=== PATIENT | male | born 1985 | race Caucasian/White ===

== ENCOUNTER 2019-08-15 03:39 | Inpatient (IN) | payer BC, SELFPAY ==
[2019-08-15] VITALS (22 sets, daily range): BP systolic 93–151; BP diastolic 36–79; PULSE 75–123; RESP 16–26; TEMP 36.6–37.8; O2SAT 86–100
--- NOTE | ~2019-08-15 | BM_ITS ---
EXAMINATION: CCL bone marrow asp w bx diag DATE: 08/18/2019 11:25 INDICATION: Anemia. TECHNIQUE: A time-out was performed to verify the patient's name, date of , and procedure to b e performed. The procedure including the risks, benefits, and alternatives was discussed with the pat ient. Risks discussed included bleeding and infection. The patient understood the risks and agreed to proceed. The skin overlying the right ilium was prepped and draped in usual sterile fashion. Anest hetic was administered with 1% lidocaine subcutaneously. 100 mcg fentanyl IV was given for pain contr ol. An 11 gauge needle was inserted into the ilium with fluoroscopic guidance. Bone marrow was aspir ated. An 8 gauge needle was then inserted into the ilium with fluoroscopic guidance. A core bone lianna ow biopsy was obtained. There were no immediate complications. Fluoroscopy exposure time was 0.0 quinn ginette. The total number of images was 8. FINDINGS: Real-time fluoroscopy demonstrates a marker overlying the right posterior superior iliac sp ine. IMPRESSION: 1. Fluoro-guided bone marrow aspiration. 2. Fluoro-guided bone marrow core biopsy. Reviewed, dictated and finalized at location A. H MERCERIZING SUPERVISOR
--- NOTE | ~2019-08-15 | XR_ITS ---
XR chest 2V DATE: 08/15/2019 04:32 INDICATION: Productive cough, fever, body aches TECHNIQUE: PA and lateral views COMPARISON: 04/11/2010 two-view chest FINDINGS: Normal heart size. No hilar or mediastinal enlargement. No pulmonary infiltrate or consolid ation, pleural effusion or pulmonary vascular congestion or pneumothorax. IMPRESSION: No active cardiopulmonary disease Reviewed, dictated and finalized at location A. STORE BANKER
--- NOTE | ~2019-08-15 | US_ITS ---
EXAMINATION: US renal BI EXAM DATE: 08/15/2019 11:32 INDICATION: Acute kidney insufficiency. TECHNIQUE: Multiple grayscale and Doppler images of the kidneys were obtained (by a technologist who performed the scan) and subsequently reviewed. There is no prior study for comparison. FINDINGS: There is hepatic steatosis. Right kidney: There is normal contour and echogenicity. It measures 11.9 x 5.1 x 6.5 centimeters. T here are no focal renal lesions identified. There is no hydronephrosis. Left kidney: Poorly visualized. There is normal contour and echogenicity. It measures 11.2 x 6.0 x 6 .5 centimeters. There are no focal renal lesions identified. Probably no hydronephrosis. The bladder is undistended and not visualized. IMPRESSION: 1. Sonographically unremarkable kidneys. 2. Hepatic steatosis. Reviewed, dictated and finalized at location A. SUPERVISOR
--- NOTE | ~2019-08-15 | CT_ITS ---
EXAMINATION: CT abdomen pelvis wo con DATE: 08/15/2019 05:51 INDICATION: Generalized abdominal pain, body aches, nausea TECHNIQUE: Computed tomography (CT) of the abdomen and pelvis was performed without intravenous contr ast. Automated exposure control and iterative reconstruction technique were employed. Exam dose: 164 2.26 mGy-cm total exam DLP. COMPARISON: None. FINDINGS: There are extensive micronodular densities scattered throughout the included lower lung zon es including middle lobe and lingula, both lower lobes. Normal heart size. No pericardial or pleural effusion. There is hepatic steatosis. No hepatic, splenic, pancreatic, adrenal or renal space-occupying mass le yanet is evident on this limited noncontrast examination. Normal caliber of the abdominal aorta. No intraperitoneal or retroperitoneal or pelvic mass lesion or adenopathy or ascites. The urinary bladder and prostate gland are unremarkable. Normal appendix. No bowel obstruction or intraperitoneal free air. There are some fluid levels in the colon which may be due to enteritis. There is a small fat-containing umbilical hernia and a small supraumbilical fat-containing hernia. No significant abnormality of the included skeletal structures IMPRESSION: Extensive micronodular densities in the lower lung zones; clinical correlation and follo w-up imaging is recommended. Hepatic steatosis There are some fluid levels in the colon which may be due to enteritis. Reviewed, dictated and finalized at Location A. Reviewed, dictated and finalized at location A. ATE CLERK IMPRESSION: Extensive micronodular densities in the lower lung zones; clinical correlation and follow-up imaging is recommended. Hepatic steatosis There are some fluid levels in the colon which may be due to enteritis.
--- NOTE | ~2019-08-15 | XR_ITS ---
EXAMINATION: XR chest 2V DATE: 08/21/2019 14:16 INDICATION: Cough. TECHNIQUE: Frontal and lateral views of the chest were obtained. COMPARISON: Chest 2 views 08/15/2019, CT abdomen and pelvis 08/15/2019 FINDINGS: There is a reticulonodular pattern in the mid and lower lung zones. No pleural effusion or pneumothorax. The heart size is normal. There is motion artifact on the lateral view. IMPRESSION: 1. Stable reticulonodular pattern in the mid and lower lung zones, consistent with pneumonia. Reviewed, dictated and finalized at location A. E BALL MIXER IMPRESSION: 1. Stable reticulonodular pattern in the mid and lower lung zones, consistent w ith pneumonia.
--- NOTE | 2019-08-15 04:31 | ED.URI ---
HPI - URI/Sore Throat General Chief Complaint: Upper Respiratory Infection <Jatinder Pedro DO - Last Filed: 08/15/19 06:18> Stated Complaint: COUGH <Jatinder Pedro DO - Last Filed: 08/15/19 06:18> Time Seen by Provider: 08/15/19 04:09 <Jatinder Pedro DO - Last Filed: 08/15/19 06:18> Source: old records reviewed <Jatinder Pedro DO - Last Filed: 08/15/19 06:18> History of Present Illness HPI Narrative: Patient presents emergency department from home for upper respiratory infection. Patient states symptoms been ongoing for the past 2 weeks. She has had a cough is been productive of yellow sputum as well as rhinorrhea sore throat nausea and vomiting and intermittent diarrhea. Patient states he has had intermittent fevers with last fever 3 days ago. He denies any chest pain. Does note some mild upper abdominal pain.. Patient states he saw his PCP last week and was on steroids and antibiotics which she has since finished <Jatinder Pedro DO - Last Filed: 08/15/19 06:18> Related Data Home Medications: Home Medications Medication Instructions Recorded Confirmed albuterol sulfate 1 INHALATION Q4-5H 08/15/19 <Jatinder Pedro DO - Last Filed: 08/15/19 06:18> Allergies/Adverse Reactions: Allergies Allergy/AdvReac Type Severity Reaction Status Date / Time peanut Allergy Unknown Itching Verified 08/15/19 03:46 <DO Angi Alaniz Last Filed: 08/15/19 06:18> Review of Systems Review of Systems: Narrative: Gen.: Reports intermittent fevers ENT: Reports congestion Respiratory: Denies shortness of breath reports cough CV: Denies chest pain or palpitations GI: Reports nausea vomiting Musculoskeletal: Denies back pain or muscle pain Neuro: Denies numbness, tingling, weakness or focal weakness Skin: Denies rash Except as documented, all other systems reviewed and negative <Jatinder Pedro DO - Last Filed: 08/15/19 06:18> [facility] Surgical History Surgical History: Surgical History (Updated 08/15/19 @ 04:33 by Jatinder Pedro DO) H/O vasectomy <Jatinder Pedro DO - Last Filed: 08/15/19 06:18> Social History Social History: Social History (Updated 08/15/19 @ 04:33 by Jatinder Pedro DO) Smoking status: Former smoker Gender identity (if verbalized by the patient): Male <Jatinder Pedro DO - Last Filed: 08/15/19 06:18> Exam Narrative: Exam Narrative: APPEARANCE: No acute distress, nontoxic, resting in bed EYES: EOMI HEENT: Normocephalic, atraumatic, TMs clear bilaterally, bilateral turbinates boggy, mild erythema no exudate posterior pharynx oral mucosa dry RESPIRATORY: No respiratory distress Clear to auscultation bilaterally with no rhonchi wheezing or rales. CARDIOVASCULAR: Regular rate and rhythm without murmurs rubs or gallops. ABDOMINAL: Soft, nondistended, tender palpation epigastric and left upper quadrant, no tenderness right upper quadrant, right lower quadrant left lower quadrant, no rebound or guarding MUSCULOSKELETAl: Moves all extremities. No clubbing, cyanosis or edema. NEURO: Awake and alert. Following commands, speech normal, no focal deficits SKIN:: Warm, dry. No rashes lesions or abrasions PSYCHIATRIC: Normal affect/mood, <Jatinder Pedro DO - Last Filed: 08/15/19 06:18> Course Course Emergency Course: Of note patient initially with symptoms of upper respiratory infection has been having some nausea and vomiting. Toradol was initially given as the patient has no history of renal insufficiency. Creatinine did come back elevated and will hold any further NSAIDs <Jatinder Pedro DO - Last Filed: 08/15/19 06:18> Reevaluation(s) Reevaluation #1: He is in acute respiratory failure with new oxygen requirement. He is in acute renal failure with creatinine of 3.0. CT shows likely viral pneumonia. He also has mild rhabdomyolysis and possible UTI. I will plan to admit for IVF. Despite this likely b
[2019-08-15] MEDS: LACTATED RINGERS 1,000 ML 999 ML IV CONT ×2 (04:51→07:17)
[2019-08-15] MEDS: KETOROLAC 30 MG/ML VIAL (*BKC) IV PUSH (04:51)
[2019-08-15 05:02] LABS: Alanine Aminotransferase 41 U/L (4-50); Albumin Level 3.7 g/dL (3.5-5.1); Alkaline Phosphatase 85 U/L (38-126); Aspartate Amino Transferase 67 U/L (17-59); Bilirubin,Total 4.1 mg/dL (0.2-1.3); Blood Urea Nitrogen 47 mg/dL (9-20); Calcium 8.6 mg/dL (8.4-10.2); Carbon Dioxide 30 mmol/L (22-30); Chloride 91 mmol/L (98-107); Estimated Glomerular Filt Rate 24; Glucose 125 mg/dL (75-110); Potassium 3.4 mmol/L (3.4-5.0); Sodium 133 mmol/L (137-145)
[2019-08-15] MEDS: ALBUTEROL SULFATE NEB 2.5 MG/0.5 ML INH 5 MG INHALATION ×3 (05:11→20:22)
[2019-08-15] MEDS: IPRATROPIUM BR 0.02% INH SOLN 0.5 MG/2.5 ML VIAL INHALATION ×3 (05:11→20:22)
--- NOTE | 2019-08-15 05:39 | PC.NURSE ---
pt to CT via stretcher
[2019-08-15 06:06] LABS: Lactic Acid Reflex 1.1 mmol/L (0.7-2.1); Lipase 51 U/L (23-300)
[2019-08-15 06:10] LABS: INR 1.1; Prothrombin Time 14.2 Seconds (11.1-14.7)
[2019-08-15 06:11] LABS: Partial Thromboplastin Time 34.2 SECONDS (22.3-36.8)
[2019-08-15 06:27] LABS: Add Urine Microscopic? YES; Appearance Urine Cloudy (Clear); Bacteria Urine Trace /hpf; Bilirubin Urine Negative (Negative); Blood Urine 3+ (Negative); Color Urine Amber (Yellow); Glucose Urine UA Negative (Negative); Ketones Urine Negative (Negative); Leukocyte Esterase Ur 1+ LEU/UL (Negative); Mucus Urine Rare /lpf; Nitrate Urine Negative (Negative); Protein Urine 2+ mg/dL (Negative); RBC Urine 51-75 /hpf (0-2); Specific Grav Ur 1.017 (1.001-1.035); Squamous Epithelial Cell Urine Moderate /hpf (Few); Urobilinogen Urine Negative mg/dL (<2.0); WBC Urine 31-50 /hpf
[2019-08-15 06:49] LABS: Basophils Absolute Auto 0.1 K/mm3 (0.0-0.1); Basophils Percent Auto 0.3 % (0.2-1.2); Eosinophils Absolute Auto 0.2 K/mm3 (0-0.3); Eosinophils Percent Auto 0.7 % (0-4.4); Hematocrit 25.5 % (42.0-52.0); Hemoglobin 8.9 g/dL (14.0-18.0); Immature Granulocyte Absolute 0.46 K/mm3 (0.00-0.031); Immature Granulocyte Percent A 1.9 % (0-0.5); Lymphocytes Absolute Auto 1.89 K/mm3 (0.9-3.2); Lymphocytes Percent Auto 7.8 % (18.3-44.2); Mean Corpuscular HGB Conc 34.9 g/dl (32-36); Mean Corpuscular Hemoglobin 31.7 pg (26-34); Mean Corpuscular Volume 90.7 fl (80-100); Mean Platelet Volume 10.4 fl (7.4-10.4); Monocytes Absolute Auto 1.8 K/mm3 (0.1-0.6); Monocytes Percent Auto 7.4 % (2.6-8.5); Neutrophils Absolute Auto 19.9 K/mm3 (1.3-6.7); Neutrophils Percent Auto 81.9 % (45.5-73.1); Platelet Count Result 269 k/mm3 (150-375); Red Blood Count 2.81 M/mm3 (4.6-6.20); Red Cell Distribution Width 19.3 % (11.5-14.5); White Blood Count 24.2 K/mm3 (4.5-10.0)
[2019-08-15 07:21] LABS: Creatine Kinase 1108 U/L (55-170)
--- NOTE | 2019-08-15 08:00 | PC.NURSE ---
PT IV NOTED TO BE INFILTRATED AND PT UPPER AND LOWER ARM IS COOL, SWOLLEN AND TAUGHT. ERP AT BEDSIDE, DOPPLES PULSE WITHOUT DIFFICULTY, EXTREMITY ELEVATED PER HIS INSTRUCTION, NO FURTHER ORDERS AT THIS TIME.
--- NOTE | 2019-08-15 08:18 | PM.IMHP ---
H&P: HPI History of Present Illness Chief complaint: Acute respiratory failure with hypoxia/Pneumonia Narrative: Zheng Carrizales is a 34 year old healthy male here for viral URI symptoms and found to have LEONEL and sepsis. Patient's symptoms began about 2 weeks ago. He has been having nausea and vomiting. He has also been having rhinorrhea and congestion and cough. No otalgia. He did travel to [place] but had symptoms prior to boarding the plane. No other travel. Patient was having fever, chills and night sweats. He saw his primary care doctor on August 05 and was treated with albuterol, Augmentin x 10 days, prednisone x7 days, anti emetic and antitussive medication. Symptoms improved over the next 4-5 days but condition worsened about 5 days ago. He has just finished his antibiotics. He has been having shortness of breath with dyspnea on exertion. He has been having coughing jags that break with vomiting. His cough is mostly dry but does produce yellow-green sputum at times. Did have 1 episode of hemoptysis. His fever has returned to as high as 104. Is complaining of upper abdominal pain and back pain. His oral intake has been poor mostly just clear liquids. Over the past 2 days he has had bilateral lower extremity edema and tingling in his feet. He has chest ?tightness? for the past 2 days and it has been constant associated with the shortness of breath. He is having diarrhea that he describes as liquid stool but having a bowel movement every other day on average. No melena or hematochezia. No hematemesis. His urine is dark but no foam or hematuria. He denies dysuria. Urine output has been poor. His son had cold-like symptoms a month ago but he tolerated them well. Patient has difficulty lying flat in bed because of shortness of breath. He has some mild myalgias. Patient has been sitting on the couch and not very active the past 2 weeks. Because of the persistent symptoms patient presented to the emergency room for evaluation. The emergency room patient fever to 100 0. Pulse was 123 with respiratory rate 26. Blood pressure is 116/62. Patient was seen and examined in the emergency room. White count 29343 the hemoglobin 8.9. BUN 47 creatinine 3. Total bilirubin is 4.1. Total CK is 1100. UA does shows 3+ blood and 51-75 red cells 31-50 white cells . He was started on IV fluids. He was given nebulizer treatment. Rocephin and azithromycin started. Protonix given as well. During my exam in the ER, it was noted that his right arm had become extremely edematous. His IV fluids were stopped. Patient with complain numbness tingling in his fingers. Were unable to palpate a radial pulse to the edema. Informed the ER physician and we were able to Doppler a pulse. Right arm was elevated. This will need close monitoring. Review of Systems Review of Systems: All systems reviewed & are unremarkable except as noted in HPI and below PMFSH Surgical History Surgical History (Updated 08/15/19 @ 08:43 by Cuba Yadav MD) H/O vasectomy Social History Social History (Updated 08/15/19 @ 08:34 by Cuba Yadav MD) Social History: Patient quit smoking about 5 years ago after smoking a pack a day for about 12 years. He denies alcohol or drug use. Lives at home with his 2 sons. He is . Children currently staying with his ex-. Patient is a full code. He nominates his ex- Karla be the individual would make medical decisions for him if he is unable. Smoking packs per day: 1 Smoking cigarettes per day: 20.0 Smoking status: Former smoker Tobacco type: cigarettes Smoking end date: 08/04/14 Alcohol intake: never Substance use: never Gender identity (if verbalized by the patient): Male Spiritual care concerns: No Agree to blood products: No Meds Home Medications and Allergies Home Medications Medication Instructions Recorded Confirmed Type No Home Medications 08/16/19 08/16/19 H
[2019-08-15] MEDS: ONDANSETRON INJ 4 MG/2 ML VIAL IV PUSH (08:32)
[2019-08-15] MEDS: PANTOPRAZOLE SODIUM IV 40 MG VIAL IV PUSH (08:33)
[2019-08-15] MEDS: SODIUM CHLORIDE 0.9% IV 1,000 ML 999 ML IV CONT (08:54)
[2019-08-15 10:11] LABS: Bilirubin Indirect 2.3 mg/dL (0-1.1); Lactate Dehydrogenase 704 U/L (313-618)
[2019-08-15 10:13] LABS: CRP 19.3 mg/dL (<1.0)
[2019-08-15] MEDS: LACTATED RINGERS 1,000 ML 125 ML IV CONT ×2 (10:31→18:54)
--- NOTE | 2019-08-15 10:33 | PCRCNOTE ---
Window of time for administration has passed. See next scheduled administration.
[2019-08-15 11:01] LABS: Folic Acid 7.7 ng/mL (2.76->20)
[2019-08-15 11:37] LABS: Sodium Urine Random < 5 meq/L
[2019-08-15 12:15] LABS: Iron 73 ug/dL (49-181)
[2019-08-15 12:30] LABS: Percent Iron Saturation 41 % (20-50)
--- NOTE | 2019-08-15 15:29 | PC.NURSE ---
Patient arrived on our floor at 0900.
--- NOTE | 2019-08-15 16:04 | PC.NURSE ---
Patient arrived on our floor from ER @0900.
[2019-08-15 18:57] LABS: Albumin Level 2.8 g/dL (3.5-5.1); Blood Urea Nitrogen 55 mg/dL (9-20); Calcium 7.7 mg/dL (8.4-10.2); Carbon Dioxide 26 mmol/L (22-30); Chloride 97 mmol/L (98-107); Estimated Glomerular Filt Rate 27; Glucose 91 mg/dL (75-110); Phosphorus 2.7 mg/dL (2.5-4.5); Potassium 3.5 mmol/L (3.4-5.0); Sodium 132 mmol/L (137-145)
--- NOTE | 2019-08-15 19:42 | PC.NURSE ---
Patient states taking no daily medication outside of the hospital.
[2019-08-16] VITALS (20 sets, daily range): BP systolic 96–123; BP diastolic 47–77; PULSE 88–105; RESP 16–20; TEMP 36.6–37.3; O2SAT 91–100
[2019-08-16] MEDS: ALBUTEROL SULFATE NEB 2.5 MG/0.5 ML INH 5 MG INHALATION ×4 (02:14→20:59)
[2019-08-16] MEDS: IPRATROPIUM BR 0.02% INH SOLN 0.5 MG/2.5 ML VIAL INHALATION ×4 (02:15→20:59)
[2019-08-16] MEDS: LACTATED RINGERS 1,000 ML 125 ML IV CONT ×2 (03:00→17:00)
[2019-08-16 06:47] LABS: Alanine Aminotransferase 35 U/L (4-50); Albumin Level 2.8 g/dL (3.5-5.1); Alkaline Phosphatase 65 U/L (38-126); Aspartate Amino Transferase 54 U/L (17-59); Bilirubin,Total 2.9 mg/dL (0.2-1.3); Blood Urea Nitrogen 46 mg/dL (9-20); Calcium 7.5 mg/dL (8.4-10.2); Carbon Dioxide 28 mmol/L (22-30); Chloride 96 mmol/L (98-107); Creatine Kinase 834 U/L (55-170); Estimated Glomerular Filt Rate 29; Glucose 98 mg/dL (75-110); Phosphorus 3.2 mg/dL (2.5-4.5); Potassium 3.1 mmol/L (3.4-5.0); Sodium 134 mmol/L (137-145)
[2019-08-16 07:11] LABS: Basophils Percent Auto 0.2 % (0.2-1.2); Eosinophils Absolute Auto 0.3 K/mm3 (0-0.3); Eosinophils Percent Auto 1.5 % (0-4.4); Immature Granulocyte Absolute 0.25 K/mm3 (0.00-0.031); Immature Granulocyte Percent A 1.5 % (0-0.5); Lymphocytes Absolute Auto 1.89 K/mm3 (0.9-3.2); Lymphocytes Percent Auto 11.5 % (18.3-44.2); Mean Corpuscular HGB Conc 32.2 g/dl (32-36); Mean Corpuscular Hemoglobin 28.6 pg (26-34); Mean Corpuscular Volume 88.7 fl (80-100); Mean Platelet Volume 10.5 fl (7.4-10.4); Monocytes Absolute Auto 1.2 K/mm3 (0.1-0.6); Monocytes Percent Auto 7.1 % (2.6-8.5); Neutrophils Absolute Auto 12.8 K/mm3 (1.3-6.7); Neutrophils Percent Auto 78.2 % (45.5-73.1); Nucleated Red Blood Cells Perc 0.1 % (0.0-0.2); Platelet Count Result 242 k/mm3 (150-375); Red Blood Count 2.31 M/mm3 (4.6-6.20); Red Cell Distribution Width 16.1 % (11.5-14.5); White Blood Count 16.4 K/mm3 (4.5-10.0)
[2019-08-16 07:13] LABS: Hemoglobin 6.6 g/dL (14.0-18.0)
[2019-08-16 07:14] LABS: Hematocrit 20.5 % (42.0-52.0)
[2019-08-16 07:45] LABS: Complement C3 68 mg/dL (88-165)
--- NOTE | 2019-08-16 07:59 | PM.IMPN ---
Progress Note: A&P Assessment and Plan (1) Sepsis: Qualifiers: Acute renal failure type: with acute tubular necrosis Sepsis acute organ dysfunction status: with acute organ dysfunction Sepsis type: sepsis due to unspecified organism Severe sepsis acute organ dysfunction type: acute renal failure Severe sepsis shock status: without septic shock Qualified Code(s): A41.9 - Sepsis, unspecified organism; R65.20 - Severe sepsis without septic shock; N17.0 - Acute kidney failure with tubular necrosis Code(s): A41.9 - Sepsis, unspecified organism Status: Acute (2) Acute renal failure: Qualifiers: Acute renal failure type: unspecified Qualified Code(s): N17.9 - Acute kidney failure, unspecified Code(s): N17.9 - Acute kidney failure, unspecified Status: Acute (3) Acute respiratory failure with hypoxia: Code(s): J96.01 - Acute respiratory failure with hypoxia Status: Acute (4) Pneumonia: Qualifiers: Laterality: bilateral Lung location: lower lobe of lung Pneumonia type: due to unspecified organism Qualified Code(s): J18.9 - Pneumonia, unspecified organism Code(s): J18.9 - Pneumonia, unspecified organism Status: Acute (5) Anemia: Qualifiers: Anemia type: unspecified type Qualified Code(s): D64.9 - Anemia, unspecified Code(s): D64.9 - Anemia, unspecified Status: Acute (6) Rhabdomyolysis: Qualifiers: Rhabdomyolysis type: non-traumatic Qualified Code(s): M62.82 - Rhabdomyolysis Code(s): M62.82 - Rhabdomyolysis Status: Acute (7) Arm edema: Code(s): R60.0 - Localized edema Status: Acute (8) Hyperbilirubinemia: Code(s): E80.6 - Other disorders of bilirubin metabolism Status: Acute (9) UTI (urinary tract infection): Qualifiers: Hematuria presence: with hematuria Urinary tract infection type: acute cystitis Qualified Code(s): N30.01 - Acute cystitis with hematuria Code(s): N39.0 - Urinary tract infection, site not specified Status: Acute Additional Plan 08/15/2019 -- Patient to be admitted to the medical floor. Continue to have the right arm elevated and will neuro checks every 2 hours. This should resolve with time. Patient appears to have a viral syndrome with viral pneumonia. Will check pertussis and chlamydia. Will continue Rocephin for possible UTI. Continue azithromycin for possible atypical pneumonia. Blood and urine cultures have been collected. Will check iron studies B12 given his anemia. There is concern for possible hemolysis given the elevated total bili. Will check LDH, indirect bili and haptoglobin. Check CRP. Renal failure most likely prerenal from his nausea, vomiting and diarrhea but cannot exclude post infectious etiology. The mild rhabdomyolysis may also be contributing although did not feel this is the primary insult to the kidney. Consider also acute interstital nephritis since recently on Augmentin. Monitor urine output closely. Check urine studies and renal ultrasound. He denies HIV risk factors. Will check a rapid strep screen. Check ASO. Lower extremity edema probably related to renal failure poor urine output. Will monitor the values closely and consider nephrology consult if he does not improve as expected. SCDs for DVT prophylaxis. Further recommendations as course dictates. 08/16/19 -- Urine Na<5 to suggest a prerenal componenet. Cr trending down but without significant change overnight. TCK trending down and is the TBili. WBC better but cough persistent. RSS negative. Cultures pending. Histo, Legionella and other atypical infections being considered. Consider Coccidio but Downs not in that area. Hepatitis panel negative. Hgb dropped to 6.6. Transfusion ordered. Suspect related to IV fluids and not continued loss. Will place on telemetry given his symptoms of palpitations. Replace potassium. Nephrolog
[2019-08-16] MEDS: POTASSIUM CHLORIDE 20 MEQ TABLET 40 MEQ PO (08:07)
[2019-08-16 09:13] LABS: Hepatitis B Surface Antigen Negative (Negative)
[2019-08-16 09:19] LABS: HAV RESULT Negative (Negative); Hepatitis B Core IgM Result Negative (Negative)
[2019-08-16 09:31] LABS: Hepatitis C Virus Antibody Negative (Negative)
[2019-08-16] MEDS: PANTOPRAZOLE SODIUM IV 40 MG VIAL IV PUSH (12:28)
--- NOTE | 2019-08-16 18:10 | PM.CNNEP ---
Assessment and Plan Assessment and plan (1) Acute renal failure: Qualifiers: Acute renal failure type: unspecified Qualified Code(s): N17.9 - Acute kidney failure, unspecified Code(s): N17.9 - Acute kidney failure, unspecified Status: Acute (2) Sepsis: Qualifiers: Acute renal failure type: with acute tubular necrosis Sepsis acute organ dysfunction status: with acute organ dysfunction Sepsis type: sepsis due to unspecified organism Severe sepsis acute organ dysfunction type: acute renal failure Severe sepsis shock status: without septic shock Qualified Code(s): A41.9 - Sepsis, unspecified organism; R65.20 - Severe sepsis without septic shock; N17.0 - Acute kidney failure with tubular necrosis Code(s): A41.9 - Sepsis, unspecified organism Status: Acute (3) UTI (urinary tract infection): Qualifiers: Hematuria presence: with hematuria Urinary tract infection type: acute cystitis Qualified Code(s): N30.01 - Acute cystitis with hematuria Code(s): N39.0 - Urinary tract infection, site not specified Status: Acute (4) Pneumonia: Qualifiers: Laterality: bilateral Lung location: lower lobe of lung Pneumonia type: due to unspecified organism Qualified Code(s): J18.9 - Pneumonia, unspecified organism Code(s): J18.9 - Pneumonia, unspecified organism Status: Acute (5) Anemia: Qualifiers: Anemia type: unspecified type Qualified Code(s): D64.9 - Anemia, unspecified Code(s): D64.9 - Anemia, unspecified Status: Acute (6) Rhabdomyolysis: Qualifiers: Rhabdomyolysis type: non-traumatic Qualified Code(s): M62.82 - Rhabdomyolysis Code(s): M62.82 - Rhabdomyolysis Status: Acute Assessment and Plan: . Additional Plan Zheng has acute renal failure as evidenced by his admission labs. However, despite aggressive supportive therapy, his kidney function has not significantly improved. I suspect his acute renal failure is multifactorial in etiology. He has had numerous insults to his kidneys over the last week if not longer ranging from volume depletion as evidenced by his history of nausea, vomiting, and diarrhea coupled with poor oral intake and high fevers supported by his pre renal urine electrolytes. Other contributing factors to his renal dysfunction include rhabdomyolysis, infection/sepsis (suspected viral pneumonia as well as bacterial urinary tract infection) and anemia. My other concern of course is that perhaps maybe his renal dysfunction is partly related to the presence of an autoimmune disorder or vasculitis. His urinalysis demonstrated blood and protein and he also gave a history of hemoptysis as well. Multiple serological studies have been already ordered (his C3 and C4 are low) which seems appropriate to ensure we are not missing some other etiology to his renal dysfunction. His renal ultrasound does not demonstrate any type anatomical abnormalities and as already mentioned multiple serological studies are pending at this time. He is making urine however, but it appears to be somewhat stagnant but given the history as mentioned above, one cannot deny the possibility that there may be a component of acute tubular necrosis playing a role as well. His anemia is quite severe and could be partly related to his renal dysfunction; PRBC transfusion today would follow the trend of his H/H - his LDH was slightly elevated (but his haptoglobin is pending) -- hemolytic anemia present?? In spite of his anemia, he remains hemodynamicallly stable. I did have a very long and lengthy discussion with the patient and his family at bedside (greater than 20 minutes) regarding his renal dysfunction, the workup and evaluation that has been ordered/pending at this time. I also did bring up the issue/possibility of the need for a renal biopsy for definitive diagnosis if his renal function fails to im
[2019-08-16 22:20] LABS: Hemoglobin 6.6 g/dL (14.0-18.0)
[2019-08-16 22:21] LABS: Hematocrit 15.5 % (42.0-52.0)
[2019-08-17] VITALS (23 sets, daily range): BP systolic 91–130; BP diastolic 42–76; PULSE 80–97; RESP 14–20; TEMP 35.7–37.4; O2SAT 91–98
[2019-08-17] MEDS: LACTATED RINGERS 1,000 ML 125 ML IV CONT ×3 (00:59→23:31)
[2019-08-17] MEDS: ALBUTEROL SULFATE NEB 2.5 MG/0.5 ML INH 5 MG INHALATION ×4 (01:51→19:52)
[2019-08-17] MEDS: IPRATROPIUM BR 0.02% INH SOLN 0.5 MG/2.5 ML VIAL INHALATION ×4 (01:51→19:52)
[2019-08-17 06:17] LABS: Creatine Kinase 352 U/L (55-170)
[2019-08-17 06:31] LABS: Albumin Level 2.7 g/dL (3.5-5.1); Blood Urea Nitrogen 33 mg/dL (9-20); CRP 8.4 mg/dL (<1.0); Calcium 7.6 mg/dL (8.4-10.2); Carbon Dioxide 30 mmol/L (22-30); Chloride 97 mmol/L (98-107); Estimated Glomerular Filt Rate 36; Glucose 110 mg/dL (75-110); Phosphorus 2.2 mg/dL (2.5-4.5); Sodium 135 mmol/L (137-145)
[2019-08-17 06:35] LABS: Basophils Absolute Auto 0.1 K/mm3 (0.0-0.1); Basophils Percent Auto 0.4 % (0.2-1.2); Eosinophils Absolute Auto 0.2 K/mm3 (0-0.3); Eosinophils Percent Auto 1.4 % (0-4.4); Immature Granulocyte Absolute 0.18 K/mm3 (0.00-0.031); Immature Granulocyte Percent A 1.5 % (0-0.5); Lymphocytes Absolute Auto 1.37 K/mm3 (0.9-3.2); Lymphocytes Percent Auto 11.5 % (18.3-44.2); Mean Corpuscular HGB Conc 31.8 g/dl (32-36); Mean Corpuscular Hemoglobin 27.7 pg (26-34); Mean Platelet Volume 10.4 fl (7.4-10.4); Monocytes Absolute Auto 0.9 K/mm3 (0.1-0.6); Monocytes Percent Auto 7.5 % (2.6-8.5); Neutrophils Absolute Auto 9.3 K/mm3 (1.3-6.7); Neutrophils Percent Auto 77.7 % (45.5-73.1); Nucleated Red Blood Cells Perc 0.3 % (0.0-0.2); Platelet Count Result 213 k/mm3 (150-375); Red Blood Count 2.31 M/mm3 (4.6-6.20); Red Cell Distribution Width 16.6 % (11.5-14.5); White Blood Count 11.9 K/mm3 (4.5-10.0)
[2019-08-17 06:36] LABS: Hematocrit 20.1 % (42.0-52.0); Hemoglobin 6.4 g/dL (14.0-18.0)
--- NOTE | 2019-08-17 10:28 | P.PNNP_ITS ---
Progress Note: A&P Assessment and Plan (1) Acute renal failure: Qualifiers: Acute renal failure type: unspecified Qualified Code(s): N17.9 - Acute kidney failure, unspecified Code(s): N17.9 - Acute kidney failure, unspecified Status: Acute Assessment and Plan: * suspect multifactorial etiology: - dehydration/volume depletion (supported by pre-renal urine electrolytes) - infection/sepsis(?) - rhabdomyolysis - anemia - possible autoimmune disorder/vasculitis(?) - blood and protein in urine and history of hemoptysis... * creatinine slowly improving * no critical electrolytes and making urine * follow-up on pending serological testing (2) Sepsis: Qualifiers: Acute renal failure type: with acute tubular necrosis Sepsis acute organ dysfunction status: with acute organ dysfunction Sepsis type: sepsis due to unspecified organism Severe sepsis acute organ dysfunction type: acute renal failure Severe sepsis shock status: without septic shock Qualified Code(s): A41.9 - Sepsis, unspecified organism; R65.20 - Severe sepsis without septic shock; N17.0 - Acute kidney failure with tubular necrosis Code(s): A41.9 - Sepsis, unspecified organism Status: Acute Assessment and Plan: * evidenced by tachycarida, tachypnea, elevated WBC and fever on admission * follow-up on culture data * on antibiotics * follow hemodynamics (3) UTI (urinary tract infection): Qualifiers: Hematuria presence: with hematuria Urinary tract infection type: acute cystitis Qualified Code(s): N30.01 - Acute cystitis with hematuria Code(s): N39.0 - Urinary tract infection, site not specified Status: Acute Assessment and Plan: * UA suggestive of this * however, urine culture negative * on antibiotics (4) Pneumonia: Qualifiers: Laterality: bilateral Lung location: lower lobe of lung Pneumonia type : due to unspecified organism Qualified Code(s): J18.9 - Pneumonia, unspecified organism Code(s): J18.9 - Pneumonia, unspecified organism Status: Acute Assessment and Plan: * suspect viral in etiology * however, cannot discount atypical organisms * on antibiotics * follow-up on pending titers (legionella, chlamydia....etc) (5) Anemia: Qualifiers: Anemia type: unspecified type Qualified Code(s): D64.9 - Anemia, unspecified Code(s): D64.9 - Anemia, unspecified Status: Acute Assessment and Plan: * quite significant * no improvement s/p 2 units of PRBCs yesterday * hemolysis?? -- LDH mildly elevated but haptoglobin pending * Hem/Onc consulted (6) Rhabdomyolysis: Qualifiers: Rhabdomyolysis type: non-traumatic Qualified Code(s): M62.82 - Rhabdomyolysis Code(s): M62.82 - Rhabdomyolysis Status: Acute Assessment and Plan: * CPK is improving * follow trend Will continue to follow. Subjective Date/time seen: 08/17/19 10:28 Tolerated PRBC transfusion yesterday but did not increment appropriately with regard to H/H; Hem/Onc consulted for further assessment; eating some and making urine in the last 24 hours; still has on/off myalgias along with generalized weakness as well as cough and shortness of breath. Exam Narrative: Exam Narrative: General: WD/WN male in NAD Heart: normal S1 and S2; no rub Lungs: decreased at bases with a few crackles noted Abdomen: soft, nontender, nondistended, positive bowel sounds Extremities
--- NOTE | 2019-08-17 10:28 | PM.PNNEP ---
Progress Note: A&P Assessment and Plan (1) Acute renal failure: Qualifiers: Acute renal failure type: unspecified Qualified Code(s): N17.9 - Acute kidney failure, unspecified Code(s): N17.9 - Acute kidney failure, unspecified Status: Acute Assessment and Plan: suspect multifactorial etiology: - dehydration/volume depletion (supported by pre-renal urine electrolytes) - infection/sepsis(?) - rhabdomyolysis - anemia - possible autoimmune disorder/vasculitis(?) - blood and protein in urine and history of hemoptysis... creatinine slowly improving no critical electrolytes and making urine follow-up on pending serological testing (2) Sepsis: Qualifiers: Acute renal failure type: with acute tubular necrosis Sepsis acute organ dysfunction status: with acute organ dysfunction Sepsis type: sepsis due to unspecified organism Severe sepsis acute organ dysfunction type: acute renal failure Severe sepsis shock status: without septic shock Qualified Code(s): A41.9 - Sepsis, unspecified organism; R65.20 - Severe sepsis without septic shock; N17.0 - Acute kidney failure with tubular necrosis Code(s): A41.9 - Sepsis, unspecified organism Status: Acute Assessment and Plan: evidenced by tachycarida, tachypnea, elevated WBC and fever on admission follow-up on culture data on antibiotics follow hemodynamics (3) UTI (urinary tract infection): Qualifiers: Hematuria presence: with hematuria Urinary tract infection type: acute cystitis Qualified Code(s): N30.01 - Acute cystitis with hematuria Code(s): N39.0 - Urinary tract infection, site not specified Status: Acute Assessment and Plan: UA suggestive of this however, urine culture negative on antibiotics (4) Pneumonia: Qualifiers: Laterality: bilateral Lung location: lower lobe of lung Pneumonia type: due to unspecified organism Qualified Code(s): J18.9 - Pneumonia, unspecified organism Code(s): J18.9 - Pneumonia, unspecified organism Status: Acute Assessment and Plan: suspect viral in etiology however, cannot discount atypical organisms on antibiotics follow-up on pending titers (legionella, chlamydia....etc) (5) Anemia: Qualifiers: Anemia type: unspecified type Qualified Code(s): D64.9 - Anemia, unspecified Code(s): D64.9 - Anemia, unspecified Status: Acute Assessment and Plan: quite significant no improvement s/p 2 units of PRBCs yesterday hemolysis?? -- LDH mildly elevated but haptoglobin pending Hem/Onc consulted (6) Rhabdomyolysis: Qualifiers: Rhabdomyolysis type: non-traumatic Qualified Code(s): M62.82 - Rhabdomyolysis Code(s): M62.82 - Rhabdomyolysis Status: Acute Assessment and Plan: CPK is improving follow trend Will continue to follow. Subjective Date/time seen: 08/17/19 10:28 Tolerated PRBC transfusion yesterday but did not increment appropriately with regard to H/H; Hem/Onc consulted for further assessment; eating some and making urine in the last 24 hours; still has on/off myalgias along with generalized weakness as well as cough and shortness of breath. Exam Narrative: Exam Narrative: General: WD/WN male in NAD Heart: normal S1 and S2; no rub Lungs: decreased at bases with a few crackles noted Abdomen: soft, nontender, nondistended, positive bowel sounds Extremities: no cyanosis or clubbing; trace edema Skin: warm and dry Objective Data Vital Signs Vital Signs: Vital Signs Temp Pulse Resp BP Pulse Ox 08/17/19 09:52 35.7 C L 94 18 105/46 L 94 08/17/19 09:40 96 20 08/17/19 09:37 37.4 C 94 18 108/50 L 95 08/17/19 09:28 95 20 92 08/17/19 05:58 36.9 C 96 20 119/65 92 08/17/19 04:00 97 08/17/19 02:04 91 16 08/17/19 01:54 87 16 08/17/19 00:00 86
[2019-08-17 11:42] LABS: B. pertussis Source Swab
[2019-08-17] MEDS: SODIUM CHLORIDE 0.9% IV 250 ML 30 ML IV CONT (12:05)
[2019-08-17] MEDS: PANTOPRAZOLE SODIUM IV 40 MG VIAL IV PUSH (12:46)
--- NOTE | 2019-08-17 13:12 | PM.IMPN ---
Progress Note: A&P Assessment and Plan (1) Sepsis: Qualifiers: Acute renal failure type: with acute tubular necrosis Sepsis acute organ dysfunction status: with acute organ dysfunction Sepsis type: sepsis due to unspecified organism Severe sepsis acute organ dysfunction type: acute renal failure Severe sepsis shock status: without septic shock Qualified Code(s): A41.9 - Sepsis, unspecified organism; R65.20 - Severe sepsis without septic shock; N17.0 - Acute kidney failure with tubular necrosis Code(s): A41.9 - Sepsis, unspecified organism Status: Acute Assessment and Plan: Criteria met on admission. Urine culture is negative. Blood cultures remain negative to date. Group a strep culture negative. Remains on IV ceftriaxone and azithromycin. Will continue to monitor. (2) Acute renal failure: Qualifiers: Acute renal failure type: unspecified Qualified Code(s): N17.9 - Acute kidney failure, unspecified Code(s): N17.9 - Acute kidney failure, unspecified Status: Acute Assessment and Plan: Appreciate help from Nephrology. Suspicion is this is multifactorial. Creatinine only minimally better at 2.10 today. Additional workup in process. Will continue to follow. (3) Anemia: Qualifiers: Anemia type: unspecified type Qualified Code(s): D64.9 - Anemia, unspecified Code(s): D64.9 - Anemia, unspecified Status: Acute Assessment and Plan: Workup in progress. Appreciate help from Hematology. Hemoglobin decreased to 6.4 this morning with 1 unit PRBC transfused with improvement of hemoglobin to 7.6. Plan for bone marrow biopsy at this time. Will continue to monitor H&H. Transfuse as needed. (4) Acute respiratory failure with hypoxia: Code(s): J96.01 - Acute respiratory failure with hypoxia Status: Acute Assessment and Plan: Result of pneumonia and possibly acute renal failure. Remains on 2 L of oxygen. Will continue IV antibiotics as noted. Continue nebulizer treatments. (5) Pneumonia: Qualifiers: Laterality: bilateral Lung location: lower lobe of lung Pneumonia type: due to unspecified organism Qualified Code(s): J18.9 - Pneumonia, unspecified organism Code(s): J18.9 - Pneumonia, unspecified organism Status: Acute Assessment and Plan: Chest x-ray negative but CT abdomen and pelvis with extensive micronodular densities scattered throughout the lower lung zones bilaterally. Remains on IV antibiotics as noted. Continue nebulizer treatments. Still on oxygen as noted above. (6) Rhabdomyolysis: Qualifiers: Rhabdomyolysis type: non-traumatic Qualified Code(s): M62.82 - Rhabdomyolysis Code(s): M62.82 - Rhabdomyolysis Status: Acute Assessment and Plan: Creatine kinase 1108 on admission. Down to 352 today. Will follow along with kidney function. (7) Arm edema: Code(s): R60.0 - Localized edema Status: Acute Assessment and Plan: Elevate. Will follow with treatment of other issues. (8) Hyperbilirubinemia: Code(s): E80.6 - Other disorders of bilirubin metabolism Status: Acute Assessment and Plan: Down to 2.7 on 08/16/2019. Most likely related to anemia issues. Will follow periodically. (9) UTI (urinary tract infection): Qualifiers: Hematuria presence: with hematuria Urinary tract infection type: acute cystitis Qualified Code(s): N30.01 - Acute cystitis with hematuria Code(s): N39.0 - Urinary tract infection, site not specified Status: Acute Assessment and Plan: Ruled out with urine culture negative. (10) DVT prophylaxis: Code(s): Z29.9 - Encounter for prophylactic measures, unspecified Status: Acute Assessment and Plan: SCDs. Time Spent With Patient Time with patient: 15 - 25 minutes Subjective Date/time seen: 08/17/19 13:12 Interval history: Date of Servic
[2019-08-17 14:13] LABS: Lactate Dehydrogenase 675 U/L (313-618)
[2019-08-17 14:28] LABS: Iron 51 ug/dL (49-181)
[2019-08-17 14:30] LABS: Hematocrit 23.1 % (42.0-52.0); Hemoglobin 7.6 g/dL (14.0-18.0)
[2019-08-17 14:37] LABS: Percent Iron Saturation 25 % (20-50)
[2019-08-17 15:20] LABS: Folic Acid 6.4 ng/mL (2.76->20)
[2019-08-18] VITALS (22 sets, daily range): BP systolic 108–131; BP diastolic 56–87; PULSE 80–102; RESP 16–20; TEMP 36.7–37.2; O2SAT 90–99
--- NOTE | 2019-08-18 00:09 | CONS_ITS ---
DATE OF CONSULTATION: 08/17/2019 REASON FOR CONSULTATION: Profound anemia. HISTORY OF PRESENTING ILLNESS: This is a 34-year-old obese male, who has been dealing with upper respiratory infection symptoms for last couple of weeks duration, came into the hospital with worsening of his symptoms including shortness of breath, cough along with intermittent nausea, vomiting, and sinus congestion. He has been having fever, chills, and night sweats. He has lost some weight recently, but not sure how much. He was treated outpatient by his primary care doctor with 10-day course of Augmentin and prednisone with some initial improvement and worsening of the symptoms. He denies any new lumps, bumps, and lymphadenopathy. He denies any bleeding and bruising. REVIEW OF SYSTEMS: Twelve-point review of system was reviewed and as per HPI, otherwise negative. PAST MEDICAL HISTORY: None. PAST SURGICAL HISTORY: Vasectomy. SOCIAL HISTORY: The patient quit smoking 5 years ago. He lives at home with his 2 sons. 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 Denies any alcohol and substance use. HOME MEDICATIONS: Reviewed. ALLERGIES: REVIEWED. FAMILY HISTORY: Noncontributory. PHYSICAL EXAMINATION: GENERAL: This patient is an obese, well-developed, well-nourished, tired looking male, slight respiratory distress with profound cough, alert and oriented. VITAL SIGNS: Per nursing note. HEENT: Normocephalic, atraumatic. Clear oropharynx. LUNGS: Bilateral wheezes and rhonchi. CARDIOVASCULAR: Regular rate and rhythm. No murmurs. ABDOMEN: Soft, nontender, nondistended. Bowel sounds are positive. No hepatosplenomegaly. EXTREMITIES: No edema. NEUROLOGIC: Grossly intact. LABORATORY DATA: Hemoglobin 7.6 and previously was 6.4 prior to the transfusion. WBC 11.9, MCV 87, platelets 213,000, neutrophils 77%, 1.5% immature granulocytes, lymphocytes 11.5%, nucleated RBCs present. Creatinine 2.1, calcium 7.6. Iron 51, iron saturation 25%, ferritin 779. C-reactive protein elevated at 8.4. LDH 675. Vitamin B12 of 590. ASSESSMENT AND PLAN: Normocytic, profound anemia with elevated WBC count and normal platelet count. The patient is a 34-year-old obese male, who came into the hospital with almost 2 to 3 weeks duration of upper respiratory infection with sinus congestion, rhinorrhea, cough, shortness of breath, tiredness, fatigue, malaise, and some weight loss. He denies any new lumps, bumps, and lymphadenopathy. I have reviewed his labs with the patient. Differential diagnosis includes infection and sepsis with myelosuppression with possibility of myeloproliferative disorder with presence of left-shifted bone marrow, nucleated RBC, and profound anemia. Other differential diagnosis includes hemolytic anemia. Hemolytic uremic syndrome is unlikely as platelets are normal and there are no schistocytes present. Thrombotic thrombocytopenic purpura is also unlikely as platelets are normal and no schistocytes. Disseminated intravascular coagulation and sepsis are likely, but PT and PTT are normal. Iron studies and B12 came back normal. I will proceed with bone marrow aspiration biopsy to rule out underlying bone marrow pathology. I will also order haptoglobin and Scott test. Blood cultures are pending. The patient will continue broad-spectrum antibiotic coverage. We will follow along with you. OFELIA MARS M.D. STUNT PERFORMER STUNT PERFORMER D I MT: [facility]
[2019-08-18] MEDS: ALBUTEROL SULFATE NEB 2.5 MG/0.5 ML INH 5 MG INHALATION ×4 (01:54→22:01)
[2019-08-18] MEDS: IPRATROPIUM BR 0.02% INH SOLN 0.5 MG/2.5 ML VIAL INHALATION ×4 (01:54→22:01)
[2019-08-18 03:06] LABS: Haptoglobin 240 mg/dL (43-212)
[2019-08-18 04:07] LABS: Anti Streptolysin O Screen <50 IU/mL (<200)
[2019-08-18 06:42] LABS: Blood Urea Nitrogen 23 mg/dL (9-20); Carbon Dioxide 31 mmol/L (22-30); Chloride 101 mmol/L (98-107); Estimated Glomerular Filt Rate 40; Glucose 92 mg/dL (75-110); Magnesium 1.8 mg/dL (1.6-2.3); Potassium 3.3 mmol/L (3.4-5.0); Sodium 138 mmol/L (137-145)
[2019-08-18 06:45] LABS: Hematocrit 23.5 % (42.0-52.0); Hemoglobin 7.4 g/dL (14.0-18.0); Mean Corpuscular HGB Conc 31.5 g/dl (32-36); Mean Corpuscular Hemoglobin 27.8 pg (26-34); Mean Corpuscular Volume 88.3 fl (80-100); Mean Platelet Volume 10.4 fl (7.4-10.4); Platelet Count Result 228 k/mm3 (150-375); Red Blood Count 2.66 M/mm3 (4.6-6.20); Red Cell Distribution Width 17.2 % (11.5-14.5); White Blood Count 9.4 K/mm3 (4.5-10.0)
[2019-08-18 06:46] LABS: Alanine Aminotransferase 37 U/L (4-50); Albumin Level 2.9 g/dL (3.5-5.1); Alkaline Phosphatase 55 U/L (38-126); Aspartate Amino Transferase 45 U/L (17-59); Bilirubin,Total 1.2 mg/dL (0.2-1.3); Creatine Kinase 285 U/L (55-170)
[2019-08-18] MEDS: LACTATED RINGERS 1,000 ML 125 ML IV CONT (07:45)
[2019-08-18] MEDS: PANTOPRAZOLE SODIUM IV 40 MG VIAL IV PUSH (08:12)
[2019-08-18 08:21] LABS: Basophils Absolute Auto 0.1 K/mm3 (0.0-0.1); Basophils Percent Auto 0.6 % (0.2-1.2); Eosinophils Absolute Auto 0.2 K/mm3 (0-0.3); Eosinophils Percent Auto 1.6 % (0-4.4); Immature Granulocyte Absolute 0.11 K/mm3 (0.00-0.031); Immature Granulocyte Percent A 1.1 % (0-0.5); Lymphocytes Absolute Auto 1.23 K/mm3 (0.9-3.2); Lymphocytes Percent Auto 12.9 % (18.3-44.2); Monocytes Absolute Auto 0.5 K/mm3 (0.1-0.6); Monocytes Percent Auto 5.4 % (2.6-8.5); Neutrophils Absolute Auto 7.5 K/mm3 (1.3-6.7); Neutrophils Percent Auto 78.4 % (45.5-73.1)
[2019-08-18 12:02] LABS: Complement Total CH50 30 U/mL (31-60)
[2019-08-18] MEDS: POTASSIUM CHLORIDE 20 MEQ TABLET 40 MEQ PO (12:32)
--- NOTE | 2019-08-18 14:56 | PM.IMPN ---
Progress Note: A&P Assessment and Plan (1) Sepsis: Qualifiers: Acute renal failure type: with acute tubular necrosis Sepsis acute organ dysfunction status: with acute organ dysfunction Sepsis type: sepsis due to unspecified organism Severe sepsis acute organ dysfunction type: acute renal failure Severe sepsis shock status: without septic shock Qualified Code(s): A41.9 - Sepsis, unspecified organism; R65.20 - Severe sepsis without septic shock; N17.0 - Acute kidney failure with tubular necrosis Code(s): A41.9 - Sepsis, unspecified organism Status: Acute Assessment and Plan: Criteria met on admission. Urine culture is negative. Blood cultures remain negative to date. Group a strep culture negative. WBC is normal. Will continue IV ceftriaxone and azithromycin. Will continue to monitor. Slowly improving. (2) Acute renal failure: Qualifiers: Acute renal failure type: unspecified Qualified Code(s): N17.9 - Acute kidney failure, unspecified Code(s): N17.9 - Acute kidney failure, unspecified Status: Acute Assessment and Plan: Appreciate help from Nephrology. Suspicion is this is multifactorial. Creatinine better today at 1.90. Additional workup in process. Will continue to follow. (3) Anemia: Qualifiers: Anemia type: unspecified type Qualified Code(s): D64.9 - Anemia, unspecified Code(s): D64.9 - Anemia, unspecified Status: Acute Assessment and Plan: Workup in progress. Appreciate help from Hematology. Received transfusion of 1 unit PRBC on 08/16/2019 and 08/17/2019. Hemoglobin better at 7.4 this morning. Bone marrow biopsy completed earlier today with results pending. Will continue to monitor H&H. Transfuse as needed. (4) Hypokalemia: Code(s): E87.6 - Hypokalemia Status: Acute Assessment and Plan: Potassium 3.3 today with oral replacement given today. Will continue to monitor and replace as needed. (5) Acute respiratory failure with hypoxia: Code(s): J96.01 - Acute respiratory failure with hypoxia Status: Acute Assessment and Plan: Result of pneumonia and possibly acute renal failure. Requiring 4 L of oxygen today. Continue respiratory treatments and IV antibiotics as noted below. Decrease IV fluids. (6) Pneumonia: Qualifiers: Laterality: bilateral Lung location: lower lobe of lung Pneumonia type: due to unspecified organism Qualified Code(s): J18.9 - Pneumonia, unspecified organism Code(s): J18.9 - Pneumonia, unspecified organism Status: Acute Assessment and Plan: Chest x-ray negative but CT abdomen and pelvis with extensive micronodular densities scattered throughout the lower lung zones bilaterally. Remains on IV antibiotics as noted. Continue nebulizer treatments. Continue oxygen as needed but will wean as tolerated. (7) Rhabdomyolysis: Qualifiers: Rhabdomyolysis type: non-traumatic Qualified Code(s): M62.82 - Rhabdomyolysis Code(s): M62.82 - Rhabdomyolysis Status: Acute Assessment and Plan: Creatine kinase 1108 on admission. Creatine kinase down to 285 today. Will continue to follow along with kidney function. (8) Arm edema: Code(s): R60.0 - Localized edema Status: Acute Assessment and Plan: Elevate. Will follow with treatment of other issues. (9) Hyperbilirubinemia: Code(s): E80.6 - Other disorders of bilirubin metabolism Status: Acute Assessment and Plan: Now resolved with bilirubin 1.2 today. Related to anemia issues. Will follow periodically. (10) UTI (urinary tract infection): Qualifiers: Hematuria presence: with hematuria Urinary tract infection type: acute cystitis Qualified Code(s): N30.01 - Acute cystitis with hematuria Code(s): N39.0 - Urinary tract infection, site not specified Status: Acute Assessment and [place]
--- NOTE | 2019-08-18 17:43 | P.PNNP_ITS ---
Progress Note: A&P Assessment and Plan (1) Acute renal failure: Qualifiers: Acute renal failure type: unspecified Qualified Code(s): N17.9 - Acute kidney failure, unspecified Code(s): N17.9 - Acute kidney failure, unspecified Status: Acute Assessment and Plan: * suspect multifactorial etiology: - dehydration/volume depletion (supported by pre-renal urine electrolytes) - infection/sepsis(?) - rhabdomyolysis - anemia - possible autoimmune disorder/vasculitis(?) - blood and protein in urine and history of hemoptysis... * creatinine slowly improving * no critical electrolytes and making urine * follow-up on pending serological testing (2) Sepsis: Qualifiers: Acute renal failure type: with acute tubular necrosis Sepsis acute organ dysfunction status: with acute organ dysfunction Sepsis type: sepsis due to unspecified organism Severe sepsis acute organ dysfunction type: acute renal failure Severe sepsis shock status: without septic shock Qualified Code(s): A41.9 - Sepsis, unspecified organism; R65.20 - Severe sepsis without septic shock; N17.0 - Acute kidney failure with tubular necrosis Code(s): A41.9 - Sepsis, unspecified organism Status: Acute Assessment and Plan: * evidenced by tachycarida, tachypnea, elevated WBC and fever on admission * follow-up on culture data -- all negative to date * on antibiotics * follow hemodynamics (3) UTI (urinary tract infection): Qualifiers: Hematuria presence: with hematuria Urinary tract infection type: acute cystitis Qualified Code(s): N30.01 - Acute cystitis with hematuria Code(s): N39.0 - Urinary tract infection, site not specified Status: Acute Assessment and Plan: * UA suggestive of this * however, urine culture negative * on antibiotics (4) Pneumonia: Qualifiers: Laterality: bilateral Lung location: lower lobe of lung Pneumonia type: due to unspecified organism Qualified Code(s): J18.9 - Pneumonia, unspecified organism Code(s): J18.9 - Pneumonia, unspecified organism Status: Acute Assessment and Plan: * suspect viral in etiology * however, cannot discount atypical organisms * on antibiotics * follow-up on pending titers (all negative so far...) (5) Anemia: Qualifiers: Anemia type: unspecified type Qualified Code(s): D64.9 - Anemia, unspecified Code(s): D64.9 - Anemia, unspecified Status: Acute Assessment and Plan: * quite significant * no improvement s/p 2 units of PRBCs day before yesterday * hemolysis?? -- Hem/Onc following * s/p bone marrow biopsy * follow trend of H/H (6) Rhabdomyolysis: Qualifiers: Rhabdomyolysis type: non-traumatic Qualified Code(s): M62.82 - Rhabdomyolysis Code(s): M62.82 - Rhabdomyolysis Status: Acute Assessment and Plan: * CPK is improving * follow trend Will continue to follow. Subjective Date/time seen: 08/18/19 17:43 S/P bone marrow biopsy; sleepy and fatigued at the time of my visit; myalgias seem to be a bit better; appetite and oral intake seems to be improving at this time. Exam Narrative: Exam Narrative: General: WD/WN male in NAD Heart: normal S1 and S2; no rub Lungs: decreased at bases with a few crackles noted Abdomen: soft, nontender, nondistended, positive bowel sounds Extremities: no cyanosis or clubbing; trace edema Skin: warm and intact O
--- NOTE | 2019-08-18 17:43 | PM.PNNEP ---
Progress Note: A&P Assessment and Plan (1) Acute renal failure: Qualifiers: Acute renal failure type: unspecified Qualified Code(s): N17.9 - Acute kidney failure, unspecified Code(s): N17.9 - Acute kidney failure, unspecified Status: Acute Assessment and Plan: suspect multifactorial etiology: - dehydration/volume depletion (supported by pre-renal urine electrolytes) - infection/sepsis(?) - rhabdomyolysis - anemia - possible autoimmune disorder/vasculitis(?) - blood and protein in urine and history of hemoptysis... creatinine slowly improving no critical electrolytes and making urine follow-up on pending serological testing (2) Sepsis: Qualifiers: Acute renal failure type: with acute tubular necrosis Sepsis acute organ dysfunction status: with acute organ dysfunction Sepsis type: sepsis due to unspecified organism Severe sepsis acute organ dysfunction type: acute renal failure Severe sepsis shock status: without septic shock Qualified Code(s): A41.9 - Sepsis, unspecified organism; R65.20 - Severe sepsis without septic shock; N17.0 - Acute kidney failure with tubular necrosis Code(s): A41.9 - Sepsis, unspecified organism Status: Acute Assessment and Plan: evidenced by tachycarida, tachypnea, elevated WBC and fever on admission follow-up on culture data -- all negative to date on antibiotics follow hemodynamics (3) UTI (urinary tract infection): Qualifiers: Hematuria presence: with hematuria Urinary tract infection type: acute cystitis Qualified Code(s): N30.01 - Acute cystitis with hematuria Code(s): N39.0 - Urinary tract infection, site not specified Status: Acute Assessment and Plan: UA suggestive of this however, urine culture negative on antibiotics (4) Pneumonia: Qualifiers: Laterality: bilateral Lung location: lower lobe of lung Pneumonia type: due to unspecified organism Qualified Code(s): J18.9 - Pneumonia, unspecified organism Code(s): J18.9 - Pneumonia, unspecified organism Status: Acute Assessment and Plan: suspect viral in etiology however, cannot discount atypical organisms on antibiotics follow-up on pending titers (all negative so far...) (5) Anemia: Qualifiers: Anemia type: unspecified type Qualified Code(s): D64.9 - Anemia, unspecified Code(s): D64.9 - Anemia, unspecified Status: Acute Assessment and Plan: quite significant no improvement s/p 2 units of PRBCs day before yesterday hemolysis?? -- Hem/Onc following s/p bone marrow biopsy follow trend of H/H (6) Rhabdomyolysis: Qualifiers: Rhabdomyolysis type: non-traumatic Qualified Code(s): M62.82 - Rhabdomyolysis Code(s): M62.82 - Rhabdomyolysis Status: Acute Assessment and Plan: CPK is improving follow trend Will continue to follow. Subjective Date/time seen: 08/18/19 17:43 S/P bone marrow biopsy; sleepy and fatigued at the time of my visit; myalgias seem to be a bit better; appetite and oral intake seems to be improving at this time. Exam Narrative: Exam Narrative: General: WD/WN male in NAD Heart: normal S1 and S2; no rub Lungs: decreased at bases with a few crackles noted Abdomen: soft, nontender, nondistended, positive bowel sounds Extremities: no cyanosis or clubbing; trace edema Skin: warm and intact Objective Data Vital Signs Vital Signs: Vital Signs Temp Pulse Resp BP Pulse Ox 08/18/19 16:00 92 08/18/19 15:36 90 08/18/19 15:29 88 20 08/18/19 12:00 102 H 08/18/19 11:59 88 18 126/81 92 08/18/19 11:45 98 16 126/87 94 08/18/19 11:30 36.8 C 84 16 123/80 94 08/18/19 08:32 86 20 08/18/19 08:26 90 08/18/19 08:25 89 20 08/18/19 08:00 84 08/18/19 06:00 37.2 C 88 18 112/56 L 97 08/18/19 04:00
--- NOTE | 2019-08-18 18:41 | WPDONCPN ---
Progress Note: A/P - Additional Plan Normocytic anemia. Hemoglobin noted. Scott test came back positive. Haptoglobin is elevated. LDH was also elevated. Patient is not status post bone marrow biopsy to rule out underlying myeloproliferative disorder. Pathology is pending. 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 Acute renal insufficiency. Creatinine improved. Bilateral pneumonia. Patient is on antibiotic treatment. - Time Spent With Patient Total time spent is greater than 50% in coordination of care (as documented) at patient's floor/unit and/or counseling patient: 15 - 25 minutes Subjective Interval history: Anemia Renal insufficiency Bilateral pneumonia Rhabdomyolysis Review of Systems - Review of Systems Patient looks comfortable. No bleeding and bruising. No fevers and chills. No other new complaints. - Neurologic Reports weakness, Denies confusion, Denies headache(s) Exam Vital signs: Temp Pulse Resp BP Pulse Ox 36.8 C 92 20 126/81 92 08/18/19 11:30 08/18/19 16:00 08/18/19 15:36 08/18/19 11:59 08/18/19 11:59 Lungs are clear to auscultation bilaterally Cardiovascular regular rate rhythm no murmurs Abdomen soft nontender nondistended Extremities no edema PN: Objective Data - Labs CBC & Chem 7: 08/18/19 05:35 08/18/19 05:35 Labs: Laboratory Results - last 24 hr 08/15/19 08/15/19 08/15/19 09:32 09:32 11:01 WBC RBC Hgb Hct MCV MCH MCHC RDW Plt Count MPV Immature Gran % (Auto) Neut % (Auto) Lymph % (Auto) Wilkin % (Auto) Eos % (Auto) Baso % (Auto) Lymph # (Auto) Wilkin # (Auto) Eos # (Auto) Baso # (Auto) Abs Immat Gran (auto) Absolute Neuts (auto) Absolute Nucleated RBC Nucleated RBC % Haptoglobin 240 H Sodium Potassium Chloride Carbon Dioxide BUN Creatinine Estim Creat Clear Calc Estimated GFR Glucose Calcium Magnesium Total Bilirubin Direct Bilirubin AST ALT Alkaline Phosphatase Total Creatine Kinase Total Protein Albumin Urine Eosinophils see below Tot Complement (CH50) Chlamydia Culture Anti-Streptolysin Scrn <50 08/15/19 08/16/19 08/18/19 13:40 08:23 05:35 WBC 9.4 RBC 2.66 L Hgb 7.4 L Hct 23.5 L MCV 88.3 MCH 27.8 MCHC 31.5 L RDW 17.2 H Plt Count 228 MPV 10.4 Immature Gran % (Auto) 1.1 H Neut % (Auto) 78.4 H Lymph % (Auto) 12.9 L Wilkin % (Auto) 5.4 Eos % (Auto) 1.6 Baso % (Auto) 0.6 Lymph # (Auto) 1.23 Wilkin # (Auto) 0.5 Eos # (Auto) 0.2 Baso # (Auto) 0.1 Abs Immat Gran (auto) 0.11 H Absolute Neuts (auto) 7.5 H Absolute Nucleated RBC 0.0 Nucleated RBC % 0.0 Haptoglobin Sodium Potassium Chloride Carbon Dioxide BUN Creatinine Estim Creat Clear Calc Estimated GFR Glucose Calcium Magnesium Total Bilirubin Direct Bilirubin AST ALT Alkaline Phosphatase Total Creatine Kinase Total Protein Albumin Urine Eosinophils Tot Complement (CH50) 30 L Chlamydia Culture TNP Anti-Streptolysin Scrn 08/18/19 08/18/19 05:35 05:35 WBC RBC Hgb Hct MCV MCH MCHC RDW Plt Count MPV Immature Gran % (Auto) Neut % (Auto) Lymph % (Auto) Wilkin % (Auto) Eos % (Auto) Baso % (Auto) Lymph # (Auto) Wilkin # (Auto) Eos # (Auto) Baso # (Auto) Abs Immat Gran (auto) Absolute Neuts (auto) Absolute Nucleated RBC Nucleated RBC % Haptoglobin Sodium 138 Potassium 3.3 L Chloride 101 Carbon Dioxide 31 H BUN 23 H D Creatinine 1.90 H Estim Creat Clear Calc Not Reportable Estimated GFR 40 L Glucose 92 Calcium 8.0 L Magnesium 1.8 Total Bilirubin 1.2 Direct Bilirubin 0.0 AST 45 ALT 37 Alkaline Phosphatase 55 Total
[2019-08-18] MEDS: LACTATED RINGERS 1,000 ML 75 ML IV CONT (21:55)
[2019-08-18] MEDS: DORNASE ALFA INH SOLN 1 MG/ML 2.5 ML AMP 2.5 MG INHALATION (22:01)
[2019-08-18 22:49] LABS: ANCA Screen Negative (Negative)
[2019-08-19] VITALS (18 sets, daily range): BP systolic 105–141; BP diastolic 41–86; PULSE 72–103; RESP 16–22; TEMP 36.7–37.1; O2SAT 91–100
[2019-08-19 00:35] LABS: Albumin 2.5 g/dL (3.8-4.8); Alpha 1 Globulin 0.5 g/dL (0.2-0.3); Alpha 2 Globulin 0.6 g/dL (0.5-0.9); Beta 1 Globulin 0.3 g/dL (0.4-0.6); Gamma Globulin 1.2 g/dL (0.8-1.7); Protein, Total 5.5 g/dL (6.1-8.1)
[2019-08-19] MEDS: IPRATROPIUM BR 0.02% INH SOLN 0.5 MG/2.5 ML VIAL INHALATION ×4 (02:52→20:31)
[2019-08-19] MEDS: ALBUTEROL SULFATE NEB 2.5 MG/0.5 ML INH 5 MG INHALATION ×4 (02:52→20:30)
[2019-08-19 06:31] LABS: Alanine Aminotransferase 40 U/L (4-50); Albumin Level 2.9 g/dL (3.5-5.1); Alkaline Phosphatase 58 U/L (38-126); Aspartate Amino Transferase 45 U/L (17-59); Blood Urea Nitrogen 18 mg/dL (9-20); Carbon Dioxide 30 mmol/L (22-30); Chloride 100 mmol/L (98-107); Creatine Kinase 322 U/L (55-170); Estimated Glomerular Filt Rate 46; Glucose 92 mg/dL (75-110); Magnesium 1.7 mg/dL (1.6-2.3); Potassium 3.4 mmol/L (3.4-5.0); Sodium 136 mmol/L (137-145)
[2019-08-19 07:27] LABS: Hematocrit 22.6 % (42.0-52.0); Hemoglobin 7.1 g/dL (14.0-18.0); Mean Corpuscular HGB Conc 31.4 g/dl (32-36); Mean Corpuscular Hemoglobin 28.1 pg (26-34); Mean Corpuscular Volume 89.3 fl (80-100); Mean Platelet Volume 10.3 fl (7.4-10.4); Platelet Count Result 221 k/mm3 (150-375); Red Blood Count 2.53 M/mm3 (4.6-6.20); Red Cell Distribution Width 17.3 % (11.5-14.5); White Blood Count 8.1 K/mm3 (4.5-10.0)
[2019-08-19] MEDS: DORNASE ALFA INH SOLN 1 MG/ML 2.5 ML AMP 2.5 MG INHALATION ×2 (07:44→20:31)
[2019-08-19] MEDS: PANTOPRAZOLE SODIUM IV 40 MG VIAL IV PUSH (08:37)
[2019-08-19 09:52] LABS: Anti Glomerular Basement Memb <1.0 AI (<1.0)
--- NOTE | 2019-08-19 11:15 | PM.IMPN ---
Progress Note: A&P Assessment and Plan (1) Sepsis: Qualifiers: Acute renal failure type: with acute tubular necrosis Sepsis acute organ dysfunction status: with acute organ dysfunction Sepsis type: sepsis due to unspecified organism Severe sepsis acute organ dysfunction type: acute renal failure Severe sepsis shock status: without septic shock Qualified Code(s): A41.9 - Sepsis, unspecified organism; R65.20 - Severe sepsis without septic shock; N17.0 - Acute kidney failure with tubular necrosis Code(s): A41.9 - Sepsis, unspecified organism Status: Acute Assessment and Plan: Criteria met on admission. Urine culture is negative. Blood cultures remain negative to date. Group A strep culture negative. WBC remains normal. Will continue IV ceftriaxone and azithromycin. Will continue to monitor. Continues to improve. (2) Acute renal failure: Qualifiers: Acute renal failure type: unspecified Qualified Code(s): N17.9 - Acute kidney failure, unspecified Code(s): N17.9 - Acute kidney failure, unspecified Status: Acute Assessment and Plan: Appreciate help from Nephrology. Suspicion is this is multifactorial. Creatinine continues to improve with level of 1.70 today. Additional workup in process. Remains on IV fluids. Will continue to follow. (3) Anemia: Qualifiers: Anemia type: unspecified type Qualified Code(s): D64.9 - Anemia, unspecified Code(s): D64.9 - Anemia, unspecified Status: Acute Assessment and Plan: Workup in progress. Appreciate help from Hematology. Received transfusion of 1 unit PRBC on 08/16/2019 and 08/17/2019. Bone marrow biopsy done yesterday with results pending. Patient with noted elevated haptoglobin, positive Scott test and elevated LDH. 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 WBC decreased to 7.1 today. Started on IV steroids per hematology. Will continue to monitor H&H. Transfuse as needed. (4) Hypokalemia: Code(s): E87.6 - Hypokalemia Status: Acute Assessment and Plan: Potassium 3.4 today. Will give additional oral replacement today. Will continue to monitor and replace as needed. (5) Acute respiratory failure with hypoxia: Code(s): J96.01 - Acute respiratory failure with hypoxia Status: Acute Assessment and Plan: Result of pneumonia and possibly acute renal failure. Back on 2 L of oxygen today. Will continue respiratory treatments and IV antibiotics as noted above. Continue Pulmozyme and Mucinex. (6) Pneumonia: Qualifiers: Laterality: bilateral Lung location: lower lobe of lung Pneumonia type: due to unspecified organism Qualified Code(s): J18.9 - Pneumonia, unspecified organism Code(s): J18.9 - Pneumonia, unspecified organism Status: Acute Assessment and Plan: Chest x-ray negative but CT abdomen and pelvis with extensive micronodular densities scattered throughout the lower lung zones bilaterally. Remains on IV antibiotics as noted. Bordetella testing negative. Will continue nebulizer treatments, Pulmozyme and Mucinex. Will add Phenergan with codeine to help with cough. Continue oxygen currently at 2 L but will wean as tolerated. Add Flonase and nasal saline for nasal congestion. (7) Rhabdomyolysis: Qualifiers: Rhabdomyolysis type: non-traumatic Qualified Code(s): M62.82 - Rhabdomyolysis Code(s): M62.82 - Rhabdomyolysis Status: Acute Assessment and Plan: Creatine kinase 1108 on admission. Creatine kinase stable at 322 today. Will follow periodically. (8) Arm edema: Code(s): R60.0 - Localized edema Status: Acute Assessment and Plan: Elevate. Will follow with treatment of other issues. (9) Hyperbilirubinemia: Code(s): E80.6 - Other disorders of bilirubin metabolism Status: Acute Assessment and Plan: Resolved with bilirubin 1.0 today. Related to an
[2019-08-19] MEDS: LACTATED RINGERS 1,000 ML 50 ML IV CONT (12:39)
--- NOTE | 2019-08-19 12:58 | WPDONCPN ---
Progress Note: A/P - Additional Plan Normocytic anemia. Scott test came back positive. LDH was also elevated but haptoglobin was elevated as well. Since hemoglobin is declining. I will start him on Solu-Medrol 80 mg q.8 hours for hemolytic anemia. I will start him on folic acid as well. Bone marrow biopsy was done and pathology is pending. Acute renal insufficiency. Creatinine improving. Bilateral pneumonia. Patient is on antibiotics. Denies any fevers and chills. - Time Spent With Patient Total time spent is greater than 50% in coordination of care (as documented) at patient's floor/unit and/or counseling patient: 15 - 25 minutes Subjective Interval history: Anemia Renal insufficiency Bilateral pneumonia Rhabdomyolysis Review of Systems - Review of Systems Patient complain of cough with clear sputum. He remains quite tired and weak. He denies any bleeding and bruising. Denies any fevers and chills. No other new complaints. - Neurologic Reports weakness, Denies confusion, Denies headache(s) Exam Vital signs: Lungs are clear to auscultation bilaterally Cardiovascular regular rate rhythm no murmurs Abdomen soft nontender nondistended Extremities no edema PN: Objective Data - Labs CBC & Chem 7: 08/19/19 05:59 08/19/19 05:59 Labs: Laboratory Results - last 24 hr 08/15/19 08/16/19 08/16/19 11:01 08:23 08:23 WBC RBC Hgb Hct MCV MCH MCHC RDW Plt Count MPV Sodium Potassium Chloride Carbon Dioxide BUN Creatinine Estim Creat Clear Calc Estimated GFR Glucose Calcium Magnesium Total Bilirubin AST ALT Alkaline Phosphatase Total Creatine Kinase Total Protein 5.5 L Albumin 2.5 L Dwgil-8-Xjuzhpiaf 0.5 H Dpkfa-3-Tkestdooa 0.6 Uims-3-Fhfmvtjr 0.3 L Qyrb-9-Qdojqhmq 0.3 Gamma Globulins 1.2 Abnorm Protein Band 1 see below Abnorm Protein Band 3 Not Reportable PEP Interpretation see below A Serum Immunofixation see below ANCA Screen Glomerular Base Memb Ab C. pneumoniae DNA (PCR) see below 08/16/19 08/19/19 08/19/19 08:23 05:59 05:59 WBC 8.1 RBC 2.53 L Hgb 7.1 L Hct 22.6 L MCV 89.3 MCH 28.1 MCHC 31.4 L RDW 17.3 H Plt Count 221 MPV 10.3 Sodium 136 L Potassium 3.4 Chloride 100 Carbon Dioxide 30 BUN 18 Creatinine 1.70 H Estim Creat Clear Calc Not Reportable Estimated GFR 46 L Glucose 92 Calcium 8.0 L Magnesium 1.7 Total Bilirubin 1.0 AST 45 ALT 40 Alkaline Phosphatase 58 Total Creatine Kinase 322 H Total Protein 6.0 L Albumin 2.9 L Bzkbx-9-Xkauyheae Lgjza-8-Mdihpupmc Vwtr-4-Blyvewcg Aaes-4-Ryfhqrmt Gamma Globulins Abnorm Protein Band 1 Abnorm Protein Band 3 PEP Interpretation Serum Immunofixation ANCA Screen Negative Glomerular Base Memb Ab <1.0 C. pneumoniae DNA (PCR)
[2019-08-19 13:04] LABS: Creatinine, Random Urine 87 mg/dL (20-320); Total Protein/Creatinine Ratio 379 mg/g creat (22-128)
[2019-08-19] MEDS: methylPREDNISolone SOD SUCC 125 MG VIAL 80 MG IV PUSH ×2 (13:52→21:40)
[2019-08-19] MEDS: FLUTICASONE PROPIONATE 0.05% NA SPR 16 GM BTL (*BKC) 1 SPRAY NASAL ×2 (13:53→21:40)
--- NOTE | 2019-08-19 15:56 | PM.PNNEP ---
Progress Note: A&P Assessment and Plan (1) Acute renal failure: Qualifiers: Acute renal failure type: unspecified Qualified Code(s): N17.9 - Acute kidney failure, unspecified Code(s): N17.9 - Acute kidney failure, unspecified Status: Acute Assessment and Plan: suspect multifactorial etiology: - dehydration/volume depletion (supported by pre-renal urine electrolytes) - infection/sepsis - rhabdomyolysis - anemia - combination of all of the above leading to ATN - possible autoimmune disorder/vasculitis(?) -- blood and protein in urine and history of hemoptysis -- HOWEVER, evaluation negative to date (low complements and negative ANCA and antiGBM-Ab; OLGA LIDIA pending) creatinine slowly improving no critical electrolytes and making urine (2) Sepsis: Qualifiers: Acute renal failure type: with acute tubular necrosis Sepsis acute organ dysfunction status: with acute organ dysfunction Sepsis type: sepsis due to unspecified organism Severe sepsis acute organ dysfunction type: acute renal failure Severe sepsis shock status: without septic shock Qualified Code(s): A41.9 - Sepsis, unspecified organism; R65.20 - Severe sepsis without septic shock; N17.0 - Acute kidney failure with tubular necrosis Code(s): A41.9 - Sepsis, unspecified organism Status: Acute Assessment and Plan: evidenced by tachycarida, tachypnea, elevated WBC and fever on admission all culture negative to date follow hemodynamics (3) Pneumonia: Qualifiers: Laterality: bilateral Lung location: lower lobe of lung Pneumonia type: due to unspecified organism Qualified Code(s): J18.9 - Pneumonia, unspecified organism Code(s): J18.9 - Pneumonia, unspecified organism Status: Acute Assessment and Plan: suspect viral in etiology however, cannot discount atypical organisms on antibiotics follow-up on pending titers (all negative so far...) (4) Anemia: Qualifiers: Anemia type: unspecified type Qualified Code(s): D64.9 - Anemia, unspecified Code(s): D64.9 - Anemia, unspecified Status: Acute Assessment and Plan: quite significant no improvement s/p 2 units of PRBCs (on 08/17/19) possible hemolysis?? -- Hem/Onc following - Scott test positive - LDH elevated but so was haptoglobin - given declining H/H, started on steroids on lety concern for hemolytic anemia s/p bone marrow biopsy - pathology pending follow trend of H/H (5) Rhabdomyolysis: Qualifiers: Rhabdomyolysis type: non-traumatic Qualified Code(s): M62.82 - Rhabdomyolysis Code(s): M62.82 - Rhabdomyolysis Status: Acute Assessment and Plan: CPK is improving follow trend Will continue to follow. Subjective Date/time seen: 08/19/19 15:56 Chest and abdominal discomfort with coughing but tolerable; still with significant fatigue; H/H still somewhat low; continues to make urine with slow and steady improvement in creatinine. Exam Narrative: Exam Narrative: General: WD/WN male in NAD Heart: normal S1 and S2; no rub Lungs: decreased at bases with a few crackles noted Abdomen: soft, nontender, nondistended, positive bowel sounds Extremities: no cyanosis or clubbing; trace edema Skin: warm and intact Objective Data Vital Signs Vital Signs: Vital Signs Temp Pulse Resp BP Pulse Ox 08/19/19 14:00 90 18 08/19/19 13:48 87 20 08/19/19 12:00 79 08/19/19 08:20 92 08/19/19 08:01 85 20 08/19/19 08:00 81 08/19/19 07:45 82 20 94 08/19/19 06:00 37.1 C 103 H 22 H 141/86 H 100 08/19/19 04:00 88 08/19/19 03:01 93 20 08/19/19 02:52 89 20 08/19/19 00:00 93 08/18/19 22:14 84 20 08/18/19 22:01 87 18 94 08/18/19 22:00 36.9 C 83 20 131/77 99 08/18/19 20:00 88 08/18/19 16:00 92
[2019-08-19] MEDS: POTASSIUM CHLORIDE 20 MEQ TABLET 40 MEQ PO (17:19)
[2019-08-20] VITALS (16 sets, daily range): BP systolic 106–127; BP diastolic 54–69; PULSE 79–103; RESP 16–20; TEMP 36.5–36.7; O2SAT 90–96
[2019-08-20 00:43] LABS: Legionella pneumophila Ag Ur Not Detected (Not Detected)
[2019-08-20] MEDS: IPRATROPIUM BR 0.02% INH SOLN 0.5 MG/2.5 ML VIAL INHALATION ×3 (01:40→20:04)
[2019-08-20] MEDS: ALBUTEROL SULFATE NEB 2.5 MG/0.5 ML INH 5 MG INHALATION ×3 (01:40→20:04)
[2019-08-20] MEDS: methylPREDNISolone SOD SUCC 125 MG VIAL 80 MG IV PUSH ×3 (06:06→22:41)
[2019-08-20 06:30] LABS: Blood Urea Nitrogen 20 mg/dL (9-20); Calcium 7.9 mg/dL (8.4-10.2); Carbon Dioxide 30 mmol/L (22-30); Chloride 101 mmol/L (98-107); Estimated Glomerular Filt Rate 53; Glucose 136 mg/dL (75-110); Magnesium 1.7 mg/dL (1.6-2.3); Potassium 4.3 mmol/L (3.4-5.0); Sodium 136 mmol/L (137-145)
[2019-08-20 06:43] LABS: Hematocrit 22.2 % (42.0-52.0); Mean Corpuscular HGB Conc 31.5 g/dl (32-36); Mean Corpuscular Hemoglobin 27.8 pg (26-34); Mean Corpuscular Volume 88.1 fl (80-100); Mean Platelet Volume 10.5 fl (7.4-10.4); Platelet Count Result 242 k/mm3 (150-375); Red Blood Count 2.52 M/mm3 (4.6-6.20); Red Cell Distribution Width 16.9 % (11.5-14.5); White Blood Count 8.2 K/mm3 (4.5-10.0)
[2019-08-20] MEDS: DORNASE ALFA INH SOLN 1 MG/ML 2.5 ML AMP 2.5 MG INHALATION ×2 (08:17→20:05)
[2019-08-20] MEDS: FLUTICASONE PROPIONATE 0.05% NA SPR 16 GM BTL (*BKC) 1 SPRAY NASAL ×2 (08:49→20:02)
[2019-08-20] MEDS: PANTOPRAZOLE SODIUM IV 40 MG VIAL IV PUSH (08:50)
--- NOTE | 2019-08-20 12:31 | PM.PNNEP ---
Progress Note: A&P Assessment and Plan (1) Acute renal failure: Qualifiers: Acute renal failure type: unspecified Qualified Code(s): N17.9 - Acute kidney failure, unspecified Code(s): N17.9 - Acute kidney failure, unspecified Status: Acute Assessment and Plan: suspect multifactorial etiology: - dehydration/volume depletion (supported by pre-renal urine electrolytes) - infection/sepsis - rhabdomyolysis - anemia - combination of all of the above leading to ATN - possible autoimmune disorder/vasculitis(?) -- blood and protein in urine and history of hemoptysis -- HOWEVER, evaluation negative to date (low complements and negative ANCA and antiGBM-Ab; OLGA LIDIA pending) creatinine slowly improving no critical electrolytes and making urine (2) Sepsis: Qualifiers: Sepsis type: sepsis due to unspecified organism Sepsis acute organ dysfunction status: with acute organ dysfunction Severe sepsis acute organ dysfunction type: acute renal failure Acute renal failure type: with acute tubular necrosis Severe sepsis shock status: without septic shock Qualified Code(s): A41.9 - Sepsis, unspecified organism; R65.20 - Severe sepsis without septic shock; N17.0 - Acute kidney failure with tubular necrosis Code(s): A41.9 - Sepsis, unspecified organism Status: Acute Assessment and Plan: evidenced by tachycarida, tachypnea, elevated WBC and fever on admission all culture negative to date follow hemodynamics (3) Pneumonia: Qualifiers: Laterality: bilateral Lung location: lower lobe of lung Pneumonia type: due to unspecified organism Qualified Code(s): J18.9 - Pneumonia, unspecified organism Code(s): J18.9 - Pneumonia, unspecified organism Status: Acute Assessment and Plan: suspect viral in etiology however, cannot discount atypical organisms on antibiotics follow-up on pending titers (all negative so far...) (4) Anemia: Qualifiers: Anemia type: unspecified type Qualified Code(s): D64.9 - Anemia, unspecified Code(s): D64.9 - Anemia, unspecified Status: Acute Assessment and Plan: quite significant no improvement s/p 2 units of PRBCs (on 08/17/19) possible hemolysis?? -- Hem/Onc following - Scott test positive - LDH elevated but so was haptoglobin - given declining H/H, started on steroids on the concern for hemolytic anemia s/p bone marrow biopsy - pathology pending follow trend of H/H (5) Rhabdomyolysis: Qualifiers: Rhabdomyolysis type: non-traumatic Qualified Code(s): M62.82 - Rhabdomyolysis Code(s): M62.82 - Rhabdomyolysis Status: Acute Assessment and Plan: CPK is improving follow trend Will continue to follow. Subjective Date/time seen: 08/20/19 12:31 Overall, seems to be doing reasonably well; muscle aches/fatigue seem to be stable if not improving; eating/drinking reasonably well; no acute issues or events overnight or this AM. Exam Narrative: Exam Narrative: General: WD/WN male in NAD Heart: normal S1 and S2; no rub Lungs: decreased at bases with a few crackles noted Abdomen: soft, nontender, nondistended, positive bowel sounds Extremities: no cyanosis or clubbing; trace edema Skin: no nodules Objective Data Vital Signs Vital Signs: Vital Signs Temp Pulse Resp BP Pulse Ox 08/20/19 08:33 103 H 20 08/20/19 08:19 88 20 91 08/20/19 08:00 88 08/20/19 06:00 36.6 C 86 20 127/69 90 08/20/19 04:00 79 08/20/19 01:50 86 20 08/20/19 01:40 86 20 08/20/19 00:00 80 08/19/19 22:00 36.7 C 81 20 105/41 L 92 08/19/19 20:41 88 20 08/19/19 20:36 91 08/19/19 20:30 85 20 08/19/19 20:00 72 08/19/19 16:00 87 08/19/19 14:00 36.8 C 86 16 133/76 96 08/19/19 13:48 87 20 Intake/Output I
[2019-08-20] MEDS: LACTATED RINGERS 1,000 ML 30 ML IV CONT (13:49)
--- NOTE | 2019-08-20 16:05 | PM.IMPN ---
Progress Note: A&P Assessment and Plan (1) Sepsis: Qualifiers: Sepsis type: sepsis due to unspecified organism Sepsis acute organ dysfunction status: with acute organ dysfunction Severe sepsis acute organ dysfunction type: acute renal failure Acute renal failure type: with acute tubular necrosis Severe sepsis shock status: without septic shock Qualified Code(s): A41.9 - Sepsis, unspecified organism; R65.20 - Severe sepsis without septic shock; N17.0 - Acute kidney failure with tubular necrosis Code(s): A41.9 - Sepsis, unspecified organism Status: Acute Assessment and Plan: Criteria met on admission. Urine culture is negative. Blood cultures remain negative to date. Group A strep culture negative. WBC remains normal. Will continue IV ceftriaxone and azithromycin. Will continue to monitor. Noticeable improvement today. Hopeful discharge in next few days. (2) Acute renal failure: Qualifiers: Acute renal failure type: unspecified Qualified Code(s): N17.9 - Acute kidney failure, unspecified Code(s): N17.9 - Acute kidney failure, unspecified Status: Acute Assessment and Plan: Appreciate help from Nephrology. Suspicion is this is multifactorial. Noted autoimmune hemolytic anemia. Workup thus far otherwise negative. Creatinine improved to 1.50 today. IV fluids decreased. Will continue to follow. (3) Anemia: Qualifiers: Anemia type: acquired or hereditary hemolytic anemia Hemolytic anemia type: acquired, autoimmune, other Qualified Code(s): D59.1 - Other autoimmune hemolytic anemias Code(s): D64.9 - Anemia, unspecified Status: Acute Assessment and Plan: Appreciate help from Hematology. Received transfusion of 1 unit PRBC on 08/16/2019 and 08/17/2019. Bone marrow biopsy done on 08/18/2029 with pathology showing no malignancy. Patient with noted elevated haptoglobin, positive Scott test and elevated LDH. Discussed with Dr. Chang. 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 WBC with only slight decreased to 7.0 today. Now on IV steroids. Will continue to monitor H&H. Plan for transition to high-dose oral prednisone at discharge with long, slow taper. (4) Acute respiratory failure with hypoxia: Code(s): J96.01 - Acute respiratory failure with hypoxia Status: Acute Assessment and Plan: Result of pneumonia and possibly acute renal failure. Has been unable to wean off oxygen and remains on 2 L. Will continue respiratory treatments and IV antibiotics as noted above. Continue Pulmozyme and Mucinex. (5) Pneumonia: Qualifiers: Laterality: bilateral Lung location: lower lobe of lung Pneumonia type: due to unspecified organism Qualified Code(s): J18.9 - Pneumonia, unspecified organism Code(s): J18.9 - Pneumonia, unspecified organism Status: Acute Assessment and Plan: Chest x-ray negative but CT abdomen and pelvis with extensive micronodular densities scattered throughout the lower lung zones bilaterally. Remains on IV antibiotics as noted. Bordetella testing negative. Will continue nebulizer treatments, Pulmozyme and Mucinex. Continue Phenergan with codeine as it is helping with cough. Continue oxygen currently at 2 L but will wean as tolerated. Possible may need home oxygen evaluation if unable to wean off oxygen prior to discharge. Continue Flonase and nasal saline for nasal congestion. (6) Hypokalemia: Code(s): E87.6 - Hypokalemia Status: Acute Assessment and Plan: Potassium 4.3 today. Will continue to monitor and replace as needed. (7) Rhabdomyolysis: Qualifiers: Rhabdomyolysis type: non-traumatic Qualified Code(s): M62.82 - Rhabdomyolysis Code(s): M62.82 - Rhabdomyolysis Status: Acute Assessment and Plan: Creatine kinase 1108 on admission. Creatine kinase stable at 322 on 08/19/2019. Will follow periodic
--- NOTE | 2019-08-20 17:06 | WPDONCPN ---
Progress Note: A/P - Additional Plan Autoimmune hemolytic anemia. Scott test positive. Patient is on Solu-Medrol 80 mg q.8 hours. He will be discharged home on prednisone 60 mg b.i.d. with taper of 10 mg every 4th day. He will follow with us in the office for CBC check. He will continue folic acid. Bone marrow biopsy showed no evidence of leukemia and lymphoma. I have discussed this with Dr. Morelos. Acute renal insufficiency. Creatinine has been improving. Bilateral pneumonia. Patient is afebrile on antibiotics. He is feeling better with improvement in the cough. N - Time Spent With Patient Total time spent is greater than 50% in coordination of care (as documented) at patient's floor/unit and/or counseling patient: 15 - 25 minutes Subjective Interval history: Anemia Renal insufficiency Bilateral pneumonia Rhabdomyolysis Review of Systems - Review of Systems Patient is feeling better and has minimal cough. Denies any fevers and chills. Denies any bleeding and bruising. No other new complaints. - Neurologic Reports weakness, Denies confusion, Denies headache(s) Exam Vital signs: Lungs are clear to auscultation bilaterally Cardiovascular regular rate rhythm no murmurs Abdomen soft nontender nondistended bowel sounds are positive Extremities no edema PN: Objective Data - Labs CBC & Chem 7: 08/20/19 05:22 08/20/19 05:22 Labs: Laboratory Results - last 24 hr 08/15/19 08/15/19 08/20/19 11:01 21:52 05:22 WBC 8.2 RBC 2.52 L Hgb 7.0 L Hct 22.2 L MCV 88.1 MCH 27.8 MCHC 31.5 L RDW 16.9 H Plt Count 242 MPV 10.5 H Sodium Potassium Chloride Carbon Dioxide BUN Creatinine Estim Creat Clear Calc Estimated GFR Glucose Calcium Magnesium Urine Histoplasma Ag see below Ur L.pneumophila Ag Not detected 08/20/19 05:22 WBC RBC Hgb Hct MCV MCH MCHC RDW Plt Count MPV Sodium 136 L Potassium 4.3 Chloride 101 Carbon Dioxide 30 BUN 20 Creatinine 1.50 H Estim Creat Clear Calc Not Reportable Estimated GFR 53 L Glucose 136 H Calcium 7.9 L Magnesium 1.7 Urine Histoplasma Ag Ur L.pneumophila Ag
[2019-08-21] VITALS (23 sets, daily range): BP systolic 102–132; BP diastolic 50–72; PULSE 76–94; RESP 16–20; TEMP 36.4–36.9; O2SAT 93–100
[2019-08-21] MEDS: ALBUTEROL SULFATE NEB 2.5 MG/0.5 ML INH 5 MG INHALATION ×4 (02:27→20:20)
[2019-08-21] MEDS: IPRATROPIUM BR 0.02% INH SOLN 0.5 MG/2.5 ML VIAL INHALATION ×4 (02:27→20:20)
[2019-08-21 06:43] LABS: Albumin Level 2.8 g/dL (3.5-5.1); Blood Urea Nitrogen 26 mg/dL (9-20); Calcium 7.7 mg/dL (8.4-10.2); Carbon Dioxide 27 mmol/L (22-30); Chloride 104 mmol/L (98-107); Estimated Glomerular Filt Rate 53; Glucose 190 mg/dL (75-110); Phosphorus 3.3 mg/dL (2.5-4.5); Potassium 3.9 mmol/L (3.4-5.0); Sodium 140 mmol/L (137-145)
[2019-08-21] MEDS: methylPREDNISolone SOD SUCC 125 MG VIAL 80 MG IV PUSH ×3 (07:00→21:12)
[2019-08-21 07:48] LABS: Hematocrit 21.3 % (42.0-52.0); Mean Corpuscular Hemoglobin 27.4 pg (26-34); Mean Corpuscular Volume 88.4 fl (80-100); Mean Platelet Volume 10.1 fl (7.4-10.4); Platelet Count Result 257 k/mm3 (150-375); Red Blood Count 2.41 M/mm3 (4.6-6.20); Red Cell Distribution Width 17.8 % (11.5-14.5); White Blood Count 10.6 K/mm3 (4.5-10.0)
[2019-08-21 07:52] LABS: Hemoglobin 6.6 g/dL (14.0-18.0)
[2019-08-21] MEDS: DORNASE ALFA INH SOLN 1 MG/ML 2.5 ML AMP 2.5 MG INHALATION ×2 (07:53→20:20)
[2019-08-21] MEDS: FLUTICASONE PROPIONATE 0.05% NA SPR 16 GM BTL (*BKC) 1 SPRAY NASAL ×2 (09:01→21:12)
[2019-08-21] MEDS: PANTOPRAZOLE SODIUM IV 40 MG VIAL IV PUSH (09:02)
--- NOTE | 2019-08-21 12:20 | PM.PNNEP ---
Progress Note: A&P Assessment and Plan (1) Acute renal failure: Qualifiers: Acute renal failure type: unspecified Qualified Code(s): N17.9 - Acute kidney failure, unspecified Code(s): N17.9 - Acute kidney failure, unspecified Status: Acute Assessment and Plan: suspect multifactorial etiology: - dehydration/volume depletion (supported by pre-renal urine electrolytes). However he does have swelling. He has crackles in the lungs. Will repeat a chest x-ray to see if this could be fluid. If so we could get an echocardiogram. - infection/sepsis. Blood and urine cultures are negative. He is getting antibiotics for pneumonia. - rhabdomyolysis. This is probably not may playing a major role because the level is low. - anemia the patient may have hemolysis. Free serum hemoglobin could cause some kidney damage. Dr. rolanda padilla is on the case - combination of all of the above leading to ATN - possible autoimmune disorder/vasculitis(?) -- blood and protein in urine and history of hemoptysis --hepatitis, and urine immunofixation, Anca are all normal. --his complements are low. OLGA LIDIA is pending. We will see with the show, possibly they will be back over the weekend. Consider renal biopsy if renal function is not back to normal. creatinine slowly improving no critical electrolytes and making urine (2) Sepsis: Qualifiers: Sepsis type: sepsis due to unspecified organism Sepsis acute organ dysfunction status: with acute organ dysfunction Severe sepsis acute organ dysfunction type: acute renal failure Acute renal failure type: with acute tubular necrosis Severe sepsis shock status: without septic shock Qualified Code(s): A41.9 - Sepsis, unspecified organism; R65.20 - Severe sepsis without septic shock; N17.0 - Acute kidney failure with tubular necrosis Code(s): A41.9 - Sepsis, unspecified organism Status: Acute Assessment and Plan: evidenced by tachycarida, tachypnea, elevated WBC and fever on admission all culture negative to date follow hemodynamics (3) Pneumonia: Qualifiers: Laterality: bilateral Lung location: lower lobe of lung Pneumonia type: due to unspecified organism Qualified Code(s): J18.9 - Pneumonia, unspecified organism Code(s): J18.9 - Pneumonia, unspecified organism Status: Acute Assessment and Plan: suspect viral in etiology however, cannot discount atypical organisms on antibiotics follow-up on pending titers (all negative so far...) Repeat a chest x-ray (4) Anemia: Qualifiers: Anemia type: acquired or hereditary hemolytic anemia Hemolytic anemia type: acquired, autoimmune, other Qualified Code(s): D59.1 - Other autoimmune hemolytic anemias Code(s): D64.9 - Anemia, unspecified Status: Acute Assessment and Plan: quite significant no improvement s/p 2 units of PRBCs (on 08/17/19) possible hemolysis?? -- Hem/Onc following - Scott test positive - LDH elevated but so was haptoglobin - given declining H/H, started on steroids on the concern for hemolytic anemia s/p bone marrow biopsy - pathology pending follow trend of H/H Are shot is on the case (5) Rhabdomyolysis: Qualifiers: Rhabdomyolysis type: non-traumatic Qualified Code(s): M62.82 - Rhabdomyolysis Code(s): M62.82 - Rhabdomyolysis Status: Acute Assessment and Plan: CPK is improving follow trend I doubt that this is playing a role now however before he came in it might have been more significant. Will continue to follow. Subjective Date/time seen: 08/21/19 12:20 Interval history: Patient has a cough. It use to be productive but now it is just coarse. No shortness of breath. He still has some swelling. Review of Systems Cardiovascular: Cardiovascular: Reports no additional cardiovascular complaint
--- NOTE | 2019-08-21 14:07 | PM.IMPN ---
Progress Note: A&P Assessment and Plan (1) Sepsis: Qualifiers: Acute renal failure type: with acute tubular necrosis Sepsis acute organ dysfunction status: with acute organ dysfunction Sepsis type: sepsis due to unspecified organism Severe sepsis acute organ dysfunction type: acute renal failure Severe sepsis shock status: without septic shock Qualified Code(s): A41.9 - Sepsis, unspecified organism; R65.20 - Severe sepsis without septic shock; N17.0 - Acute kidney failure with tubular necrosis Code(s): A41.9 - Sepsis, unspecified organism Status: Acute Assessment and Plan: Criteria met on admission. Urine culture is negative. Blood cultures final and negative. Group A strep culture negative. WBC remains normal. Will continue IV ceftriaxone and azithromycin. Continues to improve from respiratory standpoint. Will need for hemoglobin to be stable before discharge. Will monitor. (2) Acute renal failure: Qualifiers: Acute renal failure type: unspecified Qualified Code(s): N17.9 - Acute kidney failure, unspecified Code(s): N17.9 - Acute kidney failure, unspecified Status: Acute Assessment and Plan: Appreciate help from Nephrology. Suspicion is this is multifactorial. Noted autoimmune hemolytic anemia. Workup thus far otherwise negative. Creatinine unchanged today at 1.50. Still on IV fluids. Will continue to follow. (3) Anemia: Qualifiers: Anemia type: acquired or hereditary hemolytic anemia Hemolytic anemia type: acquired, autoimmune, other Qualified Code(s): D59.1 - Other autoimmune hemolytic anemias Code(s): D64.9 - Anemia, unspecified Status: Acute Assessment and Plan: Appreciate help from Hematology. Received transfusion of 1 unit PRBC on 08/16/2019 and 08/17/2019. Bone marrow biopsy done on 08/18/2029 with pathology showing no malignancy. Patient with noted elevated haptoglobin, positive Scott test and elevated LDH. Discussed with Dr. Chang. 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 Hemoglobin decreased to 6.6 today with patient transfused additional 1 unit PRBC. Continue IV steroids. Plan for transition to high-dose oral prednisone at discharge with long, slow taper. Will continue to monitor and transfuse as needed. (4) Acute respiratory failure with hypoxia: Code(s): J96.01 - Acute respiratory failure with hypoxia Status: Acute Assessment and Plan: Result of pneumonia and anemia. Still on oxygen but down to 1 L. Will continue respiratory treatments and IV antibiotics as noted above. Continue Pulmozyme and Mucinex. (5) Pneumonia: Qualifiers: Laterality: bilateral Lung location: lower lobe of lung Pneumonia type: due to unspecified organism Qualified Code(s): J18.9 - Pneumonia, unspecified organism Code(s): J18.9 - Pneumonia, unspecified organism Status: Acute Assessment and Plan: Chest x-ray negative but CT abdomen and pelvis with extensive micronodular densities scattered throughout the lower lung zones bilaterally. Remains on IV antibiotics as noted. Bordetella testing negative. Will continue nebulizer treatments, Pulmozyme and Mucinex. Continue Phenergan with codeine as it is helping with cough. Continue oxygen currently at 1 L but will wean as tolerated. Possible may need home oxygen evaluation if unable to wean off oxygen prior to discharge. Continue Flonase and nasal saline for nasal congestion. (6) Hypokalemia: Code(s): E87.6 - Hypokalemia Status: Acute Assessment and Plan: Potassium 3.9 today. Will continue to monitor and replace as needed. (7) Rhabdomyolysis: Qualifiers: Rhabdomyolysis type: non-traumatic Qualified Code(s): M62.82 - Rhabdomyolysis Code(s): M62.82 - Rhabdomyolysis Status: Acute Assessment and Plan: Creatine kinase 1108 on admission. Creatine kinase stable at 322 o
[2019-08-21] MEDS: SODIUM CHLORIDE 0.9% IV 250 ML 30 ML IV CONT (16:46)
[2019-08-21 20:48] LABS: Hematocrit 23.5 % (42.0-52.0); Hemoglobin 8.2 g/dL (14.0-18.0)
[2019-08-22] VITALS (17 sets, daily range): BP systolic 110–132; BP diastolic 57–68; PULSE 67–109; RESP 16–20; TEMP 36.8–36.9; O2SAT 90–98
[2019-08-22] MEDS: IPRATROPIUM BR 0.02% INH SOLN 0.5 MG/2.5 ML VIAL INHALATION ×4 (01:20→21:44)
[2019-08-22] MEDS: ALBUTEROL SULFATE NEB 2.5 MG/0.5 ML INH 5 MG INHALATION ×4 (01:20→21:44)
[2019-08-22 06:30] LABS: Albumin Level 3.2 g/dL (3.5-5.1); Blood Urea Nitrogen 27 mg/dL (9-20); Calcium 7.7 mg/dL (8.4-10.2); Carbon Dioxide 28 mmol/L (22-30); Chloride 101 mmol/L (98-107); Estimated Glomerular Filt Rate > 60; Glucose 160 mg/dL (75-110); Phosphorus 3.4 mg/dL (2.5-4.5); Potassium 4.3 mmol/L (3.4-5.0); Sodium 138 mmol/L (137-145)
[2019-08-22] MEDS: methylPREDNISolone SOD SUCC 125 MG VIAL 80 MG IV PUSH ×3 (06:59→21:30)
[2019-08-22 07:25] LABS: Basophils Percent Auto 0.1 % (0.2-1.2); Hemoglobin 8.2 g/dL (14.0-18.0); Immature Granulocyte Absolute 0.78 K/mm3 (0.00-0.031); Immature Granulocyte Percent A 7.2 % (0-0.5); Lymphocytes Absolute Auto 0.95 K/mm3 (0.9-3.2); Lymphocytes Percent Auto 8.8 % (18.3-44.2); Mean Corpuscular HGB Conc 30.4 g/dl (32-36); Mean Corpuscular Hemoglobin 27.7 pg (26-34); Mean Corpuscular Volume 91.2 fl (80-100); Monocytes Absolute Auto 0.5 K/mm3 (0.1-0.6); Monocytes Percent Auto 4.9 % (2.6-8.5); Neutrophils Absolute Auto 8.5 K/mm3 (1.3-6.7); Nucleated Red Blood Cells Absolute Auto 0.1 K/mm3 (0.0-0.012); Nucleated Red Blood Cells Perc 0.5 % (0.0-0.2); Platelet Count Result 287 k/mm3 (150-375); Red Blood Count 2.96 M/mm3 (4.6-6.20); Red Cell Distribution Width 18.6 % (11.5-14.5); White Blood Count 10.8 K/mm3 (4.5-10.0)
[2019-08-22] MEDS: DORNASE ALFA INH SOLN 1 MG/ML 2.5 ML AMP 2.5 MG INHALATION ×2 (08:17→21:47)
[2019-08-22] MEDS: FLUTICASONE PROPIONATE 0.05% NA SPR 16 GM BTL (*BKC) 1 SPRAY NASAL ×2 (09:03→21:30)
[2019-08-22] MEDS: PANTOPRAZOLE SODIUM IV 40 MG VIAL IV PUSH (09:04)
--- NOTE | 2019-08-22 12:43 | WPDONCPN ---
Progress Note: A/P - Additional Plan Autoimmune hemolytic anemia. Hemoglobin is up after 1 unit of packed red blood cell transfusion. Continue Solu-Medrol 80 mg q.8 hours along with folic acid daily. Hopefully patient will be ready to discharge in next 1-2 days. He is clinically feeling better. Bilateral pneumonia. Chest x-ray reviewed. Clinically improving. Continue antibiotics. Blood culture showed no growth. Acute renal insufficiency. Creatinine has been improving and now back to normal. - Time Spent With Patient Total time spent is greater than 50% in coordination of care (as documented) at patient's floor/unit and/or counseling patient: 15 - 25 minutes Subjective Interval history: Anemia Renal insufficiency Bilateral pneumonia Rhabdomyolysis Review of Systems - Review of Systems Patient is looking better. He denies any fevers and chills and has infrequent cough. Denies any burning in urine and diarrhea. Feels better after blood transfusion. No other new complaints. - Neurologic Reports weakness, Denies confusion, Denies headache(s) Exam Vital signs: Lungs are clear to auscultation bilaterally Cardiovascular regular rate rhythm no murmurs Abdomen soft nontender nondistended bowel sounds are positive Extremities no edema PN: Objective Data - Labs CBC & Chem 7: 08/22/19 05:41 08/22/19 05:41 Labs: Laboratory Results - last 24 hr 08/16/19 08/21/19 08/21/19 08:23 08:53 20:41 WBC RBC Hgb 8.2 L Hct 23.5 L MCV MCH MCHC RDW Plt Count MPV Immature Gran % (Auto) Neut % (Auto) Lymph % (Auto) [place] % (Auto) Eos % (Auto) Baso % (Auto) Lymph # (Auto) [place] # (Auto) Eos # (Auto) Baso # (Auto) Abs Immat Gran (auto) Absolute Neuts (auto) Absolute Nucleated RBC Nucleated RBC % Sodium Potassium Chloride Carbon Dioxide BUN Creatinine Estim Creat Clear Calc Estimated GFR Glucose Calcium Phosphorus Albumin Blood Type O Positive Antibody Screen Negative Crossmatch See Detail See Detail 08/22/19 08/22/19 05:41 05:41 WBC 10.8 H RBC 2.96 L Hgb 8.2 L Hct 27.0 L MCV 91.2 MCH 27.7 MCHC 30.4 L RDW 18.6 H Plt Count 287 MPV 10.0 Immature Gran % (Auto) 7.2 H Neut % (Auto) 79.0 H Lymph % (Auto) 8.8 L [place] % (Auto) 4.9 Eos % (Auto) 0.0 Baso % (Auto) 0.1 L Lymph # (Auto) 0.95 [place] # (Auto) 0.5 Eos # (Auto) 0.0 Baso # (Auto) 0.0 Abs Immat Gran (auto) 0.78 H Absolute Neuts (auto) 8.5 H Absolute Nucleated RBC 0.1 H Nucleated RBC % 0.5 H Sodium 138 Potassium 4.3 Chloride 101 Carbon Dioxide 28 BUN 27 H Creatinine 1.30 Estim Creat Clear Calc Not Reportable Estimated GFR > 60 Glucose 160 H Calcium 7.7 L Phosphorus 3.4 Albumin 3.2 L Blood Type Antibody Screen Crossmatch
--- NOTE | 2019-08-22 14:44 | PM.IMPN ---
Progress Note: A&P Assessment and Plan (1) Sepsis: Qualifiers: Acute renal failure type: with acute tubular necrosis Sepsis acute organ dysfunction status: with acute organ dysfunction Sepsis type: sepsis due to unspecified organism Severe sepsis acute organ dysfunction type: acute renal failure Severe sepsis shock status: without septic shock Qualified Code(s): A41.9 - Sepsis, unspecified organism; R65.20 - Severe sepsis without septic shock; N17.0 - Acute kidney failure with tubular necrosis Code(s): A41.9 - Sepsis, unspecified organism Status: Acute Assessment and Plan: Criteria met on admission. Urine culture is negative. Blood cultures final and negative. Group A strep culture negative. WBC 10.8 today but is now on steroids. Has been on IV ceftriaxone and azithromycin x7 days and will discontinue after today. Respiratory status continues to improve. Hopeful discharge tomorrow if hemoglobin remains stable. (2) Acute renal failure: Qualifiers: Acute renal failure type: unspecified Qualified Code(s): N17.9 - Acute kidney failure, unspecified Code(s): N17.9 - Acute kidney failure, unspecified Status: Acute Assessment and Plan: Appreciate help from Nephrology. Suspicion is this is multifactorial. Noted autoimmune hemolytic anemia. Workup thus far otherwise negative. Creatinine improved to 1.30 today. IV fluids at KVO rate. Will continue to follow. (3) Anemia: Qualifiers: Anemia type: acquired or hereditary hemolytic anemia Hemolytic anemia type: acquired, autoimmune, other Qualified Code(s): D59.1 - Other autoimmune hemolytic anemias Code(s): D64.9 - Anemia, unspecified Status: Acute Assessment and Plan: Appreciate help from Hematology. Received transfusion of 1 unit PRBC on 08/16/2019 and 08/17/2019. Bone marrow biopsy done on 08/18/2029 with pathology showing no malignancy. Patient with noted elevated haptoglobin, positive Soctt test and elevated LDH. Discussed with Dr. Chang. 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 Hemoglobin decreased to 6.6 on 08/21/2019 with patient transfused additional 1 unit PRBC. Hemoglobin now improved to 8.2 today. Continue IV steroids. Plan for transition to high-dose oral prednisone at discharge with long, slow taper. Will continue to monitor and transfuse as needed. (4) Acute respiratory failure with hypoxia: Code(s): J96.01 - Acute respiratory failure with hypoxia Status: Acute Assessment and Plan: Result of pneumonia and anemia. Has been able to wean down to 1 L of oxygen. Will continue nebulizer treatments, Pulmozyme and Mucinex. Completing IV antibiotics today. Chest x-ray repeated on 08/21/2019 with pattern in the mid and lower lung zones. Clinically improved. Will monitor. (5) Pneumonia: Qualifiers: Laterality: bilateral Lung location: lower lobe of lung Pneumonia type: due to unspecified organism Qualified Code(s): J18.9 - Pneumonia, unspecified organism Code(s): J18.9 - Pneumonia, unspecified organism Status: Acute Assessment and Plan: Chest x-ray on admission negative but CT abdomen and pelvis with extensive micronodular densities scattered throughout the lower lung zones bilaterally. Bordetella testing negative. Urine Legionella negative. will continue nebulizer treatments, Pulmozyme and Mucinex. Continue Phenergan with codeine as it is helping with cough. Continue oxygen currently at 1 L but will wean as tolerated. Possible may need home oxygen evaluation if unable to wean off oxygen prior to discharge. Continue Flonase and nasal saline for nasal congestion. Completing 7 days IV antibiotics today. (6) Hypokalemia: Code(s): E87.6 - Hypokalemia Status: Acute Assessment and Plan: Potassium 4.3 today. Will continue to monitor and replace as needed. (7) Rhabdomyolysis: Qualif
--- NOTE | 2019-08-22 14:45 | PM.PNNEP ---
Progress Note: A&P Assessment and Plan (1) Acute renal failure: Qualifiers: Acute renal failure type: unspecified Qualified Code(s): N17.9 - Acute kidney failure, unspecified Code(s): N17.9 - Acute kidney failure, unspecified Status: Acute Assessment and Plan: suspect multifactorial etiology: - dehydration/volume depletion Chest x-ray shows reticular pattern. No fluid. - infection/sepsis. Blood and urine cultures are negative. He is getting antibiotics for pneumonia. - rhabdomyolysis. This is probably not may playing a major role because the level is low. - anemia the patient may have hemolysis. Free serum hemoglobin could cause some kidney damage. Dr. rolanda padilla is on the case - combination of all of the above leading to ATN - possible autoimmune disorder/vasculitis(?) -- blood and protein in urine and history of hemoptysis --hepatitis, and urine immunofixation, Anca are all normal. --his complements are low. OLGA LIDIA is pending. His creatinine has improved to normal. If this were a glomerulonephritis his numbers would not be getting better. Repeat complements down the line. no critical electrolytes and making urine (2) Sepsis: Qualifiers: Sepsis type: sepsis due to unspecified organism Sepsis acute organ dysfunction status: with acute organ dysfunction Severe sepsis acute organ dysfunction type: acute renal failure Acute renal failure type: with acute tubular necrosis Severe sepsis shock status: without septic shock Qualified Code(s): A41.9 - Sepsis, unspecified organism; R65.20 - Severe sepsis without septic shock; N17.0 - Acute kidney failure with tubular necrosis Code(s): A41.9 - Sepsis, unspecified organism Status: Acute Assessment and Plan: evidenced by tachycarida, tachypnea, elevated WBC and fever on admission all culture negative to date He seems to be improving. (3) Pneumonia: Qualifiers: Laterality: bilateral Lung location: lower lobe of lung Pneumonia type: due to unspecified organism Qualified Code(s): J18.9 - Pneumonia, unspecified organism Code(s): J18.9 - Pneumonia, unspecified organism Status: Acute Assessment and Plan: suspect viral in etiology however, cannot discount atypical organisms on antibiotics (4) Anemia: Qualifiers: Anemia type: acquired or hereditary hemolytic anemia Hemolytic anemia type: acquired, autoimmune, other Qualified Code(s): D59.1 - Other autoimmune hemolytic anemias Code(s): D64.9 - Anemia, unspecified Status: Acute Assessment and Plan: quite significant no improvement s/p 2 units of PRBCs (on 08/17/19) possible hemolysis?? -- Hem/Onc following - Scott test positive - LDH elevated but so was haptoglobin - given declining H/H, started on steroids on the concern for hemolytic anemia s/p bone marrow biopsy - pathology pending follow trend of H/H Are shot is on the case (5) Rhabdomyolysis: Qualifiers: Rhabdomyolysis type: non-traumatic Qualified Code(s): M62.82 - Rhabdomyolysis Code(s): M62.82 - Rhabdomyolysis Status: Acute Assessment and Plan: CPK is improving follow trend I doubt that this is playing a role now however before he came in it might have been more significant. Will continue to follow. Subjective Date/time seen: 08/22/19 14:45 Interval history: Patient is feeling better. Cough is better. No shortness of breath. He still has some swelling. Review of Systems Cardiovascular: Cardiovascular: Reports no additional cardiovascular complaints Respiratory: Respiratory: Reports no additional respiratory complaints Gastrointestinal: Gastrointestinal: Reports no additional gastrointestinal complaints Genitourinary: Genitourinary: Reports no additional male genitourinary complaints Exam
[2019-08-23] VITALS (13 sets, daily range): BP systolic 103–125; BP diastolic 52–68; PULSE 66–105; RESP 18–20; TEMP 36.3–36.8; O2SAT 90–95
[2019-08-23] MEDS: ALBUTEROL SULFATE NEB 2.5 MG/0.5 ML INH 5 MG INHALATION ×2 (01:02→09:27)
[2019-08-23] MEDS: IPRATROPIUM BR 0.02% INH SOLN 0.5 MG/2.5 ML VIAL INHALATION ×2 (01:02→09:27)
[2019-08-23] MEDS: methylPREDNISolone SOD SUCC 125 MG VIAL 80 MG IV PUSH ×2 (06:08→14:34)
[2019-08-23 06:50] LABS: Magnesium 1.6 mg/dL (1.6-2.3)
[2019-08-23 06:53] LABS: Albumin Level 2.9 g/dL (3.5-5.1); Blood Urea Nitrogen 26 mg/dL (9-20); Calcium 7.7 mg/dL (8.4-10.2); Carbon Dioxide 27 mmol/L (22-30); Chloride 103 mmol/L (98-107); Estimated Glomerular Filt Rate > 60; Glucose 188 mg/dL (75-110); Phosphorus 3.4 mg/dL (2.5-4.5); Potassium 3.9 mmol/L (3.4-5.0); Sodium 136 mmol/L (137-145)
[2019-08-23 07:18] LABS: Basophils Percent Auto 0.1 % (0.2-1.2); Hematocrit 27.3 % (42.0-52.0); Hemoglobin 8.2 g/dL (14.0-18.0); Immature Granulocyte Percent A 6.8 % (0-0.5); Lymphocytes Absolute Auto 1.05 K/mm3 (0.9-3.2); Lymphocytes Percent Auto 10.2 % (18.3-44.2); Mean Corpuscular Hemoglobin 27.4 pg (26-34); Mean Corpuscular Volume 91.3 fl (80-100); Mean Platelet Volume 9.8 fl (7.4-10.4); Monocytes Absolute Auto 0.5 K/mm3 (0.1-0.6); Monocytes Percent Auto 5.3 % (2.6-8.5); Neutrophils Percent Auto 77.6 % (45.5-73.1); Nucleated Red Blood Cells Absolute Auto 0.1 K/mm3 (0.0-0.012); Nucleated Red Blood Cells Perc 1.1 % (0.0-0.2); Platelet Count Result 281 k/mm3 (150-375); Red Blood Count 2.99 M/mm3 (4.6-6.20); Red Cell Distribution Width 19.5 % (11.5-14.5); White Blood Count 10.3 K/mm3 (4.5-10.0)
[2019-08-23] MEDS: PANTOPRAZOLE SODIUM IV 40 MG VIAL IV PUSH (08:02)
[2019-08-23] MEDS: FLUTICASONE PROPIONATE 0.05% NA SPR 16 GM BTL (*BKC) 1 SPRAY NASAL (08:02)
[2019-08-23] MEDS: DORNASE ALFA INH SOLN 1 MG/ML 2.5 ML AMP 2.5 MG INHALATION (09:30)
--- NOTE | 2019-08-23 11:48 | PM.IMPN ---
Progress Note: A&P Assessment and Plan (1) Sepsis: Qualifiers: Acute renal failure type: with acute tubular necrosis Sepsis acute organ dysfunction status: with acute organ dysfunction Sepsis type: sepsis due to unspecified organism Severe sepsis acute organ dysfunction type: acute renal failure Severe sepsis shock status: without septic shock Qualified Code(s): A41.9 - Sepsis, unspecified organism; R65.20 - Severe sepsis without septic shock; N17.0 - Acute kidney failure with tubular necrosis Code(s): A41.9 - Sepsis, unspecified organism Status: Acute Assessment and Plan: Criteria met on admission. Urine culture is negative. Blood cultures final and negative. Group A strep culture negative. WBC 10.3 today but is on steroids. Completed 7 days course of IV ceftriaxone and azithromycin. Respiratory improved. Will do home oxygen evaluation. Will discharge today. (2) Acute renal failure: Qualifiers: Acute renal failure type: unspecified Qualified Code(s): N17.9 - Acute kidney failure, unspecified Code(s): N17.9 - Acute kidney failure, unspecified Status: Acute Assessment and Plan: Appreciate help from Nephrology. Suspicion is this is multifactorial. Noted autoimmune hemolytic anemia. Workup thus far otherwise negative. Creatinine improved to 1.2 today. Follow as outpatient. (3) Anemia: Qualifiers: Anemia type: acquired or hereditary hemolytic anemia Hemolytic anemia type: acquired, autoimmune, other Qualified Code(s): D59.1 - Other autoimmune hemolytic anemias Code(s): D64.9 - Anemia, unspecified Status: Acute Assessment and Plan: Appreciate help from Hematology. Received transfusion of 1 unit PRBC on 08/16/2019 and 08/17/2019. Bone marrow biopsy done on 08/18/2029 with pathology showing no malignancy. Patient with noted elevated haptoglobin, positive Scott test and elevated LDH. Discussed with Dr. Chang. 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 Hemoglobin decreased to 6.6 on 08/21/2019 with patient transfused additional 1 unit PRBC. Hemoglobin now stable at 8.2 today. Has been on IV steroids but plan for transition to high-dose oral prednisone at discharge with long, slow taper. Will continue to monitor and transfuse as needed. (4) Acute respiratory failure with hypoxia: Code(s): J96.01 - Acute respiratory failure with hypoxia Status: Acute Assessment and Plan: Result of pneumonia and anemia. Has been on nebulizer treatments, Pulmozyme and Mucinex. Completed IV antibiotics. Chest x-ray repeated on 08/21/2019 with pattern in the mid and lower lung zones. Clinically improved. (5) Pneumonia: Qualifiers: Laterality: bilateral Lung location: lower lobe of lung Pneumonia type: due to unspecified organism Qualified Code(s): J18.9 - Pneumonia, unspecified organism Code(s): J18.9 - Pneumonia, unspecified organism Status: Acute Assessment and Plan: Chest x-ray on admission negative but CT abdomen and pelvis with extensive micronodular densities scattered throughout the lower lung zones bilaterally. Bordetella testing negative. Urine Legionella negative. Has been on nebulizer treatments, Pulmozyme and Mucinex. Continue Phenergan with codeine as it is helping with cough. Has been off and on 1 liter of oxygen. Will do home oxygen evaluation. Has completed course of antibiotics. Continue oxygen currently at 1 L but will wean as tolerated. Continue Flonase and nasal saline for nasal congestion. (6) Hypokalemia: Code(s): E87.6 - Hypokalemia Status: Acute Assessment and Plan: Potassium stable at 3.9 today. (7) Rhabdomyolysis: Qualifiers: Rhabdomyolysis type: non-traumatic Qualified Code(s): M62.82 - Rhabdomyolysis Code(s): M62.82 - Rhabdomyolysis Status: Acute Assessment and Plan: Creatine kinase 1108 on
--- NOTE | 2019-08-23 12:04 | PCDIET ---
Weekly nutritional screen. Patient is tolerating current diet with adequate intake (recorded 75-100% of meals consumed). No weight loss reported. No nutritional needs at this time.
--- NOTE | 2019-08-23 12:13 | PCNSR ---
On 08/23/19, the student, Nora Villasenor, provided care and completed [facility] documentation on this patient. I have reviewed the student's documentation and agree with the findings.
--- NOTE | 2019-08-23 14:25 | HOMEO2EVAL ---
Home Oxygen Evaluation RC: Home Oxygen (O2) Evaluation Start: 08/23/19 11:47 Freq: ONCE Status: Active Protocol: RPE Activity Type Activity Date Activity User E-Sign Co-Sign Detail Recorded Client Recorded Date Recorded By Document 08/23/19 13:57 KRM [id number] 08/23/19 14:25 KRM Document 08/23/19 13:58 KRM [id number] 08/23/19 14:25 KRM Document 08/23/19 14:00 KRM [email or web address] 08/23/19 14:25 KRM Document 08/23/19 14:05 KRM [id number] 08/23/19 14:25 KRM 08/23/19 08/23/19 08/23/19 13:57 13:58 14:00 Home O2 Evaluation Test Phase Resting Exercise Exercise Oxygen Delivery Room Air Room Air Room Air Pulse Oximetry (90-100 %) 93 90 90 Pulse Rate (60-100 beats/min) 88 101 H 105 H Activity Tolerance Good Good Ambulation Distance (feet) 400 Treatment Charges O2 Evaluation 08/23/19 14:05 Home O2 Evaluation Test Phase Resting Oxygen Delivery Room Air Pulse Oximetry (90-100 %) 92 Pulse Rate (60-100 beats/min) 89 Activity Tolerance Ambulation Distance (feet) Treatment Charges
--- NOTE | 2019-08-23 21:10 | PM.DS ---
DS: Diagnosis Admitting Diagnosis Admitting Diagnosis: Sepsis, unspecified organism Discharge Diagnosis (1) Sepsis: Qualifiers: Sepsis type: sepsis due to unspecified organism Sepsis acute organ dysfunction status: with acute organ dysfunction Severe sepsis acute organ dysfunction type: acute renal failure Acute renal failure type: with acute tubular necrosis Severe sepsis shock status: without septic shock Qualified Code(s): A41.9 - Sepsis, unspecified organism; R65.20 - Severe sepsis without septic shock; N17.0 - Acute kidney failure with tubular necrosis Code(s): A41.9 - Sepsis, unspecified organism Status: Acute (2) Acute renal failure: Qualifiers: Acute renal failure type: unspecified Qualified Code(s): N17.9 - Acute kidney failure, unspecified Code(s): N17.9 - Acute kidney failure, unspecified Status: Acute (3) Anemia: Qualifiers: Anemia type: acquired or hereditary hemolytic anemia Hemolytic anemia type: acquired, autoimmune, other Qualified Code(s): D59.1 - Other autoimmune hemolytic anemias Code(s): D64.9 - Anemia, unspecified Status: Acute (4) Acute respiratory failure with hypoxia: Code(s): J96.01 - Acute respiratory failure with hypoxia Status: Acute (5) Pneumonia: Qualifiers: Laterality: bilateral Lung location: lower lobe of lung Pneumonia type: due to unspecified organism Qualified Code(s): J18.9 - Pneumonia, unspecified organism Code(s): J18.9 - Pneumonia, unspecified organism Status: Acute (6) Hypokalemia: Code(s): E87.6 - Hypokalemia Status: Acute (7) Rhabdomyolysis: Qualifiers: Rhabdomyolysis type: non-traumatic Qualified Code(s): M62.82 - Rhabdomyolysis Code(s): M62.82 - Rhabdomyolysis Status: Acute (8) Arm edema: Code(s): R60.0 - Localized edema Status: Acute (9) Hyperbilirubinemia: Code(s): E80.6 - Other disorders of bilirubin metabolism Status: Acute (10) UTI (urinary tract infection): Qualifiers: Urinary tract infection type: acute cystitis Hematuria presence: with hematuria Qualified Code(s): N30.01 - Acute cystitis with hematuria Code(s): N39.0 - Urinary tract infection, site not specified Status: Acute DS: Summary Hospital Course Reason for hospitalization: Shortness of breath with dyspnea on exertion, productive cough, vomiting. Hospital Course: Date of Service of Discharge: August 23, 2019. History of Present Illness: Patient is a pleasant 34-year-old previously healthy male presented to the emergency room with symptoms beginning 2 weeks ago. Patient reports having nausea vomiting, rhinorrhea, congestion and cough. He did travel to [place] but had symptoms prior to boarding the plane. No other travel. He reports having fever, chills and night sweats. He did see his primary physician on August 05 was treated with albuterol, Augmentin times 10 days, prednisone x7 days antiemetic and anti tussive medication. Symptoms initially improved over the next 4-5 days but then condition worsened 5 days prior to presentation. He reports having shortness of breath with dyspnea on exertion. He began having coughing jags that would result in vomiting. Cough mostly dry but at times productive of yellow-green sputum. One episode of hemoptysis. Patient reports having fever up to 104. He also reports upper abdominal pain and back pain. Oral intake decreased. He began noticing bilateral lower extremity edema and tingling in his feet in the 2 days prior to presentation. Patient reports chest tightness for 2 days associated with the shortness of breath. Patient reports diarrhea but no melena or hematochezia. No hematemesis. Urine dark but no hematuria or dysuria. Urine output decreased. Difficulty lying flat in bed because of shortness of breath. Mild myalgias. In the emergency room, he was no
== END 2019-08-23 15:10 | disposition home or self-care (01) | DRG 871 ==
LOC: ANHED 07:44 → ANH3MEDSUR 08-17 14:55
PROVIDERS: Emergency Medicine; Internal Medicine Hematology & Oncology; Internal Medicine Nephrology; Radiology Diagnostic Radiology; Admitting Provider Internal Medicine; Emergency Provider Emergency Medicine; PCP Family Medicine; Visit Provider Hospitalist
PROC: 07DR3ZX Extraction of Iliac Bone Marrow, Percutaneous Approach, Diagnostic (ICD-10-PCS; principal; 2019-08-18 11:30)
DX: A41.9 Sepsis, unspecified organism (principal); N17.0 Acute kidney failure with tubular necrosis; J96.01 Acute respiratory failure with hypoxia; J12.9 Viral pneumonia, unspecified; M62.82 Rhabdomyolysis; R65.20 Severe sepsis without septic shock; D64.9 Anemia, unspecified; E87.6 Hypokalemia; B95.0 Streptococcus, group A, as the cause of diseases classified elsewhere; Z87.891 Personal history of nicotine dependence; E86.0 Dehydration
CPT/HCPCS: 36415; 36430; 38222; 71046; 74176; 76775; 80048; 80053; 80069; 80074; 80076; 81001; 82550; 82570; 82607; 82728; 82746; 83010; 83520; 83540; 83550; 83605; 83615; 83690; 83735; 84100; 84155; 84156; 84165; 84166; 84300; 84443; 85014; 85018; 85025; 85027; 85610; 85730; 85999; 86021; 86038; 86060; 86140; 86160; 86162; 86334; 86850; 86880; 86900; 86901; 86923; 87040; 87081; 87086; 87110; 87140; 87385; 87449; 87486; 87798; 87804; 87880; 88184; 88185; 88305; 88311; 88313; 88360; 94618; 94640; 96361; 96365; 96375; 99291; A9270; C9113; J0456; J0696; J1885; J2405; J2930; J3010; J7030; J7040; J7050; J7120; P9016

== ENCOUNTER 2019-08-30 14:29 | Outpatient (CLI) | payer BC, SELFPAY ==
[2019-08-30 14:45] LABS: Hematocrit 34.8 % (42.0-52.0); Hemoglobin 10.7 g/dL (14.0-18.0); Mean Corpuscular HGB Conc 30.7 g/dl (32-36); Mean Corpuscular Hemoglobin 28.8 pg (26-34); Mean Corpuscular Volume 93.5 fl (80-100); Mean Platelet Volume 9.2 fl (7.4-10.4); Platelet Count Result 213 k/mm3 (150-375); Red Blood Count 3.72 M/mm3 (4.6-6.20); White Blood Count 13.8 K/mm3 (4.5-10.0)
[2019-08-30 14:49] LABS: Blood Urea Nitrogen 30 mg/dL (8-26); Carbon Dioxide 29 mmol/L (22-30); Chloride 103 mmol/L (98-109); Estimated Glomerular Filt Rate > 60; Glucose 146 mg/dL (70-105); Potassium 3.8 mmol/L (3.5-4.9); Sodium 142 mmol/L (138-146)
[2019-08-30 14:54] LABS: Atypical Lymphocytes Present; Band Neutrophils Percent 3 % (0-6); Monocytes Absolute Manual 0.96 K/mm3 (0.1-0.90); Monocytes Percent Manual 7 % (3-9); Neutrophils Absolute Manual 11.73 K/mm3 (1.3-6.7); Neutrophils Percent Manual 82 % (46-73); Platelet Estimate Adequate (Adequate); Total Cells Counted 100
[2019-08-30 16:37] LABS: Iron 63 ug/dL (49-181)
[2019-08-30 16:46] LABS: Alanine Aminotransferase 100 U/L (4-50); Albumin Level 3.2 g/dL (3.5-5.1); Alkaline Phosphatase 86 U/L (38-126); Aspartate Amino Transferase 34 U/L (17-59); Bilirubin,Total 0.4 mg/dL (0.2-1.3); Blood Urea Nitrogen 35 mg/dL (9-20); Calcium 8.7 mg/dL (8.4-10.2); Carbon Dioxide 29 mmol/L (22-30); Chloride 101 mmol/L (98-107); Estimated Glomerular Filt Rate > 60; Glucose 140 mg/dL (75-110); Potassium 4.1 mmol/L (3.4-5.0); Sodium 142 mmol/L (137-145)
[2019-08-30 16:47] LABS: Percent Iron Saturation 26 % (20-50)
== END 2019-08-30 14:30 | disposition home or self-care (01) ==
LOC: ANHLAB 14:30
PROVIDERS: PCP Family Medicine; Visit Provider Internal Medicine Hematology & Oncology
DX: D59.9 Acquired hemolytic anemia, unspecified (principal)
CPT/HCPCS: 36415; 80048; 80053; 82728; 83540; 83550; 85025

== ENCOUNTER 2019-09-16 20:03 | Inpatient (IN) | payer BC, SELFPAY ==
--- NOTE | ~2019-09-16 | CT_ITS ---
EXAMINATION: CT abdomen pelvis w con DATE: 09/17/2019 00:36 INDICATION: Right lower quadrant abdominal tenderness. TECHNIQUE: Computed tomography (CT) of the abdomen and pelvis was performed with 100 mg Omnipaque 350 intravenous contrast. Automated exposure control and iterative reconstruction technique were employe d. The dose-length product was 1610.04 mGy-cm. COMPARISON: CT abdomen and pelvis 08/15/2019 FINDINGS: The visualized portions of the lung bases are clear without pneumonia or pleural effusion. The heart size is normal. No pericardial effusion. There is diffuse hepatic steatosis. The gallbladde r, spleen, pancreas, adrenal glands, and kidneys are normal. There are no dilated loops of bowel. The appendix is normal. There are no pathologically enlarged lymph nodes. There is no free intraperitone al fluid. There is a supraumbilical ventral hernia containing fat with stable fat stranding, consiste nt with inflammation/scarring. There is mild lumbar spondylosis. IMPRESSION: 1. Supraumbilical ventral hernia containing fat. 2. Diffuse hepatic steatosis. Reviewed, dictated and finalized at location A. ICAL ACCOUNT LIAISON
[2019-09-16 20:40] VITALS: BP 136/85; PULSE 88; RESP 22; TEMP 36.3; O2SAT 100
[2019-09-16 20:57] LABS: Basophils Percent Auto 0.2 % (0.2-1.2); Hematocrit 55.7 % (42.0-52.0); Hemoglobin 16.3 g/dL (14.0-18.0); Immature Granulocyte Absolute 0.22 K/mm3 (0.00-0.031); Immature Granulocyte Percent A 1.7 % (0-0.5); Lymphocytes Absolute Auto 0.64 K/mm3 (0.9-3.2); Lymphocytes Percent Auto 4.9 % (18.3-44.2); Mean Corpuscular HGB Conc 29.3 g/dl (32-36); Mean Corpuscular Hemoglobin 30.1 pg (26-34); Mean Corpuscular Volume 102.8 fl (80-100); Mean Platelet Volume 11.9 fl (7.4-10.4); Monocytes Absolute Auto 0.9 K/mm3 (0.1-0.6); Neutrophils Absolute Auto 11.2 K/mm3 (1.3-6.7); Neutrophils Percent Auto 86.2 % (45.5-73.1); Platelet Count Result 183 k/mm3 (150-375); Red Blood Count 5.42 M/mm3 (4.6-6.20); Red Cell Distribution Width 18.9 % (11.5-14.5)
[2019-09-16 21:04] LABS: Add Urine Microscopic? YES; Appearance Urine Clear (Clear); Bilirubin Urine Negative (Negative); Blood Urine 2+ (Negative); Color Urine Colorless (Yellow); Glucose Urine UA 3+ mg/dL (Negative); Ketones Urine Trace mg/dL (Negative); Leukocyte Esterase Ur Negative LEU/UL (Negative); Nitrate Urine Negative (Negative); Protein Urine Negative (Negative); Specific Grav Ur 1.028 (1.001-1.035); Squamous Epithelial Cell Urine Rare /hpf (Few); Urobilinogen Urine Negative mg/dL (<2.0); WBC Urine 0-3 /hpf
[2019-09-16 21:16] LABS: Platelet Estimate Adequate (Adequate)
[2019-09-16 21:17] LABS: Anisocytosis 2+ (NORMAL); Hypochromasia 1+ (NORMAL)
[2019-09-16 21:22] LABS: Beta-Hydroxybutyrate/Acetoacetate 3.78 mmol/L (0.02-0.27)
[2019-09-16 22:44] LABS: Glucose Point of Care > 500 (65-105)
[2019-09-16 22:56] LABS: Glucose Point of Care > 500 (65-105)
[2019-09-16 22:58] VITALS: PULSE 125; RESP 24; O2SAT 96
--- NOTE | 2019-09-16 23:04 | ED.RECABL ---
HPI - Recheck/Abnormal Lab/Rx General Chief Complaint: Recheck/Abnormal Lab/Rx Stated Complaint: N/V Time Seen by Provider: 09/16/19 23:01 Source: patient and RN notes reviewed Mode of arrival: other Limitations: no limitations History of Present Illness HPI narrative: Pt is a 34 y/o male who presents to the ED with c/o an elevated blood glucose that occurred earlier this afternoon. Pt was admitted to [facility] on 08/14/19 for acute renal failure with sepsis. He states that his hemoglobin was at 4. Pt received 3 blood transfusions. Pt also tested positive for pneumonia and was admitted for two weeks. Pt received abx and steroids. Pt notes that he went back to work in August. Pt has been tapering off the Prednisone and he states that he is down to 7 tablets per day. Pt notes that he can only sleep in 20 minute increments d/t frequent urination. He notes that he drinks liters of water and he is still thirsty. Pt notes that his ex is diabetic and she checked the pt's blood glucose levels today. Pt notes that the monitor stated 'high.' Pt denies having a hx of being diabetic. Pt states that he saw his PCP today. Pt also reports blurry vision. complaint: abnormal lab (elevated blood glucose) Initial visit (ago): hour(s) Returns today for: called because of abnormal lab/test (elevated blood glucose) Associated symptoms: other (frequent urination, dry mouth, increased thirst, difficulty sleeping) Related Data Allergies Allergy/AdvReac Type Severity Reaction Status Date / Time peanut Allergy Unknown Itching Verified 08/15/19 03:46 Review of Systems Review of Systems: All systems reviewed & are unremarkable except as noted in HPI and below Constitutional: Constitutional: Reports difficulty sleeping Eyes: Eyes: Reports change in vision (blurred vision) ENT: Reports dry mouth Genitourinary: Genitourinary: Reports urinary frequency Endocrine: Endocrine: Reports polydipsia PMFSH Past Medical History Medical History Autoimmune hemolytic anemia Pneumonia Sepsis UTI (urinary tract infection) Surgical History Surgical History H/O vasectomy Family History Family History Mother Skin cancer Social History Social History Social History: Patient quit smoking about 5 years ago after smoking a pack a day for about 12 years. He denies alcohol or drug use. Lives at home with his 2 sons. He is . Children currently staying with his ex-. Patient is a full code. He nominates his ex- Karla be the individual would make medical decisions for him if he is unable. Smoking packs per day: 1 Smoking cigarettes per day: 20.0 Years smoked: 12 Smoking pack-years: 12.00 Smoking status: Former smoker Tobacco type: cigarettes Smoking end date: 08/04/14 Alcohol intake: never Substance use: never Gender identity (if verbalized by the patient): Male Spiritual care concerns: No Agree to blood products: No Exam Const: General: ill appearing other (mildly); No in distress Nutritional Appearance: obese morbidly obese Orientation/consciousness: patient oriented x3 Limitations: no limitations HENMT: Mouth: Yes lip normal and Yes dry mucous membranes Resp: Effort & Inspection: normal respiratory effort Auscultation: clear to auscultation bilaterally, no crackles, no rales, no rhonchi and no wheezes Cardio: Rate: tachycardic Rhythm: abnormal rhythm irregularly irregular GI: GI Palp: Yes abdominal tenderness (RLQ tenderness) and Yes Soft to palpation Auscultation: normal bowel sounds Skin: General skin exam: normal color Neuro: General: patient oriented x3 Cognition (Neuro): normal cognition Speech: normal speech Extrem: General: normal to inspection, full ROM and no clubbing, cya
--- NOTE | 2019-09-16 23:05 | ECG_ITS ---
Measurements Intervals [place] Rate: 123 P: DC: 0 QRS: -4 QRSD: 114 T: 5 QT: 316 QTc: 452 Interpretive Statements ATRIAL FIBRILLATION WITH RAPID VENTRICULAR RESPONSE INCOMPLETE RIGHT BUNDLE BRANCH BLOCK VOLTAGE CRITERIA FOR LVH DELAYED PRECORDIAL R/S TRANSITION BASELINE ARTIFACT- I, II, III, AVR, AVL, AVF, V1-V6 ABNORMAL ECG Electronically Signed On 09-17-2019 7:07:10 CERTIFIED SURGICAL TECHNICIAN by Arcadio Schwab D.O.
[2019-09-16] MEDS: SODIUM CHLORIDE 0.9% IV 1,000 ML 999 ML IV CONT (23:31)
[2019-09-16 23:40] LABS: Prothrombin Time 13.1 Seconds (11.1-14.7)
[2019-09-16 23:41] LABS: Partial Thromboplastin Time 20.7 SECONDS (22.3-36.8)
[2019-09-16 23:43] LABS: D Dimer 0.36 ug/mL (<0.48)
[2019-09-17] VITALS (19 sets, daily range): BP systolic 100–139; BP diastolic 77–117; PULSE 58–136; RESP 12–28; TEMP 36.3–36.7; O2SAT 96–100; BMI 44.0
[2019-09-17 00:26] LABS: Blood Urea Nitrogen 50 mg/dL (8-26); Estimated CRCL calculation 55 ml/min; Estimated Glomerular Filt Rate 32
[2019-09-17 00:38] LABS: Lipase 1409 U/L (23-300); Troponin I < 0.012 ng/mL (0.000-0.034)
[2019-09-17 00:56] LABS: Alanine Aminotransferase 119 U/L (4-50); Albumin Level 3.9 g/dL (3.5-5.1); Alkaline Phosphatase 192 U/L (38-126); Aspartate Amino Transferase 31 U/L (17-59); Bilirubin,Total 1.3 mg/dL (0.2-1.3); Blood Urea Nitrogen 52 mg/dL (9-20); Calcium 9.3 mg/dL (8.4-10.2); Carbon Dioxide 19 mmol/L (22-30); Chloride 85 mmol/L (98-107); Estimated CRCL calculation 63 ml/min; Estimated Glomerular Filt Rate 38; Magnesium 2.7 mg/dL (1.6-2.3); Phosphorus 6.3 mg/dL (2.5-4.5); Sodium 128 mmol/L (137-145)
[2019-09-17 00:57] LABS: Glucose 1239 mg/dL (75-110); Potassium 6.3 mmol/L (3.4-5.0)
[2019-09-17] MEDS: SODIUM CHLORIDE 0.9% IV 1,000 ML 999 ML IV CONT ×2 (01:12→01:31)
[2019-09-17 01:22] LABS: Glucose Point of Care > 500 (65-105)
[2019-09-17 01:25] LABS: Hemoglobin A1C 9.6 % (<5.7)
--- NOTE | 2019-09-17 01:45 | ECG_ITS ---
Measurements Intervals [place] Rate: 108 P: PA: 0 QRS: -3 QRSD: 98 T: 232 QT: 309 QTc: 415 Interpretive Statements ATRIAL FIBRILLATION WITH RAPID VENTRICULAR RESPONSE VOLTAGE CRITERIA FOR LVH BORDERLINE ST-T WAVE ABNORMALITY- DIFFUSE LEADS BASELINE ARTIFACT- I, II, III, AVR, AVL, AVF, V1, V5 ABNORMAL ECG Electronically Signed On 09-17-2019 7:13:58 SENIOR ORACLE SOA DEVELOPER by Arcadio Schwab D.O.
--- NOTE | 2019-09-17 01:59 | PM.IMHP ---
H&P: HPI History of Present Illness Chief complaint: Elevated blood sugar today++ Narrative: This is a morbidly obese male well known to our hospitalist service for recent admission for which he was treated for acute renal failure, sepsis, and pneumonia who presented to the hospital today with a complaint of elevated blood sugars yesterday afternoon. During the patient's last hospitalization he had severe anemia related to hemolytic anemia which required multiple blood transfusions. The patient has been on steroid therapy since then. He reports that he has had significant increase in thirst and has been urinating every 20 minutes nonstop. He reported this to his doctors who attributed the symptoms to his steroid use. He also reports that he has had worsening blurry vision over the past couple of days. He has had right sided abdominal pain+ He denies any fevers, coughing, shortness of breath, chest pain, wheezing, sore throat, nausea, vomiting, diarrhea, or rectal bleeding. Patient has not been able to sleep recently and today he felt so bad that he decided to have his ex bring over her glucometer for him to check his blood sugar. His blood sugar reading was high and he decided to come to the hospital for further evaluation. The patient was evaluated emergency room and found to be in acute DKA with a blood glucose of 1239 mg/dl, elevated serum ketones with a beta hydroxybutyrate of 3.78 mmol/L, and an anion gap of 24. The patient was also found to be in rapid atrial fibrillation. The patient has no previous history of arrhythmias or diabetes. The patient was started on IV insulin therapy in the ER tonight. Complaint Clerk has been consulted by ER provider. Review of Systems Review of Systems: All systems reviewed & are unremarkable except as noted in HPI and below PMFSH Past Medical History Medical History Autoimmune hemolytic anemia Pneumonia Sepsis UTI (urinary tract infection) Surgical History Surgical History H/O vasectomy Family History Family History Mother Skin cancer Social History Social History Social History: Patient quit smoking about 5 years ago after smoking a pack a day for about 12 years. He denies alcohol or drug use. Lives at home with his 2 sons. He is . Children currently staying with his ex-. Patient is a full code. He nominates his ex- Karla be the individual would make medical decisions for him if he is unable. Smoking packs per day: 1 Smoking cigarettes per day: 20.0 Years smoked: 12 Smoking pack-years: 12.00 Smoking status: Former smoker Tobacco type: cigarettes Smoking end date: 08/04/14 Alcohol intake: never Drinks per week: 0 Substance use: never Gender identity (if verbalized by the patient): Male Spiritual care concerns: No Agree to blood products: Yes Meds Home Medications and Allergies Home Medications Medication Instructions Recorded Confirmed Type fluticasone propionate 1 spray INTRANASAL Q12HR #15.8 ml 08/23/19 09/17/19 Rx folic acid 1 mg PO DAILY 30 Days #30 tablet 08/23/19 09/17/19 Rx guaifenesin [Mucus Relief ER] 1,200 mg PO Q12HR 30 Days #120 08/23/19 09/17/19 Rx tablet hydrocodone-acetaminophen 1 tablet PO Q4H PRN #15 tablet 08/23/19 09/17/19 Rx prednisone 10 mg PO DIRECTED #312 tablet 08/23/19 09/17/19 Rx promethazine-codeine 5 ml PO Q6H PRN #120 ml 08/23/19 09/17/19 Rx sodium chloride [Saline Mist] 1 spray INTRANASAL Q6HR PRN #15 ml 08/23/19 09/17/19 Rx Allergies Allergy/AdvReac Type Severity Reaction Status Date / Time peanut Allergy Unknown Itching Verified 09/17/19 05:38 Vital Signs Vital Signs - 24 hr 09/16/19 20:40 09/16/19 22:58 Temperature 36.3 C L Pulse Rate 88 125 H Respiratory Rate 2
--- NOTE | 2019-09-17 02:14 | ECHO_ITS ---
Patient Info Name: Zheng Carrizales Age: 34 years : 1985 Gender: Male Ht: 69 in Wt: 297 lbs BSA: 2.63 m2 HR: 93 bpm BP: 100 / 77 mmHg Heart Rhythm: Atrial Fibrillation Technical Quality: Good Exam Date: 09/17/2019 8:25 AM Exam Location: [facility] Pulmonary Patient Status: Inpatient Admit Date: 09/17/2019 Staff Ordering Physician: Jitendra Noland MD Digital Marketing Coordinator: Thad Marlow RDCS, RT Attending Provider: Jitendra Noland MD Referring Physician: Ludin DILL; Exam Type: CA echo dop color flow w con Study Info Indications I48.0 - Paroxysmal atrial fibrillation Complete two-dimensional, color flow and Doppler transthoracic echocardiogram is performed with contrast to opacify the left ventrical and to improve the deliniation of the left ventrical endocarial boarders. Summary 1. Left ventricular systolic function is normal, estimated at 60-65%. 2. Definity contrast injected to improve visualization. 3. Technically challenging study because of obesity. 4. Left atrial chamber dimension is normal. 5. Difficult exam but no significant valvular abnormalities were identified. Left Ventricle Left ventricular chamber dimension is normal. Left ventricular systolic function is normal, estimated at 60-65%. Definity contrast injected to improve visualization. Technically challenging study because of obesity. Right Ventricle Right ventricular chamber dimension is not well visualized. Left Atria Left atrial chamber dimension is normal. Right Atria Right atrial chamber dimension is normal. Aortic Valve The aortic valve is trileaflet. Pulmonic Valve The pulmonic valve is not well visualized. Mitral Valve The mitral valve has normal leaflets. Tricuspid Valve The tricuspid valve leaflets are normal. Pericardium/Pleural The pericardium appears normal. Aorta The aortic root size at the sinus of Valsalva is normal. Left Ventricular Outflow Tract Name Value Normal LVOT 2D LVOT Diameter 1.98 cm LVOT Doppler LVOT Peak Gradient 2 mmHg LVOT Mean Gradient 1 mmHg LVOT VTI 9.00 cm LVOT VTI/AV VTI Ratio 0.67 LVOT Stroke Volume 27.73 ml LVOT CO 2.37 l/min LVOT CI 0.90 L/min/m2 Pulmonic Valve Name Value Normal PV Doppler PV Peak Gradient 5 mmHg Mitral Valve Name Value Normal MV Doppler MV Decel Robertson 305.48 cm/s2 MV PHT 0
[2019-09-17 02:46] LABS: Glucose Point of Care > 500 (65-105)
[2019-09-17] MEDS: INSULIN HUMAN REGULAR (*BKC) 100 UNITS/ML 14 UNITS IV PUSH (02:52)
[2019-09-17] MEDS: INSULIN HUMAN REGULAR (*BKC) 100 UNITS in SODIUM CHLORIDE 0.9% IV 99 ML 23.6 UNITS IV CONT (02:58)
[2019-09-17 03:44] LABS: Glucose Point of Care > 500 (65-105)
[2019-09-17] MEDS: SODIUM CHLORIDE 0.9% IV 1,000 ML 150 ML IV CONT (04:00)
--- NOTE | 2019-09-17 04:01 | PC.NURSE ---
This patient, Zheng Carrizales, was admitted to Intensive Care Unit-3. Patient/family oriented to hospital policies and general routines including ID bracelet, bed and alarms, visiting hours, pain management, procedures, bathroom and other care routines, personal items, smoking policy, room service/diet, and visiting hours. Valuables list has been completed. Information on how to activate the Rapid Response Team has been discussed. Patient/Family are encouraged to report perceived risks to care and to ask questions if they do not understand what they are told or what they should do.
[2019-09-17 04:13] LABS: Basophils Percent Auto 0.2 % (0.2-1.2); Hematocrit 47.5 % (42.0-52.0); Hemoglobin 15.5 g/dL (14.0-18.0); Immature Granulocyte Absolute 0.19 K/mm3 (0.00-0.031); Immature Granulocyte Percent A 1.7 % (0-0.5); Lymphocytes Percent Auto 7.9 % (18.3-44.2); Mean Corpuscular HGB Conc 32.6 g/dl (32-36); Mean Corpuscular Hemoglobin 29.7 pg (26-34); Mean Platelet Volume 11.5 fl (7.4-10.4); Monocytes Absolute Auto 0.2 K/mm3 (0.1-0.6); Monocytes Percent Auto 1.9 % (2.6-8.5); Neutrophils Percent Auto 88.3 % (45.5-73.1); Platelet Count Result 186 k/mm3 (150-375); Red Blood Count 5.22 M/mm3 (4.6-6.20); Red Cell Distribution Width 19.9 % (11.5-14.5); White Blood Count 11.4 K/mm3 (4.5-10.0)
[2019-09-17 04:30] LABS: Blood Urea Nitrogen 46 mg/dL (9-20); Calcium 9.4 mg/dL (8.4-10.2); Carbon Dioxide 16 mmol/L (22-30); Chloride 103 mmol/L (98-107); Estimated CRCL calculation 70 ml/min; Estimated Glomerular Filt Rate 43; Sodium 142 mmol/L (137-145)
[2019-09-17 04:37] LABS: Troponin I < 0.012 ng/mL (0.000-0.034)
[2019-09-17 04:40] LABS: Glucose 723 mg/dL (75-110)
[2019-09-17 05:42] LABS: Alveolar/Arterial O2 Gradient 20.5 mmHg; Base Excess ABG -6.2 mEq/l (+/-2.0); Fractional Inspired Oxygen 21 %; HCO3 ABG 17.8 mEq/l (22.0-26.0); Oxygen Content ABG 22.2 %vol (16.0-22.0); Oxygen Saturation ABG 96.8 % (95.0-100.0); Oxyhemoglobin 95.5 % THb (90.0-100.0); PCO2 ABG 31.9 mmHg (35.0-45.0); PO2 FiO2 Ratio Arterial Blood 4.33 %; Total Hemoglobin 16.5 g/dL (12.0-18.0); pH ABG 7.365 (7.350-7.450)
[2019-09-17 05:43] LABS: Site Drawn RIGHT RADIAL
[2019-09-17 05:44] LABS: Device ROOM AIR; Modified Allen's Test Pass
[2019-09-17 05:54] LABS: Glucose Point of Care 480 (65-105)
[2019-09-17 06:49] LABS: Glucose Point of Care 313 (65-105)
[2019-09-17] MEDS: INSULIN HUMAN REGULAR (*BKC) 100 UNITS in SODIUM CHLORIDE 0.9% IV 99 ML 12.7 UNITS IV CONT (06:55)
[2019-09-17 07:51] LABS: Glucose Point of Care 239 (65-105)
[2019-09-17] MEDS: KCL 20 MEQ/D5/0.45% SOD CHL 1,000 ML 150 ML IV CONT (08:25)
[2019-09-17 08:52] LABS: Glucose Point of Care 229 (65-105)
[2019-09-17] MEDS: PERFLUTREN LIPID MICROSPHERES 1.5 ML VIAL DILUTED TO 10 ML TOTAL VOLUME IV PUSH (09:08)
[2019-09-17] MEDS: NYSTATIN 100,000 UNITS/ML SUSP 5 ML ORAL.SUSP PO ×4 (09:18→20:03)
[2019-09-17 09:49] LABS: Glucose Point of Care 240 (65-105)
[2019-09-17 10:15] LABS: Blood Urea Nitrogen 47 mg/dL (9-20); Calcium 9.8 mg/dL (8.4-10.2); Carbon Dioxide 29 mmol/L (22-30); Chloride 107 mmol/L (98-107); Estimated CRCL calculation 79 ml/min; Estimated Glomerular Filt Rate 49; Glucose 226 mg/dL (75-110); Potassium 4.3 mmol/L (3.4-5.0); Sodium 147 mmol/L (137-145)
[2019-09-17 10:28] LABS: Triglycerides 799 mg/dL (<150)
[2019-09-17 10:59] LABS: Glucose Point of Care 202 (65-105)
--- NOTE | 2019-09-17 11:19 | WPDCNINT ---
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 overnight patient's anion gap has closed but patient still on very high dose of insulin infusion at 14 units per hour. Patient also has elevated triglyceride levels.. Will continue IV fluids and IV insulin infusion at this time. Pending HgbA1c. Diabetic education. (2) Atrial fibrillation with RVR: Code(s): I48.91 - Unspecified atrial fibrillation Status: Acute Assessment and Plan: New onset atrial fibrillation w/ RVR likely secondary to acute DKA. The patient will receive IV bolus saline therapy. patient is on diltiazem infusion for rate control. Check TSH w/ reflex T4 Echocardiogram done and report pending. patient seen by Cardiology this morning. The patient does not want to be anticoagulated as he is still being treated with steroids for his hemolytic anemia which was severe. Start aspirin (3) Pancreatitis: Code(s): K85.90 - Acute pancreatitis without necrosis or infection, unspecified Status: Acute Assessment and Plan: likely secondary to hypertriglyceridemia. CT abdomen and pelvis reviewed and did not show any gallstone. NPO at this time. will advance diet slowly (4) Hypertriglyceridemia: Code(s): E78.1 - Pure hyperglyceridemia Status: Acute Assessment and Plan: IV fluids and IV insulin infusion. Monitor triglyceride levels. TSH. Start fenofibrate check fasting lipid profile (5) Acute renal failure: Qualifiers: Acute renal failure type: unspecified Qualified Code(s): N17.9 - Acute kidney failure, unspecified Code(s): N17.9 - Acute kidney failure, unspecified Status: Acute Assessment and Plan: Secondary to acute dehydration and hypertension. creatinine improved.Continue IV fluids . Monitor renal function and urine output. Renally dose medications. Avoid nephrotoxic agents. Check CK (6) Hyperkalemia: Code(s): E87.5 - Hyperkalemia Status: Acute Assessment and Plan: Secondary to acute DKA, LEONEL and metabolic acidosis. level normalized after treatment with IV fluids. Monitor (7) Thrush: Code(s): B37.0 - Candidal stomatitis Status: Acute Assessment and Plan: Likely secondary to steroid therapy - Continue Nystatin swish and swallow. Additional Plan DVT prophylaxis - SCD Stress ulcer prophylaxis - NA Nutrition - NPO Code Status - Full Code Valve And Regulator Repairer Consult Note Consult date: 09/17/19 Time Seen: 11:00 HPI: Zheng Carrizales is a 34 year old morbidly obese male who had recent admission for which he was treated for acute renal failure, sepsis, and pneumonia presented to the hospital yesterday with a complaint of elevated blood sugars. On last admission patient was diagnosed with severe anemia related to hemolytic anemia which required multiple blood transfusions. patient was discharged on steroids which he continues to take and most recent dose of 60 mg every day. Patient developed lower extremity edema which was thought to be secondary to some steroids and patient was prescribed with furosemide as an outpatient. Over last few days patient continued to have urinary frequency polyuria polydipsia. He also had shortness of breath on minimal exertion and palpitations associated with it. He did not report any chest pain. He also noticed worsening blurry vision over the past couple of days. He checked his blood sugar at home and His blood sugar reading was high and he decided to come to the [facility]
--- NOTE | 2019-09-17 11:38 | PM.CNCAR ---
Assessment and Plan Additional Plan 34-year-old gentleman with Previously unrecognized atrial fibrillation. His AFib is technically speaking of unknown chronicity since he did read the present to the hospital primarily because of his cardiac rhythm symptoms. He does have symptoms that make me suspicious that he has been in atrial fibrillation since shortly after the most recent hospitalization a few weeks ago. I do not see any ECGs on the chart from that hospitalization which would document his cardiac rhythm. At this time I would recommend initiating systemic anticoagulation with apixaban. One would hope that this young man will not be found to have structural cardiac disease and will not need to be committed to anticoagulation for the long-term but at this time I would anticoagulate him particularly since it is our anticipation to attempt to cardiovert him at some point I would start oral beta-dipti therapy in the form of metoprolol and wean the IV diltiazem as tolerated keeping his heart rate under control. The echocardiogram will be reviewed. If the beta-dipti therapy is initiated it is possible that he may convert to sinus rhythm on his own. If he is hemodynamically stable the options of elective cardioversion after appropriate time of systemic anticoagulation versus MARK/cardioversion during this hospitalization will need to be determined Diony Vieira MD [facility] History of Present Illness History of Present Illness Consult date/time: Date of service: 09/17/19 11:38 Consult reason: atrial fibrillation Reason For Visit: Elevated blood sugar today++ Narrative: This is a 34-year-old man I am seeing at the request of the hospitalist for assistance with the management and evaluation of atrial fibrillation. The patient has no history of prior known cardiac problems and is being seen in the ICU. He is a gentleman who was recently in the hospital with a respiratory illness several weeks ago. 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 He was treated with steroids as part of this for the anemia and his hemoglobin which previously was 6 has now normalized. Yesterday the patient states he was at home feeling weak and poorly in general. He has never been known to have diabetes before and his ex- who is diabetic decided to check his glucose and found to be extremely high and for that recent brought him to the emergency department. In the emergency department he was felt to be in a state state of acute diabetic ketoacidosis with a blood glucose level of greater than 1200 he also has significant pancreatitis by laboratory data. He is somnolent [facility] room but he on awakening he does respond to questions appropriately and does not offer any cardiovascular complaints. With respect to his atrial fibrillation he did state that since time of his recent discharge several weeks ago he has noticed the sensation of tachycardia when he is performing normal household activities. He I did not see a physician to have this evaluated. He does not have any symptoms of chest pain shortness of breath orthopnea PND or accumulating edema. In addition to all of the above he is morbidly obese. The patient also during the last hospitalization had acute renal failure his creatinine was as high as 3.0 and with treatment improved. His creatinine is 1.6 at this time. In the emergency room in addition to the DKA he was found to be in atrial fibrillation with a rather rapid ventricular response. He was placed on IV diltiazem and admitted to the ICU for further management. His heart rate is now very well controlled with the diltiazem infusion running. An echocardiogram has been done this morning but as yet has not been interpreted. Review of Systems Constitutional: Constitutional: Reports fatigue and Reports weakness Eyes: Eyes: Reports no additional eye complaints ENT: Reports system reviewed
[2019-09-17 11:54] LABS: Glucose Point of Care 189 (65-105)
[2019-09-17] MEDS: METOPROLOL TARTRATE 50 MG TAB PO ×2 (12:20→20:02)
[2019-09-17] MEDS: FENOFIBRATE 160 MG TABLET PO (12:24)
[2019-09-17] MEDS: ASPIRIN 325 MG TABLET PO (12:24)
[2019-09-17 12:47] LABS: Glucose Point of Care 150 (65-105)
--- NOTE | 2019-09-17 12:58 | ECG_ITS ---
Measurements Intervals [place] Rate: 67 P: 36 GA: 202 QRS: 4 QRSD: 100 T: -29 QT: 394 QTc: 418 Interpretive Statements SINUS RHYTHM WITH SINUS ARRHYTHMIA DELAYED PRECORDIAL R/S TRANSITION LOW QRS VOLTAGE IN PRECORDIAL LEADS VOLTAGE CRITERIA FOR LVH ST-T WAVE ABNORMALITY IN ANTEROLAT/INF LEADS- CONSIDER ISCHEMIA ABNORMAL ECG Electronically Signed On 09-17-2019 13:24:02 [employer]IONAL SALES TRAINER by Arcadio Schwab D.O.
[2019-09-17 13:47] LABS: Glucose Point of Care 285 (65-105)
[2019-09-17 13:50] LABS: Blood Urea Nitrogen 44 mg/dL (9-20); Calcium 8.6 mg/dL (8.4-10.2); Carbon Dioxide 26 mmol/L (22-30); Chloride 105 mmol/L (98-107); Estimated CRCL calculation 84 ml/min; Estimated Glomerular Filt Rate 53; Glucose 264 mg/dL (75-110); Potassium 3.8 mmol/L (3.4-5.0); Sodium 143 mmol/L (137-145)
[2019-09-17 14:20] LABS: Creatine Kinase 38 U/L (55-170)
[2019-09-17] MEDS: INSULIN HUMAN REGULAR (*BKC) 100 UNITS in SODIUM CHLORIDE 0.9% IV 99 ML 24.7 UNITS IV CONT (14:48)
[2019-09-17 14:58] LABS: Glucose Point of Care 255 (65-105)
--- NOTE | 2019-09-17 15:11 | PM.IMPN ---
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 Monitor BMP,. HgbA1c 9.6. Diabetic education. (2) Atrial fibrillation with RVR: Code(s): I48.91 - Unspecified atrial fibrillation Status: Acute Assessment and Plan: New onset atrial fibrillation w/ RVR likely secondary to acute DKA. Converted to sinus rhythm spontaneously. Echo was pending. Cardiology recommended beta-dipti and initially anticoagulation which the patient is refusing (3) Thrush: Code(s): B37.0 - Candidal stomatitis Status: Acute Assessment and Plan: Likely secondary to steroid therapy - Continue Nystatin swish and swallow. (4) Leukocytosis: Qualifiers: Leukocytosis type: unspecified Qualified Code(s): D72.829 - Elevated white blood cell count, unspecified Code(s): D72.829 - Elevated white blood cell count, unspecified Status: Acute Assessment and Plan: Likely secondary to recent steroid use and acute DKA. The patient has had signifciant abdominal pain and an elevated lipase but CT scan of the abdomen and pelvis revealed only fatty infiltration of the liver, DKA probably precipitating elevated lipase and abdominal discomfort not pancreatitis (5) Elevated lipase: Code(s): R74.8 - Abnormal levels of other serum enzymes Status: Acute Assessment and Plan: As above CT scan revealed no acute pancreatitis, probably secondary to DKA nausea and vomiting (6) Acute renal failure: Qualifiers: Acute renal failure type: unspecified Qualified Code(s): N17.9 - Acute kidney failure, unspecified Code(s): N17.9 - Acute kidney failure, unspecified Status: Acute Assessment and Plan: Secondary to acute dehydration. Continue IV fluid challeng. Monitor renal function and urine output. Her creatinine at 1.5 now Subjective Date/time seen: 09/17/19 15:11 Interval history: Date of visit 09/17. 34-year-old white male type 2 diabetic with recent hospitalization for hemolytic anemia on prednisone admitted with malaise increased thirst and found to be in diabetic ketoacidosis with atrial fibrillation and rapid ventricular response. With IV insulin his gap has closed and CO2 up to 26 this afternoon He converted to sinus rhythm spontaneously and overall is feeling better complaining of being hungry and thirsty. Exam Narrative: Exam Narrative: Blood pressure 126/100 pulse 66 regular afebrile Pupils equal reactive to light sclera anicteric Lungs clear CV regular rate rhythm now no murmurs Abdomen is soft bowel sounds are present nontender Extremities without edema distal pulses are 2+ Neuro alert no focal deficits Objective Data Vital Signs Vital Signs: Vital Signs - 24 hr 09/16/19 20:40 09/16/19 22:58 09/17/19 03:00 Temperature 36.3 C L Pulse Rate 88 125 H 112 H Respiratory Rate 22 H 24 H 23 H Blood Pressure 136/85 112/87 Pulse Oximetry 100 96 100 09/17/19 04:00 09/17/19 06:00 09/17/19 07:41 Temperature 36.4 C 36.3 C L Pulse Rate 117 H 136 H 114 H Respiratory Rate 27 H 28 H 20 Blood Pressure 122/83 100/77 112/97 H Pulse Oximetry 97 96 97 09/17/19 08:12 09/17/19 09:00 09/17/19 10:00 Temperature Pulse Rate 108 H 95 88 Respiratory Rate 20 24 H Blood Pressure 119/89 126/93 H Pulse Oximetry 98 100 09/17/19 12:00 09/17/19 12:04 09/17/19 12:20 Temperature 36.3 C L Pulse Rate 109 H 102 H 108 H Respiratory Rate 17 Blood Pressure 139/117 H Pulse Ox
[2019-09-17] MEDS: KCL 20 MEQ/D5/0.45% SOD CHL 1,000 ML 100 ML IV CONT (17:32)
[2019-09-17 17:41] LABS: Blood Urea Nitrogen 46 mg/dL (9-20); Calcium 9.2 mg/dL (8.4-10.2); Carbon Dioxide 24 mmol/L (22-30); Chloride 106 mmol/L (98-107); Estimated CRCL calculation 84 ml/min; Estimated Glomerular Filt Rate 53; Glucose 167 mg/dL (75-110); Potassium 3.8 mmol/L (3.4-5.0); Sodium 142 mmol/L (137-145)
--- NOTE | 2019-09-17 17:51 | PC.NURSE ---
Notified Dr Veras of insulin dripp at 9.9 units per hour, blood sugars have been in the 150's, anion gap has been 12 for last two bmp's and pt has received over 150 units in the last 12 hours, Dr. Monten[place]ro said to maintain the insulin dripp per protocol through out the night and he will re-evaluate when he comes in the morning.
[2019-09-17 19:43] LABS: Glucose Point of Care 150 (65-105)
[2019-09-17 19:43] LABS: Glucose Point of Care 160 (65-105)
[2019-09-17 19:43] LABS: Glucose Point of Care 205 (65-105)
[2019-09-17 20:56] LABS: Glucose Point of Care 125 (65-105)
[2019-09-17] MEDS: INSULIN HUMAN REGULAR (*BKC) 100 UNITS in SODIUM CHLORIDE 0.9% IV 99 ML 7.2 UNITS IV CONT (21:49)
[2019-09-17 22:32] LABS: Glucose Point of Care 86 (65-105)
[2019-09-17 22:37] LABS: Blood Urea Nitrogen 46 mg/dL (9-20); Calcium 8.4 mg/dL (8.4-10.2); Carbon Dioxide 28 mmol/L (22-30); Chloride 107 mmol/L (98-107); Estimated CRCL calculation 104 ml/min; Estimated Glomerular Filt Rate > 60; Glucose 86 mg/dL (75-110); Potassium 4.1 mmol/L (3.4-5.0); Sodium 142 mmol/L (137-145)
[2019-09-17 23:46] LABS: Glucose Point of Care 141 (65-105)
[2019-09-18] VITALS (19 sets, daily range): BP systolic 113–139; BP diastolic 77–103; PULSE 60–98; RESP 12–22; TEMP 36.1–36.8; O2SAT 97–100
[2019-09-18 00:50] LABS: Glucose Point of Care 212 (65-105)
[2019-09-18 01:38] LABS: Glucose Point of Care 213 (65-105)
[2019-09-18 02:45] LABS: Glucose Point of Care 209 (65-105)
[2019-09-18] MEDS: KCL 20 MEQ/D5/0.45% SOD CHL 1,000 ML 100 ML IV CONT (02:49)
[2019-09-18 02:50] LABS: Blood Urea Nitrogen 45 mg/dL (9-20); Calcium 8.2 mg/dL (8.4-10.2); Carbon Dioxide 26 mmol/L (22-30); Chloride 104 mmol/L (98-107); Estimated CRCL calculation 96 ml/min; Estimated Glomerular Filt Rate > 60; Glucose 217 mg/dL (75-110); Potassium 3.9 mmol/L (3.4-5.0); Sodium 140 mmol/L (137-145)
[2019-09-18 03:51] LABS: Glucose Point of Care 193 (65-105)
[2019-09-18 04:57] LABS: Glucose Point of Care 192 (65-105)
[2019-09-18 05:49] LABS: Glucose Point of Care 179 (65-105)
[2019-09-18 06:39] LABS: Glucose Point of Care 129 (65-105)
[2019-09-18 07:28] LABS: Cholesterol 170 mg/dL (0-200); HDL Direct 29 mg/dL; Triglycerides 381 mg/dL (<150)
[2019-09-18 07:31] LABS: Alanine Aminotransferase 94 U/L (4-50); Albumin Level 3.2 g/dL (3.5-5.1); Alkaline Phosphatase 69 U/L (38-126); Aspartate Amino Transferase 43 U/L (17-59); Bilirubin,Total 0.4 mg/dL (0.2-1.3); Blood Urea Nitrogen 42 mg/dL (9-20); Calcium 8.7 mg/dL (8.4-10.2); Carbon Dioxide 29 mmol/L (22-30); Chloride 109 mmol/L (98-107); Estimated CRCL calculation 97 ml/min; Estimated Glomerular Filt Rate > 60; Glucose 99 mg/dL (75-110); Lipase 193 U/L (23-300); Magnesium 2.4 mg/dL (1.6-2.3); Sodium 142 mmol/L (137-145)
[2019-09-18 07:37] LABS: Glucose Point of Care 138 (65-105)
[2019-09-18 07:38] LABS: Hematocrit 45.8 % (42.0-52.0); Hemoglobin 14.3 g/dL (14.0-18.0); Mean Corpuscular HGB Conc 31.2 g/dl (32-36); Mean Corpuscular Hemoglobin 29.5 pg (26-34); Mean Corpuscular Volume 94.6 fl (80-100); Mean Platelet Volume 10.8 fl (7.4-10.4); Platelet Count Result 127 k/mm3 (150-375); Red Blood Count 4.84 M/mm3 (4.6-6.20); Red Cell Distribution Width 21.2 % (11.5-14.5); White Blood Count 10.9 K/mm3 (4.5-10.0)
[2019-09-18 07:39] LABS: LDL Cholesterol Direct 105 mg/dL
--- NOTE | 2019-09-18 07:40 | WPDINTPN ---
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 still on high rate of insulin infusion. I will give Lantus and discontinue IV fluids with dextrose but continue insulin infusion this time to maintain glycemic control. Advance diet. Once steady state of insulin infusion is attained, I was transitioned to subcutaneous insulin. Patient also has elevated triglyceride levels which has improved. I will continue IV insulin infusion at this time. HgbA1c 9.6. Diabetic education. (2) Atrial fibrillation with RVR: Code(s): I48.91 - Unspecified atrial fibrillation Status: Acute Assessment and Plan: New onset atrial fibrillation w/ RVR likely secondary to acute DKA. patient was on diltiazem infusion for rate control. patient has now converted to normal sinus rhythm and and diltiazem infusion was discontinue TSH is normal Echocardiogram 1. Left ventricular systolic function is normal, estimated at 60-65%. 2. Definity contrast injected to improve visualization. 3. Technically challenging study because of obesity. 4. Left atrial chamber dimension is normal. 5. Difficult exam but no significant valvular abnormalities were identified. Cardiology this morning. patient seen by cardiology and started on p.o. beta dipti The patient initially did notwant to be anticoagulated as he is still being treated with steroids for his hemolytic anemia which was severe. patient was started on aspirin. . egg sorter recommended anticoagulation and as per recommendation of Cardiology patient is agreeable to anticoagulation and I will start patient on apixaban (3) Pancreatitis: Code(s): K85.90 - Acute pancreatitis without necrosis or infection, unspecified Status: Acute Assessment and Plan: likely secondary to hypertriglyceridemia. CT abdomen and pelvis reviewed and did not show any gallstone. patient denies any abdominal pain nausea vomiting at this time will advance diet (4) Hypertriglyceridemia: Code(s): E78.1 - Pure hyperglyceridemia Status: Acute Assessment and Plan: IV fluids and IV insulin infusion. triglyceride level has decreased. TSH normal. Patient started on fenofibrate Monitor triglyceride levels. check fasting lipid profile (5) Acute renal failure: Qualifiers: Acute renal failure type: unspecified Qualified Code(s): N17.9 - Acute kidney failure, unspecified Code(s): N17.9 - Acute kidney failure, unspecified Status: Acute Assessment and Plan: Secondary to acute dehydration and hypertension. creatinine improved with IV fluids . Monitor renal function and urine output. Avoid nephrotoxic agents. CK level is normal (6) Hyperkalemia: Code(s): E87.5 - Hyperkalemia Status: Acute Assessment and Plan: Secondary to acute DKA, LEONEL and metabolic acidosis. level normalized after treatment with IV fluids. Monitor (7) Thrush: Code(s): B37.0 - Candidal stomatitis Status: Acute Assessment and Plan: Likely secondary to steroid therapy - Continue Nystatin swish and swallow. Additional Plan DVT prophylaxis - apixaban Stress ulcer prophylaxis - NA Nutrition - advance diet Code Status - Full Code transferred to ICU once patient is transitioned to subcutaneous insulin Subjective Date/time seen: 09/18/19 0740 patient feels so-so today. Denies any chest pain shortness of breath abdominal pain. He is eager to eat. He said molly
[2019-09-18] MEDS: INSULIN GLARGINE (*BKC) 100 UNITS/ML 30 UNITS SUB-Q (08:04)
[2019-09-18] MEDS: NYSTATIN 100,000 UNITS/ML SUSP 5 ML ORAL.SUSP PO ×3 (08:07→20:41)
[2019-09-18] MEDS: METOPROLOL TARTRATE 50 MG TAB PO ×2 (08:07→20:40)
[2019-09-18] MEDS: ASPIRIN 325 MG TABLET PO (08:08)
[2019-09-18] MEDS: FENOFIBRATE 160 MG TABLET PO (08:08)
[2019-09-18 08:34] LABS: Glucose Point of Care 129 (65-105)
--- NOTE | 2019-09-18 09:18 | PM.PNCARD ---
Progress Note: A&P Additional Plan Paroxysmal atrial fibrillation, currently in sinus rhythm with metoprolol. Patient anticoagulated with apixaban. Morbid obesity Diabetic ketoacidosis coming under control No change in current management of atrial fibrillation continue to monitor rhythm and follow along with you Time Spent With Patient Time with patient: less than 15 minutes Subjective Date/time seen: Date of service: 09/18/19 09:18 Interval history: Follow-up visit for atrial fibrillation management 34-year-old gentleman with morbid obesity, diabetic ketoacidosis, apparent pancreatitis and in that setting acute onset of atrial fibrillation. Currently in sinus rhythm after beta-dipti therapy has been initiated. Systemically anticoagulated with apixaban. Exam Const: General: comfortable and no acute distress HENMT: Mouth: Yes dry mucous membranes Eyes: Sclera: sclerae normal Pupils: Equal, round and reactive pupils present Neck: Neck: supple Thyroid: thyroid normal Other: Difficult exam because of obesity Resp: Effort & Inspection: normal respiratory effort Other: Breath sounds distant but clear Cardio: Rate: regular rate Rhythm: regular rhythm Skin: General skin exam: normal color Neuro: Cognition (Neuro): normal cognition Objective Data Vital Signs Vital Signs: Vital Signs - 24 hr 09/17/19 10:00 09/17/19 12:00 09/17/19 12:04 Temperature 36.3 C L Pulse Rate 88 109 H 102 H Respiratory Rate 24 H 17 Blood Pressure 126/93 H 139/117 H Pulse Oximetry 100 98 09/17/19 12:20 09/17/19 13:49 09/17/19 14:00 Temperature Pulse Rate 108 H 66 58 L Respiratory Rate 15 Blood Pressure 126/104 H Pulse Oximetry 98 09/17/19 16:00 09/17/19 18:00 09/17/19 19:56 Temperature 36.5 C 36.6 C Pulse Rate 65 62 60 Respiratory Rate 15 16 16 Blood Pressure 116/88 128/82 127/88 Pulse Oximetry 98 99 100 09/17/19 20:00 09/17/19 20:02 09/17/19 21:56 Temperature Pulse Rate 68 65 58 L Respiratory Rate 16 Blood Pressure 133/85 Pulse Oximetry 100 09/17/19 23:59 09/18/19 00:00 09/18/19 02:00 Temperature 36.7 C Pulse Rate 61 60 63 Respiratory Rate 12 15 Blood Pressure 120/89 129/83 Pulse Oximetry 100 100 09/18/19 04:00 09/18/19 05:41 09/18/19 07:41 Temperature 36.6 C Pulse Rate 64 61 69 Respiratory Rate 12 18 15 Blood Pressure 132/94 H 136/95 H 113/93 H Pulse Oximetry 99 99 100 09/18/19 08:00 09/18/19 08:07 Temperature Pulse Rate 74 74 Respiratory Rate 15 Blood Pressure Pulse Oximetry 100 Intake/Output Intake/Output: Intake & Output 09/15/19 09/16/19 09/17/19 09/18/19 23:59 23:59 23:59 23:59 Intake Total 6655 1740 Output Total 1150 500 Balance 5505 1240 Meds/Results Medications: Active Medications Generic Name Dose Route Start Last Admin Trade Name Freq PRN Reason Stop Dose Admin Hydrocodone Bitart/Acetaminophen 1 tab 09/18/19 09:03 [place] 5-325 Mg PO Q4H PRN Pain Rated 4-6 Apixaban 5 mg 09/18/19 09:00 Eliquis PO Q12HR LEROY Aspirin 325 mg 09/18/19 08:00 09/18/19 08:08 Aspirin PO 325 mg DAILY@0800 LEROY Administration Dextrose 12.5 gm 09/17/19 00:59 Dextrose 50% Syringe IV PUSH PRN PRN Hypoglycemia Protocol Fenofibrate 160 mg 09/18/19 09:00 09/18/19 08:08 Fenofibrate PO 160 mg DAILY LEROY Administration Glucagon 1 mg 09/17/19 00:59 Glucagon For Inj IM PRN PRN Hypoglycemia Protocol Glucose 15 gm 09/17/19 00:59 Glutose 15 PO PRN PRN Hypoglycemia Protocol Insulin Aspart 100 units/ 100 mls @ 5.5 mls/hr 09/17/19 01:05 09/18/19 08:21 Sodium Chloride IV CONT 5.5 units/hr .[id number] LEROY 5.5 mls/hr Titration Protocol 5.5 UNITS/HR Dextrose 1,000 mls @ 100 mls/hr 09/17/19 00:59 Dextrose 5% 1,000 Ml IVPB PRN PRN Hypoglycemia Protocol Sodium Chloride 250 mls @ 30 mls/hr
[2019-09-18 10:08] LABS: Glucose Point of Care 190 (65-105)
[2019-09-18] MEDS: APIXABAN 5 MG TABLET PO ×2 (10:14→20:40)
[2019-09-18 11:02] LABS: Glucose Point of Care 158 (65-105)
[2019-09-18 11:16] LABS: Blood Urea Nitrogen 45 mg/dL (9-20); Calcium 8.7 mg/dL (8.4-10.2); Carbon Dioxide 31 mmol/L (22-30); Chloride 107 mmol/L (98-107); Estimated CRCL calculation 84 ml/min; Estimated Glomerular Filt Rate 53; Glucose 148 mg/dL (75-110); Potassium 3.4 mmol/L (3.4-5.0); Sodium 141 mmol/L (137-145)
[2019-09-18] MEDS: INSULIN HUMAN REGULAR (*BKC) 100 UNITS in SODIUM CHLORIDE 0.9% IV 99 ML 7.8 UNITS IV CONT (11:33)
[2019-09-18 12:01] LABS: Glucose Point of Care 122 (65-105)
[2019-09-18 13:05] LABS: Glucose Point of Care 87 (65-105)
--- NOTE | 2019-09-18 13:41 | PM.IMPN ---
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 HgbA1c 9.6. Diabetic education saw 09/17 and instructed on insulin injections (2) Atrial fibrillation with RVR: Code(s): I48.91 - Unspecified atrial fibrillation Status: Acute Assessment and Plan: New onset atrial fibrillation w/ RVR likely secondary to acute DKA. Converted to sinus rhythm spontaneously. Echo normal EF 50-55% . Cardiology recommended beta-dipti and initially anticoagulation which the patient has agreed to now (3) Thrush: Code(s): B37.0 - Candidal stomatitis Status: Acute Assessment and Plan: Likely secondary to steroid therapy - Continue Nystatin swish and swallow. (4) Leukocytosis: Qualifiers: Leukocytosis type: unspecified Qualified Code(s): D72.829 - Elevated white blood cell count, unspecified Code(s): D72.829 - Elevated white blood cell count, unspecified Status: Acute Assessment and Plan: Likely secondary to recent steroid use and acute DKA. The patient has had signifciant abdominal pain and an elevated lipase but CT scan of the abdomen and pelvis revealed only fatty infiltration of the liver, DKA probably precipitating elevated lipase and abdominal discomfort not pancreatitis WBC down to 10/9 today (5) Elevated lipase: Code(s): R74.8 - Abnormal levels of other serum enzymes Status: Acute Assessment and Plan: As above CT scan revealed no acute pancreatitis, probably secondary to DKA nausea and vomiting (6) Acute renal failure: Qualifiers: Acute renal failure type: unspecified Qualified Code(s): N17.9 - Acute kidney failure, unspecified Code(s): N17.9 - Acute kidney failure, unspecified Status: Acute Assessment and Plan: Secondary to acute dehydration. Continue IV fluid challeng. Monitor renal function and urine output. His creatinine at 1.5 now (7) Hypertriglyceridemia: Code(s): E78.1 - Pure hyperglyceridemia Status: Acute Assessment and Plan: down to 381 today with continued IV insulin. Fenofibrate to start today Subjective Date/time seen: 09/18/19 13:41 Interval history: Date of visit . 34-year-old white male type 2 diabetic with recent hospitalization for hemolytic anemia on prednisone admitted with malaise increased thirst and found to be in diabetic ketoacidosis with atrial fibrillation and rapid ventricular response. With IV insulin his gap has closed and CO2 normalized. He converted to sinus rhythm spontaneously and overall is feeling better complaining of being hungry . No nausea or abd pain Exam Narrative: Exam Narrative: Blood pressure 122/76 pulse 66 regular afebrile Pupils equal reactive to light sclera anicteric Lungs clear CV regular rate rhythm now no murmurs Abdomen is soft bowel sounds are present nontender Extremities without edema distal pulses are 2+ Neuro alert no focal deficits Objective Data Vital Signs Vital Signs: Vital Signs - 24 hr 09/17/19 13:49 09/17/19 14:00 09/17/19 16:00 Temperature 36.5 C Pulse Rate 66 58 L 65 Respiratory Rate 15 15 Blood Pressure 126/104 H 116/88 Pulse Oximetry 98 98 09/17/19 18:00 09/17/19 19:56 09/17/19 20:00 Temperature 36.6 C Pulse Rate 62 60 68 Respiratory Rate 16 16 Blood Pressure 128/82 127/88 Pulse Oximetry 99 100 09/17/19 20:02 09/17/19 21:56 09/17/19 23:59 Temperature 36.7 C Pulse Rate 65 58 L 61 Respiratory Rate 16 12 Blood Press
[2019-09-18 14:06] LABS: Glucose Point of Care 168 (65-105)
[2019-09-18 14:58] LABS: Glucose Point of Care 242 (65-105)
[2019-09-18 15:26] LABS: Blood Urea Nitrogen 47 mg/dL (9-20); Calcium 8.2 mg/dL (8.4-10.2); Carbon Dioxide 26 mmol/L (22-30); Chloride 103 mmol/L (98-107); Estimated CRCL calculation 84 ml/min; Estimated Glomerular Filt Rate 53; Glucose 209 mg/dL (75-110); Potassium 3.9 mmol/L (3.4-5.0); Sodium 139 mmol/L (137-145)
[2019-09-18 16:24] LABS: Glucose Point of Care 164 (65-105)
[2019-09-18 17:23] LABS: Glucose Point of Care 129 (65-105)
[2019-09-18 18:23] LABS: Glucose Point of Care 91 (65-105)
[2019-09-18 19:05] LABS: Glucose Point of Care 84 (65-105)
[2019-09-18 19:21] LABS: Blood Urea Nitrogen 46 mg/dL (9-20); Calcium 8.5 mg/dL (8.4-10.2); Carbon Dioxide 28 mmol/L (22-30); Chloride 104 mmol/L (98-107); Estimated CRCL calculation 97 ml/min; Estimated Glomerular Filt Rate > 60; Glucose 86 mg/dL (75-110); Potassium 3.6 mmol/L (3.4-5.0); Sodium 142 mmol/L (137-145)
[2019-09-18 20:06] LABS: Glucose Point of Care 304 (65-105)
[2019-09-18 20:45] LABS: Glucose Point of Care 288 (65-105)
[2019-09-18 22:06] LABS: Glucose Point of Care 194 (65-105)
[2019-09-18] MEDS: INSULIN HUMAN REGULAR (*BKC) 100 UNITS in SODIUM CHLORIDE 0.9% IV 99 ML 20.5 UNITS IV CONT (22:33)
[2019-09-18 22:41] LABS: Glucose Point of Care 100 (65-105)
[2019-09-18] MEDS: GLUCOSE ORAL GEL 15 GM OF GLUCSE IN 37.5 GM TUBE PO (23:44)
[2019-09-19] VITALS (13 sets, daily range): BP systolic 103–143; BP diastolic 63–98; PULSE 70–87; RESP 15–20; TEMP 36.2–36.8; O2SAT 98–100
[2019-09-19 00:08] LABS: Glucose Point of Care 130 (65-105)
[2019-09-19 00:08] LABS: Glucose Point of Care 56 (65-105)
[2019-09-19 01:17] LABS: Glucose Point of Care 243 (65-105)
[2019-09-19 02:10] LABS: Glucose Point of Care 154 (65-105)
[2019-09-19 03:19] LABS: Glucose Point of Care 115 (65-105)
[2019-09-19 04:22] LABS: Glucose Point of Care 100 (65-105)
[2019-09-19 05:19] LABS: Hematocrit 45.6 % (42.0-52.0); Hemoglobin 14.4 g/dL (14.0-18.0); Mean Corpuscular HGB Conc 31.6 g/dl (32-36); Mean Corpuscular Hemoglobin 30.1 pg (26-34); Mean Corpuscular Volume 95.2 fl (80-100); Mean Platelet Volume 11.5 fl (7.4-10.4); Platelet Count Result 139 k/mm3 (150-375); Red Blood Count 4.79 M/mm3 (4.6-6.20); Red Cell Distribution Width 20.5 % (11.5-14.5); White Blood Count 9.2 K/mm3 (4.5-10.0)
[2019-09-19 05:29] LABS: Glucose Point of Care 139 (65-105)
[2019-09-19 05:31] LABS: Alanine Aminotransferase 135 U/L (4-50); Albumin Level 3.5 g/dL (3.5-5.1); Alkaline Phosphatase 100 U/L (38-126); Aspartate Amino Transferase 71 U/L (17-59); Bilirubin,Total 0.5 mg/dL (0.2-1.3); Blood Urea Nitrogen 43 mg/dL (9-20); Calcium 8.5 mg/dL (8.4-10.2); Carbon Dioxide 26 mmol/L (22-30); Chloride 103 mmol/L (98-107); Estimated CRCL calculation 90 ml/min; Estimated Glomerular Filt Rate 57; Glucose 105 mg/dL (75-110); Lipase 280 U/L (23-300); Magnesium 2.3 mg/dL (1.6-2.3); Potassium 3.8 mmol/L (3.4-5.0); Sodium 140 mmol/L (137-145)
[2019-09-19 06:12] LABS: Glucose Point of Care 162 (65-105)
--- NOTE | 2019-09-19 07:50 | WPDINTPN ---
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 I started patient on Lantus yesterday but continued insulin infusion due to hypertriglyceridemia and increase insulin requirement. Diet was advanced and patient tolerated p.o. diet without any issues. I will increase Lantus today and add with meal insulin along with sliding scale. I will discontinue insulin infusion today patient off IV fluids now Patient also has elevated triglyceride levels which has improved. I will continue IV insulin infusion at this time. HgbA1c 9.6. Diabetic education. (2) Atrial fibrillation with RVR: Code(s): I48.91 - Unspecified atrial fibrillation Status: Acute Assessment and Plan: New onset atrial fibrillation w/ RVR likely secondary to acute DKA. patient was on diltiazem infusion for rate control. patient has now converted to normal sinus rhythm and and diltiazem infusion was discontinue TSH is normal Echocardiogram 1. Left ventricular systolic function is normal, estimated at 60-65%. 2. Definity contrast injected to improve visualization. 3. Technically challenging study because of obesity. 4. Left atrial chamber dimension is normal. 5. Difficult exam but no significant valvular abnormalities were identified. Cardiology this morning. patient seen by cardiology and started on p.o. beta dipti The patient initially did notwant to be anticoagulated as he is still being treated with steroids for his hemolytic anemia which was severe. patient was started on aspirin. . 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 I discussed case with Cardiology and Dr. Vieira wants to continue anticoagulation for at least 1 month and follow up patient as an outpatient for before making further decision (3) Pancreatitis: Code(s): K85.90 - Acute pancreatitis without necrosis or infection, unspecified Status: Acute Assessment and Plan: likely secondary to hypertriglyceridemia. CT abdomen and pelvis reviewed and did not show any gallstone. patient denies any abdominal pain nausea vomiting at this time and tolerating p.o. diet without any issues. Lipase level has normalized. (4) Hypertriglyceridemia: Code(s): E78.1 - Pure hyperglyceridemia Status: Acute Assessment and Plan: Patient was on IV fluids and IV insulin infusion. Triglyceride level has decreased. TSH normal. transition to subcutaneous insulin. Patient started on fenofibrate Monitor triglyceride levels. Reviewed fasting lipid profile (5) Acute renal failure: Qualifiers: Acute renal failure type: unspecified Qualified Code(s): N17.9 - Acute kidney failure, unspecified Code(s): N17.9 - Acute kidney failure, unspecified Status: Acute Assessment and Plan: Secondary to acute dehydration and hypertension. creatinine improved with IV fluids . Monitor renal function and urine output. Avoid nephrotoxic agents. CK level is normal (6) Hyperkalemia: Code(s): E87.5 - Hyperkalemia Status: Acute Assessment and Plan: Secondary to acute DKA, LEONEL and metabolic acidosis. level normalized after treatment with IV fluids. Monitor (7) Thrush: Code(s): B37.0 - Candidal stomatitis Status: Acute Assessment and Plan: Likely secondary to steroid therapy - Continue Nystatin swish and
[2019-09-19] MEDS: INSULIN GLARGINE (*BKC) 100 UNITS/ML 60 UNITS SUB-Q (08:14)
[2019-09-19] MEDS: NYSTATIN 100,000 UNITS/ML SUSP 5 ML ORAL.SUSP PO ×4 (08:16→20:28)
[2019-09-19] MEDS: APIXABAN 5 MG TABLET PO ×2 (08:16→20:27)
[2019-09-19] MEDS: FENOFIBRATE 160 MG TABLET PO (08:17)
[2019-09-19] MEDS: METOPROLOL TARTRATE 50 MG TAB PO ×2 (08:17→20:27)
[2019-09-19 08:31] LABS: Glucose Point of Care 78 (65-105)
[2019-09-19 08:31] LABS: Glucose Point of Care 106 (65-105)
[2019-09-19 09:37] LABS: Glucose Point of Care 217 (65-105)
[2019-09-19] MEDS: INSULIN ASPART (*BKC) 100 UNITS/ML 7 UNITS SUB-Q ×3 (09:38→16:44)
--- NOTE | 2019-09-19 10:10 | PC.NURSE ---
This patient, Zheng Carrizales, was received from IMU on 09/19/19 at 1010. Personal belongings list checked and signed. Patient/family oriented to unit policies and routines
[2019-09-19 12:32] LABS: Glucose Point of Care 199 (65-105)
--- NOTE | 2019-09-19 13:33 | PM.PNCARD ---
Progress Note: A&P Additional Plan Patient with an episode of atrial fibrillation as described above is now on beta-dipti therapy and apixaban. Echocardiogram is somewhat limited in quality because of morbid obesity but did not demonstrate any significant structural cardiac problems. Recommend continue the beta-dipti Recommend continue anticoagulation for about 1 month and then discontinue if he has no recurrences because of his low chads score A discharge tomorrow from my perspective appears to be quite reasonable we will make sure that he has office follow-up scheduled following discharge Subjective Date/time seen: Date of service: 09/19/19 13:33 Interval history: Follow-up visit for atrial fibrillation management 34-year-old gentleman with morbid obesity, diabetic ketoacidosis, apparent pancreatitis and in that setting acute onset of atrial fibrillation. Currently in sinus rhythm after beta-dipti therapy has been initiated. Systemically anticoagulated with apixaban. Patient transferred out of the ICU feels well today and hoping to be discharged tomorrow. Exam Const: General: comfortable and no acute distress Other: Morbidly obese white man in no apparent distress a comfortable and cooperative appears to be in good spirits today HENMT: Mouth: Yes moist mucous membranes Eyes: Sclera: sclerae normal Pupils: Equal, round and reactive pupils present Neck: Neck: supple and no JVD Thyroid: thyroid normal Resp: Effort & Inspection: normal respiratory effort Auscultation: clear to auscultation bilaterally Cardio: Rate: regular rate Rhythm: regular rhythm Other: No murmur no gallop GI: Auscultation: normal bowel sounds Skin: General skin exam: normal color Objective Data Vital Signs Vital Signs: Vital Signs - 24 hr 09/18/19 14:00 09/18/19 14:05 09/18/19 16:00 Temperature 36.1 C L Pulse Rate 78 79 66 Respiratory Rate 16 18 Blood Pressure 138/103 H 139/79 Pulse Oximetry 99 99 09/18/19 18:00 09/18/19 20:00 09/18/19 20:15 Temperature 36.8 C Pulse Rate 90 96 87 Respiratory Rate 18 22 H Blood Pressure 136/97 H 129/81 Pulse Oximetry 100 97 09/18/19 20:40 09/18/19 22:00 09/19/19 00:00 Temperature Pulse Rate 81 78 71 Respiratory Rate 16 20 Blood Pressure 134/85 103/63 Pulse Oximetry 99 99 09/19/19 02:00 09/19/19 04:00 09/19/19 04:21 Temperature 36.4 C Pulse Rate 70 80 81 Respiratory Rate 16 16 Blood Pressure 104/77 129/98 H Pulse Oximetry 100 100 09/19/19 06:00 09/19/19 08:00 09/19/19 08:17 Temperature 36.7 C Pulse Rate 78 86 83 Respiratory Rate 16 15 Blood Pressure 132/98 H 132/84 Pulse Oximetry 100 100 Intake/Output Intake/Output: Intake & Output 09/16/19 09/17/19 09/18/19 09/19/19 23:59 23:59 23:59 23:59 Intake Total 6655 2800 120 Output Total 1150 1450 300 Balance 5505 1350 -180 Meds/Results Medications: Active Medications Generic Name Dose Route Start Last Admin Trade Name Freq PRN Reason Stop Dose Admin Hydrocodone Bitart/Acetaminophen 1 tab 09/18/19 09:03 09/19/19 03:18 Cobb 5-325 Mg PO 1 tab Q4H PRN Administration Pain Rated 4-6 Apixaban 5 mg 09/18/19 09:00 09/19/19 08:16 Eliquis PO 5 mg Q12HR LEROY Administration Dextrose 12.5 gm 09/19/19 07:21 Dextrose 50% Syringe IV PUSH PRN PRN Hypoglycemia Protocol Fenofibrate 160 mg 09/18/19 09:00 09/19/19 08:17 Fenofibrate PO 160 mg DAILY LEROY Administration Glucagon 1 mg 09/19/19 07:21 Glucagon For Inj IM PRN PRN Hypoglycemia Protocol Glucose 15 gm 09/19/19 07:21 Glutose 15 PO PRN PRN Hypoglycemia Protocol Dextrose 1,000 mls @ 100 mls/hr 09/19/19 07:21 Dextrose 5% 1,000 Ml IVPB PRN PRN Hypoglycemia Protocol Insulin Aspart 7 units 09/19/19 08:00 09/19/19 12:40 Novolog 0.05 units/kg (7 units) 7 units SUB-Q Administration TIDWM LEROY Insuli
--- NOTE | 2019-09-19 13:44 | PM.IMPN ---
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 HgbA1c 9.6. Diabetic education saw 09/17 and instructed on insulin injections FBS 106 today (2) Atrial fibrillation with RVR: Code(s): I48.91 - Unspecified atrial fibrillation Status: Acute Assessment and Plan: New onset atrial fibrillation w/ RVR likely secondary to acute DKA. Converted to sinus rhythm spontaneously. Echo normal EF 50-55% . Cardiology recommended beta-dipti and initially anticoagulation which the patient has agreed to now (3) Thrush: Code(s): B37.0 - Candidal stomatitis Status: Acute Assessment and Plan: Likely secondary to steroid therapy - Continue Nystatin swish and swallow. (4) Leukocytosis: Qualifiers: Leukocytosis type: unspecified Qualified Code(s): D72.829 - Elevated white blood cell count, unspecified Code(s): D72.829 - Elevated white blood cell count, unspecified Status: Acute Assessment and Plan: Likely secondary to recent steroid use and acute DKA. The patient has had signifciant abdominal pain and an elevated lipase but CT scan of the abdomen and pelvis revealed only fatty infiltration of the liver, DKA probably precipitating elevated lipase and abdominal discomfort not pancreatitis WBC normal today (5) Elevated lipase: Code(s): R74.8 - Abnormal levels of other serum enzymes Status: Acute Assessment and Plan: As above CT scan revealed no acute pancreatitis, probably secondary to DKA nausea and vomiting normal at 268 today (6) Acute renal failure: Qualifiers: Acute renal failure type: unspecified Qualified Code(s): N17.9 - Acute kidney failure, unspecified Code(s): N17.9 - Acute kidney failure, unspecified Status: Acute Assessment and Plan: Secondary to acute dehydration. Continue IV fluid challeng. Monitor renal function and urine output. His creatinine at 1.4 now creatinine was 1.3 when left hospital earlier in year (7) Hypertriglyceridemia: Code(s): E78.1 - Pure hyperglyceridemia Status: Acute Assessment and Plan: . Fenofibrate started Subjective Date/time seen: 09/19/19 13:44 Interval history: Date of visit 09/18. 34-year-old white male type 2 diabetic with recent hospitalization for hemolytic anemia on prednisone admitted with malaise increased thirst and found to be in diabetic ketoacidosis with atrial fibrillation and rapid ventricular response. With IV insulin his gap has closed and CO2 normalized. He converted to sinus rhythm spontaneously and overall is feeling better complaining of being hungry . No nausea or abd pain Exam Narrative: Exam Narrative: Blood pressure 132/84 pulse 80 regular afebrile Pupils equal reactive to light sclera anicteric Lungs clear CV regular rate rhythm now no murmurs Abdomen is soft bowel sounds are present nontender Extremities without edema distal pulses are 2+ Neuro alert no focal deficits Objective Data Vital Signs Vital Signs: Vital Signs - 24 hr 09/18/19 14:00 09/18/19 14:05 09/18/19 16:00 Temperature 36.1 C L Pulse Rate 78 79 66 Respiratory Rate 16 18 Blood Pressure 138/103 H 139/79 Pulse Oximetry 99 99 09/18/19 18:00 09/18/19 20:00 09/18/19 20:15 Temperature 36.8 C Pulse Rate 90 96 87 Respiratory Rate 18 22 H Blood Pressure 136/97 H 129/81 Pulse Oximetry 100 97 09/18/19 20:40 09/18/19 22:00 09/19/19 00:00 Temperature Pulse Rate 81
[2019-09-19 16:21] LABS: Glucose Point of Care 218 (65-105)
[2019-09-19] MEDS: INSULIN ASPART (*BKC) 100 UNITS/ML SUB-Q (16:43)
[2019-09-19 21:01] LABS: Glucose Point of Care 228 (65-105)
[2019-09-20] VITALS: PULSE 68
[2019-09-20 04:00] VITALS: PULSE 72
[2019-09-20 06:00] VITALS: BP 142/76; PULSE 73; RESP 16; TEMP 36.5; O2SAT 98
[2019-09-20 06:21] LABS: Hematocrit 40.4 % (42.0-52.0); Hemoglobin 12.6 g/dL (14.0-18.0); Mean Corpuscular HGB Conc 31.2 g/dl (32-36); Mean Corpuscular Hemoglobin 29.8 pg (26-34); Mean Corpuscular Volume 95.5 fl (80-100); Mean Platelet Volume 11.9 fl (7.4-10.4); Platelet Count Result 94 k/mm3 (150-375); Red Blood Count 4.23 M/mm3 (4.6-6.20); Red Cell Distribution Width 20.4 % (11.5-14.5); White Blood Count 5.6 K/mm3 (4.5-10.0)
[2019-09-20 06:38] LABS: Alanine Aminotransferase 119 U/L (4-50); Albumin Level 2.9 g/dL (3.5-5.1); Alkaline Phosphatase 94 U/L (38-126); Aspartate Amino Transferase 39 U/L (17-59); Bilirubin,Total 0.5 mg/dL (0.2-1.3); Blood Urea Nitrogen 29 mg/dL (9-20); Calcium 8.2 mg/dL (8.4-10.2); Carbon Dioxide 25 mmol/L (22-30); Chloride 105 mmol/L (98-107); Estimated CRCL calculation 113 ml/min; Estimated Glomerular Filt Rate > 60; Glucose 221 mg/dL (75-110); Lipase 190 U/L (23-300); Magnesium 2.3 mg/dL (1.6-2.3); Phosphorus 2.8 mg/dL (2.5-4.5); Potassium 3.4 mmol/L (3.4-5.0); Sodium 140 mmol/L (137-145)
[2019-09-20 07:00] LABS: Glucose Point of Care 225 (65-105)
[2019-09-20] MEDS: INSULIN ASPART (*BKC) 100 UNITS/ML 7 UNITS SUB-Q (07:20)
[2019-09-20] MEDS: INSULIN ASPART (*BKC) 100 UNITS/ML SUB-Q ×2 (07:21→08:13)
[2019-09-20 08:00] VITALS: PULSE 97
[2019-09-20] MEDS: INSULIN GLARGINE (*BKC) 100 UNITS/ML 60 UNITS SUB-Q (08:13)
--- NOTE | 2019-09-20 08:15 | PC.NURSE ---
Patient had scheduled 7 units of Novolog with each with. Administered with DARRICK Calabrese. changed scheduled dose to 10 units of Novolog with each meal. Once time dose of 3 units of Novolog given.
[2019-09-20 08:18] VITALS: PULSE 96
[2019-09-20] MEDS: APIXABAN 5 MG TABLET PO (08:18)
[2019-09-20] MEDS: METOPROLOL TARTRATE 50 MG TAB PO (08:18)
[2019-09-20] MEDS: FENOFIBRATE 160 MG TABLET PO (08:18)
[2019-09-20] MEDS: NYSTATIN 100,000 UNITS/ML SUSP 5 ML ORAL.SUSP PO ×2 (08:18→12:23)
--- NOTE | 2019-09-20 09:51 | PCDIET ---
Nutrition Follow-Up Complete: Nutrition Diagnosis: Altered nutrition related labs related to diabetes mellitus as evidenced by HgbA1C of 9.6%. Nutrition Goals: Diet advancement/tolerance, completion of diet education Goals met. Patient reports tolerating diabetic diet well without c/o. Education completed this date re: carbohydrate counting. Last recorded weight is 136.7 kg which is increased. Bowel Motility: Last documented BM on 09/19/19. Labs Reviewed: Glu (225), BUN (29), Alb (2.9) Meds Noted: Fenofibrate, Novolog, Lantus Additional Notes: Right lower leg ulcer. No other issues noted. Will continue to monitor with new goal of intakes 75% or greater. Nutrition Monitoring and Evaluation: Follow up in 7 days.
[2019-09-20] MEDS: POTASSIUM CHLORIDE 20 MEQ TABLET 40 MEQ PO (10:30)
[2019-09-20 12:00] VITALS: PULSE 77
[2019-09-20 12:00] LABS: Glucose Point of Care 138 (65-105)
[2019-09-20] MEDS: MUPIROCIN 2% OINT 22 GM TUBE 1 APPLIC TOPICAL (12:22)
[2019-09-20] MEDS: SILVERGEL (ELTA) 45 ML 1 APPLIC TOPICAL (12:22)
--- NOTE | 2019-09-20 13:31 | PM.PNCARD ---
Progress Note: A&P Assessment and Plan (1) Atrial fibrillation with RVR: Code(s): I48.91 - Unspecified atrial fibrillation Status: Acute Assessment and Plan: Atrial fibrillation with rapid ventricular response in the setting of diabetic ketoacidosis. Beta-dipti therapy initiated and he converted to sinus rhythm. He is maintaining normal sinus rhythm. He was anticoagulated with apixaban. Continue apixaban 5 mg every 12 hours for at least the next 30 days. Additional Plan OK to discharge from cardiac standpoint See discharge instructions for follow-up Plan discussed with Dr. Vieira 1330 09/20/2019 Subjective Date/time seen: 09/20/19 13:31 Interval history: Follow-up for: atrial fibrillation, morbid obesity, diabetic ketoacidosis, apparent pancreatitis Date of service: 09/20/2019 Subjective: Denied chest discomfort, shortness of breath, lightheadedness or palpitations. Review of Systems Constitutional: Constitutional: Denies fatigue Eyes: Eyes: Denies blurry vision ENT: Reports Normal hearing present Cardiovascular: Cardiovascular: Denies chest pain and Denies palpitations Respiratory: Respiratory: Denies cough and Denies dyspnea Gastrointestinal: Gastrointestinal: Denies nausea and Denies vomiting Genitourinary: Genitourinary: Denies hematuria Musculoskeletal: Musculoskeletal: Denies arthralgias Integumentary/Breasts: Skin/Breast: Denies rash Neurologic: Reports Normal hearing present and Denies weakness Psychiatric: Psychiatric: Denies behavioral changes Endocrine: Endocrine: Denies fatigue, Denies flushing and Denies palpitations Hematologic/Lymphatic: Hematologic/Lymphatic: Denies easy bleeding and Denies easy bruising Exam Const: General: comfortable and no acute distress Other: Ready to go home and get back to work. HENMT: Mouth: Yes moist mucous membranes Eyes: Sclera: sclerae normal Pupils: Equal, round and reactive pupils present Neck: Neck: supple Resp: Effort & Inspection: normal respiratory effort Auscultation: clear to auscultation bilaterally Other: Breath sounds distant but clear Cardio: Rate: regular rate Rhythm: regular rhythm Heart sounds: no murmurs Peripheral pulses: Peripheral pulses 2+ throughout Other: No murmur no gallop GI: Auscultation: normal bowel sounds Skin: General skin exam: normal color Neuro: Cranial nerves: Yes Equal, round and reactive pupils present Cognition (Neuro): normal cognition and abnormal cognition Extrem: General: normal to inspection Psych: Appearance: grossly normal Mental Status: mental status grossly normal Speech and movement: Normal speech and movement present Affect: normal affect Attitude: cooperative Thought process: Normal thought process present Objective Data Vital Signs Vital Signs: Vital Signs - 24 hr 09/19/19 14:00 09/19/19 16:00 09/19/19 20:00 Temperature 36.2 C L Pulse Rate 83 87 86 Respiratory Rate 16 Blood Pressure 143/89 H Pulse Oximetry 98 09/19/19 20:27 09/19/19 22:00 09/20/19 00:00 Temperature 36.8 C Pulse Rate 74 72 68 Respiratory Rate 16 Blood Pressure 107/68 Pulse Oximetry 100 09/20/19 04:00 09/20/19 06:00 09/20/19 08:00 Temperature 36.5 C Pulse Rate 72 73 97 Respiratory Rate 16 Blood Pressure 142/76 H Pulse Oximetry 98 09/20/19 08:18 Temperature Pulse Rate 96 Respiratory Rate Blood Pressure Pulse Oximetry Intake/Output Intake/Output: Intake & Output 09/17/19 09/18/19 09/19/19 09/20/19 23:59 23:59 23:59 23:59 Intake Total 6655 2800 1450 1470 Output Total 1150 4173 417 4119 Balance 5505 1350 1150 -230 Meds/Results Medications: Active Medications Generic Name Dose Route Start Last Admin Trade Name Freq PRN Reason Stop Dose Admin Hydrocodone Bitart/Acetaminophen 1 tab 09/18/19 09:03 09/19/19 03:18 Dixon 5-325 Mg PO 1 tab Q4H PRN Admi
--- NOTE | 2019-09-21 09:10 | PM.DS ---
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 HgbA1c 9.6. Diabetic education saw 09/17 and instructed on insulin injections FBS 221 and 138 bs before noon meal day of discharge on 60 units of lantus daily with 10 units of novolog AC (2) Atrial fibrillation with RVR: Code(s): I48.91 - Unspecified atrial fibrillation Status: Acute Assessment and Plan: New onset atrial fibrillation w/ RVR likely secondary to acute DKA. Converted to sinus rhythm spontaneously. Echo normal EF 50-55% . Cardiology recommended beta-dipti and initially anticoagulation which the patient has agreed to now ,Eliquis 5 bid for 1 month and transition to ASA if remains in SR wth the metoprolol tartrate 50 bid (3) Thrush: Code(s): B37.0 - Candidal stomatitis Status: Acute Assessment and Plan: Likely secondary to steroid therapy - Continue Nystatin swish and swallow. while here (4) Leukocytosis: Qualifiers: Leukocytosis type: unspecified Qualified Code(s): D72.829 - Elevated white blood cell count, unspecified Code(s): D72.829 - Elevated white blood cell count, unspecified Status: Acute Assessment and Plan: Likely secondary to recent steroid use and acute DKA. The patient had signifciant abdominal pain and an elevated lipase but CT scan of the abdomen and pelvis revealed only fatty infiltration of the liver, DKA probably precipitating elevated lipase and abdominal discomfort not pancreatitis WBC returned to normal after rx of DKA (5) Elevated lipase: Code(s): R74.8 - Abnormal levels of other serum enzymes Status: Acute Assessment and Plan: As above CT scan revealed no acute pancreatitis, probably secondary to DKA nausea and vomiting normal at 268 / and tolerating consistent carb diet (6) Acute renal failure: Qualifiers: Acute renal failure type: unspecified Qualified Code(s): N17.9 - Acute kidney failure, unspecified Code(s): N17.9 - Acute kidney failure, unspecified Status: Acute Assessment and Plan: Secondary to acute dehydration. Continue IV fluid challeng. . His creatinine at 1.4 now creatinine was 1.3 when left hospital earlier in year and day of discharge was 1.1 (7) Hypertriglyceridemia: Code(s): E78.1 - Pure hyperglyceridemia Status: Acute Assessment and Plan: . Fenofibrate started (8) Anemia: Qualifiers: Anemia type: acquired or hereditary hemolytic anemia Hemolytic anemia type: acquired, autoimmune, other Qualified Code(s): D59.1 - Other autoimmune hemolytic anemias Code(s): D64.9 - Anemia, unspecified Status: Acute Assessment and Plan: Recent history of auto immune hemolytic anemia. He will continue his taper of his prednisone which is down to 7 mg daily and will follow-up with Dr. Chang as scheduled DS: Summary Hospital Course Hospital Course: 34-year-old white male with recent hospitalization for autoimmune hemolytic anemia on tapering doses of steroids presented with increased thirst nausea and vomiting and found to be in diabetic ketoacidosis. He did have hypertriglyceridemia as well as increase lipase but no evidence of pancreatitis on CT scan. was treated with IV insulin until ketones cleared as well as triglycerides improved. Was transitioned to subcutaneous insulin and p.o. fenofibra
== END 2019-09-20 13:45 | disposition home or self-care (01) | DRG 638 ==
LOC: ANHED 09-17 01:09 → ANHICU 09-17 02:10 → ANH3MEDSUR 09-19 14:34 → ANHICU 09-23 14:06
PROVIDERS: Emergency Medicine; Internal Medicine; Admitting Provider Family Medicine; Emergency Provider Emergency Medicine; PCP Family Medicine; Visit Provider Internal Medicine
DX: E09.10 Drug or chemical induced diabetes mellitus with ketoacidosis without coma (principal); B37.0 Candidal stomatitis; N17.9 Acute kidney failure, unspecified; D59.1 Other autoimmune hemolytic anemias; Z68.41 Body mass index [BMI] 40.0-44.9, adult; I48.91 Unspecified atrial fibrillation; T38.0X5A Adverse effect of glucocorticoids and synthetic analogues, initial encounter; E87.5 Hyperkalemia; D72.829 Elevated white blood cell count, unspecified; E86.0 Dehydration; Z87.891 Personal history of nicotine dependence; E78.1 Pure hyperglyceridemia; E66.01 Morbid (severe) obesity due to excess calories
CPT/HCPCS: 36415; 36600; 74177; 80048; 80053; 80061; 81001; 82010; 82550; 82805; 82948; 83036; 83690; 83735; 84100; 84443; 84478; 84484; 85025; 85027; 85380; 85610; 85730; 87081; 93005; 99285; A9270; C8929; J1815; J3480; J7030; Q9957; Q9967

== ENCOUNTER 2019-10-07 11:55 | Outpatient (RCR) | payer BC, SELFPAY ==
[2019-09-08 09:03] LABS: Hematocrit 41.9 % (42.0-52.0); Hemoglobin 13.4 g/dL (14.0-18.0); Immature Granulocyte Absolute 0.16 K/mm3 (0.00-0.031); Immature Granulocyte Percent A 1.2 % (0-0.5); Lymphocytes Absolute Auto 1.25 K/mm3 (0.9-3.2); Lymphocytes Percent Auto 9.1 % (18.3-44.2); Mean Corpuscular Hemoglobin 29.8 pg (26-34); Mean Corpuscular Volume 93.3 fl (80-100); Mean Platelet Volume 10.4 fl (7.4-10.4); Monocytes Absolute Auto 0.9 K/mm3 (0.1-0.6); Monocytes Percent Auto 6.6 % (2.6-8.5); Neutrophils Absolute Auto 11.4 K/mm3 (1.3-6.7); Neutrophils Percent Auto 83.1 % (45.5-73.1); Platelet Count Result 127 k/mm3 (150-375); Red Blood Count 4.49 M/mm3 (4.6-6.20); Red Cell Distribution Width 22.7 % (11.5-14.5); White Blood Count 13.7 K/mm3 (4.5-10.0)
[2019-09-14 15:35] LABS: Basophils Percent Auto 0.2 % (0.2-1.2); Hematocrit 45.6 % (42.0-52.0); Hemoglobin 14.7 g/dL (14.0-18.0); Immature Granulocyte Absolute 0.24 K/mm3 (0.00-0.031); Immature Granulocyte Percent A 2.4 % (0-0.5); Lymphocytes Absolute Auto 0.77 K/mm3 (0.9-3.2); Lymphocytes Percent Auto 7.7 % (18.3-44.2); Mean Corpuscular HGB Conc 32.2 g/dl (32-36); Mean Corpuscular Hemoglobin 29.7 pg (26-34); Mean Corpuscular Volume 92.1 fl (80-100); Mean Platelet Volume 11.3 fl (7.4-10.4); Monocytes Absolute Auto 0.8 K/mm3 (0.1-0.6); Neutrophils Absolute Auto 8.2 K/mm3 (1.3-6.7); Neutrophils Percent Auto 81.7 % (45.5-73.1); Platelet Count Result 155 k/mm3 (150-375); Red Blood Count 4.95 M/mm3 (4.6-6.20); Red Cell Distribution Width 19.3 % (11.5-14.5)
[2019-10-07 12:10] LABS: Hematocrit 39.7 % (42.0-52.0); Hemoglobin 12.7 g/dL (14.0-18.0); Mean Corpuscular Hemoglobin 30.7 pg (26-34); Mean Corpuscular Volume 95.9 fl (80-100); Mean Platelet Volume 9.8 fl (7.4-10.4); Platelet Count Result 139 k/mm3 (150-375); Red Blood Count 4.14 M/mm3 (4.6-6.20); Red Cell Distribution Width 19.4 % (11.5-14.5); White Blood Count 11.1 K/mm3 (4.5-10.0)
[2019-10-07 12:18] LABS: Atypical Lymphocytes Present; Band Neutrophils Percent 3 % (0-6); Monocytes Absolute Manual 0.88 K/mm3 (0.1-0.90); Monocytes Percent Manual 8 % (3-9); Neutrophils Percent Manual 70 % (46-73); Total Cells Counted 100
[2019-10-07 12:19] LABS: Anisocytosis 1+ (NORMAL)
== END 2019-12-07 23:59 | disposition home or self-care (01) ==
LOC: ANHLAB 11:55
PROVIDERS: PCP Family Medicine; Visit Provider Internal Medicine Hematology & Oncology
DX: D59.9 Acquired hemolytic anemia, unspecified (principal)
CPT/HCPCS: 36415; 85025

== ENCOUNTER 2019-11-03 09:47 | Outpatient (CLI) | payer BC, SELFPAY ==
[2019-11-03 10:29] LABS: Basophils Percent Auto 0.6 % (0.2-1.2); Eosinophils Absolute Auto 0.1 K/mm3 (0-0.3); Eosinophils Percent Auto 1.4 % (0-4.4); Hematocrit 38.8 % (42.0-52.0); Hemoglobin 12.2 g/dL (14.0-18.0); Immature Granulocyte Absolute 0.03 K/mm3 (0.00-0.031); Immature Granulocyte Percent A 0.5 % (0-0.5); Lymphocytes Absolute Auto 1.56 K/mm3 (0.9-3.2); Lymphocytes Percent Auto 24.8 % (18.3-44.2); Mean Corpuscular HGB Conc 31.4 g/dl (32-36); Mean Corpuscular Hemoglobin 29.3 pg (26-34); Mean Corpuscular Volume 93.3 fl (80-100); Mean Platelet Volume 9.6 fl (7.4-10.4); Monocytes Absolute Auto 0.5 K/mm3 (0.1-0.6); Monocytes Percent Auto 7.6 % (2.6-8.5); Neutrophils Absolute Auto 4.1 K/mm3 (1.3-6.7); Neutrophils Percent Auto 65.1 % (45.5-73.1); Platelet Count Result 232 k/mm3 (150-375); Red Blood Count 4.16 M/mm3 (4.6-6.20); Red Cell Distribution Width 15.1 % (11.5-14.5); White Blood Count 6.3 K/mm3 (4.5-10.0)
[2019-11-03 10:34] LABS: Add Urine Microscopic? YES; Appearance Urine Clear (Clear); Bilirubin Urine Negative (Negative); Blood Urine 3+ (Negative); Color Urine Yellow (Yellow); Glucose Urine UA Negative (Negative); Ketones Urine Negative (Negative); Leukocyte Esterase Ur Negative LEU/UL (Negative); Mucus Urine Rare /lpf; Nitrate Urine Negative (Negative); Protein Urine 1+ mg/dL (Negative); RBC Urine 21-50 /hpf (0-2); Specific Grav Ur 1.016 (1.001-1.035); Squamous Epithelial Cell Urine Rare /hpf (Few); Urobilinogen Urine Negative mg/dL (<2.0); WBC Urine 0-3 /hpf
[2019-11-03 10:40] LABS: Hemoglobin A1C 7.1 % (<5.7)
[2019-11-03 10:46] LABS: Alanine Aminotransferase 35 U/L (4-50); Albumin Level 3.7 g/dL (3.5-5.1); Alkaline Phosphatase 48 U/L (38-126); Aspartate Amino Transferase 31 U/L (17-59); Bilirubin,Total 0.5 mg/dL (0.2-1.3); Blood Urea Nitrogen 10 mg/dL (9-20); Calcium 8.7 mg/dL (8.4-10.2); Carbon Dioxide 28 mmol/L (22-30); Chloride 108 mmol/L (98-107); Cholesterol 135 mg/dL (0-200); Estimated Glomerular Filt Rate > 60; Glucose 84 mg/dL (75-110); HDL Direct 30 mg/dL; Potassium 3.4 mmol/L (3.4-5.0); Sodium 140 mmol/L (137-145); Triglycerides 100 mg/dL (<150)
[2019-11-03 10:53] LABS: NT Pro B Type Natriuretic Pept 141 PG/ML (5-100)
[2019-11-03 10:57] LABS: LDL Cholesterol Direct 88 mg/dL
[2019-11-03 11:24] LABS: HIV 1/2 Ab P24 Ag Result Negative (Negative)
[2019-11-03 11:27] LABS: Vitamin D 25 Hydroxy 20.9 ng/mL
[2019-11-04 09:49] LABS: Free T4 Free Thyroxine Reflex 1.08 ng/dL (0.78-2.19)
[2019-11-04 10:45] LABS: Total Triiodothyronine (T3) 1.29 NG/ML (0.97-1.69)
== END 2019-11-03 09:48 | disposition home or self-care (01) ==
LOC: ANHLAB 09:50
PROVIDERS: PCP Family Medicine; Visit Provider Family Medicine
DX: Z00.01 Encounter for general adult medical examination with abnormal findings (principal); R60.9 Edema, unspecified; E66.01 Morbid (severe) obesity due to excess calories; Z13.9 Encounter for screening, unspecified; B37.0 Candidal stomatitis; N17.9 Acute kidney failure, unspecified
CPT/HCPCS: 36415; 80053; 80061; 81001; 82306; 83036; 83735; 83880; 84439; 84443; 84480; 85025; 86038; 86703; G0432

== ENCOUNTER 2019-11-09 13:38 | Outpatient (CLI) | payer BC, SELFPAY ==
[2019-11-09 14:06] LABS: Basophils Absolute Auto 0.1 K/mm3 (0.0-0.1); Basophils Percent Auto 0.6 % (0.2-1.2); Eosinophils Absolute Auto 0.1 K/mm3 (0-0.3); Eosinophils Percent Auto 1.8 % (0-4.4); Hematocrit 41.5 % (42.0-52.0); Hemoglobin 12.8 g/dL (14.0-18.0); Immature Granulocyte Absolute 0.04 K/mm3 (0.00-0.031); Immature Granulocyte Percent A 0.5 % (0-0.5); Lymphocytes Absolute Auto 2.17 K/mm3 (0.9-3.2); Lymphocytes Percent Auto 27.2 % (18.3-44.2); Mean Corpuscular HGB Conc 30.8 g/dl (32-36); Mean Corpuscular Hemoglobin 29.4 pg (26-34); Mean Corpuscular Volume 95.2 fl (80-100); Mean Platelet Volume 10.1 fl (7.4-10.4); Monocytes Absolute Auto 0.7 K/mm3 (0.1-0.6); Monocytes Percent Auto 8.9 % (2.6-8.5); Neutrophils Absolute Auto 4.9 K/mm3 (1.3-6.7); Platelet Count Result 227 k/mm3 (150-375); Red Blood Count 4.36 M/mm3 (4.6-6.20); Red Cell Distribution Width 14.6 % (11.5-14.5)
== END 2019-11-09 13:39 | disposition home or self-care (01) ==
LOC: ANHLAB 13:39
PROVIDERS: PCP Family Medicine; Visit Provider Internal Medicine Hematology & Oncology
DX: D59.9 Acquired hemolytic anemia, unspecified (principal)
CPT/HCPCS: 36415; 85025

== ENCOUNTER 2020-05-11 11:54 | Outpatient (CLI) | payer BC, SELFPAY ==
[2020-05-11 12:41] LABS: Basophils Percent Auto 0.4 % (0.2-1.2); Eosinophils Absolute Auto 0.1 K/mm3 (0-0.3); Eosinophils Percent Auto 1.2 % (0-4.4); Hematocrit 44.4 % (42.0-52.0); Hemoglobin 13.9 g/dL (14.0-18.0); Immature Granulocyte Absolute 0.02 K/mm3 (0.00-0.031); Immature Granulocyte Percent A 0.3 % (0-0.5); Lymphocytes Absolute Auto 1.94 K/mm3 (0.9-3.2); Lymphocytes Percent Auto 26.2 % (18.3-44.2); Mean Corpuscular HGB Conc 31.3 g/dl (32-36); Mean Corpuscular Hemoglobin 25.8 pg (26-34); Mean Corpuscular Volume 82.5 fl (80-100); Mean Platelet Volume 10.3 fl (7.4-10.4); Monocytes Absolute Auto 0.5 K/mm3 (0.1-0.6); Monocytes Percent Auto 6.1 % (2.6-8.5); Neutrophils Absolute Auto 4.9 K/mm3 (1.3-6.7); Neutrophils Percent Auto 65.8 % (45.5-73.1); Platelet Count Result 208 k/mm3 (150-375); Red Blood Count 5.38 M/mm3 (4.6-6.20); Red Cell Distribution Width 15.2 % (11.5-14.5); White Blood Count 7.4 K/mm3 (4.5-10.0)
[2020-05-11 12:45] LABS: Add Urine Microscopic? YES; Appearance Urine Clear (Clear); Bilirubin Urine Negative (Negative); Blood Urine 2+ (Negative); Color Urine Yellow (Yellow); Glucose Urine UA Negative (Negative); Ketones Urine Negative (Negative); Leukocyte Esterase Ur Negative LEU/UL (NEGATIVE); Mucus Urine Rare /lpf; Nitrate Urine Negative (Negative); Protein Urine Negative (Negative); RBC Urine 0-2 /hpf (0-2); Specific Grav Ur 1.017 (1.001-1.035); Squamous Epithelial Cell Urine Rare /hpf (Few); Urobilinogen Urine Negative mg/dL (<2.0); WBC Urine 0-3 /hpf (0-3)
[2020-05-11 12:58] LABS: Hemoglobin A1C 5.4 % (<5.7)
[2020-05-11 13:40] LABS: Creatinine Urine 114.8 mg/dL
[2020-05-11 13:44] LABS: MALB Creatinine Ratio 68.1 mg/g (0-30); Microalbumin Urine Random 78.2 mg/L (0-16.7)
== END 2020-05-11 11:55 | disposition home or self-care (01) ==
PROVIDERS: PCP Family Medicine; Visit Provider Family Medicine
DX: D64.9 Anemia, unspecified (principal); E11.9 Type 2 diabetes mellitus without complications; R31.21 Asymptomatic microscopic hematuria
CPT/HCPCS: 36415; 81001; 82043; 83036; 85025; 88108

== ENCOUNTER → 2021-05-30 08:57 | Outpatient (CLI) | payer BC, SELFPAY ==
[2021-05-30 18:11] LABS: SARS-CoV-2 RNA PCR Negative
== END ==
PROVIDERS: PCP Family Medicine; Visit Provider Family Medicine
DX: R50.9 Fever, unspecified (principal); Z20.822 Contact with and (suspected) exposure to COVID-19
CPT/HCPCS: C9803; U0003; U0005

== ENCOUNTER 2021-08-31 02:25 | Emergency (ER) | payer BC, SELFPAY ==
--- NOTE | ~2021-08-31 | CT_ITS ---
EXAMINATION: CT abdomen pelvis wo con DATE: 08/31/2021 04:36 INDICATION: Bilateral flank pain. Hematuria. TECHNIQUE: Computed tomography (CT) of the abdomen and pelvis was performed without intravenous contr ast. Automated exposure control and iterative reconstruction technique were employed. The dose-length product was 1698.77 mGy-cm. COMPARISON: 09/17/2019 FINDINGS: Lung bases are clear. Heart size is normal. No pericardial or pleural effusion. Diffuse hepatic steat osis with focal sparing along the gallbladder fossa. Gallbladder, spleen, pancreas and bilateral adre nal glands are normal. Kidneys and ureters are normal with no urolithiasis, hydroureteronephrosis or perinephric/ureteral stranding. Bladder is normal. 9.1 x 8.2 x 6.4 cm fat-containing supraumbilical v entral hernia which extends through an os measuring 3.2 x 2.4 cm. There is mild stranding in the fat at and immediately deep to the os. There is an additional tiny fat-containing umbilical hernia. Bowel s including the appendix are normal. No free intraperitoneal gas or fluid. No pathologically enlarged abdominal or pelvic lymphadenopathy. Osteonecrosis without collapse of the articular surfaces at the anterosuperior aspect of the bilateral femoral heads. IMPRESSION: 1. No urolithiasis or other acute intra-abdominal/pelvic process. 2. Increase in size of a now moderate-sized fat-containing ventral hernia and unchanged tiny fat-cont aining umbilical hernia. 3. Diffuse hepatic steatosis. 4. Osteonecrosis at the bilateral femoral heads. Reviewed, dictated and finalized at location A. EN TACKER IMPRESSION: 1. No urolithiasis or other acute intra-abdominal/pelvic process. 2. Increase in size of a now moderate-sized fat-containing ventral hernia and u nchanged tiny fat-containing umbilical hernia. 3. Diffuse hepatic steatosis. 4. Osteonecrosis at the bilateral femoral heads.
[2021-08-31 02:42] VITALS: BP 147/80; PULSE 104; RESP 18; TEMP 36.3; O2SAT 97
--- NOTE | 2021-08-31 04:29 | ED.MALEGU ---
HPI - Male Genitourinary General Chief complaint: Urogenital-Male Stated complaint: hematuria Time Seen by Provider: 08/31/21 03:46 Source: patient History of Present Illness HPI Narrative: Patient presents with increased urinary frequency and hematuria. Reports that symptoms for the past 2 weeks he was seen by his primary care doctor the doctor about trying antibiotics however patient declined his symptoms appear to be worse he came to the ER for evaluation. He is also reporting bilateral flank pain over this time period. Reports he had symptoms like this couple years ago and seemed to resolve on its own Related Data Allergies Allergy/AdvReac Type Severity Reaction Status Date / Time peanut Allergy Unknown Itching Verified 08/31/21 03:05 Review of Systems Review of Systems: CONSTITUTIONAL: Denies fever, chills, or sweats. EYES: Denies visual changes, redness, or discharge. ENT: Denies rhinorrhea, congestion, sore throat, or otalgia. CARDIOVASCULAR: Denies chest pain, palpitations, or edema. RESPIRATORY: Denies cough or dyspnea. GASTROINTESTINAL: Denies abdominal pain, nausea, vomiting, or diarrhea. GENITOURINARY: Denies dysuria or hematuria. SKIN: Denies rash or itching. MUSCULOSKELETAL: Denies back pain, joint pain, or myalgia. NEUROLOGIC: Denies headache, numbness, dizziness, or weakness. PSYCHIATRIC: Denies anxiety or depression. [facility] Past Medical History Medical History (Updated 08/31/21 @ 07:58 by Kaveh Cid MD) Autoimmune hemolytic anemia Pneumonia Sepsis UTI (urinary tract infection) Surgical History Surgical History H/O vasectomy Family History Family History Mother Skin cancer Social History Social History Social History: Patient quit smoking about 5 years ago after smoking a pack a day for about 12 years. He denies alcohol or drug use. Lives at home with his 2 sons. He is . Children currently staying with his ex-. Patient is a full code. He nominates his ex- Karla be the individual would make medical decisions for him if he is unable. Smoking packs per day: 1 Smoking cigarettes per day: 20.0 Years smoked: 12 Smoking pack-years: 12.00 Smoking status: Former smoker Tobacco type: cigarettes Smoking end date: 08/04/14 Alcohol intake: never Drinks per week: 0 Substance use: never Gender identity (if verbalized by the patient): Male Spiritual care concerns: No Agree to blood products: Yes Exam Narrative: GENERAL: Well-appearing, well-nourished, and in no acute distress. HEAD: Normocephalic, atraumatic. EYES: PERRLA and EOMI. ENT: Nares clear, no rhinorrhea or epistaxis. Mucous membranes moist. NECK: Supple. No masses. No JVD ABDOMEN: Soft, nontender, nondistended, normal active bowel sounds. EXTREMITIES: Normal range of motion. No edema. SKIN: Warm, dry, no rash. NEURO: No focal deficits. Alert and oriented x3. PSYCH: Normal mood and affect. Course Reevaluation(s) Reevaluation #1: Patient resting comfortably easily awoke results and plan reviewed with patient. Patient is comfortable outpatient plan. Date: 08/31/21 Time: 07:55 Vital Signs Vital signs: Vital Signs Temperature 36.3 C L 08/31/21 02:42 Pulse Rate 104 H 08/31/21 02:42 Respiratory Rate 18 08/31/21 02:42 Blood Pressure 147/80 H 08/31/21 02:42 Pulse Oximetry 97 08/31/21 02:42 Temperature 36.3 C L 08/31/21 02:42 Pulse Rate 98 08/31/21 07:09 Respiratory Rate 16 08/31/21 07:09 Blood Pressure 150/69 H 08/31/21 07:09 Pulse Oximetry 97 08/31/21 07:09 MDM - Male Genitourinary MDM Narrative Medical decision making narrative: H&P as above, vss, pt looks clinically well, exam without abdominal pain, labs with mesha hematuria, img without clear etiology of hematuria, additional labs/img
[2021-08-31] MEDS: SODIUM CHLORIDE 0.9% IV 1,000 ML 999 ML IV CONT (04:47)
[2021-08-31 04:59] LABS: Basophils Percent Auto 0.4 % (0.2-1.2); Eosinophils Absolute Auto 0.1 K/mm3 (0-0.3); Eosinophils Percent Auto 0.9 % (0-4.4); Hematocrit 37.6 % (42.0-52.0); Immature Granulocyte Absolute 0.03 K/mm3 (0.00-0.031); Immature Granulocyte Percent A 0.4 % (0-0.5); Lymphocytes Absolute Auto 1.33 K/mm3 (0.9-3.2); Lymphocytes Percent Auto 19.3 % (18.3-44.2); Mean Corpuscular HGB Conc 31.9 g/dl (32-36); Mean Corpuscular Hemoglobin 27.3 pg (26-34); Mean Corpuscular Volume 85.5 fl (80-100); Mean Platelet Volume 10.1 fl (7.4-10.4); Monocytes Absolute Auto 0.8 K/mm3 (0.1-0.6); Monocytes Percent Auto 11.6 % (2.6-8.5); Neutrophils Absolute Auto 4.7 K/mm3 (1.3-6.7); Neutrophils Percent Auto 67.4 % (45.5-73.1); Platelet Count Result 169 k/mm3 (150-375); Red Cell Distribution Width 14.4 % (11.5-14.5); White Blood Count 6.9 K/mm3 (4.5-10.0)
[2021-08-31 05:21] LABS: Alanine Aminotransferase 14 U/L (4-50); Albumin Level 3.2 g/dL (3.5-5.1); Alkaline Phosphatase 55 U/L (38-126); Anion Gap 8 mmol/L (8-16); Aspartate Amino Transferase 19 U/L (17-59); Bilirubin,Total 0.3 mg/dL (0.2-1.3); Blood Urea Nitrogen 22 mg/dL (9-20); Calcium 8.7 mg/dL (8.4-10.2); Carbon Dioxide 29 mmol/L (22-30); Chloride 102 mmol/L (98-107); Estimated CRCL calculation 88 ml/min; Estimated Glomerular Filt Rate 49; Glucose 104 mg/dL (65-110); Potassium 3.5 mmol/L (3.4-5.0); Sodium 139 mmol/L (137-145)
[2021-08-31 07:06] LABS: Bacteria Urine Trace /hpf; Mucus Urine Rare /lpf; RBC Urine >75 /hpf (0-2); Squamous Epithelial Cell Urine Moderate /hpf (Few); WBC Urine >75 /hpf
[2021-08-31 07:09] VITALS: BP 150/69; PULSE 98; RESP 16; O2SAT 97
[2021-08-31 07:28] LABS: Add Urine Microscopic? YES
[2021-08-31 07:29] LABS: Appearance Urine Cloudy (Clear); Blood Urine 4+ (Negative); Color Urine Red (Yellow); Glucose Urine UA Negative (Negative); Ketones Urine Negative (Negative); Protein Urine 2+ mg/dL (Negative); Specific Grav Ur 1.015 (1.001-1.035); pH Urine 6.5 (5.0-9.0)
[2021-08-31 07:30] LABS: Bilirubin Urine Negative (Negative); Leukocyte Esterase Ur 2+ LEU/UL (Negative); Nitrate Urine Negative (Negative); Urobilinogen Urine 0.2 mg/dL (<2.0)
== END 2021-08-31 08:58 | disposition home or self-care (01) ==
PROVIDERS: Emergency Provider Emergency Medicine; PCP Family Medicine
DX: R31.9 Hematuria, unspecified (principal); D59.10 Autoimmune hemolytic anemia, unspecified; Z87.440 Personal history of urinary (tract) infections; Z87.891 Personal history of nicotine dependence; K43.9 Ventral hernia without obstruction or gangrene; K42.9 Umbilical hernia without obstruction or gangrene; M87.9 Osteonecrosis, unspecified; K76.0 Fatty (change of) liver, not elsewhere classified
CPT/HCPCS: 36415; 74176; 80053; 81001; 85025; 87086; 87088; 96360; 99284; J7030

== ENCOUNTER 2022-10-28 08:57 | Emergency (ER) | payer BC, SELFPAY ==
[2022-10-28 09:13] VITALS: BP 121/68; PULSE 77; RESP 18; TEMP 36.6; O2SAT 97
--- NOTE | 2022-10-28 09:24 | ED.URI ---
HPI - URI/Sore Throat General Chief Complaint: Upper Respiratory Infection Stated Complaint: sorethroat,bilateral ear discomfort,cough Time Seen by Provider: 10/28/22 09:25 Source: patient and RN notes reviewed Mode of arrival: ambulatory Limitations: no limitations History of Present Illness HPI Narrative: 37-year-old male presenting for complaint of sinus pressure congestion, cough, body aches, and fatigue for over 10 days. Endorses he had a brief improvement in symptoms about 3 days, but has felt worse over the last 3 days. Endorses sinus pressure, ears feel clogged, and nasal congestion, and is hearing rattling in chest. Cough is deep, productive with white sputum. He is taking Tylenol, Nyquil, Dayquil, and Bendadryl. States he could not find his inhaler from previous illness. Denies sick contacts. MD elicited complaint: cough Related Data Allergies Allergy/AdvReac Type Severity Reaction Status Date / Time peanut Allergy Unknown Itching Verified 10/28/22 09:13 Review of Systems Review of Systems: CONSTITUTIONAL: Endorses malaise, chills, sweats, fever EYES: Denies visual changes, redness, or discharge ENT: Reports rhinorrhea, congestion, sinus pain, otalgia CARDIOVASCULAR: Denies chest pain, palpitations, edema RESPIRATORY: Reports cough, post nasal drainage. Denies dyspnea GASTROINTESTINAL: Denies abdominal pain, nausea, vomiting, diarrhea SKIN: Denies rash or itching MUSCULOSKELETAL: Endorses myalgia PMFSH Past Medical History Medical History Autoimmune hemolytic anemia Pneumonia Sepsis UTI (urinary tract infection) Surgical History Surgical History H/O vasectomy Family History Family History Mother Skin cancer Social History Social History Social History: Patient quit smoking about 5 years ago after smoking a pack a day for about 12 years. He denies alcohol or drug use. Lives at home with his 2 sons. He is . Children currently staying with his ex-. Patient is a full code. He nominates his ex- Karla be the individual would make medical decisions for him if he is unable. Smoking packs per day: 1 Smoking cigarettes per day: 20.0 Years smoked: 12 Smoking pack-years: 12.00 Smoking status: Former smoker Tobacco type: cigarettes Smoking end date: 08/04/14 Alcohol intake: never Drinks per week: 0 Substance use: never Gender identity (if verbalized by the patient): Male Spiritual care concerns: No Agree to blood products: Yes Exam Narrative: GENERAL: mildly Ill-appearing, nontoxic no acute distress. HEAD: Normocephalic EYES: PERRLA, conjunctivae clear ENT: Mucous membranes moist. TMs erythematous with normal light reflex bilaterally; no tragal tenderness. Oropharynx erythematous without lesions or exudate NECK: Supple. No lymphadenopathy CHEST: Clear to auscultation, breath sounds equal. No wheezing, rhonchi, rales, or stridor. Cough is moist and harsh. No respiratory distress, speaks in full sentences. HEART: Regular rate and rhythm. No murmur heard. SKIN: Warm, dry, no rash. NEURO: Alert and oriented x3. Course Course Emergency Course: Patient is aware of diagnosis, understands and agrees to treatment plan. Anticipatory guidance given. Patient agrees to follow-up as directed and is aware of reasons to seek care at the emergency department. Portions of this record may have been created with voice recognition software Level of Care: Express Care Visit Vital Signs Vital signs: Vital Signs Temperature 97.8 F 10/28/22 09:13 Pulse Rate 77 10/28/22 09:13 Respiratory Rate 18 10/28/22 09:13 Blood Pressure 121/68 10/28/22 09:13 Pulse Oximetry 97 10/28/22 09:13 Oxygen Delivery Room Air 10/28/22 09:13 Tempera
== END 2022-10-28 09:40 | disposition home or self-care (01) ==
PROVIDERS: Emergency Provider Nurse Practitioner Family; PCP Family Medicine
DX: J01.90 Acute sinusitis, unspecified (principal); Z87.891 Personal history of nicotine dependence; D59.10 Autoimmune hemolytic anemia, unspecified; Z98.52 Vasectomy status
CPT/HCPCS: 99213; G0463

== ENCOUNTER 2022-12-13 08:50 | Emergency (ER) | payer BC, SELFPAY ==
--- NOTE | ~2022-12-13 | XR_ITS ---
XR hip RT min 3V w AP pelvis 12/13/2022 09:39 Indication: Right hip pain. History of avascular necrosis. Procedure: No prior studies for comparison. Comparison: No prior studies for comparison. Findings: Pelvic rings are intact. There is mild osteoarthritis of the hips. No fracture, subluxation or dislocation. Sacral foramen are symmetric. Impression: 1: No acute bone or joint abnormality. Reviewed, dictated and finalized at location B. Impression: 1: No acute bone or joint abnormality.
--- NOTE | ~2022-12-13 | XR_ITS ---
LUMBAR SPINE INDICATION: Low back pain TECHNIQUE: 5 views lumbar spine COMPARISON: None FINDINGS: No fracture, subluxation or dislocation. No evidence for spondylolysis or spondylolisthesi s. No evidence for acute fracture or traumatic malalignment. There is disc narrowing at L4-5 and L5-S 1. No evidence for spondylolisthesis. IMPRESSION: 1: Mild lumbar spondylosis at L4-5 and L5-S1.. Reviewed, dictated and finalized at location B.
[2022-12-13 08:52] VITALS: BP 149/84; PULSE 76; RESP 16; TEMP 37.1; O2SAT 98
--- NOTE | 2022-12-13 09:01 | ED.LOWEXIN ---
HPI - Extremity Injury (Lower) General Chief Complaint: Extremity Injury, Lower Stated Complaint: R hip pain Time Seen by Provider: 12/13/22 09:00 Source: patient Mode of arrival: ambulatory Limitations: no limitations History of Present Illness HPI Narrative: Patient is a 37-year-old male who presents to the ED with report of right hip pain. Patient reports having pain in his right hip/posterior buttock for the last 2 days, worse with sitting, standing, walking/bearing weight. The pain does radiate down his posterior thigh just slightly. Patient denies any known injury. Denies recent increased activity or heavy lifting. 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 He states he never really followed with orthopedics for this because he was not having pain at that time. Patient took 2 Tylenol around 715 this morning without relief. Denies any numbness, tingling, fevers, calf or knee pain, back pain. CT abd/pelvis Aug 2021 showed osteonecrosis of bilateral femoral heads. Related Data Allergies Allergy/AdvReac Type Severity Reaction Status Date / Time peanut Allergy Unknown Itching Verified 12/13/22 09:02 Review of Systems Review of Systems: CONSTITUTIONAL: Denies fever, chills, or sweats. MUSCULOSKELETAL: See HPI. NEUROLOGIC: See HPI. All systems reviewed & are unremarkable except as noted in HPI and below PMFSH Past Medical History Medical History (Updated 12/13/22 @ 09:33 by Avis Spencer PA-C) Autoimmune hemolytic anemia Pneumonia Sepsis UTI (urinary tract infection) Surgical History Surgical History H/O vasectomy Family History Family History Mother Skin cancer Social History Social History Social History: Patient quit smoking about 5 years ago after smoking a pack a day for about 12 years. He denies alcohol or drug use. Lives at home with his 2 sons. He is . Children currently staying with his ex-. Patient is a full code. He nominates his ex- Karla be the individual would make medical decisions for him if he is unable. Smoking packs per day: 1 Smoking cigarettes per day: 20.0 Years smoked: 12 Smoking pack-years: 12.00 Smoking status: Former smoker Tobacco type: cigarettes Smoking end date: 08/04/14 Alcohol intake: never Drinks per week: 0 Substance use: never Gender identity (if verbalized by the patient): Male Spiritual care concerns: No Agree to blood products: Yes Exam Narrative: GENERAL: Well appearing, morbidly obese with BMI of 54.6, non-toxic, in no acute distress. HEAD: Normocephalic, atraumatic. NECK: Supple. No adenopathy, no masses. RESPIRATORY: Airway patent, respirations nonlabored. Clear to auscultation bilaterally, no rales, rhonchi, wheezing. CARDIOVASCULAR: Regular rate and rhythm without murmurs, rubs, or gallops. Pedal pulses 2+ and equal bilaterally. MUSCULOSKELETAL: Moves all extremities. Strength/ROM intact without gross deformities. Discomfort in right posterior buttock/hip elicited with flexion of hip greater than 45 degrees. Mild tenderness palpation to R posterior lateral hip joint. No TTP throughout R knee. No calf tenderness. No asymmetric edema. Sensation intact. SKIN: Warm, dry, normal color. No rashes. NEURO: A&O X3. Speech clear. Cranial nerves II-XII grossly intact. No ataxic movements. PSYCHIATRIC: Appropriate mood and affect. Normal interaction. Course Vital Signs Vital signs: Vital Signs Temperature 98.7 F 12/13/22 08:52 Pulse Rate 76 12/13/22 08:52 Respiratory Rate 16 12/13/22 08:52 Blood Pressure 149/84 H 12/13/22 08:52 Pulse Oximetry 98 12/13/22 08:52 Oxygen Delivery Room Air 12/13/22 08:52
[2022-12-13 09:02] VITALS: BP 118/70; PULSE 77; RESP 20; TEMP 36.4; O2SAT 97
[2022-12-13] MEDS: KETOROLAC (*BKC) 60 MG/2 ML VIAL IM (09:50)
== END 2022-12-13 11:06 | disposition home or self-care (01) ==
PROVIDERS: Emergency Provider Physician Assistant; PCP Family Medicine
DX: M25.551 Pain in right hip (principal); D59.10 Autoimmune hemolytic anemia, unspecified; E66.01 Morbid (severe) obesity due to excess calories; Z68.43 Body mass index [BMI] 50.0-59.9, adult; Z87.01 Personal history of pneumonia (recurrent); Z87.440 Personal history of urinary (tract) infections; Z87.891 Personal history of nicotine dependence; Z79.01 Long term (current) use of anticoagulants; Z79.4 Long term (current) use of insulin; M47.816 Spondylosis without myelopathy or radiculopathy, lumbar region
CPT/HCPCS: 72110; 73502; 96372; 99284; J1885

== ENCOUNTER 2023-05-23 20:06 | Inpatient (IN) | payer BC, SELFPAY ==
--- NOTE | ~2023-05-23 | CT_ITS ---
EXAMINATION: CTA chest PE abdomen pel DATE: 05/23/2023 22:15 CDT INDICATION: Syncope TECHNIQUE: Computed tomographic angiography (CTA) of the chest, abdomen, and pelvis was performed wit h 100 mL Omnipaque-350 intravenous contrast. The dose-length product was 3435.83 mGy-cm. Maximum inte nsity projection 3D-reconstructions of the aorta and other arteries were constructed by the technolog ist on a separate workstation. Automated exposure control and iterative reconstruction technique were employed. COMPARISON: None. FINDINGS: CHEST CTA: Study is technically inadequate for evaluation of pulmonary embolism. Cardiomegaly. No significant pl eural or pericardial effusion. No thoracic lymphadenopathy. There is dependent atelectasis. No pneumo thorax. Focal left lower lobe airspace disease may represent atelectasis or pneumonia.. ABDOMEN AND PELVIS CTA: Fatty infiltration of the liver. Gallbladder is distended. There is a fat-containing umbilical hernia . No evidence for aortic aneurysm. The spleen, adrenal glands and kidneys are unremarkable. There is thickening of the pancreatic head with subtle peripancreatic inflammation, consistent with acute panc reatitis. No evidence for pseudocyst formation or abscess. No abnormal pelvic masses or fluid collect ions. IMPRESSION: 1. Mild thickening of the pancreatic head with subtle peripancreatic inflammation, consistent with pa ncreatitis. Clinically correlate. 2: Nondiagnostic study for evaluation of pulmonary embolism. 3: Focal left lower lobe airspace disease may represent atelectasis or pneumonia. Reviewed, dictated and finalized at location A. IMPRESSION: 1. Mild thickening of the pancreatic head with subtle peripancreatic inflammati on, consistent with pancreatitis. Clinically correlate. 2: Nondiagnostic study for evaluation of pulmonary embolism. 3: Focal left lower lobe airspace disease may represent atelectasis or pneumon ia.
--- NOTE | ~2023-05-23 | MR_ITS ---
EXAMINATION: MR MRCP wo/w con/w 3D wo ind DATE: 05/25/2023 14:38 INDICATION: Pancreatitis TECHNIQUE: Magnetic resonance imaging (MRI) of the abdomen was performed without and with 20 mL Multi felix intravenous contrast. Sequences included coronal T2-weighted SS-FSE, coronal T2-weighted FS SS- FSE, coronal T2-weighted FS FIESTA, axial T2-weighted FS FIESTA, axial T2-weighted FIESTA, sagittal T 2-weighted SS-FSE, axial T1-weighted dual-echo FSPGR, axial T2-weighted SS-FSE, axial T1-weighted LAV A, axial T2-weighted STIR FSE. Thick-slab T2-weighted FRFSE-XL images were obtained for magnetic reso nance cholangiopancreatography (MRCP). Rotating maximum intensity projection 3-D reconstructions of t he volumetric data were created by the technologist. Postcontrast sequences included a time course of axial T1-weighted LAVA. COMPARISON: CT dated 05/23/2023 FINDINGS: ABDOMEN MRI: Cardiomegaly. No pericardial or pleural effusion. Diffuse hepatic steatosis with signal dropout on op posed phase imaging. There is mild central intrahepatic biliary ductal dilation. There is prominent d ilation of the bladder which measures up to 6.0 x 5.7 cm in maximal diameter without wall thickening. There is a minimal amount of T1 hyperintense dependently layering sludge in the gallbladder but no d iscrete low signal intensity gallstones on the T2-weighted imaging. Nonspecific minimal amount of per icholecystic fluid along the gallbladder fossa. Again seen is mild peripancreatic stranding at the he ad of the pancreas with interval development of more prominent peripancreatic stranding and nonlocula paloma fluid about the tail of the pancreas and anterior left pararenal space consistent with acute inte rstitial pancreatitis. The main pancreatic duct is normal in caliber measuring up to 2 mm in diameter at the level of the head and neck of the pancreas. There is however an approximately 1 cm intervenin g segment which appears decompressed raising possibility of extrinsic compression although no clearly discernible pancreatic mass is identified. Bilateral adrenal glands and kidneys are normal. Postoper ative change of prior umbilical hernia mesh repair. Visualized portions of bowels are unremarkable wi th no obstruction. No pathologically enlarged abdominal lymphadenopathy. Mild lower lumbar spondylosi s. Normal bone marrow signal throughout. ABDOMEN MRCP: In addition to the mild central intrahepatic biliary ductal dilation there is also dilation of the co mmon bile duct to 10 mm in diameter at the proximal duct which tapers relatively rapidly the region o f the mid duct with the distal intrapancreatic portion of the duct indiscernible and likely decompres sed. This in the similar region as the final decompression of the main pancreatic duct and demonstrat es concern for an otherwise occult malignancy. IMPRESSION: 1. Acute interstitial pancreatitis with interval progression of stranding and small amount of nonlocu lated peripancreatic fluid now about the pancreatic tail. 2. Dilated gallbladder and mild intra and extra hepatic ductal or ductal dilation without evident obs tructing gallstone. The mid common bile duct tapers relatively abruptly with the more distal and hepa tic portion of the duct indiscernible and likely decompressed. There also appears be a short segment of decompression of the main pancreatic duct in the same region of the pancreas which raises some con cern for extrinsic mass effect from otherwise occult mass raising some concern for malignancy. Could consider ERCP or endoscopic ultrasound for further evaluation. 3. Minimal pericholecystic fluid without definitive gallbladder wall thickening but cannot exclude ea rly acute cholecystitis. 4. Diffuse hepatic steatosis. Reviewed, dictated and finalized at location A. SUPPORT CONTROL OFFICER IM
--- NOTE | ~2023-05-23 | CT_ITS ---
EXAMINATION: CT BRAIN W/O DATE: 05/23/2023 22:00 INDICATION: Syncope. TECHNIQUE: Computed tomography (CT) of the head was performed without intravenous contrast. The dose- length product was 681.00 mGy-cm. Automated exposure control and iterative reconstruction technique w ere employed. COMPARISON: CT dated 04/24/2018 FINDINGS: Normal brain parenchymal volume for age. Normal robb-white differentiation. No acute intrac ranial hemorrhage, infarction, mass or mass effect. No ventriculomegaly or midline shift. Midline sagittal images demonstrate a normal corpus callosum, c raniovertebral junction and sella turcica. Basilar cisterns are patent. Paranasal sinuses and mastoids are pneumatized. No depressed skull fractures. IMPRESSION: 1. No acute intracranial abnormality. Reviewed, dictated and finalized at location A.
--- NOTE | ~2023-05-23 | US_ITS ---
EXAMINATION: US abdomen limited DATE: 05/24/2023 10:02 INDICATION: Right upper quadrant pain TECHNIQUE: Multiple grayscale and Doppler ultrasound images of the abdomen were obtained. COMPARISON: CT from yesterday FINDINGS: There is mildly increased echogenicity in the head of the pancreas. The liver demonstrates increased echogenicity, heterogenous echotexture, and decreased through transmission. No surface nodu larity. Normal hepatopetal flow in the main portal vein. The gallbladder is mildly distended. No abno rmal wall thickening, pericholecystic fluid or stones identified. The dilated common bile duct measur es 7 mm. There was no sonographic Marlow sign. IMPRESSION: 1. Increased echogenicity of the pancreas which could be due to pancreatitis as seen on CT comparison . 2. Dilated common bile duct and gallbladder distention, also possibly related to pancreatitis. 3. Diffuse hepatic steatosis. Reviewed, dictated and finalized at location F. IMPRESSION: 1. Increased echogenicity of the pancreas which could be due to pancreatitis as seen on CT comparison. 2. Dilated common bile duct and gallbladder distention, also possibly related t o pancreatitis. 3. Diffuse hepatic steatosis.
[2023-05-23 20:11] VITALS: BP 169/97; PULSE 86; RESP 20; TEMP 37.2; O2SAT 98
--- NOTE | 2023-05-23 20:27 | ED.ABDPAIN ---
HPI - Abdominal Pain General Chief Complaint: Abdominal Pain Stated Complaint: ?AMS Time Seen by Provider: 05/23/23 20:18 History of Present Illness HPI narrative: Patient is a 38-year-old male with history of prior ventral hernia repair here with abdominal pain. He states that the abdominal pain began yesterday. He notes that he was in [place] for work, does not endorse heavy alcohol use while he was in [place]. He notes that he has had no p.o. intake over the last 24 hours due to abdominal pain nausea. his last bowel movement was 2 days ago, continues to pass flatulence. Denies any urinary symptoms. Abdominal pain is located in the epigastrium, severe, radiates throughout the rest of his abdomen. He denies history of diabetes, does not take any diabetic medications or check his sugars regularly. He notes that he was in significant pain while driving home from the airport and the next thing he remembers is being at home and waking up with the ambulance at his house. He is unsure if he had any prodromal chest pain or shortness of breath. He denies history of PE or DVT. Related Data Allergies Allergy/AdvReac Type Severity Reaction Status Date / Time peanut Allergy Unknown Itching Verified 05/23/23 20:50 Review of Systems Review of Systems: All systems reviewed & are unremarkable except as noted in HPI and below PMFSH Past Medical History Medical History (Updated 05/24/23 @ 01:09 by Karo Leal MD) Autoimmune hemolytic anemia Pneumonia Sepsis UTI (urinary tract infection) Surgical History Surgical History H/O vasectomy Family History Family History Mother Skin cancer Social History Social History Social History: Patient quit smoking about 5 years ago after smoking a pack a day for about 12 years. He denies alcohol or drug use. Lives at home with his 2 sons. He is . Children currently staying with his ex-. Patient is a full code. He nominates his ex- Karla be the individual would make medical decisions for him if he is unable. Smoking packs per day: 1 Smoking cigarettes per day: 20.0 Years smoked: 12 Smoking pack-years: 12.00 Smoking status: Former smoker Tobacco type: cigarettes Smoking end date: 08/04/14 Alcohol intake: never Drinks per week: 0 Substance use: never Gender identity (if verbalized by the patient): Male Spiritual care concerns: No Agree to blood products: Yes Exam Narrative: GENERAL: Well-appearing, well-nourished, and appears to be in pain. HEAD: Normocephalic, atraumatic. EYES: PERRLA and EOMI. ENT: Nares clear. Mucous membranes moist. NECK: Supple. CHEST: Clear to auscultation. No respiratory distress. HEART: Tachycardic. Normal peripheral pulses. ABDOMEN: Soft, tender in the epigastrium, No rebound or guarding. Midline scar present above the umbilicus EXTREMITIES: Normal range of motion. No edema. SKIN: Warm, dry, no rash. NEURO: No focal deficits. Alert and oriented x3. PSYCH: Normal mood and affect. Course Course Emergency Course: Chart review performed. Patient here upper abdominal pain and syncope. Last hospitalization in our system was in August 2019, he had been admitted for DKA at that time along with Afib with [facility] and LEONEL. They note history of autoimmune hemolytic anemia, had been on steroids at that time which was thought to have triggered the DKA. Patient seen and evaluated, appears to be in pain, moaning in the stretcher, tachycardic, hypertensive. concern for pancreatitis, gastritis, bowel obstruction, intra-abdominal infectious process. Will additional ED workup including a CTA PE study given period of unresponsiveness after recent flight. Morphine, zofran, IVF and protonix ordered for symptoms. CT head negative. CTA CAP shows mil
--- NOTE | 2023-05-23 20:31 | ECG_ITS ---
Measurements Intervals [place] Rate: 87 P: 37 [place]: 194 QRS: 12 QRSD: 121 T: 27 QT: 366 QTc: 441 Interpretive Statements SINUS RHYTHM INCOMPLETE RIGHT BUNDLE BRANCH BLOCK BORDERLINE ECG COMPARED TO ECG 09/17/2019 13:10:05 NO SIGNIFICANT CHANGES Electronically Signed On 05-24-2023 9:23:17 CDT by Arcadio Schwab D.O.
[2023-05-23 20:39] VITALS: BP 138/84; PULSE 87; RESP 17; O2SAT 96
[2023-05-23] MEDS: ONDANSETRON INJ 4 MG/2 ML VIAL IV PUSH (20:54)
[2023-05-23] MEDS: MORPHINE SULFATE (*CRX) 4 MG/ML INJ IV PUSH (20:54)
[2023-05-23] MEDS: SODIUM CHLORIDE 0.9% IV 1,000 ML 999 ML IV CONT (20:54)
[2023-05-23] MEDS: PANTOPRAZOLE SODIUM IV 40 MG VIAL IV PUSH (20:55)
[2023-05-23 21:53] LABS: Basophils Percent Auto 0.3 % (0.2-1.2); Eosinophils Absolute Auto 0.1 K/mm3 (0-0.3); Eosinophils Percent Auto 0.9 % (0-4.4); Hematocrit 47.7 % (42.0-52.0); Hemoglobin 14.3 g/dL (14.0-18.0); Immature Granulocyte Absolute 0.04 K/mm3 (0.00-0.031); Immature Granulocyte Percent A 0.4 % (0-0.5); Lymphocytes Absolute Auto 1.02 K/mm3 (0.9-3.2); Lymphocytes Percent Auto 9.2 % (18.3-44.2); Mean Corpuscular Volume 86.6 fl (80-100); Mean Platelet Volume 10.2 fl (7.4-10.4); Monocytes Absolute Auto 0.7 K/mm3 (0.1-0.6); Monocytes Percent Auto 5.9 % (2.6-8.5); Neutrophils Absolute Auto 9.3 K/mm3 (1.3-6.7); Neutrophils Percent Auto 83.3 % (45.5-73.1); Platelet Count Result 209 k/mm3 (150-375); Red Blood Count 5.51 M/mm3 (4.6-6.20); Red Cell Distribution Width 15.3 % (11.5-14.5); White Blood Count 11.1 K/mm3 (4.5-10.0)
[2023-05-23 22:06] LABS: Lactic Acid Reflex 1.2 mmol/L (0.7-2.0)
[2023-05-23 22:06] LABS: Alanine Aminotransferase 130 U/L (6-50); Albumin Level 4.4 g/dL (3.5-5.1); Alkaline Phosphatase 116 U/L (38-126); Anion Gap 8 mmol/L (8-16); Aspartate Amino Transferase 195 U/L (17-59); Bilirubin,Total 2.2 mg/dL (0.2-1.3); Blood Urea Nitrogen 14 mg/dL (9-20); Carbon Dioxide 30 mmol/L (22-30); Chloride 102 mmol/L (98-107); Estimated CRCL calculation 129 ml/min; Estimated Glomerular Filt Rate > 60; Glucose 102 mg/dL (65-110); Lipase 775 U/L (23-300); Potassium 3.7 mmol/L (3.4-5.0); Sodium 140 mmol/L (137-145)
[2023-05-23 22:13] LABS: INR 1.1; Prothrombin Time 14.5 Seconds (11.1-14.7)
[2023-05-23 22:14] LABS: Partial Thromboplastin Time 30.5 SECONDS (22.3-36.8)
[2023-05-23 22:16] LABS: Troponin I < 0.012 ng/mL (0.000-0.034)
[2023-05-23 22:16] LABS: Estimated CRCL calculation 118 ml/min; Estimated Glomerular Filt Rate > 60
[2023-05-23 22:49] LABS: Glucose Point of Care 95 mg/dl (65-105)
[2023-05-23] MEDS: HYDROmorphone HCL INJ (*CRX) 1 MG/ML SYR IV PUSH (22:54)
[2023-05-23 22:57] VITALS: BP 135/75; PULSE 92; RESP 20; O2SAT 97
[2023-05-23 23:06] LABS: Appearance Urine Clear (Clear); Bacteria Urine None Seen /hpf; Bilirubin Urine Negative (Negative); Blood Urine 2+ (Negative); Color Urine Yellow (Yellow); Glucose Urine UA Negative (Negative); Ketones Urine 1+ mg/dL (Negative); Leukocyte Esterase Ur Negative LEU/UL (Negative); Nitrate Urine Negative (Negative); Non Pathogenic Casts 0-2; Protein Urine 2+ mg/dL (Negative); Specific Grav Ur 1.027 (1.001-1.035); Squamous Epithelial Cell Urine None seen /hpf (Few); WBC Urine 0-5 /hpf
[2023-05-23 23:22] LABS: Add Urine Microscopic? YES
[2023-05-24 00:37] LABS: Troponin I < 0.012 ng/mL (0.000-0.034)
[2023-05-24] MEDS: MORPHINE SULFATE (*CRX) 4 MG/ML INJ IV PUSH ×2 (02:11→22:20)
[2023-05-24] MEDS: SODIUM CHLORIDE 0.9% IV 1,000 ML 150 ML IV CONT (02:19)
[2023-05-24 02:41] VITALS: BP 142/85; PULSE 84; RESP 15; O2SAT 97
[2023-05-24 03:12] VITALS: BP 148/80; PULSE 84; RESP 20; O2SAT 98
--- NOTE | 2023-05-24 03:38 | ADMGEN ---
This patient, Zheng Carrizales, was admitted to 3 Med Surg Room 311-01. Patient/family oriented to hospital policies and general routines including ID bracelet, bed and alarms, visiting hours, pain management, procedures, bathroom and other care routines, personal items, smoking policy, room service/diet, and visiting hours. Information on how to activate the Rapid Response Team has been discussed. Patient/Family are encouraged to report perceived risks to care and to ask questions if they do not understand what they are told or what they should do.
[2023-05-24 03:40] VITALS: PULSE 83; RESP 24; O2SAT 98
[2023-05-24 03:48] VITALS: BMI 51.6
[2023-05-24] MEDS: HYDROmorphone HCL INJ (*CRX) 1 MG/ML SYR IV PUSH ×3 (05:45→11:45)
[2023-05-24 05:56] VITALS: BP 147/90; PULSE 83; RESP 24; TEMP 36.7; O2SAT 98
[2023-05-24 14:00] VITALS: BP 151/93; PULSE 89; RESP 22; TEMP 37.1; O2SAT 99
--- NOTE | 2023-05-24 15:22 | PM.IMHP ---
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 He denies alcohol use. Admitted on 05/24 for pancreatitis. 1) acute pancreatitis - NPO. NS @ 100ml/hr. morphine PRN. protonix - denies alcohol use. check lipid panel. lipase elevated on admission, CT revealing pancreatic head inflammation 2) gallbladder distention, bile duct distention - elevated bilirubin and transaminases. although alk phos neg. - Marlow sign positive on abdominal exam, although that may be and oversight as he has diffuse abdominal pain from pancreatitis regardless. consult gen surg for assistance 3) leukocytosis - transiently needed o2 on admission, not seeing documenting hypoxia although. he has 15 pack year smoking history previously, and complained of cough with clear sputum for [address] revealing consolidation - start ceftriaxone and azithromycin for CAP on 05/24. - follow WBC, procalcitonin. ordered viral PCR FEN: normal saline. NPO GI prophylaxis: protonix DVT prophylaxis: SCD's Lines: pIV Code Status: Full Code Dispo: stable More than 35 minutes spent on chart review, patient interaction and assessment and plan. [facility] Past Medical History Medical History (Updated 05/24/23 @ 01:09 by Karo Leal MD) Autoimmune hemolytic anemia Pneumonia Sepsis UTI (urinary tract infection) Surgical History Surgical History H/O vasectomy Family History Family History Mother Skin cancer Social History Social History Social History: Patient quit smoking about 5 years ago after smoking a pack a day for about 12 years. He denies alcohol or drug use. Lives at home with his 2 sons. He is . Children currently staying with his ex-. Patient is a full code. He nominates his ex- Karla be the individual would make medical decisions for him if he is unable. Smoking packs per day: 1 Smoking cigarettes per day: 20.0 Years smoked: 12 Smoking pack-years: 12.00 Smoking status: Never smoker Tobacco type: cigarettes Smoking end date: 08/04/14 Alcohol intake: never Drinks per week: 0 Substance use: never Lack of Transportation: No Lack of Food: Never True Current Housing: I Have Housing Concerned About Future Housing: No Difficulty Paying Gas/Electric Bills: No Difficulty Paying for Meds: No Currently Unemployed: No Education: High School Diploma/GED Difficulty w/ Childcare or Family Care: No Gender identity (if verbalized by the patient): Male Spiritual care concerns: No Agree to blood products: Yes Meds Home Medications and Allergies Home Medications Medication Instructions Recorded Confirmed Type albuterol sulfate 90 mcg/actuation 2 inh inhalation QID PRN shortness 10/28/22 05/24/23 Rx aerosol inhaler of breath or wheezing #8.5 grams naproxen 500 mg tablet 500 mg PO BID PRN pain #20 tabs 12/13/22 05/24/23 Rx albuterol sulfate 90 mcg/actuation 2 puff inhalation QID PRN 05/24/23 05/24/23 History aerosol inhaler Shortness Of Breath Or Wheezing cyclobenzaprine 5 mg tablet 10 mg PO HS PRN muscle spasm 05/24/23 05/24/23 History ergocalciferol (vitamin D2) 50,000 50,000 unit PO WEEKLY 05/24/23 05/24/23 History unit tablet levocetirizine 5 mg tablet 5 mg PO DAILY 05/24/23 05/24/23 History (Allergy Relief (levocetirizine)) phentermine 15 mg disintegrating 30 mg PO DAILY 05/24/23 05/24/23 History tablet Allergies Allergy/AdvReac Type Severity Reaction Status Date / Time peanut Allergy Unknown Itching Verified
[2023-05-24] MEDS: ONDANSETRON INJ 4 MG/2 ML VIAL IV PUSH (15:42)
[2023-05-24] MEDS: MORPHINE SULFATE (*CRX) 2 MG/ML INJ IV PUSH ×3 (15:42→19:45)
[2023-05-24] MEDS: SODIUM CHLORIDE 0.9% IV 1,000 ML 100 ML IV CONT (15:59)
[2023-05-24] MEDS: AZITHROMYCIN 500 MG/NS 250 ML 500 MG/250 ML BAG 250 MG IVPB (15:59)
[2023-05-24] MEDS: PANTOPRAZOLE SODIUM IV 40 MG VIAL IV PUSH (15:59)
[2023-05-24 19:57] LABS: Influenza A QL RT-PCR Negative (Negative); Influenza B QL RT-PCR Negative (Negative); RSV RNA, RT-PCR Negative (Negative); SARS-CoV-2 RNA PCR Negative (Negative)
[2023-05-24 22:00] VITALS: BP 141/77; PULSE 80; RESP 16; TEMP 36.1; O2SAT 100
[2023-05-25] MEDS: MORPHINE SULFATE (*CRX) 2 MG/ML INJ IV PUSH ×6 (00:50→10:15)
--- NOTE | 2023-05-25 01:12 | PC.NURSE ---
Daylight Savings Time For Daylight Savings Time Ending in the Fall - Clocks are moved back. For Daylight Savings Time Beginning in the Spring - Clocks are moved ahead. For [facility], the time of change occurs at 0200 hrs. Time is taken from the senior sql server developer. This entry on the patient's chart recognizes the change in time reflected during documentation. Example: 2 entries for vital signs may be charted for 0200 hrs.
--- NOTE | 2023-05-25 01:12 | PC.NURSE ---
Daylight Savings Time For Daylight Savings Time Ending in the Fall - Clocks are moved back. For Daylight Savings Time Beginning in the Spring - Clocks are moved ahead. For [facility], the time of change occurs at 0200 hrs. Time is taken from the room service food server. This entry on the patient's chart recognizes the change in time reflected during documentation. Example: 2 entries for vital signs may be charted for 0200 hrs.
[2023-05-25] MEDS: SODIUM CHLORIDE 0.9% IV 1,000 ML 100 ML IV CONT ×2 (01:55→12:14)
--- NOTE | 2023-05-25 05:00 | ECG_ITS ---
Measurements Intervals [place] Rate: 78 P: 26 MD: 209 QRS: -1 QRSD: 122 T: 9 QT: 389 QTc: 443 Interpretive Statements SINUS RHYTHM INCOMPLETE RIGHT BUNDLE BRANCH BLOCK BORDERLINE T WAVE ABNORMALITY- INFERIOR LEADS BORDERLINE ECG COMPARED TO ECG 05/23/2023 21:12:21 NO SIGNIFICANT CHANGES Electronically Signed On 05-25-2023 8:03:23 HUMAN RESOURCES EXECUTIVE ASSISTANT by Arcadio Schwab D.O.
[2023-05-25 06:00] VITALS: BP 130/71; PULSE 82; RESP 16; TEMP 36.3; O2SAT 96
[2023-05-25 06:49] LABS: Basophils Percent Auto 0.2 % (0.2-1.2); Eosinophils Absolute Auto 0.1 K/mm3 (0-0.3); Eosinophils Percent Auto 0.9 % (0-4.4); Hematocrit 45.8 % (42.0-52.0); Hemoglobin 13.4 g/dL (14.0-18.0); Immature Granulocyte Absolute 0.04 K/mm3 (0.00-0.031); Immature Granulocyte Percent A 0.4 % (0-0.5); Lymphocytes Absolute Auto 0.66 K/mm3 (0.9-3.2); Lymphocytes Percent Auto 6.9 % (18.3-44.2); Mean Corpuscular HGB Conc 29.3 g/dl (32-36); Mean Corpuscular Volume 88.9 fl (80-100); Mean Platelet Volume 10.6 fl (7.4-10.4); Monocytes Absolute Auto 0.7 K/mm3 (0.1-0.6); Monocytes Percent Auto 7.5 % (2.6-8.5); Neutrophils Percent Auto 84.1 % (45.5-73.1); Platelet Count Result 181 k/mm3 (150-375); Red Blood Count 5.15 M/mm3 (4.6-6.20); Red Cell Distribution Width 15.1 % (11.5-14.5); White Blood Count 9.5 K/mm3 (4.5-10.0)
[2023-05-25 07:03] LABS: Alanine Aminotransferase 334 U/L (6-50); Albumin Level 3.6 g/dL (3.5-5.1); Alkaline Phosphatase 179 U/L (38-126); Anion Gap 6 mmol/L (8-16); Aspartate Amino Transferase 214 U/L (17-59); Bilirubin,Total 5.8 mg/dL (0.2-1.3); Blood Urea Nitrogen 11 mg/dL (9-20); Calcium 8.3 mg/dL (8.4-10.2); Carbon Dioxide 26 mmol/L (22-30); Chloride 103 mmol/L (98-107); Cholesterol 114 mg/dL (0-200); Estimated CRCL calculation 160 ml/min; Estimated Glomerular Filt Rate > 60; Glucose 90 mg/dL (65-110); HDL Direct 30 mg/dL; Magnesium 2.2 mg/dL (1.6-2.3); Potassium 3.7 mmol/L (3.4-5.0); Sodium 135 mmol/L (137-145); Triglycerides 71 mg/dL (<150)
[2023-05-25 07:14] LABS: LDL Cholesterol Direct 59 mg/dL
[2023-05-25 07:20] LABS: Large Platelets Present; Platelet Estimate Adequate (Adequate)
[2023-05-25 07:21] LABS: Burr Cells 1+ (NORMAL); Poikilocytosis 1+ (NORMAL); Schistocytes None Seen (NORMAL)
[2023-05-25 07:34] LABS: Procalcitonin 0.7 ng/mL
--- NOTE | 2023-05-25 07:44 | PM.CNGS ---
Assessment and Plan Assessment and plan (1) Acute pancreatitis: Qualifiers: Acute pancreatitis complication: unspecified Pancreatitis type: unspecified pancreatitis type Qualified Code(s): K85.90 - Acute pancreatitis without necrosis or infection, unspecified Code(s): K85.90 - Acute pancreatitis without necrosis or infection, unspecified Status: Acute Assessment and Plan: Likely biliary in nature, will get MRCP for further evaluation, will also get GI consultation, cont IV abx History of Present Illness Consult details Consult date: 05/25/23 Narrative: The patient is a 38-year-old male presenting to the emergency department complaining of severe upper abdominal pain. The patient also endorses nausea, bloating, poor appetite. Workup in the emergency department, including imaging, is significant for acute pancreatitis. The patient denies previous episodes. The patient was on a work trip in [place] last week, however reports no heavy alcohol use. Review of Systems Review of Systems: All systems reviewed & are unremarkable except as noted in HPI and below PMFSH Past Medical History Medical History Autoimmune hemolytic anemia Pneumonia Sepsis UTI (urinary tract infection) Surgical History Surgical History H/O vasectomy Family History Family History Mother Skin cancer Social History Social History Social History: Patient quit smoking about 5 years ago after smoking a pack a day for about 12 years. He denies alcohol or drug use. Lives at home with his 2 sons. He is . Children currently staying with his ex-. Patient is a full code. He nominates his ex- Karla be the individual would make medical decisions for him if he is unable. Smoking packs per day: 1 Smoking cigarettes per day: 20.0 Years smoked: 12 Smoking pack-years: 12.00 Smoking status: Never smoker Tobacco type: cigarettes Smoking end date: 08/04/14 Alcohol intake: never Drinks per week: 0 Substance use: never Lack of Transportation: No Lack of Food: Never True Current Housing: I Have Housing Concerned About Future Housing: No Difficulty Paying Gas/Electric Bills: No Difficulty Paying for Meds: No Currently Unemployed: No Education: High School Diploma/GED Difficulty w/ Childcare or Family Care: No Gender identity (if verbalized by the patient): Male Spiritual care concerns: No Agree to blood products: Yes Meds Home Medications and Allergies Home Medications Medication Instructions Recorded Confirmed Type albuterol sulfate 90 mcg/actuation 2 inh inhalation QID PRN shortness 10/28/22 05/24/23 Rx aerosol inhaler of breath or wheezing #8.5 grams naproxen 500 mg tablet 500 mg PO BID PRN pain #20 tabs 12/13/22 05/24/23 Rx albuterol sulfate 90 mcg/actuation 2 puff inhalation QID PRN 05/24/23 05/24/23 History aerosol inhaler Shortness Of Breath Or Wheezing cyclobenzaprine 5 mg tablet 10 mg PO HS PRN muscle spasm 05/24/23 05/24/23 History ergocalciferol (vitamin D2) 50,000 50,000 unit PO WEEKLY 05/24/23 05/24/23 History unit tablet levocetirizine 5 mg tablet 5 mg PO DAILY 05/24/23 05/24/23 History (Allergy Relief (levocetirizine)) phentermine 15 mg disintegrating 30 mg PO DAILY 05/24/23 05/24/23 History tablet Allergies Allergy/AdvReac Type Severity Reaction Status Date / Time peanut Allergy Unknown Itching Verified 05/23/23 20:50 Vital Signs Vital Signs - 24 hr 05/24/23 14:00 05/24/23 19:51 05/24/23 22:00 Temperature 37.1 C 36.1 C L Pulse Rate 89 80 Respiratory Rate 22 H 16 Blood Pressure 151/93 H 141/77 H Pulse Oximetry 99 100 Oxygen Delivery Nasal Cannula Oxygen Flow Rate 1.5 05/25/23 06:00 Temperatur
[2023-05-25] MEDS: PANTOPRAZOLE SODIUM IV 40 MG VIAL IV PUSH (08:38)
--- NOTE | 2023-05-25 12:02 | PM.IMPN ---
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 He denies alcohol use. Admitted on 05/24 for pancreatitis. 1) acute pancreatitis - presented with abdominal pain lipase elevated on admission, CT revealing pancreatic head inflammation - NPO. NS @ 100ml/hr. protonix - morphine increased to 3mg IV q1hr prn. pt aware and accepts risks. start telemetry and cont pulse ox - zofran prn. qtc 443 on 05/25/23 - denies alcohol use. had history of hypertriglyceridemia but lipid panel this admission unrevealing. 2) gallbladder distention, bile duct distention - elevated bilirubin and transaminases. increased on 05/25 and alk phos elevated now. cholestatic pattern. sx and GI consulted. pending MRCP 3) leukocytosis - resolved. possible pneumonia demonstrated on CT, although no respiratory symptoms. - start ceftriaxone and azithromycin for CAP on 05/24. added flagyl 05/25 - follow WBC, procalcitonin FEN: normal saline. NPO except meds w/ sips GI prophylaxis: protonix DVT prophylaxis: SCD's Lines: pIV Code Status: Full Code Dispo: stable More than 35 minutes spent on chart review, patient interaction and assessment and plan. Subjective Date/time seen: 05/25/23 12:02 Interval history: pt complains of pain returning to 8/9 after 45 minutes of morphine. he still has nausea but controlled with zofran. denies cough, sob, chest pain. endorses abdominal pain. requesting sips Review of Systems Review of Systems: All systems reviewed & are unremarkable except as noted in HPI and below Exam Const: General: comfortable Eyes: Pupils: Equal, round and reactive pupils present Neck: Neck: supple Resp: Effort & Inspection: normal respiratory effort Auscultation: clear to auscultation bilaterally Cardio: Rate: regular rate Rhythm: regular rhythm Heart sounds: no gallops, no murmurs and no rubs GI: GI Palp: Yes Tenderness to palpation present (GI) (diffuse, to deep palpation) Auscultation: normal bowel sounds Extrem: General: no edema Objective Data Vital Signs Vital Signs: Vital Signs - 24 hr 05/24/23 14:00 05/24/23 19:51 05/24/23 22:00 Temperature 98.7 F 97.0 F L Pulse Rate 89 80 Respiratory Rate 22 H 16 Blood Pressure 151/93 H 141/77 H Pulse Oximetry 99 100 Oxygen Delivery Nasal Cannula Oxygen Flow Rate 1.5 05/25/23 06:00 05/25/23 08:20 Temperature 97.4 F L Pulse Rate 82 Respiratory Rate 16 Blood Pressure 130/71 Pulse Oximetry 96 Oxygen Delivery Room Air Oxygen Flow Rate Intake/Output Intake/Output: Intake & Output 05/22/23 05/23/23 05/24/23 05/25/23 23:59 23:59 23:59 22:59 Intake Total 1000 0 1000 Output Total 1240 Balance 1000 0 -240 Meds/Results Medications: Active Medications Generic Name Dose Route Start Last Admin Trade Name Gastonq PRN Reason Stop Dose Admin Sodium Chloride 1,000 mls @ 100 mls/hr 05/24/23 15:15 05/25/23 01:55 BACK GRAY CLOTH WASHER Normal Saline Iv IV CONT 100 mls/hr .Q10H LEROY Administration Ceftriaxone Sodium 1 gm in 50 mls @ 100 mls/hr 05/24/23 16:00 05/24/23 15:59 Rocephin 1 Gm/Ns 50 Ml IVPB 100 mls/hr Q24H LEROY Administration Azithromycin 500 mg in 250 mls @ 250 mls/hr 05/24/23 16:00 05/24/23 15:59 Zithromax IVPB 250 mls/hr Q24H LEROY
[2023-05-25] MEDS: MORPHINE SULFATE (*CRX) 2 MG/ML INJ 3 MG IV PUSH ×7 (12:11→22:13)
[2023-05-25 12:29] VITALS: PULSE 76
[2023-05-25] MEDS: metroNIDAZOLE 500 MG/ISO 100ML 500 MG/100 ML BAG 100 MG IVPB ×2 (12:49→22:13)
[2023-05-25] MEDS: ONDANSETRON INJ 4 MG/2 ML VIAL IV PUSH ×2 (13:20→19:44)
[2023-05-25 14:00] VITALS: BP 140/78; PULSE 68; RESP 16; TEMP 36.7; O2SAT 98
--- NOTE | 2023-05-25 14:44 | WPDGICN ---
Assessment and Plan Assessment and plan (1) Acute pancreatitis: Qualifiers: Acute pancreatitis complication: unspecified Pancreatitis type: unspecified pancreatitis type Qualified Code(s): K85.90 - Acute pancreatitis without necrosis or infection, unspecified Code(s): K85.90 - Acute pancreatitis without necrosis or infection, unspecified Status: Acute Assessment and Plan: no alcohol use, normal TG level probably biliary in origin, given elevated bilirubin and dilated bile duct will get MRCP to assess if biliary obstruction/stone, etc surgery on board npo and pain control (2) Elevated liver enzymes: Code(s): R74.8 - Abnormal levels of other serum enzymes Status: Acute Assessment and Plan: from pancreatitis but awaiting on MRCP to assess biliary system get hepatitis panel (3) Morbid obesity: Code(s): E66.01 - Morbid (severe) obesity due to excess calories Status: Acute (4) Upper abdominal pain: Code(s): R10.10 - Upper abdominal pain, unspecified Status: Acute (5) Dilated bile duct: Code(s): K83.8 - Other specified diseases of biliary tract Status: Acute GI Consult Note Consult date/time: 05/25/23 14:44 Reason for consult: abdominal pain, pancreatitis, elevated liver enzymes HPI: Zheng Carrizales is a 38 year old male h/o obesity, asthma, ventral hernia repair, autoimmune hemolytic anemia. He was in a work trip in [place] and reported severe upper abdominal pain with nausea and dry heaves, very intense and pain did not go away, denies alcohol use. Workup in the emergency department significant for acute pancreatitis.? The patient denies previous episodes. Never had scopes. Also noted elevated liver enzymes, bili 5, transaminases 200-300. CT scan a/p reviewed, Increased echogenicity of the pancreas which could be due to pancreatitis, Dilated common bile duct and gallbladder distention, also possibly related to pancreatitis, Diffuse hepatic steatosis. He is feelig better after pain meds. Review of Systems Constitutional: Constitutional: Reports chills Eyes: Eyes: Denies blurry vision ENT: Reports Normal hearing present Cardiovascular: Cardiovascular: Denies lightheadedness Respiratory: Respiratory: Denies cough Gastrointestinal: Gastrointestinal: Reports abdominal pain and Reports nausea Genitourinary: Genitourinary: Denies urinary frequency Musculoskeletal: Musculoskeletal: Denies arthralgias Integumentary/Breasts: Skin/Breast: Denies rash Neurologic: Denies Abnormal speech present Psychiatric: Psychiatric: Denies anxiety PMFSH Past Medical History Medical History (Updated 05/25/23 @ 14:49 by Moiz Todd MD) Autoimmune hemolytic anemia Dilated bile duct Elevated liver enzymes Morbid obesity Pneumonia Sepsis Upper abdominal pain UTI (urinary tract infection) Surgical History Surgical History H/O vasectomy Family History Family History Mother Skin cancer Social History Social History Social History: Patient quit smoking about 5 years ago after smoking a pack a day for about 12 years. He denies alcohol or drug use. Lives at home with his 2 sons. He is . Children currently staying with his ex-. Patient is a full code. He nominates his ex- Karla be the individual would make medical decisions for him if he is unable. Smoking packs per day: 1 Smoking cigarettes per day: 20.0 Years smoked: 12 Smoking pack-years: 12.00 Smoking status: Never smoker Tobacco type: cigarettes Smoking end date: 08/04/14 Alcohol intake: never Drinks per week: 0 Substance use: never Lack of Transportation: No Lack of Food: Never True Current Housing: I Have Housing Concerned About Future Housing: No Difficu
[2023-05-25 16:00] VITALS: PULSE 86
[2023-05-25] MEDS: AZITHROMYCIN 500 MG/NS 250 ML 500 MG/250 ML BAG 250 MG IVPB (16:41)
[2023-05-25 20:00] VITALS: PULSE 101
[2023-05-25 22:00] VITALS: BP 144/80; PULSE 87; RESP 18; TEMP 36.5; O2SAT 99
[2023-05-26] VITALS (9 sets, daily range): BP systolic 124–137; BP diastolic 54–82; PULSE 79–90; RESP 18–24; TEMP 36.3–36.6; O2SAT 96–99
[2023-05-26] MEDS: MORPHINE SULFATE (*CRX) 2 MG/ML INJ 3 MG IV PUSH ×9 (00:49→22:12)
[2023-05-26] MEDS: SODIUM CHLORIDE 0.9% IV 1,000 ML 100 ML IV CONT ×2 (04:40→16:53)
[2023-05-26] MEDS: metroNIDAZOLE 500 MG/ISO 100ML 500 MG/100 ML BAG 100 MG IVPB ×3 (06:12→21:00)
[2023-05-26 07:10] LABS: Alanine Aminotransferase 332 U/L (6-50); Albumin Level 3.2 g/dL (3.5-5.1); Alkaline Phosphatase 223 U/L (38-126); Anion Gap 5 mmol/L (8-16); Aspartate Amino Transferase 184 U/L (17-59); Bilirubin,Total 4.5 mg/dL (0.2-1.3); Blood Urea Nitrogen 11 mg/dL (9-20); Carbon Dioxide 28 mmol/L (22-30); Chloride 101 mmol/L (98-107); Estimated CRCL calculation 160 ml/min; Estimated Glomerular Filt Rate > 60; Glucose 116 mg/dL (65-110); Potassium 3.7 mmol/L (3.4-5.0); Sodium 134 mmol/L (137-145)
[2023-05-26 07:39] LABS: Hematocrit 40.4 % (42.0-52.0); Hemoglobin 12.1 g/dL (14.0-18.0); Mean Corpuscular Volume 86.7 fl (80-100); Mean Platelet Volume 10.6 fl (7.4-10.4); Platelet Count Result 178 k/mm3 (150-375); Red Blood Count 4.66 M/mm3 (4.6-6.20); Red Cell Distribution Width 15.5 % (11.5-14.5); White Blood Count 10.9 K/mm3 (4.5-10.0)
[2023-05-26 07:45] LABS: Hepatitis B Surface Antigen Negative (Negative)
[2023-05-26 07:50] LABS: HAV RESULT Negative (Negative); Hepatitis B Core IgM Result Negative (Negative)
[2023-05-26 08:02] LABS: Hepatitis C Virus Antibody Negative (Negative)
[2023-05-26] MEDS: PANTOPRAZOLE SODIUM IV 40 MG VIAL IV PUSH (08:58)
--- NOTE | 2023-05-26 09:05 | PM.IMPN ---
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 He denies alcohol use. Admitted on 05/24 for pancreatitis. 1) acute pancreatitis - presented with abdominal pain lipase elevated on admission, CT revealing pancreatic head inflammation - NPO. NS @ 100ml/hr. protonix - morphine increased to 3mg IV q1hr prn. pt aware and accepts risks. start telemetry and cont pulse ox - zofran prn. qtc 443 on 05/25/23 - denies alcohol use. had history of hypertriglyceridemia but lipid panel this admission unrevealing. 2) gallbladder distention, bile duct distention - elevated bilirubin and transaminases. increased on 05/25 and alk phos elevated now. cholestatic pattern. sx and GI consulted. A possible early acute cholecystitis Patient is on azithromycin ceftriaxone, and Flagyl 3) leukocytosis - resolved. possible pneumonia demonstrated on CT, although no respiratory symptoms. - start ceftriaxone and azithromycin for CAP on 05/24. added flagyl 05/25 - follow WBC, procalcitonin Pancreatic mass 1. Acute interstitial pancreatitis with interval progression of stranding and small amount of nonloculated peripancreatic fluid now about the pancreatic tail. 2. Dilated gallbladder and mild intra and extra hepatic ductal or ductal dilation without evident obstructing gallstone. The mid common bile duct tapers relatively abruptly with the more distal and hepatic portion of the duct indiscernible and likely decompressed. There also appears be a short segment of decompression of the main pancreatic duct in the same region of the pancreas which raises some concern for extrinsic mass effect from otherwise occult mass raising some concern for malignancy. Could consider ERCP or endoscopic ultrasound for further evaluation. 3. Minimal pericholecystic fluid without definitive gallbladder wall thickening but cannot exclude early acute cholecystitis. 4. Diffuse hepatic steatosis. Transfer patient to tertiary hospital for transesophageal ultrasound FEN: normal saline. NPO except meds w/ sips GI prophylaxis: protonix DVT prophylaxis: SCD's Lines: pIV Code Status: Full Code Dispo: stable More than 35 minutes spent on chart review, patient interaction and assessment and plan. Subjective Date/time seen: 05/26/23 09:05 Interval history: Patient still has abdominal pain, associated with nausea, denies vomiting. Pain is better managed. Patient is afebrile Exam Narrative: GENERAL: Pleasant, in no acute distress. Well-nourished. - EYES: EOMI. Jaundice - HENT: Moist mucous membranes. - LUNGS: Clear to auscultation bilaterally, no wheezing, rhonchi, or rales. - CARDIOVASCULAR: Regular rate and rhythm. No murmur. No JVD. - ABDOMEN: Soft, mid abdomen-tender and non-distended. No palpable masses. - EXTREMITIES: No edema. Peripheral pulses 2+. Non-tender. - NEUROLOGIC: No focal neurological deficits. CN II-XII grossly intact. - PSYCHIATRIC: Awake, Alert and oriented x 3. Appropriate mood and affect. - SKIN: No rashes or lesions. Warm. - LYMPH: No cervical lymphadenopathy. Objective Data Vital Signs Vital Signs: Vital Signs - 24 hr 05/25/23 12:29 05/25/23 14:00 05/25/23 16:00 Temperature 98.1 F Pulse Rate 76 68 86 Respiratory Rate 16 Blood Pressure 140/78 Pulse
--- NOTE | 2023-05-26 13:26 | WPDGIPROGNO ---
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.3 - Other congenital malformations of pancreas and pancreatic duct Status: Acute Assessment and Plan: MRCP reviewed with patient, concerning of possible extrinsic lesion near the pancreas and recommendation to assess with EUS- needs to rule out malignancy, also could be from inflammation/pancreatitis I think we need to transfer to tertiary center for EUS, then they can assess also if may need biliary decompression with ercp +/- stenting if indicated (4) Elevated liver enzymes: Code(s): R74.8 - Abnormal levels of other serum enzymes Status: Acute Assessment and Plan: monitor (5) Morbid obesity: Code(s): E66.01 - Morbid (severe) obesity due to excess calories Status: Acute (6) Upper abdominal pain: Code(s): R10.10 - Upper abdominal pain, unspecified Status: Acute Subjective Date/time seen: 05/26/23 13:26 Interval history: still with similar pain but he is thirsty Review of Systems Review of Systems: All systems reviewed & are unremarkable except as noted in HPI and below Exam Const: General: cooperative, uncomfortable and obese HENMT: Head: normal to inspection, normocephalic and atraumatic Eyes: General: appearance normal, both eyes and all related structures Neck: Neck: normal visual inspection, full ROM and no lymphadenopathy Resp: Auscultation: clear to auscultation bilaterally Cardio: Rate: regular rate Rhythm: regular rhythm GI: Inspection: normal to inspection and distended GI Palp: Yes abdominal tenderness, Yes Tenderness to palpation present (GI), No Guarding due to palpation present (GI) and No Rigid due to palpation Skin: General skin exam: normal color and no rashes or lesions noted Neuro: General: patient oriented x3 and CN's II-XI intact bilaterally Extrem: General: normal to inspection and full ROM Psych: Affect: normal affect Objective Data Vital Signs Vital Signs: Vital Signs - 24 hr 05/25/23 14:00 05/25/23 16:00 05/25/23 20:00 Temperature 98.1 F Pulse Rate 68 86 101 H Respiratory Rate 16 Blood Pressure 140/78 Pulse Oximetry 98 Oxygen Delivery 05/25/23 22:00 05/26/23 00:00 05/26/23 04:00 Temperature 97.7 F Pulse Rate 87 84 89 Respiratory Rate 18 Blood Pressure 144/80 H Pulse Oximetry 99 Oxygen Delivery 05/26/23 06:00 05/26/23 08:00 Temperature 97.4 F L Pulse Rate 88 Respiratory Rate 24 H Blood Pressure 137/82 Pulse Oximetry 97 Oxygen Delivery Room Air Intake/Output Intake/Output: Intake & Output 05/24/23 05/25/23 05/25/23 05/26/23 00:59 00:59 23:59 23:59 Intake Total 480 Output Total 700 Balance -220 Meds/Results Medications: Active Medications Generic Name Dose Route Start Last Admin Trade Name Freq PRN Reason Stop Dose Admin Sodium Chloride 1,000 mls @ 100 mls/hr 05/24/23 15:15 05/26/23 04:40 Normal Saline Iv IV CONT 100 mls/hr .Q10H LEROY Administration Ceftriaxone Sodium 1 gm in 50 mls @ 100 mls/hr 05/24/23 16:00 05/25/23 15:53 Rocephin 1 Gm/Ns 50 Ml IVPB Infused Q24H LEROY Infusion Azithromycin 500 mg in 250 mls @ 250 mls/hr 05/24/23 16:00 05/25/23 17:41 Zithromax IVPB Infused Q24H LEROY Infusion Metronidazole 500 mg in 100 mls @ 100 mls/hr 05/25/23 13:00 05/26/23 06:12 Fl
--- NOTE | 2023-05-26 14:25 | PM.PNGS ---
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 Status: Acute Assessment and Plan: will need further workup c EUS, will need transfer to tertiary center to have further workup and treatment, ok to have clears Subjective Subjective Date/Time Seen: 05/26/23 14:25 Interval history: still c upper abd pain, discomfort Review of Systems Review of Systems: All systems reviewed & are unremarkable except as noted in HPI and below Exam Const: General: cooperative, no acute distress, uncomfortable and obese Resp: Auscultation: clear to auscultation bilaterally Cardio: Rate: regular rate Rhythm: regular rhythm GI: Inspection: normal to inspection and distended GI Palp: Yes abdominal tenderness, Yes Soft to palpation, Yes Tenderness to palpation present (GI), No Guarding due to palpation present (GI) and No Rigid due to palpation Objective Data Vital Signs Vital Signs: Vital Signs - 24 hr 05/25/23 16:00 05/25/23 20:00 05/25/23 22:00 Temperature 36.5 C Pulse Rate 86 101 H 87 Respiratory Rate 18 Blood Pressure 144/80 H Pulse Oximetry 99 Oxygen Delivery 05/26/23 00:00 05/26/23 04:00 05/26/23 06:00 Temperature 36.3 C L Pulse Rate 84 89 88 Respiratory Rate 24 H Blood Pressure 137/82 Pulse Oximetry 97 Oxygen Delivery 05/26/23 08:00 05/26/23 14:00 Temperature 36.4 C L Pulse Rate 79 Respiratory Rate 22 H Blood Pressure 124/54 L Pulse Oximetry 98 Oxygen Delivery Room Air Intake/Output Intake/Output: Intake & Output 05/24/23 05/25/23 05/25/23 05/26/23 00:59 00:59 23:59 23:59 Intake Total 580 Output Total 1300 Balance -720 Meds/Results Medications: Active Medications Generic Name Dose Route Start Last Admin Trade Name Freq PRN Reason Stop Dose Admin Sodium Chloride 1,000 mls @ 100 mls/hr 05/24/23 15:15 05/26/23 04:40 Normal Saline Iv IV CONT 100 mls/hr .Q10H LEROY Administration Ceftriaxone Sodium 1 gm in 50 mls @ 100 mls/hr 05/24/23 16:00 05/25/23 15:53 Rocephin 1 Gm/Ns 50 Ml IVPB Infused Q24H LEROY Infusion Azithromycin 500 mg in 250 mls @ 250 mls/hr 05/24/23 16:00 05/25/23 17:41 Zithromax IVPB Infused Q24H LEROY Infusion Metronidazole 500 mg in 100 mls @ 100 mls/hr 05/25/23 13:00 05/26/23 14:24 Flagyl 500 Mg/Iso Soln 100 Ml IVPB 100 mls/hr Q8HR LEROY Administration Morphine Sulfate 3 mg 05/25/23 12:00 05/26/23 11:04 Morphine Sulfate (*Crx) 2 Mg/Ml Inj IV PUSH 3 mg Q1HR PRN Administration pain Ondansetron HCl 4 mg 05/24/23 12:54 05/25/23 19:44 Ondansetron Inj 4 Mg/2 Ml Vial IV PUSH 4 mg Q6H PRN Administration Nausea And Vomiting Pantoprazole Sodium 40 mg 05/24/23 15:30 05/26/23 08:58 Pantoprazole Sodium Iv 40 Mg Vial IV PUSH 40 mg QAM LEROY Administration Radiology Results: ITS Impressions Head CT 05/23/23 22:01 IMPRESSION: 1. No acute intracranial abnormality. Chest/Abdomen/Pelvis CTA 05/23/23 22:15 IMPRESSION: 1. Mild thickening of the pancreatic head with subtle peripancreatic inflammation, consistent with pancreatitis. Clinically correlate. 2: Nondiagnostic study for evaluation of pulmonary embolism. 3: Focal left lower lobe airspace disease may represent atelectasis or pneumonia. Abdomen Ultrasound 05/24/23 10:24 IMPRESSION: 1. Increased echogenicity of the pancreas which could be due to pancreatitis as seen on CT comparison. 2. Dilated common bile duct and gallbladder distention, also possibly related to pancreatitis. 3. Diffuse hepatic steatosis. MRCP 05/25/23 16:58 IMPRESSION: 1. Acute interstitial pancreatitis with interval progression of stranding and small amount of nonloculated peripancreatic fluid now about the pancreatic tail. 2. Dilated gallbladder and mild intra and extra hepatic ductal or ductal dilati
[2023-05-26] MEDS: AZITHROMYCIN 500 MG/NS 250 ML 500 MG/250 ML BAG 250 MG IVPB (16:53)
--- NOTE | 2023-05-26 18:12 | PC.NURSE ---
Pt accepted at [facility] - awaiting available bed.
[2023-05-26] MEDS: ONDANSETRON INJ 4 MG/2 ML VIAL IV PUSH (21:09)
[2023-05-27] VITALS: PULSE 78
[2023-05-27] MEDS: MORPHINE SULFATE (*CRX) 2 MG/ML INJ 3 MG IV PUSH ×2 (03:04→05:16)
[2023-05-27 04:00] VITALS: PULSE 81
[2023-05-27] MEDS: metroNIDAZOLE 500 MG/ISO 100ML 500 MG/100 ML BAG 100 MG IVPB ×2 (05:16→15:07)
[2023-05-27] MEDS: SODIUM CHLORIDE 0.9% IV 1,000 ML 100 ML IV CONT (05:16)
[2023-05-27 06:00] VITALS: BP 123/88; PULSE 76; RESP 18; TEMP 36.8; O2SAT 96
[2023-05-27 08:00] VITALS: PULSE 76; RESP 18; O2SAT 96
--- NOTE | 2023-05-27 08:53 | PM.IMPN ---
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 He denies alcohol use. Admitted on 05/24 for pancreatitis. 1) acute pancreatitis - presented with abdominal pain lipase elevated on admission, CT revealing pancreatic head inflammation - NPO. NS @ 100ml/hr. protonix - morphine increased to 3mg IV q1hr prn. pt aware and accepts risks. start telemetry and cont pulse ox - zofran prn. qtc 443 on 05/25/23 - denies alcohol use. had history of hypertriglyceridemia but lipid panel this admission unrevealing. 2) gallbladder distention, bile duct distention - elevated bilirubin and transaminases. increased on 05/25 and alk phos elevated now. cholestatic pattern. sx and GI consulted. A possible early acute cholecystitis Patient is on azithromycin ceftriaxone, and Flagyl 3) leukocytosis - resolved. possible pneumonia demonstrated on CT, although no respiratory symptoms. - start ceftriaxone and azithromycin for CAP on 05/24. added flagyl 05/25 - follow WBC, leukocytosis resolves Pancreatic mass 1. Acute interstitial pancreatitis with interval progression of stranding and small amount of nonloculated peripancreatic fluid now about the pancreatic tail. 2. Dilated gallbladder and mild intra and extra hepatic ductal or ductal dilation without evident obstructing gallstone. The mid common bile duct tapers relatively abruptly with the more distal and hepatic portion of the duct indiscernible and likely decompressed. There also appears be a short segment of decompression of the main pancreatic duct in the same region of the pancreas which raises some concern for extrinsic mass effect from otherwise occult mass raising some concern for malignancy. Could consider ERCP or endoscopic ultrasound for further evaluation. 3. Minimal pericholecystic fluid without definitive gallbladder wall thickening but cannot exclude early acute cholecystitis. 4. Diffuse hepatic steatosis. Transfer patient to tertiary hospital for transesophageal ultrasound [facility] accepts patient GI prophylaxis: protonix DVT prophylaxis: SCD's Lines: pIV Code Status: Full Code Dispo: stable. Subjective Date/time seen: 05/27/23 08:53 Interval history: Patient feels better today, pain is better controlled, nausea without vomiting on cardiac diet. Patient denies fever, chills, dysuria. Patient afebrile, blood pressure stable is Exam Narrative: GENERAL: Pleasant, in no acute distress. Well-nourished. - EYES: EOMI. Jaundice - HENT: Moist mucous membranes. - LUNGS: Clear to auscultation bilaterally, no wheezing, rhonchi, or rales. - CARDIOVASCULAR: Regular rate and rhythm. No murmur. No JVD. - ABDOMEN: Soft, mild tenderness mid abdomen, non-distended. No palpable masses. - EXTREMITIES: No edema. Peripheral pulses 2+. Non-tender. - NEUROLOGIC: No focal neurological deficits. CN II-XII grossly intact. - PSYCHIATRIC: Awake, Alert and oriented x 3. Appropriate mood and affect. - SKIN: No rashes or lesions. Warm. - LYMPH: No cervical lymphadenopathy. Objective Data Vital Signs Vital Signs: Vital Signs - 24 hr 05/26/23 14:00 05/26/23 16:11 05/26/23 12:00 Temperature 97.5 F L Pulse Rate 79 88 Respiratory Rate 22 H Blood Pressure 124/54 L P
[2023-05-27 09:53] LABS: Basophils Percent Auto 0.2 % (0.2-1.2); Eosinophils Absolute Auto 0.2 K/mm3 (0-0.3); Eosinophils Percent Auto 2.8 % (0-4.4); Hematocrit 33.9 % (42.0-52.0); Hemoglobin 9.9 g/dL (14.0-18.0); Immature Granulocyte Absolute 0.06 K/mm3 (0.00-0.031); Lymphocytes Absolute Auto 0.68 K/mm3 (0.9-3.2); Lymphocytes Percent Auto 11.4 % (18.3-44.2); Mean Corpuscular HGB Conc 29.2 g/dl (32-36); Mean Platelet Volume 10.3 fl (7.4-10.4); Monocytes Absolute Auto 0.6 K/mm3 (0.1-0.6); Monocytes Percent Auto 10.2 % (2.6-8.5); Neutrophils Absolute Auto 4.5 K/mm3 (1.3-6.7); Neutrophils Percent Auto 74.4 % (45.5-73.1); Platelet Count Result 136 k/mm3 (150-375); Red Blood Count 3.81 M/mm3 (4.6-6.20); Red Cell Distribution Width 15.5 % (11.5-14.5)
[2023-05-27] MEDS: PANTOPRAZOLE SODIUM IV 40 MG VIAL IV PUSH (10:14)
[2023-05-27 13:23] LABS: Alanine Aminotransferase 254 U/L (6-50); Albumin Level 3.4 g/dL (3.5-5.1); Alkaline Phosphatase 224 U/L (38-126); Anion Gap 4 mmol/L (8-16); Aspartate Amino Transferase 103 U/L (17-59); Bilirubin,Total 2.4 mg/dL (0.2-1.3); Blood Urea Nitrogen 9 mg/dL (9-20); Calcium 8.4 mg/dL (8.4-10.2); Carbon Dioxide 32 mmol/L (22-30); Chloride 101 mmol/L (98-107); Estimated CRCL calculation 181 ml/min; Estimated Glomerular Filt Rate > 60; Glucose 95 mg/dL (65-110); Potassium 3.4 mmol/L (3.4-5.0); Sodium 137 mmol/L (137-145)
--- NOTE | 2023-05-27 13:46 | WPDGIPROGNO ---
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 Status: Acute Assessment and Plan: MRCP concerning of possible extrinsic lesion near the pancreas and recommendation to assess with EUS- needs to rule out malignancy, also could be from inflammation/pancreatitis- liver enzymes slowly coming down, he is also on antibiotics Pending transfer to [facility] for need of EUS, then they can assess also if may need biliary decompression with ercp +/- stenting if indicated (4) Elevated liver enzymes: Code(s): R74.8 - Abnormal levels of other serum enzymes Status: Acute Assessment and Plan: trending down (5) Morbid obesity: Code(s): E66.01 - Morbid (severe) obesity due to excess calories Status: Acute (6) Upper abdominal pain: Code(s): R10.10 - Upper abdominal pain, unspecified Status: Acute Subjective Date/time seen: 05/27/23 13:46 Interval history: more comfortable but still with abdominal pain, tolerating CLD Review of Systems Review of Systems: All systems reviewed & are unremarkable except as noted in HPI and below Exam Const: General: cooperative, no acute distress, uncomfortable and obese HENMT: Face/Nose/Sinus: Normal nares present Eyes: Pupils: Equal, round and reactive pupils present Neck: Neck: supple Resp: Auscultation: clear to auscultation bilaterally Cardio: Rate: regular rate Rhythm: regular rhythm GI: Inspection: normal to inspection and distended GI Palp: Yes abdominal tenderness, Yes Soft to palpation, Yes Tenderness to palpation present (GI), No Guarding due to palpation present (GI) and No Rigid due to palpation Other: obese Skin: General skin exam: normal color Neuro: Speech: normal speech Motor exam (neuro): 5/5 motor strength present throughout Objective Data Vital Signs Vital Signs: Vital Signs - 24 hr 05/26/23 14:00 05/26/23 16:11 05/26/23 21:40 Temperature 97.5 F L 97.8 F Pulse Rate 79 84 Respiratory Rate 22 H 18 Blood Pressure 124/54 L 131/81 Pulse Oximetry 98 96 99 Oxygen Delivery Nasal Cannula Oxygen Flow Rate 1 05/27/23 06:00 05/26/23 20:00 05/27/23 00:00 Temperature 98.3 F Pulse Rate 76 90 78 Respiratory Rate 18 Blood Pressure 123/88 Pulse Oximetry 96 Oxygen Delivery Oxygen Flow Rate 05/27/23 04:00 05/27/23 08:00 05/27/23 08:00 Temperature Pulse Rate 81 76 76 Respiratory Rate 18 Blood Pressure Pulse Oximetry 96 Oxygen Delivery Nasal Cannula Oxygen Flow Rate 2 Intake/Output Intake/Output: Intake & Output 05/25/23 05/25/23 05/26/23 05/27/23 00:59 23:59 23:59 23:59 Intake Total 2940 1400 Output Total 1900 1350 Balance 1040 50 Meds/Results Medications: Active Medications Generic Name Dose Route Start Last Admin Trade Name Freq PRN Reason Stop Dose Admin Sodium Chloride 1,000 mls @ 100 mls/hr 05/24/23 15:15 05/27/23 08:51 Normal Saline Iv IV CONT Not Given .Q10H LEROY Ceftriaxone Sodium 1 gm in 50 mls @ 100 mls/hr 05/24/23 16:00 05/26/23 18:00 Rocephin 1 Gm/Ns 50 Ml IVPB 100 mls/hr Q24H LEROY Administration Azithromycin 500 mg in 250 mls @ 250 mls/hr 05/24/23 16:00 05/26/23 16:53 Zithromax IVPB 250 mls/hr Q24H LEROY Admi
[2023-05-27 14:00] VITALS: BP 147/95; PULSE 77; RESP 18; TEMP 36.2; O2SAT 100
--- NOTE | 2023-05-27 15:32 | PM.TDS ---
Transfer Discharge Sum: Prov Provider Date of admission: 05/25/23 10:08 Primary care physician: Ray Moreno, Admitting clinician: Nataliia Cotto MD Consults: 05/24/23 Consult to Physician Routine Comment: spoke to exchange @[id number] (,) Consulting Provider: Lia Grande order caller/MD group to consult: general surgery Reason for consultation: gallbladder distention Has provider been notified: Yes 05/25/23 Consult to Physician Routine Comment: spoke to dr @0515 (,) Consulting Provider: Moiz Todd order caller/MD group to consult: [facility] Reason for consultation: pancreatitis Has provider been notified: Yes DS: Admitting Diagnosis Discharge Date 05/27/23 Admitting Diagnosis (1) Acute pancreatitis: ?Qualifiers: ?Acute pancreatitis complication:?unspecified??Pancreatitis type:?unspecified pancreatitis type? Qualified Code(s):?K85.90 - Acute pancreatitis without necrosis or infection, unspecified ?Code(s): K85.90 - Acute pancreatitis without necrosis or infection, unspecified ?Status:?Acute (2) Transaminitis: ?Code(s): R74.01 - Elevation of levels of liver transaminase levels ?Status:?Acute DS: Discharge Diagnosis Discharge Diagnosis (1) Acute pancreatitis: Qualifiers: Acute pancreatitis complication: unspecified Pancreatitis type: unspecified pancreatitis type Qualified Code(s): K85.90 - Acute pancreatitis without necrosis or infection, unspecified Code(s): K85.90 - Acute pancreatitis without necrosis or infection, unspecified Status: Acute (2) Transaminitis: Code(s): R74.01 - Elevation of levels of liver transaminase levels Status: Acute Transfer Discharge Sum: Med Medications Active and Home Medications: Home Medications albuterol sulfate 90 mcg/actuation aerosol inhaler 2 inh inhalation QID PRN shortness of breath or wheezing #8.5 grams 10/28/22 [Rx Confirmed 05/24/23] naproxen 500 mg tablet 500 mg PO BID PRN pain #20 tabs 12/13/22 [Rx Confirmed 05/24/23] albuterol sulfate 90 mcg/actuation aerosol inhaler 2 puff inhalation QID PRN Shortness Of Breath Or Wheezing 05/24/23 [History Confirmed 05/24/23] cyclobenzaprine 5 mg tablet 10 mg PO HS PRN muscle spasm 05/24/23 [History Confirmed 05/24/23] ergocalciferol (vitamin D2) 50,000 unit tablet 50,000 unit PO WEEKLY 05/24/23 [History Confirmed 05/24/23] levocetirizine 5 mg tablet (Allergy Relief (levocetirizine)) 5 mg PO DAILY 05/24/23 [History Confirmed 05/24/23] phentermine 15 mg disintegrating tablet 30 mg PO DAILY 05/24/23 [History Confirmed 05/24/23] Active Medications Sodium Chloride (Normal Saline Iv) 1,000 mls @ 100 mls/hr IV CONT .Q10H [facility] Last Admin: 05/27/23 08:51 Dose: Not Given Ceftriaxone Sodium (Rocephin 1 Gm/Ns 50 Ml) 1 gm in 50 mls @ 100 mls/hr IVPB Q24H [facility] Last Admin: 05/26/23 18:00 Dose: 100 mls/hr Azithromycin (Zithromax) 500 mg in 250 mls @ 250 mls/hr IVPB Q24H [facility] Last Admin: 05/26/23 16:53 Dose: 250 mls/hr Metronidazole (Flagyl 500 Mg/Iso Soln 100 Ml) 500 mg in 100 mls @ 100 mls/hr IVPB Q8HR [facility] Last Admin: 05/27/23 15:07 Dose: 100 mls/hr Morphine Sulfate (Morphine Sulfate (*Crx) 2 Mg/Ml Inj) 3 mg IV PUSH Q1HR PRN PRN Reason: pain Last Admin: 05/27/23 05:16 Dose: 3 mg Ondansetron HCl (Ondansetron Inj 4 Mg/2 Ml Vial) 4 mg IV PUSH Q6H PRN PRN Reason: Nausea And Vomiting Last Admin: 05/26/23 21:09 Dose: 4 mg Pantoprazole Sodium (Pantoprazole Sodium Iv 40 Mg Vial) 40 mg IV PUSH QAM [facility] Last Admin: 05/27/23 10:14 Dose: 40 mg Transfer Discharge Sum: Hosp Hospital Course Hospital course: 38M w/ PMH ventral hernia repair, obesity, autoimmune hemolytic anemia and 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 He denies alcohol use. Adm
--- NOTE | 2023-05-27 15:51 | PM.PNGS ---
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 Will need further workup with EUS. Awaiting transfer to tertiary care facility. Plan I have discussed the patient's case and plan of care with Dr. Grande. Subjective Subjective Date/Time Seen: 05/27/23 14:51 Patient reports: pain is less Interval history: Patient seen this afternoon. No new complaints. Feels better with less abdominal pain. Awaiting transfer to tertiary care facility. Per nursing, attempts to transfer to [facility]. Exam GI: Inspection: non-distended GI Palp: Yes Soft to palpation, Yes Tenderness to palpation present (GI) (epigastric), No Guarding due to palpation present (GI) and No Rebound tenderness present Auscultation: normal bowel sounds Objective Data Vital Signs Vital Signs: Vital Signs - 24 hr 05/26/23 16:11 05/26/23 21:40 05/27/23 06:00 Temperature 97.8 F 98.3 F Pulse Rate 84 76 Respiratory Rate 18 18 Blood Pressure 131/81 123/88 Pulse Oximetry 96 99 96 Oxygen Delivery Nasal Cannula Oxygen Flow Rate 1 05/26/23 20:00 05/27/23 00:00 05/27/23 04:00 Temperature Pulse Rate 90 78 81 Respiratory Rate Blood Pressure Pulse Oximetry Oxygen Delivery Oxygen Flow Rate 05/27/23 08:00 05/27/23 08:00 05/27/23 14:00 Temperature 97.2 F L Pulse Rate 76 76 77 Respiratory Rate 18 18 Blood Pressure 147/95 H Pulse Oximetry 96 100 Oxygen Delivery Nasal Cannula Oxygen Flow Rate 2 Intake/Output Intake/Output: Intake & Output 05/25/23 05/25/23 05/26/23 05/27/23 00:59 23:59 23:59 23:59 Intake Total 2940 1500 Output Total 1900 1950 Balance 1040 -450 Meds/Results Medications: Active Medications Generic Name Dose Route Start Last Admin Trade Name Freq PRN Reason Stop Dose Admin Sodium Chloride 1,000 mls @ 100 mls/hr 05/24/23 15:15 05/27/23 08:51 Normal Saline Iv IV CONT Not Given .Q10H LEROY Ceftriaxone Sodium 1 gm in 50 mls @ 100 mls/hr 05/24/23 16:00 05/26/23 18:00 Rocephin 1 Gm/Ns 50 Ml IVPB 100 mls/hr Q24H LEROY Administration Azithromycin 500 mg in 250 mls @ 250 mls/hr 05/24/23 16:00 05/26/23 16:53 Zithromax IVPB 250 mls/hr Q24H LEROY Administration Metronidazole 500 mg in 100 mls @ 100 mls/hr 05/25/23 13:00 05/27/23 15:07 Flagyl 500 Mg/Iso Soln 100 Ml IVPB 100 mls/hr Q8HR LEROY Administration Morphine Sulfate 3 mg 05/25/23 12:00 05/27/23 05:16 Morphine Sulfate (*Crx) 2 Mg/Ml Inj IV PUSH 3 mg Q1HR PRN Administration pain Ondansetron HCl 4 mg 05/24/23 12:54 05/26/23 21:09 Ondansetron Inj 4 Mg/2 Ml Vial IV PUSH 4 mg Q6H PRN Administration Nausea And Vomiting Pantoprazole Sodium 40 mg 05/24/23 15:30 05/27/23 10:14 Pantoprazole Sodium Iv 40 Mg Vial IV PUSH 40 mg QAM LEROY Administration Radiology Results: ITS Impressions Head CT 05/23/23 22:01 IMPRESSION: 1. No acute intracranial abnormality. Chest/Abdomen/Pelvis CTA 05/23/23 22:15 IMPRESSION: 1. Mild thickening of the pancreatic head with subtle peripancreatic inflammation, consistent with pancreatitis. Clinically correlate. 2: Nondiagnostic study for evaluation of pulmonary embolism. 3: Focal left lower lobe airspace disease may represent atelectasis or pneumonia. Abdomen Ultrasound 05/24/23 10:24 IMPRESSION: 1. Increased echogenicity of the pancreas which could be due to pancreatitis as seen on CT comparison. 2. Dilated common bile duct and gallbladder distention, also possibly related to pancreatitis. 3. Diffuse hepatic steatosis. MRCP 05/25/23 16:58 IMPRESSION: 1. Acute interstitial pancreatitis with interval progression of stranding and small amount of nonloculated peripancreatic fluid now about the pancreatic tail. 2. Dilat
[2023-05-27] MEDS: AZITHROMYCIN 500 MG/NS 250 ML 500 MG/250 ML BAG 250 MG IVPB (16:28)
[2023-05-27] MEDS: ONDANSETRON INJ 4 MG/2 ML VIAL IV PUSH (18:02)
== END 2023-05-27 18:13 | disposition short-term general hospital (02) | DRG 439 ==
LOC: ANHED 05-24 01:09 → ANH3MEDSUR 05-24 03:22
PROVIDERS: General Practice; Internal Medicine Gastroenterology; Admitting Provider Internal Medicine; Emergency Provider Student in an Organized Health Care Education/Training Program; PCP Family Medicine; Visit Provider Hospitalist
DX: K85.10 Biliary acute pancreatitis without necrosis or infection (principal); D59.10 Autoimmune hemolytic anemia, unspecified; Z68.43 Body mass index [BMI] 50.0-59.9, adult; R74.01 Elevation of levels of liver transaminase levels; K82.8 Other specified diseases of gallbladder; K83.8 Other specified diseases of biliary tract; D72.829 Elevated white blood cell count, unspecified; E66.01 Morbid (severe) obesity due to excess calories; J45.909 Unspecified asthma, uncomplicated; Z11.52 Encounter for screening for COVID-19; Z87.891 Personal history of nicotine dependence
CPT/HCPCS: 36415; 70450; 71275; 74177; 74183; 76376; 76705; 80053; 80061; 80074; 81001; 82948; 83605; 83690; 83735; 84145; 84484; 85025; 85027; 85610; 85730; 87637; 93005; 96361; 96365; 96367; 96375; 96376; 99285; A9577; C9113; G0378; J0456; J0696; J1170; J1836; J2270; J2405; J7030; Q9967

== ENCOUNTER 2024-09-12 00:31 | Emergency (ER) | payer BC, SELFPAY ==
[2024-09-12] VITALS (12 sets, daily range): BP systolic 138–155; BP diastolic 77–88; PULSE 55–74; RESP 15–31; TEMP 36.5; O2SAT 94–98
--- NOTE | ~2024-09-12 | XR_ITS ---
EXAMINATION: XR chest 1V portable DATE: 09/12/2024 01:59 INDICATION: Infection. TECHNIQUE: A single frontal view of the chest was obtained. COMPARISON: Chest 2 views 08/21/2019, chest CT 05/23/2023 FINDINGS: There is no pneumonia, pleural effusion, or pneumothorax. Cardiomegaly is noted. IMPRESSION: 1. Cardiomegaly. Reviewed, dictated and finalized at location A. NETMAKER SUPERVISOR IMPRESSION: 1. Cardiomegaly.
--- OUTSIDE RECORDS SUMMARY | 2024-09-12 00:33 | XMS_ITS | Clinical Summary ---
Author Organization [facility] Address [address] [place] [address] Care Team Providers Care Speech Therapy Assistant Name Role Phone Ray Moreno MD Primary Care Provider [phone] Allergies No known active allergies Medications PREDNISONE ORAL Take by mouth. Active ALBUTEROL INHALATION Take by inhalation. Active albuterol sulfate (PROAIR DIGIHALER INHALATION) Take by inhalation. Active HYDROCODONE-CATARINA TAMINOPHEN ORAL Take by mouth. Active FOLIC ACID ORAL Take by mouth. Active fluticasone propionate (FLONASE BOTH NOSTRIL) Administer in each nostril. Active ELIQUIS 5 mg tablet 0 Active fenofibrate (LOFIBRA) 160 mg Tablet TK 1 T PO D 0 Active furosemide (LASIX) 20 mg tablet TK 1 T PO QAM 0 Active LANTUS SOLOSTAR U-100 INSULIN 100 unit/mL (3 mL) solution for injection INJ 60 UNI SC D 0 Active HUMALOG KWIKPEN INSULIN 100 unit/mL pen syringe INJ 10 UNI SC TID 0 Active methylPREDNISol one sodium succinate PF (SOLU-Medrol, PF,) 125 mg/2 mL Recon Soln 125 mg. Active metoprolol tartrate (LOPRESSOR) 50 mg tablet TK 1 T PO Q 12 H 0 Active mupirocin (BACTROBAN) 2 % Ointment APPLY TOPICALLY A SMALL AMOUNT TO THE AFFECTED AREA TWICE DAILY 0 Active nystatin (MYCOSTATIN) 100,000 unit/mL suspension TK 10 ML PO QID UTD FOR 10 DAYS 0 Active JOSE LUIS PEN NEEDLE 32 gauge x 5/32 Needle USE WITH INSULIN PENS QID UTD 0 Active Active Problems Problem Noted Date Diagnosed Date Autoimmune hemolytic anemia 10/07/2019 Family History Medical History Relation Name Comments Cancer Mother Relation Name Status Comments Brother Alive Father Alive Mother Alive Sister Alive Social History Tobacco Use Types Packs/Day Years Used Date Smoking Tobacco: Never Smokeless Tobacco: Never Alcohol Use Standard Drinks/Week Comments Never 0 (1 standard drink = 0.6 oz pur e alcohol) Sex and Gender Information Value Date Recorded Sex Assigned at Not on file Legal Sex Male 10:22 AM [employer] Gender Identity Not on file Sexual Orientation Not on file Last Filed Vital Signs Vital Sign Reading Time Taken Comments Blood Pressure 140/96 11/09/2019 1:51 PM CDT Pulse 91 11/09/2019 1:51 PM CDT Temperature 36.2 C (97.1 F) 11/09/2019 1:51 PM CDT Respiratory Rate - - Oxygen Saturation 97% 11/09/2019 1:51 PM CDT Inhaled Oxygen Concentration - - Weight 148.3 kg (327 lb) 11/09/2019 1:51 PM CDT Height 175.3 cm (5' 9 ) 11/09/2019 1:51 PM CDT Body Mass Index 48.29 11/09/2019 1:51 PM CDT Plan of Treatment Health Maintenance Due Date Last Done Comments PNEUMOCOCCAL VACCINE 0-64 YE ARS (1 of 2 - PCV) 1989 HEPATITIS B VACCINES (1 of 3 - 19+ 3-dose series) 2002 INFLUENZA VACCINE (#1) 2024 DTAP/TDAP/TD VACCINES (2 - T d or Tdap) 09/16/2029 09/16/2019 HPV VACCINES Aged Out No longer eligi ble based on patient's age to complete this topic Care Teams Speech Therapy Assistant Relationship Specialty Start Date End Date Ray Moreno MD PCP - General Student in an Organized Health Care Education/Training Program 08/30/19
--- OUTSIDE RECORDS SUMMARY | 2024-09-12 00:33 | XMS_ITS | Continuity of Care Document ---
Author Organization [facility] Address [address] [place] [address] [place] [address] Phone Care Team Providers Care Block Mason Name Role Phone Brown OD, Dominik Unavailable [...] Diagnoses Date Provider Providers Copied on Encounter [facility], [address] [place] [address] [address], [place], [place], [id number], tel:[phone] [facility] No Information 0-200 8 Brown OD Dominik. [address] [facility] [address], [place], [address], [place]. tel:[phone] Office/outpat ient Visit, Est [facility], [address] [place] [address] [address], [place], [place], [id number], [place] tel:[phone] [facility] No Information 1-200 7 Brown OD Dmoinik. [address] [facility] [address], [place], [address], [place]. tel:[phone] Referring Provider: Dominik Brown OD A, [address] [place], [place] [address]ate [address], [place], [place], [facility]. tel:[phone] [facility], [address] [place], [place] [address], [place], [place], [id number], tel:[phone] [facility] No Information 0-200 7 Brown OD Dominik. [address] [place] [address] [address], [place], [place], [facility], . tel:[phone] Referring Provider: Dominik Mccormack, [address] [place], [place] [address]ate [address], [place], [place], [facility]. tel:[phone] [facility], [address] [place], [place] [address], [place], [place], [id number], tel:[phone] [facility] No Information 2-200 7 Brown OD Dominik. [address] [place] [address] [address], [place], [facility], . tel:[phone] Referring Provider: Dominik Brown OD A, [address] [place] [address] [address], [place], [facility]. tel:[phone] [facility], [address] [place], [place] [address], [place], [place], [id number], tel:[phone] [facility] No Information 5-200 7 Brown OD Dominik. [address] [place] [address] [address], [address], [place], [facility], . tel:[phone] Family History Family Member Type Diagnosis Age At Onset No Information Payers Payer name Insurance type Covered alliance party ID Authorbulla daisy(s) Medicaid [facility] [id number] Social History Type Description Quantity Date Captured [...]
--- OUTSIDE RECORDS SUMMARY | 2024-09-12 00:33 | XMS_ITS | Clinical Summary ---
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 Gender Identity Not on file Sexual Orientation Not on file Plan of Treatment Upcoming Encounters Date Type Department Care Team (Late st Contact Info) Description 12/22/2024 10:00 AM CDT Office Visit [facility] - [address], [address] [place] [address] Bernice Echeverria MD [address] [place] [address] Health Maintenance Due Date Last Done Comments Annual Physical 1986 Hepatitis C 2001 DTaP, Tdap and Td Vaccines ( 1 - Tdap) 2002 Hepatitis B Vaccines (1 of 3 - 19+ 3-dose series) 2002 COVID-19 Vaccine (2023-2 5 season) 2024 Influenza Adult (#1) 2024 HPV Vaccines Aged Out No longer eligi ble based on patient's age to complete this topic Meningococcal B Vaccine Aged Out No l onger eligible based on patient's age to complete this topic Meningococcal Vaccine Aged Out No javy mushtaq eligible based on patient's age to complete this topic Pneumococcal Vaccine: Pediat rics (0 to 5 Years) and At-Risk Patients (6 to 64 Years) Aged Out No longer eligible b ased on patient's age to complete this topic RSV Immunizations Under 20 Months Aged Out No longer eligible based on patient's age to complete this topic Insurance [facility]
--- OUTSIDE RECORDS SUMMARY | 2024-09-12 00:33 | XMS_ITS | Clinical Summary ---
Author Organization [facility] Address [address] [place] [address] Care Team Providers Care Senior Landscape Architect Name Role Phone Ray Moreno MD Primary Care Provider [phone] Source Comments [facility],non-owned Affiliates and Associated Physician Practices is amultiple site organization consisting of ambulatory clinics and hospital sitesin [place], [place], [place] and [place]. This disclosure is being madepursuant to the Care Everywhere program and may not contain all information available regarding this patient. Last updated 18.[facility] Allergies Active Allergy Reactions Criticality Noted Date Comments Peanut-Derived Other 05/27/2023 Throat irritation Medications * Be aware that medications may not be up to date on this document. Alwaysverify current medications with the patient. Medication Sig Dispensed Refills Start Date End Date Status traMADol (Ultram) 50 MG tablet Take 1 (one) tablet by mouth as needed for Pain Active cyclobenzaprine (Flexeril) 10 MG tablet Take 1 (one) tablet by mouth 3 times daily Active vitamin D, ergocalciferol, (Drisdol) 1.25 MG (52728 UT) capsule Take 1 (one) capsule by mouth every 7 days Active naproxen (Naprosyn) 500 MG tablet Take 1 (one) tablet by mouth 4 times daily as needed for Pain Active lisinopril (Prinivil; Zestril) 2.5 MG tablet Take 1 (one) tablet by mouth once daily Active Active Problems Problem Noted Date Diagnosed Date Biliary obstruction 05/26/2023 Social History Tobacco Use Types Packs/Day Years Used Date Smoking Tobacco: Never Smokeless Tobacco: Never Tobacco Cessation:Counseling Given: Yes AUDIT-C Answer Date Recorded Q1: How often do you have a drink containing alcohol? Never 05/27/2023 Q2: How many drinks containi ng alcohol do you have on a typical day when you are drinking? Patient does not drink Q3: How often do you have si x or more drinks on one occasion? Never 05/27/2023 Overall Financial Resource Strain (CARDIA) Answe r Date Recorded How hard is it for you to pa y for the very basics like food, housing, medical care, and heating? Not hard at all 05/27/2023 [facility] - Occupational Stress Questionnaire Answer Date Recorded Do you feel stress - tense, restless, nervous, or anxious, or unable to sleep at night because your mind is troubled all the time - these days? Not at all 05/27/2023 Hunger Vital Sign Answer Date Recorded Within the past 12 months, y ou worried that your food would run out before you got the money to buy more. Never true 05/27/20 23 Within the past 12 months, t he food you bought just didn't last and you didn't have money to get more. Never true 05/27/2023 PRAPARE - Transportation Answer Date Re corded In the past 12 months, has l ack of transportation kept you from medical appointments or from getting medications? No 01/2023 In the past 12 months, has l ack of transportation kept you from meetings, work, or from getting things needed for daily living? No 05/27/2023 Housing Stability Vital Sign Answer Chidi e Recorded In the last 12 months, was t here a time when you were not able to pay the mortgage or rent on time? No 05/27/2023 In the last 12 months, how many places have you lived? 1 05/27/2023 In the last 12 months, was t here a time when you did not have a steady place to sleep or slept in a longterm (including now)? No 05/27/2023 Sex and Gender Information Value Date Recorded Sex Assigned at Male 02/14/2024 3:53 PM CDT Gender Identity Male 02/14/2024 3:53 PM CDT Sexual Orientation Straight 02/14/2024 3: 53 PM CDT Last Filed Vital Signs Vital Sign Reading Time Taken Comments Blood Pressure 137/85 05/29/2023 11:19 AM TELEGRAPH REPEATER TECHNICIAN Pulse 67 05/29/2023 11:19 AM TELEGRAPH REPEATER TECHNICIAN Temperature 37 C (98.6 F) 05/29/2023 11:19 AM TELEGRAPH REPEATER TECHNICIAN Respiratory Rate 18 05/29/2023 3:32 AM TELEGRAPH REPEATER TECHNICIAN Oxygen Saturation 100% 05/29/2023 11: 19 AM TELEGRAPH REPEATER TECHNICIAN Inhaled Oxygen Concentration - - Weight 156.1 kg (344 lb 2.2 oz) 023 10:09 PM TELEGRAPH REPEATER TECHNICIAN Height 175.3 cm (5' 9.02 ) 05/27/2023 1 0:09 PM TELEGRAPH REPEATER TECHNICIAN Body Mass Index 50.8 05/27/2023 10:09 PM TELEGRAPH REPEATER TECHNICIAN Plan of Treatment Health Maintenance Due Date Last Done Comments LIPID TESTING 1983 HIV SCREENING 1998 HEPATITIS C SCREENING 03/13/2001 DTAP/TDAP/TD VACCINES (1 - Tdap) 2002 HEPATITIS B VACCINE (1 of 3 - 19+ 3-dose series) 2002 COVID-19 VACCINE (3 - 2023-2 5 season) 2024 10/09/2021, 09/12/2021 DEPRESSION SCREENING 07/21/2024 ZOSTER VACCINE (1 of 2) 2033 INFLUENZA VACCINE Completed 07/01/2024, 05/16/2020 HIB VACCINE Aged Out No longer eligi ble based on patient's age to complete this topic HPV VACCINE Aged Out No longer eligi ble based on patient's age to complete this topic MENINGOCOCCAL (Group B) VACCINE Aged Out No longer eligible b ased on patient's age to complete this topic MENINGOCOCCAL VACCINE Aged Out No javy mushtaq eligible based on patient's age to complete this topic PNEUMOCOCCAL VACCINE Aged Out No long er eligible based on patient's age to complete this topic Advance Directives * Full Code (Latest Code Status on File) Date Activated Date Inactivated Comments 05/27/2023 10:17 PM 05/29/2023 1:19 PM Care Teams Senior Landscape Architect Relationship Specialty Start Date End Date Ray Moreno MD [address] [place] [address] PCP - General Family Medicine 05/28/23
--- OUTSIDE RECORDS SUMMARY | 2024-09-12 00:33 | XMS_ITS | Referral Summary ---
Author Organization [facility] Address [address] [place] [address] Care Team Providers Care Manager Care Name Role Phone Ray Moreno MD Primary Care Provider [phone] Source Comments [facility],non-owned Affiliates and Associated Physician Practices is amultiple site organization consisting of ambulatory clinics and hospital sitesin [place], [place], [place] and [place]. This disclosure is being madepursuant to the Care Everywhere program and may not contain all information available regarding this patient. Last updated 18.[facility] Allergies Active Allergy Reactions Criticality Noted Date [...] Active vitamin D, ergocalciferol, (Drisdol) 1.25 MG (25070 UT) capsule Take 1 (one) capsule by [...] and heating? Not hard at all 05/27/2023 [facility] - Occupational Stress [...] place to sleep or slept in a mcc (including now)? No 05/27/2023 Sex and Gender Information Value Date Recorded Sex Assigned at Male 02/14/2024 3:53 PM CDT Gender Identity Male 02/14/2024 3:53 PM CDT Sexual Orientation Straight 02/14/2024 3: 53 PM CDT Last Filed Vital Signs Vital Sign Reading Time Taken Comments Blood Pressure 137/85 05/29/2023 11:19 AM NURSING HOME SOCIAL WORKER Pulse 67 05/29/2023 11:19 AM NURSING HOME SOCIAL WORKER Temperature 37 C (98.6 F) 05/29/2023 11:19 AM NURSING HOME SOCIAL WORKER Respiratory Rate 18 05/29/2023 3:32 AM NURSING HOME SOCIAL WORKER Oxygen Saturation 100% 05/29/2023 11: 19 AM NURSING HOME SOCIAL WORKER Inhaled Oxygen Concentration - - Weight 156.1 kg (344 lb 2.2 oz) 023 10:09 PM NURSING HOME SOCIAL WORKER Height 175.3 cm (5' 9.02 ) 05/27/2023 1 0:09 PM NURSING HOME SOCIAL WORKER Body Mass Index 50.8 05/27/2023 10:09 PM NURSING HOME SOCIAL WORKER Functional Status Functional Status Response Date of Assess ment Is person deaf or have serious hearing difficult y? No 05/27/2023 Is person blind or have serious difficulty seein g? No 05/27/2023 Does person have serious dif ficulty walking/climbing stairs? No 05/27/2023 Does person have difficulty dressing/bathing? No 05/27/2023 Does person have difficulty doing errands alone? No 05/27/2023 Cognitive Status Response Date of Assessm ent Does person have difficulty concentrating/remembering/making decisions? No 05/27/2023 Plan of Treatment Not on file Advance Directives * Full Code (Latest Code Status on File) Date Activated Date Inactivated Comments 05/27/2023 10:17 PM 05/29/2023 1:19 PM Care Teams Manager Care Relationship Specialty Start Date End Date Ray Moreno MD [address] [place] [id number] PCP - General Family Medicine 05/28/23
--- OUTSIDE RECORDS SUMMARY | 2024-09-12 00:33 | XMS_ITS | Patient Health Summary ---
Author Organization [facility] Address [address] [place] [address] Care Team Providers Care Computer Peripheral Equipment Operator Name Role Phone Ray Moreno MD Primary Care Provider [phone] Note from [facility],non-owned Affiliates and Associated Physician Practices is amultiple site organization consisting of ambulatory clinics and hospital sitesin [place], [place], [place] and [place]. This disclosure is being madepursuant to the Care Everywhere program and may not contain all information available regarding this patient. Last updated 18.[facility] Allergies * Peanut-Derived(Other) Medications * Be aware that medications may not be up to date on this document. Alwaysverify current medications with the patient. * traMADol (Ultram) 50 MG tablet Take 1 (one) tablet by mouth as needed for Pain * cyclobenzaprine (Flexeril) 10 MG tablet Take 1 (one) tablet by mouth 3 times daily * vitamin D, ergocalciferol, (Drisdol) 1.25 MG (76422 UT) capsule Take 1 (one) capsule by mouth every 7 days * naproxen (Naprosyn) 500 MG tablet Take 1 (one) tablet by mouth 4 times daily as needed for Pain * lisinopril (Prinivil; Zestril) 2.5 MG tablet Take 1 (one) tablet by mouth once daily Active Problems Problem Noted Date Diagnosed Date [...] and heating? Not hard at all 05/27/2023 [facility] - Occupational Stress [...] place to sleep or slept in a nursing home (including now)? No 05/27/2023 Sex and Gender Information Value Date Recorded Sex Assigned at Male 02/14/2024 3:53 PM CDT Gender Identity Male 02/14/2024 3:53 PM CDT Sexual Orientation Straight 02/14/2024 3: 53 PM CDT Last Filed Vital Signs Vital Sign Reading Time Taken Comments Blood Pressure 137/85 05/29/2023 11:19 AM MIXING ROLL OPERATOR Pulse 67 05/29/2023 11:19 AM MIXING ROLL OPERATOR Temperature 37 C (98.6 F) 05/29/2023 11:19 AM MIXING ROLL OPERATOR Respiratory Rate 18 05/29/2023 3:32 AM MIXING ROLL OPERATOR Oxygen Saturation 100% 05/29/2023 11: 19 AM MIXING ROLL OPERATOR Inhaled Oxygen Concentration - - Weight 156.1 kg (344 lb 2.2 oz) 023 10:09 PM MIXING ROLL OPERATOR Height 175.3 cm (5' 9.02 ) 05/27/2023 1 0:09 PM MIXING ROLL OPERATOR Body Mass Index 50.8 05/27/2023 10:09 PM MIXING ROLL OPERATOR Procedures * GLUCOSE - POINT OF CARE(Performed 05/29/2023) * PHOSPHORUS BLOOD(Performed 05/29/2023) * TRIGLYCERIDES BLOOD(Performed 05/29/2023) * COMPREHENSIVE METABOLIC PANEL(Performed 05/29/2023) * CANCER ANTIGEN (CA) 19-9(Performed 05/29/2023) * CBC W/O DIFFERENTIAL(Performed 05/29/2023) * MAGNESIUM BLOOD(Performed 05/29/2023) * GLUCOSE - POINT OF CARE(Performed 05/29/2023) * GLUCOSE - POINT OF CARE(Performed 05/28/2023) * US ABDOMEN LIMITED(Performed 05/28/2023) Performed for Biliary obstruction (HCC) * GLUCOSE - POINT OF CARE(Performed 05/28/2023) * OLGA LIDIA BLOOD SCREEN W/REFLEX TITER(Performed 05/28/2023) * IGG SUBCLASS 4(Performed 05/28/2023) * PT-INR [facility](Performed 05/28/2023) * GLUCOSE - POINT OF CARE(Performed 05/28/2023) * HEMOGLOBIN A1C(Performed 05/28/2023) * GLUCOSE - POINT OF CARE(Performed 05/28/2023) * LACTIC ACID BLOOD(Performed 05/27/2023) * PHOSPHORUS BLOOD(Performed 05/27/2023) * MAGNESIUM BLOOD(Performed 05/27/2023) * COMPREHENSIVE METABOLIC PANEL(Performed 05/27/2023) * CBC W AUTO DIFFERENTIAL(Performed 05/27/2023) * BONE MARROW BIOPSY (STL)(Performed 08/20/2019) * FLOW CYTOMETRY BONE MARROW(Performed 08/18/2019) Results * GLUCOSE - POINT OF CARE (05/29/2023 5:50 AM MIXING ROLL OPERATOR) Only the most recent of6 resultswithin the time period is included. Glucose WB/POC 96 70 - 115 mg/dL 05/29/2023 5:51 AM MIXING ROLL OPERATOR [facility] Specimen Type Cap Fingerstick 2022 5:51 AM MIXING ROLL OPERATOR [facility] Blood BLOOD SPECIMEN / Unknown 05/29/2023 5:50 AM MIXING ROLL OPERATOR 05/29/2023 5:51 AM MIXING ROLL OPERATOR Jelly Archibald MD LAB - POINT OF CARE ORDERABLES [address] [address], [facility] [phone] * CANCER ANTIGEN (CA) 19-9 (05/29/2023 4:48 AM MIXING ROLL OPERATOR) CA 19-9 15 <=35 U/mL 05/31/2023 9:21 AM MIXING ROLL OPERATOR [employer] ([facility]) Comment: INTERPRETIVE INFORMATION: Cancer Antigen-GI (CA 19-9) This test uses Joelle CA 19-9 electrochemiluminescent immunoassay. Results obtained with different test methods or kits cannot be used interchangeably. CA 19-9 value is useful in monitoring pancreatic, hepatobiliary, gastric, hepatocellular, and colorectal cancer. CA 19-9 value, regardless of level, should not be interpreted as absolute evidence of the presence or absence of malignant disease. Performed By: [employer] [address] [place] [address] Dining Service Inspector: Seb Salgado MD, PhD CLIA Number: [id number] Blood BLOOD SPECIMEN / Unknown Lab Venipuncture / Unknown 05/29/2023 4:48 AM MIXING ROLL OPERATOR 05/29/2023 5:06 AM MIXING ROLL OPERATOR Choco Vila MD LAB - CHEMISTRY KAY ABRAHAM [facility]) [address] [place] [address], [facility] * (ABNORMAL) CBC W/O DIFFERENTIAL (05/29/2023 4:48 AM MIXING ROLL OPERATOR) WBC 7.5 3.5 - 10.5 10 3/uL 05/29/2023 5:30 AM [facility] RBC 4.55 4.30 - 5.70 10 6/uL 05/29/2023 5:30 AM [facility] Hemoglobin 11.9(L) 12.0 - 17.6 g/dL 05/29/2023 5:30 AM [facility] Hematocrit 38.3 35.2 - 51.7 % 05/29/2023 5:30 AM [facility] MCV 84.2 80.7 - 98.3 fL 05/29/2023 5:30 AM [facility] MCH 26.2(L) 26.7 - 34.0 pg 05/29/2023 5:30 AM [facility] MCHC 31.1 30.8 - 35.9 g/dL 05/29/2023 5:30 AM [facility] RDW-SD 49.3 36.0 - 50.0 fL 05/29/2023 5:30 AM [facility] RDW-CV 16.2(H) 11.2 - 14.8 % 05/29/2023 5:30 AM [facility] Platelet Count 211 150 - 400 10 3/uL 05/29/2023 5:30 AM [facility] MPV 10.1 9.4 - 12.9 fL 05/29/2023 5:30 AM [facility] nRBC Absolute 0.00 0 10 3/uL 05/29/2023 5:30 AM [facility] nRBC Auto 0.0 0 /100 WBC 05/29/2023 5:30 AM [facility] Blood BLOOD SPECIMEN / Unknown Lab Venipuncture / Unknown 05/29/2023 4:48 AM MIXING ROLL OPERATOR 05/29/2023 5:11 AM MIXING ROLL OPERATOR Choco Vila MD LAB - HEMATOLOGY ORD ERABLES [facility] [address] [place] [address], [facility] [phone] * TRIGLYCERIDES BLOOD (05/29/2023 4:48 AM MIXING ROLL OPERATOR) Triglycerides 101 <150 mg/dL 05/29/2023 5:35 AM [facility] Comment: ATP III Classification of Triglycerides: <150 mg/dL: Normal 150 - 199 mg/dL: Borderline High 200 - 400 mg/dL: High >500 mg/dL: Very High Blood BLOOD SPECIMEN / Unknown Lab Venipuncture / Unknown 05/29/2023 4:48 AM MIXING ROLL OPERATOR 05/29/2023 5:11 AM MIXING ROLL OPERATOR Jelly Archibald MD LAB - CHEMISTRY KAY ABRAHAM [facility] Organization Address City/State/ZIP Co de Phone Number [facility] [address] [place] [address], [facility] [phone] * (ABNORMAL) COMPREHENSIVE METABOLIC PANEL (05/29/2023 4:48 AM MIXING ROLL OPERATOR) Only the most recent of2 resultswithin the time period is included. Pathologist [facility] BUN 10 7 - 26 mg/dL 05/29/2023 5:35 AM [facility] Creatinine 0.87 0.71 - 1.16 mg/dL 05/29/2023 5:35 AM [facility] Sodium 142 136 - 145 mmol/L 05/29/2023 5:35 AM [facility] Potassium 3.3(L) 3.5 - 4.5 mmol/L 05/29/2023 5:35 AM [facility] Chloride 107 98 - 107 mmol/L 05/29/2023 5:35 AM [facility] CO2 26 22 - 29 mmol/L 05/29/2023 5:35 AM [facility] Glucose 102 70 - 115 mg/dL 05/29/2023 5:35 AM [facility] Calcium 8.6 8.4 - 10.2 mg/dL 05/29/2023 5:35 AM [facility] Protein Total 6.0 6.0 - 8.3 g/dL 05/29/2023 5:35 AM [facility] Albumin 2.4(L) 3.4 - 5.0 g/dL 05/29/2023 5:35 AM [facility] Bilirubin Total 1.2 0.2 - 1.2 mg/dL 05/29/2023 5:35 AM [facility] Alkaline Phosphatase 178(H) 40 - 150 U/L 05/29/2023 5:35 AM [facility] ALT 103(H) 5 - 55 U/L 05/29/2023 5:35 AM [facility] AST 32 5 - 34 U/L 05/29/2023 5:35 AM [facility] Anion Gap 9 6 - 16 05/29/2023 5:35 AM [facility] BUN/Creatinine Ratio 11 7 - 23 05/29/2023 5:35 AM [facility] Osmolality Calculated 293 275 - 295 mOsm/kg 05/29/2023 5:35 AM [facility] Albumin/Globulin Ratio 0.7(L) 1.1 - 2.3 05/29/2023 5:35 AM [facility] eGFR by CKD-EPI >90 >=90 mL/min/1.7 3 m2 05/29/2023 5:35 AM [facility] Blood BLOOD SPECIMEN / Unknown Lab Venipuncture / Unknown 05/29/2023 4:48 AM MIXING ROLL OPERATOR 05/29/2023 5:11 AM MIXING ROLL OPERATOR Jelly Archibald MD LAB - CHEMISTRY ORDBarbara ABRAHAM [facility] [address] [place] [address], [facility] [phone] * (ABNORMAL) PHOSPHORUS BLOOD (05/29/2023 4:48 AM MIXING ROLL OPERATOR) Only the most recent of2 resultswithin the time period is included. Phosphorus 2.6(L) 2.8 - 5.1 mg/dL 05/29/2023 5:38 AM [facility] Blood BLOOD SPECIMEN / Unknown Lab Venipuncture / Unknown 05/29/2023 4:48 AM MIXING ROLL OPERATOR 05/29/2023 5:11 AM MIXING ROLL OPERATOR Jelly Archibald MD LAB - CHEMISTRY ORDBarbara ABRAHAM [address] [address], [facility] [phone] * MAGNESIUM BLOOD (05/29/2023 4:48 AM MIXING ROLL OPERATOR) Only the most recent of2 resultswithin the time period is included. Magnesium 2.0 1.6 - 2.6 mg/dL 05/29/2023 5:35 AM MIXING ROLL OPERATOR [facility] Blood BLOOD SPECIMEN / Unknown Lab Venipuncture / Unknown 05/29/2023 4:48 AM MIXING ROLL OPERATOR 05/29/2023 5:11 AM MIXING ROLL OPERATOR Choco Vila MD LAB - CHEMISTRY KAY ABRAHAM [address] [address], [facility] [phone] * US ABDOMEN LIMITED (05/28/2023 4:46 PM MIXING ROLL OPERATOR) Anatomical Region Laterality Modality Abdomen Ultrasound 05/29/2023 9:19 AM MIXING ROLL OPERATOR Impressions 05/29/2023 12:53 PM MIXING ROLL OPERATOR IMPRESSION: 1.Hepatic steatosis. No discrete hepatic lesion or intrahepatic biliary dilation. Patent hepatic vasculature. 2.Subtle gallbladder wall thickening is nonspecific, but may be related to hepatic steatosis. No evidence of cholelithiasis or acute cholecystitis.Mildly prominent common bile duct. 3.Borderline splenomegaly. Report dictated by Fredrick Moreno MD, (founder ceo & president). > Dictated by Fredrick Moreno MD (Director Independent) 05/29/2023 9:19 AM IAngie MD have personally reviewed and interpreted this examination/study. > Interpreting Provider: Angie Bose MD on 05/29/2023 12:53 PM Narrative 05/29/2023 12:53 PM MIXING ROLL OPERATOR PROCEDURE: US ABDOMEN LIMITED, DATE/TIME OF EXAM: 05/28/2023 4:46 PM, LOCATION [facility] INDICATION: K83.1: Biliary obstruction ADDITIONAL CLINICAL INFORMATION: Ordering Provider Reason For Exam: biliary obstruction COMPARISON: None. FINDINGS: The liver is increased in echogenicity. No discrete hepatic mass or intrahepatic biliary dilation is seen. Color Doppler evaluation demonstrates patency of the hepatic and portal veins. No gallstones or pericholecystic fluid is seen. The gallbladder wall is mildly thickened, measuring 4 mm. Sonographic Marlow's sign is negative. The common bile duct is mildly prominent, measuring 6 mm. The right kidney measures 13.0 cm in length. Limited views of the right kidney reveal no evidence of nephrolithiasis or hydronephrosis. The spleen measures 13.7 cm in length. Splenule present. The visible pancreas is normal in echogenicity. No ascites is present. Procedure Note Radha Bose MD - 05/29/2023 PROCEDURE: US ABDOMEN LIMITED, DATE/TIME OF EXAM: 05/28/2023 4:46 PM, LOCATION [facility] INDICATION: K83.1: Biliary obstruction ADDITIONAL CLINICAL INFORMATION: Ordering Provider Reason For Exam: biliary obstruction COMPARISON: None. FINDINGS: The liver is increased in echogenicity. No discrete hepatic mass or intrahepatic biliary dilation is seen. Color Doppler evaluation demonstrates patency of the hepatic and portal veins. No gallstones or pericholecystic fluid is seen. The gallbladder wall is mildly thickened, measuring 4 mm. Sonographic Marlow's sign is negative. The common bile duct is mildly prominent, measuring 6 mm. The right kidney measures 13.0 cm in length. Limited views of the right kidney reveal no evidence of nephrolithiasis or hydronephrosis. Thespleen measures 13.7 cm in length. Splenule present. The visible pancreas is normal in echogenicity. No ascites is present. IMPRESSION: 1.Hepatic steatosis. No discrete hepatic lesion or intrahepatic biliary dilation. Patent hepatic vasculature. 2.Subtle gallbladder wall thickening is nonspecific, but may be relatedto hepatic steatosis. No evidence of cholelithiasis or acute cholecystitis.Mildly prominent common bile duct. 3.Borderline splenomegaly. Report dictated by Fredrick Moreno MD, (founder ceo & president). > Dictated by Fredrick Moreno MD (Director Independent) 05/29/2023 9:19 AM Angie Lau MD have personally reviewed and interpreted this examination/study. > Interpreting Provider: Angie Bose MD on 05/29/2023 12:53 PM Jelly Archibald MD US ORDERABLES * IGG SUBCLASS 4 (05/28/2023 10:24 AM MIXING ROLL OPERATOR) IgG Subclass 4 38 1 - 123 mg/dL 05/30/2023 12:07 AM MIXING ROLL OPERATOR [facility] [employer]ri[employer] ([facility]) Comment: REFERENCE INTERVAL: Immunoglobulin G Subclass 4 Access complete set of age- and/or gender-specific reference intervals for this test in the [facility] Test Directory ([employer]). Performed By: [employer] [address] [place] [address] Dining Service Inspector: Seb Salgado MD, PhD CLIA Number: [id number] Blood BLOOD SPECIMEN / Unknown Lab Venipuncture / Unknown 05/28/2023 10:24 AM MIXING ROLL OPERATOR 05/28/2023 11:15 AM MIXING ROLL OPERATOR Choco Vila MD LAB - CHEMISTRY KAY ABRAHAM [facility] Organization Address City/State/ZIP Co de Phone Number [facility]) [address] [place] [address] * OLGA LIDIA BLOOD SCREEN W/REFLEX TITER (05/28/2023 10:24 AM MIXING ROLL OPERATOR) OLGA LIDIA IgG None Detected None Detected 05/29/2023 6:55 PM MIXING ROLL OPERATOR [facility] [employer] ([facility]) Comment: If suspicion of connective tissue disease is strong and OLGA LIDIA EIA is negative, consider testing for OLGA LIDIA by IFA ([id number]). INTERPRETIVE INFORMATION: Anti-Nuclear Antibodies (OLGA LIDIA), IgG by NELLIE Antinuclear Antibodies (OLGA LIDIA), IgG by NELLIE: OLGA LIDIA specimens are screened using enzyme-linked immunosorbent assay (NELLIE) methodology. All NELLIE results reported as Detected are further tested by indirect fluorescent assay (IFA) using HEp-2 substrate with an IgG-specific conjugate. The OLGA LIDIA NELLIE screen is designed to detect antibodies against dsDNA, histones, SS-A (Ro), SS-B (La), Medley, Medley/CONCRETING SUPERVISOR, Scl-70, Roshni-1, centromeric proteins, other antigens extracted from the HEp-2 cell nucleus. OLGA LIDIA NELLIE assays have been reported to have lower sensitivities than OLGA LIDIA IFA for systemic autoimmune rheumatic diseases (SARD). Negative results do not necessarily rule out SARD. Performed By: [employer] [address] [place] [address] Dining Service Inspector: Seb Salgado MD, PhD CLIA Number: [id number] Blood BLOOD SPECIMEN / Unknown Lab Venipuncture / Unknown 05/28/2023 10:24 AM MIXING ROLL OPERATOR 05/28/2023 11:15 AM MIXING ROLL OPERATOR Choco Vila MD LAB - CHEMISTRY ORDE JARAD Performing Organization Address City/[facility]/ZIP Co de Phone Number [address] * PT-INR [facility] (05/28/2023 8:22 AM MIXING ROLL OPERATOR) PT 13.8 12.1 - 14.8 Seconds 05/28/2023 9:04 AM [facility] INR 1.1 See Comment 05/28/2023 9:04 AM [facility] Comment:The suggested therap eutic range for standard coumadin (warfarin) therapy is an INR of 2.0-3.0. For high-risk patients (Mechanical Mitral Valve Prosthesis, etc.), the suggested prophylactic therapeutic range is an INR of 2.5-3.5. Blood BLOOD SPECIMEN / Unknown Lab Venipuncture / Unknown 05/28/2023 8:22 AM MIXING ROLL OPERATOR 05/28/2023 8:38 AM MIXING ROLL OPERATOR Choco Vila MD LAB - COAGULATION OR DERABLES Performing Organization Address City/[facility]/ZIP Co de Phone Number [facility] [address] [id number] [phone] * HEMOGLOBIN A1C (05/28/2023 4:32 AM MIXING ROLL OPERATOR) Hemoglobin A1c 5.2 <=5.6 % 05/28/2023 10:55 AM [facility] Estimated Average Glucose 103 mg/dL 05/28/2023 10:55 AM [facility] Comment: HbA1c Interpretation: Normal : < 5.7% Pre-diabetes: 5.7-6.4% Diabetes: Equal to or greater than 6.5% Test results diagnostic of diabetes should be repeated for confirmation. Treatment target values recommended by ADA and other clinical organizations should be used to evaluate metabolic control in patients. Reference: [place] [employer], Standards of Care in Diabetes -2020 In patients 70 years and older consider HbA1c target range of 7.0-7.5% (Reference: Isaias Mccormack et al. JAMDA. 2012) The Sebia assay for the measurement of HbA1c is a National Glycohemoglobin Standardization Program (NGSP) certified method. Blood BLOOD SPECIMEN / Unknown Lab Venipuncture / Unknown 05/28/2023 4:32 AM MIXING ROLL OPERATOR 05/28/2023 4:45 AM MIXING ROLL OPERATOR Choco Vila MD LAB - CHEMISTRY KAY ABRAHAM [address] [address], [facility] [phone] * LACTIC ACID BLOOD (05/27/2023 11:10 PM MIXING ROLL OPERATOR) Pathologist [facility] Lactic Acid-Stat 0.9 <=2.0 mmol/L 05/27/2023 11:37 PM [facility] Blood BLOOD SPECIMEN / Unknown Lab Venipuncture / Unknown 05/27/2023 11:10 PM MIXING ROLL OPERATOR 05/27/2023 11:17 PM MIXING ROLL OPERATOR Choco Vila MD LAB - CHEMISTRY KAY ABRAHAM [address] [address], [facility] [phone] * (ABNORMAL) CBC W AUTO DIFFERENTIAL (05/27/2023 11:06 PM MIXING ROLL OPERATOR) WBC 7.6 3.5 - 10.5 10 3/uL 05/27/2023 11:20 PM [facility] RBC 4.34 4.30 - 5.70 10 6/uL 05/27/2023 11:20 PM [facility] Hemoglobin 11.5(L) 12.0 - 17.6 g/dL 05/27/2023 11:20 PM [facility] Hematocrit 36.7 35.2 - 51.7 % 05/27/2023 11:20 PM [facility] MCV 84.6 80.7 - 98.3 fL 05/27/2023 11:20 PM [facility] MCH 26.5(L) 26.7 - 34.0 pg 05/27/2023 11:20 PM [facility] MCHC 31.3 30.8 - 35.9 g/dL 05/27/2023 11:20 PM [facility] RDW-SD 48.0 36.0 - 50.0 fL 05/27/2023 11:20 PM [facility] RDW-CV 15.5(H) 11.2 - 14.8 % 05/27/2023 11:20 PM [facility] Platelet Count 188 150 - 400 10 3/uL 05/27/2023 11:20 PM [facility] MPV 10.5 9.4 - 12.9 fL 05/27/2023 11:20 PM [facility] nRBC Absolute 0.00 0 10 3/uL 05/27/2023 11:20 PM [facility] nRBC Auto 0.0 0 /100 WBC 05/27/2023 11:20 PM [facility] Neutrophils % 75.4(H) 35.0 - 70.0 % 05/27/2023 11:20 PM [facility] Lymphocytes % 11.5(L) 20.0 - 43.0 % 05/27/2023 11:20 PM [facility] Monocytes % 8.6 5.0 - 13.0 % 05/27/2023 11:20 PM [facility] Eosinophils % 3.6 0.0 - 6.0 % 05/27/2023 11:20 PM [facility] Basophil % 0.1 0.0 - 2.0 % 05/27/2023 11:20 PM [facility] Neutrophils Absolute 5.70 1.60 - 7.00 10 3/uL 05/27/2023 11:20 PM [facility] Lymphocyte Absolute 0.87(L) 1.10 - 3.90 10 3/uL 05/27/2023 11:20 PM [facility] Monocytes Absolute 0.65 0.26 - 1.07 10 3/uL 05/27/2023 11:20 PM [facility] Eosinophils Absolute 0.27 0.00 - 0.47 10 3/uL 05/27/2023 11:20 PM [facility] Basophils Absolute 0.01 0.00 - 0.08 10 3/uL 05/27/2023 11:20 PM [facility] Immature Granulocytes % 0.8 0.0 - 1.0 % 05/27/2023 11:20 PM [facility] Immature Granulocytes Absolute 0.06 05/27/2023 11:20 PM [facility] Blood BLOOD SPECIMEN / Unknown Venipuncture / Unknown 05/27/2023 11:06 PM MIXING ROLL OPERATOR 05/27/2023 11:10 PM MIXING ROLL OPERATOR Choco Vila MD LAB - HEMATOLOGY ORD ERABLES [facility] [address] [place] [address], [facility] [phone] * BONE MARROW BIOPSY (STL) (08/20/2019 8:21 AM [facility]) Case Report Bone Marrow Patholog y Report Case: [id number] Authorizing Provider: Tenzin Berry MD Collected: 08/20/2019 08:21 AM Ordering Location: [facility] Pathology Lab Received: 08/20/2019 08:22 AM Pathologist: Patricia Irwin MD Specimens: A) - Bone Marrow Core, AB20-5 B) - Bone Marrow Clot, AB20-5 C) - Blood Peripheral, AB20-5 D) - Bone Marrow Aspirate, AB20-5 08/20/2019 6:42 PM [facility] Final Diagnosis Bone marrow, aspirate, clot section, and core biopsy: - Normocellular marrow with maturing trilineage hematopoiesis. - No evidence of lymphoma or high-grade myeloid neoplasm. - See description. Peripheral blood smear: - Hypochromic, normocytic anemia. - See description. 08/20/2019 6:42 PM [facility] Comment Overall, the bone marrow specimen is normocellular for age with maturing trilineage hematopoiesis and no evidence of lymphoma, a high-grade myeloid neoplasm, or significant dyspoiesis. Correlation with clinical findings and relevant cytogenetic/molecular testing is required. KR/MM 08/20/2019 6:42 PM [facility] Peripheral Smear Description CBC Data: WBC - 9.4, Hgb - 7.4, MCV - 88.3, MCHC - 31.5, and Plt - 228. Manual Differential Count (100 cells): 89% neutrophils, 8% lymphocytes, and 3% monocytes. Leukocyte number: normal. Granulocyte morphology: normal. Lymphocyte morphology: normal. Erythrocyte number: decreased. Erythrocyte morphology: normocytic/hypochromi c. Anisopoikilocytosis: moderate. Polychromasia: moderate. Platelet number: normal. Platelet morphology: normal. 08/20/2019 6:42 PM [facility] Bone Marrow Aspirate Differential count (200 cells): 1% blasts, 61% maturing myeloid precursors, 25% erythroid progenitors, 1% monocytes, 1% eosinophils, 10% lymphocytes, and 1% plasma cells. Specimen quality: suboptimal. Spicules: absent. Trilineage Hematopoiesis: present. Myeloid:Erythroid ratio: 2.6:1. Myeloid Maturation: Normal. Erythroid Maturation: Normal. Megakaryocyte morphology: too few to adequately assess. 08/20/2019 6:42 PM [facility] Bone Marrow Core Biopsy and Clot Section Description Specimen quality: The decalcified bone marrow core biopsy is adequate for evaluation. Cellularity: Normocellular, 60-70%. Trilineage Hematopoiesis: present. Myeloid to Erythroid ratio: normal. Myeloid maturation and localization: normal. Erythroid maturation and localization: normal. Megakaryocyte number: normal. Megakaryocyte distribution: normal. Lymphoid aggregates: absent. Bone trabeculae: normal. Blood vessels: normal. Clot section marrow particles: present. Clot section morphology: similar to core biopsy. Clot section storage iron (by special stain): adequate. Control is appropriately reactive. An immunohistochemical stain for CD34 is performed on the core biopsy in the [facility] Department of Pathology, with appropriately reactive control, to assess for immaturity given the aspiculate aspirate smears and highlights no increase in blasts (less than 5% of the marrow cellularity). 08/20/2019 6:42 PM [facility] Flow Cytometry Summary Concurrent flow cytometry ([id number]) shows no evidence of non-Hodgkin lymphoma or high-grade myeloid neoplasm. 08/20/2019 6:42 PM [facility] Clinical History Anemia. 08/20/2019 6:42 PM [facility] Materials Received Received are 17 slides and 3 blocks labeled as [id number] along with the outside pathology report. The materials originate from [place] [id number]. All materials are returned to the referring institution, along with a copy of our final report. 08/20/2019 6:42 PM [facility] Disclaimer The performance characteristics of all immunohistochemical and indirect immunofluorescence stains (if any) cited in this report were determined by the Histopathology Laboratory of [facility]. Some of these tests were developed by our own laboratory and have not been cleared or approved by the US Food and Drug Administration. The FDA does not require this test to go through premarket FDA review. These tests are used for clinical purposes. They should not be regarded as investigational or for research. This laboratory is certified under the Clinical Laboratory Improvement Amendments (CLIA) as qualified to perform high complexity clinical laboratory testing. This case has been personally reviewed and interpreted by the attending (teaching) pathologist. 08/20/2019 6:42 PM [facility] Embedded Images 08/20/2019 6:42 PM [facility] Pathology/Cytology SPECIMEN FROM BONE MARROW OBTAINED BY ASPIRATION / Unknown 08/20/2019 8:21 AM MIXING ROLL OPERATOR 08/20/2019 8:22 AM MIXING ROLL OPERATOR Miscellaneous samples (specimen) BONE MARROW CLOT SPECIMEN / Unknown 08/20/2019 8:21 AM MIXING ROLL OPERATOR 08/20/2019 8:22 AM MIXING ROLL OPERATOR Miscellaneous samples (specimen) PERIPHERAL BLOOD / Unknown 08/20/2019 8:21 AM MIXING ROLL OPERATOR 08/20/2019 8:22 AM MIXING ROLL OPERATOR Miscellaneous samples (specimen) SPECIMEN FROM BONE MARROW OBTAINED BY ASPIRATION / Unknown 08/20/2019 8:21 AM MIXING ROLL OPERATOR 08/20/2019 8:22 AM MIXING ROLL OPERATOR Tenzin Berry MD LAB - PATHOLOGY/CYTO LOGY ORDERABLES [facility] [address] [place] [address], [facility] [phone] * FLOW CYTOMETRY BONE MARROW (08/18/2019 11:00 AM MIXING ROLL OPERATOR) Case Report Flow Cytometry Case: [id number] Authorizing Provider: Tenzin Berry MD Collected: 08/18/2019 11:00 AM Ordering Location: [facility] Lab Received: 08/18/2019 03:49 PM Pathologist: Glenys Duffy MD Specimen: Bone Marrow 08/19/2019 11:09 AM [facility] Final Diagnosis Bone marrow, flow cytometric immunophenotypic analysis: - No evidence of non-Hodgkin lymphoma or high-grade myeloid neoplasm. - See interpretation. 08/19/2019 11:09 AM [facility] Flow Cytometry Interpretation The bone marrow specimen has a viability of 100%. The lymphocyte, dim CD45, monocyte, and granulocyte londono are normal in relative proportion. Within the lymphocyte gate, there is no monotypic B-cell population identified (kappa: lambda ratio = 1.8:1). There is no aberrant co-expression of CD5 or CD10 on the B-cells. There is no expanded T-cell population seen. By CD34, 0.26% of all events analyzed are blasts. A bone marrow aspirate smear prepared from the flow cytometry specimen is reviewed for quality audit representative purposes. The bone marrow aspirate specimen shows no evidence of involvement by non-Hodgkin lymphoma or a high-grade myeloid neoplasm. Correlation with clinical findings, concurrent bone marrow core biopsy and relevant cytogenetic/molecu lar studies is required. 08/19/2019 11:09 AM [facility] Flow Cytometry Results Differential Result Comment Flow Cell Count /uL 31,200 Total Viability % 100.0 Lymphocytes % 13 Dim CD45 Region % 2 Monocytes % 8 Granulocytes % 76 08/19/2019 11:09 AM [facility] Reason for test 0 11:09 AM [facility] Client Specimen ID # [id number] 08/19/2019 11:09 AM [facility] Number of markers 10 were performed. A-2 Flow CD10 A-3 Flow CD13 A-5 Flow CD20 A-1 Flow CD5 A-4 Flow CD19 A-6 Flow CD33 A-7 Flow CD34 A-8 Flow CD45 A-[address] [place]+CD19+ A-10 Lambda+CD19+ 08/19/2019 11:09 AM [facility] Disclaimer Test performed at [facility], [address] [place] [address], [id number]. *The established laboratory minimum viability is 70%. Values below the minimum may result in the failure to find an abnormal population of cells. This test was developed and its performance characteristics determined by the Flow Cytometry Laboratory. It has not been cleared by the [place] Food and Drug Administration (FDA). The FDA has determined that such clearance or approval is not necessary. This test is used for clinical purposes. It should not be regarded as investigational or for research. This laboratory is regulated under the Clinical Laboratory Improvement Amendments of 1998 (CLIA) as a qualified to perform high complexity clinical testing. 08/19/2019 11:09 AM MIXING ROLL OPERATOR [facility] Embedded Images 0 11:09 AM MIXING ROLL OPERATOR [facility] Pathology/Cytolo gy BONE MARROW SPECIMEN / Unknown 08/18/2019 11:00 AM MIXING ROLL OPERATOR 08/18/2019 3:49 PM MIXING ROLL OPERATOR Tenzin Berry MD LAB - PATHOLOGY/CYTO LOGY ORDERABLES Performing Organization Address City/State/[facility] Co de Phone Number [facility] [address] [phone] Care Teams Computer Peripheral Equipment Operator Relationship Specialty Start Date End Date Ray Moreno MD [address] [place] [id number] PCP - General Family Medicine 05/28/23
--- OUTSIDE RECORDS SUMMARY | 2024-09-12 00:34 | XMS_ITS | Encounter Summary ---
Author Organization [facility] Address [address] [place] [address] Care Team Providers Care Research Contracts Supervisor Name Role Phone Ray Moreno MD Primary Care Provider [phone] Encounter Details Date Type Department Care Team (Late st Contact Info) Description 08/18/2019 Lab Requisition [facility] [address] [place] [address] Tenzin Berry MD [address] [id number] Social History Tobacco Use Types Packs/Day Years Used Date Smoking Tobacco: Never Assessed Sex and Gender Information Value Date Recorded Sex Assigned at Male 02/14/2024 3:53 PM CDT Gender Identity Male 02/14/2024 3:53 PM CDT Sexual Orientation Straight 02/14/2024 3: 53 PM CDT documented as of this encounter Plan of Treatment Not on file documented as of this encounter Procedures Procedure Name Priority Date/Time Associated Diagnosis Comments FLOW CYTOMETRY BONE MARROW Routine 08/18/2019 11:00 AM HAND I BLOCKER documented in this encounter Results * FLOW CYTOMETRY BONE MARROW (08/18/2019 11:00 AM HAND I BLOCKER) Case Report Flow Cytometry Case: [id number] Authorizing Provider: Tenzin Berry MD Collected: 08/18/2019 11:00 AM Ordering Location: [facility] Received: 08/18/2019 03:49 PM Pathologist: Glenys Duffy MD Specimen: Bone Marrow 08/19/2019 11:09 AM [facility] Final Diagnosis Bone marrow, flow cytometric immunophenotypic analysis: - No evidence of non-Hodgkin lymphoma or high-grade myeloid neoplasm. - See interpretation. 08/19/2019 11:09 AM [facility] Flow Cytometry Interpretation The bone [...] flow cytometry specimen is reviewed for quality eng purposes. The bone marrow aspirate specimen shows no evidence of involvement by non-Hodgkin lymphoma or a high-grade myeloid neoplasm. Correlation with clinical findings, concurrent bone marrow core biopsy and relevant cytogenetic/molecu lar studies is required. 08/19/2019 11:09 AM [facility] Flow Cytometry Results Differential Result Comment Flow Cell Count /uL 31,200 Total Viability % 100.0 Lymphocytes % 13 Dim CD45 Region % 2 Monocytes % 8 Granulocytes % 76 08/19/2019 11:09 AM [facility] Reason for test 0 11:09 AM [facility] Client Specimen ID # [id number] 08/19/2019 11:09 AM [facility] Number of markers 10 were performed. A-2 Flow CD10 A-3 Flow CD13 A-5 Flow CD20 A-1 Flow CD5 A-4 Flow CD19 A-6 Flow CD33 A-7 Flow CD34 A-8 Flow CD45 A-9 [place]+CD19+ A-10 Lambda+CD19+ 08/19/2019 11:09 AM [facility] Disclaimer Test performed at [facility], [address] [place] [address], [id number]. *The established laboratory minimum viability is 70%. [...] high complexity clinical testing. 08/19/2019 11:09 AM HAND I BLOCKER [facility] Embedded Images 0 11:09 AM HAND I BLOCKER [facility] Pathology/Cytolo gy BONE MARROW SPECIMEN / Unknown 08/18/2019 11:00 AM HAND I BLOCKER 08/18/2019 3:49 PM HAND I BLOCKER Tenzin Berry MD LAB - PATHOLOGY/CYTO LOGY ORDERABLES Performing Organization Address City/State/[facility] Co de Phone Number [facility] [address] [phone] documented in this encounter Visit Diagnoses Not on filedocumented in this encounter Care Teams Research Contracts Supervisor Relationship Specialty Start Date End Date Ray Moreno MD [address] [place] [phone] PCP - General Family Medicine 05/28/23 documented as of this encounter
--- OUTSIDE RECORDS SUMMARY | 2024-09-12 00:34 | XMS_ITS | Data Portability ---
Author Organization [place] [employer], Main Office Address [address] [place] [address] Care Team Providers Care Executive Talent Acquisition Consultant Name Role Phone RAY MORENO Primary Care Provider Assessment Encounter Date Assessment Date Assessment LastModified by Organization Details LastModified Time 06/17/2023 06/17/2023 38 yo M with - S/P HOSPITALIZATION - ACUTE PANCREATITIS - ELEVATED LFTs - WT LOSS PROGRAM - HTN - LUMBAR SPONDYOSIS, mild - CHRONIC LOW BACK PAIN - HYPOTHYROIDISM, resolved - HEPATIC STEATOSIS - MICROSCOPIC HEMATURIA, chronic - ANEMIA - VIT D DEFICIENCY - MORBID OBESITY III - FATIGUE, ? STACI - H/O SEPSIS (08/09) - H/O ACUTE RENAL FAILURE (08/09) - H/O AUTOIMMUNE ANEMIA - H/O A FIB - H/O DM II; Probably Secondary to Prednisone - H/O PERIPHERAL EDEMA, Probably from Prednisone - H/O RT LOWER LEG WOUND, Chronic - H/O KOLE HEMATURIA - H/O OSTEONECROSIS OF B/L FEMORAL NECK - H/O VENTRAL & SUPRAUMBILICAL HERNIA HbA1c: 7.1(11/03/19) - 5.4(05/11/20) - 5.8(09/10/21) - 5.5(12/18/22) Annual labs: 12/18/22. X-ray L-spine: 12/13/22. X-ray pelvis & Rt hip: 12/13/22. Annual labs: 09/10/21. CT A&P wo & US bladder: 08/31/21. UA, Urine cytology: 05/11/20. Annual labs, OLGA LIDIA, HIV: 11/03/19. CT A&P w: 09/17/19. CXR: 08/21/19. US renal: 08/15/19. CT A&P wo: 08/15/19. Wt: 363(12/31/22) - 366(02/25/23) - 346(06/17/23) D/w pt about his findings, recent labs & imagines and further plan of care. Recent hospital records reviewed with pt. Advised pt to f/u with his GI at [facility] for further management of his pancreatitis and elevated LFTs. Advised pt to f/u with his Hemat and Uro about hematuria and Anemia. Meds as directed. Cont heat pack as directed prn. Diet and exercise explained in detail. BP diary education given and call us if any concerns. Cont f/u with Pain clinic as per schedule. Cont f/u with Ortho as per schedule. Cont f/u with Surg as per schedule. Cont f/u with Uro as per schedule. Cont f/u with Hemat at [place] as per schedule. Cont f/u with Cardio at [place] as per schedule. Advised to refer to Endo; but pt declined. Advised to refer to Wt loss clinic; but pt declined. HM: Flu - 05/16/20. Tdap - 09/16/19. Gardasil - 05/16/20, 09/10/21, 12/18/22. F/u in 2 months. Annual labs in 12/11. [email or web address] Not available 06/17/2023 14:26:37 05/24/2024 05/24/2024 EMR issue, no connection. So pt was given paper Rx for his meds. [email or web address] Not available 05/24/2024 12:52:59 07/01/2024 07/01/2024 39 yo M with - WELL ADULT VISIT - [place], Lt face - HTN - ELEVATED LFTs - LUMBAR SPONDYOSIS, mild - CHRONIC LOW BACK PAIN - HEPATIC STEATOSIS - MICROSCOPIC HEMATURIA, chronic - ANEMIA - VIT D DEFICIENCY - MORBID OBESITY III - FATIGUE, ? STACI - H/O SEPSIS (08/09) - H/O ACUTE RENAL FAILURE (08/09) - H/O AUTOIMMUNE ANEMIA - H/O A FIB - H/O DM II; Probably Secondary to Prednisone - H/O PERIPHERAL EDEMA, Probably from Prednisone - H/O RT LOWER LEG WOUND, Chronic - H/O KOLE HEMATURIA - H/O OSTEONECROSIS OF B/L FEMORAL NECK - H/O VENTRAL & SUPRAUMBILICAL HERNIA - H/O HYPOTHYROIDISM HbA1c: 7.1(11/03/19) - 5.4(05/11/20) - 5.8(09/10/21) - 5.5(12/18/22) Annual labs: 12/18/22. X-ray L-spine: 12/13/22. X-ray pelvis & Rt hip: 12/13/22. Annual labs: 09/10/21. CT A&P wo & US bladder: 08/31/21. UA, Urine cytology: 05/11/20. Annual labs, OLGA LIDIA, HIV: 11/03/19. CT A&P w: 09/17/19. CXR: 08/21/19. US renal: 08/15/19. CT A&P wo: 08/15/19. Wt: 363(12/31/22) - 366(02/25/23) - 346(06/17/23) [Pt stopped] D/w pt about his findings, recent labs & imagines and further plan of care. Will do routine labs. Will refer pt to Neuro. Advised pt to f/u with his eye doctor soon. Meds as directed. Cont heat pack as directed prn. Diet and exercise explained in detail. BP diary education given and call us if any concerns. F/u with Neuro as per schedule. F/u with Ophtho as per schedule. Cont f/u with Pain clinic as per schedule. Cont f/u with Ortho as per schedule. Cont f/u with Surg as per schedule. Cont f/u with Uro as per schedule. Cont f/u with Hemat at [place] as per schedule. Cont f/u with Cardio at [place] as per schedule. Advised to refer to Endo; but pt declined. Advised to refer to Wt loss clinic; but pt declined. Advised to refer for sleep study; but pt declined. HM: Flu - 07/01/24. Tdap - 09/16/19. Gardasil - 05/16/20, 09/10/21, 12/18/22. F/u in 2-3 weeks. Annual labs in 07/14. [email or web address] Not available 07/01/2024 15:12:02 09/06/2024 09/06/2024 The patient gave verbal consent using TeleHealth services and the consent is documented in the medical record prior to using the service. The patient has been informed of what a TeleMedicine visit is. Patient is located at home. Provider is located at office. Names and roles of persons in addition to the patient and provider participating in telemedicine services include staff. The patient had a 11 minute TeleMedicine consultation via [employer] to discuss the following: D/w pt about his findings and further plan of care. All questions answered for the pt. Meds as directed. OTC symptomatic Rx and good liquid intake explained in detail. Proper self-isolation and hand hygiene explained in detail. Advised pt to get checked in ED if any alarming symptoms/concerns. Pt verbalized understanding it. F/u as advised. [email or web address] Not available 09/06/2024 09:52:53 Plan of Treatment Reminders Order Date Submit Date Provider Last Modified By Organization Details Last Modified Time Details Appointments None recorded. Lab CMP, serum or plasma [address] (Lab), [address] [place], [address], 5 14:23:54 CBC w/ auto diff [address] (Lab), [address] [place], [address], 5 14:23:54 lipid panel, blood [address] (Lab), [address] [place], [address], 5 14:23:54 TSH, serum, reflex free T4 [address] (Lab), [address] [place], [address], 5 14:23:54 PSA, serum or plasma [address] (Lab), [address] [place], [address], 5 14:23:54 urinalysis complete, reflex culture 2023 [email or web address] 4 [facility] (Lab), [address] [place], [address], 5 14:23:54 testosteron e, free + total, serum 2023 024 [email or web address] 4 [facility] (Lab), [address] [place], [address], 5 14:23:55 cortisol, am, serum 2023 [email or web address] [place] [address] (Lab), [address] [place], [address], 5 14:23:55 cobalamin and folate panel, serum 2023 [email or web address] 4 [facility] (Lab), [address] [place], [address], 5 14:23:55 vitamin D, 25-hydroxy, total, serum 2023 [email or web address] [place] [address] (Lab), [address] [place], [address], 5 14:23:55 HbA1c (hemoglobin A1c), blood 2023 024 [email or web address] 4 [facility] (Lab), [address] [place], [address], 5 14:23:55 Referral neurologist referral - Please call patient to schedule an appointment . Thank you. 2023 [email or web address] Bernice Echeverria MD, 3 [facility], [address], [address], 5 08:45:13 Procedures None recorded. Surgeries None recorded. Imaging None recorded. Medication Orders Paxlovid 300 mg (150 mg x 2)-100 mg tablets in a dose pack 2024 [facility][id number], [address] [facility], [place], [place], [id number], 5 09:47:27 dexamethaso ne 6 mg tablet 2024 [facility] #92679, [address] [facility], [place], [place], [id number], 5 09:47:30 albuterol sulfate HFA 90 mcg/actuati on aerosol inhaler 2024 [facility] #62215, [address] [facility], [place], [place], [id number], 5 09:47:31 promethazin e-DM 6.25 mg-15 mg/5 mL oral syrup 2024 025 [facility] #96963, [address] [facility], [place], [place], [id number], 5 09:47:32 oseltamivir 75 mg capsule 2024 025 [email or web address] [facility] #48540, [address] [facility] [place], [place], [place], [id number], 5 09:43:14 benzonatate 200 mg capsule 2024 025 [facility] #97370, [address] [facility] [place], [place], [place], [id number], 5 17:42:00 promethazin e-DM 6.25 mg-15 mg/5 mL oral syrup 2024 025 [facility] #83416, [address] [facility] [place], [place], [place], [id number], 5 17:43:22 losartan 25 mg tablet 2023 024 [facility] #24109, [address] [facility] [place], [place], [place], [id number], 4 14:57:38 Solu-Medrol (PF) 125 mg/2 mL solution for injection 2023 024 [email or web address] Not available 14:47:33 lisinopril 2.5 mg tablet 2022 023 [facility] #84231, [address] [facility] [place], [place], [place], [id number], 3 14:16:29 phentermine 30 mg capsule 2022 023 [email or web address] [facility] #37070, [address] [facility], [place], [place], [id number], 4 14:47:42 Patient TargetsNo targets recorded. Patient Instructions Encounter Date Encounter Id Patient Instructions Last Modified By Organization Details Last Modified Time 06/17/2023 [id number] high blood pressure: care instructions Not available 06/17/2023 14:16:16 dash diet: care instructions [email or web address] Not available 06/17/2023 14:16:16 low sodium diet (2,000 milligram): care instructions Not available 06/17/2023 14:16:16 learning about obesity [email or web address] Not available 06/17/2023 14:16:16 starting a weigh t loss plan: care instructions [email or web address] Not available 06/17/2023 14:16:16 body mass index: care instructions [email or web address] Not available 06/17/2023 14:16:16 05/24/2024 [id number] starting a weigh t loss plan: care instructions [email or web address] Not available 05/24/2024 12:53:29 07/01/2024 [id number] high blood pressure: care instructions Not available 07/01/2024 14:57:31 dash diet: care instructions [email or web address] Not available 07/01/2024 14:57:31 learning about obesity [email or web address] Not available 07/01/2024 14:57:32 starting a weigh t loss plan: care instructions [email or web address] Not available 07/01/2024 14:57:32 body mass index: care instructions Not available 07/01/2024 14:57:32 09/06/2024 [id number] Due to the COVID-19 (Novel Coronavirus) pandemic, it is within this context (and with the understanding that this method of patient encounter is in the patient s best interest as well as the health and safety of other patients and the public) that telehealth is being provided for this patient encounter rather than a [id number] visit. This patient encounter is appropriate at this time. This patient has been advised of the potential risks and limitations of this mode of treatment (including, but not limited to, the absence of in-person examination) and has agreed to be treated in a remote fashion despite these risks. Any and all of the patient s/patient s family s questions on this issue have been answered, and I have made no promises or guarantees to the patient. The patient has also been advised to contact this office for worsening conditions or problems, and seek emergency medical treatment and/or call 911 if the patient deems either necessary. HPI and/or vitals, if listed, were provided by the patient. [email or web address] Not available 09/06/2024 09:39:27 Reason for Referral Neurologist Referral for [place] of left facial muscle Please call patient to schedule an appointment. Thank you. Referring Physician: Ray Moreno, Family Medicine, Encounter Date: 07/01/2024 Results Created Date Observation Date Name Description Value Unit Range Abnormal Flag Note LastModifiedBy Organization Detail LastModifiedTime 05/25/20 23 05/25/2023 MR, kimber ngiop ancre atogr am, w/wo contr ast No observ ation record ed. [email or web address] [facility] [address], [place], [address], 06/17/2023 14:13:30 Result Notes None recorded. Problems Name Problem SNOMED Code Status Onset Date Resolution Date Notes Provider Name and Address Organization Details Recorded Time Pain in right sacroiliac joint 2344606625208 9107 Active 2021 Not Available [employer] 3 07:29:40 Active or passive immunizati on Active 2021 Not Available [employer] 3 07:29:40 History of sepsis 9214294748434 00 Active 2019 Not Available [employer] 3 07:29:40 Acute kidney injury 29469796 Active 2019 Not Available [employer] 3 07:29:40 History of diabetes mellitus 708765179 Active 2019 Not Available [employer] 3 07:29:40 Increased frequency of urination 425698897 Active 2021 Not Available [employer] 3 07:29:40 Persistent insomnia 095498139 Active 2019 Not Available [employer] 3 07:29:40 Steatosis of liver 324075743 Active 2019 Not Available [employer] 3 07:29:40 Microscopi c hematuria 175384963 Active 2019 Not Available [employer] 3 07:29:41 Kole hematuria 423353236 Active 2021 Not Available [employer] 3 07:29:41 Idiopathic aseptic necrosis of bone 885910370 Active 2021 Not Available [employer] 3 07:29:41 Morbid obesity 765028506 Active 2019 Not Available [employer] 3 07:29:41 Adult health examinatio n Active 2021 Not Available [employer] 3 07:29:41 Anemia 716721070 Active 2019 Not Available [employer] 3 07:29:41 Peripheral edema 429536112 Active 2019 Not Available [employer] 3 07:29:41 Lower urinary tract symptoms due to benign prostatic hypertroph y 0529653283911 1 Active 2021 Not Available [employer] 3 07:29:41 Disorder of prostate 24854504 Active 2021 Not Available [employer] 3 07:29:42 History of atrial fibrillati on 741991126 Active 2019 Not Available [employer] 3 07:29:42 Type 2 diabetes mellitus without complicati on 220179480 Active 2019 Not Available [employer] 3 07:29:42 Bronchitis 31310697 Active 2021 Not Available [employer] 3 07:29:42 Blood in urine 17643921 Active 2021 Not Available [employer] 3 07:29:42 Vitamin D deficiency 24134685 Active 2019 Not Available [employer] 3 07:29:42 Umbilical hernia 778758519 Active 2019 Not Available [employer] 3 07:29:42 Hypothyroi dism 22062690 Active 2021 Not Available [employer] 3 07:29:43 Autoimmune hemolytic anemia 549085248 Active 2019 Not Available [employer] 3 07:29:43 Acute urinary tract infection 616516743 Active 2021 Not Available [employer] 3 07:29:43 Uncontroll ed type 2 diabetes mellitus 347345575 Active 2019 Not Available [employer] 3 07:29:43 Cellulitis of lower limb 253463339 Active 2019 Not Available [employer] 3 07:29:43 Cough 07916630 Active 2021 Not Available [employer] 3 07:29:43 Swelling of bilateral lower limbs 262572338 Active 2021 Not Available [employer] 3 07:29:44 Urethral stricture 00151384 Active 2021 Not Available [employer] 3 07:29:44 Candidiasi s of mouth 65106241 Active 2019 Not Available [facility] 3 07:29:44 Ex-smoker 7939139 Active 2019 Not Available [facility] 3 07:29:44 Nasal congestion 91131340 Active 2022 Ray Moreno MD [address], [address], [place], [address] , [employer] [facility] 3 16:31:40 Seasonal allergic rhinitis 947493563 Active 2022 Ray Moreno MD [address], [address], [place], [address] , [employer] [facility] 3 17:38:01 Lumbar spondylosi s 549995341 Active 2022 Ray Moreno MD [address], [address], [place], [address] , [employer] [facility] 3 10:23:15 Sleep apnea 20941596 Active 2022 Ray Moreno MD [address], [address], [place], [address] , [employer] [facility] 3 10:26:16 Hypertensi ve disorder 26123674 Active 2022 Ray Moreno MD [address], [address], [place], [address] , [employer] [facility] 3 10:30:36 Pancreatit is 47633079 Active 2022 Ray Moreno MD [address], [address], [place], [address] , [employer] [facility] 3 14:14:30 Liver enzymes level above reference range 226053157 Active 2022 Ray Moreno MD [address], [address], [place], [address] , [employer] [facility] 3 14:26:53 [place] palsy of left side of face 5335067837119 9103 Active 2023 Ray Moreno MD [address], [address], [place], [address] , [employer] [facility] [employer] 4 12:52:16 Weakness of left facial muscle 417696531 Active 2023 Ray Moreno MD [address], [address], [place], [address] , [employer] 4 12:54:06 Fatigue 79599841 Active 2023 Ray Moreno MD [address], [address], [place], [address] , [employer] 4 14:59:09 COVID-19 104657430 Active 2024 Ray Moreno MD [address], [address] [facility], [place], [address] , [employer] 5 09:41:43 Fever with chills 427499585 Active 2024 Ray Moreno MD [address], [address], [place], [address] , [employer] 5 09:42:06 Notes:Ray Moreno MD [facility] home sleep study 01/02/23 AHI = 41, supine AHI = 53 Medical History: Rhinitis Obesity with severe OSAHS, AHI = 41, 01/01/23 Hypothyroidism Hypertension T2DM Atrial fibrillation Supraumbilical venral midline hernia Hepatic steatosis Hepatosplenomegaly Autoimmune normocytic hemolytic anemia Urethral stricture BPH with LUTS Vit D deficiency Lumbar spondylosis Bilateral femoral head avascular necrosis Procedure History: Cystoscopy 2021 Problem Notes None recorded. Procedures Surgical History Date Name Laterality Status Provider Name and Address Organization Details Recorded Time 2 Hernia Surgery completed Not Available [employer] 09/18 07:26:20 Vasectomy completed Not Available [employer] 0 09/18/2022 07:26:20 Imaging Results Imaging Date Name Status LastModified by [facility] Details LastModified Time 05/25/2023 MR, cholangiopanc reatogram, w/wo contrast completed [email or web address] [facility] [address], [place], [address], 06/17/2023 14:13:30 Procedure Notes None recorded. Medical Equipment None Reported. Allergies Allergen ID Allergen Name Allergen Category Reaction Reaction Severity Criticality Documentation Date Start Date Code Code System Note Provider Name and Address Organization Details Recorded Time 23406 peanut allergeni c extract food,medi cation itching mild Not available 09/18/2022 62754 8 RxNorm Not Available [facility] 3 07:34:13 Medications Name Sig Start Date Stop Date Status Note LastModified by Organization Details LastModified Time cyclobenz aprine 10 mg tablet TAKE 1 TABLET BY MOUTH EVERY 12 HOURS NEEDED active Not Available Not Available No t Available promethaz ine-DM 6.25 mg-15 mg/5 mL oral syrup Take 10 mL every 8 hours by oral route as needed for 7 days. 2024 active Not Available Not Available Not Avai lable nystatin 100,000 unit/mL oral suspensio n Take 10 mL 4 times a day by oral route as directed for 10 days. active Swish and Spit, 3-4 times per day. Not Available Not Available Not Available prednison e 10 mg tablet Take 1 tablet every day by oral route as directed for 7 days. 11/25 completed Take 40mg on day 1,2; Than 20mg on day 3,4; Than 10mg on day 5,6,7. Take with food, do not take on empty stomach. Not Available Not Available Not Available albuterol sulfate 2.5 mg/3 mL (0.083 %) solution for nebulizat ion Inhale 3 mL every 6 hours by nebuliza tion route as needed for 10 days. active Not Available Not Available No t Available trazodone 50 mg tablet Take 1 tablet every day by oral route at bedtime for 30 days. active Not Available Not Available No t Available azithromy samina 250 mg tablet TAKE 2 TABLETS BY MOUTH FOR 1 DAY THEN TAKE 1 TABLET BY MOUTH EVERY DAY FOR 4 DAYS 12/18 completed Not Available Not Available Not Available ofloxacin 0.3 % eye drops 06/13 completed Not Available Not Available Not Available benzonata te 200 mg capsule TAKE 1 CAPSULE BY MOUTH EVERY 8 HOURS FOR 7 DAYS NEEDED active Not Available Not Available No t Available valacyclo vir 1 gram tablet active Not Available Not Available Not Available bupivacai ne HCl 0.5 % (5 mg/mL) injection solution Take 20 mg by injectio n route. 11/25 completed Not Available Not Available Not Available dexametha sone 6 mg tablet Take 0.5 tablets twice a day by oral route with meal(s) for 7 days. 2024 active Not Available Not Available Not Avai lable phentermi ne 15 mg capsule TAKE 1 CAPSULE BY MOUTH EVERY DAY IN THE MORNING 06/17 completed Not Available Not Available Not Available promethaz ine 6.25 mg-codein e 10 mg/5 mL syrup 09/09 completed Not Available Not Available Not Available tramadol 50 mg tablet Take 1 tablet every 8 hours by oral route as needed for 5 days. 11/25 completed Not Available Not Available Not Available phentermi ne 30 mg capsule Take 1 capsule every day by oral route in the morning for 30 days. 07/01 completed Not Available Not Available Not Available levothyro xine 25 mcg tablet Take 1 tablet every other day by oral route in the morning for 90 days. 12/31 completed Not Available Not Available Not Available ketorolac 0.5 % eye drops 06/13 completed Not Available Not Available Not Available oxycodone -acetamin ophen 5 mg-325 mg tablet TAKE 1 TABLET BY MOUTH EVERY 4 TO 6 HOURS NEEDED 11/25 completed Not Available Not Available Not Available Deep Sea Nasal 0.65 % spray aerosol 11/16 completed Not Available Not Available Not Available prednisol one acetate 1 % eye drops,cayla pension 06/13 completed Not Available Not Available Not Available Kenalog 10 mg/mL suspensio n for injection In office injectio n administ ered by the provider 11/25 completed [facility]: [id number] 11-07 Not Available Not Available Not Available hydrocodo ne 7.5 mg-acetam inophen 325 mg tablet 09/09 completed Not Available Not Available Not Available cephalexi n 500 mg capsule 09/24 completed Not Available Not Available Not Available trazodone 150 mg tablet Take 1 tablet every day by oral route at bedtime for 30 days. 10/05 completed Not Available Not Available Not Available oseltamiv ir 75 mg capsule Take 1 capsule twice a day by oral route as directed for 5 days. 09/06 completed Not Available Not Available Not Available losartan 25 mg tablet Take 1 tablet every day by oral route as directed for 90 days. active Not Available Not Available No t Available metoprolo l tartrate 50 mg tablet TK 1 T PO Q 12 H 05/02 completed Not Available Not Available Not Available folic acid 1 mg tablet 06/13 completed Not Available Not Available Not Available codeine 10 mg-guaife nesin 100 mg/5 mL oral liquid TAKE 10 ML BY MOUTH EVERY 6 TO 8 HOURS FOR 5 DAYS NEEDED 12/18 completed Not Available Not Available Not Available mupirocin 2 % topical ointment APPLY A SMALL AMOUNT TO THE AFFECTED AREA BY TOPICAL ROUTE 2 TIMES PER DAY active Not Available Not Available No t Available furosemid e 20 mg tablet TAKE 1 TABLET BY MOUTH EVERY DAY IN THE MORNING 07/01 completed Not Available Not Available Not Available ergocalci ferol (vitamin D2) 1,250 mcg (50,000 unit) capsule TAKE 1 CAPSULE BY MOUTH EVERY WEEK DIRECTED 07/01 completed Not Available Not Available Not Available methylpre dnisolone 4 mg tablets in a dose pack FOLLOW PACKAGE [employer]IO NS 07/01 completed Not Available Not Available Not Available albuterol sulfate HFA 90 mcg/actua tion aerosol inhaler INHALE 2 PUFFS BY MOUTH EVERY 6 HOURS FOR 10 DAYS NEEDED 2024 active Not Available Not Available Not Avai lable ondansetr on 4 mg disintegr ating tablet Take 1 tablet every 6-8 hours by oral route as needed for 5 days. active Not Available Not Available No t Available fluticaso ne propionat e 50 mcg/actua tion nasal spray,cayla pension SHAKE LIQUID AND USE 2 SPRAYS IN EACH NOSTRIL EVERY DAY DIRECTED active Not Available Not Available No t Available metformin ER 500 mg tablet,ex tended release 24 hr Take 1 tablet twice a day by oral route with meals for 30 days. active Not Available Not Available No t Available lisinopri l 2.5 mg tablet Take 1 tablet every day by oral route as directed for 90 days. 2022 active Not Available Not Available Not Avai lable naproxen 500 mg tablet TAKE 1 TABLET BY MOUTH EVERY 12 HOURS NEEDED 07/01 completed Not Available Not Available Not Available amoxicill in 875 mg-potass ium clavulana te 125 mg tablet TAKE 1 TABLET BY MOUTH EVERY 12 HOURS FOR 7 DAYS 12/18 completed Not Available Not Available Not Available cyclobenz aprine 5 mg tablet TAKE 1 TABLET BY MOUTH THREE TIMES DAILY NEEDED FOR MUSCLE SPASM 12/18 completed Not Available Not Available Not Available fenofibra te 160 mg tablet TK 1 T PO D 11/16 completed Not Available Not Available Not Available ferrous sulfate 324 mg (65 mg iron) tablet,de layed release Take 1 tablet every day by oral route after meals for 90 days. active Not Available Not Available No t Available Lantus Solostar U-100 Insulin 100 unit/mL (3 mL) subcutane ous pen INJECT 60 UNITS SUBCUTAN EOUSLY QD UTD 11/16 completed Not Available Not Available Not Available levocetir izine 5 mg tablet TAKE 1 TABLET BY MOUTH EVERY DAY DIRECTED active Not Available Not Available No t Available Humalog KwikPen (U-100) Insulin 100 unit/mL subcutane ous INJECT 10 UNITS SUBCUTAN EOUSLY TID 11/16 completed Not Available Not Available Not Available lidocaine 2 % mucosal jelly in applicato r Take by mucous route. 09/24 completed Not Available Not Available Not Available Solu-Medr ol (PF) 125 mg/2 mL solution for injection Take 125 mg by injectio n route for 1 day. 07/01 completed pt abhi well Not Available Not Available Not Available BD Ultra-Fin e Shiloh Pen Needle 32 gauge x 32 USE WITH INSULIN PENS QID UTD 05/16 completed Not Available Not Available Not Available Vios Aerosol Delivery System 06/13 completed Not Available Not Available Not Available Eliquis 5 mg tablet Take 1 tablet twice a day by oral route as directed for 30 days. active Take as directed by Cardio. Not Available Not Available Not Available OneTouch Ultra Blue Test Strip USE TO TEST BLOOD SUGAR 3 TO 4 TIMES D UTD 08/31 completed Not Available Not Available Not Available OneTouch Delica Plus Lancet 33 gauge USE TO TEST BLOOD SUGAR 3 TO 4 TIMES D UTD 08/31 completed Not Available Not Available Not Available COVID-19 test specimen collectio n TEST DIRECTED TODAY 09/24 completed Not Available Not Available Not Available Wegovy 0.25 mg/0.5 mL subcutane ous pen injector INJECT 0.25MG UNDER THE SKIN WEEKLY DIRECTED 07/01 completed Not Available Not Available Not Available Paxlovid 300 mg (150 mg x 2)-100 mg tablets in a dose pack Take 1 dose pk twice a day by oral route as directed for 5 days. 2024 active Not Available Not Available Not Avai lable Vitals Date Recorded Body height Body mass index (BMI) Body weight Body temperature Heart rate Oxygen saturation Oxygen saturation in Arterial blood by Pulse oximetry Systolic blood pressure Diastolic blood pressure Provider Name and Address Organization Details Last Updated DateTime 3 175.26 cm 51.2 kg/m2 411058. 12 g 96.7 [degF] 85 /min 98 % 98 % 128 mm[Hg] 80 mm[Hg] BURAK Gregg [facility] [employer] 3 14:10:31 Date Recorded Body height Body mass index (BMI) Body weight Body temperature Oxygen saturation Oxygen saturation in Arterial blood by Pulse oximetry Heart rate Systolic blood pressure Diastolic blood pressure Provider Name and Address Organization Details Last Updated DateTime 4 175.26 cm 57.8 kg/m2 594756. 72 g 98.2 [degF] 97 % 97 % 74 /min 128 mm[Hg] 80 mm[Hg] Tanya Moran RN [facility] [employer] 4 12:20:38 Date Recorded Body height Body mass index (BMI) Body weight Body temperature Oxygen saturation Oxygen saturation in Arterial blood by Pulse oximetry Heart rate Systolic blood pressure Diastolic blood pressure Provider Name and Address Organization Details Last Updated DateTime 4 175.26 cm 58.3 kg/m2 230405. 19 g 97.2 [degF] 98 % 98 % 83 /min 140 mm[Hg] 90 mm[Hg] Tanya Moran RN [facility] [employer] 4 14:40:08 Date Recorded Body height Body mass index (BMI) Body weight Body temperature Provider Name and Address Organization Details Last Updated DateTime 08/17/2024 175.26 cm 58.4 kg/m2 393831.79 g 98.4 [degF] Tanya Moran RN [facility] [employer] 08/17/2024 17:37:52 Date Recorded Oxygen saturation Oxygen saturation in Arterial blood by Pulse oximetry Heart rate Systolic blood pressure Diastolic blood pressure Provider Name and Address Organization Details Last Updated DateTime 96 % 96 % 98 /min 124 mm[Hg] 90 mm[Hg] Ray Moreno MD [address] [facility], [facility] [address], [place], [address], [employer] 5 17:44:55 Social History Question Answer Notes LastModified by Organizat ion Details LastModified Time Tobacco Smoking Status Former Smoker quit in 2017 Not Available [employer] 09/18/2022 07:25:57 Do You Have An Advance Directive? No [id number].[id number] Information not available 09/18/2022 What Is Your Level Of Alcohol Consumption? None MIGRATION.06751 40080 Information not available 09/18/2022 Do You Wear A Helmet When Biking? No MIGRATION.30781 10595 Information not available 09/18/2022 What Is Your Level Of Caffeine Consumption? Moderate MIGRATION.82186 10715 Information not available 09/18/2022 In The 14 Days Before Symptom Onset, Have You Had Close Contact With A Laboratory-confi rmed COVID-19 While That Case Was Ill? No MIGRATION.06747 73027 Information not available 09/18/2022 In The 14 Days Before Symptom Onset, Have You Had Close Contact With A Person Who Is Under Investigation For COVID-19 While That Person Was Ill? No MIGRATION.65396 15022 Information not available 09/18/2022 What Type Of Diet Are You Following? REGULAR MIGRATION.81033 05938 Information not available 09/18/2022 What Is The Highest Grade Or Level Of School You Have Completed Or The Highest Degree You Have Received? [id number] MIGRATION.45272 39429 Information not available 09/18/2022 Have There Been Any Changes To Your Family Or Social Situation? No MIGRATION.99236 11332 Information not available 09/18/2022 When Did You Quit Smoking? 1-5yearssincelastc igarette MIGRATION.82472 82298 Information not available 09/18/2022 Are There Any Guns Present In Your Home? No MIGRATION.86786 27301 Information not available 09/18/2022 Do You Use Insect Repellent Routinely? No MIGRATION.15038 58689 Information not available 09/18/2022 [facility] M[facility].04982 41007 Information not available 09/18/2022 Do You Have A Medical Power Of Industrial Hygiene Engineer? No MIGRATION.63186 86262 Information not available 09/18/2022 Have You Ever Been Counseled For Unhealthy Alcohol Use? No MIGRATION.11938 33229 Information not available 09/18/2022 Do You Have Any Pets? Yes MIGRATION.58144 86262 Information not available 09/18/2022 What Is Your Relationship Status? MIGRATION.42351 57284 Information not available 09/18/2022 Do You Use Your Seat Belt Or Car Seat Routinely? Yes MIGRATION.97162 88024 Information not available 09/18/2022 Do You Have Smoke And Carbon Monoxide Detectors In Your Home? Yes MIGRATION.42182 51965 Information not available 09/18/2022 Are You Passively Exposed To Smoke? No MIGRATION.75217 94931 Information not available 09/18/2022 Are There Any Smokers In Your House? No MIGRATION.70545 51570 Information not available 09/18/2022 Do You Participate In Social Media? No MIGRATION.75567 41844 Information not available 09/18/2022 Do You Use Sunscreen Routinely? Yes MIGRATION.02242 38710 Information not available 09/18/2022 Has Tobacco Cessation Counseling Been Provided? No MIGRATION.08787 89495 Information not available 09/18/2022 Have You Recently Traveled Abroad? No MIGRATION.30761 47378 Information not available 09/18/2022 Are You Currently In School? No MIGRATION.94461 75510 Information not available 09/18/2022 Do You Have Any Dietary Restrictions? No MIGRATION.06179 07435 Information not available 09/18/2022 Do You Or Have You Ever Used Any Other Forms Of Tobacco Or Nicotine? No MIGRATION.62177 92163 Information not available 09/18/2022 Sex: Male Functional Status Question Answer Note LastModified by Organizat ion Details LastModified Time What is your exercise level? Occasional [id number] Information not available 09/18/2022 Mental Status None recorded. Family History Relationship Description Onset Age of this Age Resolved Age Notes LastModified by Organization Details LastModified Time Sister Hypertensive disorder [id number] Not available 09/18/2022 07:26:21 Maternal Grandfather Malignant tumor of prostate MIGRATION.926 [id number] Not available 09/18/2022 07:26:21 Mother Malignant tumor of breast MIGRATION.229 [id number] Not available 09/18/2022 07:26:21 Medical History Condition Response CYSTITIS N BLINDNESS N RHEUMATIC FEVER N KIDNEY STONES N BLADDER PROBLEMS N Enlarged Prostate N MRSA N OTHER # 1 N POLIO N LUNG DISEASE/DISORDER N HISTORY OF DRUG ABUSE N COPD N RADIATION / CHEMOTHERAPY N Other # 2 N BLOOD DISEASES N SURGERY N EAR OR HEARING PROBLEMS N MUMPS N SHINGLES N FEMALE PROBLEMS / INFECTIONS N DEPRESSION (INCLUDING POST ) N BOWEL PROBLEMS N STROKE/TIA N THYROID DISEASE N ULCERS N BENIGN PROSTATIC HYPERPLASIA N MEASLES N CERVICALGIA N HYPOTENSION N TB SKIN TEST N MYOCARDIAL INFARCTION N OBESITY N PARAPELGIA N GERD/NAUSEA N ANEURYSM N Increased Urination N URINARY/BLADDER/KIDNEY PROBLEMS N CORONARY ARTERY DISEASE (CAD) N MENIERE'S DISEASE N ADDICTION CONCERNS N ENDOMETRIOSIS N USE OF BLOOD THINNERS N SKIN PROBLEMS N EMPHYSEMA N GASTROINTESTINAL DISORDER N MUSCLE,JOINT OR BONE PROBLEMS N GASTROINTESTINAL BLEEDING N BLOOD CLOTS N Difficulty Urinating N ASTHMA N CATARACTS Y ERECTILE DYSFUNCTION N GI PROBLEMS N CHF N Low Testosterone N NEUROPATHY N INFERTILITY N AIDS/HIV N FRACTURES N CHEMOTHERAPY / RADIATION N VISION/EYE PROBLEMS N LIVER DISEASE N MALE HYPOGONADISM N HYPERTENSION N TOURETTE'S N ANXIETY DISORDER N BLOOD TRANSFUSION N ANEMIA/BLOOD DISORDER Y CHRONIC EAR INFECTIONS N BRONCHITIS N TUBERCULOSIS N GLAUCOMA N FOOT PROBLEM N DIVERTICULITIS N CHICKENPOX N SLEEP APNEA N ALLERGIES/HAYFEVER N INFECTIOUS DISEASE N HEART ARRHYTHMIA N PROSTATE N INSOMNIA N HIGH CHOLESTEROL / HYPERLIPIDEMIA N EYE PROBLEMS N HYPERTHYROIDISM N UTI N EATING DISORDER N EDEMA N CHRONIC PAIN SYNDROME N HYPOTHYROIDISM N CONSTIPATION N CAROTID BLOCKAGE N BACK / NECK PROBLEMS N HAVE YOU BEEN HOSPITALIZED OR SEEN IN [facility] IN THE PAST YEAR ? Y ATHEROSCLEROSIS N BREAST PROBLEMS N DIALYSIS N ECZEMA N FIBROMYALGIA N OSTEOPOROSIS N ARTHRITIS N NO SIGNIFICANT PAST MEDICAL HISTORY N APPENDICITIS N DIABETES, TYPE N BAD TEETH N PARKINSON N HEARTBURN / REFLUX N ADD/ADHD N AUTISM SPECTRUM DISORDER (ASD) N HEPATITIS / LIVER DISEASE N PULMONARY DISEASE N GOUT N SLEEP DISORDER N ALZHEIMER'S DISEASE N PAIN N HERPES N DEMENTIA N SEIZURES/EPILEPSY N HEADACHES/MIGRAINES N VASCULAR DISEASE N PACEMAKER N HEART MURMUR N DIZZINESS N KIDNEY DISEASE N HEART DISEASE/HEART PROBLEMS N SCARLET FEVER N MULTIPLE SCLEROSIS N MENTAL DISORDER/ILLNESS N DEVELOPMENTAL OR BEHAVIORAL DISORDERS N CARDIAC ARRHYTHMIA N CANCER: SPECIFY N PNEUMONIA N ANESTHESIA COMPLICATIONS N Gall Stones N ATRIAL FIBRILLATION N PULMONARY EMBOLISM N AUTOIMMUNE DISEASE N Immunizations Vaccine Type Date Status Note Provider Nam e and Address Organization Details Recorded Time HPV9 09/10/2021 completed Not Available [facility] 09/18/2022 07:34:06 Influenza, split virus, quadrivalent, PF 05/16/2020 completed Not Available [facility] 07:34:07 HPV9 05/16/2020 completed Not Available [facility] 09/18/2022 07:34:07 Tdap 09/16/2019 completed Not Available [facility] 09/18/2022 07:34:07 HPV9 12/18/2022 completed Karon Arredondo RN null, [employer] 12/18/2022 12:40:48 Influenza, split virus, trivalent, PF 07/01/2024 completed DARRICK May, [employer] 07/02/2024 10:32:24 Past Encounters Encounter ID Performer Location Encounter Start Date Encounter Closed Date Diagnosis/Indication Diagnosis SNOMED-CT Code Diagnosis ICD10 Code Diagnosis Note [id number] [facility] [address] [place] [address] 05/30/2021 00:00:00 05/30/2021 09:39:10 [id number] [facility] Fernando [address] [place] [address] 08/29/2021 00:00:00 08/29/2021 16:10:30 [id number] [facility] U[facility] [address], [address] [place] [address] 08/31/2021 00:00:00 08/31/2021 16:45:09 [id number] [facility] [address] [place] [address] 09/10/2021 00:00:00 09/10/2021 10:47:39 [id number] [facility] [address], [address] [address] 09/14/2021 00:00:00 09/14/2021 16:30:56 [id number] [facility] [place] [address] [place] [address] 09/24/2021 00:00:00 09/24/2021 11:16:24 [id number] [facility] [address] [address] 09/24/2021 00:00:00 09/24/2021 17:16:31 [id number] [facility] General Surgery [address] [place] [address], [address] [address] 09/25/2021 00:00:00 09/25/2021 14:37:28 [id number] [facility] U[facility] [address], [address] [address] 10/03/2021 00:00:00 10/26/2021 16:02:45 [id number] [facility] Surgery [address] [place] [address], [address] [address] 11/15/2021 00:00:00 11/15/2021 12:45:39 [id number] [facility] [address] [address] 11/19/2021 00:00:00 11/19/2021 14:43:53 [id number] Ray Moreno MD [facility] [address] [address] 11/25/2022 17:20:45 11/25/2022 17:42:43 Bronchitis 36219517 J40 Cough 76235263 R05.9 Nasal congestion 4516365 0 R09.81 Morbid obesity 240308173 E66.01 Seasonal a llergic rhinitis 460382666 J30.2 [id number] Ray Moreno MD [address] [address] 12/18/2022 10:02:04 12/18/2022 10:51:34 Adult health examination 939945454 Z00.00 Anemia 145457595 D64.9 History of diabetes mellitus 308014271 Z86.39 Morbid obesity 859976939 E66.01 Vitamin D deficiency 347 89309 E55.9 Seen in [facility] 460466435 Z76.89 Lumbar spondylosis 09766 0009 M47.896 Sleep apnea 89459242 G47 .30 Active or passive immunization 381528302 Z23 Hypertensive disorder 38 364461 I10 [id number] Ray Moreno MD [address] [address] 12/31/2022 10:26:23 12/31/2022 11:05:55 Anemia 209382653 D64.9 History of diabetes mellitus 261483697 Z86.39 Morbid obesity 493771146 E66.01 Vitamin D deficiency 347 56321 E55.9 Lumbar spondylosis 92812 0009 M47.896 Sleep apnea 04420098 G47 .30 Hypertensive disorder 38 489611 I10 Pain in ri ght sacroiliac joint 7776619037 5332085 M53.3 [id number] Ray Moreno MD [address] [address] 02/25/2023 11:33:39 02/25/2023 12:01:11 History of diabetes mellitus 668254985 Z86.39 Morbid obesity 068818333 E66.01 Hypertensive disorder 38 144521 I10 [id number] Ray Moreno MD [address] [address] 06/17/2023 14:00:29 06/17/2023 14:30:04 Hypertensive disorder 49408282 I10 History of diabetes mellitus 921095181 Z86.39 Morbid obesity 487241532 E66.01 Hospital i npatient stay within past 30 days 5220534190 106 Z76.89 Pancreatitis 33863771 K8 5.90 Liver enzy mes level above reference range 136419178 R74.01 Ex-smoker 5997778 Z87.89 1 [id number] Ray Moreno MD [address] [address] 05/24/2024 12:11:51 05/24/2024 13:58:04 [place] palsy of left side of face 4134509859 9630638 G51.0 Morbid obesity 819639426 E66.01 Weakness o f left facial muscle 461116404 R29.680 [id number] Ray Moreno MD [address] [address] 07/01/2024 14:32:31 07/01/2024 15:12:40 Liver enzymes level above reference range 640605204 R74.01 Hypertensive disorder 38 858455 I10 History of diabetes mellitus 407097818 Z86.39 Morbid obesity 959123201 E66.01 Ex-smoker 1142423 Z87.89 1 Adult [facility] th examination 605236194 Z00.00 Vitamin D deficiency 347 61988 E55.9 Weakness o f left facial muscle 861910368 R29.810 Administra tion of influenza vaccine 74895418 Z23 Fatigue 83251636 R53.83 [id number] Ray Moreno MD [address] [address] 08/17/2024 17:26:50 08/17/2024 17:56:15 Exposure to Influenza A virus subtype H1N1 459454449 Z20.828 Nasal congestion 2002310 0 R09.81 Cough 33656759 R05.9 Fatigue 17949461 R53.83 [id number] Ray Moreno MD [address] [address] 09/06/2024 09:35:38 09/06/2024 10:06:34 COVID-19 361540697 U07.1 Cough 10003519 R05.9 Fever with chills 816480 006 R50.9 Fatigue 20084653 R53.83 Health Concerns Section Related Observation LastModified by Organization Detai ls LastModified Time None Recorded Concern Status LastModified by Organization Details LastModified Time None Recorded Advance Directives Directive N: Payers Encounter Date Sequence Insurance Name Policy Number Policy Leonard Covered Member ID Leonard Member ID Guarantor Name 06/17/2023 1 [place] [id number] Zheng Whiteside All [id number] 282 [employer] 05/24/2024 1 [place] [id number] Zheng Wh[employer] All [id number] Zheng Carrizales 07/01/2024 1 [place] [id number] Zheng Whiteside All [id number] 282 Zheng Wh[employer] All 08/17/2024 1 [place] [id number] Zheng Whites[employer] All [id number] 282 Zheng Whiteside All 09/06/2024 1 [place] [id number] Zheng Whiteside All [id number] 282 Zheng Whiteside All Notes Date Note Type Note Provider Name and Address Organization Details Recorded Time 06/17/2023 text/html Hospital fuv: Pt was taken to ED at [facility] due to passing out at his home after his recent trip from [facility] and than he was transferred to [facility] for further management. Pt did not get cholecystectomy yet and he will be f/u with GI at [facility] for it and other steps. Pt wants to cont with Phentermine for his wt concern. Doing ok on it. Denies any problem with meds. Pt is f/u with Pain clinic [place] and is getting PT with them. C/o lower back pain with tingling and numbness to his LEs for last 4-5 days. Pt denies any recent fall/trauma/injury. Pt went to ED last weekend for this and got x-rays and it came back good. So pt was advised to f/u with Pain clinic for injections. Denies any incontinence. Denies any workman's comp. Pt was admitted to [facility] from 09/17/19 to 09/21/19 due to New onset DM, new onset A fib, ? hemolytic anemia and dehydration.Pt was admitted to [facility] from 08/15/19 to 08/23/19 due to Sepsis, acute renal failure, anemia, Pneumonia, rhabdomyolysis & UTI. Pt was seen by Hemat at the hospital and he had bone marrow biopsy done and was also seen by Nephro. Ray Moreno MD [address], [facility] [address], [place], [address], [employer] [facility] [employer] 06/17/2023 14:28:05 05/24/2024 text/html ACV: C/o Lt sided facial carrillo's palsy for last 3-4 days and is requesting steroids for it. Pt had this happened about 6 yrs ago and it resolved with steroids. Denies any head trauma/weakness/swall owing problem. Pt wants to get steroid shot today. Last visit in 06/12. Ray Moreno MD [address], [facility] [address], [place], [address], [employer] [facility] [employer] 05/24/2024 12:54:50 07/01/2024 text/html Pt is here for h is annual exam. Doing overall better. Denies any new concern. Pt has not seen his Eye doctor yet. Still has Lt facial tingling, numbness and weakness over his Lt side of face ++.Pt had this happened about 6 yrs ago and it resolved with meds. Pt is not f/u with any of his specialist for last several months. Pt was admitted to [facility] due to pancreatitis and was seen by GI there and was told it was probably from Wegovy. So he has stopped taking it.Pt was admitted to [facility] from 08/15/19 to 08/23/19 due to Sepsis, acute renal failure, anemia, Pneumonia, rhabdomyolysis & UTI. Pt was seen by Hemat at the hospital and he had bone marrow biopsy done and was also seen by Nephro. Ray Moreno MD [address], [facility] [address], [place], [address], [employer] [facility] [employer] 07/01/2024 15:12:28 08/17/2024 text/html ACV: C/o cough, congestion, fatigue, chills that started today. Pt's son is sick for last 3 days and he got tested for Flu A and he is positive. So pt wants Rx for him. Pt is leaving for a trip to [place] in couple weeks. No other concern. Pt has not gone for his annual labs yet. Ray Moreno MD [address], [place], [address], [employer] 08/17/2024 17:48:52 09/06/2024 text/html Televisit:ACV. C/o cough, congestion, bodyaches, fever, chills for last 3-4 days. Pt went to [place] for 6 days and he came back 3 days ago. Pt did home covid test today and its positive. Denies any other symptoms. Ray Moreno MD [address], [place], [address], [employer] 09/06/2024 09:59:47
--- OUTSIDE RECORDS SUMMARY | 2024-09-12 00:34 | XMS_ITS | Encounter Summary ---
Author Organization [facility] Address [address] [place] [address] Care Team Providers Care Full Charge Bookkeeper Name Role Phone Ray Moreno MD Primary Care Provider Encounter Details Date Type Department Care Team (Late st Contact Info) Description 08/20/2019 Lab Requisition [facility] Pathology Lab [address] [place] [address] Tenzin Berry MD [address] [id number] Social History Tobacco Use Types Packs/Day Years [...] Procedure Name Priority Date/Time Associated Diagnosis Comments BONE MARROW BIOPSY (STL) Routine 08/20/2019 8:21 AM SAFETY COUNSELOR documented in this encounter Results * BONE MARROW BIOPSY (STL) (08/20/2019 8:21 AM SAFETY COUNSELOR) Case Report Bone Marrow Patholog y Report Case: [id number] Authorizing Provider: Tenzin Berry MD Collected: 08/20/2019 08:21 AM Ordering Location: [facility] Pathology Lab Received: 08/20/2019 08:22 AM Pathologist: Patricia Irwin MD Specimens: A) - Bone Marrow Core, AB20-5 B) - Bone Marrow Clot, AB20-5 C) - Blood Peripheral, AB20-5 D) - Bone Marrow Aspirate, AB20-5 08/20/2019 6:42 PM [facility] Final Diagnosis Bone marrow, aspirate, clot section, and core biopsy: - Normocellular marrow with maturing trilineage hematopoiesis. - No evidence of lymphoma or high-grade myeloid neoplasm. - See description. Peripheral blood smear: - Hypochromic, normocytic anemia. - See description. 08/20/2019 6:42 PM [facility] Comment Overall, the bone marrow specimen is normocellular for age with maturing trilineage hematopoiesis and no evidence of lymphoma, a high-grade myeloid neoplasm, or significant dyspoiesis. Correlation with clinical findings and relevant cytogenetic/molecular testing is required. KR/MM 08/20/2019 6:42 PM [facility] Peripheral Smear Description CBC Data: [...] normal. Platelet morphology: normal. 08/20/2019 6:42 PM [facility] Bone Marrow Aspirate Differential count (200 cells): 1% blasts, 61% maturing myeloid precursors, 25% erythroid progenitors, 1% monocytes, 1% eosinophils, 10% lymphocytes, and 1% plasma cells. Specimen quality: suboptimal. Spicules: absent. Trilineage Hematopoiesis: present. Myeloid:Erythroid ratio: 2.6:1. Myeloid Maturation: Normal. Erythroid Maturation: Normal. Megakaryocyte morphology: too few to adequately assess. 08/20/2019 6:42 PM [facility] Bone Marrow Core Biopsy and [...] performed on the core biopsy in the [facility] Department of Pathology, with appropriately reactive control, to assess for immaturity given the aspiculate aspirate smears and highlights no increase in blasts (less than 5% of the marrow cellularity). 08/20/2019 6:42 PM [facility] Flow Cytometry Summary Concurrent flow cytometry ([id number]) shows no evidence of non-Hodgkin lymphoma or high-grade myeloid neoplasm. 08/20/2019 6:42 PM [facility] Clinical History Anemia. 08/20/2019 6:42 PM [facility] Materials Received Received are 17 slides and 3 blocks labeled as [id number] along with the outside pathology report. The [place] [address]. All materials are returned to the referring institution, along with a copy of our final report. 08/20/2019 6:42 PM [facility] Disclaimer The performance characteristics of all immunohistochemical and indirect immunofluorescence stains (if any) cited in this report were determined by the Histopathology Laboratory of [facility]. Some of these tests were developed by [...] the attending (teaching) pathologist. 08/20/2019 6:42 PM [facility] Embedded Images 08/20/2019 6:42 PM [facility] Pathology/Cytology SPECIMEN FROM BONE MARROW OBTAINED BY ASPIRATION / Unknown 08/20/2019 8:21 AM SAFETY COUNSELOR 08/20/2019 8:22 AM SAFETY COUNSELOR Miscellaneous samples (specimen) BONE MARROW CLOT SPECIMEN / Unknown 08/20/2019 8:21 AM SAFETY COUNSELOR 08/20/2019 8:22 AM SAFETY COUNSELOR Miscellaneous samples (specimen) PERIPHERAL BLOOD / Unknown 08/20/2019 8:21 AM SAFETY COUNSELOR 08/20/2019 8:22 AM SAFETY COUNSELOR Miscellaneous samples (specimen) SPECIMEN FROM BONE MARROW OBTAINED BY ASPIRATION / Unknown 08/20/2019 8:21 AM SAFETY COUNSELOR 08/20/2019 8:22 AM SAFETY COUNSELOR Tenzin Berry MD LAB - PATHOLOGY/CYTO LOGY ORDERABLES Performing Organization Address City/State/[facility] Co de Phone Number [facility] LAB [address] [phone] documented in this encounter Visit Diagnoses Not on filedocumented in this encounter Care Teams Full Charge Bookkeeper Relationship Specialty Start Date End Date Ray Moreno MD [address] [place] [phone] PCP - General Family Medicine 05/28/23 documented as of this encounter
[2024-09-12 01:07] LABS: Glucose Point of Care > 500 mg/dl (65-105)
[2024-09-12 01:17] LABS: Add Urine Microscopic? YES; Appearance Urine Clear (Clear); Bacteria Urine None Seen /hpf; Bilirubin Urine Negative (Negative); Blood Urine 2+ (Negative); Color Urine Yellow (Yellow); Glucose Urine UA 3+ mg/dL (Negative); Ketones Urine Negative (Negative); Leukocyte Esterase Ur Negative LEU/UL (Negative); Nitrate Urine Negative (Negative); Non Pathogenic Casts 0-2; Protein Urine 1+ mg/dL (Negative); Specific Grav Ur 1.031 (1.001-1.035); Squamous Epithelial Cell Urine None Seen /hpf (Few); Urobilinogen Urine 0.2 mg/dL (<2.0); WBC Urine 0-5 /hpf (0-3)
--- OUTSIDE RECORDS SUMMARY | 2024-09-12 01:21 | XMS_ITS | Clinical Summary ---
Author Organization [facility] [employer] Address [address] [facility] [place] [address] Care Team Providers Care Burn Crew Member Name Role Phone aRy Moreno MD Primary Care Provider [phone] Source Comments [facility],non-owned Affiliates and Associated Physician Practices is amultiple site organization consisting of ambulatory clinics and hospital sitesin [place], [place], [place] and [place]. This disclosure is being madepursuant to the Care Everywhere program and may not contain all information available regarding this patient. Last updated 18.[facility] [employer] Allergies Active Allergy Reactions Criticality Noted Date [...] Active vitamin D, ergocalciferol, (Drisdol) 1.25 MG (48362 UT) capsule Take 1 (one) capsule by [...] and heating? Not hard at all 05/27/2023 [facility] - Occupational [...] place to sleep or slept in a senior living (including now)? No 05/27/2023 Sex and Gender Information Value Date Recorded Sex Assigned at Male 02/14/2024 3:53 PM CDT Gender Identity Male 02/14/2024 3:53 PM CDT Sexual Orientation Straight 02/14/2024 3: 53 PM CDT Last Filed Vital Signs Vital Sign Reading Time Taken Comments Blood Pressure 137/85 05/29/2023 11:19 AM TEXTILE STYLIST Pulse 67 05/29/2023 11:19 AM TEXTILE STYLIST Temperature 37 C (98.6 F) 05/29/2023 11:19 AM TEXTILE STYLIST Respiratory Rate 18 05/29/2023 3:32 AM TEXTILE STYLIST Oxygen Saturation 100% 05/29/2023 11: 19 AM TEXTILE STYLIST Inhaled Oxygen Concentration - - Weight 156.1 kg (344 lb 2.2 oz) 023 10:09 PM TEXTILE STYLIST Height 175.3 cm (5' 9.02 ) 05/27/2023 1 0:09 PM TEXTILE STYLIST Body Mass Index 50.8 05/27/2023 10:09 PM TEXTILE STYLIST Plan of Treatment Health Maintenance Due Date [...] 10:17 PM 05/29/2023 1:19 PM Care Teams Burn Crew Member Relationship Specialty Start Date End Date Ray Moreno MD [address] [place] [address] PCP - General Family Medicine 05/28/23
--- OUTSIDE RECORDS SUMMARY | 2024-09-12 01:21 | XMS_ITS | Encounter Summary ---
Author Organization [facility] Address [address] [place] [address] Care Team Providers Care Spot Remover Name Role Phone Ray Moreno MD Primary Care Provider Encounter Details Date Type Department Care Team (Late st Contact Info) Description 08/18/2019 Lab Requisition [facility] Pathology Lab [address] [place] [address] Tenzin Berry MD [address] [id number] Social History Tobacco Use Types Packs/Day Years [...] CYTOMETRY BONE MARROW Routine 08/18/2019 11:00 AM DOPE WEIGH OPERATOR documented in this encounter Results * FLOW CYTOMETRY BONE MARROW (08/18/2019 11:00 AM DOPE WEIGH OPERATOR) Case Report Flow Cytometry Case: [id number] Authorizing Provider: Tenzin Berry MD Collected: 08/18/2019 11:00 AM Ordering Location: [facility] Pathology Lab Received: 08/18/2019 03:49 PM Pathologist: Glenys Duffy MD Specimen: Bone Marrow 08/19/2019 11:09 AM [facility] Final Diagnosis Bone marrow, flow cytometric immunophenotypic analysis: - No evidence of non-Hodgkin lymphoma or high-grade myeloid neoplasm. - See interpretation. 08/19/2019 11:09 AM [facility] Flow Cytometry Interpretation The bone [...] the flow cytometry specimen is reviewed for plant quality manager purposes. The bone marrow aspirate specimen shows no evidence of involvement by non-Hodgkin lymphoma or a high-grade myeloid neoplasm. Correlation with clinical findings, concurrent bone marrow core biopsy and relevant cytogenetic/molecu lar studies is required. 08/19/2019 11:09 AM [facility] Flow Cytometry Results Differential Result Comment Flow Cell Count /uL 31,200 Total Viability % 100.0 Lymphocytes % 13 Dim CD45 Region % 2 Monocytes % 8 Granulocytes % 76 08/19/2019 11:09 AM [facility] Reason for test 0 11:09 AM [facility] Client Specimen ID # [id number] 08/19/2019 11:09 AM [facility] Number of markers 10 were performed. A-2 Flow CD10 A-3 Flow CD13 A-5 Flow CD20 A-1 Flow CD5 A-4 Flow CD19 A-6 Flow CD33 A-7 Flow CD34 A-8 Flow CD45 A-9 [place]+CD19+ A-10 Lambda+CD19+ 08/19/2019 11:09 AM [facility] Disclaimer Test performed at [facility], [address] [place] [address], [address]. *The established laboratory minimum viability is 70%. [...] high complexity clinical testing. 08/19/2019 11:09 AM DOPE WEIGH OPERATOR [facility] PATH[facility] LAB Embedded Images 0 11:09 AM DOPE WEIGH OPERATOR [facility] LAB Pathology/Cytolo gy BONE MARROW SPECIMEN / Unknown 08/18/2019 11:00 AM DOPE WEIGH OPERATOR 08/18/2019 3:49 PM DOPE WEIGH OPERATOR Tenzin Berry MD LAB - PATHOLOGY/CYTO LOGY ORDERABLES Performing Organization Address City/State/[facility] Co de Phone Number [facility] LAB [address] [phone] documented in this encounter Visit Diagnoses Not on filedocumented in this encounter Care Teams Spot Remover Relationship Specialty Start Date End Date Ray Moreno MD [address] [place] [address] PCP - General Family Medicine 05/28/23 documented as of this encounter
--- OUTSIDE RECORDS SUMMARY | 2024-09-12 01:21 | XMS_ITS | Clinical Summary ---
Author Organization [facility] Address [address] [place] [id number] Care Team Providers Care Gasoline Locomotive Crane Operator Name Role Phone Unavailable Primary Care Provider Unavailabl e Social History Tobacco Use Types Packs/Day Years Used Date Smoking Tobacco: Never Assessed Sex and Gender Information Value Date Recorded Sex Assigned at Not on file Legal Sex Male 2:19 PM CLINIC MANAGER Gender Identity Not on file Sexual Orientation Not on file Plan of Treatment Upcoming Encounters Date Type Department Care Team (Late st Contact Info) Description 12/22/2024 10:00 AM CDT Office Visit [facility]ialty Care - [address], [address] [place] [address] Bernice Echeverria MD [address] [place] [address] Health Maintenance Due Date Last Done Comments [...] patient's age to complete this topic Insurance [facility]
--- OUTSIDE RECORDS SUMMARY | 2024-09-12 01:21 | XMS_ITS | Encounter Summary ---
Author Organization [facility] Address [address] [address] Care Team Providers Care Livestock Yard Supervisor Name Role Phone Ray Moreno MD Primary Care Provider Encounter Details Date Type Department Care Team (Late st Contact Info) Description 08/20/2019 Lab Requisition [facility] Pathology Lab [address] [place] [address] Tenzin Berry MD [address] [phone] Social History Tobacco Use Types Packs/Day Years [...] MARROW BIOPSY (STL) Routine 08/20/2019 8:21 AM ELECTRICAL CONTROLS ENGINEER documented in this encounter Results * BONE MARROW BIOPSY (STL) (08/20/2019 8:21 AM ELECTRICAL CONTROLS ENGINEER) Case Report Bone Marrow Patholog y Report Case: [id number] Authorizing Provider: Tenzin Berry MD Collected: 08/20/2019 08:21 AM Ordering Location: [facility] Pathology Lab Received: 08/20/2019 08:22 AM Pathologist: Patricia Irwin MD Specimens: A) - Bone Marrow Core, AB20-5 B) - Bone Marrow Clot, AB20-5 C) - Blood Peripheral, AB20-5 D) - Bone Marrow Aspirate, [id number] 08/20/2019 6:42 PM [facility] Final Diagnosis Bone marrow, aspirate, clot section, and core biopsy: - Normocellular marrow with maturing trilineage hematopoiesis. - No evidence of lymphoma or high-grade myeloid neoplasm. - See description. Peripheral blood smear: - Hypochromic, normocytic anemia. - See description. 08/20/2019 6:42 PM [facility] Comment Overall, the bone marrow specimen is normocellular for age with maturing trilineage hematopoiesis and no evidence of lymphoma, a high-grade myeloid neoplasm, or significant dyspoiesis. Correlation with clinical findings and relevant cytogenetic/molecular testing is required. KR/MM 08/20/2019 6:42 PM [facility] Peripheral Smear Description CBC [...] normal. Platelet morphology: normal. 08/20/2019 6:42 PM [facility] Bone Marrow Aspirate Differential count (200 cells): 1% blasts, 61% maturing myeloid precursors, 25% erythroid progenitors, 1% monocytes, 1% eosinophils, 10% lymphocytes, and 1% plasma cells. Specimen quality: suboptimal. Spicules: absent. Trilineage Hematopoiesis: present. Myeloid:Erythroid ratio: 2.6:1. Myeloid Maturation: Normal. Erythroid Maturation: Normal. Megakaryocyte morphology: too few to adequately assess. 08/20/2019 6:42 PM [facility] Bone Marrow Core Biopsy [...] performed on the core biopsy in the [facility] Department of Pathology, with appropriately reactive control, to assess for immaturity given the aspiculate aspirate smears and highlights no increase in blasts (less than 5% of the marrow cellularity). 08/20/2019 6:42 PM [facility] Flow Cytometry Summary Concurrent flow cytometry ([id number]) shows no evidence of non-Hodgkin lymphoma or high-grade myeloid neoplasm. 08/20/2019 6:42 PM [facility] Clinical History Anemia. 08/20/2019 6:42 PM [facility] Materials Received Received are 17 slides and 3 blocks labeled as [id number] along with the outside pathology report. [place] [address]. All materials are returned to the referring institution, along with a copy of our final report. 08/20/2019 6:42 PM [facility] Disclaimer The performance characteristics of all immunohistochemical and indirect immunofluorescence stains (if any) cited in this report were determined by the Histopathology Laboratory of [facility]. Some of these tests were developed by [...] the attending (teaching) pathologist. 08/20/2019 6:42 PM [facility] Embedded Images 08/20/2019 6:42 PM [facility] Pathology/Cytology SPECIMEN FROM BONE MARROW OBTAINED BY ASPIRATION / Unknown 08/20/2019 8:21 AM ELECTRICAL CONTROLS ENGINEER 08/20/2019 8:22 AM ELECTRICAL CONTROLS ENGINEER Miscellaneous samples (specimen) BONE MARROW CLOT SPECIMEN / Unknown 08/20/2019 8:21 AM ELECTRICAL CONTROLS ENGINEER 08/20/2019 8:22 AM ELECTRICAL CONTROLS ENGINEER Miscellaneous samples (specimen) PERIPHERAL BLOOD / Unknown 08/20/2019 8:21 AM ELECTRICAL CONTROLS ENGINEER 08/20/2019 8:22 AM ELECTRICAL CONTROLS ENGINEER Miscellaneous samples (specimen) SPECIMEN FROM BONE MARROW OBTAINED BY ASPIRATION / Unknown 08/20/2019 8:21 AM ELECTRICAL CONTROLS ENGINEER 08/20/2019 8:22 AM ELECTRICAL CONTROLS ENGINEER Tenzin Berry MD LAB - PATHOLOGY/CYTO LOGY ORDERABLES Performing Organization Address City/State/[facility] Co de Phone Number [facility] [address] [phone] documented in this encounter Visit Diagnoses Not on filedocumented in this encounter Care Teams Livestock Yard Supervisor Relationship Specialty Start Date End Date Ray Moreno MD [address] [place] [phone] PCP - General Family Medicine 05/28/23 documented as of this encounter
--- OUTSIDE RECORDS SUMMARY | 2024-09-12 01:21 | XMS_ITS | Clinical Summary ---
Author Organization [facility] Address [address] [place] [address] Care Team Providers Care Internet Database Specialist Name Role Phone Ray Moreno MD Primary Care Provider [phone] Allergies No known active allergies Medications PREDNISONE [...] on file Legal Sex Male 10:22 AM APPLICATION DEVELOPMENT PROJECT MANAGER Gender Identity Not on file Sexual [...] age to complete this topic Care Teams Internet Database Specialist Relationship Specialty Start Date End Date Ray Moreno MD PCP - General Student in an Organized Health Care Education/Training Program 08/30/19
--- OUTSIDE RECORDS SUMMARY | 2024-09-12 01:21 | XMS_ITS | Referral Summary ---
Author Organization [facility] [employer] Address [address] [place] [address] Care Team Providers Care Lieutenant Shift Supervisor Name Role Phone Ray Moreno MD Primary Care Provider [phone] Source Comments [facility],non-owned Affiliates and Associated Physician Practices is amultiple site organization consisting of ambulatory clinics and hospital sitesin [place], [place], [place] and [place]. This disclosure is being madepursuant to the Care Everywhere program and may not contain all information available regarding this patient. Last updated 18.[facility] [employer] Allergies Active Allergy Reactions Criticality Noted Date [...] Active vitamin D, ergocalciferol, (Drisdol) 1.25 MG (66990 UT) capsule Take 1 (one) capsule by [...] and heating? Not hard at all 05/27/2023 [facility] - Occupational [...] place to sleep or slept in a retirement (including now)? No 05/27/2023 Sex and Gender Information Value Date Recorded Sex Assigned at Male 02/14/2024 3:53 PM CDT Gender Identity Male 02/14/2024 3:53 PM CDT Sexual Orientation Straight 02/14/2024 3: 53 PM CDT Last Filed Vital Signs Vital Sign Reading Time Taken Comments Blood Pressure 137/85 05/29/2023 11:19 AM WAITANGI TRIBUNAL MEMBER Pulse 67 05/29/2023 11:19 AM WAITANGI TRIBUNAL MEMBER Temperature 37 C (98.6 F) 05/29/2023 11:19 AM WAITANGI TRIBUNAL MEMBER Respiratory Rate 18 05/29/2023 3:32 AM WAITANGI TRIBUNAL MEMBER Oxygen Saturation 100% 05/29/2023 11: 19 AM WAITANGI TRIBUNAL MEMBER Inhaled Oxygen Concentration - - Weight 156.1 kg (344 lb 2.2 oz) 023 10:09 PM WAITANGI TRIBUNAL MEMBER Height 175.3 cm (5' 9.02 ) 05/27/2023 1 0:09 PM WAITANGI TRIBUNAL MEMBER Body Mass Index 50.8 05/27/2023 10:09 PM WAITANGI TRIBUNAL MEMBER Functional Status Functional Status Response Date of [...] 10:17 PM 05/29/2023 1:19 PM Care Teams Lieutenant Shift Supervisor Relationship Specialty Start Date End Date Ray Moreno MD [address] [place] [phone] PCP - General Family Medicine 05/28/23
--- OUTSIDE RECORDS SUMMARY | 2024-09-12 01:21 | XMS_ITS | Patient Health Summary ---
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 This disclosure is being madepursuant to the Care Everywhere program and may not contain all information available regarding this patient. Last updated 18.[facility] Allergies * Peanut-Derived(Other) Medications * Be aware that medications may not be up to date on this document. Alwaysverify current medications with the patient. * traMADol (Ultram) 50 MG tablet Take 1 (one) tablet by mouth as needed for Pain * cyclobenzaprine (Flexeril) 10 MG tablet Take 1 (one) tablet by mouth 3 times daily * vitamin D, ergocalciferol, (Drisdol) 1.25 MG (03572 UT) capsule Take 1 (one) capsule by [...] and heating? Not hard at all 05/27/2023 [facility] - Occupational [...] place to sleep or slept in a fdc (including now)? No 05/27/2023 Sex and Gender Information Value Date Recorded Sex Assigned at Male 02/14/2024 3:53 PM CDT Gender Identity Male 02/14/2024 3:53 PM CDT Sexual Orientation Straight 02/14/2024 3: 53 PM CDT Last Filed Vital Signs Vital Sign Reading Time Taken Comments Blood Pressure 137/85 05/29/2023 11:19 AM CONSTRUCTION DRIVER Pulse 67 05/29/2023 11:19 AM CONSTRUCTION DRIVER Temperature 37 C (98.6 F) 05/29/2023 11:19 AM CONSTRUCTION DRIVER Respiratory Rate 18 05/29/2023 3:32 AM CONSTRUCTION DRIVER Oxygen Saturation 100% 05/29/2023 11: 19 AM CONSTRUCTION DRIVER Inhaled Oxygen Concentration - - Weight 156.1 kg (344 lb 2.2 oz) 023 10:09 PM CONSTRUCTION DRIVER Height 175.3 cm (5' 9.02 ) 05/27/2023 1 0:09 PM CONSTRUCTION DRIVER Body Mass Index 50.8 05/27/2023 10:09 PM CONSTRUCTION DRIVER Procedures * GLUCOSE - POINT OF CARE(Performed [...] - POINT OF CARE (05/29/2023 5:50 AM CONSTRUCTION DRIVER) Only the most recent of6 resultswithin the time period is included. Glucose WB/POC 96 70 - 115 mg/dL 05/29/2023 5:51 AM CONSTRUCTION DRIVER [facility] Specimen Type Cap Fingerstick 2022 5:51 AM CONSTRUCTION DRIVER [facility] Blood BLOOD SPECIMEN / Unknown 05/29/2023 5:50 AM CONSTRUCTION DRIVER 05/29/2023 5:51 AM CONSTRUCTION DRIVER Jelly Archibald MD LAB - POINT OF CARE ORDERABLES [address] [address], [facility] [phone] * CANCER ANTIGEN (CA) 19-9 (05/29/2023 4:48 AM CONSTRUCTION DRIVER) CA 19-9 15 <=35 U/mL 05/31/2023 9:21 AM CONSTRUCTION DRIVER [place] ([facility]) Comment: INTERPRETIVE INFORMATION: Cancer Antigen-GI (CA 19-9) [...] or absence of malignant disease. Performed By: [facility] [address] [place] [address] Career Technical Supervisor: Seb Salgado MD, PhD CLIA Number: [id number] Blood BLOOD SPECIMEN / Unknown Lab Venipuncture / Unknown 05/29/2023 4:48 AM CONSTRUCTION DRIVER 05/29/2023 5:06 AM CONSTRUCTION DRIVER Choco Vila MD LAB - CHEMISTRY KAY ABRAHAM [employer] [facility]) [address] [place] [address], [facility] * (ABNORMAL) CBC W/O DIFFERENTIAL (05/29/2023 4:48 AM CONSTRUCTION DRIVER) WBC 7.5 3.5 - 10.5 10 3/uL 05/29/2023 5:30 AM [facility] RBC 4.55 4.30 - 5.70 10 6/uL 05/29/2023 5:30 AM [facility] Hemoglobin 11.9(L) 12.0 - 17.6 g/dL 05/29/2023 5:30 AM [facility] Hematocrit 38.3 35.2 - 51.7 % 05/29/2023 5:30 AM [facility] MCV 84.2 80.7 - 98.3 fL 05/29/2023 5:30 AM [facility] MCH 26.2(L) 26.7 - 34.0 pg 05/29/2023 5:30 AM [facility] MCHC 31.1 30.8 - 35.9 g/dL 05/29/2023 5:30 AM [facility] RDW-SD 49.3 36.0 - 50.0 fL 05/29/2023 5:30 AM [facility] RDW-CV 16.2(H) 11.2 - 14.8 % 05/29/2023 5:30 AM [facility] Platelet Count 211 150 - 400 10 3/uL 05/29/2023 5:30 AM [facility] MPV 10.1 9.4 - 12.9 fL 05/29/2023 5:30 AM [facility] nRBC Absolute 0.00 0 10 3/uL 05/29/2023 5:30 AM [facility] nRBC Auto 0.0 0 /100 WBC 05/29/2023 5:30 AM [facility] Blood BLOOD SPECIMEN / Unknown Lab Venipuncture / Unknown 05/29/2023 4:48 AM CONSTRUCTION DRIVER 05/29/2023 5:11 AM CONSTRUCTION DRIVER Choco Vila MD LAB - HEMATOLOGY ORD ERABLES [facility] [address] [place] [address], [facility] [phone] * TRIGLYCERIDES BLOOD (05/29/2023 4:48 AM CONSTRUCTION DRIVER) Triglycerides 101 <150 mg/dL 05/29/2023 5:35 AM [facility] Comment: ATP III Classification of Triglycerides: <150 mg/dL: Normal 150 - 199 mg/dL: Borderline High 200 - 400 mg/dL: High >500 mg/dL: Very High Blood BLOOD SPECIMEN / Unknown Lab Venipuncture / Unknown 05/29/2023 4:48 AM CONSTRUCTION DRIVER 05/29/2023 5:11 AM CONSTRUCTION DRIVER Jelly Archibald MD LAB - CHEMISTRY KAY ABRAHAM [facility] Organization Address City/State/ZIP Co de Phone Number [facility] [address] [place] [address], [facility] [phone] * (ABNORMAL) COMPREHENSIVE METABOLIC PANEL (05/29/2023 4:48 AM CONSTRUCTION DRIVER) Only the most recent of2 resultswithin the time period is included. Pathologist [facility] BUN 10 7 - 26 mg/dL 05/29/2023 5:35 AM [facility] Creatinine 0.87 0.71 - 1.16 mg/dL 05/29/2023 5:35 AM [facility] Sodium 142 136 - 145 mmol/L 05/29/2023 5:35 AM [facility] Potassium 3.3(L) 3.5 - 4.5 mmol/L 05/29/2023 5:35 AM [facility] Chloride 107 98 - 107 mmol/L 05/29/2023 5:35 AM [facility] CO2 26 22 - 29 mmol/L 05/29/2023 5:35 AM [facility] Glucose 102 70 - 115 mg/dL 05/29/2023 5:35 AM [facility] Calcium 8.6 8.4 - 10.2 mg/dL 05/29/2023 5:35 AM [facility] Protein Total 6.0 6.0 - 8.3 g/dL 05/29/2023 5:35 AM [facility] Albumin 2.4(L) 3.4 - 5.0 g/dL 05/29/2023 5:35 AM [facility] Bilirubin Total 1.2 0.2 - 1.2 mg/dL 05/29/2023 5:35 AM [facility] Alkaline Phosphatase 178(H) 40 - 150 U/L 05/29/2023 5:35 AM [facility] ALT 103(H) 5 - 55 U/L 05/29/2023 5:35 AM [facility] AST 32 5 - 34 U/L 05/29/2023 5:35 AM [facility] Anion Gap 9 6 - 16 05/29/2023 5:35 AM [facility] BUN/Creatinine Ratio 11 7 - 23 05/29/2023 5:35 AM [facility] Osmolality Calculated 293 275 - 295 mOsm/kg 05/29/2023 5:35 AM [facility] Albumin/Globulin Ratio 0.7(L) 1.1 - 2.3 05/29/2023 5:35 AM [facility] eGFR by CKD-EPI >90 >=90 mL/min/1.7 3 m2 05/29/2023 5:35 AM [facility] Blood BLOOD SPECIMEN / Unknown Lab Venipuncture / Unknown 05/29/2023 4:48 AM CONSTRUCTION DRIVER 05/29/2023 5:11 AM CONSTRUCTION DRIVER Jelly Archibald MD LAB - CHEMISTRY ORDBarbara ABRAHAM [facility] [address] [place] [address], [facility] [phone] * (ABNORMAL) PHOSPHORUS BLOOD (05/29/2023 4:48 AM CONSTRUCTION DRIVER) Only the most recent of2 resultswithin the time period is included. Phosphorus 2.6(L) 2.8 - 5.1 mg/dL 05/29/2023 5:38 AM [facility] Blood BLOOD SPECIMEN / Unknown Lab Venipuncture / Unknown 05/29/2023 4:48 AM CONSTRUCTION DRIVER 05/29/2023 5:11 AM CONSTRUCTION DRIVER Jelly Archibald MD LAB - CHEMISTRY ORDBarbara ABRAHAM [address] [address], [facility] [phone] * MAGNESIUM BLOOD (05/29/2023 4:48 AM CONSTRUCTION DRIVER) Only the most recent of2 resultswithin the time period is included. Magnesium 2.0 1.6 - 2.6 mg/dL 05/29/2023 5:35 AM CONSTRUCTION DRIVER [facility] Blood BLOOD SPECIMEN / Unknown Lab Venipuncture / Unknown 05/29/2023 4:48 AM CONSTRUCTION DRIVER 05/29/2023 5:11 AM CONSTRUCTION DRIVER Choco Vila MD LAB - CHEMISTRY KAY ABRAHAM [address] [address], [facility] [phone] * US ABDOMEN LIMITED (05/28/2023 4:46 PM CONSTRUCTION DRIVER) Anatomical Region Laterality Modality Abdomen Ultrasound 05/29/2023 9:19 AM CONSTRUCTION DRIVER Impressions 05/29/2023 12:53 PM CONSTRUCTION DRIVER IMPRESSION: 1.Hepatic steatosis. No discrete hepatic lesion or intrahepatic biliary dilation. Patent hepatic vasculature. 2.Subtle gallbladder wall thickening is nonspecific, but may be related to hepatic steatosis. No evidence of cholelithiasis or acute cholecystitis.Mildly prominent common bile duct. 3.Borderline splenomegaly. Report dictated by Fredrick Moreno MD, (radiology administrator). > Dictated by Fredrick Moreno MD (Special Forces Specialist) 05/29/2023 9:19 AM IAngie MD have personally reviewed and interpreted this examination/study. > Interpreting Provider: Angie Bose MD on 05/29/2023 12:53 PM Narrative 05/29/2023 12:53 PM CONSTRUCTION DRIVER PROCEDURE: US ABDOMEN LIMITED, DATE/TIME OF EXAM: 05/28/2023 4:46 PM, LOCATION [facility] INDICATION: K83.1: Biliary obstruction ADDITIONAL CLINICAL INFORMATION: [...] DATE/TIME OF EXAM: 05/28/2023 4:46 PM, LOCATION [facility] INDICATION: K83.1: Biliary obstruction ADDITIONAL CLINICAL INFORMATION: [...] splenomegaly. Report dictated by Fredrick Moreno MD, (radiology administrator). > Dictated by Fredrick Moreno MD (Special Forces Specialist) 05/29/2023 9:19 AM Angie Lau MD have personally reviewed and interpreted this examination/study. > Interpreting Provider: Angie Bose MD on 05/29/2023 12:53 PM Jelly Archibald MD US ORDERABLES * IGG SUBCLASS 4 (05/28/2023 10:24 AM CONSTRUCTION DRIVER) IgG Subclass 4 38 1 - 123 mg/dL 05/30/2023 12:07 AM CONSTRUCTION DRIVER [facility] ([facility]) Comment: REFERENCE INTERVAL: Immunoglobulin G Subclass 4 Access complete set of age- and/or gender-specific reference intervals for this test in the [facility] ([employer]). Performed By: [facility] [address] [place] [address] Career Technical Supervisor: Seb Salgado MD, PhD CLIA Number: [id number] Blood BLOOD SPECIMEN / Unknown Lab Venipuncture / Unknown 05/28/2023 10:24 AM CONSTRUCTION DRIVER 05/28/2023 11:15 AM CONSTRUCTION DRIVER Choco Vila MD LAB - CHEMISTRY KAY ABRAHAM [facility] Organization Address City/State/ZIP Co de Phone Number [facility]) [address] [place] [address] * OLGA LIDIA BLOOD SCREEN W/REFLEX TITER (05/28/2023 10:24 AM CONSTRUCTION DRIVER) OLGA LIDIA IgG None Detected None Detected 05/29/2023 6:55 PM CONSTRUCTION DRIVER [facility] ([facility]) Comment: If suspicion of connective tissue disease is strong and OLGA LIDIA EIA is negative, consider testing for OLGA LIDIA by IFA ([id number]). INTERPRETIVE INFORMATION: Anti-Nuclear Antibodies (OLGA LIDIA), IgG by NELLIE Antinuclear Antibodies (OLGA LIDIA), IgG by NELLIE: OLGA LIDIA specimens are screened using enzyme-linked immunosorbent assay (NELLIE) methodology. All NELILE results reported as Detected are further tested by indirect fluorescent assay (IFA) using HEp-2 substrate with an IgG-specific conjugate. The OLGA LIDIA NELLIE screen is designed to detect antibodies against dsDNA, histones, SS-A (Ro), SS-B (La), Medley, Medley/MINERAL RESOURCES INSPECTOR, Scl-70, Roshni-1, centromeric proteins, other antigens extracted from the HEp-2 cell nucleus. OLGA LIDIA NELLIE assays have been reported to have lower sensitivities than OLGA LIDIA IFA for systemic autoimmune rheumatic diseases (SARD). Negative results do not necessarily rule out SARD. Performed By: [facility] [address] [place] [address] Career Technical Supervisor: Seb Salgado MD, PhD CLIA Number: [id number] Blood BLOOD SPECIMEN / Unknown Lab Venipuncture / Unknown 05/28/2023 10:24 AM CONSTRUCTION DRIVER 05/28/2023 11:15 AM CONSTRUCTION DRIVER Choco Vila MD LAB - CHEMISTRY ORDE JARAD Performing Organization Address City/[facility]/ZIP Co de Phone Number [address] * PT-INR [facility] (05/28/2023 8:22 AM CONSTRUCTION DRIVER) PT 13.8 12.1 - 14.8 Seconds 05/28/2023 9:04 AM [facility] INR 1.1 See Comment 05/28/2023 9:04 AM [facility] Comment:The suggested therap eutic range for standard coumadin (warfarin) therapy is an INR of 2.0-3.0. For high-risk patients (Mechanical Mitral Valve Prosthesis, etc.), the suggested prophylactic therapeutic range is an INR of 2.5-3.5. Blood BLOOD SPECIMEN / Unknown Lab Venipuncture / Unknown 05/28/2023 8:22 AM CONSTRUCTION DRIVER 05/28/2023 8:38 AM CONSTRUCTION DRIVER Choco Vila MD LAB - COAGULATION OR DERABLES Performing Organization Address City/[facility]/ZIP Co de Phone Number [facility] [address] [id number] [phone] * HEMOGLOBIN A1C (05/28/2023 4:32 AM CONSTRUCTION DRIVER) Hemoglobin A1c 5.2 <=5.6 % 05/28/2023 10:55 AM [facility] Estimated Average Glucose 103 mg/dL 05/28/2023 10:55 AM [facility] Comment: HbA1c Interpretation: Normal : < 5.7% Pre-diabetes: 5.7-6.4% Diabetes: Equal to or greater than 6.5% Test results diagnostic of diabetes should be repeated for confirmation. Treatment target values recommended by ADA and other clinical organizations should be used to evaluate metabolic control in patients. Reference: [place] [employer], Standards of Care in Diabetes -2020 In patients 70 years and older consider HbA1c target range of 7.0-7.5% (Reference: Isaias Mccormack et al. JAMDA. 2012) The Sebia assay for the measurement of HbA1c is a National Glycohemoglobin Standardization Program (NGSP) certified method. Blood BLOOD SPECIMEN / Unknown Lab Venipuncture / Unknown 05/28/2023 4:32 AM CONSTRUCTION DRIVER 05/28/2023 4:45 AM CONSTRUCTION DRIVER Choco Vila MD LAB - CHEMISTRY KAY ABRAHAM [address] [address], [facility] [phone] * LACTIC ACID BLOOD (05/27/2023 11:10 PM CONSTRUCTION DRIVER) Pathologist [facility] Lactic Acid-Stat 0.9 <=2.0 mmol/L 05/27/2023 11:37 PM [facility] Blood BLOOD SPECIMEN / Unknown Lab Venipuncture / Unknown 05/27/2023 11:10 PM CONSTRUCTION DRIVER 05/27/2023 11:17 PM CONSTRUCTION DRIVER Choco Vila MD LAB - CHEMISTRY KAY ABRAHAM [address] [address], [facility] [phone] * (ABNORMAL) CBC W AUTO DIFFERENTIAL (05/27/2023 11:06 PM CONSTRUCTION DRIVER) WBC 7.6 3.5 - 10.5 10 3/uL 05/27/2023 11:20 PM [facility] RBC 4.34 4.30 - 5.70 10 6/uL 05/27/2023 11:20 PM [facility] Hemoglobin 11.5(L) 12.0 - 17.6 g/dL 05/27/2023 11:20 PM [facility] Hematocrit 36.7 35.2 - 51.7 % 05/27/2023 11:20 PM [facility] MCV 84.6 80.7 - 98.3 fL 05/27/2023 11:20 PM [facility] MCH 26.5(L) 26.7 - 34.0 pg 05/27/2023 11:20 PM [facility] MCHC 31.3 30.8 - 35.9 g/dL 05/27/2023 11:20 PM [facility] RDW-SD 48.0 36.0 - 50.0 fL 05/27/2023 11:20 PM [facility] RDW-CV 15.5(H) 11.2 - 14.8 % 05/27/2023 11:20 PM [facility] Platelet Count 188 150 - 400 10 3/uL 05/27/2023 11:20 PM [facility] MPV 10.5 9.4 - 12.9 fL 05/27/2023 11:20 PM [facility] nRBC Absolute 0.00 0 10 3/uL 05/27/2023 11:20 PM [facility] nRBC Auto 0.0 0 /100 WBC 05/27/2023 11:20 PM [facility] Neutrophils % 75.4(H) 35.0 - 70.0 % 05/27/2023 11:20 PM [facility] Lymphocytes % 11.5(L) 20.0 - 43.0 % 05/27/2023 11:20 PM [facility] Monocytes % 8.6 5.0 - 13.0 % 05/27/2023 11:20 PM [facility] Eosinophils % 3.6 0.0 - 6.0 % 05/27/2023 11:20 PM [facility] Basophil % 0.1 0.0 - 2.0 % 05/27/2023 11:20 PM [facility] Neutrophils Absolute 5.70 1.60 - 7.00 10 3/uL 05/27/2023 11:20 PM [facility] Lymphocyte Absolute 0.87(L) 1.10 - 3.90 10 3/uL 05/27/2023 11:20 PM [facility] Monocytes Absolute 0.65 0.26 - 1.07 10 3/uL 05/27/2023 11:20 PM [facility] Eosinophils Absolute 0.27 0.00 - 0.47 10 3/uL 05/27/2023 11:20 PM [facility] Basophils Absolute 0.01 0.00 - 0.08 10 3/uL 05/27/2023 11:20 PM [facility] Immature Granulocytes % 0.8 0.0 - 1.0 % 05/27/2023 11:20 PM [facility] Immature Granulocytes Absolute 0.06 05/27/2023 11:20 PM [facility] Blood BLOOD SPECIMEN / Unknown Venipuncture / Unknown 05/27/2023 11:06 PM CONSTRUCTION DRIVER 05/27/2023 11:10 PM CONSTRUCTION DRIVER Choco Vila MD LAB - HEMATOLOGY ORD ERABLES [facility] [address] [place] [address], [facility] [phone] * BONE MARROW BIOPSY (STL) (08/20/2019 8:21 AM [facility]) Case Report Bone Marrow Patholog y Report Case: [id number] Authorizing Provider: Tenzin Berry MD Collected: 08/20/2019 08:21 AM Ordering Location: [facility] Received: 08/20/2019 08:22 AM Pathologist: Patricia Irwin MD Specimens: A) - Bone Marrow Core, AB20-5 B) - Bone Marrow Clot, AB20-5 C) - Blood Peripheral, AB20-5 D) - Bone Marrow Aspirate, [id number] 08/20/2019 6:42 PM [facility] Final Diagnosis Bone marrow, aspirate, clot section, and core biopsy: - Normocellular marrow with maturing trilineage hematopoiesis. - No evidence of lymphoma or high-grade myeloid neoplasm. - See description. Peripheral blood smear: - Hypochromic, normocytic anemia. - See description. 08/20/2019 6:42 PM [facility] Comment Overall, the bone marrow specimen is normocellular for age with maturing trilineage hematopoiesis and no evidence of lymphoma, a high-grade myeloid neoplasm, or significant dyspoiesis. Correlation with clinical findings and relevant cytogenetic/molecular testing is required. KR/MM 08/20/2019 6:42 PM [facility] Peripheral Smear Description CBC Data: [...] normal. Platelet morphology: normal. 08/20/2019 6:42 PM [facility] Bone Marrow Aspirate Differential count (200 cells): 1% blasts, 61% maturing myeloid precursors, 25% erythroid progenitors, 1% monocytes, 1% eosinophils, 10% lymphocytes, and 1% plasma cells. Specimen quality: suboptimal. Spicules: absent. Trilineage Hematopoiesis: present. Myeloid:Erythroid ratio: 2.6:1. Myeloid Maturation: Normal. Erythroid Maturation: Normal. Megakaryocyte morphology: too few to adequately assess. 08/20/2019 6:42 PM [facility] Bone Marrow Core Biopsy and [...] performed on the core biopsy in the [facility] Department of Pathology, with appropriately reactive control, to assess for immaturity given the aspiculate aspirate smears and highlights no increase in blasts (less than 5% of the marrow cellularity). 08/20/2019 6:42 PM [facility] Flow Cytometry Summary Concurrent flow cytometry ([id number]) shows no evidence of non-Hodgkin lymphoma or high-grade myeloid neoplasm. 08/20/2019 6:42 PM [facility] Clinical History Anemia. 08/20/2019 6:42 PM [facility] Materials Received Received are 17 slides and 3 blocks labeled as [id number] along with the outside pathology report. The materials originate from [place] [id number]. All materials are returned to the referring institution, along with a copy of our final report. 08/20/2019 6:42 PM [facility] Disclaimer The performance characteristics of all immunohistochemical and indirect immunofluorescence stains (if any) cited in this report were determined by the Hist[facility] of [facility]. Some of these tests were developed by [...] the attending (teaching) pathologist. 08/20/2019 6:42 PM [facility] Embedded Images 08/20/2019 6:42 PM [facility] Pathology/Cytology SPECIMEN FROM BONE MARROW OBTAINED BY ASPIRATION / Unknown 08/20/2019 8:21 AM CONSTRUCTION DRIVER 08/20/2019 8:22 AM CONSTRUCTION DRIVER Miscellaneous samples (specimen) BONE MARROW CLOT SPECIMEN / Unknown 08/20/2019 8:21 AM CONSTRUCTION DRIVER 08/20/2019 8:22 AM CONSTRUCTION DRIVER Miscellaneous samples (specimen) PERIPHERAL BLOOD / Unknown 08/20/2019 8:21 AM CONSTRUCTION DRIVER 08/20/2019 8:22 AM CONSTRUCTION DRIVER Miscellaneous samples (specimen) SPECIMEN FROM BONE MARROW OBTAINED BY ASPIRATION / Unknown 08/20/2019 8:21 AM CONSTRUCTION DRIVER 08/20/2019 8:22 AM CONSTRUCTION DRIVER Tenzin Berry MD LAB - PATHOLOGY/CYTO LOGY ORDERABLES [facility] [address] [place] [address], [facility] [phone] * FLOW CYTOMETRY BONE MARROW (08/18/2019 11:00 AM CONSTRUCTION DRIVER) Case Report Flow Cytometry Case: [id number] Authorizing Provider: Tenzin Berry MD Collected: 08/18/2019 11:00 AM Ordering Location: [facility] Received: 08/18/2019 03:49 PM Pathologist: Glenys Duffy MD Specimen: Bone Marrow 08/19/2019 11:09 AM [facility] Final Diagnosis Bone marrow, flow cytometric immunophenotypic analysis: - No evidence of non-Hodgkin lymphoma or high-grade myeloid neoplasm. - See interpretation. 08/19/2019 11:09 AM [facility] Flow Cytometry Interpretation [...] the flow cytometry specimen is reviewed for chemistry quality control technician purposes. The bone marrow aspirate specimen shows no evidence of involvement by non-Hodgkin lymphoma or a high-grade myeloid neoplasm. Correlation with clinical findings, concurrent bone marrow core biopsy and relevant cytogenetic/molecu lar studies is required. 08/19/2019 11:09 AM [facility] Flow Cytometry Results Differential Result Comment Flow Cell Count /uL 31,200 Total Viability % 100.0 Lymphocytes % 13 Dim CD45 Region % 2 Monocytes % 8 Granulocytes % 76 08/19/2019 11:09 AM [facility] Reason for test 0 11:09 AM [facility] Client Specimen ID # [id number] 08/19/2019 11:09 AM [facility] Number of markers 10 were performed. A-2 Flow CD10 A-3 Flow CD13 A-5 Flow CD20 A-1 Flow CD5 A-4 Flow CD19 A-6 Flow CD33 A-7 Flow CD34 A-8 Flow CD45 A-9 Singer+CD19+ A-10 Lambda+CD19+ 08/19/2019 11:09 AM [facility] Disclaimer Test performed at [facility], [address] [place] [address], [address]. *The established laboratory minimum viability is 70%. [...] high complexity clinical testing. 08/19/2019 11:09 AM CONSTRUCTION DRIVER [facility] Embedded Images 0 11:09 AM CONSTRUCTION DRIVER [facility] Pathology/Cytolo gy BONE MARROW SPECIMEN / Unknown 08/18/2019 11:00 AM CONSTRUCTION DRIVER 08/18/2019 3:49 PM CONSTRUCTION DRIVER Tenzin Berry MD LAB - PATHOLOGY/CYTO LOGY ORDERABLES Performing Organization Address City/State/[facility] Co de Phone Number [facility] [address] [phone] Care Teams Cheese Factory Worker Relationship Specialty Start Date End Date Ray Moreno MD [address] [place] [phone] PCP - General Family Medicine 05/28/23
--- OUTSIDE RECORDS SUMMARY | 2024-09-12 01:21 | XMS_ITS | Continuity of Care Document ---
Author Organization [facility] Address [address] [place] [address] [place] [address] Phone Care Team Providers Care Rough Rounder Machine Name Role Phone Brown OD, Dominik Unavailable [...] Diagnoses Date Provider Providers Copied on Encounter [facility], [address] [place] [address] [address], [place], [place], [id number], tel:[phone] [facility] No Information 0-200 8 Brown OD Dominik. 242[facility] Luke Jimenez [facility] [address], [place], [address], [place]. tel:[phone] Office/outpat ient Visit, Est [facility], [address] [place] [address] [address], [place], [place], [id number], [place] tel:[phone] [facility] No Information 1-200 7 Brown OD Dominik. 242[facility] Luke Jimenez [address], [place], [address], [place]. tel:[phone] Referring Provider: Dominik Brown OD A, [address] [place], [place] [address]ate Luke Jimenez [address], [place], [place], [facility]. tel:[phone] [facility]ly [facility], [address] [place], [place] [address], [place], [place], [id number], tel:[phone] [facility] No Information 0-200 7 Brown OD Dominik. [address] [place] [address] Luke Jimenez [address], [place], [place], [facility], . tel:[phone] Referring Provider: Dominik Mccormack, [address] [place], [place] [address]ate Luke Jimenez [address], [place], [place], [facility]. tel:[phone] [facility], [address] [place], [place] [address] [address], [place], [place], [id number], tel:[phone] [facility] No Information 2-200 7 Brown OD Dominik. [address] [place] [address] Luke Jimenez [address], [place], [place], [facility], . tel:[phone] Referring Provider: Dominik Brown OD A, [address] [place] [address] Luke Jimenez [address], [place], [place], [facility]. tel:[phone] [facility], [address] [place], [place] [address] [address], [place], [place], [id number], tel:[phone] [facility] No Information 5-200 7 Brown OD Dominik. [address] [place] [address] Luke Jimenez, [address], [place], [place], [facility], . tel:[phone] Family History Family Member Type Diagnosis Age At Onset No Information Payers Payer name Insurance type Covered republican ID Authorbulla daisy(s) Medicaid [facility] [id number] Social History Type Description Quantity Date Captured [...]
[2024-09-12 01:24] LABS: Glucose Point of Care > 500 mg/dl (65-105)
[2024-09-12 01:48] LABS: Hematocrit 40.1 % (42.0-52.0); Hemoglobin 12.6 g/dL (14.0-18.0); Mean Corpuscular HGB Conc 31.4 g/dl (32-36); Mean Corpuscular Hemoglobin 26.5 pg (26-34); Mean Corpuscular Volume 84.2 fl (80-100); Mean Platelet Volume 10.3 fl (7.4-10.4); Platelet Count Result 268 k/mm3 (150-375); Red Blood Count 4.76 M/mm3 (4.6-6.20); Red Cell Distribution Width 15.6 % (11.5-14.5); White Blood Count 15.2 K/mm3 (4.5-10.0)
[2024-09-12 01:50] LABS: Alveolar/Arterial O2 Gradient 26.5 mmHg; Base Excess ABG -1.7 mEq/l (+/-2.0); Carboxyhemoglobin 0.5 % THb (0-2.0); Fractional Inspired Oxygen 21 %; HCO3 ABG 23.2 mEq/l (22.0-26.0); Methemoglobin ABG 0.1 %THb (0-1.5); Oxygen Content ABG 18.1 %vol (16.0-22.0); Oxygen Saturation ABG 95.1 % (95.0-100.0); PCO2 ABG 39.6 mmHg (35.0-45.0); PO2 ABG 75.8 mmHg (80.0-100.0); PO2 FiO2 Ratio Arterial Blood 3.61 %; Reduced Hemoglobin 5.4 %THb (0-5.0); Total Hemoglobin 13.7 g/dL (12.0-18.0); pH ABG 7.385 (7.350-7.450)
[2024-09-12 01:53] LABS: Device ROOM AIR; Modified Allen's Test Pass; Site Drawn RIGHT RADIAL
[2024-09-12 02:11] LABS: Alanine Aminotransferase 23 U/L (6-50); Albumin Level 3.2 g/dL (3.5-5.1); Alkaline Phosphatase 134 U/L (38-126); Anion Gap 8 mmol/L (4-12); Aspartate Amino Transferase 15 U/L (17-59); Bilirubin,Total 0.3 mg/dL (0.2-1.3); Blood Urea Nitrogen 43 mg/dL (9-20); Calcium 8.3 mg/dL (8.4-10.2); Carbon Dioxide 25 mmol/L (22-30); Chloride 100 mmol/L (98-107); Estimated CRCL calculation 111 ml/min; Estimated Glomerular Filt Rate > 60; Glucose 619 mg/dL (65-110); Magnesium 2.1 mg/dL (1.6-2.3); Phosphorus 3.4 mg/dL (2.5-4.5); Potassium 4.5 mmol/L (3.4-5.0); Sodium 133 mmol/L (137-145)
[2024-09-12 02:16] LABS: Band Neutrophils Percent 4 % (0-6); Lymphocytes Absolute Manual 3.04 K/mm3 (1.1-4.5); Monocytes Absolute Manual 0.91 K/mm3 (0.1-0.90); Monocytes Percent Manual 6 % (3-9); Neutrophils Absolute Manual 11.24 K/mm3 (1.3-6.7); Neutrophils Percent Manual 70 % (46-73); Total Cells Counted 100
[2024-09-12 02:21] LABS: Schistocytes None Seen
[2024-09-12 02:26] LABS: Beta-Hydroxybutyrate/Acetoacetate 0.08 mmol/L (0.02-0.27)
[2024-09-12 02:30] LABS: Platelet Estimate Adequate (Adequate)
[2024-09-12] MEDS: SODIUM CHLORIDE 0.9% IV 1,000 ML 999 ML IV CONT (02:56)
--- NOTE | 2024-09-12 02:56 | ED.GENADULT ---
HPI - General Adult General Chief complaint: Recheck/Abnormal Lab/Rx Stated complaint: HYPERGLYCEMIA Time Seen by Provider: 09/12/24 01:11 History of Present Illness HPI narrative: Patient is a 39-year-old male who presents to the emergency department this evening complaining of hyperglycemia. Patient states that he has no history of diabetes and approximately 5 years ago he was placed on a lot of steroids for COVID infection which caused his blood glucose level to portillo rocket. Patient states that this past week he got COVID again and was started on Paxil med and steroids and states that his doctor was even a little skeptical about starting him on the steroids knowing that last time he was placed on steroids his sugars were greater than 500. Patient states that today he noticed that he was very thirsty drinking a lot a water and going to the bathroom a lot so he decided to check his blood glucose level and found to be 590 which is what prompted him to come to the emergency department. He is otherwise denying any additional symptoms or concerns. Related Data Home Medications ?Medication ?Instructions ?Recorded ?Confirmed ?Last Taken ?Type albuterol sulfate 90 mcg/actuation 2 puff inhalation QID PRN 05/24/23 05/24/23 Unknown History aerosol inhaler Shortness Of Breath Or Wheezing cyclobenzaprine 5 mg tablet 10 mg PO HS PRN muscle spasm 05/24/23 05/24/23 Unknown History ergocalciferol (vitamin D2) 50,000 50,000 unit PO WEEKLY 05/24/23 05/24/23 Unknown History unit tablet levocetirizine 5 mg tablet 5 mg PO DAILY 05/24/23 05/24/23 Unknown History (Allergy Relief (levocetirizine)) phentermine 15 mg disintegrating 30 mg PO DAILY 05/24/23 05/24/23 Unknown History tablet Allergies Allergy/AdvReac Type Severity Reaction Status Date / Time peanut Allergy Unknown Itching Verified 09/12/24 01:38 Review of Systems Review of Systems: All systems are reviewed and are negative unless stated otherwise in the HPI. [facility] Past Medical History Medical History Pancreatic abnormality Dilated bile duct Upper abdominal pain Morbid obesity Elevated liver enzymes Autoimmune hemolytic anemia UTI (urinary tract infection) Sepsis Pneumonia Surgical History Surgical History H/O vasectomy Family History Family History Mother Skin cancer Social History Social History Social History: Patient quit smoking about 5 years ago after smoking a pack a day for about 12 years. He denies alcohol or drug use. Lives at home with his 2 sons. He is . Children currently staying with his ex-. Patient is a full code. He nominates his ex- Karla be the individual would make medical decisions for him if he is unable. Smoking packs per day: 1 Smoking cigarettes per day: 20.0 Years smoked: 12 Smoking pack-years: 12.00 Smoking status: Never smoker Tobacco type: cigarettes Smoking end date: 08/04/14 Alcohol intake: never Drinks per week: 0 Substance use: never Lack of Transportation: No Lack of Food: Never True Current Housing: I Have Housing Concerned About Future Housing: No Difficulty Paying Gas/Electric Bills: No Difficulty Paying for Meds: No Currently Unemployed: No Education: High School Diploma/GED Difficulty w/ Childcare or Family Care: No Gender identity (if verbalized by the patient): Male Spiritual care concerns: No Agree to blood products: Yes Exam Narrative: General: Alert, awake, afebrile, in no acute distress, obese. HEENT: PERRL, no rhinorrhea, no post nasal drip, oropharynx clear. Neck: Trachea midline, no JVD, no lymphadenopathy. Cardiovascular: Regular rate and rhythm, no murmurs, rubs or gallops, no peripheral edema. Respiratory: Clear to auscultation bilaterally, no tachypnea, no wheezing, no rhonchi, no rubs, no respiratory distress. Abdomen: Soft, nontender, nondistended, no rebound, no guarding, no peritoneal signs. Musculoskeletal: No joint swelling or deformity, normal muscle tone. Skin: No rashes or petechia, no signs of infection. Psychiatric: Alert and oriented, normal behavior and judgment for situation. Neurological: Alert and oriented to person, place, and time. Follows all commands. No focal deficits, speech is clear and fluent. Course Vital Signs Vital signs: Vital Signs Temperature 97.7 F 09/12/24 00:33 Pulse Rate 74 09/12/24 00:33 Respiratory Rate 17 09/12/24 00:33 Blood Pressure 155/88 H 09/12/24 00:33 Pulse Oximetry 97 09/12/24 00:33 Oxygen Delivery Room Air 09/12/24 00:33 Temperature 97.7 F 09/12/24 00:33 Pulse Rate 62 09/12/24 02:15 Respiratory Rate 20 09/12/24 02:15 Blood Pressure 146/80 H 09/12/24 02:01 Pulse Oximetry 94 09/12/24 02:15 Oxygen Delivery Room Air 09/12/24 00:33 Medical Decision Making MDM Narrative Medical decision making narrative: The patient was evaluated by myself in the emergency department. History is obtained from patient who is an independent historian and physical exam was performed. External medical records were reviewed at this time. IV was established and pertinent tests were ordered. Patient was administered 1 L IV fluid bolus with normal saline. Laboratory results obtained revealing a white blood cell count of 15.2 and serum glucose level of 619 both are likely secondary to recent steroid use. Otherwise remainder of the patient's blood work is unremarkable, ABG unremarkable. Urinalysis revealed 3+ glucose, no ketones, 2+ blood. Patient was informed that since his hyperglycemia is secondary to his recent steroid use without any evidence of ketoacidosis, no insulin is indicated at this time as his sugars will gradually normalize. Patient was instructed to refrain from eating a lot of sweets within the next few days and to continue monitoring his blood glucose level at home until his sugars are back in the normal range and patient is agreeable with this plan. Imaging studies obtained included CXR which was independently interpreted by me revealing no acute cardiopulmonary process, which is pending final radiology interpretation. Differential diagnosis considerations include hyperglycemia, diabetic ketoacidosis, dehydration, electrolyte derangements, infectious process such as pneumonia/UTI. Comorbidities impacting this visit include recent steroid use. I have evaluated and discussed social determinants of health with the patient that could potentially impact subsequent diagnosis and treatment plans. On repeat assessment of the patient, reevaluation revealed that the patient is doing well and is in no acute distress. Patient symptoms have improved since he arrived to our emergency department. Repeat vital signs were all reviewed and noted to be stable. Differential diagnosis and treatment plan were discussed with the patient at bedside. Patient agrees with discussion and after shared medical decision making agrees with discharge. All questions were answered to the patient's satisfaction. Patient will follow up with his PCP in 3-5 days. Patient was provided with strict return precautions and instructed to return to the emergency department if any new or worsening symptoms develop. The patient was discharged in stable condition. Vital Signs Vital Signs: Vital Signs Temperature 97.7 F 09/12/24 00:33 Pulse Rate 74 09/12/24 00:33 Respiratory Rate 17 09/12/24 00:33 Blood Pressure 155/88 H 09/12/24 00:33 Pulse Oximetry 97 09/12/24 00:33 Oxygen Delivery Room Air 09/12/24 00:33 Temperature 97.7 F 09/12/24 00:33 Pulse Rate 62 09/12/24 02:15 Respiratory Rate 20 09/12/24 02:15 Blood Pressure 146/80 H 09/12/24 02:01 Pulse Oximetry 94 09/12/24 02:15 Oxygen Delivery Room Air 09/12/24 00:33 Lab Data 09/12/24 01:43 09/12/24 01:43 Labs: Lab Results 09/12/24 09/12/24 09/12/24 Range/Units 00:57 01:22 01:40 WBC (4.5-10.0) K/mm3 RBC (4.6-6.20) M/mm3 Hgb (14.0-18.0) g/dL Hct (42.0-52.0) % MCV (80-100) fl MCH (26-34) pg MCHC (32-36) g/dl RDW (11.5-14.5) % Plt Count (150-375) k/mm3 MPV (7.4-10.4) fl Immature Gran % (Auto) Neut % (Auto) Lymph % (Auto) [facility] % (Auto) Eos % (Auto) Baso % (Auto) Lymph # (Auto) [facility] # (Auto) Eos # (Auto) Baso # (Auto) Abs Immat Gran (auto) Absolute Neuts (auto) Absolute Nucleated RBC Total Counted Neutrophils % (Manual) (46-73) % Band Neutrophils % (0-6) % Lymphocytes % (Manual) (18-44) % Monocytes % (Manual) (3-9) % Nucleated RBC % Abs Neuts (Manual) (1.3-6.7) K/mm3 Abs Lymphs (Manual) (1.1-4.5) K/mm3 Abs Monocytes (Manual) (0.1-0.90) K/mm3 Platelet Estimate (Adequate) Schistocytes Methemoglobin 0.1 (0-1.5) %THb Sodium (137-145) mmol/L Potassium (3.4-5.0) mmol/L Chloride (98-107) mmol/L Carbon Dioxide (22-30) mmol/L Anion Gap (4-12) mmol/L BUN (9-20) mg/dL Creatinine (0.7-1.3) mg/dL Estim Creat Clear Calc ml/min Estimated GFR (59 - ) Glucose (65-110) mg/dL POC Capillary Glucose > 500 H* > 500 H* (65-105) mg/dl Calcium (8.4-10.2) mg/dL Phosphorus (2.5-4.5) mg/dL Magnesium (1.6-2.3) mg/dL Total Bilirubin (0.2-1.3) mg/dL AST (17-59) U/L ALT (6-50) U/L Alkaline Phosphatase (38-126) U/L Total Protein (6.3-8.2) g/dL Albumin (3.5-5.1) g/dL Beta-Hydroxybutyrate/Acetoacetate 0.08 (0.02-0.27) mmol/L Urine Color Yellow (Yellow) Urine Appearance Clear (Clear) Urine pH 6.0 (5.0-9.0) Ur Specific [place] 1.031 (1.001-1.035) Urine Protein 1+ H (Negative) mg/dL Urine Glucose (UA) 3+ H (Negative) mg/dL Urine Ketones Negative (Negative) mg/dL Ur Blood (Man) 2+ H (Negative) Urine Nitrate Negative (Negative) Urine Bilirubin Negative (Negative) Urine Urobilinogen 0.2 (<2.0) mg/dL Leukocyte Esterase Rfl Negative (Negative) MESSI/UL Urine RBC 11-20 H (0-2) /hpf Urine WBC 0-5 (0-3) /hpf Ur Squamous Epith Cells None seen (Few) /hpf Urine Bacteria None seen /hpf Urine Casts 0-2 02// Range/Units 01:43 WBC 15.2 H (4.5-10.0) K/mm3 RBC 4.76 (4.6-6.20) M/mm3 Hgb 12.6 L (14.0-18.0) g/dL Hct 40.1 L (42.0-52.0) % MCV 84.2 (80-100) fl MCH 26.5 (26-34) pg MCHC 31.4 L (32-36) g/dl RDW 15.6 H (11.5-14.5) % Plt Count 268 D (150-375) k/mm3 MPV 10.3 (7.4-10.4) fl Immature Gran % (Auto) Not Reportable Neut % (Auto) Not Reportable Lymph % (Auto) Not Reportable [facility] % (Auto) Not Reportable Eos % (Auto) Not Reportable Baso % (Auto) Not Reportable Lymph # (Auto) Not Reportable [facility] # (Auto) Not Reportable Eos # (Auto) Not Reportable Baso # (Auto) Not Reportable Abs Immat Gran (auto) Not Reportable Absolute Neuts (auto) Not Reportable Absolute Nucleated RBC Not Reportable Total Counted 100 Neutrophils % (Manual) 70 (46-73) % Band Neutrophils % 4 (0-6) % Lymphocytes % (Manual) 20.0 (18-44) % Monocytes % (Manual) 6 (3-9) % Nucleated RBC % Not Reportable Abs Neuts (Manual) 11.24 H (1.3-6.7) K/mm3 Abs Lymphs (Manual) 3.04 (1.1-4.5) K/mm3 Abs Monocytes (Manual) 0.91 H (0.1-0.90) K/mm3 Platelet Estimate Adequate (Adequate) Schistocytes None seen Methemoglobin (0-1.5) %THb Sodium 133 L (137-145) mmol/L Potassium 4.5 (3.4-5.0) mmol/L Chloride 100 (98-107) mmol/L Carbon Dioxide 25 (22-30) mmol/L Anion Gap 8 (4-12) mmol/L BUN 43 H D (9-20) mg/dL Creatinine 1.25 (0.7-1.3) mg/dL Estim Creat Clear Calc 111 ml/min Estimated GFR > 60 (59 - ) Glucose 619 H* (65-110) mg/dL POC Capillary Glucose (65-105) mg/dl Calcium 8.3 L (8.4-10.2) mg/dL Phosphorus 3.4 (2.5-4.5) mg/dL Magnesium 2.1 (1.6-2.3) mg/dL Total Bilirubin 0.3 (0.2-1.3) mg/dL AST 15 L (17-59) U/L ALT 23 (6-50) U/L Alkaline Phosphatase 134 H (38-126) U/L Total Protein 6.0 L (6.3-8.2) g/dL Albumin 3.2 L (3.5-5.1) g/dL Beta-Hydroxybutyrate/Acetoacetate (0.02-0.27) mmol/L Urine Color (Yellow) Urine Appearance (Clear) Urine pH (5.0-9.0) Ur Specific [place] (1.001-1.035) Urine Protein (Negative) mg/dL Urine Glucose (UA) (Negative) mg/dL Urine Ketones (Negative) mg/dL Ur Blood (Man) (Negative) Urine Nitrate (Negative) Urine Bilirubin (Negative) Urine Urobilinogen (<2.0) mg/dL Leukocyte Esterase Rfl (Negative) MESSI/UL Urine RBC (0-2) /hpf Urine WBC (0-3) /hpf Ur Squamous Epith Cells (Few) /hpf Urine Bacteria /hpf Urine Casts ABG Data ABG results: 09/12/24 01:40 Puncture Site Right radial ABG pH 7.385 ABG pCO2 39.6 ABG pO2 75.8 L ABG PO2/FiO2 Ratio 3.61 ABG HCO3 23.2 ABG O2 Saturation 95.1 ABG O2 Content 18.1 ABG Base Excess -1.7 A-a Gradient 26.5 Oxyhemoglobin 94.0 Carboxyhemoglobin 0.5 Reduced Hemoglobin 5.4 H Total Hemoglobin 13.7 O2 Delivery Device Room air O2 Liters/Min Not Reportable FiO2 21 Discharge Plan Discharge Clinical Impression: Acute hyperglycemia Patient Disposition: Home, Self-Care Condition: Improved Instructions: Antibiotic Form, Nondiabetic Hyperglycemia (ED) Additional Instructions: Please follow-up with your family doctor within the next 3-5 days. Return to the emergency department if any new or worsening symptoms develop. Patient Language: Marshallese Prescriptions: No Action albuterol sulfate 90 mcg/actuation HFA aerosol inhaler 2 inh inhalation QID PRN (Reason: shortness of breath or wheezing) Qty: 8.5 0RF naproxen 500 mg tablet 500 mg PO BID PRN (Reason: pain) Qty: 20 0RF ergocalciferol (vitamin D2) 50,000 unit Tablet 50,000 unit PO WEEKLY Rx Instructions: Takes med on wednesdays phentermine 15 mg Tablet,Disintegrating 30 mg PO DAILY albuterol sulfate 90 mcg/actuation Hfa Aerosol Inhaler 2 puff INHALATION QID PRN (Reason: Shortness Of Breath Or Wheezing) levocetirizine [Allergy Relief (levocetirizin)] 5 mg Tablet 5 mg PO DAILY cyclobenzaprine 5 mg tablet 10 mg PO HS PRN (Reason: muscle spasm) Follow-up/Referrals: Josh,MD Ray [Primary Care Provider] - 3 Days Time of Disposition: 03:03
== END 2024-09-12 04:05 | disposition home or self-care (01) ==
PROVIDERS: Emergency Provider Emergency Medicine; PCP Family Medicine
DX: R73.9 Hyperglycemia, unspecified (principal)
CPT/HCPCS: 36415; 36600; 71045; 80053; 81001; 82010; 82375; 82805; 82948; 83050; 83735; 84100; 85018; 85025; 96360; 99283; J7030

== ENCOUNTER 2025-01-10 10:40 | Outpatient (CLI) | payer BC, SELFPAY ==
--- NOTE | ~2025-01-10 | US_ITS ---
EXAMINATION: US venous doppler [facility] DATE: 01/10/2025 11:29 INDICATION: Lower limb swelling TECHNIQUE: Grayscale ultrasound images without and with compression and Doppler ultrasound images of the bilateral lower extremity veins were obtained. COMPARISON: None. FINDINGS: The visualized portions of right common femoral vein, profunda (deep) femoral vein, femoral vein, pop liteal vein, posterior tibial veins, peroneal veins, gastrocnemius vein and greater saphenous vein ou tflow are patent. The visualized portions of left common femoral vein, profunda femoral vein, femoral vein, popliteal v ein, posterior tibial veins, peroneal veins, gastrocnemius vein and greater saphenous vein outflow ar e patent. IMPRESSION: 1. No deep venous thrombosis in either lower limb. Reviewed, dictated and finalized at location A.
== END 2025-01-10 10:41 | disposition home or self-care (01) ==
LOC: MICIMG 10:40
PROVIDERS: PCP Family Medicine; Visit Provider Family Medicine
DX: M79.89 Other specified soft tissue disorders (principal)
CPT/HCPCS: 93970

== ENCOUNTER 2025-04-05 02:53 | Inpatient (IN) | payer BC, SELFPAY ==
--- OUTSIDE RECORDS SUMMARY | 2007-12-18 08:17 | XMS_ITS | Continuity of Care Document ---
Author Organization [facility] Address [address] [place] [address] [place] [address] Phone Care Team Providers Care Rubber Trimmer Name Role Phone Brown OD, Dominik Unavailable Unavailable Procedures Procedure Date Eye Exam & Treatment Office/outpatient Visit, Est Corneal Pachymetry Fundus Photography W/ Report Optic Nerve Topography Optic Nerve Topography Visual Field Examination(s) Eye Exam & Treatment Advance Directives Directive Yes / No Effective Date File Name No Information Encounters Encounter Description Practice Location Reason(s) For Visit Diagnoses Date Provider Providers Copied on Encounter [facility], [address] [place] [address] [address], [place], [place], [id number], tel:[phone] [facility] No Information 0-200 8 Brown OD Dominik. [address] [facility] Luke Jimenez [facility] [address], [place], [address], [place]. tel:[phone] Office/outpat ient Visit, Est [facility], [address] [place] [address] [address], [place], [place], [id number], [place] tel:[phone] [facility] No Information 1-200 7 Brown OD Dominik. [address] [facility] [address], [place], [address], [place]. tel:[phone] Referring Provider: Dominik Brown OD A, [address] [place], [place] [address]ate Luke Jimenez [address], [place], [place], [facility]. tel:[phone] [facility] Eye [facility], [address] [place], [place] [address], [place], [place], [id number], tel:[phone] [facility] No Information 0-200 7 Brown OD Dominik. [address] [place] [address] Luke Jimenez [address], [place], [place], [facility], . tel:[phone] Referring Provider: Dominik Mccormack, [address] [place], [place] [address]ate Luke Jimenez [address], [place], [place], [facility]. tel:[phone] [facility], [address] [place], [place] [address], [place], [place], [id number], tel:[phone] [facility] No Information 2-200 7 Brown OD Dominik. [address] [place] [address] Luke Jim[address], [place], [place], [facility], . tel:[phone] Referring Provider: Dominik Brown OD A, [address] [place] [address] Luke Jimenez [address], [place], [facility]. tel:[phone] [facility], [address] [place], [place] [address], [place], [place], [id number], tel:[phone] [facility] No Information 5-200 7 Brown OD Dominik. [address] [place] [address] Luke Jimenez, [address], [place], [place], [facility], . tel:[phone] Family History Family Member Type Diagnosis Age At Onset No Information Payers Payer name Insurance type Covered constitution party ID Authorbulla daisy(s) Medicaid [facility] [id number] Social History Type Description Quantity Date Captured Comments Sex Male Smoking Status No Information Chief Complaint And Reason For Visit No Information Reason For Referral Reason For Referral No Information History Of Present Illness Encounter Date Complaint History Of Prese nt Illness No Information Functional Status Date Functional Assessmen t No Information Instructions Date Instruction Additional Infor mation No Information Assessments Type Assessment Date No Information Patient Care Teams Name Effective Dates (start - stop) Status Members No Information
[2025-04-05] VITALS (24 sets, daily range): BP systolic 109–140; BP diastolic 57–76; PULSE 60–96; RESP 16–18; TEMP 36.3–36.6; O2SAT 95–100; BMI 53.6
--- NOTE | ~2025-04-05 | XR_ITS ---
X-rays left foot X-rays right foot Indication: Toe infection, evaluate for osteomyelitis Comparison: None Technique: 4 views left foot, 4 views right foot Findings/Impression: Left foot: 1. No evidence of osteomyelitis. 2. No fracture or other acute abnormality. Right foot: 1. No evidence of osteomyelitis. 2. No fracture or other acute bony abnormality. Reviewed, dictated and finalized at location R.
--- NOTE | ~2025-04-05 | US_ITS ---
EXAMINATION: US renal BI DATE: 04/06/2025 20:00 INDICATION: Acute kidney injury. TECHNIQUE: Multiple ultrasound grayscale images of the kidneys were obtained. COMPARISON: MRCP 05/25/2023 FINDINGS: The right kidney measures 13.6 x 4.8 x 5.4 cm. The left kidney measures 13.6 x 6.7 x 5.2 cm. The kidneys demonstrate normal parenchymal echogenicity. There is no hydronephrosis. The bladder is decompressed. IMPRESSION: 1. Normal kidney sizes. No hydronephrosis. Reviewed, dictated and finalized at location E.
--- OUTSIDE RECORDS SUMMARY | 2025-04-05 02:55 | XMS_ITS | Encounter Summary ---
Author Organization [facility] Address [address] [place] [address] Care Team Providers Care Pest Management Supervisor Name Role Phone Ray Moreno MD Primary Care Provider [phone] Encounter Details Date Type Department Care Team (Late st Contact Info) Description 08/20/2019 Lab Requisition [facility] Care Pathology Lab [address] [place] [address] Tenzin Berry MD [address] [id number] Social History Tobacco Use Types Packs/Day Years Used Date Smoking Tobacco: Never Assessed Sex and Gender Information Value Date Recorded Sex Assigned at Male 02/14/2024 3:53 PM CDT Legal Sex Male 3:47 PM LANGUAGE TRANSLATOR Gender Identity Male 02/14/2024 3:53 PM CDT Sexual Orientation Straight 02/14/2024 3: 53 PM CDT documented as of this encounter Plan of Treatment Not on file documented as of this encounter Procedures Procedure Name Priority Date/Time Associated Diagnosis Comments BONE MARROW BIOPSY (STL) Routine 08/20/2019 8:21 AM LANGUAGE TRANSLATOR documented in this encounter Results * BONE MARROW BIOPSY (STL) (08/20/2019 8:21 AM LANGUAGE TRANSLATOR) Case Report Bone Marrow Patholog y Report Case: [id number] Authorizing Provider: Tenzin Berry MD Collected: 08/20/2019 08:21 AM Ordering Location: [facility] Lab Received: 08/20/2019 08:22 AM Pathologist: Patricia Irwin MD Specimens: A) - Bone Marrow Core, AB20-5 B) - Bone Marrow Clot, AB20-5 C) - Blood Peripheral, AB20-5 D) - Bone Marrow Aspirate, AB20-5 08/20/2019 6:42 PM [facility] Final Diagnosis Bone marrow, aspirate, clot section, and core biopsy: - Normocellular marrow with maturing trilineage hematopoiesis. - No evidence of lymphoma or high-grade myeloid neoplasm. - See description. Peripheral blood smear: - Hypochromic, normocytic anemia. - See description. 08/20/2019 6:42 PM [facility] at [address]42 LANGUAGE TRANSLATOR AP Comment Overall, the bone marrow specimen is normocellular for age with maturing trilineage hematopoiesis and no evidence of lymphoma, a high-grade myeloid neoplasm, or significant dyspoiesis. Correlation with clinical findings and relevant cytogenetic/molecular testing is required. KR/MM 08/20/2019 6:42 PM [facility] Peripheral Smear Description [...] normal. Platelet morphology: normal. 08/20/2019 6:42 PM [facility] Bone Marrow Aspirate Differential count (200 cells): 1% blasts, 61% maturing myeloid precursors, 25% erythroid progenitors, 1% monocytes, 1% eosinophils, 10% lymphocytes, and 1% plasma cells. Specimen quality: suboptimal. Spicules: absent. Trilineage Hematopoiesis: present. Myeloid:Erythroid ratio: 2.6:1. Myeloid Maturation: Normal. Erythroid Maturation: Normal. Megakaryocyte morphology: too few to adequately assess. 08/20/2019 6:42 PM [facility] Bone Marrow Core [...] performed on the core biopsy in the [facility] Department of Pathology, with appropriately reactive control, to assess for immaturity given the aspiculate aspirate smears and highlights no increase in blasts (less than 5% of the marrow cellularity). 08/20/2019 6:42 PM [facility] Flow Cytometry Summary Concurrent flow cytometry ([id number]) shows no evidence of non-Hodgkin lymphoma or high-grade myeloid neoplasm. 08/20/2019 6:42 PM [facility] Clinical History Anemia. 08/20/2019 6:42 PM [facility] Materials Received Received are 17 slides and 3 blocks labeled as AB20-5 along with the outside pathology report. [place] [address]. All materials are returned to the referring institution, along with a copy of our final report. 08/20/2019 6:42 PM [facility] Disclaimer The performance characteristics of all immunohistochemical and indirect immunofluorescence stains (if any) cited in this report were determined by the Histopathology Laboratory of [facility]. Some of these tests were developed by [...] the attending (teaching) pathologist. 08/20/2019 6:42 PM [facility] Embedded Images 08/20/2019 6:42 PM [facility] Pathology/Cytology SPECIMEN FROM BONE MARROW OBTAINED BY ASPIRATION / Unknown 08/20/2019 8:21 AM LANGUAGE TRANSLATOR 08/20/2019 8:22 AM LANGUAGE TRANSLATOR Miscellaneous samples (specimen) BONE MARROW CLOT SPECIMEN / Unknown 08/20/2019 8:21 AM LANGUAGE TRANSLATOR 08/20/2019 8:22 AM LANGUAGE TRANSLATOR Miscellaneous samples (specimen) PERIPHERAL BLOOD / Unknown 08/20/2019 8:21 AM LANGUAGE TRANSLATOR 08/20/2019 8:22 AM LANGUAGE TRANSLATOR Miscellaneous samples (specimen) SPECIMEN FROM BONE MARROW OBTAINED BY ASPIRATION / Unknown 08/20/2019 8:21 AM LANGUAGE TRANSLATOR 08/20/2019 8:22 AM LANGUAGE TRANSLATOR us Tenzin Berry MD LAB - PATHOLOGY/CYTOLOGY ORDER DARCY Final Result Performing Organization Address City/State/[facility] Co de Phone Number [facility] [address] [phone] documented in this encounter Visit Diagnoses Not on filedocumented in this encounter Care Teams Pest Management Supervisor Relationship Specialty Start Date End Date Ray Moreno MD [address] [place] [address] PCP - General Family Medicine 05/28/23 documented as of this encounter
--- OUTSIDE RECORDS SUMMARY | 2025-04-05 02:55 | XMS_ITS | Clinical Summary ---
Author Organization [facility] Address [address] [facility] [place] [address] Care Team Providers Care Float Phlebotomist Name Role Phone Ray Moreno MD Primary Care Provider [phone] Source Comments [facility],non-owned Affiliates and Associated Physician Practices is amultiple site organization consisting of ambulatory clinics and hospital sitesin [place], [place], [place] and [place]. This disclosure is being madepursuant to the Care Everywhere program and may not contain all informatio navailable regarding this patient. Last updated 18.[facility] Allergies Active Allergy Reactions Criticality Noted Date Comments Peanut-Derived Other 05/27/2023 Throat irritation Medications * Be aware that medications may not be up to date on this document. Alwaysverify current medications with the patient. traMADol (Ultram) 50 MG tablet Take 1 (one) tablet by mouth as needed for Pain Active cyclobenzaprine (Flexeril) 10 MG tablet Take 1 (one) tablet by mouth 3 times daily Active vitamin D, ergocalciferol, (Drisdol) 1.25 MG (31495 UT) capsule Take 1 (one) capsule by [...] and heating? Not hard at all 05/27/2023 [facility] [place] of Occupat ional Health - Occupational Stress [...] place to sleep or slept in a jail (including now)? No 05/27/2023 Sex and Gender Information Value Date Recorded Sex Assigned at Male 02/14/2024 3:53 PM CDT Legal Sex Male 3:47 PM CHECKER/STOCKER Gender Identity Male 02/14/2024 3:53 PM CDT Sexual Orientation Straight 02/14/2024 3: 53 PM CDT Last Filed Vital Signs Vital Sign Reading Time Taken Comments Blood Pressure 137/85 05/29/2023 11:19 AM CHECKER/STOCKER Pulse 67 05/29/2023 11:19 AM CHECKER/STOCKER Temperature 37 C (98.6 F) 05/29/2023 11:19 AM CHECKER/STOCKER Respiratory Rate 18 05/29/2023 3:32 AM CHECKER/STOCKER Oxygen Saturation 100% 05/29/2023 11: 19 AM CHECKER/STOCKER Inhaled Oxygen Concentration - - Weight 156.1 kg (344 lb 2.2 oz) 023 10:09 PM CHECKER/STOCKER Height 175.3 cm (5' 9.02) 05/27/2023 1 0:09 PM CHECKER/STOCKER Body Mass Index 50.8 05/27/2023 10:09 PM CHECKER/STOCKER Plan of Treatment Health Maintenance Due Date Last Done Comments LIPID TESTING 1983 HIV SCREENING 1998 HEPATITIS C SCREENING 03/13/2001 DTAP/TDAP/TD VACCINES (1 - Tdap) 2002 HEPATITIS B VACCINE (1 of 3 - 19+ 3-dose series) 2002 HPV VACCINE (1 - 3-dose SCDM series) 2010 DEPRESSION SCREENING 07/21/2024 COVID-19 VACCINE (3 - 2024-2 6 season) 2025 10/09/2021, 09/12/2021 INFLUENZA VACCINE (#1) 2025 , 05/16/2020 ZOSTER VACCINE (1 of 2) 2033 HIB VACCINE Aged Out No longer eligi ble based on patient's age to complete this topic MENINGOCOCCAL (Group B) VACCINE SHARED DECISION-MAKING Aged Out No longer eligible based on patient's age to complete this topic MENINGOCOCCAL GROUPS A/C/Y/W VACCINE Aged Out No longer eligible b ased on patient's age to complete this topic PNEUMOCOCCAL VACCINE Aged Out No long er eligible based on patient's age to complete this topic Insurance ANTHEM ANTHEM Advance Directives * Full Code (Latest Code Status on File) Date Activated Date Inactivated Comments 05/27/2023 10:17 PM 05/29/2023 1:19 PM Care Teams Float Phlebotomist Relationship Specialty Start Date End Date Ray Moreno MD [address] [place] [phone] PCP - General Family Medicine 05/28/23
--- OUTSIDE RECORDS SUMMARY | 2025-04-05 02:55 | XMS_ITS | Clinical Summary ---
Author Organization [facility] Address [address] [place] [address] Care Team Providers Care Otolaryngology Surgeon Name Role Phone Ray Moreno MD Primary Care Provider [phone] Medications No known medications Family History Medical History Relation Comments Breast Cancer Mother Multiple myeloma Mother Relation Status Comments Mother Social History Tobacco Use Types Packs/Day Years Used Date Smoking Tobacco: Former Cigarettes Tobacco Cessation:Counseling Given: Yes Alcohol Use Standard Drinks/Week Comments Yes 0 (1 standard drink = 0.6 oz pur e alcohol) PHQ-2 Answer Date Recorded Patient Health Questionnaire-2 Score 0 12/22/2024 Sex and Gender Information Value Date Recorded Sex Assigned at Male 12/21/2024 2:13 PM CDT Legal Sex Male 2:19 PM MEDICAL IMAGING DIRECTOR Gender Identity Male 12/21/2024 2:13 PM CDT Sexual Orientation Straight 12/21/2024 2: 13 PM CDT Last Filed Vital Signs Vital Sign Reading Time Taken Comments Blood Pressure 136/90 12/22/2024 10:33 AM CDT Pulse 78 12/22/2024 10:12 AM CDT Temperature - - Respiratory Rate - - Oxygen Saturation 94% 12/22/2024 10:12 AM CDT Inhaled Oxygen Concentration - - Weight 178.3 kg (393 lb) 12/22/2024 10:12 AM CDT Height - - Body Mass Index - - Plan of Treatment Health Maintenance Due Date Last Done Comments Annual Physical 1986 Hepatitis C 2001 Hepatitis B Vaccines (1 of - 19+ 3-dose series) 2002 COVID-19 Vaccine (2024-2 6 season) 2025 10/09/2021, 09/12/2021 DTaP, Tdap and Td Vaccines ( 2 - Td or Tdap) 09/16/2029 09/16/2019 HPV Vaccines Completed 12/18/2022, 09/10/2021, 05/16/2020 PHQ-2 (Physician [place]) Completed 12/22/2024 Meningococcal B Vaccine Aged Out No l onger eligible based on patient's age to complete this topic Meningococcal Vaccine Aged Out No javy mushtaq eligible based on patient's age to complete this topic Pneumococcal Vaccine: Pediatrics (0 to 5 Years) and At-Risk Patients (6 to 49 Years) Aged Out No longer eligible b ased on patient's age to complete this topic RSV Immunizations Under 20 Months Aged Out No longer eligible b ased on patient's age to complete this topic [place] [address] Care Teams Otolaryngology Surgeon Relationship Specialty Start Date End Date Ray Moreno MD [address] [place] [phone] PCP - General HOSPITALIST 12/22/24
--- OUTSIDE RECORDS SUMMARY | 2025-04-05 02:56 | XMS_ITS | Encounter Summary ---
Author Organization [facility] Address [address] [facility] [place] [address] Care Team Providers Care Resin Remover Name Role Phone Ray Moreno MD Primary Care Provider [phone] Encounter Details Date Type Department Care Team (Late st Contact Info) Description 08/18/2019 Lab Requisition [facility] Care Pathology Lab [address] [place] [address] Tenzin Berry MD [address] [id number] Social History Tobacco Use Types Packs/Day Years Used Date Smoking Tobacco: Never Assessed Sex and Gender Information Value Date Recorded Sex Assigned at Male 02/14/2024 3:53 PM CDT Legal Sex Male 3:47 PM MACHINE PACKAGING TECHNICIAN Gender Identity Male 02/14/2024 3:53 PM CDT Sexual Orientation Straight 02/14/2024 3: 53 PM CDT documented as of this encounter Plan of Treatment Not on file documented as of this encounter Procedures Procedure Name Priority Date/Time Associated Diagnosis Comments FLOW CYTOMETRY BONE MARROW Routine 08/18/2019 11:00 AM MACHINE PACKAGING TECHNICIAN documented in this encounter Results * FLOW CYTOMETRY BONE MARROW (08/18/2019 11:00 AM MACHINE PACKAGING TECHNICIAN) Case Report Flow Cytometry Case: [id number] Authorizing Provider: Tenzin Berry MD Collected: 08/18/2019 11:00 AM Ordering Location: [facility] Care Pathology Lab Received: 08/18/2019 03:49 PM Pathologist: Glenys Duffy MD Specimen: Bone Marrow 08/19/2019 11:09 AM [facility] Final Diagnosis Bone marrow, flow cytometric immunophenotypic analysis: - No evidence of non-Hodgkin lymphoma or high-grade myeloid neoplasm. - See interpretation. 08/19/2019 11:09 AM [facility] at [address] MACHINE PACKAGING TECHNICIAN Flow Cytometry Interpretation The bone marrow specimen [...] the flow cytometry specimen is reviewed for software quality assurance specialist purposes. The bone marrow aspirate specimen shows no evidence of involvement by non-Hodgkin lymphoma or a high-grade myeloid neoplasm. Correlation with clinical findings, concurrent bone marrow core biopsy and relevant cytogenetic/molecu lar studies is required. 08/19/2019 11:09 AM [facility] Flow Cytometry Results Differential Result Comment Flow Cell Count /uL 31,200 Total Viability % 100.0 Lymphocytes % 13 Dim CD45 Region % 2 Monocytes % 8 Granulocytes % 76 08/19/2019 11:09 AM [facility] Reason for test 0 11:09 AM [facility] Client Specimen ID # [id number] 08/19/2019 11:09 AM [facility] Number of markers 10 were performed. A-2 Flow CD10 A-3 Flow CD13 A-5 Flow CD20 A-1 Flow CD5 A-4 Flow CD19 A-6 Flow CD33 A-7 Flow CD34 A-8 Flow CD45 A-9 [place]+CD19+ A-10 Lambda+CD19+ 08/19/2019 11:09 AM [facility] Disclaimer Test performed at [facility], [address] [place] [address], [address]. *The established laboratory minimum viability is 70%. [...] high complexity clinical testing. 08/19/2019 11:09 AM MACHINE PACKAGING TECHNICIAN [facility] PATHOLOGY LAB Embedded Images 0 11:09 AM MACHINE PACKAGING TECHNICIAN [facility] PATHOLOGY LAB Pathology/Cytolo gy BONE MARROW SPECIMEN / Unknown 08/18/2019 11:00 AM MACHINE PACKAGING TECHNICIAN 08/18/2019 3:49 PM MACHINE PACKAGING TECHNICIAN Tenzin Berry MD LAB - PATHOLOGY/CYTOLOGY ORDER DRACY Final Result [facility] PATHOLOGY LAB [address] [phone] documented in this encounter Visit Diagnoses Not on filedocumented in this encounter Care Teams Resin Remover Relationship Specialty Start Date End Date Ray Moreno MD [address] [place] [phone] PCP - General Family Medicine 05/28/23 documented as of this encounter
--- NOTE | 2025-04-05 03:02 | PC.NURSE ---
this rn cleansed all toes witth ns/gauze. RN went between toes gentally with ns soaked gauze pads. New gauze used for each toe.
--- NOTE | 2025-04-05 03:09 | ED.LOWEXIN ---
HPI - Extremity Injury (Lower) General Chief Complaint: Extremity Injury, Lower Stated Complaint: bilateral foot wounds/pain Time Seen by Provider: 04/05/25 02:56 Source: patient Mode of arrival: ambulatory Limitations: no limitations History of Present Illness HPI Narrative: This is a 40-year-old male with history of hypertension who presents to the ED for foot infections. Patient states that 3 weeks ago, he went camping and had multiple flea and bug bites to his bilateral toes. Since then, he has been having a worsening infection to his bilateral toes. He does follow at the wound clinic for leg wounds that he states are managing appropriately. He states that they did look at the wounds a few days ago and just recommended some Bactroban but the wound has continued to worsen prompting him to come to the ED. Denies fevers, chills, chest pain, shortness of breath. Related Data Home Medications ?Medication ?Instructions ?Recorded ?Confirmed ?Last Taken ?Type albuterol sulfate 90 mcg/actuation 2 puff inhalation QID PRN 05/24/23 05/24/23 Unknown History aerosol inhaler Shortness Of Breath Or Wheezing cyclobenzaprine 5 mg tablet 10 mg PO HS PRN muscle spasm 05/24/23 05/24/23 Unknown History ergocalciferol (vitamin D2) 50,000 50,000 unit PO WEEKLY 05/24/23 05/24/23 Unknown History unit tablet levocetirizine 5 mg tablet 5 mg PO DAILY 05/24/23 05/24/23 Unknown History (Allergy Relief (levocetirizine)) phentermine 15 mg disintegrating 30 mg PO DAILY 05/24/23 05/24/23 Unknown History tablet Allergies Allergy/AdvReac Type Severity Reaction Status Date / Time prednisone Allergy Intermediate hyperglycem Verified 04/05/25 02:55 ia peanut Allergy Unknown Itching Verified 04/05/25 02:55 Review of Systems Review of Systems: Gen.: Denies fevers or chills Eyes: Denies eye pain or visual change ENT: Denies congestion Respiratory: Denies shortness of breath or cough CV: Denies chest pain or palpitations GI: Denies abdominal pain nausea, emesis or diarrhea denies burning, urgency, frequency or hematuria Musculoskeletal: Denies back pain or muscle pain Neuro: Denies numbness, tingling, weakness or focal weakness Skin: As per HPI Except as documented, all other systems reviewed and negative [facility] Past Medical History Medical History (Updated 04/05/25 @ 05:37 by Bharath Arcos MD) History of acute pancreatitis (2022) Hypertriglyceridemia Steroid-induced diabetes mellitus (2019) As part of treatment for COVID in 2019 (A1c of 9.6) and in August 2024 (glucoses of 600) Atrial fibrillation with RVR 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 He denies alcohol or drug use. Lives at home with his 2 sons. He is . Children currently staying with his ex-. Patient is a full code. He nominates his ex- Karla be the individual would make medical decisions for him if he is unable. Smoking packs per day: 1 Smoking cigarettes per day: 20.0 Years smoked: 12 Smoking pack-years: 12.00 Smoking status: Never smoker Tobacco type: cigarettes Smoking end date: 08/04/14 Alcohol intake: never Drinks per week: 0 Substance use: never Lack of Transportation: No Lack of Food: Never True Current Housing: I Have Housing Concerned About Future Housing: No Difficulty Paying Gas/Electric Bills: No Difficulty Paying for Meds: No Currently Unemployed: No Education: High School Diploma/GED Difficulty w/ Childcare or Family Care: No Gender identity (if verbalized by the patient): Male Spiritual care concerns: No Agree to blood products: Yes Exam Narrative: APPEARANCE: No acute distress, nontoxic, resting in bed EYES: EOMI HEENT: Normocephalic, atraumatic, OMM RESPIRATORY: No respiratory distress Clear to auscultation bilaterally with no rhonchi wheezing or rales. CARDIOVASCULAR: Regular rate and rhythm without murmurs rubs or gallops. ABDOMINAL: Soft, nontender, nondistended, no rebound or guarding MUSCULOSKELETAl: Moves all extremities. No clubbing, cyanosis or edema. NEURO: Awake and alert. Following commands, speech normal, no focal deficits SKIN:: Multiple draining wounds to all toes of the bilateral feet. PSYCHIATRIC: Normal affect/mood, Course Vital Signs Vital signs: Vital Signs Temperature 97.8 F 04/05/25 02:58 Pulse Rate 77 04/05/25 02:58 Respiratory Rate 18 04/05/25 02:58 Blood Pressure 130/71 04/05/25 02:58 Pulse Oximetry 97 04/05/25 02:58 Oxygen Delivery Room Air 04/05/25 02:58 Temperature 97.8 F 04/05/25 02:58 Pulse Rate 77 04/05/25 02:58 Respiratory Rate 18 04/05/25 02:58 Blood Pressure 130/71 04/05/25 02:58 Pulse Oximetry 97 04/05/25 02:58 Oxygen Delivery Room Air 04/05/25 02:58 MDM - Extremity Injury (Lower) MDM Narrative Medical decision making narrative: 40-year-old male who presents the ED for foot wounds. On initial evaluation, patient was in no acute distress, afebrile and hemodynamically stable. Did have multiple draining foot wounds as described above. Obtain x-rays of the bilateral feet which on my interpretation showed no evidence of osteomyelitis. Patient initially given Bactrim. He had a mild anemia on his CBC but no leukocytosis. CMP revealed a mild hypokalemia. He also had an LEONEL with creatinine at 2.15 and BUN 37. Lactic acidosis at 2.2. On further discussion with the patient, he had been taking as much as 5000 mg of ibuprofen daily for the past few days. This is likely the cause of his LEONEL. He will require admission for further management of his LEONEL as well as is foot wounds. Discussed case with hospitalist who will admit the patient. Patient given vanc/cefepime/Flagyl. Patient is agreeable to this plan. Differential Diagnosis Differential diagnosis: Likely other (Osteomyelitis, cellulitis, electrolyte abnormality, sepsis) Medical Records Attestation: I reviewed the patient's medical records. Lab Data Attestation: I reviewed the patient's lab results. 04/05/25 03:34 04/05/25 03:34 Labs: Lab Results 04/05/25 Range/Units 03:34 WBC 8.6 (4.5-10.0) K/mm3 RBC 4.32 L (4.6-6.20) M/mm3 Hgb 11.2 L (14.0-18.0) g/dL Hct 36.6 L (42.0-52.0) % MCV 84.7 (80-100) fl MCH 25.9 L (26-34) pg MCHC 30.6 L (32-36) g/dl RDW 15.3 H (11.5-14.5) % Plt Count 191 (150-375) k/mm3 MPV 9.9 (7.4-10.4) fl Immature Gran % (Auto) 0.2 (0-0.5) % Neut % (Auto) 71.9 (45.5-73.1) % Lymph % (Auto) 17.7 L (18.3-44.2) % [place] % (Auto) 7.4 (2.6-8.5) % Eos % (Auto) 2.5 (0-4.4) % Baso % (Auto) 0.3 (0.2-1.2) % Lymph # (Auto) 1.53 (0.9-3.2) K/mm3 [place] # (Auto) 0.6 (0.1-0.6) K/mm3 Eos # (Auto) 0.2 (0-0.3) K/mm3 Baso # (Auto) 0.0 (0.0-0.1) K/mm3 Abs Immat Gran (auto) 0.02 (0.00-0.031) K/mm3 Absolute Neuts (auto) 6.2 (1.3-6.7) K/mm3 Absolute Nucleated RBC 0.000 (0.0-0.012) K/mm3 Nucleated RBC % 0.0 (0.0-0.2) % Sodium 138 (137-145) mmol/L Potassium 2.9 L (3.4-5.0) mmol/L Chloride 101 (98-107) mmol/L Carbon Dioxide 28 (22-30) mmol/L Anion Gap 9 (4-12) mmol/L BUN 37 H (9-20) mg/dL Creatinine 2.15 H (0.7-1.3) mg/dL Estim Creat Clear Calc 65 ml/min Estimated GFR 34 L (59 - ) Glucose 184 H (65-110) mg/dL Hemoglobin A1c 5.8 H (<5.7) % Lactic Acid 2.2 H (0.7-2.0) mmol/L Calcium 7.8 L (8.4-10.2) mg/dL Total Bilirubin 0.2 (0.2-1.3) mg/dL AST 19 (17-59) U/L ALT 15 (6-50) U/L Alkaline Phosphatase 64 (38-126) U/L Total Creatine Kinase 44 L (55-170) U/L C-Reactive Protein 4.7 H (<1.0) mg/dL Total Protein 6.8 (6.3-8.2) g/dL Albumin 3.4 L (3.5-5.1) g/dL Imaging Data Attestation: I personally reviewed and interpreted this imaging study as follows: My impression: X-rays of Bilateral feet showed no evidence of osteomyelitis Discharge Plan Discharge Clinical Impression: Wound of foot, Acute hypokalemia, LEONEL (acute kidney injury) Anemia Qualifiers: Anemia type: unspecified type Qualified Code(s): D64.9 - Anemia, unspecified Patient Disposition: Still a Patient Condition: Stable Patient Language: [place]an Prescriptions: No Action albuterol sulfate 90 mcg/actuation HFA aerosol inhaler 2 inh inhalation QID PRN (Reason: shortness of breath or wheezing) Qty: 8.5 0RF naproxen 500 mg tablet 500 mg PO BID PRN (Reason: pain) Qty: 20 0RF ergocalciferol (vitamin D2) 50,000 unit Tablet 50,000 unit PO WEEKLY Rx Instructions: Takes med on wednesdays phentermine 15 mg Tablet,Disintegrating 30 mg PO DAILY albuterol sulfate 90 mcg/actuation Hfa Aerosol Inhaler 2 puff INHALATION QID PRN (Reason: Shortness Of Breath Or Wheezing) levocetirizine [Allergy Relief (levocetirizin)] 5 mg Tablet 5 mg PO DAILY cyclobenzaprine 5 mg tablet 10 mg PO HS PRN (Reason: muscle spasm) Follow-up/Referrals: Josh,MD Ray [Primary Care Provider, Unknown]
[2025-04-05 03:55] LABS: Hematocrit 36.6 % (42.0-52.0); Hemoglobin 11.2 g/dL (14.0-18.0); Immature Granulocyte Percent A 0.2 % (0-0.5); Lymphocytes Absolute Auto 1.53 K/mm3 (0.9-3.2); Mean Corpuscular HGB Conc 30.6 g/dl (32-36); Mean Corpuscular Hemoglobin 25.9 pg (26-34); Mean Corpuscular Volume 84.7 fl (80-100); Nucleated Red Blood Cells Absolute Auto 0.000 K/mm3 (0.0-0.012); Nucleated Red Blood Cells Perc 0.0 % (0.0-0.2); Platelet Count Result 191 k/mm3 (150-375); Red Blood Count 4.32 M/mm3 (4.6-6.20); White Blood Count 8.6 K/mm3 (4.5-10.0)
[2025-04-05 04:03] LABS: Alanine Aminotransferase 15 U/L (6-50); Albumin Level 3.4 g/dL (3.5-5.1); Alkaline Phosphatase 64 U/L (38-126); Anion Gap 9 mmol/L (4-12); Aspartate Amino Transferase 19 U/L (17-59); Bilirubin,Total 0.2 mg/dL (0.2-1.3); Blood Urea Nitrogen 37 mg/dL (9-20); Calcium 7.8 mg/dL (8.4-10.2); Carbon Dioxide 28 mmol/L (22-30); Chloride 101 mmol/L (98-107); Estimated CRCL calculation 65 ml/min; Estimated Glomerular Filt Rate 34; Glucose 184 mg/dL (65-110); Potassium 2.9 mmol/L (3.4-5.0); Sodium 138 mmol/L (137-145); Total Protein 6.8 g/dL (6.3-8.2)
[2025-04-05] MEDS: POTASSIUM CHLORIDE 20 MEQ ER TABLET 40 MEQ PO (04:17)
[2025-04-05] MEDS: SULFAMETHOXAZOLE/TRIMETHOPRIM 800/160 MG DS TABLET 1 TAB PO (04:17)
[2025-04-05] MEDS: SODIUM CHLORIDE 0.9% IV 1,000 ML 999 ML IV CONT ×2 (04:18→05:05)
[2025-04-05] MEDS: MORPHINE SULFATE (*CRX) 4 MG/ML INJ IV PUSH (04:21)
[2025-04-05 04:49] LABS: Creatine Kinase 44 U/L (55-170)
[2025-04-05 05:14] LABS: CRP 4.7 mg/dL (<1.0)
[2025-04-05 05:15] LABS: Hemoglobin A1C 5.8 % (<5.7)
[2025-04-05] MEDS: CEFEPIME 2 GM in SODIUM CHLORIDE 0.9% IV 50 ML 100 ML IVPB ×2 (05:37→17:51)
[2025-04-05] MEDS: SODIUM CHLORIDE 0.9% IV 1,000 ML 125 ML IV CONT ×3 (05:38→21:50)
[2025-04-05] MEDS: metroNIDAZOLE 500 MG/ISO 100ML 500 MG/100 ML BAG 100 MG IVPB ×3 (05:38→21:44)
--- NOTE | 2025-04-05 06:01 | PC.NURSE ---
Report to Roshan RN
[2025-04-05] MEDS: HYDROcodone/acetaminophen (*CRX) 5-325 MG TABLET 1 TAB PO ×3 (06:14→14:54)
[2025-04-05] MEDS: VANCOMYCIN 1,500 MG/NS 500 ML 1,500 MG/500 ML BAG 250 MG IVPB ×2 (07:00→23:43)
--- OUTSIDE RECORDS SUMMARY | 2025-04-05 07:59 | XMS_ITS | Clinical Summary ---
Author Organization [facility] Address [address] [place] [address] Care Team Providers Care Cost And Risk Analysis Manager Name Role Phone Ray Moreno MD Primary Care Provider [phone] Medications No known medications Family History Medical [...] PM CDT Legal Sex Male 2:19 PM GENERAL HANDLING SUPERVISOR Gender Identity Male 12/21/2024 2:13 PM CDT [...] Vaccines Completed 12/18/2022, 09/10/2021, 05/16/2020 PHQ-2 (Physician [place]) Completed 12/22/2024 Meningococcal B Vaccine Aged Out [...] patient's age to complete this topic [place] [address] [address] Care Teams Cost And Risk Analysis Manager Relationship Specialty Start Date End Date Ray Moreno MD [address] [place] [phone] PCP - General HOSPITALIST 12/22/24
--- OUTSIDE RECORDS SUMMARY | 2025-04-05 07:59 | XMS_ITS | Encounter Summary ---
Author Organization [facility] Address [address] [place] [address] Care Team Providers Care Display And Banner Designer Name Role Phone Ray Moreno MD Primary Care Provider [phone] Encounter Details Date Type Department Care Team (Late st Contact Info) Description 08/18/2019 Lab Requisition [facility] Care Pathology Lab [address] [place] [address] Tenzin Berry MD [address] [id number] Social History Tobacco Use Types Packs/Day Years Used Date Smoking Tobacco: Never Assessed Sex and Gender Information Value Date Recorded Sex Assigned at Male 02/14/2024 3:53 PM CDT Legal Sex Male 3:47 PM WATER MAIN INSPECTOR Gender Identity Male 02/14/2024 3:53 PM CDT Sexual Orientation Straight 02/14/2024 3: 53 PM CDT documented as of this encounter Plan of Treatment Not on file documented as of this encounter Procedures Procedure Name Priority Date/Time Associated Diagnosis Comments FLOW CYTOMETRY BONE MARROW Routine 08/18/2019 11:00 AM WATER MAIN INSPECTOR documented in this encounter Results * FLOW CYTOMETRY BONE MARROW (08/18/2019 11:00 AM WATER MAIN INSPECTOR) Case Report Flow Cytometry Case: [id number] Authorizing Provider: Tenzin Berry MD Collected: 08/18/2019 11:00 AM Ordering Location: [facility] Care Pathology Lab Received: 08/18/2019 03:49 PM Pathologist: Glenys Duffy MD Specimen: Bone Marrow 08/19/2019 11:09 AM [facility] Final Diagnosis Bone marrow, flow cytometric immunophenotypic analysis: - No evidence of non-Hodgkin lymphoma or high-grade myeloid neoplasm. - See interpretation. 08/19/2019 11:09 AM [facility] PATH[facility] LAB at 1109 WATER MAIN INSPECTOR Flow Cytometry Interpretation The bone marrow specimen [...] flow cytometry specimen is reviewed for quality compliance consultant purposes. The bone marrow aspirate specimen shows no evidence of involvement by non-Hodgkin lymphoma or a high-grade myeloid neoplasm. Correlation with clinical findings, concurrent bone marrow core biopsy and relevant cytogenetic/molecu lar studies is required. 08/19/2019 11:09 AM [facility] Flow Cytometry Results Differential Result Comment Flow Cell Count /uL 31,200 Total Viability % 100.0 Lymphocytes % 13 Dim CD45 Region % 2 Monocytes % 8 Granulocytes % 76 08/19/2019 11:09 AM [facility] Reason for test 0 11:09 AM [facility] Client Specimen ID # [id number] 08/19/2019 11:09 AM [facility] Number of markers 10 were performed. A-2 Flow CD10 A-3 Flow CD13 A-5 Flow CD20 A-1 Flow CD5 A-4 Flow CD19 A-6 Flow CD33 A-7 Flow CD34 A-8 Flow CD45 A-9 [place]+CD19+ A-10 Lambda+CD19+ 08/19/2019 11:09 AM [facility] Disclaimer Test performed at [facility], [address] [place] [address], [address]. *The established laboratory minimum viability is 70%. [...] high complexity clinical testing. 08/19/2019 11:09 AM WATER MAIN INSPECTOR [facility] PATHOLOGY LAB Embedded Images 0 11:09 AM WATER MAIN INSPECTOR [facility] PATHOLOGY LAB Pathology/Cytolo gy BONE MARROW SPECIMEN / Unknown 08/18/2019 11:00 AM WATER MAIN INSPECTOR 08/18/2019 3:49 PM WATER MAIN INSPECTOR Tenzin Berry MD LAB - PATHOLOGY/CYTOLOGY ORDER DARCY Final Result [facility] LAB [address] [phone] documented in this encounter Visit Diagnoses Not on filedocumented in this encounter Care Teams Display And Banner Designer Relationship Specialty Start Date End Date Ray Moreno MD [address] [place] [phone] PCP - General Family Medicine 05/28/23 documented as of this encounter
--- OUTSIDE RECORDS SUMMARY | 2025-04-05 07:59 | XMS_ITS | Encounter Summary ---
Author Organization [facility] Address [address] [place] [address] Care Team Providers Care Clinical Informaticist Name Role Phone Ray Moreno MD Primary Care Provider Encounter Details Date Type Department Care Team (Late st Contact Info) Description 08/20/2019 Lab Requisition [facility] Care Pathology Lab [address] [place] [address] Tenzin Berry MD [id number] [id number] Social History Tobacco Use Types Packs/Day Years Used Date Smoking Tobacco: Never Assessed Sex and Gender Information Value Date Recorded Sex Assigned at Male 02/14/2024 3:53 PM CDT Legal Sex Male 3:47 PM MILITARY SOURCE OPERATIONS SPECIALIST Gender Identity Male 02/14/2024 3:53 PM CDT Sexual Orientation Straight 02/14/2024 3: 53 PM CDT documented as of this encounter Plan of Treatment Not on file documented as of this encounter Procedures Procedure Name Priority Date/Time Associated Diagnosis Comments BONE MARROW BIOPSY (STL) Routine 08/20/2019 8:21 AM MILITARY SOURCE OPERATIONS SPECIALIST documented in this encounter Results * BONE MARROW BIOPSY (STL) (08/20/2019 8:21 AM MILITARY SOURCE OPERATIONS SPECIALIST) Case Report Bone Marrow Patholog y Report Case: [id number] Authorizing Provider: Tenzin Berry MD Collected: 08/20/2019 08:21 AM Ordering Location: [facility] Care Pathology Lab Received: 08/20/2019 08:22 AM Pathologist: Patricia Irwin MD Specimens: A) - Bone Marrow Core, AB20-5 B) - Bone Marrow Clot, AB20-5 C) - Blood Peripheral, AB20-5 D) - Bone Marrow Aspirate, AB20-5 08/20/2019 6:42 PM [facility] PATHOLOGY LAB Final Diagnosis Bone marrow, aspirate, clot section, and core biopsy: - Normocellular marrow with maturing trilineage hematopoiesis. - No evidence of lymphoma or high-grade myeloid neoplasm. - See description. Peripheral blood smear: - Hypochromic, normocytic anemia. - See description. 08/20/2019 6:42 PM [facility] PATHOLOGY LAB at [address] MILITARY SOURCE OPERATIONS SPECIALIST AP Comment Overall, the bone marrow specimen is normocellular for age with maturing trilineage hematopoiesis and no evidence of lymphoma, a high-grade myeloid neoplasm, or significant dyspoiesis. Correlation with clinical findings and relevant cytogenetic/molecular testing is required. KR/MM 08/20/2019 6:42 PM [facility] Peripheral Smear Description [...] normal. Platelet morphology: normal. 08/20/2019 6:42 PM [facility] Bone Marrow Aspirate Differential count (200 cells): 1% blasts, 61% maturing myeloid precursors, 25% erythroid progenitors, 1% monocytes, 1% eosinophils, 10% lymphocytes, and 1% plasma cells. Specimen quality: suboptimal. Spicules: absent. Trilineage Hematopoiesis: present. Myeloid:Erythroid ratio: 2.6:1. Myeloid Maturation: Normal. Erythroid Maturation: Normal. Megakaryocyte morphology: too few to adequately assess. 08/20/2019 6:42 PM [facility] Bone Marrow Core [...] of the marrow cellularity). 08/20/2019 6:42 PM [facility] LAB Flow Cytometry Summary Concurrent flow cytometry ([id number]) shows no evidence of non-Hodgkin lymphoma or high-grade myeloid neoplasm. 08/20/2019 6:42 PM [facility] LAB Clinical History Anemia. 08/20/2019 6:42 PM [facility] Materials Received Received are 17 slides and 3 blocks labeled as AB20-5 along with the outside pathology report. [place] [address]. All materials are returned to the referring institution, along with a copy of our final report. 08/20/2019 6:42 PM [facility] Disclaimer The performance characteristics of all immunohistochemical and indirect immunofluorescence stains (if any) cited in this report were determined by the Histopathology Laboratory of [facility]. Some of these tests were developed by [...] the attending (teaching) pathologist. 08/20/2019 6:42 PM [facility] Embedded Images 08/20/2019 6:42 PM [facility] LAB Pathology/Cytology SPECIMEN FROM BONE MARROW OBTAINED BY ASPIRATION / Unknown 08/20/2019 8:21 AM MILITARY SOURCE OPERATIONS SPECIALIST 08/20/2019 8:22 AM MILITARY SOURCE OPERATIONS SPECIALIST Miscellaneous samples (specimen) BONE MARROW CLOT SPECIMEN / Unknown 08/20/2019 8:21 AM MILITARY SOURCE OPERATIONS SPECIALIST 08/20/2019 8:22 AM MILITARY SOURCE OPERATIONS SPECIALIST Miscellaneous samples (specimen) PERIPHERAL BLOOD / Unknown 08/20/2019 8:21 AM MILITARY SOURCE OPERATIONS SPECIALIST 08/20/2019 8:22 AM MILITARY SOURCE OPERATIONS SPECIALIST Miscellaneous samples (specimen) SPECIMEN FROM BONE MARROW OBTAINED BY ASPIRATION / Unknown 08/20/2019 8:21 AM MILITARY SOURCE OPERATIONS SPECIALIST 08/20/2019 8:22 AM MILITARY SOURCE OPERATIONS SPECIALIST us Tenzin Berry MD LAB - PATHOLOGY/CYTOLOGY ORDER DARCY Final Result Performing Organization Address City/State/[facility] Co de Phone Number [facility] PATHOLOGY LAB [address] [phone] documented in this encounter Visit Diagnoses Not on filedocumented in this encounter Care Teams Clinical Informaticist Relationship Specialty Start Date End Date Ray Moreno MD [address] [place] [phone] PCP - General Family Medicine 05/28/23 documented as of this encounter
--- OUTSIDE RECORDS SUMMARY | 2025-04-05 07:59 | XMS_ITS | Clinical Summary ---
Author Organization [facility] Address [address] [facility] [place] [address] Care Team Providers Care Field Professional Name Role Phone Ray Moreno MD Primary Care Provider Source Comments [facility],non-owned Affiliates and Associated Physician Practices is amultiple site organization consisting of ambulatory clinics and hospital sitesin [place], [place], [place] and [place]. This disclosure is being madepursuant to the Care Everywhere program and may not contain all informatio navailable regarding this patient. Last updated 18.[facility] Allergies Active Allergy Reactions Criticality Noted Date [...] Active vitamin D, ergocalciferol, (Drisdol) 1.25 MG (79588 UT) capsule Take 1 (one) capsule by [...] and heating? Not hard at all 05/27/2023 [facility] - Occupational Stress [...] place to sleep or slept in a detention (including now)? No 05/27/2023 Sex and Gender Information Value Date Recorded Sex Assigned at Male 02/14/2024 3:53 PM CDT Legal Sex Male 3:47 PM TOOL PROCUREMENT COORDINATOR Gender Identity Male 02/14/2024 3:53 PM CDT Sexual Orientation Straight 02/14/2024 3: 53 PM CDT Last Filed Vital Signs Vital Sign Reading Time Taken Comments Blood Pressure 137/85 05/29/2023 11:19 AM TOOL PROCUREMENT COORDINATOR Pulse 67 05/29/2023 11:19 AM TOOL PROCUREMENT COORDINATOR Temperature 37 C (98.6 F) 05/29/2023 11:19 AM TOOL PROCUREMENT COORDINATOR Respiratory Rate 18 05/29/2023 3:32 AM TOOL PROCUREMENT COORDINATOR Oxygen Saturation 100% 05/29/2023 11: 19 AM TOOL PROCUREMENT COORDINATOR Inhaled Oxygen Concentration - - Weight 156.1 kg (344 lb 2.2 oz) 023 10:09 PM TOOL PROCUREMENT COORDINATOR Height 175.3 cm (5' 9.02) 05/27/2023 1 0:09 PM TOOL PROCUREMENT COORDINATOR Body Mass Index 50.8 05/27/2023 10:09 PM TOOL PROCUREMENT COORDINATOR Plan of Treatment Health Maintenance Due Date [...] 10:17 PM 05/29/2023 1:19 PM Care Teams Field Professional Relationship Specialty Start Date End Date Ray Moreno MD [address] [place] [phone] PCP - General Family Medicine 05/28/23
--- NOTE | 2025-04-05 14:36 | PM.IMHP ---
H&P: HPI History of Present Illness Date/Time: 04/05/25 14:36 Chief Complaint: Bilateral feet swelling and redness Narrative: 40 yo male with PMH of pancreatitis, steroid induced DM, afib and AIHA who presented to the ER on account bilateral leg pain and ulcer with redness. Patient noted that he had flea bites about a week ago, for which he was given topical meds for by his wound care doctor, however on friday he noticed redness, bilateral feet pain and blebs, which worsened prompting presenting to the ER. Denies any vomiting, abd pain, diarrhea, chest pain, SOB, and no falls or focal weakness. Er eval vital signs stabvel adn within normal limits, WBC 15.2, Cr 2.15, BG 184, A1c 5.8, LA 2.2, Feet xray no acute changes. patien was started on Cefepime/Flagyl and Vanc. Review of Systems Review of Systems: All other systems were reviewed and negative except as noted in the HPI above. 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 He denies alcohol or drug use. Lives at home with his 2 sons. He is . Children currently staying with his ex-. Patient is a full code. He nominates his ex- Karla be the individual would make medical decisions for him if he is unable. Smoking packs per day: 1 Smoking cigarettes per day: 20.0 Years smoked: 20 Smoking pack-years: 20.00 Smoking status: Former smoker Tobacco type: cigarettes Second hand tobacco smoke exposure: Yes Smoking end date: 04/05/17 Alcohol intake: never Drinks per week: 0 Substance use: never Lack of Transportation: No Lack of Food: Never True Current Housing: I Have Housing Concerned About Future Housing: No Difficulty Paying Gas/Electric Bills: No Difficulty Paying for Meds: No Currently Unemployed: No Education: Bachelor's Degree Difficulty w/ Childcare or Family Care: No Gender identity (if verbalized by the patient): Male Spiritual care concerns: No Agree to blood products: Yes Meds Home Medications and Allergies Home Medications ?Medication ?Instructions ?Recorded ?Confirmed ?Type cyclobenzaprine 5 mg tablet 10 mg PO HS PRN muscle spasm 05/24/23 04/05/25 History ergocalciferol (vitamin D2) 50,000 50,000 unit PO WEEKLY 05/24/23 04/05/25 History unit tablet levocetirizine 5 mg tablet 5 mg PO DAILY 05/24/23 04/05/25 History (Allergy Relief (levocetirizine)) chlorthalidone 25 mg tablet mg 04/05/25 History ferrous sulfate 325 mg (65 mg mg 04/05/25 History iron) tablet (FeroSul) levothyroxine 25 mcg tablet mcg 04/05/25 History losartan 25 mg tablet mg 04/05/25 History testosterone cypionate 200 mg/mL mg 04/05/25 History intramuscular oil Allergies Allergy/AdvReac Type Severity Reaction Status Date / Time prednisone Allergy Intermediate hyperglycem Verified 04/05/25 02:55 ia peanut Allergy Unknown Itching Verified 04/05/25 02:55 Vital Signs Vital Signs - 24 hr 04/05/25 02:58 04/05/25 03:06 04/05/25 03:15 Temperature 97.8 F Pulse Rate 77 Respiratory Rate 18 Blood Pressure 130/71 Pulse Oximetry 97 98 97 Oxygen Delivery Room Air 04/05/25 03:16 04/05/25 03:31 04/05/25 03:45 Temperature Pulse Rate Respiratory Rate Blood Pressure 120/69 Pulse Oximetry 96 97 96 Oxygen Delivery 04/05/25 04:00 04/05/25 04:15 04/05/25 04:30 Temperature Pulse Rate Respiratory Rate Blood Pressure 117/73 Pulse Oximetry 95 95 97 Oxygen Delivery 04/05/25 04:31 04/05/25 04:32 04/05/25 04:45 Temperature Pulse Rate Respiratory Rate Blood Pressure 121/67 Pulse Oximetry 98 96 97 Oxygen Delivery 04/05/25 04:46 04/05/25 05:00 04/05/25 05:01 Temperature Pulse Rate Respiratory Rate Blood Pressure 140/61 123/66 Pulse Oximetry 99 97 97 Oxygen Delivery 04/05/25 05:15 04/05/25 05:16 04/05/25 05:30 Temperature Pulse Rate Respiratory Rate Blood Pressure 125/76 Pulse Oximetry 97 97 97 Oxygen Delivery 04/05/25 05:31 04/05/25 05:59 04/05/25 07:53 Temperature 97.6 F Pulse Rate 96 96 Respiratory Rate 16 16 Blood Pressure 124/70 124/70 Pulse Oximetry 96 96 96 Oxygen Delivery Room Air 04/05/25 08:34 Temperature 97.3 F L Pulse Rate 60 Respiratory Rate 18 Blood Pressure 109/57 L Pulse Oximetry 100 Oxygen Delivery Exam Narrative: General: alert and comfortable Eyes: EOMI, PERRLA ENNT External ears normal, Neck is supple, no masses, Respiratory systems: Clear to auscultation Cardiovascular S1, S2, normal rhythm, no murmur, rub, or gallop; no thrill or palpable murmurs on palpation. Gastrointestinal: soft, non-tender, and non-distended abdomen with no masses; BS present Skin: multiple small ulcers bilateral feet, with eythema and tender to touch Musculoskeletal: no abnormality and no tenderness, normal ROM Neurologic: Alert and oriented x3, non focal Mental Status Exam: normal affect H&P: Results Labs Labs: Short CBC 04/05/25 Range/Units 03:34 WBC 8.6 (4.5-10.0) K/mm3 Hgb 11.2 L (14.0-18.0) g/dL Hct 36.6 L (42.0-52.0) % Plt Count 191 (150-375) k/mm3 BMP 04/05/25 03:34 Sodium 138 Potassium 2.9 L Chloride 101 Carbon Dioxide 28 BUN 37 H Creatinine 2.15 H Glucose 184 H Calcium 7.8 L Cardiac Enzymes 04/05/25 Range/Units 03:34 Total Creatine Kinase 44 L (55-170) U/L Liver Function 04/05/25 Range/Units 03:34 Total Bilirubin 0.2 (0.2-1.3) mg/dL AST 19 (17-59) U/L ALT 15 (6-50) U/L Alkaline Phosphatase 64 (38-126) U/L Albumin 3.4 L (3.5-5.1) g/dL Assessment and Plan Assessment and plan (1) Acute hypokalemia: Code(s): E87.6 - Hypokalemia Status: Acute (2) LEONEL (acute kidney injury): Code(s): N17.9 - Acute kidney failure, unspecified Status: Acute (3) Cellulitis of left foot: Code(s): L03.116 - Cellulitis of left lower limb Status: Acute Plan Bilateral feet cellulitis with multiple ulcer draining pus Blood culture continue CEfepime/Flagyl and Vanc COntinue PRN IV morphine for pain control monitor Steroid induced DM2 Contineu SSI with accucheks, diabetic Afib Continue home meds AIHA, stable not on steroid, Hb 11.2 monitor Hpothyroidism continue home meds Patient on Testosterone replacement DVT prophylaxis on Sq Lovenox Full code
[2025-04-05] MEDS: HYDROcodone/acetaminophen (*CRX) 10-325 MG TABLET 1 TAB PO ×2 (18:45→23:43)
[2025-04-05] MEDS: CYCLOBENZAPRINE HCL 10 MG TABLET PO (21:44)
[2025-04-06] MEDS: FAMOTIDINE 20 MG/2 ML VIAL IV PUSH (00:11)
[2025-04-06] MEDS: CEFEPIME 2 GM in SODIUM CHLORIDE 0.9% IV 50 ML 100 ML IVPB (03:57)
[2025-04-06] MEDS: HYDROcodone/acetaminophen (*CRX) 10-325 MG TABLET 1 TAB PO ×4 (03:57→17:54)
[2025-04-06 05:16] LABS: Hematocrit 37.1 % (42.0-52.0); Hemoglobin 11.1 g/dL (14.0-18.0); Immature Granulocyte Percent A 0.7 % (0-0.5); Lymphocytes Absolute Auto 0.46 K/mm3 (0.9-3.2); Mean Corpuscular HGB Conc 29.9 g/dl (32-36); Mean Corpuscular Hemoglobin 25.6 pg (26-34); Mean Corpuscular Volume 85.7 fl (80-100); Nucleated Red Blood Cells Absolute Auto 0.000 K/mm3 (0.0-0.012); Nucleated Red Blood Cells Perc 0.0 % (0.0-0.2); Platelet Count Result 169 k/mm3 (150-375); Red Blood Count 4.33 M/mm3 (4.6-6.20); White Blood Count 8.5 K/mm3 (4.5-10.0)
[2025-04-06] MEDS: LEVOTHYROXINE SODIUM 25 MCG TABLET PO (05:27)
[2025-04-06 05:37] LABS: Alanine Aminotransferase 14 U/L (6-50); Albumin Level 3.5 g/dL (3.5-5.1); Alkaline Phosphatase 62 U/L (38-126); Anion Gap 7 mmol/L (4-12); Aspartate Amino Transferase 18 U/L (17-59); Bilirubin,Total 0.2 mg/dL (0.2-1.3); Blood Urea Nitrogen 30 mg/dL (9-20); Calcium 7.9 mg/dL (8.4-10.2); Carbon Dioxide 24 mmol/L (22-30); Chloride 106 mmol/L (98-107); Estimated CRCL calculation 65 ml/min; Estimated Glomerular Filt Rate 36; Glucose 215 mg/dL (65-110); Magnesium 2.1 mg/dL (1.6-2.3); Potassium 3.9 mmol/L (3.4-5.0); Sodium 137 mmol/L (137-145); Total Protein 6.9 g/dL (6.3-8.2)
[2025-04-06 06:00] VITALS: BP 118/69; PULSE 66; RESP 16; TEMP 36.1; O2SAT 94
[2025-04-06] MEDS: FERROUS SULFATE 325 MG TABLET PO (08:29)
--- NOTE | 2025-04-06 09:32 | P.CDI_ITS ---
<Statement entered by Yaquelin De Leon MD - 04/12/25 20:55> This documentation has been reviewed and approved. class 3 obesity CDI Query Clarification Request Patient with a BMI of 53.6 please provide a diagnosis to accompany this finding: * Overweight * Obesity * Morbid Obesity * Other/Unknown
--- NOTE | 2025-04-06 09:32 | WPDCDIQUERY2 ---
CDI Query Clarification Request Patient with a BMI of 53.6 please provide a diagnosis to accompany this finding: Overweight Obesity Morbid Obesity Other/Unknown
[2025-04-06 12:59] LABS: MRSA (PCR) NOT DETECTED (NOT DETECTE)
[2025-04-06 14:00] VITALS: BP 124/65; PULSE 69; RESP 16; TEMP 36.4; O2SAT 96
[2025-04-06] MEDS: VANCOMYCIN 1,500 MG/NS 500 ML 1,500 MG/500 ML BAG 250 MG IVPB (17:21)
[2025-04-06] MEDS: SODIUM CHLORIDE 0.9% IV 1,000 ML 125 ML IV CONT (17:33)
[2025-04-06 17:50] LABS: INR 1.1; Partial Thromboplastin Time 29.0 Seconds (22.3-36.8); Prothrombin Time 14.3 Seconds (11.1-14.7)
[2025-04-06] MEDS: INSULIN ASPART (*BKC) 100 UNITS/ML SUB-Q ×2 (17:50→20:58)
[2025-04-06 17:51] LABS: Add Urine Microscopic? YES; Appearance Urine Cloudy (Clear); Glucose Urine UA 3+ mg/dL (Negative); Leukocyte Esterase Ur Trace LEU/UL (Negative); Nitrate Urine Negative (Negative); Specific Grav Ur 1.020 (1.001-1.035)
[2025-04-06 17:57] LABS: Urine Eos QC 2nd Tech Confirmed
[2025-04-06 19:43] VITALS: PULSE 73; RESP 20; O2SAT 95
--- NOTE | 2025-04-06 19:45 | WPDIDCN ---
Assessment and Plan Assessment and plan (1) Lower extremity cellulitis: Code(s): L03.119 - Cellulitis of unspecified part of limb Status: Acute (2) Wound of foot: Code(s): S91.309A - Unspecified open wound, unspecified foot, initial encounter Status: Acute (3) Morbid obesity with body mass index (BMI) greater than or equal to 50: Code(s): E66.01 - Morbid (severe) obesity due to excess calories Status: Acute (4) Drug-induced maculopapular rash: Code(s): L27.0 - Generalized skin eruption due to drugs and medicaments taken internally Status: Acute Plan # Bilateral lower extremity lesions related to recent flea infestation exposure and subsequent self-inflicted excoriation wounds. -- lesions may represent inflammation from original flea bites with additional self-inflicted scratch excoriation. Risk of secondary infection but overall not classic for extensive cellulitis. -- however, he did present with some degree of leukocytosis which has improved on antibiotics. # Obesity with bilateral lower extremity acute on chronic edema and early stasis dermatitis. # Acute maculopapular reaction to upper extremity and torso suggestive of drug reaction. Suspect cefepime. Plan: -- Would discontinue both cefepime and metronidazole. Continue with vancomycin. -- avoid cephalosporins. Avoid Betadine --further recommendations to follow. Thank you for the consult. Patient was seen via video telehealth consultation with the assistance of staff. Chart, data, and patient independently reviewed. Patient was located at [facility] while I was located in my [place] office. Received verbal consent from patient. [facility] Data of Consult Date/Time: 04/06/25 19:45 Requesting Physician: Dunia Chadwick DO Primary Care Provider: Ray MorenoMD Consult Narrative Reason for consult: leg wounds Narrative: Zheng Carrizales is a 40 year old male with history of atrial fibrillation in [facility], steroid induced diabetes, pancreatitis, and obesity. Also with chronic bilateral lower extremity edema and early patchy stasis dermatitis. Describes lower extremity skin to be friable and prone to tears. Has a wound care doctor. Current presentation involving exposure to fleas with post excoriation development of inflammatory lesions including blister formation. This was treated with local Betadine that may have exacerbated these wounds. Afebrile but with presentation leukocytosis that since has resolved on antibiotics. Initially placed on cefepime, metronidazole, and vancomycin but subsequently developed rash primarily involving bilateral upper extremities and patchy areas of torso. 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 He denies alcohol or drug use. Lives at home with his 2 sons. He is . Children currently staying with his ex-. Patient is a full code. He nominates his ex- Karla be the individual would make medical decisions for him if he is unable. Smoking packs per day: 1 Smoking cigarettes per day: 20.0 Years smoked: 20 Smoking pack-years: 20.00 Smoking status: Former smoker Tobacco type: cigarettes Second hand tobacco smoke exposure: Yes Smoking end date: 04/05/17 Alcohol intake: never Drinks per week: 0 Substance use: never Lack of Transportation: No Lack of Food: Never True Current Housing: I Have Housing Concerned About Future Housing: No Difficulty Paying Gas/Electric Bills: No Difficulty Paying for Meds: No Currently Unemployed: No Education: Bachelor's Degree Difficulty w/ Childcare or Family Care: No Gender identity (if verbalized by the patient): Male Spiritual care concerns: No Agree to blood products: Yes Meds Home Medications and Allergies Home Medications ?Medication ?Instructions ?Recorded ?Confirmed ?Type cyclobenzaprine 5 mg tablet 10 mg PO HS PRN muscle spasm 05/24/23 04/05/25 History ergocalciferol (vitamin D2) 50,000 50,000 unit PO WEEKLY 05/24/23 04/05/25 History unit tablet levocetirizine 5 mg tablet 5 mg PO DAILY 05/24/23 04/05/25 History (Allergy Relief (levocetirizine)) chlorthalidone 25 mg tablet 25 mg PO DAILY 04/05/25 04/05/25 History ferrous sulfate 325 mg (65 mg 325 mg PO DAILY 04/05/25 04/05/25 History iron) tablet (FeroSul) levothyroxine 25 mcg tablet 25 mcg PO DAILY@0630 04/05/25 04/05/25 History losartan 25 mg tablet 25 mg PO BID 04/05/25 04/06/25 History testosterone cypionate 200 mg/mL 200 mg IM .biweekly 04/05/25 04/05/25 History intramuscular oil Allergies Allergy/AdvReac Type Severity Reaction Status Date / Time cefepime Allergy Intermediate Rash Verified 04/06/25 10:52 peanut Allergy Unknown Itching Verified 04/05/25 02:55 Vital Signs Vital Signs - 24 hr 04/05/25 22:00 04/06/25 06:00 04/06/25 08:40 Temperature 97.3 F L 97.0 F L Pulse Rate 73 66 Respiratory Rate 18 16 Blood Pressure 129/62 118/69 Pulse Oximetry 98 94 Oxygen Delivery Room Air Fraction of Inspired Oxygen 04/06/25 14:00 04/06/25 19:43 Temperature 97.6 F Pulse Rate 69 73 Respiratory Rate 16 20 Blood Pressure 124/65 Pulse Oximetry 96 95 Oxygen Delivery Room Air Fraction of Inspired Oxygen 21 Exam Narrative: He is awake and alert nontoxic. Obesity. Directed exam significant for bilateral lower extremity acute on chronic edema. Has evidence of patchy primarily pretibial hyper pigmentation suggestive of chronic stasis dermatitis. Areas of bilateral thighs, further lower extremity, and feet with annular wounds and some with dried blood. Patchy surrounding erythema. Skin also with bilateral upper extremity maculopapular eruption. Also seen to less degree on torso. Results Labs 04/06/25 05:08 04/06/25 05:08 Labs: Short CBC 04/06/25 Range/Units 05:08 WBC 8.5 (4.5-10.0) K/mm3 Hgb 11.1 L (14.0-18.0) g/dL Hct 37.1 L (42.0-52.0) % Plt Count 169 (150-375) k/mm3 BMP 04/06/25 05:08 Sodium 137 Potassium 3.9 Chloride 106 Carbon Dioxide 24 BUN 30 H Creatinine 2.06 H Glucose 215 H Calcium 7.9 L Liver Function 04/06/25 Range/Units 05:08 Total Bilirubin 0.2 (0.2-1.3) mg/dL AST 18 (17-59) U/L ALT 14 (6-50) U/L Alkaline Phosphatase 62 (38-126) U/L Albumin 3.5 (3.5-5.1) g/dL Urine 04/06/25 Range/Units 17:35 Urine Color Yellow (Yellow) Urine Appearance Cloudy H (Clear) Urine pH 5.0 (5.0-9.0) Ur Specific Paia 1.020 (1.001-1.035) Urine Protein 2+ H (Negative) mg/dL Urine Glucose (UA) 3+ H (Negative) mg/dL
[2025-04-06 22:00] VITALS: BP 116/58; PULSE 75; RESP 18; TEMP 36.9; O2SAT 96
--- NOTE | 2025-04-06 22:01 | P.PNIM_ITS ---
Progress Note: A&P Assessment and Plan (1) Acute renal failure: Code(s): N17.9 - Acute kidney failure, unspecified Status: Acute (2) Morbid obesity with body mass index (BMI) greater than or equal to 50: Code(s): E66.01 - Morbid (severe) obesity due to excess calories Status: Acute (3) Anemia: Qualifiers: Anemia type: unspecified type Qualified Code(s): D64.9 - Anemia, unspecified Code(s): D64.9 - Anemia, unspecified Status: Acute (4) Petechiae: Code(s): R23.3 - Spontaneous ecchymoses Status: Acute Plan the pt's presenting complaint --> 2 weeks of progressively worsening leg rash. he thought it was a flea bite but they began to spread. he has not traveled out of country recently or been camping. he visited a sister in [place] but did not adventure outdoors. he denies smoking, drugs, alcohol abuse, being incarcerated. the rash is petechial hemorrhage which are painful to palpation, they have progressed to necrotic lesions. the petechial rash then appears under his pannus. after admission they appears under his axilla and upper arms which he reports to be itchy. ID consultation noted, abx dc'ed except vancomycin, suspected flea infestation and possible superimposed cellulitis. at this time he has LEONEL and vancomycin can be nephrotoxic. will d/c vancomycin and speak with ID, although the originally described pus on admission appears to be slough from his necrotic lesions. there is no odor or angry erythema to indicate infection. WBC normal. if we need abx I believe cephalosporin would be good to use he has an LEONEL. nephrology has been consulted. check renal ultrasound, and UA. start fluids. 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 I have ordered ANCA testing. CRP elevated on admission. continue to trend. anemia is stable. was previously placed in iron by PCP but his iron and ferritin appear adequate. has AIHA, plts are low normal range, PT and PTT accetpable. pt has done some research and wants to check HIV screening as he has had unprotected sex. I obliged. he is breathing fine without cough, no nasal hemorrhage, lung exam is clear. at this time we will start pulse dose steroids for induction therapy for vasculitis. 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 accuchecks q6hr with LDISS, can increase to MDISS if needed. general surgery has performed a punch biopsy of one of the lesions and their assistance is greatly appreciated. await biopsy results and will adjust mgmt as needed. if vasculitis is proven will contact rheumatology at a tertiary institution to request transfer or more likely recommendations for discharge medications and follow up if he is stable. Subjective Date/time seen: 04/06/25 22:01 Interval history: no major acute overnight events. pt tells me about a month ago he was stared on a water pill, levothyroxine, iron pill, and testosterone replacement. reports the lesions are itchy at the upper extremities and painful at the lower extremities. see A&P for further details. Review of Systems Review of Systems: All systems reviewed & are unremarkable except as noted in HPI and below (subjective) Exam Const: General: comfortable and no acute distress Other: obese, A&Ox3 HENMT: Mouth: Yes moist mucous membranes Other: no erythema, lesions, pus of the oral cavity Eyes: Pupils: Equal, round and reactive pupils present Other: no conjunctiva hemorrhage Neck: Neck: supple Lymphatic: lymphadenopathy not noted Resp: Effort & Inspection: normal respiratory effort Auscultation: clear to auscultation bilaterally Cardio: Rate: regular rate Rhythm: regular rhythm GI: Inspection: non-distended GI Palp: Yes Soft to palpation Auscultation: normal bowel sounds Skin: Other: petechia of b/l feet, no hemorrhages of the nail beds. painful papules, necrotic ulcers with dried blood at the toes which are painful to palpation. no foul odor or pus drainage, slough accumulation. no angry erythema Neuro: Motor exam (neuro): 5/5 motor strength present throughout Extrem: Other: 1+ pitting edema b/l lower extremities Psych: Mental Status: mental status grossly normal Objective Data Vital Signs Vital Signs: Vital Signs - 24 hr 04/06/25 06:00 04/06/25 08:40 04/06/25 14:00 Temperature 97.0 F L 97.6 F Pulse Rate 66 69 Respiratory Rate 16 16 Blood Pressure 118/69 124/65 Pulse Oximetry 94 96 Oxygen Delivery Room Air Fraction of Inspired Oxygen 04/06/25 19:43 Temperature Pulse Rate 73 Respiratory Rate 20 Blood Pressure Pulse Oximetry 95 Oxygen Delivery Room Air Fraction of Inspired Oxygen 21 Intake/Output Intake/Output: Intake & Output 04/03/25 04/04/25 04/05/25 04/06/25 23:59 23:59 23:59 23:59 Intake Total 5030.4 3070 Output Total 500 1300 Balance 4530.4 1770 Meds/Results Medications: Active Medications Generic Name Dose Route Start Last Admin Trade Name Freq PRN Reason Stop Dose Admin Hydrocodone Bitart/Acetaminophen 1 tab 04/05/25 16:06 04/06/25 17:54 Hydrocodone/Acetaminophen (*Crx) 10-325 Mg Tablet PO 1 tab Q4H PRN Administration Pain Rated 7-10 Cyclobenzaprine HCl 10 mg 04/05/25 21:29 04/05/25 21:44 Cyclobenzaprine Hcl 10 Mg Tablet PO 10 mg HS PRN Administration Muscle Spasm Dextrose 12.5 gm 04/05/25 14:57 Dextrose 50% 25 Gm/50 Ml Syringe IV PUSH PRN PRN Hypoglycemia Protocol Diphenhydramine HCl 25 mg 04/05/25 21:34 04/06/25 08:31 Diphenhydramine Hcl Inj 50 Mg/Ml Vial IV PUSH 25 mg Q4H PRN Administration Itching Ferrous Sulfate 325 mg 04/06/25 09:00 04/06/25 08:29 Ferrous Sulfate 325 Mg Tablet PO 325 mg DAILY LEROY Administration Glucagon 1 mg 04/05/25 14:57 Glucagon For Inj 1 Mg Vial IM PRN PRN Hypoglycemia Protocol Glucose 15 gm 04/05/25 14:57 Glucose Oral Gel 15 Gm Of Glucse In 37.5 Gm Tube PO PRN PRN Hypoglycemia Protocol Sodium Chloride 1,000 mls @ 125 mls/hr 04/05/25 05:05 04/06/25 17:33 Normal Saline Iv IV CONT 125 mls/hr .Q8H LEROY Administration Dextrose 1,000 mls @ 100 mls/hr 04/05/25 14:57 Dextrose 5% 1,000 Ml IVPB PRN PRN Hypoglycemia Protocol Insulin Aspart 1 - 3 units 04/05/25 21:00 04/06/25 20:58 Insulin Aspart (*Bkc) 100 Units/Ml SUB-Q 1 units HS LEROY Administration Protocol Insulin Aspart 3 - 6 units 04/05/25 17:00 04/06/25 17:50 Insulin Aspart (*Bkc) 100 Units/Ml SUB-Q 4 units TIDWM LEROY Administration Protocol Levothyroxine Sodium 25 mcg 04/06/25 06:30 04/06/25 05:27 Levothyroxine Sodium 25 Mcg Tablet PO 25 mcg DAILY@0630 LEROY Administration Methylprednisolone Sodium Succinate 120 mg 04/06/25 18:00 04/06/25 17:35 Methylprednisolone Sod Succ 125 Mg Vial IV PUSH 120 mg Q6HR LEROY Administration Morphine Sulfate 4 mg 04/05/25 05:02 Morphine Sulfate (*Crx) 4 Mg/Ml Inj IV PUSH Q2H PRN Pain Rated 7-10 Radiology Results: ITS Impressions Renal Ultrasound 04/06/25 20:18 IMPRESSION: 1. Normal kidney sizes. No hydronephrosis. Labs Labs: Laboratory Results - last 24 hr 04/05/25 04/06/25 04/06/25 21:29 05:08 08:25 WBC 8.5 RBC 4.33 L Hgb 11.1 L Hct 37.1 L MCV 85.7 MCH 25.6 L MCHC 29.9 L RDW 15.3 H Plt Count 169 MPV 9.6 Immature Gran % (Auto) 0.7 H Neut % (Auto) 91.5 H Lymph % (Auto) 5.4 L [place] % (Auto) 2.0 L Eos % (Auto) 0.2 Baso % (Auto) 0.2 Lymph # (Auto) 0.46 L [place] # (Auto) 0.2 Eos # (Auto) 0.0 Baso # (Auto) 0.0 Abs Immat Gran (auto) 0.06 H Absolute Neuts (auto) 7.7 H Absolute Nucleated RBC 0.000 Nucleated RBC % 0.0 PT INR APTT Sodium 137 Potassium 3.9 Chloride 106 Carbon Dioxide 24 Anion Gap 7 BUN 30 H Creatinine 2.06 H Estim Creat Clear Calc 65 Estimated GFR 36 L Glucose 215 H POC Capillary Glucose 110 H 194 H Lactic Acid 1.0 Calcium 7.9 L Magnesium 2.1 Total Bilirubin 0.2 AST 18 ALT 14 Alkaline Phosphatase 62 Total Protein 6.9 Albumin 3.5 Urine Color Urine Appearance Urine pH Ur Specific [place] Urine Protein Urine Glucose (UA) Urine Ketones Ur Blood (Man) Urine Nitrate Urine Bilirubin Urine Urobilinogen Ur Leukocyte Esterase Urine RBC Urine WBC Ur Squamous Epith Cells Urine Bacteria Urine Casts Urine Eosinophils Ur Random Sodium Urine Creatinine Nasal MRSA (PCR) 04/06/25 04/06/25 04/06/25 11:25 11:26 17:23 WBC RBC Hgb Hct MCV MCH MCHC RDW Plt Count MPV Immature Gran % (Auto) Neut % (Auto) Lymph % (Auto) [place] % (Auto) Eos % (Auto) Baso % (Auto) Lymph # (Auto) [place] # (Auto) Eos # (Auto) Baso # (Auto) Abs Immat Gran (auto) Absolute Neuts (auto) Absolute Nucleated RBC Nucleated RBC % PT INR APTT Sodium Potassium Chloride Carbon Dioxide Anion Gap BUN Creatinine Estim Creat Clear Calc Estimated GFR Glucose POC Capillary Glucose 192 H 271 H Lactic Acid Calcium Magnesium Total Bilirubin AST ALT Alkaline Phosphatase Total Protein Albumin Urine Color Urine Appearance Urine pH Ur Specific [place] Urine Protein Urine Glucose (UA) Urine Ketones Ur Blood (Man) Urine Nitrate Urine Bilirubin Urine Urobilinogen Ur Leukocyte Esterase Urine RBC Urine WBC Ur Squamous Epith Cells Urine Bacteria Urine Casts Urine Eosinophils Ur Random Sodium Urine Creatinine Nasal MRSA (PCR) Not detected 04/06/25 04/06/25 17:24 17:35 WBC RBC Hgb Hct MCV MCH MCHC RDW Plt Count MPV Immature Gran % (Auto) Neut % (Auto) Lymph % (Auto) [place] % (Auto) Eos % (Auto) Baso % (Auto) Lymph # (Auto) [place] # (Auto) Eos # (Auto) Baso # (Auto) Abs Immat Gran (auto) Absolute Neuts (auto) Absolute Nucleated RBC Nucleated RBC % PT 14.3 INR 1.1 APTT 29.0 Sodium Potassium Chloride Carbon Dioxide Anion Gap BUN Creatinine Estim Creat Clear Calc Estimated GFR Glucose POC Capillary Glucose Lactic Acid Calcium Magnesium Total Bilirubin AST ALT Alkaline Phosphatase Total Protein Albumin Urine Color Yellow Urine Appearance Cloudy H Urine pH 5.0 Ur Specific [place] 1.020 Urine Protein 2+ H Urine Glucose (UA) 3+ H Urine Ketones Negative Ur Blood (Man) 3+ H Urine Nitrate Negative Urine Bilirubin Negative Urine Urobilinogen 0.2 Ur Leukocyte Esterase Trace H Urine RBC 11-20 H Urine WBC 0-5 Ur Squamous Epith Cells None seen Urine Bacteria None seen Urine Casts 3-5 Urine Eosinophils None seen Ur Random Sodium 69 Urine Creatinine 86.7 Nasal MRSA (PCR)
[2025-04-07] MEDS: HYDROcodone/acetaminophen (*CRX) 10-325 MG TABLET 1 TAB PO ×3 (00:22→10:59)
[2025-04-07] MEDS: LEVOTHYROXINE SODIUM 25 MCG TABLET PO (05:42)
[2025-04-07 06:10] VITALS: BP 136/60; PULSE 65; RESP 18; TEMP 36.2; O2SAT 96
[2025-04-07] MEDS: SODIUM CHLORIDE 0.9% IV 1,000 ML 125 ML IV CONT (06:55)
[2025-04-07 08:24] LABS: Hematocrit 35.3 % (42.0-52.0); Hemoglobin 11.0 g/dL (14.0-18.0); Immature Granulocyte Percent A 1.3 % (0-0.5); Lymphocytes Absolute Auto 0.77 K/mm3 (0.9-3.2); Mean Corpuscular HGB Conc 31.2 g/dl (32-36); Mean Corpuscular Hemoglobin 26.1 pg (26-34); Mean Corpuscular Volume 83.8 fl (80-100); Nucleated Red Blood Cells Absolute Auto 0.000 K/mm3 (0.0-0.012); Nucleated Red Blood Cells Perc 0.0 % (0.0-0.2); Platelet Count Result 194 k/mm3 (150-375); Red Blood Count 4.21 M/mm3 (4.6-6.20); White Blood Count 11.6 K/mm3 (4.5-10.0)
[2025-04-07 08:48] LABS: Alanine Aminotransferase 14 U/L (6-50); Albumin Level 3.4 g/dL (3.5-5.1); Alkaline Phosphatase 67 U/L (38-126); Anion Gap 7 mmol/L (4-12); Aspartate Amino Transferase 17 U/L (17-59); Bilirubin,Total 0.2 mg/dL (0.2-1.3); Blood Urea Nitrogen 35 mg/dL (9-20); CRP 2.8 mg/dL (<1.0); Calcium 8.1 mg/dL (8.4-10.2); Carbon Dioxide 25 mmol/L (22-30); Chloride 105 mmol/L (98-107); Estimated CRCL calculation 76 ml/min; Estimated Glomerular Filt Rate 43; Glucose 306 mg/dL (65-110); Magnesium 2.2 mg/dL (1.6-2.3); Potassium 3.7 mmol/L (3.4-5.0); Sodium 137 mmol/L (137-145); Total Protein 6.8 g/dL (6.3-8.2)
[2025-04-07 08:53] LABS: Procalcitonin 0.1 ng/mL
[2025-04-07] MEDS: INSULIN ASPART (*BKC) 100 UNITS/ML SUB-Q ×5 (09:04→23:09)
[2025-04-07] MEDS: FERROUS SULFATE 325 MG TABLET PO (09:05)
[2025-04-07 09:26] LABS: HIV 1/2 Ab P24 Ag Result Negative (Negative)
--- NOTE | 2025-04-07 10:20 | S_PTH ---
PATIENT: Zheng Carrizales LOC: [id number] U#:[id number] AGE/SX: 40/M ROOM: 345 RE04/07/[address]: Grace Costa MD : [id number] BED: 01 DIS: 04/11/2025 SPEC #: [id number] RECD: 04/08/25 06:51 STATUS: DYLAN REQ #: [id number] TOO: 04/07/25 10:[address]: Renetta Linder DEPT: [facility] Surgical RECD BY: Mary Ann Carlton ENTERED: 04/08/25 06:51 SP TYPE: Surgical OTHR DR: DO Laura James MD Jeffrey M. Lisowski, MD Bhavesh Patel, MD Eliezer Wolfe MD Tissues: A - Skin Bx Procedures: Hematoxylin and Eosin Stain Gross and Microscopic Level 4
--- NOTE | 2025-04-07 12:07 | WPDINFPN2 ---
Progress Note: A&P Assessment and Plan (1) Lower extremity cellulitis: Code(s): L03.119 - Cellulitis of unspecified part of limb Status: Acute (2) Wound of foot: Code(s): S91.309A - Unspecified open wound, unspecified foot, initial encounter Status: Acute (3) Morbid obesity with body mass index (BMI) greater than or equal to 50: Code(s): E66.01 - Morbid (severe) obesity due to excess calories Status: Acute (4) Drug-induced maculopapular rash: Code(s): L27.0 - Generalized skin eruption due to drugs and medicaments taken internally Status: Acute Plan # Bilateral lower extremity lesions related to recent flea infestation exposure and subsequent excoriation wounds. -- lesions may represent inflammation from original flea bites with additional self-inflicted scratch excoriation. Risk of secondary infection but overall not classic for extensive cellulitis. -- rule out vasculitis. -- however, he did present with some degree of leukocytosis which has improved on antibiotics. Antibiotics have since been discontinued. # Obesity with bilateral lower extremity acute on chronic edema and early stasis dermatitis. # Acute maculopapular reaction to upper extremity and torso suggestive of drug reaction. Suspect cefepime. Plan: -- follow off of antibiotics. -- await lower extremity skin lesion biopsy. -- avoid cephalosporins. Avoid Betadine . -- discussed with Dr. De Leon. Patient was seen via video telehealth consultation with the assistance of staff. Chart, data, and patient independently reviewed. Patient was located at [facility] while I was located in my [place] office. Received verbal consent from patient. Subjective Date/time seen: 04/07/25 12:07 Interval history: 04/07/2025: Remains afebrile with white blood cell count 11.6 WBC slightly elevated while on methylprednisolone. Vancomycin discontinued. Status post surgical biopsy of lower extremity lesions. Review of Systems Review of Systems: All systems reviewed & are unremarkable except as noted in HPI and below Exam Narrative: He is awake and alert nontoxic. Obesity. Directed exam significant for bilateral lower extremity acute on chronic edema. Has evidence of patchy primarily pretibial hyper pigmentation suggestive of chronic stasis dermatitis. Areas of bilateral thighs, further lower extremity, and feet with annular wounds and some with dried blood. Patchy surrounding erythema. Skin also with bilateral upper extremity maculopapular eruption. Also seen to less degree on torso. Status post lower extremity skin lesion biopsies. Objective Data Vital Signs Vital Signs: Vital Signs - 24 hr 04/06/25 14:00 04/06/25 19:43 04/06/25 20:00 Temperature 97.6 F Pulse Rate 69 73 Respiratory Rate 16 20 Blood Pressure 124/65 Pulse Oximetry 96 95 Oxygen Delivery Room Air Room Air Fraction of Inspired Oxygen 21 04/06/25 22:00 04/07/25 06:10 04/07/25 09:09 Temperature 98.5 F 97.1 F L Pulse Rate 75 65 Respiratory Rate 18 18 Blood Pressure 116/58 L 136/60 Pulse Oximetry 96 96 Oxygen Delivery Room Air Fraction of Inspired Oxygen Intake/Output Intake/Output: Intake & Output 04/04/25 04/05/25 04/06/25 04/07/25 23:59 23:59 23:59 23:59 Intake Total 5030.4 3070 1840 Output Total 500 1300 Balance 4530.4 1770 1840 Meds/Results Medications: Active Medications Generic Name Dose Route Start Last Admin Trade Name Freq PRN Reason Stop Dose Admin Hydrocodone Bitart/Acetaminophen 1 tab 04/05/25 16:06 04/07/25 10:59 Hydrocodone/Acetaminophen (*Crx) 10-325 Mg Tablet PO 1 tab Q4H PRN Administration Pain Rated 7-10 Cyclobenzaprine HCl 10 mg 04/05/25 21:29 04/05/25 21:44 Cyclobenzaprine Hcl 10 Mg Tablet PO 10 mg HS PRN Administration Muscle Spasm Dextrose 12.5 gm 04/05/25 14:57 Dextrose 50% 25 Gm/50 Ml Syringe IV PUSH PRN PRN Hypoglycemia Protocol Diphenhydramine HCl 25 mg 04/05/25 21:34 04/07/25 00:22 Diphenhydramine Hcl Inj 50 Mg/Ml Vial IV PUSH 25 mg Q4H PRN Administration Itching Ferrous Sulfate 325 mg 04/06/25 09:00 04/07/25 09:05 Ferrous Sulfate 325 Mg Tablet PO 325 mg DAILY LEROY Administration Glucagon 1 mg 04/05/25 14:57 Glucagon For Inj 1 Mg Vial IM PRN PRN Hypoglycemia Protocol Glucose 15 gm 04/05/25 14:57 Glucose Oral Gel 15 Gm Of Glucse In 37.5 Gm Tube PO PRN PRN Hypoglycemia Protocol Sodium Chloride 1,000 mls @ 125 mls/hr 04/05/25 05:05 04/07/25 09:07 Normal Saline Iv IV CONT Not Given .Q8H LEROY Dextrose 1,000 mls @ 100 mls/hr 04/05/25 14:57 Dextrose 5% 1,000 Ml IVPB PRN PRN Hypoglycemia Protocol Insulin Aspart 1 - 3 units 04/05/25 21:00 04/06/25 20:58 Insulin Aspart (*Bkc) 100 Units/Ml SUB-Q 1 units HS LEROY Administration Protocol Insulin Aspart 3 - 6 units 04/05/25 17:00 04/07/25 09:04 Insulin Aspart (*Bkc) 100 Units/Ml SUB-Q 4 units TIDWM LEROY Administration Protocol Levothyroxine Sodium 25 mcg 04/06/25 06:30 04/07/25 05:42 Levothyroxine Sodium 25 Mcg Tablet PO 25 mcg DAILY@0630 LEROY Administration Methylprednisolone Sodium Succinate 120 mg 04/06/25 18:00 04/07/25 05:42 Methylprednisolone Sod Succ 125 Mg Vial IV PUSH 120 mg Q6HR LEROY Administration Morphine Sulfate 4 mg 04/05/25 05:02 Morphine Sulfate (*Crx) 4 Mg/Ml Inj IV PUSH Q2H PRN Pain Rated 7-10 Radiology Results: ITS Impressions Renal Ultrasound 04/06/25 20:18 IMPRESSION: 1. Normal kidney sizes. No hydronephrosis. Labs Labs: Laboratory Results - last 24 hr 04/06/25 04/06/25 04/06/25 11:25 17:23 17:24 WBC RBC Hgb Hct MCV MCH MCHC RDW Plt Count MPV Immature Gran % (Auto) Neut % (Auto) Lymph % (Auto) [place] % (Auto) Eos % (Auto) Baso % (Auto) Lymph # (Auto) [place] # (Auto) Eos # (Auto) Baso # (Auto) Abs Immat Gran (auto) Absolute Neuts (auto) Absolute Nucleated RBC Nucleated RBC % ESR PT 14.3 INR 1.1 APTT 29.0 Sodium Potassium Chloride Carbon Dioxide Anion Gap BUN Creatinine Estim Creat Clear Calc Estimated GFR Glucose POC Capillary Glucose 271 H Calcium Magnesium Total Bilirubin AST ALT Alkaline Phosphatase C-Reactive Protein Total Protein Albumin Procalcitonin Urine Color Urine Appearance Urine pH Ur Specific [place] Urine Protein Urine Glucose (UA) Urine Ketones Ur Blood (Man) Urine Nitrate Urine Bilirubin Urine Urobilinogen Ur Leukocyte Esterase Urine RBC Urine WBC Ur Squamous Epith Cells Urine Bacteria Urine Casts Urine Eosinophils Ur Random Sodium Urine Creatinine Nasal MRSA (PCR) Not detected HIV 1&2 Ab/P24 Ag 4thGn 04/06/25 04/06/25 04/07/25 17:35 20:45 08:17 WBC 11.6 H RBC 4.21 L Hgb 11.0 L Hct 35.3 L MCV 83.8 MCH 26.1 MCHC 31.2 L RDW 15.3 H Plt Count 194 MPV 9.9 Immature Gran % (Auto) 1.3 H Neut % (Auto) 90.4 H Lymph % (Auto) 6.6 L [place] % (Auto) 1.6 L Eos % (Auto) 0.0 Baso % (Auto) 0.1 L Lymph # (Auto) 0.77 L [place] # (Auto) 0.2 Eos # (Auto) 0.0 Baso # (Auto) 0.0 Abs Immat Gran (auto) 0.15 H Absolute Neuts (auto) 10.5 H Absolute Nucleated RBC 0.000 Nucleated RBC % 0.0 ESR 58 H PT INR APTT Sodium 137 Potassium 3.7 Chloride 105 Carbon Dioxide 25 Anion Gap 7 BUN 35 H Creatinine 1.76 H Estim Creat Clear Calc 76 Estimated GFR 43 L Glucose 306 H POC Capillary Glucose 284 H Calcium 8.1 L Magnesium 2.2 Total Bilirubin 0.2 AST 17 ALT 14 Alkaline Phosphatase 67 C-Reactive Protein 2.8 H Total Protein 6.8 Albumin 3.4 L Procalcitonin Urine Color Yellow Urine Appearance Cloudy H Urine pH 5.0 Ur Specific [place] 1.020 Urine Protein 2+ H Urine Glucose (UA) 3+ H Urine Ketones Negative Ur Blood (Man) 3+ H Urine Nitrate Negative Urine Bilirubin Negative Urine Urobilinogen 0.2 Ur Leukocyte Esterase Trace H Urine RBC 11-20 H Urine WBC 0-5 Ur Squamous Epith Cells None seen Urine Bacteria None seen Urine Casts 3-5 Urine Eosinophils None seen Ur Random Sodium 69 Urine Creatinine 86.7 Nasal MRSA (PCR) HIV 1&2 Ab/P24 Ag 4thGn 04/07/25 04/07/25 08:18 08:28 WBC RBC Hgb Hct MCV MCH MCHC RDW Plt Count MPV Immature Gran % (Auto) Neut % (Auto) Lymph % (Auto) [place] % (Auto) Eos % (Auto) Baso % (Auto) Lymph # (Auto) [place] # (Auto) Eos # (Auto) Baso # (Auto) Abs Immat Gran (auto) Absolute Neuts (auto) Absolute Nucleated RBC Nucleated RBC % ESR PT INR APTT Sodium Potassium Chloride Carbon Dioxide Anion Gap BUN Creatinine Estim Creat Clear Calc Estimated GFR Glucose POC Capillary Glucose 298 H Calcium Magnesium Total Bilirubin AST ALT Alkaline Phosphatase C-Reactive Protein Total Protein Albumin Procalcitonin 0.1 Urine Color Urine Appearance Urine pH Ur Specific [place] Urine Protein Urine Glucose (UA) Urine Ketones Ur Blood (Man) Urine Nitrate Urine Bilirubin Urine Urobilinogen Ur Leukocyte Esterase Urine RBC Urine WBC Ur Squamous Epith Cells Urine Bacteria Urine Casts Urine Eosinophils Ur Random Sodium Urine Creatinine Nasal MRSA (PCR) HIV 1&2 Ab/P24 Ag 4thGn Negative
[2025-04-07] MEDS: MORPHINE SULFATE (*CRX) 4 MG/ML INJ IV PUSH ×2 (12:29→17:14)
--- NOTE | 2025-04-07 12:45 | P.CONNP_ITS ---
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 * other(?) * evaluation to date noted: * renal ultrasound normal * urine eosinophils negative * urine electrolytes suggest prerenal azotemia * UA with blood and protein * serological evaluation pending * CPK low * renal function improving with current interventions * follow trend of repeat labs and UOP (2) Lower extremity cellulitis: Code(s): L03.119 - Cellulitis of unspecified part of limb Status: Acute Assessment and Plan: * suggestive by admission exam * local wound care * antibiotics * Infectious Disease following (3) Wound of foot: Code(s): S91.309A - Unspecified open wound, unspecified foot, initial encounter Status: Acute Assessment and Plan: * possible complication of #2 (?) * wound care following * Surgery consulted for biopsy (due to concerns about possible vasculitis) * continue supportive therapy (4) Rash: Code(s): R21 - Rash and other nonspecific skin eruption Status: Acute Assessment and Plan: * drug reaction versus vasculitits (?) * clinical appearance favors drug related/induced * on steroids * follow clinical appearance I will continue to follow the patient with you while he remains hospitalized and make further recommendations as deemed necessary. Thank you for allowing me to participate in the care of this patient. L History of Present Illness Reason for Consult Consult date: 04/07/25 Reason for consult: acute renal failure Chief Complaint Chief complaint: NSAID induced LEONEL diabetic foot wounds History of Present Illness Narrative: The patient is a 40-year-old male with a past medical history as outlined below who presented to [facility] Emergency Room complaints severe bilateral lower extremity pain wounds/ulcerations and associated redness/erythema. Apparently, approximately 2 weeks ago, the patient noticed that he had a rash in his lower extremities. Initially, he thought it was perhaps some flea bites that would resolve on their own but they continued to spread and get worse. In association with a worsening rash was significant pain and discomfort to any type of palpation. The rash then progressed to what appeared to be ulcerations and necrotic lesions and continued to spread up until it went under his pannus. He attempted topical medications that were given to him by his wound care physician but this did not really seem to help the problem. He gave no history of nausea, vomiting, abdominal pain, diarrhea, chest pain, shortness of breath, dizziness, lightheadedness, or palpitations. Eventually, due to the progressive worsening of these wounds in association with severe / significant pain, he presented to the ER for further assessment. Workup and evaluation emergency room demonstrated the patient be hemodynamically stable and afebrile but in significant pain with the skin lesions in his lower extremities. Routine blood work noted a white blood cell count of 8.6, hemoglobin 11.2, hematocrit 36.6, platelet count of 191, sodium 138 potassium 2.9, bicarb 28, BUN 37, creatinine 2.15, glucose 184, CPK 44, C-reactive protein 4.7, albumin 3.4, calcium 7.8, normal LFTs, and hemoglobin A1c of 5.8. X-rays of his bilateral feet demonstrated no evidence of osteomyelitis. Given the concerns of sepsis given his appearance of his lower extremities in conjunction with his acute kidney injury/acute renal failure, he was initiated on IV fluids and started on IV antibiotics after appropriate cultures were obtained. He was subsequently admitted to the hospital for further evaluation therapy. Since his admission, there has been some concern that his rash and skin manifestations could be a manifestation of early vasculitis. On further questioning he denied any issues with nasal hemorrhage, hemoptysis, hematemesis, or any other previous dermatological issues. Serological testing has been ordered and he was initiated on IV steroids for this presumed diagnosis. He has already been seen by surgery who performed a punch biopsy of 1 of the skin lesions on his lower extremities for further assessment. Renal consultation was requested due to his acute kidney injury/ acute renal failure. As already mentioned above, his creatinine was 2.15 mg/dL on presentation but it appears to have slowly improved down to 1.76 mg/dL over last 48 hours with just supportive therapy. Given the concern for possible vasculitis there was also the possibility that he may have a vasculitis within his kidneys as well. However, given the fact that his renal function has improved with just supportive therapy prior to any initiation of IV steroids would make this seem less likely. upon further questioning of the patient, he did admit to high-dose NSAID therapy for the past 3 or 4 days prior to his presentation to the emergency room in effort to treat his severe pain/discomfort in his lower extremities. In spite of his renal dysfunction, he has no critical electrolyte abnormalities, metabolic acidosis, or evidence of uremia although he does have some issues with lower extremity swelling /edema but this is likely in the context of his significant wounds. Currently, at the time my evaluation, he appears to be in no acute distress. Review of Systems 2 Review of Systems: As per HPI. 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 He denies alcohol or drug use. Lives at home with his 2 sons. He is . Children currently staying with his ex-. Patient is a full code. He nominates his ex- Karla be the individual would make medical decisions for him if he is unable. Smoking packs per day: 1 Smoking cigarettes per day: 20.0 Years smoked: 20 Smoking pack-years: 20.00 Smoking status: Former smoker Tobacco type: cigarettes Second hand tobacco smoke exposure: Yes Smoking end date: 04/05/17 Alcohol intake: never Drinks per week: 0 Substance use: never Lack of Transportation: No Lack of Food: Never True Current Housing: I Have Housing Concerned About Future Housing: No Difficulty Paying Gas/Electric Bills: No Difficulty Paying for Meds: No Currently Unemployed: No Education: Bachelor's Degree Difficulty w/ Childcare or Family Care: No Gender identity (if verbalized by the patient): Male Spiritual care concerns: No Agree to blood products: Yes Meds Home Medications and Allergies Home Medications ?Medication ?Instructions ?Recorded ?Confirmed ?Type cyclobenzaprine 5 mg tablet 10 mg PO HS PRN muscle spa sm 05/24/23 04/05/25 History ergocalciferol (vitamin D2) 50,000 50,000 unit PO WEEK LY 05/24/23 04/05/25 History unit tablet levocetirizine 5 mg tablet 5 mg PO DAILY 05/24/2303/21 History (Allergy Relief (levocetirizine)) ferrous sulfate 325 mg (65 mg 325 mg PO DAILY 04/05/25 04/05/25 History iron) tablet (FeroSul) levothyroxine 25 mcg tablet 25 mcg PO DAILY@0630 04/0504/05/25 History testosterone cypionate 200 mg/mL 200 mg IM .biweekly 0 04/05/25 04/05/25 History intramuscular oil amlodipine 5 mg tablet 5 mg PO DAILY 30 days #30 ta bs 04/11/25 Rx doxycycline hyclate 100 mg 100 mg PO BID 5 days #10 ta bs 04/11/25 Rx tablet,delayed release oxycodone 5 mg tablet 5 mg PO Q8H PRN pain 5 days #5 tabs 04/11/25 Rx prednisone 50 mg tablet 50 mg PO DAILY 1 day #1 tabl et 04/11/25 Rx Allergies Allergy/AdvReac Type Severity Reaction Status Date / Time cefepime Allergy Intermediate Rash Verified 04/06/25 10:52 peanut Allergy Unknown Itching Verified 04/05/25 02:55 Vital Signs Vital Signs Temp Pulse Resp BP Pulse Ox O2 Del Method FiO2 04/07/25 11:57 97.6 F 72 18 137/71 100 04/07/25 09:09 Room Air 04/07/25 06:10 97.1 F L 65 18 136/60 96 04/06/25 22:00 98.5 F 75 18 116/58 L 96 04/06/25 20:00 Room Air 04/06/25 19:43 73 20 95 Room Air 21 Exam 2 Narrative: GENERAL APPEARANCE: well developed well nourished male in no acute distress HEENT: normocephalic, atraumatic, normal conjunctiva and sclera, nares patient NECK: no lymphadenopathy, thyromegaly, or JVD MOUTH: normal lips, teeth, and gums CARDIOVASCULAR: RRR, normal S1 and S2, no rub RESPIRATORY: clear anteriorly ABDOMEN: soft, nontender, nondistended, positive bowel sounds present EXTREMITIES: no evidence of cyanosis, clubbing, 1+ edema NEUROLOGICAL: alert and oriented x 3; CN II - XII intact bilaterally; no focal deficits noted SKIN: BUEs and torso with maculopapular rash; petechial rash on BLEs/feet; dressings in place Results Lab Results 04/11/25 05:26 04/11/25 05:26 Lab results: Most recent lab results Calcium 8.1 mg/dL (8.4-10.2) L 04/07/25 08:17 Magnesium 2.2 mg/dL (1.6-2.3) 04/07/25 08:17 Urine Creatinine 86.7 mg/dL 04/06/25 17:35
--- NOTE | 2025-04-07 13:36 | PC.NURSE ---
1332: RN spoke with pathology in regards to specimen. They need an order for the specimen in order to send it off. 1334: RN called [facility] - line to reach Marie or Lynette Mijares as they were both at bedside during patient's biopsy. RN spoke with bilingual receptionist. RN was asked if she could put pathology order in. RN explained she does not know how and that either Marie or Lynette Mijares will have to put in their own orders for pathology specimen. [employer] Admin stated one of them will take a look at it and put in the order.
--- NOTE | 2025-04-07 13:51 | P.CONGS_ITS ---
Assessment and Plan Assessment and plan (1) Wound of foot: Code(s): S91.309A - Unspecified open wound, unspecified foot, initial encounter Status: Acute Assessment and Plan: Patient presented with petechial and hemorrhagic rash to bilateral lower extremities that began as what were thought to be flea/bug bites that he acquired on a camping trip. He was previously being seen at a wound clinic for unrelated bilateral lower extremity wounds that started as bug bites. Whe nhe was at an appointment last week, he was prescribed Betadine to apply to the area in between his 1st and 2nd toe on his left foot that seem to be worsening. Patient states that after applying Betadine is when he notices the ulcerations to become more blistered, red, and painful. The ulcers on the dorsal aspects of his toes became open wounds with crusted covering. Patient was admitted to the hospitalist team who consulted general surgery to perform biopsy. * Punch biopsy performed this morning to two areas on the dorsal left foot. patient tolerated well. Two 4-0 Nylon sutures placed for hemostasis. These will need to be removed in 7-10 days. * General surgery team will sign off at this time. Please call if any bleeding, increased pain to the biopsied areas, or signs of infection arise. * Continue treatment per hospitalist and infectious disease recommendations. (2) LEONEL (acute kidney injury): Code(s): N17.9 - Acute kidney failure, unspecified Status: Acute Assessment and Plan: According to ED note, patient took an excess amount of ibuprofen. Nephrology consulted. (3) Morbid obesity with body mass index (BMI) greater than or equal to 50: Code(s): E66.01 - Morbid (severe) obesity due to excess calories Status: Acute Plan Discussed patient's case and plan of care with Dr. Wolfe. History of Present Illness Consult details Consult date: 04/07/25 Reason for consult: other (petechial rash, hemorrhagic blisters, request biopsy) Requesting physician: Yaquelin De Leon MD Narrative: Patient is a 40 year old male with history of hypertension, steroid induced diabetes mellitus, autoimmune hemolytic anemia, and afib with RVR (Aug 2019), not currently on blood thinners, who we have been asked to see for a punch biopsy for a petechial rash with hemorrhagic blisters. Patient states that a few weeks ago he went camping and noticed what seemed to be bug bites to his bilateral toes. There was particular area in between his first and second toes on his left foot that was particularly irritating to him. He was following up with a wound care clinic for unrelated chronic wounds to his lower extremities. They had prescribed betadine to apply to the area. He stated that after he had applied the betadine he started to notice more blisters over the dorsal aspect of his feet and tracking up his lower legs. They became very painful. The blisters to the dorsal aspects of his toes opened up. Upon presentation to the ED, patient was afebrile and hemodynamically stable. Xrays of the bilateral feet were obtained and did not demonstrate any osteomyelitis or other acute abnormalities. Normal WBC count. Lab work revealed and LEONEL with creatinine of 2.15 and BUN of 37. Lactic acidosis at 2.2. Per ED note, patient had been taking as much as 5000 mg of ibuprofen daily for the past few days. Likely cause of LEONEL. Patient was started on vanc, cefepime, and flagyl. Infectious disease was consulted yessterday. The status of the lesions may represent inflammation from her original sleep pt with additional self-inflicted scratches excoriation. Risk of secondary infection but overall not classic for extensive cellulitis. Id discontinued both cefepime and Flagyl. Vancomycin continued. Hospitalist yesterday felt that these lesions moreso resembled vasculitis with the petechial hemorrhage and tenderness to palpation and requested a biopsy. Thus, general surgery team was consulted. Wound care team also assess this patient and agreed to continue daily cleansing, topical silver gel and dry dressings to promote healing. WBC did go up to 11.6 today, from a 0.5 yesterday. BUN and creatinine still elevated at 35 and 1.76, respectively. Renal ultrasound demonstrated normal kidney sizes, no hydronephrosis. CRP 2.8 today. Autoimmune antibody screenings still pending. 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 He denies alcohol or drug use. Lives at home with his 2 sons. He is . Children currently staying with his ex-. Patient is a full code. He nominates his ex- Karla be the individual would make medical decisions for him if he is unable. Smoking packs per day: 1 Smoking cigarettes per day: 20.0 Years smoked: 20 Smoking pack-years: 20.00 Smoking status: Former smoker Tobacco type: cigarettes Second hand tobacco smoke exposure: Yes Smoking end date: 04/05/17 Alcohol intake: never Drinks per week: 0 Substance use: never Lack of Transportation: No Lack of Food: Never True Current Housing: I Have Housing Concerned About Future Housing: No Difficulty Paying Gas/Electric Bills: No Difficulty Paying for Meds: No Currently Unemployed: No Education: Bachelor's Degree Difficulty w/ Childcare or Family Care: No Gender identity (if verbalized by the patient): Male Spiritual care concerns: No Agree to blood products: Yes Meds Home Medications and Allergies Home Medications ?Medication ?Instructions ?Recorded ?Confirmed ?Type cyclobenzaprine 5 mg tablet 10 mg PO HS PRN muscle spa sm 05/24/23 04/05/25 History ergocalciferol (vitamin D2) 50,000 50,000 unit PO WEEK LY 05/24/23 04/05/25 History unit tablet levocetirizine 5 mg tablet 5 mg PO DAILY 05/24/2303/21 History (Allergy Relief (levocetirizine)) chlorthalidone 25 mg tablet 25 mg PO DAILY 04/05/25 History ferrous sulfate 325 mg (65 mg 325 mg PO DAILY 04/05/25 04/05/25 History iron) tablet (FeroSul) levothyroxine 25 mcg tablet 25 mcg PO DAILY@0630 04/0504/05/25 History losartan 25 mg tablet 25 mg PO BID 04/05/25 History testosterone cypionate 200 mg/mL 200 mg IM .biweekly 0 04/05/25 04/05/25 History intramuscular oil Allergies Allergy/AdvReac Type Severity Reaction Status Date / Time cefepime Allergy Intermediate Rash Verified 04/06/25 10:52 peanut Allergy Unknown Itching Verified 04/05/25 02:55 Vital Signs Vital Signs - 24 hr 04/06/25 14:00 04/06/25 19:43 04/06/25 20:00 Temperature 97.6 F Pulse Rate 69 73 Respiratory Rate 16 20 Blood Pressure 124/65 Pulse Oximetry 96 95 Oxygen Delivery Room Air Room Air Fraction of Inspired Oxygen 21 04/06/25 22:00 04/07/25 06:10 04/07/25 09:09 Temperature 98.5 F 97.1 F L Pulse Rate 75 65 Respiratory Rate 18 18 Blood Pressure 116/58 L 136/60 Pulse Oximetry 96 96 Oxygen Delivery Room Air Fraction of Inspired Oxygen Exam 2 Const: General: comfortable and no acute distress Eyes: General: appearance normal, both eyes and all related structures Neck: Neck: supple Resp: Effort & Inspection: normal respiratory effort Cardio: Rate: regular rate Skin: Other: Petechial rash noted to bilateral lower extremities. Open wounds with skin sloughing and uneven crust like covering to dorsal aspect of toes, worse on left foot. No purulent exudate present. Patient does have dry scabs to bilateral legs. He states that these are unrelated and started as a bug bites. He follows with outside wound care clinic for these. Neuro: Speech: normal speech Sensory Exam: normal sensation Psych: Mental Status: mental status grossly normal Results Labs 04/07/25 08:17 04/07/25 08:17 Labs: Abnormal lab results 04/06/25 04/06/25 04/06/25 Range/Units 17:23 17:35 20:45 WBC (4.5-10.0) K/mm3 RBC (4.6-6.20) M/mm3 Hgb (14.0-18.0) g/dL Hct (42.0-52.0) % MCHC (32-36) g/dl RDW (11.5-14.5) % Immature Gran % (Auto) (0-0.5) % Neut % (Auto) (45.5-73.1) % Lymph % (Auto) (18.3-44.2) % King % (Auto) (2.6-8.5) % Baso % (Auto) (0.2-1.2) % Lymph # (Auto) (0.9-3.2) K/mm3 Abs Immat Gran (auto) (0.00-0.031) K/mm3 Absolute Neuts (auto) (1.3-6.7) K/mm3 ESR (0-20) mm/hr BUN (9-20) mg/dL Creatinine (0.7-1.3) mg/dL Estimated GFR (59 - ) Glucose (65-110) mg/dL POC Capillary Glucose 271 H 284 H (65-105) mg/dl Calcium (8.4-10.2) mg/dL C-Reactive Protein (<1.0) mg/dL Albumin (3.5-5.1) g/dL Urine Appearance Cloudy H (Clear) Urine Protein 2+ H (Negative) mg/dL Urine Glucose (UA) 3+ H (Negative) mg/dL Ur Blood (Man) 3+ H (Negative) Ur Leukocyte Esterase Trace H (Negative) MESSI/UL Urine RBC 11-20 H (0-2) /hpf 04/07/25 04/07/25 04/07/25 Range/Units 08:17 08:28 12:27 WBC 11.6 H (4.5-10.0) K/mm3 RBC 4.21 L (4.6-6.20) M/mm3 Hgb 11.0 L (14.0-18.0) g/dL Hct 35.3 L (42.0-52.0) % MCHC 31.2 L (32-36) g/dl RDW 15.3 H (11.5-14.5) % Immature Gran % (Auto) 1.3 H (0-0.5) % Neut % (Auto) 90.4 H (45.5-73.1) % Lymph % (Auto) 6.6 L (18.3-44.2) % King % (Auto) 1.6 L (2.6-8.5) % Baso % (Auto) 0.1 L (0.2-1.2) % Lymph # (Auto) 0.77 L (0.9-3.2) K/mm3 Abs Immat Gran (auto) 0.15 H (0.00-0.031) K/mm3 Absolute Neuts (auto) 10.5 H (1.3-6.7) K/mm3 ESR 58 H (0-20) mm/hr BUN 35 H (9-20) mg/dL Creatinine 1.76 H (0.7-1.3) mg/dL Estimated GFR 43 L (59 - ) Glucose 306 H (65-110) mg/dL POC Capillary Glucose 298 H 332 H (65-105) mg/dl Calcium 8.1 L (8.4-10.2) mg/dL C-Reactive Protein 2.8 H (<1.0) mg/dL Albumin 3.4 L (3.5-5.1) g/dL Urine Appearance (Clear) Urine Protein (Negative) mg/dL Urine Glucose (UA) (Negative) mg/dL Ur Blood (Man) (Negative) Ur Leukocyte Esterase (Negative) MESSI/UL Urine RBC (0-2) /hpf Diabetes panel 04/07/25 Range/Units 08:17 Sodium 137 (137-145) mmol/L Potassium 3.7 (3.4-5.0) mmol/L Chloride 105 (98-107) mmol/L Carbon Dioxide 25 (22-30) mmol/L BUN 35 H (9-20) mg/dL Creatinine 1.76 H (0.7-1.3) mg/dL Glucose 306 H (65-110) mg/dL Calcium 8.1 L (8.4-10.2) mg/dL AST 17 (17-59) U/L ALT 14 (6-50) U/L Alkaline Phosphatase 67 (38-126) U/L Total Protein 6.8 (6.3-8.2) g/dL Albumin 3.4 L (3.5-5.1) g/dL Calcium panel 04/07/25 Range/Units 08:17 Calcium 8.1 L (8.4-10.2) mg/dL Albumin 3.4 L (3.5-5.1) g/dL Pituitary panel 04/07/25 Range/Units 08:17 Sodium 137 (137-145) mmol/L Potassium 3.7 (3.4-5.0) mmol/L Chloride 105 (98-107) mmol/L Carbon Dioxide 25 (22-30) mmol/L BUN 35 H (9-20) mg/dL Creatinine 1.76 H (0.7-1.3) mg/dL Glucose 306 H (65-110) mg/dL Calcium 8.1 L (8.4-10.2) mg/dL Adrenal panel 04/07/25 Range/Units 08:17 Sodium 137 (137-145) mmol/L Potassium 3.7 (3.4-5.0) mmol/L Chloride 105 (98-107) mmol/L Carbon Dioxide 25 (22-30) mmol/L BUN 35 H (9-20) mg/dL Creatinine 1.76 H (0.7-1.3) mg/dL Glucose 306 H (65-110) mg/dL Calcium 8.1 L (8.4-10.2) mg/dL Total Bilirubin 0.2 (0.2-1.3) mg/dL AST 17 (17-59) U/L ALT 14 (6-50) U/L Alkaline Phosphatase 67 (38-126) U/L Total Protein 6.8 (6.3-8.2) g/dL Albumin 3.4 L (3.5-5.1) g/dL All other labs normal.
[2025-04-07] MEDS: SODIUM CHLORIDE 0.9% IV 1,000 ML 83 ML IV CONT (14:55)
[2025-04-07 14:57] VITALS: BP 137/71; PULSE 72; RESP 18; TEMP 36.4; O2SAT 100
--- NOTE | 2025-04-07 14:59 | W.PM.PROC2 ---
Procedure Note - Detailed Date of Procedure 04/07/25 Pre-op Diagnosis NSAID induced LEONEL diabetic foot wounds Post-op Diagnosis Same Procedure Performed punch biopsy to skin of dorsal aspect of left foot Surgeon Lynette Brooke PA-C [employer] Renetta Linder NP Anesthesia Local Indications Patient presented with petechial and hemorrhagic rash to bilateral lower extremities that began as what were thought to be flea/bug bites that he acquired on a camping trip. He was previously being seen at a wound clinic for unrelated bilateral lower extremity wounds that started as bug bites. When he was at an appointment last week, he was prescribed Betadine to apply to the area in between his 1st and 2nd toe on his left foot that seem to be worsening. Patient states that after applying Betadine is when he notices the ulcerations to become more blistered, red, and painful. The ulcers on the dorsal aspects of his toes became open wounds with crusted covering. Patient was admitted to the hospitalist team who consulted general surgery to perform biopsy. Description of Procedure Patient was placed in supine position with head of bed elevated. Both feet were exposed. The dorsal aspect of the left foot was prepped with alcohol prep pads. Local anesthesia was achieved with 1% lidocaine injected intradermally and subcutaneously at the biopsy sites. Once the area was adequately anesthetized, a 4 mm disposable punch biopsy instrument was used to obtain a section of tissue that contained both lesional skin and adjacent normal skin. Gentle pressure and rotational motion was used to get down to the level of the subcutaneous tissue and extract a cylindrical core specimen. The specimen was placed in formalin and sent to pathology lab. This same procedure was repeated in an area a few centimeters away from initial punch biopsy of the foot. Pressure was applied to the wounds and silver nitrate sticks were used to establish hemostasis. A single 4-0 Nylon suture was placed in each of the two wounds. The patient was instructed to keep the area clean and dry and to avoid showering until tomorrow. The sutures should be removed in 7-10 days. Patient tolerated the procedure well. Estimated Blood Loss 3 Urine Output 500 Drains No Packing No Pathology Yes Complications No immediate complications Condition Stable Disposition Floor [facility] Billing Surgery - Charge Forward: Surgery Billing
[2025-04-07 20:00] VITALS: PULSE 60; RESP 18; O2SAT 99
--- NOTE | 2025-04-07 21:18 | P.PNIM_ITS ---
Progress Note: A&P Assessment and Plan (1) Petechiae: Code(s): R23.3 - Spontaneous ecchymoses Status: Acute (2) LEONEL (acute kidney injury): Code(s): N17.9 - Acute kidney failure, unspecified Status: Acute Plan biopsy done today. i discussed with surgery team, discussed patients care with nursing staff, and the pt himself. he is agreeable to continued evaluation. LEONEL improved, decrease fluids to 83cc/hr. otherwise, note and follow nephrology recommendations. renal US unremarkable. apparently he took large amount of ibuprofen. f/u blood and wound culture. continue wound care. ESR increasing, CRP decreasing. making good urine output. abx are off now, spoke with infectious disease managed services consultant. f/u blood cultures. pt is agreeable to continue prophylactic pulse dose steroids,monitor LFTs. increase insulin to high dose sliding scale. leukocytosis today but he has been receiving steroids and his procalcitonin is 0.1. cont current prn pain regimen. petechia appear 10% improved. cont to monitor off abx. full code greater than 55 minutes spent with patient and coordinating care. Subjective Date/time seen: 04/07/25 21:18 Interval history: no major acute overnight events. pt reports consistent pain at the leg lesions, denies sob, cough, abdominal pain. we discussed evaluation, risks vs benefits of drugs Review of Systems Review of Systems: All systems reviewed & are unremarkable except as noted in HPI and below (subjective) Exam Const: General: comfortable and no acute distress Other: obese, A&Ox3 HENMT: Mouth: Yes moist mucous membranes Other: no erythema, lesions, pus of the oral cavity Eyes: Pupils: Equal, round and reactive pupils present Other: no conjunctiva hemorrhage Neck: Neck: supple Lymphatic: lymphadenopathy not noted Resp: Effort & Inspection: normal respiratory effort Auscultation: clear to auscultation bilaterally Cardio: Rate: regular rate Rhythm: regular rhythm GI: Inspection: non-distended GI Palp: Yes Soft to palpation Auscultation: normal bowel sounds Skin: Other: petechia of b/l feet, no hemorrhages of the nail beds. painful papules, open ulcers with slough, painful to palpation. no foul oder, pus drainage, or angry erythema. Neuro: Motor exam (neuro): 5/5 motor strength present throughout Extrem: Other: 1+ pitting edema b/l lower extremities Psych: Mental Status: mental status grossly normal Objective Data Vital Signs Vital Signs: Vital Signs - 24 hr 04/06/25 22:00 04/07/25 06:10 04/07/25 09:09 Temperature 98.5 F 97.1 F L Pulse Rate 75 65 Respiratory Rate 18 18 Blood Pressure 116/58 L 136/60 Pulse Oximetry 96 96 Oxygen Delivery Room Air 04/07/25 14:57 Temperature 97.6 F Pulse Rate 72 Respiratory Rate 18 Blood Pressure 137/71 Pulse Oximetry 100 Oxygen Delivery Intake/Output Intake/Output: Intake & Output 04/04/25 04/05/25 04/06/25 04/07/25 23:59 23:59 23:59 23:59 Intake Total 5030.4 3070 4290 Output Total 500 1300 500 Balance 4530.4 1770 3790 Meds/Results Medications: Active Medications Generic Name Dose Route Start Last Admin Trade Name Freq PRN Reason Stop Dose Admin Hydrocodone Bitart/Acetaminophen 1 tab 04/05/25 16:06 04/07/25 10:59 Hydrocodone/Acetaminophen (*Crx) 10-325 Mg Tablet PO 1 tab Q4H PRN Administration Pain Rated 7-10 Cyclobenzaprine HCl 10 mg 04/05/25 21:29 04/05/25 21:44 Cyclobenzaprine Hcl 10 Mg Tablet PO 10 mg HS PRN Administration Muscle Spasm Dextrose 12.5 gm 04/05/25 14:57 Dextrose 50% 25 Gm/50 Ml Syringe IV PUSH PRN PRN Hypoglycemia Protocol Diphenhydramine HCl 25 mg 04/05/25 21:34 04/07/25 00:22 Diphenhydramine Hcl Inj 50 Mg/Ml Vial IV PUSH 25 mg Q4H PRN Administration Itching Ferrous Sulfate 325 mg 04/06/25 09:00 04/07/25 09:05 Ferrous Sulfate 325 Mg Tablet PO 325 mg DAILY LEROY Administration Glucagon 1 mg 04/05/25 14:57 Glucagon For Inj 1 Mg Vial IM PRN PRN Hypoglycemia Protocol Glucose 15 gm 04/05/25 14:57 Glucose Oral Gel 15 Gm Of Glucse In 37.5 Gm Tube PO PRN PRN Hypoglycemia Protocol Sodium Chloride 1,000 mls @ 83 mls/hr 04/05/25 05:05 04/07/25 14:55 Normal Saline Iv IV CONT 83 mls/hr .Q12H3M LEROY Administration Dextrose 1,000 mls @ 100 mls/hr 04/05/25 14:57 Dextrose 5% 1,000 Ml IVPB PRN PRN Hypoglycemia Protocol Insulin Aspart 4 - 8 units 04/08/25 08:00 Insulin Aspart (*Bkc) 100 Units/Ml SUB-Q TIDWM LEROY Protocol Insulin Aspart 2 - 4 units 04/08/25 21:00 Insulin Aspart (*Bkc) 100 Units/Ml SUB-Q HS LEROY Protocol Levothyroxine Sodium 25 mcg 04/06/25 06:30 04/07/25 05:42 Levothyroxine Sodium 25 Mcg Tablet PO 25 mcg DAILY@0630 LEROY Administration Methylprednisolone Sodium Succinate 120 mg 04/06/25 18:00 04/07/25 17:15 Methylprednisolone Sod Succ 125 Mg Vial IV PUSH 120 mg Q6HR LEROY Administration Morphine Sulfate 2 mg 04/07/25 21:16 Morphine Sulfate (*Crx) 4 Mg/Ml Inj IV PUSH Q2H PRN Pain Rated 7-10 Radiology Results: ITS Impressions Renal Ultrasound 04/06/25 20:18 IMPRESSION: 1. Normal kidney sizes. No hydronephrosis. Labs Labs: Laboratory Results - last 24 hr 04/06/25 04/07/25 04/07/25 20:45 08:17 08:18 WBC 11.6 H RBC 4.21 L Hgb 11.0 L Hct 35.3 L MCV 83.8 MCH 26.1 MCHC 31.2 L RDW 15.3 H Plt Count 194 MPV 9.9 Immature Gran % (Auto) 1.3 H Neut % (Auto) 90.4 H Lymph % (Auto) 6.6 L [place] % (Auto) 1.6 L Eos % (Auto) 0.0 Baso % (Auto) 0.1 L Lymph # (Auto) 0.77 L [place] # (Auto) 0.2 Eos # (Auto) 0.0 Baso # (Auto) 0.0 Abs Immat Gran (auto) 0.15 H Absolute Neuts (auto) 10.5 H Absolute Nucleated RBC 0.000 Nucleated RBC % 0.0 ESR 58 H Sodium 137 Potassium 3.7 Chloride 105 Carbon Dioxide 25 Anion Gap 7 BUN 35 H Creatinine 1.76 H Estim Creat Clear Calc 76 Estimated GFR 43 L Glucose 306 H POC Capillary Glucose 284 H Calcium 8.1 L Magnesium 2.2 Total Bilirubin 0.2 AST 17 ALT 14 Alkaline Phosphatase 67 C-Reactive Protein 2.8 H Total Protein 6.8 Albumin 3.4 L Procalcitonin 0.1 HIV 1&2 Ab/P24 Ag 4thGn Negative 04/07/25 04/07/25 04/07/25 08:28 12:27 17:14 WBC RBC Hgb Hct MCV MCH MCHC RDW Plt Count MPV Immature Gran % (Auto) Neut % (Auto) Lymph % (Auto) [place] % (Auto) Eos % (Auto) Baso % (Auto) Lymph # (Auto) [place] # (Auto) Eos # (Auto) Baso # (Auto) Abs Immat Gran (auto) Absolute Neuts (auto) Absolute Nucleated RBC Nucleated RBC % ESR Sodium Potassium Chloride Carbon Dioxide Anion Gap BUN Creatinine Estim Creat Clear Calc Estimated GFR Glucose POC Capillary Glucose 298 H 332 H 360 H Calcium Magnesium Total Bilirubin AST ALT Alkaline Phosphatase C-Reactive Protein Total Protein Albumin Procalcitonin HIV 1&2 Ab/P24 Ag 4thGn
[2025-04-07 22:08] VITALS: BP 134/60; PULSE 60; RESP 18; TEMP 36.1; O2SAT 99
[2025-04-07] MEDS: MORPHINE SULFATE (*CRX) 4 MG/ML INJ 2 MG IV PUSH (23:03)
[2025-04-07] MEDS: CYCLOBENZAPRINE HCL 10 MG TABLET PO (23:04)
[2025-04-08] MEDS: SODIUM CHLORIDE 0.9% IV 1,000 ML 83 ML IV CONT ×2 (03:05→17:27)
[2025-04-08] MEDS: LEVOTHYROXINE SODIUM 25 MCG TABLET PO (05:43)
[2025-04-08] MEDS: MORPHINE SULFATE (*CRX) 4 MG/ML INJ 2 MG IV PUSH (05:46)
[2025-04-08 05:56] LABS: Hematocrit 33.9 % (42.0-52.0); Hemoglobin 10.2 g/dL (14.0-18.0); Immature Granulocyte Percent A 2.0 % (0-0.5); Lymphocytes Absolute Auto 0.80 K/mm3 (0.9-3.2); Mean Corpuscular HGB Conc 30.1 g/dl (32-36); Mean Corpuscular Hemoglobin 25.6 pg (26-34); Mean Corpuscular Volume 85.0 fl (80-100); Nucleated Red Blood Cells Absolute Auto 0.000 K/mm3 (0.0-0.012); Nucleated Red Blood Cells Perc 0.0 % (0.0-0.2); Platelet Count Result 188 k/mm3 (150-375); Red Blood Count 3.99 M/mm3 (4.6-6.20); White Blood Count 10.9 K/mm3 (4.5-10.0)
[2025-04-08 06:06] LABS: Magnesium 2.2 mg/dL (1.6-2.3)
[2025-04-08 06:25] LABS: Albumin Level 3.2 g/dL (3.5-5.1); Anion Gap 6 mmol/L (4-12); Blood Urea Nitrogen 44 mg/dL (9-20); Calcium 7.6 mg/dL (8.4-10.2); Carbon Dioxide 27 mmol/L (22-30); Chloride 106 mmol/L (98-107); Estimated CRCL calculation 77 ml/min; Estimated Glomerular Filt Rate 44; Glucose 299 mg/dL (65-110); Potassium 3.4 mmol/L (3.4-5.0); Sodium 139 mmol/L (137-145)
[2025-04-08 06:33] LABS: Procalcitonin 0.1 ng/mL
[2025-04-08 06:39] LABS: Hepatitis B Surface Antigen Negative (Negative)
[2025-04-08 06:44] LABS: HAV RESULT Negative (Negative); Hepatitis B Core IgM Result Negative (Negative)
[2025-04-08 06:55] VITALS: BP 146/58; PULSE 54; RESP 18; TEMP 36.4; O2SAT 98
[2025-04-08] MEDS: FERROUS SULFATE 325 MG TABLET PO (08:12)
[2025-04-08] MEDS: INSULIN ASPART (*BKC) 100 UNITS/ML SUB-Q ×4 (08:38→21:30)
[2025-04-08] MEDS: HYDROcodone/acetaminophen (*CRX) 10-325 MG TABLET 1 TAB PO ×3 (09:35→18:17)
--- NOTE | 2025-04-08 10:50 | P.PNNP_ITS ---
Progress Note: A&P Assessment and Plan (1) Acute kidney injury: Code(s): N17.9 - Acute kidney failure, unspecified Status: Acute Assessment and Plan: * slow improvement * as noted by labs on admission * several possible issues: * prerenal factors * infection/early sepsis * high dose NSAID therapy [employer] (possible AIN?) * vasculitis (?) * ARB + diuretic therapy [employer] * other(?) * evaluation to date noted: * renal ultrasound normal * urine eosinophils negative * urine electrolytes suggest prerenal azotemia * UA with blood and protein * serological evaluation pending * CPK low * renal function improving with current interventions * follow trend of repeat labs and UOP (2) Lower extremity cellulitis: Code(s): L03.119 - Cellulitis of unspecified part of limb Status: Acute Assessment and Plan: * slow improvement * suggestive by admission exam * local wound care * antibiotics * Infectious Disease following (3) Wound of foot: Code(s): S91.309A - Unspecified open wound, unspecified foot, initial encounter Status: Acute Assessment and Plan: * possible complication of #2 (?) * wound care following * s/p punch skin biopsy by Surgery * follow-up on pathology * continue supportive therapy (4) Rash: Code(s): R21 - Rash and other nonspecific skin eruption Status: Acute Assessment and Plan: * improvement noted * drug reaction versus vasculitits (?) * clinical appearance favors drug related/induced * on steroids * follow clinical appearance Will continue to follow. L Subjective Date/time seen: 04/08/25 10:50 Interval history: Follow-up for acute kidney injury/acute renal failure. Renal function/creatinine about the same in the last 24 hours and continues to make reasonable urine output; rash over upper body seems to be getting better as are lower extremity lesions; no other issues/events overnight or earlier this morning. Exam 2 Narrative: General: large but WD/WN male in NAD Heart: normal S1 and S2; no rub Lungs: clear to auscultation Abdomen: soft, nontender, nondistended, positive bowel sounds Extremities: no cyanosis or clubbing; 1+ edema Skin: bilateral LE venous stasis changes + skin lesions with dressings in place Objective Data Vital Signs Vital Signs: Vital Signs Temp Pulse Resp BP Pulse Ox O2 Del Method FiO2 04/08/25 08:12 Room Air 04/08/25 06:55 97.5 F L 54 L 18 146/58 H 98 04/07/25 22:08 97.0 F L 60 18 134/60 99 04/07/25 20:00 60 18 99 Room Air 21 Intake/Output Intake/Output: Intake & Output 04/05/25 04/06/25 04/07/25 04/08/25 23:59 23:59 23:59 23:59 Intake Total 5030.4 3070 4290 1940 Output Total 500 1300 500 Balance 4530.4 1770 3790 1940 Meds/Results Medications: Active Medications Generic Name Dose Route Start Last Admin Trade Name Freq PRN Reason Stop Dose Admin Hydrocodone Bitart/Acetaminophen 1 tab 04/05/25 16:06 04/08/25 13:38 Hydrocodone/Acetaminophen (*Crx) 10-325 Mg Tablet PO 1 tab Q4H PRN Administration Pain Rated 7-10 Cyclobenzaprine HCl 10 mg 04/05/25 21:29 04/07/25 23:04 Cyclobenzaprine Hcl 10 Mg Tablet PO 10 mg HS PRN Administration Muscle Spasm Dextrose 12.5 gm 04/05/25 14:57 Dextrose 50% 25 Gm/50 Ml Syringe IV PUSH PRN PRN Hypoglycemia Protocol Diphenhydramine HCl 25 mg 04/05/25 21:34 04/08/25 08:12 Diphenhydramine Hcl Inj 50 Mg/Ml Vial IV PUSH 25 mg Q4H PRN Administration Itching Enoxaparin Sodium 40 mg 04/09/25 09:00 Enoxaparin 40 Mg/0.4 Ml Syringe SUB-Q DAILY LEROY Ergocalciferol 1,250 mcg 04/08/25 13:55 04/08/25 14:44 Home Med (Ergocalciferol (Vitamin D2) 50,000 Unit Capsule PO 1,250 mcg WEEKLY LEROY Administration Ferrous Sulfate 325 mg 04/06/25 09:00 04/08/25 08:12 Ferrous Sulfate 325 Mg Tablet PO 325 mg DAILY LEROY Administration Glucagon 1 mg 04/05/25 14:57 Glucagon For Inj 1 Mg Vial IM PRN PRN Hypoglycemia Protocol Glucose 15 gm 04/05/25 14:57 Glucose Oral Gel 15 Gm Of Glucse In 37.5 Gm Tube PO PRN PRN Hypoglycemia Protocol Sodium Chloride 1,000 mls @ 83 mls/hr 04/05/25 05:05 04/08/25 03:05 Normal Saline Iv IV CONT 83 mls/hr .Q12H3M LEROY Administration Dextrose 1,000 mls @ 100 mls/hr 04/05/25 14:57 Dextrose 5% 1,000 Ml IVPB PRN PRN Hypoglycemia Protocol Insulin Aspart 4 - 8 units 04/08/25 08:00 04/08/25 12:28 Insulin Aspart (*Bkc) 100 Units/Ml SUB-Q 5 units TIDWM LEROY Administration Protocol Insulin Aspart 2 - 4 units 04/08/25 21:00 Insulin Aspart (*Bkc) 100 Units/Ml SUB-Q HS LEROY Protocol Levothyroxine Sodium 25 mcg 04/06/25 06:30 04/08/25 05:43 Levothyroxine Sodium 25 Mcg Tablet PO 25 mcg DAILY@0630 LEROY Administration Methylprednisolone Sodium Succinate 120 mg 04/06/25 18:00 04/08/25 11:56 Methylprednisolone Sod Succ 125 Mg Vial IV PUSH 120 mg Q6HR LEROY Administration Morphine Sulfate 2 mg 04/07/25 21:16 04/08/25 05:46 Morphine Sulfate (*Crx) 4 Mg/Ml Inj IV PUSH 2 mg Q2H PRN Administration Breakthrough Pain Rated 7-10 Home Med ( 200 mg 04/08/25 14:00 04/08/25 14:45 Testosterone IM 05/08/25 13:59 50 mg Cypionate 200 Mg/Ml [id number] LEROY Administration Oil) Radiology Results: ITS Impressions Renal Ultrasound 04/06/25 20:18 IMPRESSION: 1. Normal kidney sizes. No hydronephrosis. Labs Labs: Laboratory Tests 04/08/25 05:35 04/08/25 05:35 Calcium 7.6 L Phosphorus 3.7 Magnesium 2.2 Albumin 3.2 L Procalcitonin 0.1 Microbiology 04/06/25 13:51 Foot - Unspecified Aerobic Culture - Preliminary 04/05/25 14:48 Blood Blood Culture - Preliminary 04/05/25 14:53 Blood Blood Culture - Preliminary
[2025-04-08 11:08] LABS: Chloride, Urine 85 mmol/L (Not Estab.)
--- NOTE | 2025-04-08 11:21 | WPDINFPN2 ---
Progress Note: A&P Assessment and Plan (1) Lower extremity cellulitis: Code(s): L03.119 - Cellulitis of unspecified part of limb Status: Acute (2) Wound of foot: Code(s): S91.309A - Unspecified open wound, unspecified foot, initial encounter Status: Acute (3) Morbid obesity with body mass index (BMI) greater than or equal to 50: Code(s): E66.01 - Morbid (severe) obesity due to excess calories Status: Acute (4) Drug-induced maculopapular rash: Code(s): L27.0 - Generalized skin eruption due to drugs and medicaments taken internally Status: Acute Plan # Bilateral lower extremity lesions related to recent flea infestation exposure and subsequent excoriation wounds. -- lesions may represent inflammation from original flea bites with additional self-inflicted scratch excoriation. Risk of secondary infection but overall not classic for extensive cellulitis. -- rule out vasculitis. -- however, he did present with some degree of leukocytosis which has improved on antibiotics. Antibiotics have since been discontinued. -- overall lesion improvement on steroids. # Obesity with bilateral lower extremity acute on chronic edema and early stasis dermatitis. # Acute maculopapular reaction to upper extremity and torso suggestive of drug reaction. Suspect cefepime. Plan: -- follow off of antibiotics. -- await lower extremity skin lesion biopsy. -- avoid cephalosporins. Avoid Betadine. -- discussed with Dr. De Leon. Patient was seen via video telehealth consultation with the assistance of staff. Chart, data, and patient independently reviewed. Patient was located at [facility] while I was located in my [place] office. Received verbal consent from patient. Subjective Date/time seen: 04/08/25 11:21 Interval history: 04/07/2025: Remains afebrile with white blood cell count 11.6 WBC slightly elevated while on methylprednisolone. Vancomycin discontinued. Status post surgical biopsy of lower extremity lesions. 04/08/2025: afebrile and vital signs stable. Tolerating room air. Hepatitis panel negative. off of antibiotics. Upper body rash appears to be improving. Lower extremity lesions also improving. Biopsy pathology pending. Foot culture 04/06: Pending Review of Systems Review of Systems: All systems reviewed & are unremarkable except as noted in HPI and below Exam Narrative: He is awake and alert nontoxic. Obesity. Directed exam significant for bilateral lower extremity acute on chronic edema. Has evidence of patchy primarily pretibial hyper pigmentation suggestive of chronic stasis dermatitis. Areas of bilateral thighs, further lower extremity, and feet with annular wounds and some with dried blood. Patchy surrounding erythema. Lesions are showing improvement. Skin also with bilateral upper extremity maculopapular eruption. Also seen to less degree on torso. Rash is lightening. Status post lower extremity skin lesion biopsies. Objective Data Vital Signs Vital Signs: Vital Signs - 24 hr 04/07/25 14:57 04/07/25 20:00 04/07/25 22:08 Temperature 97.6 F 97.0 F L Pulse Rate 72 60 60 Respiratory Rate 18 18 18 Blood Pressure 137/71 134/60 Pulse Oximetry 100 99 99 Oxygen Delivery Room Air Fraction of Inspired Oxygen 21 04/08/25 06:55 04/08/25 08:12 Temperature 97.5 F L Pulse Rate 54 L Respiratory Rate 18 Blood Pressure 146/58 H Pulse Oximetry 98 Oxygen Delivery Room Air Fraction of Inspired Oxygen Intake/Output Intake/Output: Intake & Output 04/05/25 04/06/25 04/07/25 04/08/25 23:59 23:59 23:59 23:59 Intake Total 5030.4 3070 4290 1940 Output Total 500 1300 500 Balance 4530.4 1770 3790 1940 Meds/Results Medications: Active Medications Generic Name Dose Route Start Last Admin Trade Name Freq PRN Reason Stop Dose Admin Hydrocodone Bitart/Acetaminophen 1 tab 04/05/25 16:06 04/08/25 09:35 Hydrocodone/Acetaminophen (*Crx) 10-325 Mg Tablet PO 1 tab Q4H PRN Administration Pain Rated 7-10 Cyclobenzaprine HCl 10 mg 04/05/25 21:29 04/07/25 23:04 Cyclobenzaprine Hcl 10 Mg Tablet PO 10 mg HS PRN Administration Muscle Spasm Dextrose 12.5 gm 04/05/25 14:57 Dextrose 50% 25 Gm/50 Ml Syringe IV PUSH PRN PRN Hypoglycemia Protocol Diphenhydramine HCl 25 mg 04/05/25 21:34 04/08/25 08:12 Diphenhydramine Hcl Inj 50 Mg/Ml Vial IV PUSH 25 mg Q4H PRN Administration Itching Ferrous Sulfate 325 mg 04/06/25 09:00 04/08/25 08:12 Ferrous Sulfate 325 Mg Tablet PO 325 mg DAILY LEROY Administration Glucagon 1 mg 04/05/25 14:57 Glucagon For Inj 1 Mg Vial IM PRN PRN Hypoglycemia Protocol Glucose 15 gm 04/05/25 14:57 Glucose Oral Gel 15 Gm Of Glucse In 37.5 Gm Tube PO PRN PRN Hypoglycemia Protocol Sodium Chloride 1,000 mls @ 83 mls/hr 04/05/25 05:05 04/08/25 03:05 Normal Saline Iv IV CONT 83 mls/hr .Q12H3M LEROY Administration Dextrose 1,000 mls @ 100 mls/hr 04/05/25 14:57 Dextrose 5% 1,000 Ml IVPB PRN PRN Hypoglycemia Protocol Insulin Aspart 4 - 8 units 04/08/25 08:00 04/08/25 08:38 Insulin Aspart (*Bkc) 100 Units/Ml SUB-Q 5 units TIDWM LEROY Administration Protocol Insulin Aspart 2 - 4 units 04/08/25 21:00 Insulin Aspart (*Bkc) 100 Units/Ml SUB-Q HS LEROY Protocol Levothyroxine Sodium 25 mcg 04/06/25 06:30 04/08/25 05:43 Levothyroxine Sodium 25 Mcg Tablet PO 25 mcg DAILY@0630 LEROY Administration Methylprednisolone Sodium Succinate 120 mg 04/06/25 18:00 04/08/25 05:43 Methylprednisolone Sod Succ 125 Mg Vial IV PUSH 120 mg Q6HR LEROY Administration Morphine Sulfate 2 mg 04/07/25 21:16 04/08/25 05:46 Morphine Sulfate (*Crx) 4 Mg/Ml Inj IV PUSH 2 mg Q2H PRN Administration Pain Rated 7-10 Radiology Results: ITS Impressions Renal Ultrasound 04/06/25 20:18 IMPRESSION: 1. Normal kidney sizes. No hydronephrosis. Labs Labs: Laboratory Results - last 24 hr 04/06/25 04/07/25 04/07/25 17:35 12:27 17:14 WBC RBC Hgb Hct MCV MCH MCHC RDW Plt Count MPV Immature Gran % (Auto) Neut % (Auto) Lymph % (Auto) [place] % (Auto) Eos % (Auto) Baso % (Auto) Lymph # (Auto) [place] # (Auto) Eos # (Auto) Baso # (Auto) Abs Immat Gran (auto) Absolute Neuts (auto) Absolute Nucleated RBC Nucleated RBC % Sodium Potassium Chloride Carbon Dioxide Anion Gap BUN Creatinine Estim Creat Clear Calc Estimated GFR Glucose POC Capillary Glucose 332 H 360 H Calcium Phosphorus Magnesium Albumin Procalcitonin Urine Chloride 85 Hepatitis A IgM Ab Hep Bs Antigen Hep B Core IgM Ab Hepatitis C Ab Screen 04/07/25 04/07/25 04/08/25 20:19 21:25 05:35 WBC 10.9 H RBC 3.99 L Hgb 10.2 L Hct 33.9 L MCV 85.0 MCH 25.6 L MCHC 30.1 L RDW 15.5 H Plt Count 188 MPV 10.1 Immature Gran % (Auto) 2.0 H Neut % (Auto) 86.0 H Lymph % (Auto) 7.3 L [place] % (Auto) 4.6 Eos % (Auto) 0.0 Baso % (Auto) 0.1 L Lymph # (Auto) 0.80 L [place] # (Auto) 0.5 Eos # (Auto) 0.0 Baso # (Auto) 0.0 Abs Immat Gran (auto) 0.22 H Absolute Neuts (auto) 9.4 H Absolute Nucleated RBC 0.000 Nucleated RBC % 0.0 Sodium 139 Potassium 3.4 Chloride 106 Carbon Dioxide 27 Anion Gap 6 BUN 44 H Creatinine 1.73 H Estim Creat Clear Calc 77 Estimated GFR 44 L Glucose 299 H POC Capillary Glucose 325 H 368 H Calcium 7.6 L Phosphorus 3.7 Magnesium 2.2 Albumin 3.2 L Procalcitonin 0.1 Urine Chloride Hepatitis A IgM Ab Negative Hep Bs Antigen Negative Hep B Core IgM Ab Negative Hepatitis C Ab Screen Negative 04/08/25 08:25 WBC RBC Hgb Hct MCV MCH MCHC RDW Plt Count MPV Immature Gran % (Auto) Neut % (Auto) Lymph % (Auto) [place] % (Auto) Eos % (Auto) Baso % (Auto) Lymph # (Auto) [place] # (Auto) Eos # (Auto) Baso # (Auto) Abs Immat Gran (auto) Absolute Neuts (auto) Absolute Nucleated RBC Nucleated RBC % Sodium Potassium Chloride Carbon Dioxide Anion Gap BUN Creatinine Estim Creat Clear Calc Estimated GFR Glucose POC Capillary Glucose 257 H Calcium Phosphorus Magnesium Albumin Procalcitonin Urine Chloride Hepatitis A IgM Ab Hep Bs Antigen Hep B Core IgM Ab Hepatitis C Ab Screen
--- NOTE | 2025-04-08 12:38 | PHAR ---
HOME MEDS: VITAMIN D2 50,000 IU CAP TAKE 1 CAP BY MOUTH EVERY WEEK TESTOTERONE CYPIONATE 200 MG/ML 1 ML VIAL; NO DIRECTIONS FOR USE, LOOKS LIKE VIAL MIGHT HAVE BEEN ACCESSED ALREADY. NO CAP ON VIAL. VERIFIED BY PHARMACY.
--- NOTE | 2025-04-08 14:26 | P.PNIM_ITS ---
Progress Note: A&P Assessment and Plan (1) Petechiae: Code(s): R23.3 - Spontaneous ecchymoses Status: Acute (2) LEONEL (acute kidney injury): Code(s): N17.9 - Acute kidney failure, unspecified Status: Acute Plan Possible vasculitis Multiple skin rashes with necrotic centers/petechiae and LEONEL Present in uppper and lower extremities HIV negative, c- and p-ANCA negative, Hep B and C negative pathology pending continue Steroids LEONEL Cr 1.73 from 2.15 continue above workup on IVF US renal no acute changes DVT prophylaxis on Sq Lovenox Subjective Date/time seen: 04/08/25 14:26 Interval history: Comfortable at bedside and noted symptoms are improving Review of Systems Review of Systems: All other systems were reviewed and negative except as noted in the HPI above. All systems reviewed & are unremarkable except as noted in HPI and below (subjective) Exam Narrative: General: alert and comfortable Eyes: EOMI, PERRLA ENNT External ears normal, Neck is supple, no masses, Respiratory systems: Clear to auscultation Cardiovascular S1, S2, normal rhythm, no murmur, rub, or gallop; no thrill or palpable murmurs on palpation. Gastrointestinal: soft, non-tender, and non-distended abdomen with no masses; BS present Skin: multiple small ulcers bilateral feet, with eythema and tender to touch Musculoskeletal: no abnormality and no tenderness, normal ROM Neurologic: Alert and oriented x3, non focal Mental Status Exam: normal affect Const: General: comfortable and no acute distress Other: obese, A&Ox3 HENMT: Mouth: Yes moist mucous membranes Other: no erythema, lesions, pus of the oral cavity Eyes: Pupils: Equal, round and reactive pupils present Other: no conjunctiva hemorrhage Neck: Neck: supple Lymphatic: lymphadenopathy not noted Resp: Effort & Inspection: normal respiratory effort Auscultation: clear to auscultation bilaterally Cardio: Rate: regular rate Rhythm: regular rhythm GI: Inspection: non-distended Auscultation: normal bowel sounds Skin: Other: petechia of b/l feet, no hemorrhages of the nail beds. painful papules, open ulcers with slough, painful to palpation. no foul oder, pus drainage, or angry erythema. Neuro: Cranial nerves: Yes Equal, round and reactive pupils present Motor exam (neuro): 5/5 motor strength present throughout Extrem: Other: 1+ pitting edema b/l lower extremities Psych: Mental Status: mental status grossly normal Objective Data Vital Signs Vital Signs: Vital Signs - 24 hr 04/07/25 14:57 04/07/25 20:00 04/07/25 22:08 Temperature 97.6 F 97.0 F L Pulse Rate 72 60 60 Respiratory Rate 18 18 18 Blood Pressure 137/71 134/60 Pulse Oximetry 100 99 99 Oxygen Delivery Room Air Fraction of Inspired Oxygen 21 04/08/25 06:55 04/08/25 08:12 Temperature 97.5 F L Pulse Rate 54 L Respiratory Rate 18 Blood Pressure 146/58 H Pulse Oximetry 98 Oxygen Delivery Room Air Fraction of Inspired Oxygen Intake/Output Intake/Output: Intake & Output 04/05/25 04/06/25 04/07/25 04/08/25 23:59 23:59 23:59 23:59 Intake Total 5030.4 3070 4290 1940 Output Total 500 1300 500 Balance 4530.4 1770 3790 1940 Meds/Results Medications: Active Medications Generic Name Dose Route Start Last Admin Trade Name Freq PRN Reason Stop Dose Admin Hydrocodone Bitart/Acetaminophen 1 tab 04/05/25 16:06 04/08/25 13:38 Hydrocodone/Acetaminophen (*Crx) 10-325 Mg Tablet PO 1 tab Q4H PRN Administration Pain Rated 7-10 Cyclobenzaprine HCl 10 mg 04/05/25 21:29 04/07/25 23:04 Cyclobenzaprine Hcl 10 Mg Tablet PO 10 mg HS PRN Administration Muscle Spasm Dextrose 12.5 gm 04/05/25 14:57 Dextrose 50% 25 Gm/50 Ml Syringe IV PUSH PRN PRN Hypoglycemia Protocol Diphenhydramine HCl 25 mg 04/05/25 21:34 04/08/25 08:12 Diphenhydramine Hcl Inj 50 Mg/Ml Vial IV PUSH 25 mg Q4H PRN Administration Itching Ergocalciferol 1,250 mcg 04/08/25 13:55 Home Med (Ergocalciferol (Vitamin D2) 50,000 Unit Capsule PO WEEKLY LEROY Ferrous Sulfate 325 mg 04/06/25 09:00 04/08/25 08:12 Ferrous Sulfate 325 Mg Tablet PO 325 mg DAILY LEROY Administration Glucagon 1 mg 04/05/25 14:57 Glucagon For Inj 1 Mg Vial IM PRN PRN Hypoglycemia Protocol Glucose 15 gm 04/05/25 14:57 Glucose Oral Gel 15 Gm Of Glucse In 37.5 Gm Tube PO PRN PRN Hypoglycemia Protocol Sodium Chloride 1,000 mls @ 83 mls/hr 04/05/25 05:05 04/08/25 03:05 Normal Saline Iv IV CONT 83 mls/hr .Q12H3M LEROY Administration Dextrose 1,000 mls @ 100 mls/hr 04/05/25 14:57 Dextrose 5% 1,000 Ml IVPB PRN PRN Hypoglycemia Protocol Insulin Aspart 4 - 8 units 04/08/25 08:00 04/08/25 12:28 Insulin Aspart (*Bkc) 100 Units/Ml SUB-Q 5 units TIDWM LEROY Administration Protocol Insulin Aspart 2 - 4 units 04/08/25 21:00 Insulin Aspart (*Bkc) 100 Units/Ml SUB-Q HS LEROY Protocol Levothyroxine Sodium 25 mcg 04/06/25 06:30 04/08/25 05:43 Levothyroxine Sodium 25 Mcg Tablet PO 25 mcg DAILY@0630 LEROY Administration Methylprednisolone Sodium Succinate 120 mg 04/06/25 18:00 04/08/25 11:56 Methylprednisolone Sod Succ 125 Mg Vial IV PUSH 120 mg Q6HR LEROY Administration Morphine Sulfate 2 mg 04/07/25 21:16 04/08/25 05:46 Morphine Sulfate (*Crx) 4 Mg/Ml Inj IV PUSH 2 mg Q2H PRN Administration Breakthrough Pain Rated 7-10 Home Med ( 200 mg 04/08/25 14:00 Testosterone IM 05/08/25 13:59 Cypionate 200 Mg/Ml [id number] [facility] Oil) Radiology Results: ITS Impressions Renal Ultrasound 04/06/25 20:18 IMPRESSION: 1. Normal kidney sizes. No hydronephrosis. Labs Labs: Laboratory Results - last 24 hr 04/06/25 04/06/25 04/07/25 17:14 17:35 17:14 WBC RBC Hgb Hct MCV MCH MCHC RDW Plt Count MPV Immature Gran % (Auto) Neut % (Auto) Lymph % (Auto) [place] % (Auto) Eos % (Auto) Baso % (Auto) Lymph # (Auto) [place] # (Auto) Eos # (Auto) Baso # (Auto) Abs Immat Gran (auto) Absolute Neuts (auto) Absolute Nucleated RBC Nucleated RBC % Sodium Potassium Chloride Carbon Dioxide Anion Gap BUN Creatinine Estim Creat Clear Calc Estimated GFR Glucose POC Capillary Glucose 360 H Calcium Phosphorus Magnesium Albumin Procalcitonin Urine Chloride 85 c-ANCA Antibody <1:20 Atypical p-ANCA <1:20 p-ANCA Antibody <1:20 Hepatitis A IgM Ab Hep Bs Antigen Hep B Core IgM Ab Hepatitis C Ab Screen 04/07/25 04/07/25 04/08/25 20:19 21:25 05:35 WBC 10.9 H RBC 3.99 L Hgb 10.2 L Hct 33.9 L MCV 85.0 MCH 25.6 L MCHC 30.1 L RDW 15.5 H Plt Count 188 MPV 10.1 Immature Gran % (Auto) 2.0 H Neut % (Auto) 86.0 H Lymph % (Auto) 7.3 L [place] % (Auto) 4.6 Eos % (Auto) 0.0 Baso % (Auto) 0.1 L Lymph # (Auto) 0.80 L [place] # (Auto) 0.5 Eos # (Auto) 0.0 Baso # (Auto) 0.0 Abs Immat Gran (auto) 0.22 H Absolute Neuts (auto) 9.4 H Absolute Nucleated RBC 0.000 Nucleated RBC % 0.0 Sodium 139 Potassium 3.4 Chloride 106 Carbon Dioxide 27 Anion Gap 6 BUN 44 H Creatinine 1.73 H Estim Creat Clear Calc 77 Estimated GFR 44 L Glucose 299 H POC Capillary Glucose 325 H 368 H Calcium 7.6 L Phosphorus 3.7 Magnesium 2.2 Albumin 3.2 L Procalcitonin 0.1 Urine Chloride c-ANCA Antibody Atypical p-ANCA p-ANCA Antibody Hepatitis A IgM Ab Negative Hep Bs Antigen Negative Hep B Core IgM Ab Negative Hepatitis C Ab Screen Negative 04/08/25 04/08/25 08:25 12:20 WBC RBC Hgb Hct MCV MCH MCHC RDW Plt Count MPV Immature Gran % (Auto) Neut % (Auto) Lymph % (Auto) [place] % (Auto) Eos % (Auto) Baso % (Auto) Lymph # (Auto) [place] # (Auto) Eos # (Auto) Baso # (Auto) Abs Immat Gran (auto) Absolute Neuts (auto) Absolute Nucleated RBC Nucleated RBC % Sodium Potassium Chloride Carbon Dioxide Anion Gap BUN Creatinine Estim Creat Clear Calc Estimated GFR Glucose POC Capillary Glucose 257 H 265 H Calcium Phosphorus Magnesium Albumin Procalcitonin Urine Chloride c-ANCA Antibody Atypical p-ANCA p-ANCA Antibody Hepatitis A IgM Ab Hep Bs Antigen Hep B Core IgM Ab Hepatitis C Ab Screen
[2025-04-08] MEDS: ERGOCALCIFEROL 50000 UNIT 1250 MCG PO (14:44)
[2025-04-08] MEDS: TESTOSTERONE CYPIONATE 200 MG/ML IM (14:45)
[2025-04-08] MEDS: OIL IM (14:45)
[2025-04-08 17:26] VITALS: BP 138/79; PULSE 63; RESP 18; TEMP 36.8; O2SAT 100
[2025-04-08 20:00] VITALS: PULSE 55; RESP 18; O2SAT 97
[2025-04-08 20:53] VITALS: BP 144/77; PULSE 55; RESP 18; TEMP 36.7; O2SAT 97
[2025-04-09] MEDS: HYDROcodone/acetaminophen (*CRX) 10-325 MG TABLET 1 TAB PO ×4 (00:11→23:34)
[2025-04-09] MEDS: CYCLOBENZAPRINE HCL 10 MG TABLET PO ×2 (00:12→23:34)
[2025-04-09] MEDS: MORPHINE SULFATE (*CRX) 4 MG/ML INJ 2 MG IV PUSH ×2 (03:08→18:34)
[2025-04-09 04:39] VITALS: BP 134/82; PULSE 55; RESP 16; TEMP 36.2; O2SAT 97
[2025-04-09] MEDS: LEVOTHYROXINE SODIUM 25 MCG TABLET PO (05:36)
[2025-04-09] MEDS: SODIUM CHLORIDE 0.9% IV 1,000 ML 83 ML IV CONT (05:38)
[2025-04-09 05:59] LABS: Hematocrit 37.8 % (42.0-52.0); Hemoglobin 11.2 g/dL (14.0-18.0); Immature Granulocyte Percent A 6.9 % (0-0.5); Lymphocytes Absolute Auto 0.92 K/mm3 (0.9-3.2); Mean Corpuscular HGB Conc 29.6 g/dl (32-36); Mean Corpuscular Hemoglobin 26.1 pg (26-34); Mean Corpuscular Volume 88.1 fl (80-100); Nucleated Red Blood Cells Absolute Auto 0.000 K/mm3 (0.0-0.012); Nucleated Red Blood Cells Perc 0.0 % (0.0-0.2); Platelet Count Result 187 k/mm3 (150-375); Red Blood Count 4.29 M/mm3 (4.6-6.20); White Blood Count 9.1 K/mm3 (4.5-10.0)
[2025-04-09 06:23] LABS: Alanine Aminotransferase 13 U/L (6-50); Albumin Level 3.3 g/dL (3.5-5.1); Alkaline Phosphatase 61 U/L (38-126); Anion Gap 8 mmol/L (4-12); Aspartate Amino Transferase 14 U/L (17-59); Bilirubin,Total 0.2 mg/dL (0.2-1.3); Blood Urea Nitrogen 49 mg/dL (9-20); Calcium 7.8 mg/dL (8.4-10.2); Carbon Dioxide 24 mmol/L (22-30); Chloride 106 mmol/L (98-107); Estimated CRCL calculation 85 ml/min; Estimated Glomerular Filt Rate 49; Glucose 308 mg/dL (65-110); Magnesium 2.2 mg/dL (1.6-2.3); Potassium 3.5 mmol/L (3.4-5.0); Sodium 138 mmol/L (137-145); Total Protein 6.0 g/dL (6.3-8.2)
[2025-04-09] MEDS: ENOXAPARIN 40 MG/0.4 ML SYRINGE SUB-Q (10:06)
[2025-04-09] MEDS: FERROUS SULFATE 325 MG TABLET PO (10:06)
[2025-04-09] MEDS: INSULIN ASPART (*BKC) 100 UNITS/ML SUB-Q ×4 (10:07→20:38)
--- NOTE | 2025-04-09 11:13 | P.PNNP_ITS ---
Progress Note: A&P Assessment and Plan (1) Acute kidney injury: Code(s): N17.9 - Acute kidney failure, unspecified Status: Acute Assessment and Plan: * slow improvement * as noted by labs on admission * several possible issues: * prerenal factors * infection/early sepsis * high dose NSAID therapy [employer] (possible AIN?) * vasculitis (?) * ARB + diuretic therapy [employer] CONS[employer]ANT * other(?) * evaluation to date noted: * renal ultrasound normal * urine eosinophils negative * urine electrolytes suggest prerenal azotemia * UA with blood and protein * serological evaluation pending * CPK low * renal function improving with current interventions * follow trend of repeat labs and UOP (2) Lower extremity cellulitis: Code(s): L03.119 - Cellulitis of unspecified part of limb Status: Acute Assessment and Plan: * slow improvement * suggestive by admission exam * local wound care * antibiotics * Infectious Disease following (3) Wound of foot: Code(s): S91.309A - Unspecified open wound, unspecified foot, initial encounter Status: Acute Assessment and Plan: * possible complication of #2 (?) * wound care following * s/p punch skin biopsy by Surgery * follow-up on pathology * continue supportive therapy (4) Rash: Code(s): R21 - Rash and other nonspecific skin eruption Status: Acute Assessment and Plan: * improvement noted * drug reaction versus vasculitits (?) * clinical appearance favors drug related/induced * on steroids * follow clinical appearance Will continue to follow. L Subjective Date/time seen: 04/09/25 11:13 Interval history: Follow-up for acute kidney injury/acute renal failure. No apparent distress noted at the time of my visit; renal function/creatinine appears to be slowly improving with current therapy/interventions; reports increased lower extremity swelling/edema when sitting up for a bit; eating and drinking okay; no other issues/events overnight or earlier this morning. Exam 2 Narrative: General: large but WD/WN male in NAD Heart: normal S1 and S2; no rub Lungs: clear to auscultation Abdomen: soft, nontender, nondistended, positive bowel sounds Extremities: no cyanosis or clubbing; 1+ edema Skin: bilateral LE venous stasis changes + skin lesions with dressings in place Objective Data Vital Signs Vital Signs: Vital Signs Temp Pulse Resp BP Pulse Ox O2 Del Method FiO2 04/09/25 11:00 98.1 F 60 20 133/82 98 04/09/25 08:00 Room Air 04/09/25 04:39 97.1 F L 55 L 16 134/82 97 04/08/25 20:53 98.0 F 55 L 18 144/77 H 97 04/08/25 20:00 55 L 18 97 Room Air 21 Intake/Output Intake/Output: Intake & Output 04/06/25 04/07/25 04/08/25 04/09/25 23:59 23:59 23:59 23:59 Intake Total 3070 4290 5160 5560 Output Total 1300 500 Balance 1770 3790 5160 5560 Meds/Results Medications: Active Medications Generic Name Dose Route Start Last Admin Trade Name Freq PRN Reason Stop Dose Admin Hydrocodone Bitart/Acetaminophen 1 tab 04/05/25 16:06 04/09/25 16:50 Hydrocodone/Acetaminophen (*Crx) 10-325 Mg Tablet PO 1 tab Q4H PRN Administration Pain Rated 7-10 Cyclobenzaprine HCl 10 mg 04/05/25 21:29 04/09/25 00:12 Cyclobenzaprine Hcl 10 Mg Tablet PO 10 mg HS PRN Administration Muscle Spasm Dextrose 12.5 gm 04/05/25 14:57 Dextrose 50% 25 Gm/50 Ml Syringe IV PUSH PRN PRN Hypoglycemia Protocol Diphenhydramine HCl 25 mg 04/05/25 21:34 04/09/25 00:12 Diphenhydramine Hcl Inj 50 Mg/Ml Vial IV PUSH 25 mg Q4H PRN Administration Itching Enoxaparin Sodium 40 mg 04/09/25 09:00 04/09/25 10:06 Enoxaparin 40 Mg/0.4 Ml Syringe SUB-Q 40 mg DAILY LEROY Administration Ergocalciferol 1,250 mcg 04/08/25 13:55 04/08/25 14:44 Home Med (Ergocalciferol (Vitamin D2) 50,000 Unit Capsule PO 1,250 mcg WEEKLY LEROY Administration Ferrous Sulfate 325 mg 04/06/25 09:00 04/09/25 10:06 Ferrous Sulfate 325 Mg Tablet PO 325 mg DAILY LEROY Administration Glucagon 1 mg 04/05/25 14:57 Glucagon For Inj 1 Mg Vial IM PRN PRN Hypoglycemia Protocol Glucose 15 gm 04/05/25 14:57 Glucose Oral Gel 15 Gm Of Glucse In 37.5 Gm Tube PO PRN PRN Hypoglycemia Protocol Dextrose 1,000 mls @ 100 mls/hr 04/05/25 14:57 Dextrose 5% 1,000 Ml IVPB PRN PRN Hypoglycemia Protocol Insulin Aspart 4 - 8 units 04/08/25 08:00 04/09/25 12:51 Insulin Aspart (*Bkc) 100 Units/Ml SUB-Q 5 units TIDWM LEROY Administration Protocol Insulin Aspart 2 - 4 units 04/08/25 21:00 04/08/25 21:30 Insulin Aspart (*Bkc) 100 Units/Ml SUB-Q 2 units HS LEROY Administration Protocol Levothyroxine Sodium 25 mcg 04/06/25 06:30 04/09/25 05:36 Levothyroxine Sodium 25 Mcg Tablet PO 25 mcg DAILY@0630 LEROY Administration Methylprednisolone Sodium Succinate 120 mg 04/06/25 18:00 04/09/25 16:50 Methylprednisolone Sod Succ 125 Mg Vial IV PUSH 120 mg Q6HR LEROY Administration Morphine Sulfate 2 mg 04/07/25 21:16 04/09/25 03:08 Morphine Sulfate (*Crx) 4 Mg/Ml Inj IV PUSH 2 mg Q2H PRN Administration Breakthrough Pain Rated 7-10 Home Med ( 200 mg 04/08/25 14:00 04/08/25 14:45 Testosterone IM 05/08/25 13:59 50 mg Cypionate 200 Mg/Ml [id number] LEROY Administration Oil) Radiology Results: ITS Impressions Renal Ultrasound 04/06/25 20:18 IMPRESSION: 1. Normal kidney sizes. No hydronephrosis. Labs Labs: Laboratory Tests 04/09/25 05:36 04/09/25 05:36 Calcium 7.8 L Magnesium 2.2 Total Bilirubin 0.2 AST 14 L ALT 13 Alkaline Phosphatase 61 Total Protein 6.0 L Albumin 3.3 L Microbiology 04/06/25 13:51 Foot - Unspecified Aerobic Culture - Final 04/05/25 14:48 Blood Blood Culture - Preliminary 04/05/25 14:53 Blood Blood Culture - Preliminary
--- NOTE | 2025-04-09 11:18 | PM.IMPN ---
Progress Note: A&P Assessment and Plan (1) Petechiae: Code(s): R23.3 - Spontaneous ecchymoses Status: Acute (2) LEONEL (acute kidney injury): Code(s): N17.9 - Acute kidney failure, unspecified Status: Acute Plan Possible vasculitis Multiple skin rashes with necrotic centers/petechiae and LEONEL Present in upper and lower extremities HIV negative, c- and p-ANCA negative, Hep B and C negative pathology pending continue Steroids LEONEL Cr 1.56 from 2.15 continue above workup stop IVF due to fluid overload US renal no acute changes DVT prophylaxis on Sq Lovenox Subjective Date/time seen: 04/09/25 11:18 Interval history: Comfortable at bedside and complained of leg swelling when sitting down for a prolonged time Stopped IVF. awaiting pathology Review of Systems Review of Systems: All other systems were reviewed and negative except as noted in the HPI above. All systems reviewed & are unremarkable except as noted in HPI and below (subjective) Exam Narrative: General: alert and comfortable Eyes: EOMI, PERRLA ENNT External ears normal, Neck is supple, no masses, Respiratory systems: Clear to auscultation Cardiovascular S1, S2, normal rhythm, no murmur, rub, or gallop; no thrill or palpable murmurs on palpation. Gastrointestinal: soft, non-tender, and non-distended abdomen with no masses; BS present Skin: multiple small ulcers bilateral feet, with eythema and tender to touch Musculoskeletal: no abnormality and no tenderness, normal ROM Neurologic: Alert and oriented x3, non focal Mental Status Exam: normal affect Const: General: comfortable and no acute distress Other: obese, A&Ox3 HENMT: Mouth: Yes moist mucous membranes Other: no erythema, lesions, pus of the oral cavity Eyes: Pupils: Equal, round and reactive pupils present Other: no conjunctiva hemorrhage Neck: Neck: supple Lymphatic: lymphadenopathy not noted Resp: Effort & Inspection: normal respiratory effort Auscultation: clear to auscultation bilaterally Cardio: Rate: regular rate Rhythm: regular rhythm GI: Inspection: non-distended Auscultation: normal bowel sounds Skin: Other: petechia of b/l feet, no hemorrhages of the nail beds. painful papules, open ulcers with slough, painful to palpation. no foul oder, pus drainage, or angry erythema. Neuro: Cranial nerves: Yes Equal, round and reactive pupils present Motor exam (neuro): 5/5 motor strength present throughout Extrem: Other: 1+ pitting edema b/l lower extremities Psych: Mental Status: mental status grossly normal Objective Data Vital Signs Vital Signs: Vital Signs - 24 hr 04/08/25 17:26 04/08/25 20:00 04/08/25 20:53 Temperature 98.2 F 98.0 F Pulse Rate 63 55 L 55 L Respiratory Rate 18 18 18 Blood Pressure 138/79 144/77 H Pulse Oximetry 100 97 97 Oxygen Delivery Room Air Fraction of Inspired Oxygen 21 04/09/25 04:39 04/09/25 08:00 Temperature 97.1 F L Pulse Rate 55 L Respiratory Rate 16 Blood Pressure 134/82 Pulse Oximetry 97 Oxygen Delivery Room Air Fraction of Inspired Oxygen Intake/Output Intake/Output: Intake & Output 04/06/25 04/07/25 04/08/25 04/09/25 23:59 23:59 23:59 23:59 Intake Total 3070 4290 5160 3280 Output Total 1300 500 Balance 1770 3790 5160 3280 Meds/Results Medications: Active Medications Generic Name Dose Route Start Last Admin Trade Name Freq PRN Reason Stop Dose Admin Hydrocodone Bitart/Acetaminophen 1 tab 04/05/25 16:06 04/09/25 05:36 Hydrocodone/Acetaminophen (*Crx) 10-325 Mg Tablet PO 1 tab Q4H PRN Administration Pain Rated 7-10 Cyclobenzaprine HCl 10 mg 04/05/25 21:29 04/09/25 00:12 Cyclobenzaprine Hcl 10 Mg Tablet PO 10 mg HS PRN Administration Muscle Spasm Dextrose 12.5 gm 04/05/25 14:57 Dextrose 50% 25 Gm/50 Ml Syringe IV PUSH PRN PRN Hypoglycemia Protocol Diphenhydramine HCl 25 mg 04/05/25 21:34 04/09/25 00:12 Diphenhydramine Hcl Inj 50 Mg/Ml Vial IV PUSH 25 mg Q4H PRN Administration Itching Enoxaparin Sodium 40 mg 04/09/25 09:00 04/09/25 10:06 Enoxaparin 40 Mg/0.4 Ml Syringe SUB-Q 40 mg DAILY LEROY Administration Ergocalciferol 1,250 mcg 04/08/25 13:55 04/08/25 14:44 Home Med (Ergocalciferol (Vitamin D2) 50,000 Unit Capsule PO 1,250 mcg WEEKLY LEROY Administration Ferrous Sulfate 325 mg 04/06/25 09:00 04/09/25 10:06 Ferrous Sulfate 325 Mg Tablet PO 325 mg DAILY LEROY Administration Glucagon 1 mg 04/05/25 14:57 Glucagon For Inj 1 Mg Vial IM PRN PRN Hypoglycemia Protocol Glucose 15 gm 04/05/25 14:57 Glucose Oral Gel 15 Gm Of Glucse In 37.5 Gm Tube PO PRN PRN Hypoglycemia Protocol Sodium Chloride 1,000 mls @ 83 mls/hr 04/05/25 05:05 04/09/25 05:38 Normal Saline Iv IV CONT 83 mls/hr .Q12H3M LEROY Administration Dextrose 1,000 mls @ 100 mls/hr 04/05/25 14:57 Dextrose 5% 1,000 Ml IVPB PRN PRN Hypoglycemia Protocol Insulin Aspart 4 - 8 units 04/08/25 08:00 04/09/25 10:07 Insulin Aspart (*Bkc) 100 Units/Ml SUB-Q 5 units TIDWM LEROY Administration Protocol Insulin Aspart 2 - 4 units 04/08/25 21:00 04/08/25 21:30 Insulin Aspart (*Bkc) 100 Units/Ml SUB-Q 2 units HS LEROY Administration Protocol Levothyroxine Sodium 25 mcg 04/06/25 06:30 04/09/25 05:36 Levothyroxine Sodium 25 Mcg Tablet PO 25 mcg DAILY@0630 LEROY Administration Methylprednisolone Sodium Succinate 120 mg 04/06/25 18:00 04/09/25 05:36 Methylprednisolone Sod Succ 125 Mg Vial IV PUSH 120 mg Q6HR LEROY Administration Morphine Sulfate 2 mg 04/07/25 21:16 04/09/25 03:08 Morphine Sulfate (*Crx) 4 Mg/Ml Inj IV PUSH 2 mg Q2H PRN Administration Breakthrough Pain Rated 7-10 Home Med ( 200 mg 04/08/25 14:00 04/08/25 14:45 Testosterone IM 05/08/25 13:59 50 mg Cypionate 200 Mg/Ml [id number] LEROY Administration Oil) Radiology Results: ITS Impressions Renal Ultrasound 04/06/25 20:18 IMPRESSION: 1. Normal kidney sizes. No hydronephrosis. Labs Labs: Laboratory Results - last 24 hr 04/06/25 04/08/2525 17:14 12:20 17:10 WBC RBC Hgb Hct MCV MCH MCHC RDW Plt Count MPV Immature Gran % (Auto) Neut % (Auto) Lymph % (Auto) [place] % (Auto) Eos % (Auto) Baso % (Auto) Lymph # (Auto) [place] # (Auto) Eos # (Auto) Baso # (Auto) Abs Immat Gran (auto) Absolute Neuts (auto) Absolute Nucleated RBC Nucleated RBC % Sodium Potassium Chloride Carbon Dioxide Anion Gap BUN Creatinine Estim Creat Clear Calc Estimated GFR Glucose POC Capillary Glucose 265 H 310 H Calcium Magnesium Total Bilirubin AST ALT Alkaline Phosphatase Total Protein Albumin c-ANCA Antibody <1:20 Atypical p-ANCA <1:20 p-ANCA Antibody <1:20 04/08/25 04/09/25 04/09/25 20:58 05:36 08:25 WBC 9.1 RBC 4.29 L Hgb 11.2 L Hct 37.8 L MCV 88.1 MCH 26.1 MCHC 29.6 L RDW 16.1 H Plt Count 187 MPV 10.2 Immature Gran % (Auto) 6.9 H Neut % (Auto) 79.2 H Lymph % (Auto) 10.2 L [place] % (Auto) 3.4 Eos % (Auto) 0.0 Baso % (Auto) 0.3 Lymph # (Auto) 0.92 [place] # (Auto) 0.3 Eos # (Auto) 0.0 Baso # (Auto) 0.0 Abs Immat Gran (auto) 0.62 H Absolute Neuts (auto) 7.2 H Absolute Nucleated RBC 0.000 Nucleated RBC % 0.0 Sodium 138 Potassium 3.5 Chloride 106 Carbon Dioxide 24 Anion Gap 8 BUN 49 H Creatinine 1.56 H Estim Creat Clear Calc 85 Estimated GFR 49 L Glucose 308 H POC Capillary Glucose 248 H 296 H Calcium 7.8 L Magnesium 2.2 Total Bilirubin 0.2 AST 14 L ALT 13 Alkaline Phosphatase 61 Total Protein 6.0 L Albumin 3.3 L c-ANCA Antibody Atypical p-ANCA p-ANCA Antibody
[2025-04-09 14:00] VITALS: BP 133/82; PULSE 60; RESP 20; TEMP 36.7; O2SAT 98
[2025-04-09 20:00] VITALS: PULSE 60; RESP 20; O2SAT 98
[2025-04-09 22:47] VITALS: BP 153/93; PULSE 56; RESP 18; TEMP 36.8; O2SAT 98
[2025-04-10] MEDS: HYDROcodone/acetaminophen (*CRX) 10-325 MG TABLET 1 TAB PO ×4 (05:22→22:18)
[2025-04-10] MEDS: LEVOTHYROXINE SODIUM 25 MCG TABLET PO (05:23)
[2025-04-10 05:55] LABS: Hematocrit 34.8 % (42.0-52.0); Hemoglobin 10.7 g/dL (14.0-18.0); Immature Granulocyte Percent A 8.6 % (0-0.5); Lymphocytes Absolute Auto 1.16 K/mm3 (0.9-3.2); Mean Corpuscular HGB Conc 30.7 g/dl (32-36); Mean Corpuscular Hemoglobin 25.7 pg (26-34); Mean Corpuscular Volume 83.7 fl (80-100); Nucleated Red Blood Cells Absolute Auto 0.020 K/mm3 (0.0-0.012); Nucleated Red Blood Cells Perc 0.2 % (0.0-0.2); Platelet Count Result 210 k/mm3 (150-375); Red Blood Count 4.16 M/mm3 (4.6-6.20); White Blood Count 9.5 K/mm3 (4.5-10.0)
[2025-04-10 06:00] VITALS: BP 113/63; PULSE 50; RESP 16; TEMP 36.4; O2SAT 95
[2025-04-10] MEDS: MORPHINE SULFATE (*CRX) 4 MG/ML INJ 2 MG IV PUSH ×2 (06:18→14:54)
[2025-04-10 06:19] LABS: Alanine Aminotransferase 15 U/L (6-50); Albumin Level 3.1 g/dL (3.5-5.1); Alkaline Phosphatase 54 U/L (38-126); Anion Gap 8 mmol/L (4-12); Aspartate Amino Transferase 19 U/L (17-59); Bilirubin,Total 0.2 mg/dL (0.2-1.3); Blood Urea Nitrogen 46 mg/dL (9-20); Calcium 7.7 mg/dL (8.4-10.2); Carbon Dioxide 26 mmol/L (22-30); Chloride 103 mmol/L (98-107); Estimated CRCL calculation 90 ml/min; Estimated Glomerular Filt Rate 53; Glucose 278 mg/dL (65-110); Magnesium 2.2 mg/dL (1.6-2.3); Potassium 3.1 mmol/L (3.4-5.0); Sodium 137 mmol/L (137-145); Total Protein 5.8 g/dL (6.3-8.2)
[2025-04-10] MEDS: FERROUS SULFATE 325 MG TABLET PO (09:45)
[2025-04-10] MEDS: ENOXAPARIN 40 MG/0.4 ML SYRINGE SUB-Q (09:45)
[2025-04-10] MEDS: INSULIN ASPART (*BKC) 100 UNITS/ML SUB-Q ×4 (09:45→22:23)
--- NOTE | 2025-04-10 13:13 | P.PNNP_ITS ---
Progress Note: A&P Assessment and Plan (1) Acute kidney injury: Code(s): N17.9 - Acute kidney failure, unspecified Status: Acute Assessment and Plan: * slow improvement * as noted by labs on admission * several possible issues: * prerenal factors * infection/early sepsis * high dose NSAID therapy [employer] (possible AIN?) * vasculitis (?) * ARB + diuretic therapy [employer] * other(?) * evaluation to date noted: * renal ultrasound normal * urine eosinophils negative * urine electrolytes suggest prerenal azotemia * UA with blood and protein * serological evaluation pending * CPK low * renal function improving with current interventions * follow trend of repeat labs and UOP (2) Lower extremity cellulitis: Code(s): L03.119 - Cellulitis of unspecified part of limb Status: Acute Assessment and Plan: * slow improvement * suggestive by admission exam * local wound care * antibiotics * Infectious Disease following (3) Wound of foot: Code(s): S91.309A - Unspecified open wound, unspecified foot, initial encounter Status: Acute Assessment and Plan: * possible complication of #2 (?) * wound care following * s/p punch skin biopsy by Surgery * follow-up on pathology * continue supportive therapy (4) Rash: Code(s): R21 - Rash and other nonspecific skin eruption Status: Acute Assessment and Plan: * improvement noted * drug reaction versus vasculitits (?) * clinical appearance favors drug related/induced * on steroids * follow clinical appearance Will continue to follow. L Subjective Date/time seen: 04/10/25 13:13 Interval history: Follow-up for acute kidney injury/acute renal failure. Renal function/creatinine continues to slowly improve with current therapy/interventions; reports ongoing improvement in rash as well; LE edema doing better particularly with use of CATARINA-wraps; no apparent distress voiced at the time of my visit; no other events overnight or earlier this morning. Exam 2 Narrative: General: large but WD/WN male in NAD Heart: normal S1 and S2; no rub Lungs: clear to auscultation Abdomen: soft, nontender, nondistended, positive bowel sounds Extremities: no cyanosis or clubbing; 1+ edema Skin: bilateral LE venous stasis changes + skin lesions with dressings noted Objective Data Vital Signs Vital Signs: Vital Signs - 24 hr 04/09/25 20:00 04/09/25 22:47 04/10/25 06:00 Temperature 98.2 F 97.5 F L Pulse Rate 60 56 L 50 L Respiratory Rate 20 18 16 Blood Pressure 153/93 H 113/63 Pulse Oximetry 98 98 95 Oxygen Delivery Room Air Fraction of Inspired Oxygen 04/10/25 08:00 04/10/25 14:00 Temperature 97.9 F Pulse Rate 68 Respiratory Rate 20 Blood Pressure 128/74 Pulse Oximetry 100 Oxygen Delivery Room Air Fraction of Inspired Oxygen Intake/Output Intake/Output: Intake & Output 04/07/25 04/08/25 04/09/25 04/10/25 23:59 23:59 23:59 23:59 Intake Total 4290 5160 6040 1560 Output Total 500 Balance 3790 5160 6040 1560 Meds/Results Medications: Active Medications Generic Name Dose Route Start Last Admin Trade Name Freq PRN Reason Stop Dose Admin Hydrocodone Bitart/Acetaminophen 1 tab 04/05/25 16:06 04/10/25 17:27 Hydrocodone/Acetaminophen (*Crx) 10-325 Mg Tablet PO 1 tab Q4H PRN Administration Pain Rated 7-10 Cyclobenzaprine HCl 10 mg 04/05/25 21:29 04/09/25 23:34 Cyclobenzaprine Hcl 10 Mg Tablet PO 10 mg HS PRN Administration Muscle Spasm Dextrose 12.5 gm 04/05/25 14:57 Dextrose 50% 25 Gm/50 Ml Syringe IV PUSH PRN PRN Hypoglycemia Protocol Diphenhydramine HCl 25 mg 04/05/25 21:34 04/09/25 23:34 Diphenhydramine Hcl Inj 50 Mg/Ml Vial IV PUSH 25 mg Q4H PRN Administration Itching Enoxaparin Sodium 40 mg 04/09/25 09:00 04/10/25 09:45 Enoxaparin 40 Mg/0.4 Ml Syringe SUB-Q 40 mg DAILY LEROY Administration Ergocalciferol 1,250 mcg 04/08/25 13:55 04/08/25 14:44 Home Med (Ergocalciferol (Vitamin D2) 50,000 Unit Capsule PO 1,250 mcg WEEKLY LEROY Administration Ferrous Sulfate 325 mg 04/06/25 09:00 04/10/25 09:45 Ferrous Sulfate 325 Mg Tablet PO 325 mg DAILY LEROY Administration Glucagon 1 mg 04/05/25 14:57 Glucagon For Inj 1 Mg Vial IM PRN PRN Hypoglycemia Protocol Glucose 15 gm 04/05/25 14:57 Glucose Oral Gel 15 Gm Of Glucse In 37.5 Gm Tube PO PRN PRN Hypoglycemia Protocol Dextrose 1,000 mls @ 100 mls/hr 04/05/25 14:57 Dextrose 5% 1,000 Ml IVPB PRN PRN Hypoglycemia Protocol Insulin Aspart 4 - 8 units 04/08/25 08:00 04/10/25 17:27 Insulin Aspart (*Bkc) 100 Units/Ml SUB-Q 4 units TIDWM LEROY Administration Protocol Insulin Aspart 2 - 4 units 04/08/25 21:00 04/09/25 20:38 Insulin Aspart (*Bkc) 100 Units/Ml SUB-Q 4 units HS LEROY Administration Protocol Levothyroxine Sodium 25 mcg 04/06/25 06:30 04/10/25 05:23 Levothyroxine Sodium 25 Mcg Tablet PO 25 mcg DAILY@0630 LEROY Administration Morphine Sulfate 2 mg 04/07/25 21:16 04/10/25 14:54 Morphine Sulfate (*Crx) 4 Mg/Ml Inj IV PUSH 2 mg Q2H PRN Administration Breakthrough Pain Rated 7-10 Home Med ( 200 mg 04/08/25 14:00 04/08/25 14:45 Testosterone IM 05/08/25 13:59 50 mg Cypionate 200 Mg/Ml [id number] LEROY Administration Oil) Prednisone 60 mg 04/10/25 09:55 04/10/25 10:05 Prednisone 20 Mg Tablet PO 60 mg DAILY@0800 [facility] Administration Radiology Results: ITS Impressions Renal Ultrasound 04/06/25 20:18 IMPRESSION: 1. Normal kidney sizes. No hydronephrosis. Labs Labs: Laboratory Tests 04/10/25 05:30 04/10/25 05:30 Calcium 7.7 L Magnesium 2.2 Total Bilirubin 0.2 AST 19 ALT 15 Alkaline Phosphatase 54 Total Protein 5.8 L Albumin 3.1 L
--- NOTE | 2025-04-10 13:54 | PM.IMPN ---
Progress Note: A&P Assessment and Plan (1) Petechiae: Code(s): R23.3 - Spontaneous ecchymoses Status: Acute (2) LEONEL (acute kidney injury): Code(s): N17.9 - Acute kidney failure, unspecified Status: Acute Plan Possible vasculitis Multiple skin rashes with necrotic centers/petechiae and LEONEL Present in upper and lower extremities HIV negative, c- and p-ANCA negative, Hep B and C negative pathology pending continue Steroids, changed to PO Prednisone 60mg daily LEONEL Cr 1.47 from 2.15 continue above workup stop IVF due to fluid overload US renal no acute changes DVT prophylaxis on Sq Lovenox Subjective Date/time seen: 04/10/25 13:54 Interval history: Comfortable at bedside rash is getting better daily Review of Systems Review of Systems: All other systems were reviewed and negative except as noted in the HPI above. All systems reviewed & are unremarkable except as noted in HPI and below (subjective) Exam Narrative: General: alert and comfortable Eyes: EOMI, PERRLA ENNT External ears normal, Neck is supple, no masses, Respiratory systems: Clear to auscultation Cardiovascular S1, S2, normal rhythm, no murmur, rub, or gallop; no thrill or palpable murmurs on palpation. Gastrointestinal: soft, non-tender, and non-distended abdomen with no masses; BS present Skin: multiple small ulcers bilateral feet, with eythema and tender to touch Musculoskeletal: no abnormality and no tenderness, normal ROM Neurologic: Alert and oriented x3, non focal Mental Status Exam: normal affect Const: General: comfortable and no acute distress Other: obese, A&Ox3 HENMT: Mouth: Yes moist mucous membranes Other: no erythema, lesions, pus of the oral cavity Eyes: Pupils: Equal, round and reactive pupils present Other: no conjunctiva hemorrhage Neck: Neck: supple Lymphatic: lymphadenopathy not noted Resp: Effort & Inspection: normal respiratory effort Auscultation: clear to auscultation bilaterally Cardio: Rate: regular rate Rhythm: regular rhythm GI: Inspection: non-distended Auscultation: normal bowel sounds Skin: Other: petechia of b/l feet, no hemorrhages of the nail beds. painful papules, open ulcers with slough, painful to palpation. no foul oder, pus drainage, or angry erythema. Neuro: Cranial nerves: Yes Equal, round and reactive pupils present Motor exam (neuro): 5/5 motor strength present throughout Extrem: Other: 1+ pitting edema b/l lower extremities Psych: Mental Status: mental status grossly normal Objective Data Vital Signs Vital Signs: Vital Signs - 24 hr 04/09/25 14:00 04/09/25 20:00 04/09/25 22:47 Temperature 98.1 F 98.2 F Pulse Rate 60 60 56 L Respiratory Rate 20 20 18 Blood Pressure 133/82 153/93 H Pulse Oximetry 98 98 98 Oxygen Delivery Room Air Fraction of Inspired Oxygen 04/10/25 06:00 04/10/25 08:00 Temperature 97.5 F L Pulse Rate 50 L Respiratory Rate 16 Blood Pressure 113/63 Pulse Oximetry 95 Oxygen Delivery Room Air Fraction of Inspired Oxygen Intake/Output Intake/Output: Intake & Output 04/07/25 04/08/25 04/09/25 04/10/25 23:59 23:59 23:59 23:59 Intake Total 4290 5160 6040 1080 Output Total 500 Balance 3790 5160 6040 1080 Meds/Results Medications: Active Medications Generic Name Dose Route Start Last Admin Trade Name Freq PRN Reason Stop Dose Admin Hydrocodone Bitart/Acetaminophen 1 tab 04/05/25 16:06 04/10/25 13:26 Hydrocodone/Acetaminophen (*Crx) 10-325 Mg Tablet PO 1 tab Q4H PRN Administration Pain Rated 7-10 Cyclobenzaprine HCl 10 mg 04/05/25 21:29 04/09/25 23:34 Cyclobenzaprine Hcl 10 Mg Tablet PO 10 mg HS PRN Administration Muscle Spasm Dextrose 12.5 gm 04/05/25 14:57 Dextrose 50% 25 Gm/50 Ml Syringe IV PUSH PRN PRN Hypoglycemia Protocol Diphenhydramine HCl 25 mg 04/05/25 21:34 04/09/25 23:34 Diphenhydramine Hcl Inj 50 Mg/Ml Vial IV PUSH 25 mg Q4H PRN Administration Itching Enoxaparin Sodium 40 mg 04/09/25 09:00 04/10/25 09:45 Enoxaparin 40 Mg/0.4 Ml Syringe SUB-Q 40 mg DAILY LEROY Administration Ergocalciferol 1,250 mcg 04/08/25 13:55 04/08/25 14:44 Home Med (Ergocalciferol (Vitamin D2) 50,000 Unit Capsule PO 1,250 mcg WEEKLY LEROY Administration Ferrous Sulfate 325 mg 04/06/25 09:00 04/10/25 09:45 Ferrous Sulfate 325 Mg Tablet PO 325 mg DAILY LEROY Administration Glucagon 1 mg 04/05/25 14:57 Glucagon For Inj 1 Mg Vial IM PRN PRN Hypoglycemia Protocol Glucose 15 gm 04/05/25 14:57 Glucose Oral Gel 15 Gm Of Glucse In 37.5 Gm Tube PO PRN PRN Hypoglycemia Protocol Dextrose 1,000 mls @ 100 mls/hr 04/05/25 14:57 Dextrose 5% 1,000 Ml IVPB PRN PRN Hypoglycemia Protocol Insulin Aspart 4 - 8 units 04/08/25 08:00 04/10/25 12:52 Insulin Aspart (*Bkc) 100 Units/Ml SUB-Q 5 units TIDWM LEROY Administration Protocol Insulin Aspart 2 - 4 units 04/08/25 21:00 04/09/25 20:38 Insulin Aspart (*Bkc) 100 Units/Ml SUB-Q 4 units HS LEROY Administration Protocol Levothyroxine Sodium 25 mcg 04/06/25 06:30 04/10/25 05:23 Levothyroxine Sodium 25 Mcg Tablet PO 25 mcg DAILY@0630 LEROY Administration Morphine Sulfate 2 mg 04/07/25 21:16 04/10/25 06:18 Morphine Sulfate (*Crx) 4 Mg/Ml Inj IV PUSH 2 mg Q2H PRN Administration Breakthrough Pain Rated 7-10 Home Med ( 200 mg 04/08/25 14:00 04/08/25 14:45 Testosterone IM 05/08/25 13:59 50 mg Cypionate 200 Mg/Ml [id number] LEROY Administration Oil) Prednisone 60 mg 04/10/25 09:55 04/10/25 10:05 Prednisone 20 Mg Tablet PO 60 mg DAILY@0800 [facility]ERO[facility] Administration Radiology Results: ITS Impressions Renal Ultrasound 04/06/25 20:18 IMPRESSION: 1. Normal kidney sizes. No hydronephrosis. Labs Labs: Laboratory Results - last 24 hr 04/09/25 04/09/25 04/10/25 17:10 20:19 05:30 WBC 9.5 RBC 4.16 L Hgb 10.7 L Hct 34.8 L MCV 83.7 MCH 25.7 L MCHC 30.7 L RDW 15.7 H Plt Count 210 MPV 9.8 Immature Gran % (Auto) 8.6 H Neut % (Auto) 74.9 H Lymph % (Auto) 12.3 L [place] % (Auto) 4.0 Eos % (Auto) 0.0 Baso % (Auto) 0.2 Lymph # (Auto) 1.16 [place] # (Auto) 0.4 Eos # (Auto) 0.0 Baso # (Auto) 0.0 Abs Immat Gran (auto) 0.81 H Absolute Neuts (auto) 7.1 H Absolute Nucleated RBC 0.020 H Nucleated RBC % 0.2 Sodium 137 Potassium 3.1 L Chloride 103 Carbon Dioxide 26 Anion Gap 8 BUN 46 H Creatinine 1.47 H Estim Creat Clear Calc 90 Estimated GFR 53 L Glucose 278 H POC Capillary Glucose 343 H 371 H Calcium 7.7 L Magnesium 2.2 Total Bilirubin 0.2 AST 19 ALT 15 Alkaline Phosphatase 54 Total Protein 5.8 L Albumin 3.1 L 04/10/25 04/10/25 08:39 12:24 WBC RBC Hgb Hct MCV MCH MCHC RDW Plt Count MPV Immature Gran % (Auto) Neut % (Auto) Lymph % (Auto) [place] % (Auto) Eos % (Auto) Baso % (Auto) Lymph # (Auto) [place] # (Auto) Eos # (Auto) Baso # (Auto) Abs Immat Gran (auto) Absolute Neuts (auto) Absolute Nucleated RBC Nucleated RBC % Sodium Potassium Chloride Carbon Dioxide Anion Gap BUN Creatinine Estim Creat Clear Calc Estimated GFR Glucose POC Capillary Glucose 231 H 277 H Calcium Magnesium Total Bilirubin AST ALT Alkaline Phosphatase Total Protein Albumin
[2025-04-10 14:00] VITALS: BP 128/74; PULSE 68; RESP 20; TEMP 36.6; O2SAT 100
[2025-04-10 22:00] VITALS: BP 144/87; PULSE 63; RESP 18; TEMP 36.5; O2SAT 100
[2025-04-10] MEDS: CYCLOBENZAPRINE HCL 10 MG TABLET PO (22:18)
[2025-04-11] MEDS: HYDROcodone/acetaminophen (*CRX) 10-325 MG TABLET 1 TAB PO (02:32)
[2025-04-11 05:49] LABS: Hematocrit 35.6 % (42.0-52.0); Hemoglobin 10.9 g/dL (14.0-18.0); Immature Granulocyte Percent A 6.6 % (0-0.5); Lymphocytes Absolute Auto 1.51 K/mm3 (0.9-3.2); Mean Corpuscular HGB Conc 30.6 g/dl (32-36); Mean Corpuscular Hemoglobin 25.9 pg (26-34); Mean Corpuscular Volume 84.6 fl (80-100); Nucleated Red Blood Cells Absolute Auto 0.060 K/mm3 (0.0-0.012); Nucleated Red Blood Cells Perc 0.7 % (0.0-0.2); Platelet Count Result 194 k/mm3 (150-375); Red Blood Count 4.21 M/mm3 (4.6-6.20); White Blood Count 9.2 K/mm3 (4.5-10.0)
[2025-04-11 06:00] VITALS: BP 147/87; PULSE 53; RESP 14; TEMP 36.4; O2SAT 99
[2025-04-11 06:09] LABS: Iron 33 ug/dL (49-181)
[2025-04-11 06:19] LABS: Percent Iron Saturation 15 % (20-50)
[2025-04-11] MEDS: LEVOTHYROXINE SODIUM 25 MCG TABLET PO (06:19)
[2025-04-11 06:50] LABS: Ferritin 51.20 ng/mL (17.9-464)
[2025-04-11 07:03] LABS: Alanine Aminotransferase 15 U/L (6-50); Albumin Level 2.9 g/dL (3.5-5.1); Alkaline Phosphatase 77 U/L (38-126); Anion Gap 4 mmol/L (4-12); Aspartate Amino Transferase 18 U/L (17-59); Bilirubin,Total < 0.1 mg/dL (0.2-1.3); Blood Urea Nitrogen 51 mg/dL (9-20); Calcium 7.8 mg/dL (8.4-10.2); Carbon Dioxide 30 mmol/L (22-30); Chloride 103 mmol/L (98-107); Estimated CRCL calculation 82 ml/min; Estimated Glomerular Filt Rate 47; Glucose 277 mg/dL (65-110); Magnesium 2.2 mg/dL (1.6-2.3); Potassium 3.0 mmol/L (3.4-5.0); Sodium 137 mmol/L (137-145); Total Protein 5.4 g/dL (6.3-8.2)
[2025-04-11] MEDS: FERROUS SULFATE 325 MG TABLET PO (09:01)
[2025-04-11] MEDS: ENOXAPARIN 40 MG/0.4 ML SYRINGE SUB-Q (09:01)
[2025-04-11] MEDS: INSULIN ASPART (*BKC) 100 UNITS/ML SUB-Q (09:01)
[2025-04-11 09:26] LABS: Add Urine Microscopic? YES; Appearance Urine Clear (Clear); Glucose Urine UA 1+ mg/dL (Negative); Leukocyte Esterase Ur Negative LEU/UL (Negative); Nitrate Urine Negative (Negative); Non Pathogenic Casts 0-2; Specific Grav Ur 1.017 (1.001-1.035)
--- NOTE | 2025-04-11 10:30 | P.PNNP_ITS ---
Progress Note: A&P Assessment and Plan (1) Acute kidney injury: Code(s): N17.9 - Acute kidney failure, unspecified Status: Acute Assessment and Plan: * slow improvement * as noted by labs on admission * several possible issues: * prerenal factors * infection/early sepsis * high dose NSAID therapy [employer] (possible AIN?) * vasculitis (?) * ARB + diuretic therapy [employer] F[employer] * other(?) * evaluation to date noted: * renal ultrasound normal * urine eosinophils negative * urine electrolytes suggest prerenal azotemia * UA with blood and protein * serological evaluation pending * CPK low * renal function improving with current interventions * follow trend of repeat labs and UOP (2) Lower extremity cellulitis: Code(s): L03.119 - Cellulitis of unspecified part of limb Status: Acute Assessment and Plan: * slow improvement * suggestive by admission exam * local wound care * antibiotics * Infectious Disease following (3) Wound of foot: Code(s): S91.309A - Unspecified open wound, unspecified foot, initial encounter Status: Acute Assessment and Plan: * possible complication of #2 (?) * wound care following * s/p punch skin biopsy by Surgery * follow-up on pathology * continue supportive therapy (4) Rash: Code(s): R21 - Rash and other nonspecific skin eruption Status: Acute Assessment and Plan: * improvement noted * drug reaction versus vasculitits (?) * clinical appearance favors drug related/induced * on steroids * follow clinical appearance Will continue to follow. L Subjective Date/time seen: 04/11/25 10:30 Interval history: Follow-up for acute kidney injury/acute renal failure. Slow and steady improvement noted at this time; renal function/creatinine slightly higher today in comparison to yesterday but continues to make good urine output; LE wounds seems to be healing reasonably well; no apparent distress noted when seen. Exam 2 Narrative: General: large but WD/WN male in NAD Heart: normal S1 and S2; no rub Lungs: clear to auscultation Abdomen: soft, nontender, nondistended, positive bowel sounds Extremities: no cyanosis or clubbing; 1+ edema Skin: bilateral LE venous stasis changes + skin lesions with dressings apparent Objective Data Vital Signs Vital Signs: Vital Signs Temp Pulse Resp BP Pulse Ox O2 Del Method 04/11/25 09:05 Room Air 04/11/25 06:00 97.5 F L 53 L 14 147/87 H 99 04/10/25 22:00 97.7 F 63 18 144/87 H 100 04/10/25 20:00 Room Air 04/10/25 14:00 97.9 F 68 20 128/74 100 Intake/Output Intake/Output: Intake & Output 04/08/25 04/09/25 04/10/25 04/11/25 23:59 23:59 23:59 23:59 Intake Total 5160 6040 3640 1840 Balance 5160 6040 3640 1840 Meds/Results Medications: Active Medications Generic Name Dose Route Start Last Admin Trade Name Freq PRN Reason Stop Dose Admin Hydrocodone Bitart/Acetaminophen 1 tab 04/05/25 16:06 04/11/25 02:32 Hydrocodone/Acetaminophen (*Crx) 10-325 Mg Tablet PO 1 tab Q4H PRN Administration Pain Rated 7-10 Cyclobenzaprine HCl 10 mg 04/05/25 21:29 04/10/25 22:18 Cyclobenzaprine Hcl 10 Mg Tablet PO 10 mg HS PRN Administration Muscle Spasm Dextrose 12.5 gm 04/05/25 14:57 Dextrose 50% 25 Gm/50 Ml Syringe IV PUSH PRN PRN Hypoglycemia Protocol Diphenhydramine HCl 25 mg 04/05/25 21:34 04/10/25 22:18 Diphenhydramine Hcl Inj 50 Mg/Ml Vial IV PUSH 25 mg Q4H PRN Administration Itching Enoxaparin Sodium 40 mg 04/09/25 09:00 04/11/25 09:01 Enoxaparin 40 Mg/0.4 Ml Syringe SUB-Q 40 mg DAILY LEROY Administration Ergocalciferol 1,250 mcg 04/08/25 13:55 04/08/25 14:44 Home Med (Ergocalciferol (Vitamin D2) 50,000 Unit Capsule PO 1,250 mcg WEEKLY LEROY Administration Ferrous Sulfate 325 mg 04/06/25 09:00 04/11/25 09:01 Ferrous Sulfate 325 Mg Tablet PO 325 mg DAILY LEROY Administration Glucagon 1 mg 04/05/25 14:57 Glucagon For Inj 1 Mg Vial IM PRN PRN Hypoglycemia Protocol Glucose 15 gm 04/05/25 14:57 Glucose Oral Gel 15 Gm Of Glucse In 37.5 Gm Tube PO PRN PRN Hypoglycemia Protocol Dextrose 1,000 mls @ 100 mls/hr 04/05/25 14:57 Dextrose 5% 1,000 Ml IVPB PRN PRN Hypoglycemia Protocol Insulin Aspart 4 - 8 units 04/08/25 08:00 04/11/25 09:01 Insulin Aspart (*Bkc) 100 Units/Ml SUB-Q 4 units TIDWM LEROY Administration Protocol Insulin Aspart 2 - 4 units 04/08/25 21:00 04/10/25 22:23 Insulin Aspart (*Bkc) 100 Units/Ml SUB-Q 2 units HS LEROY Administration Protocol Levothyroxine Sodium 25 mcg 04/06/25 06:30 04/11/25 06:19 Levothyroxine Sodium 25 Mcg Tablet PO 25 mcg DAILY@0630 [facility] Administration Morphine Sulfate 2 mg 04/07/25 21:16 04/10/25 14:54 Morphine Sulfate (*Crx) 4 Mg/Ml Inj IV PUSH 2 mg Q2H PRN Administration Breakthrough Pain Rated 7-10 Home Med ( 200 mg 04/08/25 14:00 04/08/25 14:45 Testosterone IM 05/08/25 13:59 50 mg Cypionate 200 Mg/Ml [id number] [facility] Administration Oil) Prednisone 60 mg 04/10/25 09:55 04/11/25 09:01 Prednisone 20 Mg Tablet PO 60 mg DAILY@0800 [facility] Administration Radiology Results: ITS Impressions Renal Ultrasound 04/06/25 20:18 IMPRESSION: 1. Normal kidney sizes. No hydronephrosis. Labs Labs: Laboratory Tests 04/11/25 05:26 04/11/25 05:26 Lactic Acid 1.3 Calcium 7.8 L Magnesium 2.2 Iron 33 L TIBC 213 L % Saturation 15 L Ferritin 51.20 Total Bilirubin < 0.1 L AST 18 ALT 15 Alkaline Phosphatase 77 Total Protein 5.4 L Albumin 2.9 L
--- NOTE | 2025-04-11 13:05 | PM.DS ---
DS: Admitting Diagnosis Discharge Date 04/11/2025 Admitting Diagnosis Bilateral feet swelling and redness DS: Discharge Diagnosis Discharge Diagnosis (1) Dermatitis: Code(s): L30.9 - Dermatitis, unspecified Status: Acute DS: Summary Hospital Course Hospital Course: Per admitting provider: 40 yo male with PMH of pancreatitis, steroid induced DM, afib and AIHA who presented to the ER on account bilateral leg pain and ulcer with redness. Patient noted that he had flea bites about a week ago, for which he was given topical meds for by his wound care doctor, however on friday he noticed redness, bilateral feet pain and blebs, which worsened prompting presenting to the ER. Denies any vomiting, abd pain, diarrhea, chest pain, SOB, and no falls or focal weakness. Er eval vital signs stabvel adn within normal limits, WBC 15.2, Cr 2.15, BG 184, A1c 5.8, LA 2.2, Feet xray no acute changes. patien was started on Cefepime/Flagyl and Vanc. Patient was initially managed as Cellulitis and started on Cefepime, Flagyl and Vanc, however given the nature of rash Vasculitis was suspected and patient was placed on Steroids and Skin biopsy obtained. Today, pathology showed Dermatitis, patient thus discharged on oen more day of Prednisone 50mg, and 5 days Doxycycline to prevent skin infection. Also managed for LEONEL, Cr on admission was 2.15, Nephrology was consulted. Cr 1.62 today and i discussed with Nephrology and he agreed with repeat BMP in 3 days and have patient folow up with PCP, and if renal function is worse he will follow up with Him. Also Chlorthalidone and Losartan were held, and i discharged patient on amlodipine 5mg. Continue follow up with PCP. F/u with Nephrology as instucted Time Spent with Patient Time attestation: Total time spent providing and/or coordinating discharge services: DS: Data Data Completed and Pending Completed studies during hospitalization: Pending at discharge 04/07/25 10:20 Surgical [PTH] Routine Labs on day of discharge: Labs from last 24 hours 04/11/25 04/11/25 04/11/25 12:10 09:16 08:25 WBC RBC Hgb Hct MCV MCH MCHC RDW Plt Count MPV Immature Gran % (Auto) Neut % (Auto) Lymph % (Auto) [place] % (Auto) Eos % (Auto) Baso % (Auto) Lymph # (Auto) [place] # (Auto) Eos # (Auto) Baso # (Auto) Abs Immat Gran (auto) Absolute Neuts (auto) Absolute Nucleated RBC Nucleated RBC % Sodium Potassium Chloride Carbon Dioxide Anion Gap BUN Creatinine Estim Creat Clear Calc Estimated GFR Glucose POC Capillary Glucose 177 H Lactic Acid Calcium Magnesium Iron TIBC % Saturation Ferritin Total Bilirubin AST ALT Alkaline Phosphatase Total Protein Albumin Urine Color Yellow Urine Appearance Clear Urine pH 6.0 Ur Specific [place] 1.017 Urine Protein 2+ H Urine Glucose (UA) 1+ H Urine Ketones Negative Ur Blood (Man) 3+ H Urine Nitrate Negative Urine Bilirubin Negative Urine Urobilinogen 0.2 Ur Leukocyte Esterase Negative Urine RBC 21-50 H Urine WBC 0-5 Ur Squamous Epith Cells None seen Urine Bacteria None seen Urine Casts 0-2 Cryoglobulin Qualit Pending Double Strand DNA Ab Pending Glomerular Base Memb Ab Pending C1q Level Pending Complement C4 04/11/25 04/11/25 04/11/25 08:23 05:26 05:23 WBC 9.2 RBC 4.21 L Hgb 10.9 L Hct 35.6 L MCV 84.6 MCH 25.9 L MCHC 30.6 L RDW 16.1 H Plt Count 194 MPV 10.0 Immature Gran % (Auto) 6.6 H Neut % (Auto) 67.6 Lymph % (Auto) 16.5 L [place] % (Auto) 8.9 H Eos % (Auto) 0.1 Baso % (Auto) 0.3 Lymph # (Auto) 1.51 [place] # (Auto) 0.8 H Eos # (Auto) 0.0 Baso # (Auto) 0.0 Abs Immat Gran (auto) 0.60 H Absolute Neuts (auto) 6.2 Absolute Nucleated RBC 0.060 H Nucleated RBC % 0.7 H Sodium 137 Potassium 3.0 L Chloride 103 Carbon Dioxide 30 Anion Gap 4 BUN 51 H Creatinine 1.62 H Estim Creat Clear Calc 82 Estimated GFR 47 L Glucose 277 H POC Capillary Glucose 208 H Lactic Acid 1.3 Calcium 7.8 L Magnesium 2.2 Iron 33 L TIBC 213 L % Saturation 15 L Ferritin 51.20 Total Bilirubin < 0.1 L AST 18 ALT 15 Alkaline Phosphatase 77 Total Protein 5.4 L Albumin 2.9 L Urine Color Urine Appearance Urine pH Ur Specific [place] Urine Protein Urine Glucose (UA) Urine Ketones Ur Blood (Man) Urine Nitrate Urine Bilirubin Urine Urobilinogen Ur Leukocyte Esterase Urine RBC Urine WBC Ur Squamous Epith Cells Urine Bacteria Urine Casts Cryoglobulin Qualit Double Strand DNA Ab Glomerular Base Memb Ab C1q Level Complement C4 17.2 04/10/25 04/10/25 21:12 17:10 WBC RBC Hgb Hct MCV MCH MCHC RDW Plt Count MPV Immature Gran % (Auto) Neut % (Auto) Lymph % (Auto) [place] % (Auto) Eos % (Auto) Baso % (Auto) Lymph # (Auto) [place] # (Auto) Eos # (Auto) Baso # (Auto) Abs Immat Gran (auto) Absolute Neuts (auto) Absolute Nucleated RBC Nucleated RBC % Sodium Potassium Chloride Carbon Dioxide Anion Gap BUN Creatinine Estim Creat Clear Calc Estimated GFR Glucose POC Capillary Glucose 251 H 237 H Lactic Acid Calcium Magnesium Iron TIBC % Saturation Ferritin Total Bilirubin AST ALT Alkaline Phosphatase Total Protein Albumin Urine Color Urine Appearance Urine pH Ur Specific [place] Urine Protein Urine Glucose (UA) Urine Ketones Ur Blood (Man) Urine Nitrate Urine Bilirubin Urine Urobilinogen Ur Leukocyte Esterase Urine RBC Urine WBC Ur Squamous Epith Cells Urine Bacteria Urine Casts Cryoglobulin Qualit Double Strand DNA Ab Glomerular Base Memb Ab C1q Level Complement C4 Preliminary micro results at discharge 04/05/25 14:48 Blood Culture - Preliminary Blood 04/05/25 14:53 Blood Culture - Preliminary Blood Discharge Plan Discharge Attending physician on discharge: Grace Costa Consulting providers: Michael Townsend; Eliezer Wolfe; Laura Stein Discharging Clinician: Grace Costa Anticipated Discharge Date/Time: 04/11/25 12:41 Patient Disposition: Home Activity: as tolerated Diet: as tolerated and regular Discharge Instructions: Sutures to dorsal aspect of left foot should be removed 7-10 days from procedure date. This can be done by hospitalist or general surgery team if still inpatient at this time. If discharged home, please schedule an appointment with your PCP to have sutures removed. Patient Instructions: Antibiotic Form Patient Language: Greek Stand Alone Forms: General Discharge Information Follow-up/Referrals: Laura Stein MD [Physician, Nephrology] Referral Note: F/u with Nephrology as instructed Josh,MD Ray [Primary Care Provider, Unknown] Referral Note: F/u with PCP in 3-5 days Discharge Medications: New amlodipine 5 mg tablet 5 mg PO DAILY 30 Days Qty: 30 0RF doxycycline hyclate 100 mg tablet,delayed release (DR/EC) 100 mg PO BID 5 Days Qty: 10 0RF prednisone 50 mg tablet 50 mg PO DAILY 1 Days Qty: 1 0RF Continued ferrous sulfate [FeroSul] 325 mg (65 mg iron) tablet 325 mg PO DAILY testosterone cypionate 200 mg/mL oil 200 mg IM .biweekly levothyroxine 25 mcg tablet 25 mcg PO DAILY@0630 ergocalciferol (vitamin D2) 50,000 unit Tablet 50,000 unit PO WEEKLY Rx Instructions: Takes med on friday levocetirizine [Allergy Relief (levocetirizin)] 5 mg Tablet 5 mg PO DAILY cyclobenzaprine 5 mg tablet 10 mg PO HS PRN (Reason: muscle spasm) Discontinued chlorthalidone 25 mg tablet 25 mg PO DAILY losartan 25 mg tablet 25 mg PO BID Other Ambulatory Orders: Basic Metabolic Panel (Routine) Timeframe: 20250414 Location: Determined by Patient Ordered By: Grace Costa Date of admission: 04/07/25 10:31 Primary Care Provider: Josh,Ray Admitting Provider: Dunia Chadwick Attending physician on admission: Dunia Chadwick Condition: Stable
[2025-04-11 15:05] VITALS: BP 153/87; PULSE 60; RESP 18; TEMP 35.8; O2SAT 97
--- NOTE | 2025-04-11 19:16 | WPDINFPN2 ---
Progress Note: A&P Assessment and Plan (1) Lower extremity cellulitis: Code(s): L03.119 - Cellulitis of unspecified part of limb Status: Acute (2) Wound of foot: Code(s): S91.309A - Unspecified open wound, unspecified foot, initial encounter Status: Acute (3) Morbid obesity with body mass index (BMI) greater than or equal to 50: Code(s): E66.01 - Morbid (severe) obesity due to excess calories Status: Acute (4) Drug-induced maculopapular rash: Code(s): L27.0 - Generalized skin eruption due to drugs and medicaments taken internally Status: Acute Plan # Bilateral lower extremity lesions related to recent flea infestation exposure and subsequent excoriation wounds. -- lesions may represent inflammation from original flea bites with additional self-inflicted scratch excoriation. Risk of secondary infection but overall not classic for extensive cellulitis. -- rule out vasculitis. -- however, he did present with some degree of leukocytosis which has improved on antibiotics. Antibiotics have since been discontinued. -- overall lesion improvement on steroids. # Obesity with bilateral lower extremity acute on chronic edema and early stasis dermatitis. # Acute maculopapular reaction to upper extremity and torso suggestive of drug reaction. Suspect cefepime. Plan: --OK for home off abx. Reviewed labs. ANCA negative (had previous ANCA w/u 5 years ago; pt can't recall reason) -- await lower extremity skin lesion biopsy. -- avoid cephalosporins. Avoid Betadine. Patient was seen via video telehealth consultation with the assistance of staff. Chart, data, and patient independently reviewed. Patient was located at [facility] while I was located in my [place] office. Received verbal consent from patient. Subjective Date/time seen: 04/11/25 19:16 Interval history: no feve.r wounds improving. no new rash. Exam Narrative: He is awake and alert nontoxic. Obesity. Directed exam significant for bilateral lower extremity acute on chronic edema. Has evidence of patchy primarily pretibial hyper pigmentation suggestive of chronic stasis dermatitis. Areas of bilateral thighs, further lower extremity, and feet with annular wounds and some with dried blood. Patchy surrounding erythema. Lesions are showing improvement. Skin also with bilateral upper extremity maculopapular eruption. Also seen to less degree on torso. Rash is lightening. Status post lower extremity skin lesion biopsies. Objective Data Vital Signs Vital Signs: Vital Signs - 24 hr 04/10/25 20:00 04/10/25 22:00 04/11/25 06:00 Temperature 36.5 C 36.4 C L Pulse Rate 63 53 L Respiratory Rate 18 14 Blood Pressure 144/87 H 147/87 H Pulse Oximetry 100 99 Oxygen Delivery Room Air 04/11/25 09:05 04/11/25 15:05 Temperature 35.8 C L Pulse Rate 60 Respiratory Rate 18 Blood Pressure 153/87 H Pulse Oximetry 97 Oxygen Delivery Room Air Intake/Output Intake/Output: Intake & Output 04/08/25 04/09/25 04/10/25 04/11/25 23:59 23:59 23:59 23:59 Intake Total 5160 6040 3640 1840 Balance 5160 6040 3640 1840 Meds/Results Radiology Results: ITS Impressions Renal Ultrasound 04/06/25 20:18 IMPRESSION: 1. Normal kidney sizes. No hydronephrosis. Labs Labs: Laboratory Results - last 24 hr 04/10/25 04/11/25 04/11/25 21:12 05:23 05:26 WBC 9.2 RBC 4.21 L Hgb 10.9 L Hct 35.6 L MCV 84.6 MCH 25.9 L MCHC 30.6 L RDW 16.1 H Plt Count 194 MPV 10.0 Immature Gran % (Auto) 6.6 H Neut % (Auto) 67.6 Lymph % (Auto) 16.5 L [place] % (Auto) 8.9 H Eos % (Auto) 0.1 Baso % (Auto) 0.3 Lymph # (Auto) 1.51 [place] # (Auto) 0.8 H Eos # (Auto) 0.0 Baso # (Auto) 0.0 Abs Immat Gran (auto) 0.60 H Absolute Neuts (auto) 6.2 Absolute Nucleated RBC 0.060 H Nucleated RBC % 0.7 H Sodium 137 Potassium 3.0 L Chloride 103 Carbon Dioxide 30 Anion Gap 4 BUN 51 H Creatinine 1.62 H Estim Creat Clear Calc 82 Estimated GFR 47 L Glucose 277 H POC Capillary Glucose 251 H Lactic Acid 1.3 Calcium 7.8 L Magnesium 2.2 Iron 33 L TIBC 213 L % Saturation 15 L Ferritin 51.20 Total Bilirubin < 0.1 L AST 18 ALT 15 Alkaline Phosphatase 77 Total Protein 5.4 L Albumin 2.9 L Urine Color Urine Appearance Urine pH Ur Specific [place] Urine Protein Urine Glucose (UA) Urine Ketones Ur Blood (Man) Urine Nitrate Urine Bilirubin Urine Urobilinogen Ur Leukocyte Esterase Urine RBC Urine WBC Ur Squamous Epith Cells Urine Bacteria Urine Casts Complement C4 17.2 04/11/25 04/11/25 04/11/25 08:23 09:16 12:10 WBC RBC Hgb Hct MCV MCH MCHC RDW Plt Count MPV Immature Gran % (Auto) Neut % (Auto) Lymph % (Auto) [place] % (Auto) Eos % (Auto) Baso % (Auto) Lymph # (Auto) [place] # (Auto) Eos # (Auto) Baso # (Auto) Abs Immat Gran (auto) Absolute Neuts (auto) Absolute Nucleated RBC Nucleated RBC % Sodium Potassium Chloride Carbon Dioxide Anion Gap BUN Creatinine Estim Creat Clear Calc Estimated GFR Glucose POC Capillary Glucose 208 H 177 H Lactic Acid Calcium Magnesium Iron TIBC % Saturation Ferritin Total Bilirubin AST ALT Alkaline Phosphatase Total Protein Albumin Urine Color Yellow Urine Appearance Clear Urine pH 6.0 Ur Specific [place] 1.017 Urine Protein 2+ H Urine Glucose (UA) 1+ H Urine Ketones Negative Ur Blood (Man) 3+ H Urine Nitrate Negative Urine Bilirubin Negative Urine Urobilinogen 0.2 Ur Leukocyte Esterase Negative Urine RBC 21-50 H Urine WBC 0-5 Ur Squamous Epith Cells None seen Urine Bacteria None seen Urine Casts 0-2 Complement C4
[2025-04-13 19:08] LABS: Anti-GBM Antibodies <0.2 units (0.0-0.9)
[2025-04-20 02:15] LABS: Complement C1q, Quantitative 13.3 mg/dL (10.2-20.3)
== END 2025-04-11 15:45 | disposition home or self-care (01) | DRG 607 ==
LOC: ANHED 05:37 → ANH3MED 07:29
PROVIDERS: General Practice; Internal Medicine Infectious Disease; Admitting Provider Internal Medicine; Emergency Provider Student in an Organized Health Care Education/Training Program; PCP Family Medicine; Visit Provider Internal Medicine
DX: L30.9 Dermatitis, unspecified (principal); N17.9 Acute kidney failure, unspecified; I48.20 Chronic atrial fibrillation, unspecified; Z68.43 Body mass index [BMI] 50.0-59.9, adult; I10 Essential (primary) hypertension; E87.6 Hypokalemia; E03.9 Hypothyroidism, unspecified; E78.1 Pure hyperglyceridemia; E09.9 Drug or chemical induced diabetes mellitus without complications; E66.813 Obesity, class 3; L27.0 Generalized skin eruption due to drugs and medicaments taken internally; T36.1X5A Adverse effect of cephalosporins and other beta-lactam antibiotics, initial encounter; T38.0X5S Adverse effect of glucocorticoids and synthetic analogues, sequela; Z87.891 Personal history of nicotine dependence
CPT/HCPCS: 36415; 73630; 76770; 80053; 80069; 80074; 81001; 82436; 82550; 82570; 82595; 82728; 82948; 83036; 83540; 83550; 83605; 83735; 84145; 84300; 85025; 85610; 85652; 85730; 85999; 86037; 86140; 86160; 86225; 86364; 86703; 87040; 87070; 87075; 87641; 88305; 96361; 96365; 96375; 99212; 99285; A9270; G0378; G0432; G0463; J0692; J1200; J1650; J1815; J1836; J2270; J2919; J3373; J7030; J7512

== ENCOUNTER 2025-06-14 22:46 | Observation (INO) | payer BC, SELFPAY ==
--- NOTE | ~2025-06-14 | US_ITS ---
US renal BI 06/15/2025 12:51 Procedure: Realtime transabdominal ultrasound of the kidneys and bladder. Indication: Decreased renal function. Comparison: No prior studies for comparison. Findings: Renal echotexture is normal bilaterally without hydronephrosis, contour deforming mass or renal calculus. The right kidney measures 11 cm and left kidney measures 11.1 cm. Bladder within normal limits. Impression: 1: Unremarkable renal ultrasound. No stones, masses or hydronephrosis. Reviewed, dictated and finalized at location [facility]. [facility] Impression: 1: Unremarkable renal ultrasound. No stones, masses or hydronephrosis.
[2025-06-14 22:55] VITALS: BP 154/94; PULSE 100; RESP 18; TEMP 36.9; O2SAT 98
[2025-06-15] VITALS (22 sets, daily range): BP systolic 98–135; BP diastolic 62–90; PULSE 66–85; RESP 14–26; TEMP 36–36.6; O2SAT 94–100; BMI 52.8
--- OUTSIDE RECORDS SUMMARY | 2025-06-15 01:21 | XMS_ITS | Continuity of Care Document ---
Author Organization MD - [facility], [facility] Address [address] [place] [address] Care Team Providers Care Room Designer Name Role Phone RAY MORENO Primary Care Provider [phone] Assessment Encounter Date Assessment Date Assessment LastModified by Organization Details LastModified Time 06/06/2025 06/06/2025 40 yo M with - MALE HYPOGONADISM, new - HYPOTHYROIDISM, new - ANEMIA, mild - HTN - ELEVATED LFTs - LUMBAR [...] H/O VENTRAL & SUPRAUMBILICAL HERNIA - H/O CARRILLO'S PALSY, Lt face HbA1c: 7.1(11/03/19) - 5.4(05/11/20) - 5.8(09/10/21) - 5.5(12/18/22) - 5.9(02/17/25) Annual labs, T-level: 02/17/25. Annual labs: 12/18/22. X-ray L-spine: 12/13/22. X-ray pelvis & Rt hip: 12/13/22. Annual labs: 09/10/21. CT A&P wo & US bladder: 2/11/22. UA, Urine cytology: 05/11/20. Annual labs, OLGA LIDIA, HIV: 11/03/19. CT A&P w: 09/17/19. CXR: 08/21/19. US renal: 08/15/19. CT A&P wo: 08/15/19. Wt: 363(12/31/22) - 366(02/25/23) - 346(06/17/23) [Pt stopped] D/w pt about his findings, recent labs & imagines and further plan of care. All meds verified with pt. Meds as directed. Cont heat pack as directed prn. Diet and exercise explained in detail. Educated about different options for him. BP diary education given. Cont f/u with Neuro as per schedule. Cont f/u with Ophtho as per schedule. Cont f/u with Pain clinic as per schedule. Cont f/u with Ortho as per schedule. Cont f/u with Surg as per schedule. Cont f/u with Uro as per schedule. Cont f/u with Hemat at [place] as per schedule. Cont f/u with Cardio at [place] as per schedule. Cont f/u with Bariatric surgeon at [facility] as per schedule. Advised to refer to Endo; but pt declined. Advised to refer for sleep study; but pt declined. HM: Flu - Pt declined. Tdap - 09/16/19. Gardasil - 05/16/20, 09/10/21, 12/18/22. F/u in 3 months. T-level, TSH, A1c in 09/15. Annual labs in 02/12. [email or web address] Not available 06/06/2025 12:12:37 Plan of Treatment Reminders Order Date Submit Date Provider Last Modified By Organization Details Last Modified Time Details Appointments Follow Up 15 2025 09:00A Latanya Moreno MD Not available Not available Not available Lab TSH, serum, reflex free T4 2024 026 [email or web address] [facility] ([facility]), [address] [place], [address], 06/06/2025 11:58:44 testoster one, free + total, serum [address] ([facility]), [address] [place], [address], 06/06/2025 11:58:44 HbA1c (hemoglob in A1c), blood [address] ([facility]), [address] [place], [address], 06/06/2025 11:58:44 Referral None recorded. Procedures None recorded. Surgeries None recorded. Imaging None recorded. Medication Orders levothyro xine 25 mcg tablet 2024 [facility][id number], [address] [facility], [place], [place], [id number], 06/06/2025 11:59:30 Contrave 8 mg-90 mg tablet,ex tended release 2024 [facility], [address], [place], [id number], 06/06/2025 19:16:08 testoster one cypionate 200 mg/mL intramusc ular oil 2024 [facility] #[id number], [address] [facility], [place], [place], [id number], 06/06/2025 11:59:41 ferrous sulfate 325 mg (65 mg iron) tablet 2024 [facility] #[id number], [address], [place], [id number], 06/06/2025 11:59:28 ergocalci ferol (vitamin D2) 1,250 mcg (50,000 unit) capsule 2024 [facility] #[id number], [address] [facility], [place], [place], [id number], 06/06/2025 11:59:44 Patient TargetsNo targets recorded. Patient Instructions Encounter Date Encounter Id Patient Instructions Last Modified By Organization Details Last Modified Time 06/06/2025 [id number] high blood pressure: care instructions [email or web address] Not available 06/06/2025 11:58:44 dash diet: care instructions [email or web address] Not available 06/06/2025 11:58:44 learning about obesity [email or web address] Not available 06/06/2025 11:58:44 Starting a Weight-Loss Plan: Care Instructions [email or web address] Not available 06/06/2025 11:58:44 body mass index: care instructions [email or web address] Not available 06/06/2025 11:58:44 Reason for Referral None Reported. Results Created Date Observation Date Name Description Value Unit Range Abnormal Flag Note LastModifiedBy Organization Detail LastModifiedTime 06/03/2006/03/2025 CBC/C OMPLE TE BLD COUNT W/DIF F white blood cells 7.5 x10'3 /uL 4.2-10 .8 Not Available [facility] (Lab) [address] [place], [address], 06/03/2025 12:26:43 06/03/20 25 06/03/2025 CBC/C OMPLE TE BLD COUNT W/DIF F red blood cells 5.24 x10'6 /uL 4.10-5 .80 Not Available [facility] (Lab) [address] [place], [address], 06/03/2025 12:26:43 06/03/20 25 06/03/2025 CBC/C OMPLE TE BLD COUNT W/DIF F hemoglobin 13.9 g/dL 13.2-1 7.0 Not Available [facility] (Lab) [address] [place], [address], 06/03/2025 12:26:43 06/03/20 25 06/03/2025 CBC/C OMPLE TE BLD COUNT W/DIF F hematocrit 44.7 % 39.3-5 0.0 Not Available [facility] (Lab) [address] [place], [address], 06/03/2025 12:26:43 06/03/20 25 06/03/2025 CBC/C OMPLE TE BLD COUNT W/DIF F mean red cell volume 85.3 fL 80.0-9 7.0 Not Available [facility] (Lab) [address] [place], [address], 06/03/2025 12:26:43 06/03/20 25 06/03/2025 CBC/C OMPLE TE BLD COUNT W/DIF F mean red cell hemoglobin 26.5 pg 27.0-3 3.0 low Not Available [facility] (Lab) [address] [place], [address], 06/03/2025 12:26:43 06/03/20 25 06/03/2025 CBC/C OMPLE TE BLD COUNT W/DIF F mean RBC HGB concentratio n 31.1 g/dL 31.0-3 6.0 Not Available [facility] (Lab) [address] [place], [address], 06/03/2025 12:26:43 06/03/20 25 06/03/2025 CBC/C OMPLE TE BLD COUNT W/DIF F red cell distribution width 15.9 % 11.8-1 5.5 high Not Available [facility] (Lab) [address] [place], [address], 06/03/2025 12:26:43 06/03/20 25 06/03/2025 CBC/C OMPLE TE BLD COUNT W/DIF F platelets 232 x10'3 /uL 150-40 0 Not Available [facility] (Lab) [address] [place], [address], 06/03/2025 12:26:43 06/03/20 25 06/03/2025 CBC/C OMPLE TE BLD COUNT W/DIF F mean platelet volume 10.6 fL 9.0-12 .4 Not Available [facility] (Lab) [address] [place], [address], 06/03/2025 12:26:43 06/03/20 25 06/03/2025 CBC/C OMPLE TE BLD COUNT W/DIF F neutrophils 77.7 % 39.0-7 2.0 high Not Available [facility] (Lab) [address] [place], [address], 06/03/2025 12:26:43 06/03/20 25 06/03/2025 CBC/C OMPLE TE BLD COUNT W/DIF F lymphocytes 14.2 % 16.0-4 7.0 low Not Available [facility] (Lab) [address] [place], [address], 06/03/2025 12:26:43 06/03/20 25 06/03/2025 CBC/C OMPLE TE BLD COUNT W/DIF F monocytes 5.5 % 5.0-12 .0 Not Available [facility] (Lab) [address] [place], [address], 06/03/2025 12:26:43 06/03/20 25 06/03/2025 CBC/C OMPLE TE BLD COUNT W/DIF F eosinophils 1.5 % 1.0-7. 0 Not Available [facility] (Lab) [address] [place], [address], 06/03/2025 12:26:43 06/03/20 25 06/03/2025 CBC/C OMPLE TE BLD COUNT W/DIF F basophils 0.7 % 0.0-2. 0 Not Available [facility] (Lab) [address] [place], [address], 06/03/2025 12:26:43 06/03/20 25 06/03/2025 CBC/C OMPLE TE BLD COUNT W/DIF F immature granulocytes 0.4 % 0.00-0 .50 Not Available [facility] (Lab) [address] [place], [address], 06/03/2025 12:26:43 06/03/20 25 06/03/2025 CBC/C OMPLE TE BLD COUNT W/DIF F neutrophils, absolute count 5.85 x10'3 /uL 1.5-8. 0 Not Available [facility] (Lab) [address] [place], [address], 06/03/2025 12:26:43 06/03/20 25 06/03/2025 CBC/C OMPLE TE BLD COUNT W/DIF F lymphocytes, absolute count 1.07 x10'3 /uL 1.07-3 .43 Not Available [facility] (Lab) [address] [place], [address], 06/03/2025 12:26:43 06/03/20 25 06/03/2025 CBC/C OMPLE TE BLD COUNT W/DIF F monocytes, absolute count 0.41 x10'3 /uL 0.29-0 .99 Not Available [facility] (Lab) [address] [place], [address], 06/03/2025 12:26:43 06/03/20 25 06/03/2025 CBC/C OMPLE TE BLD COUNT W/DIF F eosinophils, absolute count 0.11 x10'3 /uL 0.02-0 .53 Not Available [facility] (Lab) [address] [place], [address], 06/03/2025 12:26:43 06/03/20 25 06/03/2025 CBC/C OMPLE TE BLD COUNT W/DIF F basophils, absolute count 0.05 x10'3 /uL 0.01-0 .08 Not Available [facility] (Lab) [address] [place], [address], 06/03/2025 12:26:43 11/14/06/03/2025 CBC/C OMPLE TE BLD COUNT W/DIF F immature granulocytes ,absolute 0.03 x10'3 /uL 0.00-0 .05 Not Available [facility] (Lab) [address] [place], [address], 06/03/2025 12:26:43 06/03/20 25 06/03/2025 CBC/C OMPLE TE BLD COUNT W/DIF F nucleated red blood cells 0.0 % -0 Not Available [facility] (Lab) [address] [place], [address], 06/03/2025 12:26:43 06/03/20 25 06/03/2025 CBC/C OMPLE TE BLD COUNT W/DIF F NRBC# 0.00 x10'3 /uL Not Available [facility] (Lab) [address] [place], [address], 06/03/2025 12:26:43 06/03/20 25 06/03/2025 TSH thyroid-stim ulating hormone 2.400 uIU/m L 0.465- 4.680 Not Available [facility] (Lab) [address] [place], [address], 06/03/2025 13:06:33 06/03/20 25 06/03/2025 T4 FREE free T4 1.33 NG/dL 0.78-2 .19 Not Available [facility] (Lab) [address] [place], [address], 06/03/2025 13:06:49 Result Notes None recorded. Problems Name Problem SNOMED Code Status Onset Date Resolution Date Notes Provider Name and Address Organization Details Recorded Time Morbid obesity 298888507 Active 2019 Ray Moreno MD [address] [facility], [facility] [address], [place], [address] , [facility] [employer] 5 17:50:52 Ex-smoker 0529691 Active 2019 Not Available [employer] 3 07:29:44 History of sepsis 0393787676594 00 Active 2019 Not Available [employer] 3 07:29:40 Acute kidney injury 29798784 Active 2019 Not Available [employer] 3 07:29:40 Persistent insomnia 493148533 Active 2019 Not Available [facility] 3 07:29:40 Steatotic liver disease 602287897 Active 2019 Not Available [employer] 3 07:29:40 Anemia 475963119 Active 2019 Ray Moreno MD [address] [facility], [address] [place] [address], [place], [address] , [facility] [employer] [facility] 5 17:04:16 Peripheral edema 800530865 Active 2019 Not Available [facility] 3 07:29:41 Cellulitis of lower limb 263331212 Active 2019 Not Available [facility] 3 07:29:43 Candidiasi s of mouth 59994851 Active 2019 Not Available [facility] 3 07:29:44 Umbilical hernia 168399037 Active 2019 Not Available [facility] 3 07:29:42 Uncontroll ed type 2 diabetes mellitus 425423314 Active 2019 Not Available [facility] 3 07:29:43 Microscopi c hematuria 470004638 Active 2019 Not Available [facility] 3 07:29:41 Vitamin D deficiency 26770724 Active 2019 Not Available [facility] 3 07:29:42 Autoimmune hemolytic anemia 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 Active 2019 Not Available [employer] 3 07:29:43 History of atrial fibrillati on 679268249 Active 2019 Not Available [facility] 3 07:29:42 Type 2 diabetes mellitus without complicati on 403840236 Active 2019 Not Available [facility] 3 07:29:42 History of diabetes mellitus 070401970 Active 2019 Not Available [facility] 3 07:29:40 Increased frequency of urination 943110062 Active 2021 Not Available [facility] 3 07:29:40 Kole hematuria 276856252 Active 2021 Not Available [facility] 3 07:29:41 Blood in urine 77264357 Active 2021 Not Available [facility] 3 07:29:42 Lower urinary tract symptoms due to benign prostatic hypertroph y 7851591659686 1 Active 2021 Not Available [facility] 3 07:29:41 Disorder of prostate 75773411 Active 2021 Not Available [facility] 3 07:29:42 Active or passive immunizati on Active 2021 Not Available [facility] 3 07:29:40 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 Not Available [facility] 3 07:29:41 Adult health examinatio n Active 2021 Not Available [facility] 3 07:29:41 Urethral stricture 19171591 Active 2021 Not Available [facility] 3 07:29:44 Pain in right sacroiliac joint 4035257867624 9107 Active 2021 Not Available [facility] 3 07:29:40 Hypothyroi dism 62330761 Active 2021 Not Available [facility] 3 07:29:43 Swelling of bilateral lower limbs 858116333 Active 2021 Not Available [facility] 3 07:29:44 Acute urinary tract infection 435924739 Active 2021 Not Available [facility] 3 07:29:43 Bronchitis 72440585 Active 2021 Not Available [facility] 3 07:29:42 Cough 48370574 Active 2021 Not Available [facility] 3 07:29:43 Nasal congestion 41853693 Active 2022 Ray Moreno MD [address], [place], [address] , [facility] 3 16:31:40 Seasonal allergic rhinitis 297143671 Active 2022 Ray Moreno MD [address], [place], [address] , [facility] 3 17:38:01 Lumbar spondylosi s 740616966 Active 2022 Ray Moreno MD [address] [employer], [address], [place], [address] , [facility] 3 10:23:15 Sleep apnea 34991951 Active 2022 Ray Moreno MD [address] [employer], [address], [address] , [facility] 3 10:26:16 Hypertensi ve disorder 92692745 Active 2022 Ray Moreno MD [address] [employer], [address], [address] , [place] [facility] 3 10:30:36 Pancreatit is 94974690 Active 2022 Ray Moreno MD [address] [email or web address], [address], [address] , [facility] 3 14:14:30 Liver enzymes level above reference range 787244654 Active 2022 Ray Moreno MD [address], [place] [address], [place], [address] , [facility] 3 14:26:53 [place] palsy of left side of face 1990350352292 9103 Active 2023 Ray Moreno MD [address], [address], [place], [address] , [place] [facility] 4 12:52:16 Weakness of left facial muscle 989033211 Active 2023 Ray Moreno MD [address], [address], [place], [address] , [place] [facility] 4 12:54:06 Fatigue 17464160 Active 2023 Ray Moreno MD [address], [address], [place], [address] , [place] [facility] 4 14:59:09 COVID-19 959826828 Active 2024 Ray Moreno MD [address], [address], [place], [address] , [place] [facility] 5 09:41:43 Fever with chills 763506534 Active 2024 Ray Moreno MD [address], [address], [place], [address] , [place] [facility] 5 09:42:06 Open wound of left lower leg 4307115464504 9106 Active 2024 Ray Moreno MD [address], [address], [place], [address] , [place] [facility] 5 17:36:38 Open wound of lower limb 06163862 Active 2024 Ray Moreno MD [address], [address], [place], [address] , [place] [facility] 5 17:37:18 Ulcer of lower extremity 42645122 Active 2024 Ray Moreno MD [address], [address], [place], [address] , [facility] 5 17:39:05 Swelling of lower leg 496081778 Active 2024 Ray Moreno MD [address], [address], [place], [address] , [facility] 5 17:41:05 Open wound of lower limb 16367622 Active 2024 Thad Zoya, DPM [address], [address], [place], [address] , [employer] 5 14:17:31 Lymphedema of limb 339921289 Active 2024 Thad Kenny DPM [address], [address], [place], [address] , [facility] 5 17:38:13 Peripheral venous insufficie ncy 17306336 Active 2024 Thad Kenny DPM [address], [address], [place], [address] , [facility] 5 15:36:51 Pruritic rash 21576694 Active 2024 Thad Kenny DPM [address], [address], [place], [address] , [facility] 5 12:15:14 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 sm 10180007 Active 2024 Ray Moreno MD [address], [address], [place], [address] , [facility] 5 16:31:18 Primary hypothyroi dism 13912896 Active 2024 Ray Moreno MD [address], [address], [place], [address] , [employer] 5 17:02:26 Stasis dermatitis 50842886 Active 2024 Ray Moreno MD [address], [address], [place], [address] , [facility] 5 17:17:05 Insect bite of lower limb 328212651 Active 2024 Thad Kenny DPM [address], [address], [place], [address] , [facility] 5 14:16:52 Open wound of toe 170104263 Active 2024 Thad Kenny DPM [address], [address], [place], [address] , [facility] [employer] [facility] 5 09:20:59 Eczema of lower limb 530269342 Active 2024 Ray Moreno MD [address], [facility] [address], [place], [address] , [facility] [employer] [facility] 5 17:16:58 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 164139731 Active 2024 Ray Moreno MD [address], [facility] [address], [place], [address] , [facility] [employer] [facility] 5 17:19:16 Abnormal gait 97660041 Active 2024 Ray Moreno MD [address], [address] [place] [address], [place], [address] , [facility] [employer] [facility] 5 17:40:46 Ulcer of toe of left foot Active 2024 Thad Kenny DPM [address], [address] [place] [address], [place], [address] , [facility] [employer] [facility] 5 09:02:30 Notes:Ray Moreno MD [phone] [facility] home sleep study 01/02/23 AHI = 41, [...] Name and Address Organization Details Recorded Time 5 Wound Care-Podiatry completed Celia Li RN [facility] [employer] [facility] 05/25/2025 12:24:51 5 Wound Care-Podiatry completed Celia Li RN [facility] [employer] [facility] 05/11/2025 12:39:44 5 Wound Care-Podiatry completed Thad Kenny DPM [address], [place], [address], [facility] [employer] [facility] 04/27/2025 13:57:28 5 Wound Care-Podiatry completed Thad Kenny DPM [address], [place], [address], [facility] [employer] [facility] 04/21/2025 15:27:03 5 Wound Care-Podiatry completed Celia Li RN [facility] [employer] [facility] 04/13/2025 15:26:01 5 Transitional_C are_Management completed Tanya Moran RN [facility] [employer] [facility] 04/12/2025 17:03:42 5 Wound Care-Podiatry completed hTad Kenny DPM [address], [address], [place], [address], [facility] [employer] [facility] 04/04/2025 09:19:04 5 Wound Care-Podiatry completed Celia Li RN [facility] [employer] [facility] 03/23/2025 13:10:00 5 Wound Care-Podiatry completed Celia Li RN [facility] [employer] [facility] 03/16/2025 11:32:52 5 Wound Care-Podiatry completed Celia Li RN [facility] [employer] [facility] 03/09/2025 10:07:15 5 Wound Care-Podiatry completed Celia Li RN [facility] [employer] [facility] 03/02/2025 11:48:48 5 Wound Care-Podiatry completed Celia Li RN [facility] [employer] [facility] 02/23/2025 12:01:59 5 Wound Care-Podiatry completed Celia Li RN [facility] [employer] [facility] 02/16/2025 11:40:09 5 Wound Care-Podiatry completed Justice Dave RN [facility] [employer] [facility] 02/09/2025 10:23:16 5 Wound Care-Podiatry completed Thad Kenny DPM [address], [place], [address], [facility] [email or web address] [facility] 02/02/2025 13:37:03 5 Wound Care-Podiatry completed Celia Li RN [facility] [employer] [facility] 01/26/2025 15:49:01 5 Wound Care-Podiatry completed Thad Kenny DPM [address], [place], [address], [facility] [email or web address] [facility] 01/19/2025 13:31:19 5 Wound Care-Podiatry completed Justice Dave RN [facility] [employer] [facility] 01/17/2025 09:01:39 5 Wound Care-Podiatry completed Celia Li RN [facility] [employer] [facility] 01/05/2025 17:17:17 2 Hernia Surgery completed Not Available [facility] 09/18 07:26:20 Vasectomy completed Not Available [facility] 0 09/18/2022 07:26:20 Imaging Results None recorded. Procedure Notes None recorded. Medical Equipment None Reported. Allergies Allergen ID Allergen Name Allergen Category Reaction Reaction Severity Criticality Documentation Date Start Date Code Code System Note Provider Name and Address Organization Details Recorded Time 88337 peanut allergeni c extract food,medi cation itching mild Not available 09/18/2022 72196 8 RxNorm Not Available [facility] 3 07:34:13 86351 prednison e medicatio n other Not available high 12/28/20242019 8640 RxNorm Hyper glyce hipolito Blood sugar s shoot up to above 800 DARRICK May [facility] [employer] [facility] 5 17:32:35 12852 Betadine medicatio n other severe high 04/12/20252024 17794 0 RxNorm blist ers, sores DARRICK May [facility] [employer] [facility] 17:11:56 93286 prednisol one medicatio n Not available Not available Not available 06/03/20252024 8638 RxNorm Not Available more - External Data Service - prod 09:05:32 96344 iodine medicatio n Not available Not available Not available 06/03/20252024 5933 RxNorm tutu eugene ogniz ed react ion (text : Conta ct Hulbert titis , code: 99533 004) (from [facility]) Not Available [facility] External Data Service - prod 09:05:33 Medications Name Sig Start Date Stop Date Status Note LastModified by Organization Details LastModified Time cyclobenz aprine 10 mg tablet TAKE 1 TABLET BY MOUTH EVERY 12 HOURS NEEDED active Not Available Not Available No t Available cefazolin 1 gram solution for injection Take 1 g by injectio n route for 1 day. 01/05 completed pt abhi well Not Available Not Available Not Available promethaz ine-DM 6.25 mg-15 mg/5 mL oral syrup TAKE 10 ML BY MOUTH EVERY 8 HOURS FOR 7 DAYS NEEDED 01/05 completed Not Available Not Available Not Available nystatin 100,000 unit/mL oral suspensio n Take [...] EVERY 8 HOURS FOR 7 DAYS NEEDED 01/13 completed Not Available Not Available Not Available valacyclo vir 1 gram tablet active Not Available Not Available Not Available hydrocodo ne 5 mg-acetam inophen 325 mg tablet TAKE 1 TABLET BY MOUTH EVERY 6 HOURS NEEDED FOR PAIN active Not Available Not Available No t Available bupivacai ne HCl 0.5 % (5 mg/mL) injection solution Take 20 mg by injectio n route. 11/25 completed Not Available Not Available Not Available dexametha sone 6 mg tablet TAKE 1/2 TABLET BY MOUTH TWICE DAILY WITH A MEAL FOR 7 DAYS 01/05 completed Not Available Not Available Not Available phentermi ne 15 mg capsule TAKE 1 CAPSULE BY MOUTH EVERY DAY IN THE MORNING 06/17 completed Not Available Not Available Not Available promethaz ine 6.25 mg-codein e 10 mg/5 mL syrup 09/09 completed Not Available Not Available Not Available chlorthal idone 25 mg tablet TAKE 1 TABLET BY MOUTH EVERY DAY active Not Available Not Available No t Available amlodipin e 5 mg tablet TAKE 1 TABLET BY MOUTH DAILY active Not Available Not Available No t Available tramadol 50 mg tablet Take 1 tablet every 8 hours by oral route as needed for 7 days. 04/26 completed Not Available Not Available Not Available phentermi ne 30 mg capsule Take 1 capsule every day by oral route in the morning for 30 days. 07/01 completed Not Available Not Available Not Available levothyro xine 25 mcg tablet Take 1 tablet every day by oral route in the morning for 90 days. 2024 active Not Available Not Available Not Avai lable ketorolac 0.5 % eye drops 06/13 completed [...] administ ered by the provider 11/25 completed [facility]: [phone] Not Available Not Available Not [...] Available Not Available Not Available ferrous sulfate 325 mg (65 mg iron) tablet Take 1 tablet every day by oral route after meal(s) for 90 days. 2024 active Not Available Not Available Not Avai lable prednison e 50 mg tablet TAKE 1 TABLET BY MOUTH DAILY FOR 1 DAY active Not Available Not Available No t Available losartan 25 mg tablet TAKE 1 TABLET BY MOUTH EVERY DAY DIRECTED active Not Available Not Available No t Available metoprolo l tartrate 50 mg tablet TK 1 T PO Q 12 H 05/02 completed Not Available Not Available Not Available betametha sone dipropion ate 0.05 % topical cream APPLY THIN LAYER TOPICALL Y TO THE AFFECTED AREA DAILY active Not Available Not Available No t Available folic acid 1 mg tablet 06/13 completed Not Available Not Available Not Available codeine 10 mg-guaife nesin 100 mg/5 mL oral liquid TAKE 10 ML BY MOUTH EVERY 6 TO 8 HOURS FOR 5 DAYS NEEDED 12/18 completed Not Available Not Available Not Available mupirocin 2 % topical ointment APPLY SMALL AMOUNT TOPICALL Y TO THE AFFECTED AREA TWICE DAILY. active Not Available Not Available No t Available furosemid e 20 mg tablet TAKE 1 TABLET BY MOUTH EVERY DAY IN THE MORNING 07/01 completed Not Available Not Available Not Available ergocalci ferol (vitamin D2) 1,250 mcg (50,000 unit) capsule TAKE 1 CAPSULE BY MOUTH EVERY WEEK DIRECTED 2024 active Not Available Not Available Not Avai lable testoster one cypionate 200 mg/mL intramusc ular oil Inject 0.25 mL every 2 weeks by intramus cular route as directed for 30 days. 2024 active Not Available Not Available Not Avai lable methylpre dnisolone 4 mg tablets in a dose pack FOLLOW PACKAGE DIRECTIO NS 07/01 completed Not Available Not Available Not Available albuterol sulfate HFA 90 mcg/actua tion aerosol inhaler INHALE 2 PUFFS BY MOUTH EVERY 6 HOURS FOR 10 DAYS NEEDED active Not Available Not Available No t Available SSD 1 % topical cream APPLY 1/16 INCH THICK LAYER TO ENTIRE WOUND AREA TWICE DAILY active Not Available Not Available No t Available ondansetr on 4 mg disintegr ating tablet Take 1 tablet every 6-8 hours by oral route as needed for 5 days. active Not Available Not Available No t Available fluticaso ne propionat e 50 mcg/actua tion nasal spray,cayla pension SHAKE LIQUID AND USE 2 SPRAYS IN EACH NOSTRIL EVERY DAY DIRECTED 2024 active Not Available Not Available Not Avai lable metformin ER 500 mg tablet,ex tended release 24 hr Take 1 tablet twice a day by oral route with meals for 30 days. active Not Available Not Available No t Available lisinopri l 2.5 mg tablet Take 1 tablet every day by oral route as directed for 90 days. 01/05 completed Not Available Not Available Not Available naproxen 500 mg tablet TAKE 1 TABLET BY MOUTH EVERY 12 HOURS NEEDED active Not Available Not Available No t Available BD Luer-[place] Syringe 3 mL 21 gauge x 1 USE DIRECTED active Not Available Not Available No t Available amoxicill in 875 mg-potass ium clavulana te 125 mg tablet TAKE 1 TABLET BY MOUTH EVERY 12 HOURS FOR 14 DAYS 01/12 completed Not Available Not Available Not Available oxycodone 5 mg tablet TAKE 1 TABLET BY MOUTH EVERY 8 HOURS NEEDED FOR PAIN active Not Available Not Available No t Available cyclobenz aprine 5 mg tablet TAKE 1 TABLET BY MOUTH THREE TIMES DAILY NEEDED FOR MUSCLE SPASM 12/18 completed Not Available Not Available Not Available fenofibra te 160 mg tablet TK 1 T PO D 11/16 completed Not Available Not Available Not Available doxycycli ne hyclate 100 mg tablet,de layed release TAKE 1 TABLET BY MOUTH TWICE DAILY FOR 5 DAYS active Not Available Not Available No t Available ferrous sulfate 324 mg (65 mg iron) tablet,de layed release Take 1 tablet every day by oral route after meals for 90 days. active Not Available Not Available No t Available Lantus Solostar U-100 Insulin 100 unit/mL (3 mL) subcutane ous pen ADMINIST ER 15 UNITS UNDER THE SKIN EVERY DAY DIRECTED active Not Available Not Available No t Available levocetir izine 5 mg tablet TAKE 1 TABLET BY MOUTH EVERY DAY DIRECTED 01/05 completed Not Available Not Available Not Available Humalog KwikPen (U-100) Insulin 100 unit/mL [...] e Shiloh Pen Needle 32 gauge x USE WITH INSULIN PENS QID UTD 05/16 completed Not Available Not Available Not Available Vios Aerosol Delivery System 06/13 completed Not Available Not Available Not Available Eliquis 5 mg tablet Take 1 tablet twice a day by oral route as directed for 30 days. active Take as directed by Cardio. Not Available Not Available Not Available Contrave 8 mg-90 mg tablet,ex tended release Take 2 tablets twice a day by oral route as directed for 30 days. 2024 active Not Available Not Available Not Avai lable Humalog KwikPen U-200 Insulin 200 unit/mL (3 mL) subcutane ous Inject 5 units 4 times a day by subcutan eous route with meal(s) for 30 days. active Not Available Not Available No t Available OneTouch Ultra Blue Test Strip USE [...] 2)-100 mg tablets in a dose pack TAKE 3 TABLETS BY MOUTH TWICE DAILY 01/05 completed Not Available Not Available Not Available Vitals Date Recorded Body height Body mass index (BMI) Body weight Body temperature Oxygen saturation Heart rate Systolic And Diastolic Provider Name and Address Organization Details Last Updated DateTime 5 175.26 cm 53.6 kg/m2 978165. 03 g 98.1 [degF] 99 % 81 /min 142/80 mm[Hg] Tanya MoranRN [place] - [facility] [employer] 5 11:52:08 Social History Question Answer Notes LastModified by Organizat ion Details LastModified Time Tobacco Smoking Status Former Smoker quit in 2017 Not Available [employer] 09/18/2022 07:25:57 Do You Have An Advance Directive? No MIGRATION.[id number] Information not available 09/18/2022 Do You Wear A Helmet When Biking? No MIGRATION.39348 45744 Information not available 09/18/2022 What Is Your Level Of Caffeine Consumption? Moderate MIGRATION.30239 59173 Information not available 09/18/2022 In The 14 Days Before Symptom Onset, Have You Had Close Contact With A Laboratory-confi rmed COVID-19 While That Case Was Ill? No MIGRATION.30332 04128 Information not available 09/18/2022 In The 14 Days Before Symptom Onset, Have You Had Close Contact With A Person Who Is Under Investigation For COVID-19 While That Person Was Ill? No MIGRATION.78443 33974 Information not available 09/18/2022 What Type Of Diet Are You Following? REGULAR MIGRATION.45093 05039 Information not available 09/18/2022 What Is The Highest Grade Or Level Of School You Have Completed Or The Highest Degree You Have Received? MM35040-3 MIGRATION.33582 53130 Information not available 09/18/2022 Have There Been Any Changes To Your Family Or Social Situation? No MIGRATION.21100 58620 Information not available 09/18/2022 When Did You Quit Smoking? 1-5yearssincelastc igarette MIGRATION.96801 87593 Information not available 09/18/2022 Are There Any Guns Present In Your Home? No MIGRATION.31451 81903 Information not available 09/18/2022 Do You Use Insect Repellent Routinely? No MIGRATION.19600 65546 Information not available 09/18/2022 [facility] MIGRATION.12471 44197 Information not available 09/18/2022 Do You Have A Medical Power Of Mold Parter? No MIGRATION.61712 86803 Information not available 09/18/2022 Have You Ever Been Counseled For Unhealthy Alcohol Use? No MIGRATION.53185 94888 Information not available 09/18/2022 Do You Have Any Pets? Yes MIGRATION.07747 01038 Information not available 09/18/2022 What Is Your Relationship Status? MIGRATION.91612 63818 Information not available 09/18/2022 Do You Use Your Seat Belt Or Car Seat Routinely? Yes MIGRATION.19894 84498 Information not available 09/18/2022 Do You Have Smoke And Carbon Monoxide Detectors In Your Home? Yes MIGRATION.08868 17627 Information not available 09/18/2022 Are You Passively Exposed To Smoke? No MIGRATION.01388 49650 Information not available 09/18/2022 Are There Any Smokers In Your House? No MIGRATION.13314 87046 Information not available 09/18/2022 Do You Participate In Social Media? No MIGRATION.26405 48835 Information not available 09/18/2022 Do You Use Sunscreen Routinely? Yes MIGRATION.91703 89671 Information not available 09/18/2022 Has Tobacco Cessation Counseling Been Provided? No MIGRATION.82656 13794 Information not available 09/18/2022 Have You Recently Traveled Abroad? No MIGRATION.19295 95448 Information not available 09/18/2022 Are You Currently In School? No MIGRATION.33513 10443 Information not available 09/18/2022 Do You Have Any Dietary Restrictions? No MIGRATION.67694 69793 Information not available 09/18/2022 Sex: Male Functional Status Question Answer Note LastModified by Organizat ion Details LastModified Time Do you or have you ever used any other forms of tobacco or nicotine? No MIGRATION.[id number] 26 Information not available 09/18/2022 What is your level of alcohol consumption? None MIGRATION.[id number] 26 Information not available 09/18/2022 What is your exercise level? Occasional MIGRATION.[id number] 26 Information not available 09/18/2022 Mental Status None recorded. Family History Relationship Description Onset Age of this Age Resolved Age Notes LastModified by Organization Details LastModified Time Sister Hypertensive disorder MIGRATION.[id number] Not available 09/18/2022 07:26:21 Maternal Grandfather Malignant neoplasm of prostate MIGRATION.147 [id number] Not available 09/18/2022 07:26:21 Mother Malignant neoplasm of breast MIGRATION.935 [id number] Not available 09/18/2022 07:26:21 Medical History Condition Response CYSTITIS N BLINDNESS N RHEUMATIC FEVER N KIDNEY STONES N BLADDER PROBLEMS N Enlarged Prostate N MRSA N OTHER # 1 N POLIO N LUNG DISEASE/DISORDER N HISTORY OF DRUG ABUSE N RADIATION / CHEMOTHERAPY N COPD N Other # 2 N BLOOD DISEASES N SURGERY N EAR OR HEARING PROBLEMS N MUMPS N SHINGLES N BOWEL PROBLEMS N FEMALE PROBLEMS / INFECTIONS N DEPRESSION (INCLUDING POST ) N STROKE/TIA N THYROID DISEASE N ULCERS N BENIGN PROSTATIC HYPERPLASIA N MEASLES N CERVICALGIA N HYPOTENSION N TB SKIN TEST N MYOCARDIAL INFARCTION N PARAPELGIA N OBESITY N GERD/NAUSEA N ANEURYSM N URINARY/BLADDER/KIDNEY PROBLEMS N Increased Urination N CORONARY ARTERY DISEASE (CAD) N MENIERE'S [...] INSOMNIA N HIGH CHOLESTEROL / HYPERLIPIDEMIA N HYPERTHYROIDISM N EYE PROBLEMS N UTI N EATING DISORDER N EDEMA N CHRONIC PAIN SYNDROME N HYPOTHYROIDISM N CAROTID BLOCKAGE N CONSTIPATION N BACK / NECK PROBLEMS N HAVE YOU BEEN HOSPITALIZED OR SEEN IN TH E ER IN THE PAST YEAR ? Y ATHEROSCLEROSIS [...] N PAIN N HERPES N DEMENTIA N HEADACHES/MIGRAINES N SEIZURES/EPILEPSY N HEART MURMUR N VASCULAR DISEASE N PACEMAKER N DIZZINESS N HEART DISEASE/HEART PROBLEMS N KIDNEY DISEASE N DEVELOPMENTAL OR BEHAVIORAL DISORDERS N MULTIPLE SCLEROSIS N SCARLET FEVER N MENTAL DISORDER/ILLNESS N CARDIAC ARRHYTHMIA N CANCER: SPECIFY N ANESTHESIA COMPLICATIONS N PNEUMONIA N ATRIAL FIBRILLATION N Gall Stones N PULMONARY EMBOLISM N AUTOIMMUNE DISEASE N Immunizations Vaccine Type Date Status Note Provider Nam e and Address Organization Details Recorded Time HPV9 09/10/2021 completed Not Available [facility] 09/18/2022 07:34:06 Influenza, split virus, quadrivalent, PF 05/16/2020 completed Not Available [facility] 07:34:07 HPV9 05/16/2020 completed Not Available [facility] 09/18/2022 07:34:07 Tdap 09/16/2019 completed Not Available [facility] 09/18/2022 07:34:07 HPV9 12/18/2022 completed Karon Arredondo RN null, [facility] [employer] [facility] 12/18/2022 12:40:48 Influenza, split virus, trivalent, PF 07/01/2024 completed Tanya Moran RN null, [facility] [employer] [facility] [employer] 07/02/2024 10:32:24 Past Encounters Encounter ID Performer Location Encounter Start Date Encounter Closed Date Diagnosis/Indication Diagnosis SNOMED-CT Code Diagnosis ICD10 Code Diagnosis IMO Codes Diagnosis Note [id number] Thad Kenny DPM [facility] [address] [place] [address] 05/11/2025 12:08:02 05/11/2025 14:19:43 Ulcer of toe of left foot 9839410588 7884045 L97.522 [id number] 3 woundsdail y dressingsm onitor for signs of infectionf ollow-up on week Peripheral venous insufficiency 63023064 I87.2 04227 continue chronic compressio nfollow-up with vascular [id number] Ray Moreno MD [address] [address] 05/18/2025 09:19:01 05/18/2025 09:43:37 [id number] Thad Kenny DPM [facility] [address] [place] [address] 05/25/2025 11:59:24 06/01/2025 14:59:23 Ulcer of toe of left foot 6466229086 6965031 L97.522 [id number] Healedfoll ow-up as needed Peripheral venous insufficiency 00294343 I87.2 65693 continue chronic compressio nfollow-up with vascular [id number] Ray Moreno MD [address] [address] 06/03/2025 09:04:28 06/03/2025 09:26:11 [id number] Ray Moreno MD [address] [address] 06/06/2025 11:43:59 06/06/2025 12:14:07 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sm 76061333 E29.1 39576276 Liver enzy mes level above reference range 391754435 R74.01 Improved Hypertensive disorder 38 429742 I10 History of diabetes mellitus 040473250 Z86.39 Morbid obesity 781379978 E66.01 Ex-cigarette smoker 2810 61464 Z87.891 152202 Vitamin D deficiency 347 83018 E55.9 Weakness o f left facial muscle 504169971 R29.810 Fatigue 70233186 R53.83 Primary hypothyroidism 81384250 E03.9 27760 Anemia 648347757 D64.9 9887171 Stasis dermatitis 221560 05 I87.2 [id number] B/l legs Health Concerns Section Related Observation LastModified by Organization Detai ls LastModified Time None Recorded Concern Status LastModified by Organization Details LastModified Time None Recorded Payers Encounter Date Sequence Insurance Name Policy Number Policy Leonard Covered Member ID Leonard Member ID Guarantor Name 06/06/2025 1 [place] [id number] Zheng Carrizales [id number] Elianato Stevo Carrizales Notes Date Note Type Note Provider Name and Address Organization Details Recorded Time 06/06/2025 text/html Pt is here for f/u on labs and chronic conditions. Doing overall much better. Denies any new concern. Pt is f/u with wound clinic and vascular doctor for her chronic b/l leg wounds and its all resolved now. Pt is f/u with Bariatric clinic at [place] and he needs to do some wt loss by himself first before they can offer any surgery for him. 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 Pt was admitted [facility] to pancreatitis and was seen by GI there and was told it was probably from [facility]. So he has stopped taking it.Pt was admitted to [place] from 08/15/19 to 08/23/19 due to Sepsis, acute renal failure, anemia, Pneumonia, rhabdomyolysis & UTI. Pt was seen by Hemat at the hospital and he had bone marrow biopsy done and was also seen by Nephro. Ray Moreno MD [address] [place] [address], [facility] [address], [place], [address], [place] - [facility] 06/06/2025 12:13:18
--- OUTSIDE RECORDS SUMMARY | 2025-06-15 01:22 | XMS_ITS | Continuity of Care Document ---
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 Plan of Treatment Reminders Order Date Submit Date Provider Last Modified By Organization Details Last Modified Time Details Appointments Follow Up 15 2025 09:00A M Ray Moreno MD Not available Not available Not available Lab None recorded . Referral None recorded . Procedures None recorded . Surgeries None recorded . Imaging None recorded . Medication Orders None recorded . Patient TargetsNo targets recorded. Patient InstructionsNo instructions recorded. Reason for Referral None Reported. Results Created Date Observation Date Name Description Value Unit Range Abnormal Flag Note LastModifiedBy Organization Detail LastModifiedTime Result Notes None recorded. Problems Name Problem SNOMED Code Status Onset Date Resolution Date Notes Provider Name and Address Organization Details Recorded Time Morbid obesity 343844794 Active 2019 Ray Moreno MD [address] [place] [address], [address] , [facility] [email or web address] 5 17:50:52 Ex-smoker 4914565 Active 2019 Not Available [facility] 3 07:29:44 History of sepsis 8075338428428 00 Active 2019 Not Available [facility] 3 07:29:40 Acute kidney injury 53146442 Active 2019 Not Available [facility] 3 07:29:40 Persistent insomnia 230773343 Active 2019 Not Available [facility] 3 07:29:40 Steatotic liver disease 023762362 Active 2019 Not Available [facility] 3 07:29:40 Anemia 672303203 Active 2019 Ray Moreno MD [address] [facility] [facility] [address], [place], [address] , [facility] 5 17:04:16 Peripheral edema 658404533 Active 2019 Not Available [facility] 3 07:29:41 Cellulitis of lower limb 360784681 Active 2019 Not Available [facility] 3 07:29:43 Candidiasi s of mouth 72459384 Active 2019 Not Available [facility] 3 07:29:44 Umbilical hernia 036985093 Active 2019 Not Available [facility] 3 07:29:42 Uncontroll ed type 2 diabetes mellitus 317741067 Active 2019 Not Available [facility] 3 07:29:43 Microscopi c hematuria 522004219 Active 2019 Not Available [facility] 3 07:29:41 Vitamin D deficiency 68400116 Active 2019 Not Available [facility] 3 07:29:42 Autoimmune hemolytic anemia 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 Active 2019 Not Available [facility] 3 07:29:43 History of atrial fibrillati on 030684631 Active 2019 Not Available [facility] 3 07:29:42 Type 2 diabetes mellitus without complicati on 573783750 Active 2019 Not Available [facility] 3 07:29:42 History of diabetes mellitus 936442512 Active 2019 Not Available [facility] 3 07:29:40 Increased frequency of urination 865340560 Active 2021 Not Available [facility] 3 07:29:40 Kole hematuria 233722445 Active 2021 Not Available [facility] 3 07:29:41 Blood in urine 83182231 Active 2021 Not Available [facility] 3 07:29:42 Lower urinary tract symptoms due to benign prostatic hypertroph y 7389191545707 1 Active 2021 Not Available [facility] 3 07:29:41 Disorder of prostate 44443111 Active 2021 Not Available [facility] 3 07:29:42 Active or passive immunizati on Active 2021 Not Available [facility] 3 07:29:40 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 Not Available [facility] 3 07:29:41 Adult health examinatio n Active 2021 Not Available [facility] 3 07:29:41 Urethral stricture 85117912 Active 2021 Not Available [facility] 3 07:29:44 Pain in right sacroiliac joint 9087314717353 9107 Active 2021 Not Available [facility] 3 07:29:40 Hypothyroi dism 52463895 Active 2021 Not Available [facility] 3 07:29:43 Swelling of bilateral lower limbs 522636480 Active 2021 Not Available [facility] 3 07:29:44 Acute urinary tract infection 949256423 Active 2021 Not Available [facility] 3 07:29:43 Bronchitis 55811998 Active 2021 Not Available [facility] 3 07:29:42 Cough 04228259 Active 2021 Not Available [facility] 3 07:29:43 Nasal congestion 94751978 Active 2022 Ray Moreno MD [address], [place], [address] , [facility] [employer] [facility] 3 16:31:40 Seasonal allergic rhinitis 256029974 Active 2022 Ray Moreno MD [address], [place], [address] , [facility] [employer] [facility] 3 17:38:01 Lumbar spondylosi s 330427414 Active 2022 Ray Moreno MD [address], [place], [address] , [facility] 3 10:23:15 Sleep apnea 50770278 Active 2022 Ray Moreno MD [address], [place], [address] , [facility] 3 10:26:16 Hypertensi ve disorder 52369516 Active 2022 Ray Moreno MD [address], [place], [address] , [facility] 3 10:30:36 Pancreatit is 64715832 Active 2022 Ray Moreno MD [address], [place], [address] , [facility] 3 14:14:30 Liver enzymes level above reference range 803355847 Active 2022 Ray Moreno MD [address], [place], [address] , [employer] [facility] 3 14:26:53 [place] palsy of left side of face 8916901728127 9103 Active 2023 Ray Moreno MD [address], [place], [address] , [facility] 4 12:52:16 Weakness of left facial muscle 949795818 Active 2023 Ray Moreno MD [address], [place], [address] , [facility] 4 12:54:06 Fatigue 20260999 Active 2023 Ray Moreno MD [address], [place], [address] , [facility] 4 14:59:09 COVID-19 729670633 Active 2024 Ray Moreno MD [address], [place], [address] , [facility] 09:41:43 Fever with chills 272368714 Active 2024 Ray Moreno MD [address], [place], [address] , [facility] 5 09:42:06 Open wound of left lower leg 0449397130863 9106 Active 2024 Ray Moreno MD [address], [place], [address] , [facility] 5 17:36:38 Open wound of lower limb 03028764 Active 2024 Ray Moreno MD [address], [place], [address] , [facility] 5 17:37:18 Ulcer of lower extremity 20466689 Active 2024 Ray Moreno MD [address], [place], [address] , [facility] 5 17:39:05 Swelling of lower leg 031307289 Active 2024 Ray Moreno MD [address], [place], [address] , [facility] 5 17:41:05 Open wound of lower limb 34726604 Active 2024 Thad Kenny DPM [address], [place], [address] , [facility] 5 14:17:31 Lymphedema of limb 889448980 Active 2024 Thad Kenny DPM [address], [place], [address] , [facility] 06/18/202 5 17:38:13 Peripheral venous insufficie ncy 79744779 Active 2024 Thad Kenny DPM [address], [place], [address] , [email or web address] [facility] [employer] [facility] 5 15:36:51 Pruritic rash 04913121 Active 2024 Thad Kenny DPM [address], [place], [address] , [employer] 5 12:15:14 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 sm 39377560 Active 2024 Ray Moreno MD [address], [place], [address] , [email or web address] 5 16:31:18 Primary hypothyroi dism 89588161 Active 2024 Ray Moreno MD [address], [place], [address] , [email or web address] 5 17:02:26 Stasis dermatitis 38934745 Active 2024 Ray Moreno MD [address], [place], [address] , [employer] 5 17:17:05 Insect bite of lower limb 482810435 Active 2024 Thad Kenny DPM [address], [place], [address] , [email or web address] [facility] [employer] [facility] 5 14:16:52 Open wound of toe 220719154 Active 2024 Thad Kenny DPM [address], [place], [address] , [email or web address] 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 167385822 Active 2024 Ray Moreno MD [address], [place], [address] , [employer] 5 17:19:16 Abnormal gait 69043957 Active 2024 Ray Moreno MD [address], [place], [address] , [employer] 5 17:40:46 Ulcer of toe of left foot Active 2024 Thad Kenny DPM [address], [place], [address] , [employer] 09:02:30 Notes:Ray Moreno MD [facility] home sleep study 01/02/23 AHI = 41, [...] Name and Address Organization Details Recorded Time Wound Care-Podiatry completed Celia Li RN [place] [employer] 05/25/2025 12:24:51 5 Wound Care-Podiatry completed Celia Li RN [employer] 05/11/2025 12:39:44 5 Wound Care-Podiatry completed Thad Kenny DPM [address] [employer] [address], [address], [place], [address], [employer] 04/27/2025 13:57:28 5 Wound Care-Podiatry completed Thad Kenny DPM [address], [place], [address], [employer] 04/21/2025 15:27:03 5 Wound Care-Podiatry completed Celia Li RN [facility] [employer] [facility] 04/13/2025 15:26:01 5 Transitional_C are_Management completed Tanya Moran RN [facility] [employer] [facility] 04/12/2025 17:03:42 5 Wound Care-Podiatry completed Thad Kenny DPM [address], [place], [address], [facility] [employer] [facility] 04/04/2025 09:19:04 5 Wound Care-Podiatry completed Celia Li RN [facility] [employer] [facility] 03/23/2025 13:10:00 5 Wound Care-Podiatry completed Celia Li RN [facility] [employer] [facility] 03/16/2025 11:32:52 5 Wound Care-Podiatry completed Celia Li RN [facility] [employer] [facility] 03/09/2025 10:07:15 5 Wound Care-Podiatry completed Celia Li RN [facility] [employer] [facility] 03/02/2025 11:48:48 5 Wound Care-Podiatry completed Celia Li RN [facility] [employer] [facility] 02/23/2025 12:01:59 5 Wound Care-Podiatry completed Celia Li RN [facility] [employer] [facility] 02/16/2025 11:40:09 5 Wound Care-Podiatry completed Justice Dave RN [facility] [employer] [facility] 02/09/2025 10:23:16 5 Wound Care-Podiatry completed Thad Kenny DPM [address], [place], [address], [facility] [employer] [facility] 02/02/2025 13:37:03 5 Wound Care-Podiatry completed Celia Li RN [facility] [employer] [facility] 01/26/2025 15:49:01 5 Wound Care-Podiatry completed Thad Kenny DPM [address] [facility] [facility] [address], [place], [address], [facility] 01/19/2025 13:31:19 5 Wound Care-Podiatry completed Justice Dave RN [facility] 01/17/2025 09:01:39 5 Wound Care-Podiatry completed Celia Li RN [facility] 01/05/2025 17:17:17 2 Hernia Surgery completed Not Available [facility] 09/18 07:26:20 Vasectomy completed Not Available [facility] 0 09/18/2022 07:26:20 Imaging Results None recorded. Procedure Notes None recorded. Medical Equipment None Reported. Allergies Allergen ID Allergen Name Allergen Category Reaction Reaction Severity Criticality Documentation Date Start Date Code Code System Note Provider Name and Address Organization Details Recorded Time 99005 peanut allergeni c extract food,medi cation itching mild Not available 09/18/2022 87180 8 RxNorm Not Available [facility] 07:34:13 64951 prednison e medicatio n other Not available high 12/28/20242019 8640 RxNorm Hyper glyce hipolito Blood sugar s shoot up to above 800 DARRICK May, [facility] 17:32:35 25594 Betadine medicatio n other severe high 04/12/20252024 0 RxNorm blist ers, sores DARRICK May, [facility] 17:11:56 52259 prednisol one medicatio n Not available Not available Not available 06/03/20252024 8638 RxNorm Not Available [place] - External Data Service - prod 09:05:32 04852 iodine medicatio n Not available Not available Not available 06/03/20252024 5933 RxNorm sever e unrec ogniz ed react ion (text : Conta ct [place] titis , code: 76509 004) (from [facility]) Not Available more - External Data Service - prod 09:05:33 Medications [...] administ ered by the provider 11/25 completed NDC: 0003-049 - Not Available Not Available Not Available hydrocodo [...] e Shiloh Pen Needle 32 gauge x /32 USE WITH INSULIN PENS QID UTD 05/16 [...] Not Available Not Available Not Available Vitals None Recorded Social History Question Answer Notes LastModified by Organizat ion Details LastModified Time Tobacco Smoking Status Former Smoker quit in 2017 Not Available [facility] 09/18/2022 07:25:57 Do You Have An Advance Directive? No MIGRATION.13725 96204 Information not available 09/18/2022 Do You Wear A Helmet When Biking? No MIGRATION.42485 10902 Information not available 09/18/2022 What Is Your Level Of Caffeine Consumption? Moderate MIGRATION.63449 55636 Information not available 09/18/2022 In The 14 Days Before Symptom Onset, Have You Had Close Contact With A Laboratory-confi rmed COVID-19 While That Case Was Ill? No MIGRATION.24292 10568 Information not available 09/18/2022 In The 14 Days Before Symptom Onset, Have You Had Close Contact With A Person Who Is Under Investigation For COVID-19 While That Person Was Ill? No MIGRATION.14911 91294 Information not available 09/18/2022 What Type Of Diet Are You Following? REGULAR MIGRATION.29959 62688 Information not available 09/18/2022 What Is The Highest Grade Or Level Of School You Have Completed Or The Highest Degree You Have Received? [id number] MIGRATION.03780 86592 Information not available 09/18/2022 Have There Been Any Changes To Your Family Or Social Situation? No MIGRATION.71261 48283 Information not available 09/18/2022 When Did You Quit Smoking? 1-5yearssincelastc igarette MIGRATION.21100 35580 Information not available 09/18/2022 Are There Any Guns Present In Your Home? No MIGRATION.84732 65009 Information not available 09/18/2022 Do You Use Insect Repellent Routinely? No MIGRATION.21648 40421 Information not available 09/18/2022 [facility] MIGRATION.35457 34836 Information not available 09/18/2022 Do You Have A Medical Power Of Radiation Control Worker? No MIGRATION.47899 43537 Information not available 09/18/2022 Have You Ever Been Counseled For Unhealthy Alcohol Use? No MIGRATION.10419 09976 Information not available 09/18/2022 Do You Have Any Pets? Yes MIGRATION.27270 91773 Information not available 09/18/2022 What Is Your Relationship Status? MIGRATION.93756 54024 Information not available 09/18/2022 Do You Use Your Seat Belt Or Car Seat Routinely? Yes MIGRATION.90673 25192 Information not available 09/18/2022 Do You Have Smoke And Carbon Monoxide Detectors In Your Home? Yes MIGRATION.14901 36537 Information not available 09/18/2022 Are You Passively Exposed To Smoke? No MIGRATION.68429 09216 Information not available 09/18/2022 Are There Any Smokers In Your House? No MIGRATION.87437 03642 Information not available 09/18/2022 Do You Participate In Social Media? No MIGRATION.23651 54563 Information not available 09/18/2022 Do You Use Sunscreen Routinely? Yes MIGRATION.46374 14030 Information not available 09/18/2022 Has Tobacco Cessation Counseling Been Provided? No MIGRATION.07096 45581 Information not available 09/18/2022 Have You Recently Traveled Abroad? No MIGRATION.90791 88300 Information not available 09/18/2022 Are You Currently In School? No MIGRATION.28197 47626 Information not available 09/18/2022 Do You Have Any Dietary Restrictions? No MIGRATION.87056 83793 Information not available 09/18/2022 Sex: Male Functional Status Question Answer Note LastModified by Organizat ion Details LastModified Time Do you or have you ever used any other forms of tobacco or nicotine? No MIGRATION.99187260 26 Information not available 09/18/2022 What is your level of alcohol consumption? None MIGRATION.86376212 26 Information not available 09/18/2022 What is your exercise level? Occasional MIGRATION.49796771 26 Information not available 09/18/2022 Mental Status None recorded. Family History Relationship Description Onset Age of this Age Resolved Age Notes LastModified by Organization Details LastModified Time Sister Hypertensive disorder MIGRATION.203 [id number] Not available 09/18/2022 07:26:21 Maternal Grandfather Malignant neoplasm of prostate MIGRATION.954 2527441 Not available 09/18/2022 07:26:21 Mother Malignant neoplasm of breast MIGRATION.065 8311527 Not available 09/18/2022 07:26:21 Medical History Condition Response BLINDNESS N CYSTITIS N RHEUMATIC FEVER N BLADDER PROBLEMS N KIDNEY STONES N Enlarged Prostate N MRSA N OTHER # 1 N POLIO N LUNG DISEASE/DISORDER N HISTORY OF DRUG ABUSE N RADIATION / CHEMOTHERAPY N COPD N Other # 2 N BLOOD DISEASES N SURGERY N EAR OR HEARING PROBLEMS N MUMPS N SHINGLES N BOWEL PROBLEMS N DEPRESSION (INCLUDING POST ) N FEMALE PROBLEMS / INFECTIONS N STROKE/TIA N THYROID DISEASE N ULCERS N BENIGN PROSTATIC HYPERPLASIA N MEASLES N CERVICALGIA N TB SKIN TEST N HYPOTENSION N MYOCARDIAL INFARCTION N PARAPELGIA N OBESITY [...] GLAUCOMA N FOOT PROBLEM N DIVERTICULITIS N SLEEP APNEA N CHICKENPOX N ALLERGIES/HAYFEVER N INFECTIOUS DISEASE N PROSTATE N HEART ARRHYTHMIA N INSOMNIA N HIGH CHOLESTEROL / HYPERLIPIDEMIA N EYE PROBLEMS N HYPERTHYROIDISM N UTI N EATING DISORDER N EDEMA N CHRONIC PAIN SYNDROME N HYPOTHYROIDISM N CAROTID BLOCKAGE N CONSTIPATION N BACK / NECK PROBLEMS N HAVE YOU BEEN HOSPITALIZED OR SEEN IN [facility] IN THE PAST YEAR ? [...] DISORDER N ALZHEIMER'S DISEASE N PAIN N DEMENTIA N HERPES N SEIZURES/EPILEPSY N HEADACHES/MIGRAINES N VASCULAR DISEASE N PACEMAKER N HEART MURMUR N DIZZINESS N KIDNEY DISEASE N HEART DISEASE/HEART PROBLEMS N SCARLET FEVER N MULTIPLE SCLEROSIS N MENTAL DISORDER/ILLNESS N DEVELOPMENTAL OR BEHAVIORAL DISORDERS N CANCER: SPECIFY N CARDIAC ARRHYTHMIA N PNEUMONIA N ANESTHESIA COMPLICATIONS N ATRIAL FIBRILLATION N Gall Stones N PULMONARY EMBOLISM N AUTOIMMUNE DISEASE N Immunizations Vaccine Type Date Status Note Provider Nam e and Address Organization Details Recorded Time HPV9 09/10/2021 completed Not Available [facility] 09/18/2022 07:34:06 Influenza, split virus, quadrivalent, PF 05/16/2020 completed Not Available [facility] 07:34:07 HPV9 05/16/2020 completed Not Available [facility] 09/18/2022 07:34:07 Tdap 09/16/2019 completed Not Available [facility] 09/18/2022 07:34:07 HPV9 12/18/2022 completed Karon Arredondo RN null, [facility] [employer] [facility] 12/18/2022 12:40:48 Influenza, split virus, trivalent, PF 07/01/2024 completed Tanya oMran RN null, [facility] [employer] [facility] 07/02/2024 10:32:24 Past Encounters Encounter ID Performer Location Encounter Start Date Encounter Closed Date Diagnosis/Indication Diagnosis SNOMED-CT Code Diagnosis ICD10 Code Diagnosis IMO Codes Diagnosis Note [id number] Thad Kenny DPM [facility] [address] [place] [address] 04/20/2025 12:05:06 04/21/2025 15:47:45 Open wound of lower limb 87044971 S81.801D S81.802D [id number] New compressio n dressings with bilateral Profore is applied to lower extremitie sTubigrip applied left lower legVenous ultrasound reviewed negative for DVTfollow- up 1 week Ulcer of t oe of left foot 2967870449 3730155 L97.522 18040102 multiple- toesdaily dressingsm onitor for signs of infectionf ollow-up on week Peripheral venous insufficiency 79382470 I87.2 99438 continue chronic compressio nfollow-up with vascular [id number] Thad Kenny DPM [facility] [address] [place] [address] 04/27/2025 11:55:42 04/27/2025 14:24:22 Open wound of lower limb 72425490 S81.801D S81.802D [id number] resolved Ulcer of t oe of left foot 8420539085 3445985 L97.522 41951180 multiple- toesdaily dressingsm onitor for signs of infectionf ollow-up on week Peripheral venous insufficiency 34098538 I87.2 18729 continue chronic compressio nfollow-up with vascular [id number] Thad Kenny DPM [facility] [address] [place] [address] 05/11/2025 12:08:02 05/11/2025 14:19:43 Ulcer of toe of left foot 2327852786 1328370 L97.522 80188498 3 woundsdail y dressingsm onitor for signs of infectionf ollow-up on week Peripheral venous insufficiency 29895538 I87.2 25978 continue chronic compressio nfollow-up with vascular [id number] Ray Moreno MD [facility] [address] [address] 05/18/2025 09:19:01 05/18/2025 09:43:37 Health Concerns Section Related Observation LastModified by Organization Detai ls LastModified Time None Recorded Concern Status LastModified by Organization Details LastModified Time None Recorded Payers Encounter Date Sequence Insurance Name Policy Number Policy Leonard Covered Member ID Leonard Member ID Guarantor Name 05/18/2025 1 [employer] (PPO) [id number] Zheng Carrizales [id number] Zheng Carrizales
--- OUTSIDE RECORDS SUMMARY | 2025-06-15 01:22 | XMS_ITS | Clinical Summary ---
Author Organization [facility] Address [address] [place] [address] Care Team Providers Care Materials Intern Name Role Phone Ray Moreno MD Primary Care Provider [phone] Allergies Active Allergy Reactions Criticality Noted Date Comments Iodine Contact Dermatitis 04/15/2025 severe Medications No known medications Encounters Date Type Department Care Team Description 04/16/2025 12:03 AM CDT - 04/16/2025 4:37 AM CDT Emergency [facility] Emergency Room [place], [place] [id number] Grupo Jordan MD Blood In Urine Discharge Disposition: Home or Self Care (Routine Discharge) 04/15/2025 Travel from Last 3 Months Family History Medical History Relation Comments Breast [...] PM CDT Legal 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 Gender Identity Male 12/21/2024 2:13 PM CDT Sexual Orientation Straight 12/21/2024 2: 13 PM CDT Last Filed Vital Signs Vital Sign Reading Time Taken Comments Blood Pressure 169/99 04/15/2025 10:40 PM CDT Pulse 96 04/15/2025 10:40 PM CDT Temperature 36.9 C (98.4 F) 04/15/2025 10:40 PM CDT Respiratory Rate 16 04/15/2025 10:40 PM CDT Oxygen Saturation 94% 04/15/2025 10:40 PM CDT Inhaled Oxygen Concentration - - Weight 176.9 kg (390 lb) 04/15/2025 10:40 PM CDT Height 175.3 cm (5' 9) 04/15/2025 10:40 PM CDT Body Mass Index 57.59 04/15/2025 10:40 PM CDT Plan of Treatment Health Maintenance Due Date Last Done Comments Annual Physical 1986 Hepatitis C 2001 Hepatitis B Vaccines (1 of 3 - 19+ 3-dose series) 2002 COVID-19 Vaccine (3 - 2024-2 6 season) 2025 10/09/2021, 09/12/2021 Influenza Adult (#1) 2025 07/01/2024, 05/16/2020 DTaP, Tdap and Td Vaccines ( 2 - Td or Tdap) 09/16/2029 09/16/2019 HPV Vaccines Completed 12/18/2022, 09/10/2021, 05/16/2020 PHQ-2 (Physician [place]) Completed 12/22/2024 Hepatitis A Vaccines Aged Out No long er eligible based [...] on patient's age to complete this topic Procedures Procedure Name Priority Date/Time Associated Diagnosis Comments HC CULTURE URINE W/COLONY CT STAT 04/16/2025 12:38 AM CDT HC URINALYSIS AUTO W/O MICRO STAT 04/16/2025 12:38 AM CDT LACTIC ACID W REFLEX (SEPSIS) STAT 04/16/2025 12:23 AM CDT HC PTT STAT 04/16/2025 12:23 AM CDT HC PROTHROMBIN TIME (PT) STAT 04/16/2025 12:23 AM CDT HC COMPREHENSIVE METABOLIC PANEL STAT 04/16/2025 12:23 AM CDT HC CBC AUTO W/AUTO DIFF STAT 04/16/2025 12:[address] ABD+PEL WO CON STAT 04/15/2025 10: 57 PM CDT from Last 3 Months Results * (ABNORMAL) URINALYSIS (04/16/2025 12:38 AM CDT) SPECIMEN TYPE URINE CLEAN CATCH 04/16/2025 12:38 AM CDT [facility] COLOR (U) LIGHT BROWN 04/16/2025 1:14 AM CDT [facility] TRANSPARENCY TURBID 04/16/2025 1:14 AM CDT [facility] SPECIFIC GRAVITY (U) 1.014 1.001 - 1.030 04/16/2025 1:14 AM CDT [facility] U PH 7.0 5.0 - 9.0 04/16/2025 1:14 AM CDT [facility] LEUKOCYTES (U) 25(A) NEGATIVE 04/16/2025 1:14 AM CDT [facility] NITRITES NEGATIVE NEGATIVE 04/16/2025 1:14 AM CDT [facility] PROTEIN RANDOM (U) 70(H) <30 MG/DL 04/16/2025 1:14 AM CDT [facility] GLUCOSE (U) 30(A) NORMAL MG/DL 04/16/2025 1:14 AM CDT [facility] KETONES MG/DL (U) NEGATIVE NEGATIVE MG/DL 04/16/2025 1:14 AM CDT [facility] UROBILINOGEN NORMAL NORMAL MG/DL 04/16/2025 1:14 AM CDT [facility] BILIRUBIN (U) NEGATIVE NEGATIVE MG/DL 04/16/2025 1:14 AM CDT [facility] BLOOD (U) 3+(A) NEGATIVE 04/16/2025 1:14 AM CDT [facility] MUCUS RARE /LPF 04/16/2025 1:14 AM CDT [facility] WBC/HPF 17(H) <6 /HPF 04/16/2025 1:14 AM CDT [facility] RBC/HPF >100(H) <6 /HPF 04/16/2025 1:14 AM CDT [facility] URINE SPECIMEN OBTAINED BY CLEAN CATCH PROCEDURE / Unknown 04/16/2025 12:38 AM CDT Robyn [facility]MA[facility] URINE ORDERABLES Final Result Performing Organization Address [facility] Co de Phone Number [facility] [address] [place] [address], * CULTURE URINE (04/16/2025 12:38 AM CDT) SPEC DESCRIPTION URINE CLEAN CATCH 04/16/2025 4:19 AM CDT [facility] SPECIAL REQUESTS NO SPECIAL REQUEST 04/16/2025 4:19 AM CDT [facility] CULTURE RESULT NO GROWTH 2 DAYS 04/18/2025 7:26 AM CDT [facility] URINE SPECIMEN OBTAINED BY CLEAN CATCH PROCEDURE / Unknown 04/16/2025 12:38 AM CDT 04/16/2025 4:23 AM CDT Grupo Jordan MD MICROBIOLOGY - GENERAL KAY [place]HAM Final Result Performing Organization Address [facility] Co de Phone Number [facility] [address] [place] [address], [place] [phone] * LACTIC ACID W REFLEX (SEPSIS) (04/16/2025 12:23 AM CDT) LACTIC ACID VENOUS 1.2 0.4 - 2.0 MMOL/L 04/16/2025 1:11 AM CDT [facility] 04/16/2025 12:2 3 AM CDT [facility] Final Result Performing Organization Address [facility] Co de Phone Number [facility] [address] [place] [address], [place] [phone] * (ABNORMAL) PARTIAL THROMBOPLASTIN TIME,PTT (04/16/2025 12:23 AM CDT) PTT 18.2(L) 25.1 - 36.5 SEC 04/16/2025 1:17 AM CDT [facility] 04/16/2025 12:2 3 AM CDT us [facility] Final Result Performing Organization Address City/[facility]/ZIP Co de Phone Number [facility] [address] [place] [address], [place] [phone] * PROTIME/INR, VENOUS (04/16/2025 12:23 AM CDT) PROTIME 11.4 10.2 - 12.9 SEC 04/16/2025 1:17 AM CDT [facility] INR 1.0 04/16/2025 1:17 AM CDT [facility] Comment: Recommended INR Therapeutic Goals: 2.0-3.0 Routine Therapy 2.5-3.5 Mechanical Prosthetic Valves (High Risk) 04/16/2025 12:2 3 AM CDT us [facility] Final Result [facility] [address] [place] [address], * (ABNORMAL) COMPREHENSIVE METABOLIC PANEL (04/16/2025 12:23 AM CDT) GLUCOSE 144(H) 70 - 99 MG/DL 04/16/2025 1:20 AM CDT [facility] BUN 32(H) 7 - 18 MG/DL 04/16/2025 1:20 AM CDT [facility] CREATININE S/P/B 1.55(H) 0.7 - 1.3 MG/DL 04/16/2025 1:20 AM CDT [facility] SODIUM S/P/B 143 136 - 145 MMOL/L 04/16/2025 1:20 AM CDT [facility] POTASSIUM S/P/B 3.9 3.5 - 5.1 MMOL/L 04/16/2025 1:20 AM CDT [facility] Comment:SLIGHT HEMOLYSIS, RE SULT MAY BE AFFECTED. CHLORIDE S/P/B 106 97 - 115 MMOL/L 04/16/2025 1:20 AM CDT [facility] CO2 34.1(H) 21 - 32 MMOL/L 04/16/2025 1:20 AM CDT [facility] CALCIUM S/P/B 9.0 8.5 - 10.1 MG/DL 04/16/2025 1:20 AM CDT [facility] BILIRUBIN TOTAL S/P/B 0.6 0.2 - 1.2 MG/DL 04/16/2025 1:20 AM [facility] Comment: THIS ASSAY IS NOT RECOMMENDED FOR PATIENTS UNDERGOING TREATMENT WITH ELTROMBOPAG DUE TO THE POTENTIAL FOR FALSELY ELEVATED RESULTS. TOTAL PROTEIN S/P/B 5.8(L) 6.4 - 8.2 G/DL 04/16/2025 1:20 AM T [facility] ALBUMIN S/P/B 2.9(L) 3.4 - 5.0 G/DL 04/16/2025 1:20 AM T [facility] AST 26 15 - 37 U/L 04/16/2025 1:20 AM [facility] Comment:SLIGHT HEMOLYSIS, RE SULT MAY BE AFFECTED. ALT 36 16 - 60 U/L 04/16/2025 1:20 AM [facility] ALKALINE PHOSPHATASE S/P/B 71 50 - 136 U/L 04/16/2025 1:20 AM [facility] ANION GAP 2.9 2 - 10 MMOL/L 04/16/2025 1:20 AM [facility] BUN CREATININE RATIO 20.6 6 - 26 04/16/2025 1:20 AM [facility] A/G RATIO 1.0 1.0 - 2.0 RATIO 04/16/2025 1:20 AM [facility] GFR ESTIMATE 57(L) >90 ML/MIN/1.7 3 M2 04/16/2025 1:20 AM [facility] Comment: NOTE: eGFR is not calculated for patients <18 years of age or gender unknown. This is an estimated GFR calculation using the new CKD EPI creatinine equation without race and so does not require a correction factor for race. This estimated GFR should not be used for calculating drug doses. 04/16/2025 12:2 3 AM CDT [facility] Final Result [facility] [address] [place] [address], [place] [phone] * (ABNORMAL) CBC W/DIFF AUTOMATED (04/16/2025 12:23 AM CDT) WBC 12.43(H) 4.5 - 11.0 x10'3/uL 04/16/2025 1:38 AM CDT [facility] RBC 4.20(L) 4.70 - 6.10 x10'6/uL 04/16/2025 1:38 AM CDT [facility] HGB 11.2(L) 14.0 - 18.0 G/DL 04/16/2025 1:38 AM CDT [facility] HCT 35.4(L) 43.0 - 54.0 % 04/16/2025 1:38 AM CDT [facility] MCV 84.3 80.0 - 94.0 FL 04/16/2025 1:38 AM CDT [facility] MCH 26.7(L) 27.0 - 31.0 PG 04/16/2025 1:38 AM CDT [facility] MCHC 31.6(L) 32.0 - 36.0 G/DL 04/16/2025 1:38 AM CDT [facility] RDW 18.0(H) 11.5 - 14.5 % 04/16/2025 1:38 AM CDT [facility] PLT 148 130 - 400 x10'3/uL 04/16/2025 1:38 AM CDT [facility] MPV 11.2 9.3 - 12.2 FL 04/16/2025 1:38 AM CDT [facility] DIFFERENTIAL TYPE AUTOMATED DIFFERENTIAL 04/16/2025 1:38 AM CDT [facility] NEUTROPHILS % 76.1 % 04/16/2025 1:38 AM T [facility] LYMPHOCYTES % 14.2 % 04/16/2025 1:38 AM CDT [facility] MONOCYTES % 7.2 % 04/16/2025 1:38 AM CDT [facility] EOSINOPHILS 1.7 % 04/16/2025 1:38 AM CDT [facility] BASOPHILS 0.0 % 04/16/2025 1:38 AM T [facility] IMMATURE GRANS % 0.8 % 04/16/20 1:38 AM T [facility] ABS. NEUTROPHILS 9.46(H) 1.80 - 7.70 x10'3/uL 04/16/2025 1:38 AM CDT [facility] ABS. LYMPHOCYTES 1.76 1.00 - 4.80 x10'3/uL 04/16/2025 1:38 AM T [facility] ABS. MONOCYTES 0.90(H) 0.30 - 0.82 x10'3/uL 04/16/2025 1:38 AM CDT [facility] ABS. EOSINOPHILS 0.21 0.04 - 0.54 x10'3/uL 04/16/2025 1:38 AM CDT [facility] ABS. BASOPHILS 0.00(L) 0.01 - 0.08 x10'3/uL 04/16/2025 1:38 AM T [facility] ABS. IMMATURE GRANULOCYTES 0.10 0.00 - 0.49 x10'3/uL 04/16/2025 1:38 AM T [facility] RBC MORPHOLOGY RBC MORPHOLOGY APPEARS NORMAL. SLIDE REVIEWED. 04/16/2025 1:38 AM CDT [facility] PLT EST. ADEQUATE 04/16/2025 1:38 AM CDT [facility] 04/16/2025 12:2 3 AM CDT us [facility] Final Result [facility] [address] [place] [address], [place] [phone] * CT ABD+PEL WO CON (04/15/2025 10:57 PM CDT) Anatomical Region Laterality Modality Abdomen Computed Tomogra phy 04/15/2025 11:3 1 PM CDT Impressions 04/15/2025 11:37 PM CDT IMPRESSION: ===== 1. No noncontrast CT findings to explain hematuria. No acute abdominal or pelvic abnormalities within limitations of exam. 2. Hepatic steatosis. 3. Avascular necrosis of the bilateral femoral heads. 4. Degenerative disc disease at L5-S1. Referred By: Interpreted By: Caleb Martínez MD, 04/15/2025 11:31 PM Narrative 04/15/2025 11:37 PM CDT [facility] [address] [place], [place] [address] EXAMINATION: CT Abdomen and Pelvis without contrast EXAM DATE/TIME: 04/15/2025 10:45 PM REASON FOR EXAM: hematuria, back pain Back pain, blood in the urine, fatigue COMPARISON: None TECHNIQUE: Axial CT images of the abdomen and pelvis are obtained without the use of IV contrast agent. Subsequent coronal and sagittal reformatted sequences are created for evaluation. A dose lowering technique was used for this procedure, which may include, but is not limited to, dose reduction technique, automated exposure control, iterative reconstruction, ALARA (As Low As Reasonably Achievable), or Image Gently techniques. FINDINGS: Lung bases are clear. No evidence of pleural effusion. Heart size normal. No pericardial effusion. Liver and spleen normal in size and contour. Diffuse fatty infiltration throughout the liver. Gallbladder pancreas and adrenal glands unremarkable. No hydronephrosis on either side. No evidence of obstructive uropathy. Ureters are normal in caliber throughout. Abdominal aorta normal in caliber throughout. The bowel is normal in caliber throughout. No evidence of bowel obstruction. Bladder contours are smooth. No free fluid in the pelvis. Appendix is normal. Umbilical hernia contains only fat. Small area of midline abdominal wall diastases directly above the umbilicus. There is avascular the necrosis in the bilateral femoral heads. Degenerative disc disease at L5-S1. No acute fracture. ===== Procedure Note Caleb Martínez MD - 04/15/[address] [address] EXAMINATION: CT Abdomen and Pelvis without contrast EXAM DATE/TIME: 04/15/2025 10:45 PM REASON FOR EXAM: hematuria, back pain Back pain, blood in the urine, fatigue COMPARISON: None TECHNIQUE: Axial CT images of the abdomen and pelvis are obtained withoutthe use of IV contrast agent. Subsequent coronal and sagittal reformattedsequences are created for evaluation. A dose lowering technique was usedfor this procedure, which may include, but is not limited to, dosereduction technique, automated exposure control, iterative reconstruction,ALARA (As Low As Reasonably Achievable), or Image Gently techniques. FINDINGS: Lung bases are clear. No evidence of pleural effusion. Heartsize normal. No pericardial effusion. Liver and spleen normal in size and contour. Diffuse fatty infiltrationthroughout the liver. Gallbladder pancreas and adrenal glandsunremarkable. No hydronephrosis on either side. No evidence ofobstructive uropathy. Ureters are normal in caliber throughout.Abdominal aorta normal in caliber throughout. The bowel is normal incaliber throughout. No evidence of bowel obstruction. Bladder contoursare smooth. No free fluid in the pelvis. Appendix is normal. Umbilicalhernia contains only fat. Small area of midline abdominal wall diastasesdirectly above the umbilicus. There is avascular the necrosis in thebilateral femoral heads. Degenerative disc disease at L5-S1. No acutefracture. ===== IMPRESSION: ===== 1. No noncontrast CT findings to explain hematuria. No acute abdominalor pelvic abnormalities within limitations of exam. 2. Hepatic steatosis. 3. Avascular necrosis of the bilateral femoral heads. 4. Degenerative disc disease at L5-S1. Referred By: Interpreted By: Caleb Martínez MD, 04/15/2025 11:[address] Final Result from Last 3 Months Insurance Care Teams Materials Intern Relationship Specialty Start Date End Date Ray Moreno MD [address] [place] [address] PCP - General HOSPITALIST 12/22/24
--- OUTSIDE RECORDS SUMMARY | 2025-06-15 01:22 | XMS_ITS | Continuity of Care Document ---
Author Organization [employer], [facility] Address [address] [place] [address] Care Team Providers Care Gear Keeper Name Role Phone RAY MORENO Primary Care Provider [phone] Assessment Encounter Date Assessment Date Assessment LastModified by Organization Details LastModified Time 05/25/2025 05/25/2025 This note is dictated and transcribed by [employer]. Principal Military Analyst variances may occur. Despite proofreading, typographical errors may occur. Occasional wrong-word or 'xhata-h-lfsx' substitutions may have occurred due to the inherent limitations of voice recording. Read the chart carefully and recognize, using context, where substitutions have occurred. [email or web address] Not available 06/01/2025 14:18:22 Plan of Treatment Reminders Order Date Submit [...] Address Organization Details Recorded Time Morbid obesity 354903893 Active 2019 Ray Moreno MD [address] [facility], [facility] [address], [place], [address] , [employer] 5 17:50:52 Ex-smoker 7010265 Active 2019 Not Available [facility] 3 07:29:44 History of sepsis 2217696082605 00 Active 2019 Not Available [facility] 3 07:29:40 Acute kidney injury 49569868 Active 2019 Not Available [facility] 3 07:29:40 Persistent insomnia 315821953 Active 2019 Not Available [facility] 3 07:29:40 Steatotic liver disease 953810978 Active 2019 Not Available [facility] 3 07:29:40 Anemia 525371872 Active 2019 Ray Moreno MD [address] [facility], [address] [address], [place], [address] , [facility] 5 17:04:16 Peripheral edema 826839167 Active 2019 Not Available [facility] 3 07:29:41 Cellulitis of lower limb 921587683 Active 2019 Not Available [facility] 3 07:29:43 Candidiasi s of mouth 06866149 Active 2019 Not Available [facility] 3 07:29:44 Umbilical hernia 413510314 Active 2019 Not Available [facility] 3 07:29:42 Uncontroll ed type 2 diabetes mellitus 273820352 Active 2019 Not Available [facility] 3 07:29:43 Microscopi c hematuria 091652826 Active 2019 Not Available [facility] 3 07:29:41 Vitamin D deficiency 59220557 Active 2019 Not Available [facility] 3 07:29:42 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 2019 Not Available [facility] 3 07:29:43 History of atrial fibrillati on 590382583 Active 2019 Not Available [facility] 3 07:29:42 Type 2 diabetes mellitus without complicati on 309459469 Active 2019 Not Available [facility] 3 07:29:42 History of diabetes mellitus 196573583 Active 2019 Not Available [facility] 3 07:29:40 Increased frequency of urination 117614340 Active 2021 Not Available [facility] 3 07:29:40 Kole hematuria 684761851 Active 2021 Not Available [facility] 3 07:29:41 Blood in urine 71514525 Active 2021 Not Available [facility] 3 07:29:42 Lower urinary tract symptoms due to benign prostatic hypertroph y 3151316181949 1 Active 2021 Not Available [facility] 3 07:29:41 Disorder of prostate 78513205 Active 2021 Not Available [facility] 3 07:29:42 Active or passive immunizati on Active 2021 Not Available [facility] 3 07:29:40 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 Not Available [facility] 3 07:29:41 Adult health examinatio n Active 2021 Not Available [facility] 3 07:29:41 Urethral stricture 70582459 Active 2021 Not Available [facility] 3 07:29:44 Pain in right sacroiliac joint 3785698427484 9107 Active 2021 Not Available [facility] 3 07:29:40 Hypothyroi dism 54190241 Active 2021 Not Available [facility] 3 07:29:43 Swelling of bilateral lower limbs 999465875 Active 2021 Not Available [facility] 3 07:29:44 Acute urinary tract infection 126297791 Active 2021 Not Available [facility] 3 07:29:43 Bronchitis 45974357 Active 2021 Not Available [facility] 3 07:29:42 Cough 38970748 Active 2021 Not Available [facility] 3 07:29:43 Nasal congestion 63060999 Active 2022 Ray Moreno MD [address], [place], [address] , [place] [facility] 3 16:31:40 Seasonal allergic rhinitis 921556154 Active 2022 Ray Moreno MD [address], [address], [place], [address] , [place] [facility] 3 17:38:01 Lumbar spondylosi s 625930866 Active 2022 Ray Moreno MD [address], [address], [place], [address] , [place] [facility] 3 10:23:15 Sleep apnea 41694889 Active 2022 Ray Moreno MD [address], [address], [place], [address] , [place] [facility] 3 10:26:16 Hypertensi ve disorder 21401522 Active 2022 Ray Moreno MD [address], [address], [place], [address] , [place] [facility] 3 10:30:36 Pancreatit is 31801900 Active 2022 Ray Moreno MD [address], [address], [place], [address] , [place] [facility] 3 14:14:30 Liver enzymes level above reference range 601842731 Active 2022 Ray Moreno MD [address], [address], [place], [address] , [place] [facility] 3 14:26:53 [place] palsy of left side of face 2370958657167 9103 Active 2023 Ray Moreno MD [address], [address], [place], [address] , [place] [facility] 4 12:52:16 Weakness of left facial muscle 054403567 Active 2023 Ray Moreno MD [address], [address], [place], [address] , [place] [facility] 4 12:54:06 Fatigue 58743048 Active 2023 Ray Moreno MD [address], [address], [place], [address] , [place] [facility] 4 14:59:09 COVID-19 590169493 Active 2024 Ray Moreno MD [address], [address], [place], [address] , [place] [facility] 5 09:41:43 Fever with chills 001096284 Active 2024 Ray Moreno MD [address], [address], [place], [address] , [place] [facility] 5 09:42:06 Open wound of left lower leg 0104977958328 9106 Active 2024 Ray Moreno MD [address], [address], [place], [address] , [place] [facility] 5 17:36:38 Open wound of lower limb 32840060 Active 2024 Ray Moreno MD [address], [address], [place], [address] , [place] [facility] 5 17:37:18 Ulcer of lower extremity 33027593 Active 2024 Ray Moreno MD [address], [place], [address] , [place] [facility] 5 17:39:05 Swelling of lower leg 575255248 Active 2024 Ray Moreno MD [address], [address], [place], [address] , [place] [facility] 5 17:41:05 Open wound of lower limb 51473220 Active 2024 Thad Kenny DPM [address], [address], [place], [address] , [employer] 14:17:31 Lymphedema of limb 257343884 Active 2024 Thad Kenny DPM [address], [place], [address] , [employer] 5 17:38:13 Peripheral venous insufficie ncy 24166654 Active 2024 Thad Kenny DPM [address], [address], [place], [address] , [employer] 15:36:51 Pruritic rash 58806010 Active 2024 Thad Kenny DPM [address], [place], [address] , [employer] 12:15:14 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 sm 01553904 Active 2024 Ray Moreno MD [address], [place], [address] , [employer] 16:31:18 Primary hypothyroi dism 81835467 Active 2024 Ray Moreno MD [address], [place], [address] , [employer] 17:02:26 Stasis dermatitis 23841539 Active 2024 Ray Moreno MD [address], [place], [address] , [employer] 5 17:17:05 Insect bite of lower limb 696062321 Active 2024 Thad Kenny DPM [address], [place], [address] , [employer] 14:16:52 Open wound of toe 692963132 Active 2024 Thad Kenny DPM [address], [facility] [address], [place], [address] , [employer] 5 09:20:59 Eczema of lower limb 024665601 Active 2024 Ray Moreno MD [address] [facility], [facility] [address], [place], [address] , [employer] 5 17:16:58 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 962050839 Active 2024 Ray Moreno MD [address] [facility], [facility] [address], [place], [address] , [employer] 5 17:19:16 Abnormal gait 68320431 Active 2024 Ray Moreno MD [address], [facility] [address], [place], [address] , [employer] 5 17:40:46 Ulcer of toe of left foot Active 2024 Thad Kenny DPM [address], [facility] [address], [place], [address] , [employer] 5 09:02:30 Notes:Ray Moreno MD [phone] [facility] home sleep study 01/02/23 AHI = 41, [...] 5 Wound Care-Podiatry completed Celia Li RN [facility] [employer] 05/25/2025 12:24:51 5 Wound Care-Podiatry completed Celia Li RN [facility] [employer] 05/11/2025 12:39:44 5 Wound Care-Podiatry completed Thad Kenny DPM [address], [place], [address], [employer] [facility] [employer] [facility] 04/27/2025 13:57:28 5 Wound Care-Podiatry completed Thad Kenny DPM [address], [place], [address], [facility] [employer] [facility] [employer] [facility] 04/21/2025 15:27:03 5 Wound Care-Podiatry completed Celia Li RN [facility] [employer] [facility] 04/13/2025 15:26:01 5 Transitional_C are_Management completed Tanya Moran RN [facility] [employer] [facility] 04/12/2025 17:03:42 5 Wound Care-Podiatry completed Thad Kenny DPM [address], [place], [address], [employer] [facility] [employer] [facility] 04/04/2025 09:19:04 5 Wound Care-Podiatry completed Celia Li RN [facility] [employer] [facility] 03/23/2025 13:10:00 5 Wound Care-Podiatry completed Celia Li RN [facility] [employer] [facility] 03/16/2025 11:32:52 5 Wound Care-Podiatry completed Celia Li RN [facility] [employer] [facility] 03/09/2025 10:07:15 5 Wound Care-Podiatry completed Celia Li RN [facility] [employer] [facility] 03/02/2025 11:48:48 5 Wound Care-Podiatry completed Celia Li RN [facility] [employer] [facility] 02/23/2025 12:01:59 5 Wound Care-Podiatry completed Celia Li RN [facility] [employer] [facility] 02/16/2025 11:40:09 5 Wound Care-Podiatry completed Justice Dave RN [place] [facility] [employer] [facility] 02/09/2025 10:23:16 5 Wound Care-Podiatry completed Thad Kenny DPM [address], [place], [address], [facility] 02/02/2025 13:37:03 5 Wound Care-Podiatry completed Celia Li RN [facility] [employer] [facility] 01/26/2025 15:49:01 5 Wound Care-Podiatry completed Thad Kenny DPM [address], [place], [address], [facility] 01/19/2025 13:31:19 5 Wound Care-Podiatry completed Justice Dave RN [facility] [facility] 01/17/2025 09:01:39 5 Wound Care-Podiatry completed Celia Li RN [facility] 01/05/2025 17:17:17 2 Hernia Surgery completed Not Available [facility] 09/18 07:26:20 Vasectomy completed Not Available [facility] 0 09/18/2022 07:26:20 Imaging Results None recorded. Procedure Notes None recorded. Medical Equipment None Reported. Allergies Allergen ID Allergen Name Allergen Category Reaction Reaction Severity Criticality Documentation Date Start Date Code Code System Note Provider Name and Address Organization Details Recorded Time 61729 peanut allergeni c extract food,medi cation itching mild Not available 09/18/2022 70743 8 RxNorm Not Available [facility] 3 07:34:13 92228 prednison e medicatio n other Not available high 12/28/20242019 8640 RxNorm Hyper glyce hipolito Blood sugar s shoot up to above 800 DARRICK May [facility] 5 17:32:35 33709 Betadine medicatio n other severe high 04/12/20252024 33653 0 RxNorm blist ers, sores DARRICK May [facility] 17:11:56 93451 prednisol one medicatio n Not available Not available Not available 06/03/20252024 8638 RxNorm Not Available more - External Data Service - prod 09:05:32 27248 iodine medicatio n Not available Not available Not available 06/03/20252024 5933 RxNorm bill schneider ed react ion (text : Conta ct [place] titis , code: 51293 004) [facility] Not Available more - External Data Service [...] administ ered by the provider 11/25 completed [facility]: 0003-049 11-07 Not Available Not Available Not [...] e Shiloh Pen Needle 32 gauge x 5/32 USE WITH INSULIN PENS QID UTD 05/16 [...] Available Vitals Date Recorded Body height Body temperature Respiratory rate Heart rate Oxygen saturation Systolic And Diastolic Provider Name and Address Organization Details Last Updated DateTime 175.26 cm 98.5 [degF] 18 /min 70 /min 96 % 142/79 mm[Hg] Celia Li RN [place] [facility] [employer] 5 12:22:02 Social History Question Answer Notes LastModified by Organizat ion Details LastModified Time Tobacco Smoking Status Former [facility]oker [facility] in 2017 [facility] 09/18/2022 07:25:57 Do You Have An Advance Directive? No MIGRATION.11951 13608 Information not available 09/18/2022 Do You Wear A Helmet When Biking? No MIGRATION.53928 55708 Information not available 09/18/2022 What Is Your Level Of Caffeine Consumption? Moderate MIGRATION.16291 33172 Information not available 09/18/2022 In The 14 Days Before Symptom Onset, Have You Had Close Contact With A Laboratory-confi rmed COVID-19 While That Case Was Ill? No MIGRATION.72988 57362 Information not available 09/18/2022 In The 14 Days Before Symptom Onset, Have You Had Close Contact With A Person Who Is Under Investigation For COVID-19 While That Person Was Ill? No MIGRATION.47158 44148 Information not available 09/18/2022 What Type Of Diet Are You Following? REGULAR MIGRATION.81620 30325 Information not available 09/18/2022 What Is The Highest Grade Or Level Of School You Have Completed Or The Highest Degree You Have Received? VQ53754-5 MIGRATION.83674 57914 Information not available 09/18/2022 Have There Been Any Changes To Your Family Or Social Situation? No MIGRATION.43391 39201 Information not available 09/18/2022 When Did You Quit Smoking? 1-5yearssincelastc igarette MIGRATION.09133 25967 Information not available 09/18/2022 Are There Any Guns Present In Your Home? No MIGRATION.81477 64633 Information not available 09/18/2022 Do You Use Insect Repellent Routinely? No MIGRATION.05402 16705 Information not available 09/18/2022 [facility] M[facility].55473 22964 Information not available 09/18/2022 Do You Have A Medical Power Of Product Marketing Specialist? No MIGRATION.70664 35585 Information not available 09/18/2022 Have You Ever Been Counseled For Unhealthy Alcohol Use? No MIGRATION.75289 66505 Information not available 09/18/2022 Do You Have Any Pets? Yes MIGRATION.12847 07913 Information not available 09/18/2022 What Is Your Relationship Status? MIGRATION.94808 49838 Information not available 09/18/2022 Do You Use Your Seat Belt Or Car Seat Routinely? Yes MIGRATION.53907 14262 Information not available 09/18/2022 Do You Have Smoke And Carbon Monoxide Detectors In Your Home? Yes MIGRATION.76793 34121 Information not available 09/18/2022 Are You Passively Exposed To Smoke? No MIGRATION.71819 92232 Information not available 09/18/2022 Are There Any Smokers In Your House? No MIGRATION.72363 22921 Information not available 09/18/2022 Do You Participate In Social Media? No MIGRATION.28719 90019 Information not available 09/18/2022 Do You Use Sunscreen Routinely? Yes MIGRATION.05162 54431 Information not available 09/18/2022 Has Tobacco Cessation Counseling Been Provided? No MIGRATION.14982 42948 Information not available 09/18/2022 Have You Recently Traveled Abroad? No MIGRATION.27373 91252 Information not available 09/18/2022 Are You Currently In School? No MIGRATION.10282 30400 Information not available 09/18/2022 Do You Have Any Dietary Restrictions? No MIGRATION.08153 96282 Information not available 09/18/2022 Sex: Male Functional Status Question Answer Note LastModified by Organizat ion Details LastModified Time Do you or have you ever used any other forms of tobacco or nicotine? No MIGRATION.17982876 26 Information not available 09/18/2022 What is your level of alcohol consumption? None MIGRATION.71651339 26 Information not available 09/18/2022 What is your exercise level? Occasional MIGRATION.96326469 26 Information not available 09/18/2022 Mental Status None recorded. Family History Relationship Description Onset Age of this Age Resolved Age Notes LastModified by Organization Details LastModified Time Sister Hypertensive disorder MIGRATION.248 [id number] Not available 09/18/2022 07:26:21 Maternal Grandfather Malignant neoplasm of prostate MIGRATION.895 3808196 Not available 09/18/2022 07:26:21 Mother Malignant neoplasm of breast MIGRATION.661 6416322 Not available 09/18/2022 07:26:21 Medical History Condition Response CYSTITIS N BLINDNESS N RHEUMATIC FEVER N BLADDER PROBLEMS N KIDNEY STONES N Enlarged Prostate N MRSA N OTHER # 1 N POLIO N LUNG DISEASE/DISORDER N HISTORY OF DRUG ABUSE N RADIATION / CHEMOTHERAPY N COPD N Other # 2 N BLOOD DISEASES N SURGERY N EAR OR HEARING PROBLEMS N MUMPS N SHINGLES N DEPRESSION (INCLUDING POST ) N BOWEL PROBLEMS N FEMALE PROBLEMS / INFECTIONS N STROKE/TIA [...] HAVE YOU BEEN HOSPITALIZED OR SEEN IN [facility] IN THE PAST YEAR ? Y ATHEROSCLEROSIS [...] Recorded Time HPV9 09/10/2021 completed Not Available [facility] 09/18/2022 07:34:06 Influenza, split virus, quadrivalent, PF 05/16/2020 completed Not Available [facility] 07:34:07 HPV9 05/16/2020 completed Not Available [facility] 09/18/2022 07:34:07 Tdap 09/16/2019 completed Not Available [facility] 09/18/2022 07:34:07 HPV9 12/18/2022 completed Karon Arredondo RN null, [facility] [facility] 12/18/2022 12:40:48 Influenza, split virus, trivalent, PF 07/01/2024 completed Tanya Moran RN null, [facility] 07/02/2024 10:32:24 Past Encounters Encounter ID Performer Location Encounter Start Date Encounter Closed Date Diagnosis/Indication Diagnosis SNOMED-CT Code Diagnosis ICD10 Code Diagnosis IMO Codes Diagnosis Note [id number] Thad Kenny DPM [facility] [address] [place] [address] 04/27/2025 11:55:42 04/27/2025 14:24:22 Open wound of lower limb 11230696 S81.801D S81.802D 9683474407 resolved Ulcer of t oe of left foot 1570147720 2860502 L97.522 31723902 multiple- toesdaily dressingsm onitor for signs of infectionf ollow-up on week Peripheral venous insufficiency 27552578 I87.2 73887 continue chronic compressio nfollow-up with vascular [id number] Thad Kenny DPM [facility] [address] [place] [address] 05/11/2025 12:08:02 05/11/2025 14:19:43 Ulcer of toe of left foot 8025175804 9227184 L97.522 13937736 3 woundsdail y dressingsm onitor for signs of infectionf ollow-up on week Peripheral venous insufficiency 11930527 I87.2 05298 continue chronic compressio nfollow-up with vascular [id number] Ray Moreno MD [facility] [address] [address] 05/18/2025 09:19:01 05/18/2025 09:43:37 [id number] Thad Kenny DPM [facility] [address] [place] [address] 05/25/2025 11:59:24 06/01/2025 14:59:23 Ulcer of toe of left foot 3993954947 0586079 L97.522 16429129 Healedfoll ow-up as needed Peripheral venous insufficiency 22448283 I87.2 08207 continue chronic compressio nfollow-up with vascular Health Concerns Section Related Observation LastModified by Organization Detai ls LastModified Time None Recorded Concern Status LastModified by Organization Details LastModified Time None Recorded Payers Encounter Date Sequence Insurance Name Policy Number Policy Leonard Covered Member ID Leonard Member ID Guarantor Name 05/25/2025 1 [facility] [id number] Zheng Carrizales [id number] Zheng Carrizales Notes Date Note Type Note Provider Name and Address Organization Details Recorded Time 05/25/2025 text/html . Patient is a 40-year-old male who returns the office for follow-up on wounds which are completely healed he denies any new complaints. Thad Kenny DPM [address] [facility] [address], [facility] [address], [place], [address], [facility] 06/01/2025 14:19:00
--- OUTSIDE RECORDS SUMMARY | 2025-06-15 01:22 | XMS_ITS | Clinical Summary ---
Author Organization [facility] [employer] Address [address] [place] [address] Care Team Providers Care Staff Counsel Name Role Phone Ray Moreno MD Primary Care Provider [phone] Source Comments [facility],non-owned Affiliates and Associated Physician Practices is amultiple site organization consisting of ambulatory clinics and hospital sitesin [place], [place], [place] and [place]. This disclosure is being madepursuant to the Care Everywhere program and may not contain all information available regarding this patient. Last updated 18.[facility] [employer] Allergies Active Allergy Reactions Criticality Noted Date [...] Active vitamin D, ergocalciferol, (Drisdol) 1.25 MG (95583 UT) capsule Take 1 (one) capsule by [...] and heating? Not hard at all 05/27/2023 [facility] Occupat ional Health - Occupational Stress [...] place to sleep or slept in a group home (including now)? No 05/27/2023 Sex and Gender Information Value Date Recorded Sex Assigned at Male 02/14/2024 3:53 PM CDT Legal Sex Male 3:47 PM SLEDGER Gender Identity Male 02/14/2024 3:53 PM CDT Sexual Orientation Straight 02/14/2024 3: 53 PM CDT Last Filed Vital Signs Vital Sign Reading Time Taken Comments Blood Pressure 137/85 05/29/2023 11:19 AM SLEDGER Pulse 67 05/29/2023 11:19 AM SLEDGER Temperature 37 C (98.6 F) 05/29/2023 11:19 AM SLEDGER Respiratory Rate 18 05/29/2023 3:32 AM SLEDGER Oxygen Saturation 100% 05/29/2023 11: 19 AM SLEDGER Inhaled Oxygen Concentration - - Weight 156.1 kg (344 lb 2.2 oz) 023 10:09 PM SLEDGER Height 175.3 cm (5' 9.02) 05/27/2023 1 0:09 PM SLEDGER Body Mass Index 50.8 05/27/2023 10:09 PM SLEDGER Plan of Treatment Health Maintenance Due Date [...] patient's age to complete this topic Insurance [facility] Advance Directives * Full Code (Latest Code Status on File) Date Activated Date Inactivated Comments 05/27/2023 10:17 PM 05/29/2023 1:19 PM Care Teams Staff Counsel Relationship Specialty Start Date End Date Ray Moreno MD [address] [place] [phone] PCP - General Family Medicine 05/28/23
--- OUTSIDE RECORDS SUMMARY | 2025-06-15 01:22 | XMS_ITS | Continuity of Care Document ---
Author Organization [place] [facility] [employer] [facility], [facility] Address [address] [place] [address] Care Team Providers Care Junior Database Administrator Name Role Phone RAY MORENO Primary Care Provider [phone] Assessment Encounter Date Assessment Date Assessment LastModified by Organization Details LastModified Time 03/16/2025 03/16/2025 This note is dictated and transcribed by [employer]. [employer] variances may occur. Despite proofreading, typographical errors may occur. Occasional wrong-word or '[id number]' substitutions may have occurred due to the inherent limitations of voice recording. Read the chart carefully and recognize, using context, where substitutions have occurred. [email or web address] Not available 03/16/2025 11:49:38 Plan of Treatment Reminders Order Date Submit [...] Abnormal Flag Note LastModifiedBy Organization Detail LastModifiedTime 02/18/2002/17/2025 CBC/C OMPLE TE BLD COUNT W/DIF F white blood cells 7.2 x10'3 /uL 4.2-10 .8 Not Available [facility] (Lab) [address] [place], [address], 02/17/2025 12:55:05 02/18/2011 0202/17/2025 CBC/C OMPLE TE BLD COUNT W/DIF F red blood cells 4.88 x10'6 /uL 4.10-5 .80 Not Available [facility] (Lab) [address] [place], [address], 02/17/2025 12:55:05 02/18/20 25 02/17/2025 CBC/C OMPLE TE BLD COUNT W/DIF F hemoglobin 12.5 g/dL 13.2-1 7.0 low Not Available [facility] (Lab) [address] [place], [address], 02/17/2025 12:55:05 02/18/20 25 02/17/2025 CBC/C OMPLE TE BLD COUNT W/DIF F hematocrit 42.0 % 39.3-5 0.0 Not Available [facility] (Lab) [address] [place], [address], 02/17/2025 12:55:05 02/18/20 25 02/17/2025 CBC/C OMPLE TE BLD COUNT W/DIF F mean red cell volume 86.1 fL 80.0-9 7.0 Not Available [facility] (Lab) [address] [place], [address], 02/17/2025 12:55:05 02/18/20 25 02/17/2025 CBC/C OMPLE TE BLD COUNT W/DIF F mean red cell hemoglobin 25.6 pg 27.0-3 3.0 low Not Available [facility] (Lab) [address] [place], [address], 02/17/2025 12:55:05 02/18/20 25 02/17/2025 CBC/C OMPLE TE BLD COUNT W/DIF F mean RBC HGB concentratio n 29.8 g/dL 31.0-3 6.0 low Not Available [facility] (Lab) [address] [place], [address], 02/17/2025 12:55:05 02/18/20 25 02/17/2025 CBC/C OMPLE TE BLD COUNT W/DIF F red cell distribution width 15.9 % 11.8-1 5.5 high Not Available [facility] (Lab) [address] [place], [address], 02/17/2025 12:55:05 02/18/20 25 02/17/2025 CBC/C OMPLE TE BLD COUNT W/DIF F platelets 216 x10'3 /uL 150-40 0 Not Available [facility] (Lab) [address] [place], [address], 02/17/2025 12:55:05 02/18/20 25 02/17/2025 CBC/C OMPLE TE BLD COUNT W/DIF F mean platelet volume 10.1 fL 9.0-12 .4 Not Available [facility] (Lab) [address] [place], [address], 02/17/2025 12:55:05 02/18/20 25 02/17/2025 CBC/C OMPLE TE BLD COUNT W/DIF F neutrophils 65.1 % 39.0-7 2.0 Not Available [facility] (Lab) [address] [place], [address], 02/17/2025 12:55:05 02/18/20 25 02/17/2025 CBC/C OMPLE TE BLD COUNT W/DIF F lymphocytes 24.5 % 16.0-4 7.0 Not Available [facility] (Lab) [address] [place], [address], 02/17/2025 12:55:05 02/18/20 25 02/17/2025 CBC/C OMPLE TE BLD COUNT W/DIF F monocytes 7.3 % 5.0-12 .0 Not Available [facility] (Lab) [address] [place], [address], 02/17/2025 12:55:05 02/18/20 25 02/17/2025 CBC/C OMPLE TE BLD COUNT W/DIF F eosinophils 2.2 % 1.0-7. 0 Not Available [facility] (Lab) [address] [place], [address], 02/17/2025 12:55:05 02/18/20 25 02/17/2025 CBC/C OMPLE TE BLD COUNT W/DIF F basophils 0.6 % 0.0-2. 0 Not Available [facility] (Lab) [address] [place], [address], 02/17/2025 12:55:05 02/18/2002/17/2025 CBC/C OMPLE TE BLD COUNT W/DIF F immature granulocytes 0.3 % 0.00-0 .50 Not Available [facility] (Lab) [address] [place], [address], 02/17/2025 12:55:05 02/18/20 25 02/17/2025 CBC/C OMPLE TE BLD COUNT W/DIF F neutrophils, absolute count 4.67 x10'3 /uL 1.5-8. 0 Not Available [facility] (Lab) [address] [place], [address], 02/17/2025 12:55:05 02/18/20 25 02/17/2025 CBC/C OMPLE TE BLD COUNT W/DIF F lymphocytes, absolute count 1.76 x10'3 /uL 1.07-3 .43 Not Available [facility] (Lab) [address] [place], [address], 02/17/2025 12:55:05 02/18/20 25 02/17/2025 CBC/C OMPLE TE BLD COUNT W/DIF F monocytes, absolute count 0.52 x10'3 /uL 0.29-0 .99 Not Available [facility] (Lab) [address] [place], [address], 02/17/2025 12:55:05 02/18/20 25 02/17/2025 CBC/C OMPLE TE BLD COUNT W/DIF F eosinophils, absolute count 0.16 x10'3 /uL 0.02-0 .53 Not Available [facility] (Lab) [address] [place], [address], 02/17/2025 12:55:05 02/18/20 25 02/17/2025 CBC/C OMPLE TE BLD COUNT W/DIF F basophils, absolute count 0.04 x10'3 /uL 0.01-0 .08 Not Available [facility] (Lab) [address] [place], [address], 02/17/2025 12:55:05 02/18/20 25 02/17/2025 CBC/C OMPLE TE BLD COUNT W/DIF F immature granulocytes ,absolute 0.02 x10'3 /uL 0.00-0 .05 Not Available [facility] (Lab) [address] [place], [address], 02/17/2025 12:55:05 02/18/20 25 02/17/2025 CBC/C OMPLE TE BLD COUNT W/DIF F nucleated red blood cells 0.0 % -0 Not Available [facility] (Lab) [address] [place], [address], 02/17/2025 12:55:05 02/18/20 25 02/17/2025 CBC/C OMPLE TE BLD COUNT W/DIF F NRBC# 0.00 x10'3 /uL Not Available [facility] (Lab) [address] [place], [address], 02/17/2025 12:55:05 02/18/20 25 02/17/2025 CBC/C OMPLE TE BLD COUNT W/DIF F anisocytosis OCCASI ONAL Not Available [facility] (Lab) [address] [place], [address], 02/17/2025 12:55:05 02/18/20 25 02/17/2025 CBC/C OMPLE TE BLD COUNT W/DIF F poikilocytos is OCCASI ONAL Not Available [facility] (Lab) [address] [place], [address], 02/17/2025 12:55:05 02/18/20 25 02/17/2025 CBC/C OMPLE TE BLD COUNT W/DIF F hypochromia OCCASI ONAL Not Available [facility] (Lab) [address] [place], [address], 02/17/2025 12:55:05 02/18/20 25 02/17/2025 CBC/C OMPLE TE BLD COUNT W/DIF F ovalocytes OCCASI ONAL Not Available [facility] (Lab) [address] [place], [address], 02/17/2025 12:55:05 02/18/20 25 02/17/2025 COMPR EHENS BECKY METAB OLIC PANEL sodium 142 mmol/ L 137-14 5 Not Available [facility] (Lab) [address] [place], [address], 02/17/2025 13:20:43 02/18/20 25 02/17/2025 COMPR EHENS BECKY METAB OLIC PANEL potassium 4.4 mmol/ L 3.5-5. 1 Not Available [facility] (Lab) [address] [place], [address], 02/17/2025 13:20:43 02/18/20 25 02/17/2025 COMPR EHENS BECKY METAB OLIC PANEL chloride 106 mmol/ L 98-107 Not Available [facility] (Lab) [address] [place], [address], 02/17/2025 13:20:43 02/18/20 25 02/17/2025 COMPR EHENS BECKY METAB OLIC PANEL carbon dioxide 30 mmol/ L 22-30 Not Available [facility] (Lab) [address] [place], [address], 02/17/2025 13:20:43 02/18/20 25 02/17/2025 COMPR EHENS BECKY METAB OLIC PANEL anion gap 10.4 mmol/ L 14-22 low Not Available [facility] (Lab) [address] [place], [address], 02/17/2025 13:20:43 02/18/20 25 02/17/2025 COMPR EHENS BECKY METAB OLIC PANEL glucose 118 mg/dL 70-99 high Not Available [facility] (Lab) [address] [place], [address], 02/17/2025 13:20:43 02/18/20 25 02/17/2025 COMPR EHENS BECKY METAB OLIC PANEL BUN 24 mg/dL 8-19 high Not Available [facility] (Lab) [address] [place], [address], 02/17/2025 13:20:43 02/18/20 25 02/17/2025 COMPR EHENS BECKY METAB OLIC PANEL creatinine 1.27 mg/dL 0.66-1 .25 high Not Available [facility] (Lab) [address] [place], [address], 02/17/2025 13:20:43 02/18/20 25 02/17/2025 COMPR EHENS BECKY METAB OLIC PANEL GFR >60 Refer ence Range : [place] ge GFR Healt hy Adult : >60 mL/mi n/1.7 3 m2 Chron ic Kidne y Disea se: 15-60 mL/mi n/1.7 3 m2 Kidne y Failu re: <15/m L/min /1.73 m2 www.n iddk. nih.g ov The MDRD study equat ion has not been valid ated in child debby <18 years of age; pregn ant women ; the elder ly >85 years of age; or in some racia l or ethni c subgr oups, such as Hispa nics. Outsi de the valid ated morenita eters , estim ated GFR is less accur ate, requi ring clini rizwana judgm ent on a case- by-ca se basis . Clini rizwana inter preta tion for other races and ages must be made by the clini jaime. The MDRD study equat ion has not been valid ated for the evalu ation of serum creat inine relat ed to nutri belkis l statu s or medic ation usage . For perso ns <18 years of age, a pedia tric GFR calcu lator is avail able on the [facility] websi te: https ://ashley leal.vee uriarte.o rg/pr ofess ional s/kdo qi/gf r_cal culat or Not Available [facility] (Lab) [address] [place], [address], 02/17/2025 13:20:43 02/18/20 25 02/17/2025 COMPR EHENS BECKY METAB OLIC PANEL alkaline phosphatase 71 U/L 38-126 Not Available [facility] (Lab) [address] [place], [address], 02/17/2025 13:20:43 02/18/20 25 02/17/2025 COMPR EHENS BECKY METAB OLIC PANEL alanine aminotransfe rase 16 U/L 0-50 Not Available [facility] (Lab) [address] [place], [address], 02/17/2025 13:20:43 02/18/20 25 02/17/2025 COMPR EHENS BECKY METAB OLIC PANEL aspartate aminotransfe rase 19 U/L 15-46 Not Available [facility] (Lab) [address] [place], [address], 02/17/2025 13:20:43 02/18/20 25 02/17/2025 COMPR EHENS BECKY METAB OLIC PANEL bilirubin, total 0.50 mg/dL 0.20-1 .30 Not Available [facility] (Lab) [address] [facility] [place], [address], 02/17/2025 13:20:43 02/18/20 25 02/17/2025 COMPR EHENS BECKY METAB OLIC PANEL calcium 9.1 mg/dL 8.4-10 .2 Not Available [facility] (Lab) [address] [place], [address], 02/17/2025 13:20:43 02/18/20 25 02/17/2025 COMPR EHENS BECKY METAB OLIC PANEL total protein 6.4 g/dL 6.3-8. 2 Not Available [facility] (Lab) [address] [place], [address], 02/17/2025 13:20:43 02/18/20 25 02/17/2025 COMPR EHENS BECKY METAB OLIC PANEL albumin 3.5 g/dL 3.4-5. 0 Not Available [facility] (Lab) [address] [place], [address], 02/17/2025 13:20:43 02/18/20 25 02/17/2025 COMPR EHENS BECKY METAB OLIC PANEL globulin 2.9 g/dL 2.6-4. 2 Not Available [facility] (Lab) [address] [place], [address], 02/17/2025 13:20:43 02/18/20 25 02/17/2025 COMPR EHENS BECKY METAB OLIC PANEL A/G ratio 1.2 ratio 1.0-2. 0 Not Available [facility] (Lab) [address] [place], [address], 02/17/2025 13:20:43 02/18/20 25 02/17/2025 LIPID PANEL cholesterol 160 mg/dL 140-19 9 NIH DOTTIE NSUS RECOM MENDA TION FOR GUZMAN STERO L: ADULT CHILD LOW RISK: <200 <170 BORDE RLINE : <200- 239 ----- HIGH RISK: >240 >200 Not Available [facility] (Lab) [address] [place], [address], 02/17/2025 13:20:53 02/18/20 25 02/17/2025 LIPID PANEL triglyceride s 99 mg/dL 0-150 NIH DOTTIE NSUS REPOR T RECOM MENDA TION FOR TRIGL YCERI MARIUSZ: ADULT CHILD LOW RISK: <150 ----- BODER LINE: 150-1 99 ----- HIGH RISK: >200 ----- Not Available [facility] (Lab) [address] [place], [address], 02/17/2025 13:20:53 02/18/20 25 02/17/2025 LIPID PANEL HDL cholesterol 42 mg/dL 40- Not Available [facility] (Lab) [address] [place], [address], 02/17/2025 13:20:53 02/18/20 25 02/17/2025 LIPID PANEL LDL cholesterol, calculated 98 mg/dL 0-130 NIH DOTTIE NSUS REPOR T RECOM MENDA TIONS FOR LDL: ADULT CHILD LOW RISK <130 <110 (OPTI MAL LDL) <100 ----- BORDE RLINE : 130-1 59 ----- HIGH RISK: >160 >130 A TRIGL YCERI DE RESUL T >400 INVAL IDATE S THE CALCU LATIO N FOR LDL FRACT IONAT ION - THE LDL RESUL T WILL NOT BE REPOR VIJAYA. Not Available [facility] (Lab) [address] [place], [address], 02/17/2025 13:20:53 02/18/20 25 02/17/2025 CORTI VASQUEZ, TOTAL , A.M. luis felipe AM 15.1 ug/dL 4.5-22 .7 Not Available [facility] (Lab) [address] [place], [address], 02/17/2025 13:37:59 02/18/20 25 02/17/2025 VITAM IN D 25-HY DROXY vd25oh 16.5 NG/mL 30-100 low Vitam in D Statu s: Defic ient: <20 ng/mL Insuf ficie nt: 20-29 ng/mL Suffi cient : 30-10 0 ng/mL Not Available [facility] (Lab) [address] [place], [address], 02/17/2025 14:16:33 02/18/2002/17/2025 TSH W/REF LISSETT FT4 TSH with reflex free T4 6.600 uIU/m L 0.465- 4.680 high Not Available [facility] (Lab) [address] [place], [address], 02/17/2025 14:35:59 02/18/20 25 02/17/2025 PSA SCREE N PSA medicare screen 0.41 NG/mL 0.00-4 .00 Not Available [facility] (Lab) [address] [place], [address], 02/17/2025 14:36:04 02/18/20 25 02/17/2025 FOLAT E, SERUM /PLAS MA folate 4.73 NG/mL 2.76-2 0.0 Not Available [facility] (Lab) [address] [place], [address], 02/17/2025 15:01:12 02/18/20 25 02/17/2025 VITAM IN B12 (KATE MARY ) vb12 389 pg/mL 239-93 1 Not Available [facility] (Lab) [address] [place], [address], 02/17/2025 15:01:17 02/18/20 25 02/17/2025 T4 FREE free T4 1.17 NG/dL 0.78-2 .19 Not Available [facility] (Lab) [address] [place], [address], 02/17/2025 15:23:36 02/18/2002/17/2025 HEMOG LOBIN A1C HA1C 5.9 % 4.0-6. 0 Diabe ginette Scree angel Crite mary: <5.7% Consi stent with absen ce of diabe ginette 5.7-6 .4% Consi stent with incre ased risk for diabe ginette (pred iabet es) >OR=6 .5% Consi stent with diabe ginette REFER ENCE: Diabe ginette Care 2016, 39(Merida ppl.1 ):s13 -s22 Not Available [facility] (Lab) [address] [place], [address], 02/17/2025 20:38:10 02/18/20 25 02/23/2025 TESTO STERO NE, FREE+ TOTAL LC/MS testosterone , total, lc/MS 128.3 NG/dL 264.0- 916.0 low This [facility] LC/MS -MS metho d is curre ntly certi fied by the CDC Hormo ne Stand ardiz ation Progr am (HoSt ). Adult male refer ence inter dhruv is based on a popul ation of healt hy nonob [place] males (BMI <30) betwe en 19 and 39 years old. Marvel orellana, et.al . JCEM 2017, 102;1 161-1 173. PMID: 82681 103. Not Available [facility] (Lab) [address] [place], [address], 02/23/2025 11:11:44 02/18/20 25 02/23/2025 TESTO STERO NE, FREE+ TOTAL LC/MS testosterone , free 4.20 NG/dL 5.00-2 1.00 low Not Available [facility] (Lab) [address] [place], [address], 02/23/2025 11:11:44 02/18/20 25 02/23/2025 TESTO STERO NE, FREE+ TOTAL LC/MS % free testosterone 3.27 % 1.50-4 .20 Perfo rmed at: [facility] - [facility] [place] [address] [facility] , [place] [address] Lab Direc tor: Lorri nunn MD, Phone : [phone] Not Available [facility] (Lab) [address], [place], [address], 02/23/2025 11:11:44 04/05/20 25 04/05/2025 XR, foot No observ ation record ed. [address] [facility], [place], [address], 04/12/2025 17:16:09 04/06/20 25 04/06/2025 US, renal No observ ation record ed. [address] [facility], [place], [address], 04/12/2025 17:16:09 Result Notes None recorded. Problems Name Problem SNOMED Code Status Onset Date Resolution Date Notes Provider Name and Address Organization Details Recorded Time Morbid obesity 454147602 Active 2019 Ray Moreno MD [address], [facility] [address], [place], [address] , [facility] [employer] 5 17:50:52 Ex-smoker 5416232 Active 2019 Not Available [employer] 3 07:29:44 History of sepsis 1131245923965 00 Active 2019 Not Available [employer] 3 07:29:40 Acute kidney injury 65968578 Active 2019 Not Available [employer] 3 07:29:40 Persistent insomnia 411835471 Active 2019 Not Available [employer] 3 07:29:40 Steatotic liver disease 085370486 Active 2019 Not Available [employer] 3 07:29:40 Anemia 347066660 Active 2019 Ray Moreno MD [address] [facility], [facility] [address], [place], [address] , [place] [facility] 5 17:04:16 Peripheral edema 171920106 Active 2019 Not Available [facility] 3 07:29:41 Cellulitis of lower limb 010177366 Active 2019 Not Available [employer] 3 07:29:43 Candidiasi s of mouth 12309844 Active 2019 Not Available [employer] 3 07:29:44 Umbilical hernia 714424879 Active 2019 Not Available [employer] 3 07:29:42 Uncontroll ed type 2 diabetes mellitus 290646797 Active 2019 Not Available [employer] 3 07:29:43 Microscopi c hematuria 242986359 Active 2019 Not Available [employer] 3 07:29:41 Vitamin D deficiency 03709910 Active 2019 Not Available [employer] 3 07:29:42 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 Not Available [employer] 3 07:29:43 History of atrial fibrillati on 062072640 Active 2019 Not Available [facility] 3 07:29:42 Type 2 diabetes mellitus without complicati on 384445842 Active 2019 Not Available [employer] 3 07:29:42 History of diabetes mellitus 990005792 Active 2019 Not Available [employer] 3 07:29:40 Increased frequency of urination 833674172 Active 2021 Not Available [employer] 3 07:29:40 Kole hematuria 125042312 Active 2021 Not Available [employer] 3 07:29:41 Blood in urine 34258549 Active 2021 Not Available [employer] 3 07:29:42 Lower urinary tract symptoms due to benign prostatic hypertroph y 3954930844306 1 Active 2021 Not Available [employer] 3 07:29:41 Disorder of prostate 95009448 Active 2021 Not Available [facility] 3 07:29:42 Active or passive immunizati on Active 2021 Not Available [employer] 3 07:29:40 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 Not Available [facility] 3 07:29:41 Adult health examinatio n Active 2021 Not Available [facility] 3 07:29:41 Urethral stricture 63488351 Active 2021 Not Available [facility] 3 07:29:44 Pain in right sacroiliac joint 6585246477877 9107 Active 2021 Not Available [facility] 3 07:29:40 Hypothyroi dism 60119580 Active 2021 Not Available [facility] 3 07:29:43 Swelling of bilateral lower limbs 476899188 Active 2021 Not Available [facility] 3 07:29:44 Acute urinary tract infection 922951571 Active 2021 Not Available [facility] 3 07:29:43 Bronchitis 38336571 Active 2021 Not Available [facility] 3 07:29:42 Cough 86141979 Active 2021 Not Available [facility] 3 07:29:43 Nasal congestion 06311521 Active 2022 Ray Moreno MD [address], [place], [address] , [employer] [facility] [employer] 3 16:31:40 Seasonal allergic rhinitis 859182240 Active 2022 Ray Moreno MD [address], [place], [address] , [employer] [facility] Last 2 Left [facility] 3 17:38:01 Lumbar spondylosi s 693792691 Active 2022 Ray Moreno MD [address], [place], [address] , [facility] [employer] 3 10:23:15 Sleep apnea 18349039 Active 2022 Ray Moreno MD [address], [place], [address] , [facility] 3 10:26:16 Hypertensi ve disorder 19725293 Active 2022 Ray Moreno MD [address], [place], [address] , [facility] 3 10:30:36 Pancreatit is 16772091 Active 2022 Ray Moreno MD [address], [place], [address] , [facility] 3 14:14:30 Liver enzymes level above reference range 614751846 Active 2022 Ray Moreno MD [address], [place], [address] , [facility] 3 14:26:53 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 7232560135637 9103 Active 2023 Ray Moreno MD [address] [place] [address], [place], [address] , [facility] 4 12:52:16 Weakness of left facial muscle 660299475 Active 2023 Ray Moreno MD [address], [place], [address] , [facility] 4 12:54:06 Fatigue 93138216 Active 2023 Ray Moreno MD [address], [place], [address] , [facility] 4 14:59:09 COVID-19 962573683 Active 2024 Ray Moreno MD [address], [place], [address] , [facility] 09:41:43 Fever with chills 521291734 Active 2024 Ray Moreno MD [address], [place], [address] , [facility] [employer] [facility] 09:42:06 Open wound of left lower leg 3938545088435 9106 Active 2024 Ray Moreno MD [address], [place], [address] , [facility] [employer] [facility] [employer] [facility] 17:36:38 Open wound of lower limb 01352639 Active 2024 Ray Moreno MD [address], [place], [address] , [facility] [employer] [facility] [employer] [facility] 17:37:18 Ulcer of lower extremity 16548607 Active 2024 Ray Moreno MD [address], [place], [address] , [facility] [employer] [facility] [employer] [facility] 5 17:39:05 Swelling of lower leg 995817803 Active 2024 Ray Moreno MD [address], [place], [address] , [facility] [employer] [facility] [employer] [facility] 17:41:05 Open wound of lower limb 63662768 Active 2024 Thad Kenny DPM [address], [place], [address] , [facility] [employer] [facility] [employer] [facility] 5 14:17:31 Lymphedema of limb 788062000 Active 2024 Thad Kenny DPM [address], [place], [address] , [facility] [employer] [facility] 5 17:38:13 Peripheral venous insufficie ncy 87806302 Active 2024 Thad Kenny DPM [address], [address], [place], [address] , [employer] 5 15:36:51 Pruritic rash 59970105 Active 2024 Thad Kenny DPM [address], [place], [address] , [employer] 5 12:15:14 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 sm 31272859 Active 2024 Ray Moreno MD [address], [place], [address] , [employer] 5 16:31:18 Primary hypothyroi dism 43342453 Active 2024 Ray Moreno MD [address], [place], [address] , [employer] 5 17:02:26 Stasis dermatitis 56258339 Active 2024 Ray Moreno MD [address], [place], [address] , [employer] 5 17:17:05 Insect bite of lower limb 919353988 Active 2024 Thad Kenny DPM [address], [place], [address] , [employer] 5 14:16:52 Open wound of toe 405259543 Active 2024 Thad Kenny DPM [address], [place], [address] , [employer] 5 09:20:59 Eczema of lower limb 589843938 Active 2024 Ray Moreno MD [address], [address], [place], [address] , [facility] 5 17:16:58 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 014228354 Active 2024 Ray Moreno MD [address], [place], [place], [address] , [facility] 5 17:19:16 Abnormal gait 97066173 Active 2024 Ray Moreno MD [address], [facility] [address], [place], [address] , [facility] Last 2 Left [facility] 5 17:40:46 Ulcer of toe of left foot Active 2024 Thad Kenny DPM [address], [address] [address], [place], [address] , [facility] Last 2 Left [facility] 5 09:02:30 Notes:aRy Moreno MD [facility] [facility] home sleep study 01/02/23 AHI = 41, [...] 5 Wound Care-Podiatry completed Celia Li RN [facility] Last 2 Left [facility] 05/25/2025 12:24:51 5 Wound Care-Podiatry completed Celia Li RN [facility] [employer] [facility] 05/11/2025 12:39:44 5 Wound Care-Podiatry completed Thad Kenny DPM [address], [address] [address], [place], [address], [facility] Last 2 Left [facility] 04/27/2025 13:57:28 5 Wound Care-Podiatry completed Thad Kenny DPM [address], [facility] [address], [place], [address], [facility] [employer] [facility] 04/21/2025 15:27:03 5 Wound Care-Podiatry completed Celia Li RN [facility] [employer] [facility] 04/13/2025 15:26:01 5 Transitional_C are_Management completed Tanya Moran RN [facility] Last 2 Left [facility] 04/12/2025 17:03:42 5 Wound Care-Podiatry completed Thad Kenny DPM [address], [address], [place], [address], [employer] [facility] Last 2 Left [facility] 04/04/2025 09:19:04 5 Wound Care-Podiatry completed Celia Li RN [facility] Last 2 Left [facility] 03/23/2025 13:10:00 5 Wound Care-Podiatry completed Celia Li RN [facility] Last 2 Left [facility] 03/16/2025 11:32:52 5 Wound Care-Podiatry completed Celia Li RN [facility] Last 2 Left [facility] 03/09/2025 10:07:15 5 Wound Care-Podiatry completed Celia Li RN [facility] Last 2 Left [facility] 03/02/2025 11:48:48 5 Wound Care-Podiatry completed Celia Li RN [facility] Last 2 Left [facility] 02/23/2025 12:01:59 5 Wound Care-Podiatry completed Celia Li RN [facility] Last 2 Left [facility] 02/16/2025 11:40:09 5 Wound Care-Podiatry completed Justice Dave RN [facility] Last 2 Left [facility] 02/09/2025 10:23:16 5 Wound Care-Podiatry completed Thad Kenny DPM [address], [address], [place], [address], [employer] [facility] Last 2 Left [facility] 02/02/2025 13:37:03 5 Wound Care-Podiatry completed Celia Li RN [facility] Last 2 Left [facility] 01/26/2025 15:49:01 5 Wound Care-Podiatry completed Thad Kenny DPM [address], [address], [place], [address] 01/19/2025 13:31:19 5 Wound Care-Podiatry completed Justice Dave RN [facility] 01/17/2025 09:01:39 5 Wound Care-Podiatry completed Celia Li RN [facility] 01/05/2025 17:17:17 2 Hernia Surgery completed Not Available [facility] 09/18 07:26:20 Vasectomy completed Not Available [facility] 0 09/18/2022 07:26:20 Imaging Results None recorded. Procedure Notes None recorded. Medical Equipment None Reported. Allergies Allergen ID Allergen Name Allergen Category Reaction Reaction Severity Criticality Documentation Date Start Date Code Code System Note Provider Name and Address Organization Details Recorded Time 68993 peanut allergeni c extract food,medi cation itching mild Not available 09/18/2022 32997 8 RxNorm Not Available [facility] 07:34:13 94191 prednison e medicatio n other Not available high 12/28/20242019 8640 RxNorm Hyper glyce hipolito Blood sugar s shoot up to above 800 Tanya Moran RN null, [facility] 5 17:32:35 87733 Betadine medicatio n other severe high 04/12/20252024 86773 0 RxNorm blist ers, sores Tanya Moran RN null, [facility] 5 17:11:56 90239 prednisol one medicatio n Not available Not available Not available 06/03/20252024 8638 RxNorm Not Available [employer]achel [employer] - prod 5 09:05:32 98382 iodine medicatio n Not available Not available Not available 06/03/20252024 5933 RxNorm sever e unrec ogniz ed react ion (text : Conta ct Pabellones titis , code: 31175 004) (from exter nal sour e) Not Available more - External Data Service - prod 5 09:05:33 Medications Name Sig Start Date Stop [...] by the provider 11/25 completed NDC: 0003-049 11-07 Not Available Not Available Not [...] Details Last Updated DateTime 5 175.26 cm 98.3 [degF] 20 /min 82 /min 95 % 135/77 mm[Hg] Celia Li RN [place] [facility] 5 11:19:04 Social History Question Answer Notes LastModified by Organizat ion Details LastModified Time Tobacco Smoking Status Former Smoker quit in 2017 Not Available [employer] 09/18/2022 07:25:57 Do You Have An Advance Directive? No MIGRATION.97091 77975 Information not available 09/18/2022 Do You Wear A Helmet When Biking? No MIGRATION.03431 07531 Information not available 09/18/2022 What Is Your Level Of Caffeine Consumption? Moderate MIGRATION.61668 69105 Information not available 09/18/2022 In The 14 Days Before Symptom Onset, Have You Had Close Contact With A Laboratory-confi rmed COVID-19 While That Case Was Ill? No MIGRATION.40000 14085 Information not available 09/18/2022 In The 14 Days Before Symptom Onset, Have You Had Close Contact With A Person Who Is Under Investigation For COVID-19 While That Person Was Ill? No MIGRATION.98514 12515 Information not available 09/18/2022 What Type Of Diet Are You Following? REGULAR MIGRATION.73164 91434 Information not available 09/18/2022 What Is The Highest Grade Or Level Of School You Have Completed Or The Highest Degree You Have Received? DW19081-9 MIGRATION.25665 85726 Information not available 09/18/2022 Have There Been Any Changes To Your Family Or Social Situation? No MIGRATION.90523 14415 Information not available 09/18/2022 When Did You Quit Smoking? 1-5yearssincelastc igarette MIGRATION.64649 43585 Information not available 09/18/2022 Are There Any Guns Present In Your Home? No MIGRATION.76779 27080 Information not available 09/18/2022 Do You Use Insect Repellent Routinely? No MIGRATION.98519 69994 Information not available 09/18/2022 Where Do You Live? [place] MIGRATION.78429 89755 Information not available 09/18/2022 Do You Have A Medical Power Of Tannery Gummer? No MIGRATION.85601 04905 Information not available 09/18/2022 Have You Ever Been Counseled For Unhealthy Alcohol Use? No MIGRATION.78850 20556 Information not available 09/18/2022 Do You Have Any Pets? Yes MIGRATION.38215 56122 Information not available 09/18/2022 What Is Your Relationship Status? MIGRATION.99765 83054 Information not available 09/18/2022 Do You Use Your Seat Belt Or Car Seat Routinely? Yes MIGRATION.08787 44561 Information not available 09/18/2022 Do You Have Smoke And Carbon Monoxide Detectors In Your Home? Yes MIGRATION.76826 76694 Information not available 09/18/2022 Are You Passively Exposed To Smoke? No MIGRATION.80153 72988 Information not available 09/18/2022 Are There Any Smokers In Your House? No MIGRATION.61255 13566 Information not available 09/18/2022 Do You Participate In Social Media? No MIGRATION.40407 61489 Information not available 09/18/2022 Do You Use Sunscreen Routinely? Yes MIGRATION.13560 60661 Information not available 09/18/2022 Has Tobacco Cessation Counseling Been Provided? No MIGRATION.55189 59346 Information not available 09/18/2022 Have You Recently Traveled Abroad? No MIGRATION.72843 28440 Information not available 09/18/2022 Are You Currently In School? No MIGRATION.30162 28934 Information not available 09/18/2022 Do You Have Any Dietary Restrictions? No MIGRATION.86325 46688 Information not available 09/18/2022 Sex: Male Functional Status Question Answer Note LastModified by Organizat ion Details LastModified Time Do you or have you ever used any other forms of tobacco or nicotine? No MIGRATION.26915421 26 Information not available 09/18/2022 What is your level of alcohol consumption? None MIGRATION.24537250 26 Information not available 09/18/2022 What is your exercise level? Occasional MIGRATION.43865839 26 Information not available 09/18/2022 Mental Status None recorded. Family History Relationship Description Onset Age of this Age Resolved Age Notes LastModified by Organization Details LastModified Time Sister Hypertensive disorder MIGRATION.171 [id number] Not available 09/18/2022 07:26:21 Maternal Grandfather Malignant neoplasm of prostate MIGRATION.574 [id number] Not available 09/18/2022 07:26:21 Mother Malignant neoplasm of breast MIGRATION.282 [id number] Not available 09/18/2022 07:26:21 Medical History Condition [...] HAVE YOU BEEN HOSPITALIZED OR SEEN IN [facility] IN THE PAST YEAR ? [...] Recorded Time HPV9 09/10/2021 completed Not Available [facility] 09/18/2022 07:34:06 Influenza, split virus, quadrivalent, PF 05/16/2020 completed Not Available [facility] 07:34:07 HPV9 05/16/2020 completed Not Available [facility] 09/18/2022 07:34:07 Tdap 09/16/2019 completed Not Available [facility] 09/18/2022 07:34:07 HPV9 12/18/2022 completed Karon Arredondo RN null, [employer] [facility] [employer] 12/18/2022 12:40:48 Influenza, split virus, trivalent, PF 07/01/2024 completed Tanya Moran RN null, [employer] [facility] [employer] 07/02/2024 10:32:24 Past Encounters Encounter ID Performer Location Encounter Start Date Encounter Closed Date Diagnosis/Indication Diagnosis SNOMED-CT Code Diagnosis ICD10 Code Diagnosis IMO Codes Diagnosis Note [id number] [facility] [address] [place] [address] 02/16/2025 11:25:35 02/16/2025 15:16:34 Open wound of lower limb 36255342 S81.801D S81.802D [id number] continue daily wound careNew compressio n dressings with bilateral Profore is applied to lower extremitie sVenous ultrasound reviewed negative for DVTfollow- up 1 week for Nurse visit and 2 weeks for doctor visits Swelling o f bilateral lower limbs 163241340 M79.89 Secondary to above Peripheral venous insufficiency 18967719 I87.2 04086 continue chronic compressio nfollow-up with vascular [id number] Ray Moreno MD [facility] [address] [address] 02/17/2025 08:39:38 02/17/2025 10:01:33 [id number] [facility] [address] [place] [address] 02/23/2025 10:59:39 02/26/2025 04:03:15 [id number] [facility] [address] [place] [address] 03/02/2025 11:27:04 03/02/2025 13:48:36 Open wound of lower limb 12208785 S81.801D S81.802D [id number] continue daily wound careNew compressio n dressings with bilateral Profore is applied to lower extremitie sVenous ultrasound reviewed negative for DVTfollow- up 1 week for Nurse visit and 2 weeks for doctor visits Swelling o f bilateral lower limbs 962945316 M79.89 Secondary to above Peripheral venous insufficiency 39517971 I87.2 69653 continue chronic compressio nfollow-up with vascular Pruritic rash 04484504 L 28.2 787852 bilateral feet [id number] Thad Kenny DPM [facility] [address] [place] [address] 03/09/2025 09:54:18 03/09/2025 14:57:21 Open wound of lower limb 19009334 S81.801D S81.802D 2632600534 continue daily wound careNew compressio n dressings with bilateral Profore is applied to lower extremitie sVenous ultrasound reviewed negative for DVTfollow- up 1 week Swelling o f bilateral lower limbs 152829291 M79.89 Secondary to above Peripheral venous insufficiency 71929705 I87.2 15014 continue chronic compressio nfollow-up with vascular Pruritic rash 73356668 L 28.2 924462 bilateral feet [id number] Ray Moreno MD [facility] [address] [address] 03/09/2025 16:47:13 03/09/2025 17:13:43 Liver enzymes level above reference range 389635799 R74.01 Improved Hypertensive disorder 38 352645 I10 History of diabetes mellitus 594486006 Z86.39 Morbid obesity 907444868 E66.01 Vitamin D deficiency 347 66900 E55.9 Weakness o f left facial muscle 126449200 R29.810 Fatigue 26577876 R53.83 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sm 385959 06 E29.1 60043651 Primary hypothyroidism 54038322 E03.9 49438 Anemia 182472119 D64.9 4433297 Ex-cigarette smoker 2810 96366 Z87.891 722138 Stasis dermatitis 731494 05 I87.2 77847655 B/l legs [id number] Thad Kenny DPM [facility] [address] [place] [address] 03/16/2025 11:01:43 03/16/2025 17:01:40 Open wound of lower limb 45036254 S81.801D S81.802D 9264630400 two wounds- right lower legNew compressio n dressings with right Profore is applied to lower extremitie sTubigrip applied left lower legVenous ultrasound reviewed negative for DVTfollow- up 1 week Peripheral venous insufficiency 24915302 I87.2 26446 continue chronic compressio nfollow-up with vascular Pruritic rash 47287993 L 28.2 772838 bilateral feet- resolving Health Concerns Section Related Observation LastModified by Organization Detai ls LastModified Time None Recorded Concern Status LastModified by Organization Details LastModified Time None Recorded Payers Encounter Date Sequence Insurance Name Policy Number Policy Leonard Covered Member ID Leonard Member ID Guarantor Name 03/16/2025 1 [facility] [id number] Zheng Carrizales [id number] Zheng Carrizales Notes Date Note Type Note Provider Name and Address Organization Details Recorded Time 03/16/2025 text/html ROS as noted in the HPI . Patient is a 39-year-old male he returns to the office for follow-up on venous wounds of the lower legs he is completely healed to the left leg he has x2 wound that is open to the right lower leg laterally. Patient states overall he is doing extremely well the rash is also drying up and scabbing. Patient denies any other complaints. Thad Kenny DPM [address] [facility], [facility] [address], [place], [address], [facility] 03/16/2025 11:50:55
--- OUTSIDE RECORDS SUMMARY | 2025-06-15 01:22 | XMS_ITS | Continuity of Care Document ---
Author Organization [employer], [facility] Address [address] [place] [address] Care Team Providers Care Waiter/Waitress Buffet Name Role Phone RAY MORENO Primary Care Provider Assessment Encounter Date Assessment Date Assessment LastModified by Organization Details LastModified Time 05/11/2025 05/11/2025 This note is dictated and transcribed by [employer]. Line Ordering Clinician variances may occur. Despite proofreading, typographical errors may occur. Occasional wrong-word or 'jltez-t-cscz' substitutions may have occurred due to the inherent limitations of voice recording. Read the chart carefully and recognize, using context, where substitutions have occurred. [email or web address] Not available 05/11/2025 14:17:29 Plan of Treatment Reminders Order Date Submit [...] instructions recorded. Reason for Referral None Reported. Problems Name Problem SNOMED Code Status Onset Date Resolution Date Notes Provider Name and Address Organization Details Recorded Time Morbid obesity 301742327 Active 2019 Ray Moreno MD [address] [facility] [address], [place], [address] , [employer] 5 17:50:52 Ex-smoker 8951827 Active 2019 Not Available [employer] 3 07:29:44 History of sepsis 2436451731698 00 Active 2019 Not Available [facility] 3 07:29:40 Acute kidney injury 32833083 Active 2019 Not Available [facility] 3 07:29:40 Persistent insomnia 493347347 Active 2019 Not Available [facility] 3 07:29:40 Steatotic liver disease 824591685 Active 2019 Not Available [facility] 3 07:29:40 Anemia 221546417 Active 2019 Ray Moreno MD [address] [facility], [place], [address] , [facility] 5 17:04:16 Peripheral edema 781614463 Active 2019 Not Available [facility] 3 07:29:41 Cellulitis of lower limb 672577463 Active 2019 Not Available [employer] 3 07:29:43 Candidiasi s of mouth 95847386 Active 2019 Not Available [facility] 3 07:29:44 Umbilical hernia 066643467 Active 2019 Not Available [facility] 3 07:29:42 Uncontroll ed type 2 diabetes mellitus 793459863 Active 2019 Not Available [facility] 3 07:29:43 Microscopi c hematuria 903828986 Active 2019 Not Available [facility] 3 07:29:41 Vitamin D deficiency 00434434 Active 2019 Not Available [facility] 3 07:29:42 Autoimmune hemolytic anemia 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 Active 2019 Not Available [facility] 3 07:29:43 History of atrial fibrillati on 198953095 Active 2019 Not Available [facility] 3 07:29:42 Type 2 diabetes mellitus without complicati on 410358314 Active 2019 Not Available [facility] 3 07:29:42 History of diabetes mellitus 574418601 Active 2019 Not Available [facility] 3 07:29:40 Increased frequency of urination 228162778 Active 2021 Not Available [facility] 3 07:29:40 Kole hematuria 364218319 Active 2021 Not Available [facility] 3 07:29:41 Blood in urine 55799517 Active 2021 Not Available [facility] 3 07:29:42 Lower urinary tract symptoms due to benign prostatic hypertroph y 7331484437043 1 Active 2021 Not Available [facility] 3 07:29:41 Disorder of prostate 48253445 Active 2021 Not Available [facility] 3 07:29:42 Active or passive immunizati on Active 2021 Not Available [facility] 3 07:29:40 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 Not Available [facility] 3 07:29:41 Adult health examinatio n Active 2021 Not Available [facility] 3 07:29:41 Urethral stricture 48582078 Active 2021 Not Available [facility] 3 07:29:44 Pain in right sacroiliac joint 9511208692401 9107 Active 2021 Not Available [facility] 3 07:29:40 Hypothyroi dism 44105168 Active 2021 Not Available [facility] 3 07:29:43 Swelling of bilateral lower limbs 743421608 Active 2021 Not Available [facility] 3 07:29:44 Acute urinary tract infection 518855727 Active 2021 Not Available [facility] 3 07:29:43 Bronchitis 37175312 Active 2021 Not Available [facility] 3 07:29:42 Cough 60696884 Active 2021 Not Available [facility] 3 07:29:43 Nasal congestion 14312385 Active 2022 Ray Moreno MD [address] [place] [address], [address] [address], [place], [address] , [facility] [employer] 3 16:31:40 Seasonal allergic rhinitis 167692531 Active 2022 Ray Moreno MD [address], [place], [address] , [facility] [employer] 3 17:38:01 Lumbar spondylosi s 303993536 Active 2022 Ray Moreno MD [address], [address], [address] , [facility] [employer] [facility] [employer] [facility] [employer] 3 10:23:15 Sleep apnea 60456451 Active 2022 Ray Moreno MD [address], [place], [address] , [facility] [employer] [facility] [employer] 3 10:26:16 Hypertensi ve disorder 41059060 Active 2022 Ray Moreno MD [address], [place], [address] , [facility] [employer] [facility] [employer] 3 10:30:36 Pancreatit is 93511444 Active 2022 Ray Moreno MD [address], [place], [address] , [facility] [employer] [facility] 3 14:14:30 Liver enzymes level above reference range 755348235 Active 2022 Ray Moreno MD [address], [place], [address] , [facility] [employer] [facility] 3 14:26:53 [place] palsy of left side of face 8196873547887 9103 Active 2023 Ray Moreno MD [address], [place], [address] , [facility] [employer] [facility] 4 12:52:16 Weakness of left facial muscle 117551420 Active 2023 Ray Moreno MD [address], [place], [address] , [facility] 4 12:54:06 Fatigue 09141631 Active 2023 Ray Moreno MD [address], [address], [place], [address] , [facility] 4 14:59:09 COVID-19 837515518 Active 2024 Ray Moreno MD [address], [address], [place], [address] , [facility] 5 09:41:43 Fever with chills 720606670 Active 2024 Ray Moreno MD [address], [address], [place], [address] , [facility] 5 09:42:06 Open wound of left lower leg 9539108009892 9106 Active 2024 Ray Moreno MD [address], [address], [place], [address] , [facility] 5 17:36:38 Open wound of lower limb 93243254 Active 2024 Ray Moreno MD [address], [address], [place], [address] , [facility] 5 17:37:18 Ulcer of lower extremity 68636016 Active 2024 Ray Moreno MD [address], [place], [address] , [facility] 5 17:39:05 Swelling of lower leg 526484667 Active 2024 Ray Moreno MD [address], [place], [address] , [facility] 5 17:41:05 Open wound of lower limb 93509145 Active 2024 Thad Kenny DPM [address], [place], [address] , [employer] 5 14:17:31 Lymphedema of limb 531928458 Active 2024 Thad Kenny DPM [address], [place], [address] , [email or web address] [facility] [employer] 5 17:38:13 Peripheral venous insufficie ncy 48599234 Active 2024 Thad Kenny DPM [address], [address], [place], [address] , [employer] 5 15:36:51 Pruritic rash 00721854 Active 2024 Thad Kenny DPM [address], [address], [place], [address] , [employer] 12:15:14 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 sm 02215028 Active 2024 Ray Moreno MD [address], [address], [place], [address] , [employer] 5 16:31:18 Primary hypothyroi dism 09223075 Active 2024 Ray Moreno MD [address], [address], [place], [address] , [employer] 5 17:02:26 Stasis dermatitis 64680191 Active 2024 Ray Moreno MD [address], [address], [place], [address] , [employer] 5 17:17:05 Insect bite of lower limb 483336514 Active 2024 Thad Kenny DPM [address], [address], [place], [address] , [email or web address] [facility] [employer] 5 14:16:52 Open wound of toe 407905906 Active 2024 Thad Kenny DPM [address], [address], [place], [address] , [employer] 5 09:20:59 Eczema of lower limb 370450648 Active 2024 Ray Moreno MD [address] [facility], [address] [place] [address], [place], [address] , 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 [employer] [facility] 5 17:19:16 Abnormal gait 06710469 Active 2024 Ray Moreno MD [address] [facility], [address] [place] [address], [place], [address] , [facility] [employer] [facility] 5 17:40:46 Ulcer of toe of left foot Active 2024 Thad Kenny DPM [address] [facility], [address], [address] , [facility] [employer] [facility] 5 09:02:30 Notes:Ray Moreno MD [facility] home sleep study 01/02/23 AHI = 41, [...] 5 Wound Care-Podiatry completed Celia Li RN [facility] [employer] [facility] 05/25/2025 12:24:51 5 Wound Care-Podiatry completed Celia Li RN [facility] [employer] [facility] 05/11/2025 12:39:44 5 Wound Care-Podiatry completed Thad Kenny DPM [address] [facility], [address] [address], [place], [address], [facility] [employer] [facility] 04/27/2025 13:57:28 5 Wound Care-Podiatry completed Thad Kenny DPM [address], [facility] [address], [place], [address], [facility] [employer] [facility] 04/21/2025 15:27:03 5 Wound Care-Podiatry completed Celia Li RN [facility] [employer] [facility] 04/13/2025 15:26:01 5 Transitional_C are_Management completed Tanya Moran RN [facility] [employer] [facility] 04/12/2025 17:03:42 5 Wound Care-Podiatry completed Thad Kenny DPM [address], [facility] [address], [place], [address], [facility] [employer] [facility] 04/04/2025 09:19:04 5 Wound Care-Podiatry completed Celia Li RN [facility] [employer] [facility] 03/23/2025 13:10:00 5 Wound Care-Podiatry completed Celia Li RN [facility] [employer] [facility] 03/16/2025 11:32:52 5 Wound Care-Podiatry completed Celia Li RN [facility] [employer] [facility] 03/09/2025 10:07:15 5 Wound Care-Podiatry completed Celia Li RN [facility] [employer] [facility] 03/02/2025 11:48:48 5 Wound Care-Podiatry completed Celia Li RN [facility] [employer] [facility] 02/23/2025 12:01:59 5 Wound Care-Podiatry completed Celia Li RN [facility] [employer] [facility] 02/16/2025 11:40:09 5 Wound Care-Podiatry completed Justice Dave RN [facility] [employer] [facility] 02/09/2025 10:23:16 5 Wound Care-Podiatry completed Thad Kenny DPM [address], [address], [place], [address], [facility] [employer] [facility] 02/02/2025 13:37:03 5 Wound Care-Podiatry completed Celia Li RN [facility] [employer] [facility] 01/26/2025 15:49:01 5 Wound Care-Podiatry completed Thad Kenny DPM [address], [address], [place], [address], [facility] [employer] [facility] 01/19/2025 13:31:19 5 Wound Care-Podiatry completed Justice Dave RN [facility] [employer] [facility] 01/17/2025 09:01:39 5 Wound Care-Podiatry completed Celia Li RN [facility] [employer] [facility] 01/05/2025 17:17:17 2 Hernia Surgery completed Not Available [facility] 09/18 07:26:20 Vasectomy completed Not Available [facility] 0 09/18/2022 07:26:20 Imaging Results None recorded. Procedure Notes None recorded. Medical Equipment None Reported. Allergies Allergen ID Allergen Name Allergen Category Reaction Reaction Severity Criticality Documentation Date Start Date Code Code System Note Provider Name and Address Organization Details Recorded Time 22587 peanut allergeni c extract food,medi cation itching mild Not available 09/18/2022 54928 8 RxNorm Not Available [facility] 07:34:13 02275 prednison e medicatio n other Not available high 12/28/20242019 8640 RxNorm Hyper glyce hipolito Blood sugar s shoot up to above 800 DARRICK May, [facility] [employer] [facility] 17:32:35 33211 Betadine medicatio n other severe high 04/12/20252024 0 RxNorm blist ers, sores DARRICK May, [facility] [employer] [facility] 17:11:56 57189 prednisol one medicatio n Not available Not available Not available 06/03/20252024 8638 RxNorm Not Available more - External Data Service - prod 09:05:32 44584 iodine medicatio n Not available Not available Not available 06/03/20252024 5933 RxNorm bill schneider ed react ion (text : Conta ct [place] titis , code: 49812 004) (from [facility] e) Not Available [facility] External Data Service - prod 09:05:33 Medications [...] administ ered by the provider 11/25 completed [facility]: 0003-049 11-07 Not Available Not Available Not [...] Vitals Date Recorded Body height Body temperature Heart rate Respiratory rate Oxygen saturation Systolic And Diastolic Provider Name and Address Organization Details Last Updated DateTime 175.26 cm 99.1 [degF] 76 /min 18 /min 93 % 125/78 mm[Hg] Celia Li RN [facility] 12:19:47 Social History Question Answer Notes LastModified by Organizat ion Details LastModified Time Tobacco Smoking Status Former Smoker quit in 2016 Not Available [facility] 09/18/2022 07:25:57 Do You Have An Advance Directive? No MIGRATION.51445 76811 Information not available 09/18/2022 Do You Wear A Helmet When Biking? No MIGRATION.80259 85334 Information not available 09/18/2022 What Is Your Level Of Caffeine Consumption? Moderate MIGRATION.70711 62612 Information not available 09/18/2022 In The 14 Days Before Symptom Onset, Have You Had Close Contact With A Laboratory-confi rmed COVID-19 While That Case Was Ill? No MIGRATION.72802 28607 Information not available 09/18/2022 In The 14 Days Before Symptom Onset, Have You Had Close Contact With A Person Who Is Under Investigation For COVID-19 While That Person Was Ill? No MIGRATION.66982 25843 Information not available 09/18/2022 What Type Of Diet Are You Following? REGULAR MIGRATION.62039 66586 Information not available 09/18/2022 What Is The Highest Grade Or Level Of School You Have Completed Or The Highest Degree You Have Received? AH25173-9 MIGRATION.21876 19515 Information not available 09/18/2022 Have There Been Any Changes To Your Family Or Social Situation? No MIGRATION.01035 62617 Information not available 09/18/2022 When Did You Quit Smoking? 1-5yearssincelastc igarette MIGRATION.13214 35582 Information not available 09/18/2022 Are There Any Guns Present In Your Home? No MIGRATION.92356 68490 Information not available 09/18/2022 Do You Use Insect Repellent Routinely? No MIGRATION.14136 40706 Information not available 09/18/2022 Where Do You Live? [facility] MIGRATION.22854 59458 Information not available 09/18/2022 Do You Have A Medical Power Of Automatic Serging Machine Operator? No MIGRATION.77480 89158 Information not available 09/18/2022 Have You Ever Been Counseled For Unhealthy Alcohol Use? No MIGRATION.22483 19753 Information not available 09/18/2022 Do You Have Any Pets? Yes MIGRATION.96411 92465 Information not available 09/18/2022 What Is Your Relationship Status? MIGRATION.29909 59536 Information not available 09/18/2022 Do You Use Your Seat Belt Or Car Seat Routinely? Yes MIGRATION.22624 70784 Information not available 09/18/2022 Do You Have Smoke And Carbon Monoxide Detectors In Your Home? Yes MIGRATION.75715 50864 Information not available 09/18/2022 Are You Passively Exposed To Smoke? No MIGRATION.20307 28358 Information not available 09/18/2022 Are There Any Smokers In Your House? No MIGRATION.75592 98331 Information not available 09/18/2022 Do You Participate In Social Media? No MIGRATION.84657 22672 Information not available 09/18/2022 Do You Use Sunscreen Routinely? Yes MIGRATION.34829 86025 Information not available 09/18/2022 Has Tobacco Cessation Counseling Been Provided? No MIGRATION.73009 57069 Information not available 09/18/2022 Have You Recently Traveled Abroad? No MIGRATION.59441 97816 Information not available 09/18/2022 Are You Currently In School? No MIGRATION.87027 32181 Information not available 09/18/2022 Do You Have Any Dietary Restrictions? No MIGRATION.16002 64545 Information not available 09/18/2022 Sex: Male Functional Status Question Answer Note LastModified by Organizat ion Details LastModified Time Do you or have you ever used any other forms of tobacco or nicotine? No MIGRATION.97554732 26 Information not available 09/18/2022 What is your level of alcohol consumption? None MIGRATION.96483496 26 Information not available 09/18/2022 What is your exercise level? Occasional MIGRATION.76156908 26 Information not available 09/18/2022 Mental Status None recorded. Family History Relationship Description Onset Age of this Age Resolved Age Notes LastModified by Organization Details LastModified Time Sister Hypertensive disorder MIGRATION.407 [id number] Not available 09/18/2022 07:26:21 Maternal Grandfather Malignant neoplasm of prostate MIGRATION.615 4511390 Not available 09/18/2022 07:26:21 Mother Malignant neoplasm of breast MIGRATION.343 2484238 Not available 09/18/2022 07:26:21 Medical History Condition [...] HAVE YOU BEEN HOSPITALIZED OR SEEN IN [facility] IN THE PAST YEAR ? Y [...] Recorded Time HPV9 09/10/2021 completed Not Available [facility] 09/18/2022 07:34:06 Influenza, split virus, quadrivalent, PF 05/16/2020 completed Not Available [facility] 07:34:07 HPV9 05/16/2020 completed Not Available [facility] 09/18/2022 07:34:07 Tdap 09/16/2019 completed Not Available [facility] 09/18/2022 07:34:07 HPV9 12/18/2022 completed Karon Arredondo RN null, [facility] 12/18/2022 12:40:48 Influenza, split virus, trivalent, PF 07/01/2024 completed DARRICK May, [facility] 07/02/2024 10:32:24 Past Encounters Encounter ID Performer Location Encounter Start Date Encounter Closed Date Diagnosis/Indication Diagnosis SNOMED-CT Code Diagnosis ICD10 Code Diagnosis IMO Codes Diagnosis Note [id number] Ray Moreno MD [facility] [address] [address] 04/12/2025 16:59:42 04/13/2025 09:39:09 Transition of care 0604408922 105 Z75.8 Post-disch arge follow-up 189328119 Z09 898669 Eczema of lower limb 788 617614 L30.9 15482917 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 857419534 E09.9 T38.0X5D 8823400722 Morbid obesity 806327956 E66.01 52105 Abnormal gait 02173715 R 26.89 55134070 [id number] Thad Kenny DPM [facility] [address] [place] [address] 04/13/2025 14:10:54 04/14/2025 17:53:50 Open wound of lower limb 64135482 S81.801D S81.802D 9884509700 New compressio n dressings with right Profore is applied to lower extremitie sTubigrip applied left lower legVenous ultrasound reviewed negative for DVTfollow- up 1 week Peripheral venous insufficiency 07425990 I87.2 52238 continue chronic compressio nfollow-up with vascular Insect bit e of lower limb 617954186 S80.869D W57.XXXD 59261451 bilateral lower legsPET and house has been treated Ulcer of t oe of left foot 7152892246 4114172 L97.522 70744834 multiple- toesdaily dressingsm onitor for signs of infectionf ollow-up on week [id number] Thad Kenny DPM [facility] [address] [place] [address] 04/20/2025 12:05:06 04/21/2025 15:47:45 Open wound of lower limb 81341929 S81.801D S81.802D [id number] New compressio n dressings with bilateral Profore is applied to lower extremitie sTubigrip applied left lower legVenous ultrasound reviewed negative for DVTfollow- up 1 week Ulcer of t oe of left foot 9530126126 7274295 L97.522 52301772 multiple- toesdaily dressingsm onitor for signs of infectionf ollow-up on week Peripheral venous insufficiency 42979527 I87.2 18205 continue chronic compressio nfollow-up with vascular [id number] [facility] [address] [place] [address] 04/27/2025 11:55:42 04/27/2025 14:24:22 Open wound of lower limb 13354913 S81.801D S81.802D [id number] resolved Ulcer of t oe of left foot 9697787410 8327913 L97.522 12614906 multiple- toesdaily dressingsm onitor for signs of infectionf ollow-up on week Peripheral venous insufficiency 11712121 I87.2 49032 continue chronic compressio nfollow-up with vascular [id number] Thad Kenny DPM [facility] [address] [place] [address] 05/11/2025 12:08:02 05/11/2025 14:19:43 Ulcer of toe of left foot 1668423003 5816792 L97.522 58669891 3 woundsdail y dressingsm onitor for signs of infectionf ollow-up on week Peripheral venous insufficiency 73388889 I87.2 36055 continue chronic compressio nfollow-up with vascular Health Concerns Section Related Observation LastModified by Organization Detai ls LastModified Time None Recorded Concern Status LastModified by Organization Details LastModified Time None Recorded Payers Encounter Date Sequence Insurance Name Policy Number Policy Leonard Covered Member ID Leonard Member ID Guarantor Name 05/11/2025 1 [facility] [id number] Zheng Carrizales [id number] Zheng Carrizales Notes Date Note Type Note Provider Name and Address Organization Details Recorded Time 05/11/2025 text/html ROS as noted in the HPI . Patient is a 40-year-old male who returns the office for follow-up on multiple wounds. Patient overall is doing well he is significantly reduced the number of wounds he only has a few wounds open. Patient denies any other complaints or signs of infection. Thad Kenny DPM [address] [facility], [facility] [address], [place], [address], [facility] 05/11/2025 14:18:06
--- OUTSIDE RECORDS SUMMARY | 2025-06-15 01:22 | XMS_ITS | Continuity of Care Document ---
Author Organization [place] [facility] [employer] ( [employer] ), [facility] Address [address] [place] [address] Care Team Providers Care Health Care Manager Name Role Phone RAY MORENO Primary Care Provider [phone] Assessment Encounter Date Assessment Date Assessment LastModified by Organization Details LastModified Time 03/23/2025 03/23/2025 This note is dictated and transcribed by [employer]. Simulation Technician variances may occur. Despite proofreading, typographical errors may occur. Occasional wrong-word or 'uyflf-l-shoy' substitutions may have occurred due to the inherent limitations of voice recording. Read the chart carefully and recognize, using context, where substitutions have occurred. [email or web address] Not available 03/23/2025 14:13:12 Plan of Treatment Reminders Order Date Submit [...] Abnormal Flag Note LastModifiedBy Organization Detail LastModifiedTime 04/05/2004/05/2025 XR, foot No observ ation record ed. [address], [place], [address], 04/12/2025 17:16:09 04/06/20 25 04/06/2025 US, renal No observ ation record ed. [address], [place], [address], 04/12/2025 17:16:09 Result Notes None recorded. Problems Name Problem SNOMED Code Status Onset Date Resolution Date Notes Provider Name and Address Organization Details Recorded Time Morbid obesity 271996045 Active 2019 Ray Moreno MD [address], [facility] [address], [place], [address] , [facility] 5 17:50:52 Ex-smoker 4579664 Active 2019 Not Available [facility] 3 07:29:44 History of sepsis 7148340555506 00 Active 2019 Not Available [facility] 3 07:29:40 Acute kidney injury 57846563 Active 2019 Not Available [facility] 3 07:29:40 Persistent insomnia 882716427 Active 2019 Not Available [facility] 3 07:29:40 Steatotic liver disease 391326200 Active 2019 Not Available [facility] 3 07:29:40 Anemia 891894833 Active 2019 Ray Moreno MD [address] [facility], [facility] [address], [place], [address] , [facility] 5 17:04:16 Peripheral edema 842203701 Active 2019 Not Available [facility] 3 07:29:41 Cellulitis of lower limb 350482538 Active 2019 Not Available [facility] 3 07:29:43 Candidiasi s of mouth 74119373 Active 2019 Not Available [facility] 3 07:29:44 Umbilical hernia 842690780 Active 2019 Not Available [facility] 3 07:29:42 Uncontroll ed type 2 diabetes mellitus 759593587 Active 2019 Not Available [facility] 3 07:29:43 Microscopi c hematuria 909066864 Active 2019 Not Available [facility] 3 07:29:41 Vitamin D deficiency 67377518 Active 2019 Not Available [facility] 3 07:29:42 Autoimmune hemolytic anemia 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 Active 2019 Not Available [facility] 3 07:29:43 History of atrial fibrillati on 212868385 Active 2019 Not Available [facility] 3 07:29:42 Type 2 diabetes mellitus without complicati on 454904052 Active 2019 Not Available [facility] 3 07:29:42 History of diabetes mellitus 933373391 Active 2019 Not Available [facility] 3 07:29:40 Increased frequency of urination 676577719 Active 2021 Not Available [facility] 3 07:29:40 Kole hematuria 180780628 Active 2021 Not Available [facility] 3 07:29:41 Blood in urine 10276581 Active 2021 Not Available [facility] 3 07:29:42 Lower urinary tract symptoms due to benign prostatic hypertroph y 0452631993449 1 Active 2021 Not Available [facility] 3 07:29:41 Disorder of prostate 05843993 Active 2021 Not Available [facility] 3 07:29:42 Active or passive immunizati on Active 2021 Not Available [facility] 3 07:29:40 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 2021 Not Available [facility] 3 07:29:41 Adult health examinatio n Active 2021 Not Available [facility] 3 07:29:41 Urethral stricture 97312704 Active 2021 Not Available [facility] 3 07:29:44 Pain in right sacroiliac joint 5092206590366 9107 Active 2021 Not Available [facility] 3 07:29:40 Hypothyroi dism 60112835 Active 2021 Not Available [facility] 3 07:29:43 Swelling of bilateral lower limbs 716337646 Active 2021 Not Available [facility] 3 07:29:44 Acute urinary tract infection 294475943 Active 2021 Not Available [facility] 3 07:29:43 Bronchitis 83037108 Active 2021 Not Available [facility] 3 07:29:42 Cough 52571504 Active 2021 Not Available [facility] 3 07:29:43 Nasal congestion 77651885 Active 2022 Ray Moreno MD [address], [place], [address] , [place] [facility] 3 16:31:40 Seasonal allergic rhinitis 303805656 Active 2022 Ray Moreno MD [address], [address], [place], [address] , [place] [facility] 3 17:38:01 Lumbar spondylosi s 565947376 Active 2022 Ray Moreno MD [address], [address], [place], [address] , [place] [facility] 3 10:23:15 Sleep apnea 78038356 Active 2022 Ray Moreno MD [address], [address], [place], [address] , [place] [facility] 3 10:26:16 Hypertensi ve disorder 81515619 Active 2022 Ray Moreno MD [address], [address], [place], [address] , [place] [facility] 3 10:30:36 Pancreatit is 67470859 Active 2022 Ray Moreno MD [address], [address], [place], [address] , [place] [facility] 3 14:14:30 Liver enzymes level above reference range 794206101 Active 2022 Ray Moreno MD [address], [address], [place], [address] , [place] [facility] 3 14:26:53 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 2408797857428 9103 Active 2023 Ray Moreno MD [address], [address], [place], [address] , [place] [facility] 4 12:52:16 Weakness of left facial muscle 197842060 Active 2023 Ray Moreno MD [address], [address], [place], [address] , [place] [facility] 4 12:54:06 Fatigue 68909888 Active 2023 Ray Moreno MD [address], [address], [place], [address] , [place] [facility] 4 14:59:09 COVID-19 861351157 Active 2024 Ray Moreno MD [address], [address], [place], [address] , [place] [facility] 5 09:41:43 Fever with chills 954818259 Active 2024 Ray Moreno MD [address], [address], [place], [address] , [place] [facility] 5 09:42:06 Open wound of left lower leg 7235159104828 9106 Active 2024 Ray Moreno MD [address], [address], [place], [address] , [place] [facility] 5 17:36:38 Open wound of lower limb 40083340 Active 2024 Ray Moreno MD [address], [address], [place], [address] , [place] [facility] 5 17:37:18 Ulcer of lower extremity 47404656 Active 2024 Ray Moreno MD [address], [address], [place], [address] , [employer] 17:39:05 Swelling of lower leg 230316873 Active 2024 Ray Moreno MD [address], [place], [address] , [employer] [facility] [employer] ( [facility] ) 5 17:41:05 Open wound of lower limb 31226968 Active 2024 Thad Kenny DPM [address], [address], [place], [address] , [employer] [facility] [employer] ( [facility] ) 14:17:31 Lymphedema of limb 519181665 Active 2024 Thad Kenny DPM [address], [address], [place], [address] , [employer] 17:38:13 Peripheral venous insufficie ncy 04590746 Active 2024 Thad Kenny DPM [address], [address], [place], [address] , [employer] 15:36:51 Pruritic rash 70932825 Active 2024 Thad Kenny DPM [address], [address], [place], [address] , [employer] 5 12:15:14 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 sm 60396340 Active 2024 Ray Moreno MD [address], [address], [place], [address] , [employer] ( [facility] ) 16:31:18 Primary hypothyroi dism 05959135 Active 2024 Ray Moreno MD [address], [address], [place], [address] , [employer] [facility] [employer] ( [facility] ) 5 17:02:26 Stasis dermatitis 59283266 Active 2024 Ray Moreno MD [address], [address], [place], [address] , [facility] 5 17:17:05 Insect bite of lower limb 511926720 Active 2024 Thad Kenny DPM [address], [address], [place], [address] , [facility] 5 14:16:52 Open wound of toe 679855513 Active 2024 Thad Kenny DPM [address], [address], [place], [address] , [facility] [employer] [facility] 5 09:20:59 Eczema of lower limb 106832812 Active 2024 Ray Moreno MD [address] [employer] [address], [place], [address] , [facility] [employer] [facility] 5 17:16:58 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, [address] [address], [place], [address] , [facility] 5 09:02:30 Notes:Ray Moreno MD [facility] home sleep study 01/02/23 AHI = 41, [...] 5 Wound Care-Podiatry completed Celia Li RN [facility] [employer] [facility] 05/25/2025 12:24:51 5 Wound Care-Podiatry completed Celia Li RN [facility] [employer] [facility] 05/11/2025 12:39:44 5 Wound Care-Podiatry completed Thad Kenny DPM [address], [place], [address], [facility] [employer] [facility] [employer] [facility] 04/27/2025 13:57:28 5 Wound Care-Podiatry completed Thad Kenny DPM [address], [place], [address], [facility] [employer] [facility] 04/21/2025 15:27:03 5 Wound Care-Podiatry completed Celia Li RN [facility] [employer] [facility] 04/13/2025 15:26:01 5 Transitional_C are_Management completed Tanya Moran RN [facility] [employer] [facility] 04/12/2025 17:03:42 5 Wound Care-Podiatry completed Thad Kenny DPM [address], [place], [address], [facility] [employer] [facility] [employer] [facility] 04/04/2025 09:19:04 5 Wound Care-Podiatry completed Celia Li RN [facility] [employer] [facility] 03/23/2025 13:10:00 5 Wound Care-Podiatry completed Celia Li RN [facility] [employer] [facility] 03/16/2025 11:32:52 5 Wound Care-Podiatry completed Celia Li RN [facility] [employer] [facility] 03/09/2025 10:07:15 5 Wound Care-Podiatry completed Celia Li RN [facility] [employer] 03/02/2025 11:48:48 5 Wound Care-Podiatry completed Celia Li RN [facility] [employer] 02/23/2025 12:01:59 5 Wound Care-Podiatry completed Celia Li RN [facility] 02/16/2025 11:40:09 5 Wound Care-Podiatry completed Justice Dave RN [facility] 02/09/2025 10:23:16 5 Wound Care-Podiatry completed Thad Kenny DPM [address], [place], [address], [facility] 02/02/2025 13:37:03 5 Wound Care-Podiatry completed Celia Li RN [facility] 01/26/2025 15:49:01 5 Wound Care-Podiatry completed Thad Kenny DPM [address], [place], [address], [facility] 01/19/2025 13:31:19 5 Wound Care-Podiatry completed Justice Dave RN [facility] 01/17/2025 09:01:39 5 Wound Care-Podiatry completed Celia Li RN [facility] 01/05/2025 17:17:17 2 Hernia Surgery completed Not Available [facility] 09/18 07:26:20 Vasectomy completed Not Available [facility] 0 09/18/2022 07:26:20 Imaging Results None recorded. Procedure Notes None recorded. Medical Equipment None Reported. Allergies Allergen ID Allergen Name Allergen Category Reaction Reaction Severity Criticality Documentation Date Start Date Code Code System Note Provider Name and Address Organization Details Recorded Time 10671 peanut allergeni c extract food,medi cation itching mild Not available 09/18/2022 12870 8 RxNorm Not Available [facility] 07:34:13 91170 prednison e medicatio n other Not available high 12/28/20242019 8640 RxNorm Hyper glyce hipolito Blood sugar s shoot up to above 800 Tanya Moran RN null, [facility] [employer] [facility] 17:32:35 80221 Betadine medicatio n other severe high 04/12/20252024 80809 0 RxNorm blist ers, sores Tanya Moran RN null, [facility] [employer] [facility] 17:11:56 14091 prednisol one medicatio n Not available Not available Not available 06/03/20252024 8638 RxNorm Not Available more - External Data Service - prod 09:05:32 36583 iodine medicatio n Not available Not available Not available 06/03/20252024 5933 RxNorm sever e unrec ogniz ed react ion (text : Conta ct [place] titis , code: 71635 004) (from [facility]) Not Available more - External Data [...] administ ered by the provider 11/25 completed [facility]: 0003-049 11-07 Not Available Not Available Not [...] Details Last Updated DateTime 5 175.26 cm 98.5 [degF] 18 /min 76 /min 96 % 123/82 mm[Hg] Celia Li RN [place] [facility] 5 13:09:00 Social History Question Answer Notes LastModified by Organizat ion Details LastModified Time Tobacco Smoking Status Former Smoker quit in 2017 Not Available [facility] 09/18/2022 07:25:57 Do You Have An Advance Directive? No MIGRATION.19595 23916 Information not available 09/18/2022 Do You Wear A Helmet When Biking? No MIGRATION.06755 46714 Information not available 09/18/2022 What Is Your Level Of Caffeine Consumption? Moderate MIGRATION.40222 37609 Information not available 09/18/2022 In The 14 Days Before Symptom Onset, Have You Had Close Contact With A [facility] COVID-19 While That Case Was Ill? No MIGRATION.61610 43346 Information not available 09/18/2022 In The 14 Days Before Symptom Onset, Have You Had Close Contact With A Person Who Is Under Investigation For COVID-19 While That Person Was Ill? No MIGRATION.79030 95442 Information not available 09/18/2022 What Type Of Diet Are You Following? REGULAR MIGRATION.79929 92999 Information not available 09/18/2022 What Is The Highest Grade Or Level Of School You Have Completed Or The Highest Degree You Have Received? [id number] MIGRATION.04699 98719 Information not available 09/18/2022 Have There Been Any Changes To Your Family Or Social Situation? No MIGRATION.27254 76913 Information not available 09/18/2022 When Did You Quit Smoking? 1-5yearssincelastc igarette MIGRATION.19051 16494 Information not available 09/18/2022 Are There Any Guns Present In Your Home? No MIGRATION.97000 03471 Information not available 09/18/2022 Do You Use Insect Repellent Routinely? No MIGRATION.31608 55083 Information not available 09/18/2022 [facility] You [facility] MIGRATION.68552 60435 Information not available 09/18/2022 Do You Have A Medical Power Of Coat Baster? No MIGRATION.15257 85945 Information not available 09/18/2022 Have You Ever Been Counseled For Unhealthy Alcohol Use? No MIGRATION.01557 85925 Information not available 09/18/2022 Do You Have Any Pets? Yes MIGRATION.01394 92455 Information not available 09/18/2022 What Is Your Relationship Status? MIGRATION.18503 48653 Information not available 09/18/2022 Do You Use Your Seat Belt Or Car Seat Routinely? Yes MIGRATION.97483 09695 Information not available 09/18/2022 Do You Have Smoke And Carbon Monoxide Detectors In Your Home? Yes MIGRATION.61112 30362 Information not available 09/18/2022 Are You Passively Exposed To Smoke? No MIGRATION.96924 34665 Information not available 09/18/2022 Are There Any Smokers In Your House? No MIGRATION.27694 61744 Information not available 09/18/2022 Do You Participate In Social Media? No MIGRATION.38660 10831 Information not available 09/18/2022 Do You Use Sunscreen Routinely? Yes MIGRATION.34814 95350 Information not available 09/18/2022 Has Tobacco Cessation Counseling Been Provided? No MIGRATION.62533 99753 Information not available 09/18/2022 Have You Recently Traveled Abroad? No MIGRATION.07493 60205 Information not available 09/18/2022 Are You Currently In School? No MIGRATION.23350 28144 Information not available 09/18/2022 Do You Have Any Dietary Restrictions? No MIGRATION.25033 98971 Information not available 09/18/2022 Sex: Male Functional Status Question Answer Note LastModified by Organizat ion Details LastModified Time Do you or have you ever used any other forms of tobacco or nicotine? No MIGRATION.46229128 26 Information not available 09/18/2022 What is your level of alcohol consumption? None MIGRATION.64855616 26 Information not available 09/18/2022 What is your exercise level? Occasional MIGRATION.07401012 26 Information not available 09/18/2022 Mental Status None recorded. Family History Relationship Description Onset Age of this Age Resolved Age Notes LastModified by Organization Details LastModified Time Sister Hypertensive disorder MIGRATION.607 [id number] Not available 09/18/2022 07:26:21 Maternal Grandfather Malignant neoplasm of prostate MIGRATION.372 1847217 Not available 09/18/2022 07:26:21 Mother Malignant neoplasm of breast MIGRATION.119 8069515 Not available 09/18/2022 07:26:21 Medical History Condition Response BLINDNESS N CYSTITIS N RHEUMATIC FEVER N KIDNEY STONES N BLADDER PROBLEMS N Enlarged Prostate N MRSA N OTHER # 1 N POLIO N LUNG DISEASE/DISORDER N HISTORY OF DRUG ABUSE N RADIATION / CHEMOTHERAPY N COPD N Other # 2 N BLOOD DISEASES N SURGERY N EAR OR HEARING PROBLEMS N MUMPS N SHINGLES N FEMALE PROBLEMS / INFECTIONS N BOWEL PROBLEMS N DEPRESSION (INCLUDING POST ) N STROKE/TIA [...] HAVE YOU BEEN HOSPITALIZED OR SEEN IN [facility] ER IN THE PAST YEAR ? Y [...] Recorded Time HPV9 09/10/2021 completed Not Available [facility] 09/18/2022 07:34:06 Influenza, split virus, quadrivalent, PF 05/16/2020 completed Not Available [facility] 07:34:07 HPV9 05/16/2020 completed Not Available [facility] 09/18/2022 07:34:07 Tdap 09/16/2019 completed Not Available [facility] 09/18/2022 07:34:07 HPV9 12/18/2022 completed Karon Arredondo RN null, [facility] [employer] 12/18/2022 12:40:48 Influenza, split virus, trivalent, PF 07/01/2024 completed DARRICK May, [facility] [employer] [facility] ) 07/02/2024 10:32:24 Past Encounters Encounter ID Performer Location Encounter Start Date Encounter Closed Date Diagnosis/Indication Diagnosis SNOMED-CT Code Diagnosis ICD10 Code Diagnosis IMO Codes Diagnosis Note [id number] Thad Kenny DPM [facility] [address] [place] [address] 02/23/2025 10:59:39 02/26/2025 04:03:15 [id number] Thad Kenny DPM [facility] [address] [place] [address] 03/02/2025 11:27:04 03/02/2025 13:48:36 Open wound of lower limb 03414070 S81.801D S81.802D 2621883650 continue daily wound careNew compressio n dressings with bilateral Profore is applied to lower extremitie sVenous ultrasound reviewed negative for DVTfollow- up 1 week for Nurse visit and 2 weeks for doctor visits Swelling o f bilateral lower limbs 232760057 M79.89 Secondary to above Peripheral venous insufficiency 19392768 I87.2 63055 continue chronic compressio nfollow-up with vascular Pruritic rash 93312221 L 28.2 954039 bilateral feet [id number] Thad Kenny DPM [facility] [address] [place] [address] 03/09/2025 09:54:18 03/09/2025 14:57:21 Open wound of lower limb 83205527 S81.801D S81.802D 8932800627 continue daily wound careNew compressio n dressings with bilateral Profore is applied to lower extremitie sVenous ultrasound reviewed negative for DVTfollow- up 1 week Swelling o f bilateral lower limbs 492793851 M79.89 Secondary to above Peripheral venous insufficiency 19691113 I87.2 28817 continue chronic compressio nfollow-up with vascular Pruritic rash 84494954 L 28.2 102618 bilateral feet [id number] Ray Moreno MD [facility] [address] [address] 03/09/2025 16:47:13 03/09/2025 17:13:43 Liver enzymes level above reference range 121303097 R74.01 Improved Hypertensive disorder 38 305082 I10 History of diabetes mellitus 544460653 Z86.39 Morbid obesity 132107245 E66.01 Vitamin D deficiency 347 16813 E55.9 Weakness o f left facial muscle 055406737 R29.810 Fatigue 59756945 R53.83 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sm 783310 06 E29.1 13626719 Primary hypothyroidism 04720966 E03.9 43367 Anemia 574053620 D64.9 9523818 Ex-cigarette smoker 2810 52625 Z87.891 028586 Stasis dermatitis 058410 05 I87.2 43929140 B/l legs [id number] Thad Kenny DPM [facility] [address] [place] [address] 03/16/2025 11:01:43 03/16/2025 17:01:40 Open wound of lower limb 61916531 S81.801D S81.802D 3749607631 two wounds- right lower legNew compressio n dressings with right Profore is applied to lower extremitie sTubigrip applied left lower legVenous ultrasound reviewed negative for DVTfollow- up 1 week Peripheral venous insufficiency 60032177 I87.2 25995 continue chronic compressio nfollow-up with vascular Pruritic rash 39087193 L 28.2 823635 bilateral feet- resolving [id number] Thad Kenny DPM [facility] [address] [place] [address] 03/23/2025 12:31:42 03/23/2025 17:19:50 Open wound of lower limb 72103312 S81.801D S81.802D 7116845862 two wounds- right lower legNew compressio n dressings with right Profore is applied to lower extremitie sTubigrip applied left lower legVenous ultrasound reviewed negative for DVTfollow- up 1 week Peripheral venous insufficiency 34760608 I87.2 91326 continue chronic compressio nfollow-up with vascular Insect bit e of lower limb 142026341 S80.869D W57.XXXD 09880427 bilateral lower legsPET and house has been treated Health Concerns Section Related Observation LastModified by Organization Detai ls LastModified Time None Recorded Concern Status LastModified by Organization Details LastModified Time None Recorded Payers Encounter Date Sequence Insurance Name Policy Number Policy Leonard Covered Member ID Leonard Member ID Guarantor Name 03/23/2025 1 [employer] [id number] Zheng Carrizales [id number] Zheng Carrizales Notes Date Note Type Note Provider Name and Address Organization Details Recorded Time 03/23/2025 text/html ROS as noted in the HPI . Patient is 40-year-old male who returns to the office for follow-up on lower extremity venous wounds. Has developed new wounds to the lower leg. Patient rash is improving but he has new areas of the rash. Patient recently discovered that his dog had fleas and sleeps at the bottom of his feet and the rash is secondary to bug bites as he is allergic to bug bites. He states he gets the same reaction with mosquitos. Thad Kenny DPM [address] [address], [place], [address], [place] [facility] [employer] [facility] 03/23/2025 14:20:01
--- OUTSIDE RECORDS SUMMARY | 2025-06-15 01:22 | XMS_ITS | Continuity of Care Document ---
Author Organization [place] - [facility] Address [address] [place] [address] Care Team Providers Care Corporate Secretary Name Role Phone RAY MORENO Primary Care Provider [phone] Assessment No assessment recorded. Plan of Treatment [...] 7.5 x10'3 /uL 4.2-10 .8 Not Available [facility] (Lab) [address] [place], [address], 06/03/2025 12:26:43 06/03/20 25 06/03/2025 CBC/C OMPLE TE BLD COUNT W/DIF F red blood cells 5.24 x10'6 /uL 4.10-5 .80 Not Available [facility] (Lab) [address] [place], [address], 06/03/2025 12:26:43 06/03/20 25 06/03/2025 CBC/C OMPLE TE BLD COUNT W/DIF F hemoglobin 13.9 g/dL 13.2-1 7.0 Not Available [facility] (Lab) [address] [place], [address], 06/03/2025 12:26:43 06/03/20 25 06/03/2025 CBC/C OMPLE TE BLD COUNT W/DIF F hematocrit 44.7 % 39.3-5 0.0 Not Available [facility] (Lab) [address] [place], [address], 06/03/2025 12:26:43 06/03/20 25 06/03/2025 CBC/C OMPLE TE BLD COUNT W/DIF F mean red cell volume 85.3 fL 80.0-9 7.0 Not Available [facility] (Lab) [address] [place], [address], 06/03/2025 12:26:43 06/03/20 25 06/03/2025 CBC/C OMPLE TE BLD COUNT W/DIF F mean red cell hemoglobin 26.5 pg 27.0-3 3.0 low Not Available [facility] (Lab) [address] [place], [address], 06/03/2025 12:26:43 06/03/20 25 06/03/2025 CBC/C OMPLE TE BLD COUNT W/DIF F mean RBC HGB concentratio n 31.1 g/dL 31.0-3 6.0 Not Available [facility] (Lab) [address] [place], [address], 06/03/2025 12:26:43 06/03/20 25 06/03/2025 CBC/C OMPLE TE BLD COUNT W/DIF F red cell distribution width 15.9 % 11.8-1 5.5 high Not Available [facility] (Lab) [address] [place], [address], 06/03/2025 12:26:43 06/03/20 25 06/03/2025 CBC/C OMPLE TE BLD COUNT W/DIF F platelets 232 x10'3 /uL 150-40 0 Not Available [facility] (Lab) [address] [place], [address], 06/03/2025 12:26:43 06/03/20 25 06/03/2025 CBC/C OMPLE TE BLD COUNT W/DIF F mean platelet volume 10.6 fL 9.0-12 .4 Not Available [facility] (Lab) [address] [place], [address], 06/03/2025 12:26:43 06/03/20 25 06/03/2025 CBC/C OMPLE TE BLD COUNT W/DIF F neutrophils 77.7 % 39.0-7 2.0 high Not Available [facility] (Lab) [address] [place], [address], 06/03/2025 12:26:43 06/03/20 25 06/03/2025 CBC/C OMPLE TE BLD COUNT W/DIF F lymphocytes 14.2 % 16.0-4 7.0 low Not Available [facility] (Lab) [address] [place], [address], 06/03/2025 12:26:43 06/03/20 25 06/03/2025 CBC/C OMPLE TE BLD COUNT W/DIF F monocytes 5.5 % 5.0-12 .0 Not Available [facility] (Lab) [address] [place], [address], 06/03/2025 12:26:43 06/03/20 25 06/03/2025 CBC/C OMPLE TE BLD COUNT W/DIF F eosinophils 1.5 % 1.0-7. 0 Not Available [facility] (Lab) [address] [place], [address], 06/03/2025 12:26:43 06/03/20 25 06/03/2025 CBC/C OMPLE TE BLD COUNT W/DIF F basophils 0.7 % 0.0-2. 0 Not Available [facility] (Lab) [address] [place], [address], 06/03/2025 12:26:43 06/03/20 25 06/03/2025 CBC/C OMPLE TE BLD COUNT W/DIF F immature granulocytes 0.4 % 0.00-0 .50 Not Available [facility] (Lab) [address] [place], [address], 06/03/2025 12:26:43 06/03/2006/03/2025 CBC/C OMPLE TE BLD COUNT W/DIF F neutrophils, absolute count 5.85 x10'3 /uL 1.5-8. 0 Not Available [facility] (Lab) [address] [place], [address], 06/03/2025 12:26:43 06/03/20 25 06/03/2025 CBC/C OMPLE TE BLD COUNT W/DIF F lymphocytes, absolute count 1.07 x10'3 /uL 1.07-3 .43 Not Available [facility] (Lab) [address] [place], [address], 06/03/2025 12:26:43 06/03/20 25 06/03/2025 CBC/C OMPLE TE BLD COUNT W/DIF F monocytes, absolute count 0.41 x10'3 /uL 0.29-0 .99 Not Available [facility] (Lab) [address] [place], [address], 06/03/2025 12:26:43 06/03/20 25 06/03/2025 CBC/C OMPLE TE BLD COUNT W/DIF F eosinophils, absolute count 0.11 x10'3 /uL 0.02-0 .53 Not Available [facility] (Lab) [address] [place], [address], 06/03/2025 12:26:43 06/03/20 25 06/03/2025 CBC/C OMPLE TE BLD COUNT W/DIF F basophils, absolute count 0.05 x10'3 /uL 0.01-0 .08 Not Available [facility] (Lab) [address] [place], [address], 06/03/2025 12:26:43 06/03/20 25 06/03/2025 CBC/C OMPLE TE BLD COUNT W/DIF F immature granulocytes ,absolute 0.03 x10'3 /uL 0.00-0 .05 Not Available [facility] (Lab) [address] [place], [address], 06/03/2025 12:26:43 06/03/20 25 06/03/2025 CBC/C OMPLE TE BLD COUNT W/DIF F nucleated red blood cells 0.0 % -0 Not Available [facility] (Lab) [address] [place], [address], 06/03/2025 12:26:43 06/03/20 25 06/03/2025 CBC/C OMPLE TE BLD COUNT W/DIF F NRBC# 0.00 x10'3 /uL Not Available [facility] (Lab) [address] [place], [address], 06/03/2025 12:26:43 06/03/20 25 06/03/2025 TSH thyroid-stim ulating hormone 2.400 uIU/m L 0.465- 4.680 Not Available [facility] (Lab) [address] [place], [address], 06/03/2025 13:06:33 06/03/20 25 06/03/2025 T4 FREE free T4 1.33 NG/dL 0.78-2 .19 Not Available [facility] (Lab) [address] [place], [address], 06/03/2025 13:06:49 Result Notes None recorded. Problems Name Problem SNOMED Code Status Onset Date Resolution Date Notes Provider Name and Address Organization Details Recorded Time Morbid obesity 983757122 Active 2019 Ray Moreno MD [address] [facility], [facility] [address], [place], [address] , [employer] 5 17:50:52 Ex-smoker 4427200 Active 2019 Not Available [employer] 3 07:29:44 History of sepsis 4839866447868 00 Active 2019 Not Available [employer] 3 07:29:40 Acute kidney injury 18960063 Active 2019 Not Available [employer] 3 07:29:40 Persistent insomnia 542478177 Active 2019 Not Available [employer] 3 07:29:40 Steatotic liver disease 304314618 Active 2019 Not Available [employer] 3 07:29:40 Anemia 184550880 Active 2019 Ray Moreno MD [address] [facility], [facility] [address], [place], [address] , [employer] 5 17:04:16 Peripheral edema 474387014 Active 2019 Not Available [employer] 3 07:29:41 Cellulitis of lower limb 511303816 Active 2019 Not Available [employer] 3 07:29:43 Candidiasi s of mouth 98228592 Active 2019 Not Available [employer] 3 07:29:44 Umbilical hernia 363241720 Active 2019 Not Available [employer] 3 07:29:42 Uncontroll ed type 2 diabetes mellitus 699713861 Active 2019 Not Available [employer] 3 07:29:43 Microscopi c hematuria 658724171 Active 2019 Not Available [employer] 3 07:29:41 Vitamin D deficiency 83883935 Active 2019 Not Available [employer] 3 07:29:42 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 Not Available [employer] 3 07:29:43 History of atrial fibrillati on 072491953 Active 2019 Not Available [employer] 3 07:29:42 Type 2 diabetes mellitus without complicati on 522258785 Active 2019 Not Available [employer] 3 07:29:42 History of diabetes mellitus 894941164 Active 2019 Not Available [facility] 3 07:29:40 Increased frequency of urination 446869928 Active 2021 Not Available [employer] 3 07:29:40 Kole hematuria 663272487 Active 2021 Not Available [employer] 3 07:29:41 Blood in urine 42180212 Active 2021 Not Available [employer] 3 07:29:42 Lower urinary tract symptoms due to benign prostatic hypertroph y 2985256742420 1 Active 2021 Not Available [employer] 3 07:29:41 Disorder of prostate 06930658 Active 2021 Not Available [employer] 3 07:29:42 Active or passive immunizati on Active 2021 Not Available [employer] 3 07:29:40 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 Not Available [employer] 3 07:29:41 Adult health examinatio n Active 2021 Not Available [facility] 3 07:29:41 Urethral stricture 78981016 Active 2021 Not Available [employer] 3 07:29:44 Pain in right sacroiliac joint 8279367152643 9107 Active 2021 Not Available [employer] 3 07:29:40 Hypothyroi dism 58510168 Active 2021 Not Available [employer] 3 07:29:43 Swelling of bilateral lower limbs 266905629 Active 2021 Not Available [facility] 3 07:29:44 Acute urinary tract infection 791556121 Active 2021 Not Available [employer] 3 07:29:43 Bronchitis 10474361 Active 2021 Not Available [facility] 3 07:29:42 Cough 59478506 Active 2021 Not Available [facility] 3 07:29:43 Nasal congestion 19782212 Active 2022 Ray Moreno MD [address], [place], [address] , [place] [facility] 3 16:31:40 Seasonal allergic rhinitis 971704736 Active 2022 Ray Mroeno MD [address], [address], [place], [address] , [place] [facility] 3 17:38:01 Lumbar spondylosi s 185485612 Active 2022 Ray Moreno MD [address], [address], [place], [address] , [place] [facility] 3 10:23:15 Sleep apnea 32492481 Active 2022 Ray Moreno MD [address], [place], [address] , [place] [facility] 3 10:26:16 Hypertensi ve disorder 46855426 Active 2022 Ray Moreno MD [address], [address], [place], [address] , [place] [facility] 3 10:30:36 Pancreatit is 00669033 Active 2022 Ray Moreno MD [address], [address], [place], [address] , [place] [facility] 3 14:14:30 Liver enzymes level above reference range 948143503 Active 2022 Ray Moreno MD [address], [address], [place], [address] , [place] [facility] 3 14:26:53 [place] palsy of left side of face 8136779944116 9103 Active 2023 Ray Moreno MD [address], [place], [address] , [place] [facility] 4 12:52:16 Weakness of left facial muscle 967020295 Active 2023 Ray Moreno MD [address], [address], [place], [address] , [place] [facility] 4 12:54:06 Fatigue 88510345 Active 2023 Ray Moreno MD [address], [address], [place], [address] , [place] [facility] 4 14:59:09 COVID-19 081185431 Active 2024 Ray Moreno MD [address], [place], [address] , [place] [facility] 5 09:41:43 Fever with chills 296217656 Active 2024 Ray Moreno MD [address], [address], [place], [address] , [place] [facility] 5 09:42:06 Open wound of left lower leg 5332436629673 9106 Active 2024 Ray Moreno MD [address], [address], [place], [address] , [place] [facility] 5 17:36:38 Open wound of lower limb 43627083 Active 2024 Ray Moreno MD [address], [address], [place], [address] , [place] [facility] 5 17:37:18 Ulcer of lower extremity 85529873 Active 2024 Ray Moreno MD [address], [place], [address] , [employer] 5 17:39:05 Swelling of lower leg 161730814 Active 2024 Ray Moreno MD [address], [place], [address] , [employer] 5 17:41:05 Open wound of lower limb 70518706 Active 2024 Thad Kenny DPM [address], [place], [address] , [employer] 14:17:31 Lymphedema of limb 027287074 Active 2024 Thad Kenny DPM [address], [place], [address] , [employer] 5 17:38:13 Peripheral venous insufficie ncy 91188171 Active 2024 Thad Kenny DPM [address], [place], [address] , [employer] 15:36:51 Pruritic rash 50051273 Active 2024 Thad Kenny DPM [address], [place], [address] , [employer] 5 12:15:14 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 sm 44400216 Active 2024 Ray Moreno MD [address], [place], [address] , [employer] 5 16:31:18 Primary hypothyroi dism 20300048 Active 2024 Ray Moreno MD [address], [address], [place], [address] , [employer] 5 17:02:26 Stasis dermatitis 34839311 Active 2024 Ray Moreno MD [address], [place], [address] , [facility] 5 17:17:05 Insect bite of lower limb 184464956 Active 2024 Thad Kenny DPM [address], [address] [address], [place], [address] , [facility] 5 14:16:52 Open wound of toe 048253522 Active 2024 Thad Kenny DPM [address], [address] [address], [place], [address] , [facility] 5 09:20:59 Eczema of lower limb 225705138 Active 2024 Ray Moreno MD [address], [address] [address], [place], [address] , [facility] 5 17:16:58 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 232946508 Active 2024 Ray Moreno MD [address], [address] [address], [place], [address] , [facility] 5 17:19:16 Abnormal gait 71678502 Active 2024 Ray Moreno MD [address], [address] [address], [place], [address] , [facility] 5 17:40:46 Ulcer of toe of left foot Active 2024 Thad Kenny DPM [address], [address] [address], [place], [address] , [facility] [employer] [facility] 5 09:02:30 Notes:Ray Moreno MD [phone] [facility] home sleep study 01/02/23 AHI = 41, [...] 5 Wound Care-Podiatry completed Celia Li RN [place] [facility] 05/25/2025 12:24:51 5 Wound Care-Podiatry completed Celia Li RN [facility] [employer] 05/11/2025 12:39:44 5 Wound Care-Podiatry completed Thad Kenny DPM [address], [place], [address], [employer] 04/27/2025 13:57:28 5 Wound Care-Podiatry completed Thad Kenny DPM [address], [place], [address], [employer] 04/21/2025 15:27:03 5 Wound Care-Podiatry completed Celia Li RN [place] [facility] 04/13/2025 15:26:01 5 Transitional_C are_Management completed Tanya Moran RN [employer] 04/12/2025 17:03:42 5 Wound Care-Podiatry completed Thad Kenny DPM [address], [place], [address], [employer] 04/04/2025 09:19:04 5 Wound Care-Podiatry completed Celia Li RN [place] [facility] 03/23/2025 13:10:00 5 Wound Care-Podiatry completed Celia Li RN [place] [facility] 03/16/2025 11:32:52 5 Wound Care-Podiatry completed Celia Li RN [facility] [employer] 03/09/2025 10:07:15 5 Wound Care-Podiatry completed Celia Li RN [place] [facility] 03/02/2025 11:48:48 5 Wound Care-Podiatry completed Celia Li RN [facility] [employer] [facility] 02/23/2025 12:01:59 5 Wound Care-Podiatry completed Celia Li RN [facility] 02/16/2025 11:40:09 5 Wound Care-Podiatry completed Justice Dave RN [facility] [employer] [facility] 02/09/2025 10:23:16 5 Wound Care-Podiatry completed Thad Kenny DPM [address], [place], [address], [facility] [employer] [facility] 02/02/2025 13:37:03 5 Wound Care-Podiatry completed Celia Li RN [facility] [employer] [facility] 01/26/2025 15:49:01 5 Wound Care-Podiatry completed Thad Kenny DPM [address], [address], [place], [address], [facility] [employer] [facility] 01/19/2025 13:31:19 5 Wound Care-Podiatry completed Justice Dave RN [facility] 01/17/2025 09:01:39 5 Wound Care-Podiatry completed Celia Li RN [facility] 01/05/2025 17:17:17 2 Hernia Surgery completed Not Available [facility] 09/18 07:26:20 Vasectomy completed Not Available [facility] 0 09/18/2022 07:26:20 Imaging Results None recorded. Procedure Notes None recorded. Medical Equipment None Reported. Allergies Allergen ID Allergen Name Allergen Category Reaction Reaction Severity Criticality Documentation Date Start Date Code Code System Note Provider Name and Address Organization Details Recorded Time 96445 peanut allergeni c extract food,medi cation itching mild Not available 09/18/2022 08707 8 RxNorm Not Available [facility] 3 07:34:13 83059 prednison e medicatio n other Not available high 12/28/20242019 8640 RxNorm Hyper glyce hipolito Blood sugar s shoot up to above 800 DARRICK May, [facility] [employer] 17:32:35 90765 Betadine medicatio n other severe high 04/12/20252024 80551 0 RxNorm blist ers, sores DARRICK May, [facility] [employer] 17:11:56 83791 prednisol one medicatio n Not available Not available Not available 06/03/20252024 8638 RxNorm Not Available [employer] 09:05:32 55301 iodine medicatio n Not available Not available Not available 06/03/20252024 5933 RxNorm sever e unrec ogniz ed react ion (text : Conta ct Despard titis , code: 59035 004) [facility] Not Available [employer] prod 09:05:33 Medications Name [...] administ ered by the provider 11/25 completed ND: 0003-049 11-07 Not Available Not Available Not [...] Former Smoker quit in 2017 [facility] Available [facility] 09/18/2022 07:25:57 Do You Have An Advance Directive? No MIGRATION.36308 42700 Information not available 09/18/2022 Do You Wear A Helmet When Biking? No MIGRATION.80434 84590 Information not available 09/18/2022 What Is Your Level Of Caffeine Consumption? Moderate MIGRATION.52419 08484 Information not available 09/18/2022 In The 14 Days Before Symptom Onset, Have You Had Close Contact With A Laboratory-confi rmed COVID-19 While That Case Was Ill? No MIGRATION.59588 76454 Information not available 09/18/2022 In The 14 Days Before Symptom Onset, Have You Had Close Contact With A Person Who Is Under Investigation For COVID-19 While That Person Was Ill? No MIGRATION.40636 37751 Information not available 09/18/2022 What Type Of Diet Are You Following? REGULAR MIGRATION.96906 18722 Information not available 09/18/2022 What Is The Highest Grade Or Level Of School You Have Completed Or The Highest Degree You Have Received? [id number] MIGRATION.75423 30058 Information not available 09/18/2022 Have There Been Any Changes To Your Family Or Social Situation? No MIGRATION.81087 12762 Information not available 09/18/2022 When Did You Quit Smoking? 1-5yearssincelastc igarette MIGRATION.80495 33735 Information not available 09/18/2022 Are There Any Guns Present In Your Home? No MIGRATION.70543 93714 Information not available 09/18/2022 Do You Use Insect Repellent Routinely? No MIGRATION.52646 36646 Information not available 09/18/2022 Where Do You Live? [facility] MIGRATION.00563 53248 Information not available 09/18/2022 Do You Have A Medical Power Of Healthcare Associate? No MIGRATION.84403 78994 Information not available 09/18/2022 Have You Ever Been Counseled For Unhealthy Alcohol Use? No MIGRATION.71061 44555 Information not available 09/18/2022 Do You Have Any Pets? Yes MIGRATION.33038 56121 Information not available 09/18/2022 What Is Your Relationship Status? MIGRATION.16499 57986 Information not available 09/18/2022 Do You Use Your Seat Belt Or Car Seat Routinely? Yes MIGRATION.23315 42348 Information not available 09/18/2022 Do You Have Smoke And Carbon Monoxide Detectors In Your Home? Yes MIGRATION.61204 11329 Information not available 09/18/2022 Are You Passively Exposed To Smoke? No MIGRATION.87061 62726 Information not available 09/18/2022 Are There Any Smokers In Your House? No MIGRATION.63821 42944 Information not available 09/18/2022 Do You Participate In Social Media? No MIGRATION.05496 70729 Information not available 09/18/2022 Do You Use Sunscreen Routinely? Yes MIGRATION.45323 88974 Information not available 09/18/2022 Has Tobacco Cessation Counseling Been Provided? No MIGRATION.34617 87074 Information not available 09/18/2022 Have You Recently Traveled Abroad? No MIGRATION.90990 83419 Information not available 09/18/2022 Are You Currently In School? No MIGRATION.06147 52625 Information not available 09/18/2022 Do You Have Any Dietary Restrictions? No MIGRATION.05381 78179 Information not available 09/18/2022 Sex: Male Functional Status Question Answer Note LastModified by Organizat ion Details LastModified Time Do you or have you ever used any other forms of tobacco or nicotine? No MIGRATION.97380740 26 Information not available 09/18/2022 What is your level of alcohol consumption? None MIGRATION.49502834 26 Information not available 09/18/2022 What is your exercise level? Occasional MIGRATION.96024611 26 Information not available 09/18/2022 Mental Status None recorded. Family History Relationship Description Onset Age of this Age Resolved Age Notes LastModified by Organization Details LastModified Time Sister Hypertensive disorder MIGRATION.087 [id number] Not available 09/18/2022 07:26:21 Maternal Grandfather Malignant neoplasm of prostate MIGRATION.577 [id number] Not available 09/18/2022 07:26:21 Mother Malignant neoplasm of breast MIGRATION.021 [id number] Not available 09/18/2022 07:26:21 Medical History Condition [...] HAVE YOU BEEN HOSPITALIZED OR SEEN IN [facility] IN THE PAST YEAR ? Y [...] Time HPV9 09/10/2021 completed Not Available [facility] 09/18/2022 07:34:06 Influenza, split virus, quadrivalent, PF 05/16/2020 completed Not Available [facility] 07:34:07 HPV9 05/16/2020 completed Not Available [facility] 09/18/2022 07:34:07 Tdap 09/16/2019 completed Not Available [facility] 09/18/2022 07:34:07 HPV9 12/18/2022 completed Karon Arredondo RN null, [facility] [employer] [facility] 12/18/2022 12:40:48 Influenza, split virus, trivalent, PF 07/01/2024 completed Tanya Moran RN null, [facility] [employer] [facility] 07/02/2024 10:32:24 Past Encounters Encounter ID Performer Location Encounter Start Date Encounter Closed Date Diagnosis/Indication Diagnosis SNOMED-CT Code Diagnosis ICD10 Code Diagnosis IMO Codes Diagnosis Note [id number] Thad Kenny DPM [facility] [address] [place] [address] 05/11/2025 12:08:02 05/11/2025 14:19:43 Ulcer of toe of left foot 5694787131 0901989 L97.522 51725710 3 woundsdail y dressingsm onitor for signs of infectionf ollow-up on week Peripheral venous insufficiency 44629514 I87.2 49421 continue chronic compressio nfollow-up with vascular [id number] Ray Moreno MD [facility] [address] 05/18/2025 09:19:01 05/18/2025 09:43:37 [id number] Thad Kenny DPM [facility] [address] [place] [address] 05/25/2025 11:59:24 06/01/2025 14:59:23 Ulcer of toe of left foot 3942918425 4626152 L97.522 54441827 Healedfoll ow-up as needed Peripheral venous insufficiency 11514103 I87.2 09087 continue chronic compressio nfollow-up with vascular [id number] Ray Moreno MD [facility] [address] 06/03/2025 09:04:28 06/03/2025 09:26:11 Health Concerns Section Related Observation LastModified by Organization Detai ls LastModified Time None Recorded Concern Status LastModified by Organization Details LastModified Time None Recorded Payers Encounter Date Sequence Insurance Name Policy Number Policy Leonard Covered Member ID Leonard Member ID Guarantor Name 06/03/2025 1 [employer] [id number] Zheng Carrizales [id number] Zheng Carrizales
--- OUTSIDE RECORDS SUMMARY | 2025-06-15 01:22 | XMS_ITS | Clinical Summary ---
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
--- OUTSIDE RECORDS SUMMARY | 2025-06-15 01:22 | XMS_ITS | Continuity of Care Document ---
Author Organization [place] [facility] [employer], [facility] Address [address] [place] [address] Care Team Providers Care Instant Potato Processor Name Role Phone RAY MORENO Primary Care Provider Assessment Encounter Date Assessment Date Assessment LastModified by Organization Details LastModified Time 04/27/2025 04/27/2025 This note is dictated and transcribed by [employer] Software. Base Remover variances may occur. Despite proofreading, typographical errors may occur. Occasional wrong-word or 'spzbd-z-[id number]' substitutions may have occurred due to the inherent limitations of voice recording. Read the chart carefully and recognize, using context, where substitutions have occurred. [email or web address] Not available 04/27/2025 13:57:58 Plan of Treatment Reminders Order Date Submit [...] XR, foot No observ ation record ed. [address], [place], [address], 04/12/2025 17:16:09 04/06/20 25 04/06/2025 US, renal No observ ation record ed. [address], [place], [address], 04/12/2025 17:16:09 Result Notes None recorded. Problems Name Problem SNOMED Code Status Onset Date Resolution Date Notes Provider Name and Address Organization Details Recorded Time Morbid obesity 818095932 Active 2019 Ray Moreno MD [address], [facility], [place], [address] , [employer] 5 17:50:52 Ex-smoker 4475721 Active 2019 Not Available [employer] 3 07:29:44 History of sepsis 7710412026163 00 Active 2019 Not Available [employer] 3 07:29:40 Acute kidney injury 82881766 Active 2019 Not Available [employer] 3 07:29:40 Persistent insomnia 617573564 Active 2019 Not Available [employer] 3 07:29:40 Steatotic liver disease 886349075 Active 2019 Not Available [employer] 3 07:29:40 Anemia 255830109 Active 2019 Ray Moreno MD [address] [employer] [facility], [facility], [address], [place], [address] , [employer] 5 17:04:16 Peripheral edema 139397033 Active 2019 Not Available [employer] 3 07:29:41 Cellulitis of lower limb 408346071 Active 2019 Not Available [employer] 3 07:29:43 Candidiasi s of mouth 33770839 Active 2019 Not Available [employer] 3 07:29:44 Umbilical hernia 751891152 Active 2019 Not Available [employer] 3 07:29:42 Uncontroll ed type 2 diabetes mellitus 357606834 Active 2019 Not Available [employer] 3 07:29:43 Microscopi c hematuria 878694969 Active 2019 Not Available [employer] 3 07:29:41 Vitamin D deficiency 07762860 Active 2019 Not Available [employer] 3 07:29:42 Autoimmune hemolytic anemia 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 Active 2019 Not Available [employer] 3 07:29:43 History of atrial fibrillati on 427977338 Active 2019 Not Available [employer] 3 07:29:42 Type 2 diabetes mellitus without complicati on 806960369 Active 2019 Not Available [facility] 3 07:29:42 History of diabetes mellitus 819629906 Active 2019 Not Available [employer] 3 07:29:40 Increased frequency of urination 629484363 Active 2021 Not Available [employer] 3 07:29:40 Kole hematuria 426753696 Active 2021 Not Available [facility] 3 07:29:41 Blood in urine 21423758 Active 2021 Not Available [facility] 3 07:29:42 Lower urinary tract symptoms due to benign prostatic hypertroph y 0346226803120 1 Active 2021 Not Available [facility] 3 07:29:41 Disorder of prostate 15352049 Active 2021 Not Available [facility] 3 07:29:42 Active or passive immunizati on Active 2021 Not Available [facility] 3 07:29:40 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 2021 Not Available [employer] 3 07:29:41 Adult health examinatio n Active 2021 Not Available [employer] 3 07:29:41 Urethral stricture 73586755 Active 2021 Not Available [employer] 3 07:29:44 Pain in right sacroiliac joint 7597464689353 9107 Active 2021 Not Available [facility] 3 07:29:40 Hypothyroi dism 39880581 Active 2021 Not Available [employer] 3 07:29:43 Swelling of bilateral lower limbs 706714735 Active 2021 Not Available [facility] 3 07:29:44 Acute urinary tract infection 534051505 Active 2021 Not Available [facility] 3 07:29:43 Bronchitis 80617197 Active 2021 Not Available [facility] 3 07:29:42 Cough 21887955 Active 2021 Not Available [facility] 3 07:29:43 Nasal congestion 59942968 Active 2022 Ray Moreno MD [address], [address], [place], [address] , [place] [facility] 3 16:31:40 Seasonal allergic rhinitis 075700582 Active 2022 Ray Moreno MD [address], [address], [place], [address] , [facility] 3 17:38:01 Lumbar spondylosi s 379991359 Active 2022 Ray Moreno MD [address], [address], [place], [address] , [place] [facility] 3 10:23:15 Sleep apnea 33939451 Active 2022 Ray Moreno MD [address], [address], [place], [address] , [place] [facility] 3 10:26:16 Hypertensi ve disorder 01793980 Active 2022 Ray Moreno MD [address], [address], [place], [address] , [place] [facility] 3 10:30:36 Pancreatit is 81970228 Active 2022 Ray Moreno MD [address], [address], [place], [address] , [place] [facility] 3 14:14:30 Liver enzymes level above reference range 293800044 Active 2022 Ray Moreno MD [address], [address], [place], [address] , [place] [facility] 3 14:26:53 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 5185331550580 9103 Active 2023 Ray Moreno MD [address], [address], [place], [address] , [place] [facility] 4 12:52:16 Weakness of left facial muscle 650202413 Active 2023 Ray Moreno MD [address], [address], [place], [address] , [place] [facility] 4 12:54:06 Fatigue 99451371 Active 2023 Ray Moreno MD [address], [address], [place], [address] , [place] [facility] 4 14:59:09 COVID-19 312663596 Active 2024 Ray Moreno MD [address], [address], [place], [address] , [place] [facility] 5 09:41:43 Fever with chills 795044109 Active 2024 Ray Moreno MD [address], [address], [place], [address] , [place] [facility] 5 09:42:06 Open wound of left lower leg 9462650507844 9106 Active 2024 Ray Moreno MD [address], [address], [place], [address] , [place] [facility] 5 17:36:38 Open wound of lower limb 12084051 Active 2024 Ray Moreno MD [address], [address], [place], [address] , [place] [facility] 5 17:37:18 Ulcer of lower extremity 91395868 Active 2024 Ray Moreno MD [address], [address], [place], [address] , [employer] 17:39:05 Swelling of lower leg 467375724 Active 2024 Ray Moreno MD [address], [address], [place], [address] , [employer] 5 17:41:05 Open wound of lower limb 76398970 Active 2024 Thad Kenny DPM [address], [address], [place], [address] , [employer] 14:17:31 Lymphedema of limb 824232465 Active 2024 Thad Kenny DPM [address], [address], [place], [address] , [employer] 17:38:13 Peripheral venous insufficie ncy 86593280 Active 2024 Thad Kenny DPM [address], [address], [place], [address] , [employer] 15:36:51 Pruritic rash 76715174 Active 2024 Thad Kenny DPM [address], [address], [place], [address] , [employer] 5 12:15:14 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 sm 31212783 Active 2024 Ray Moreno MD [address], [address], [place], [address] , [employer] 16:31:18 Primary hypothyroi dism 92743559 Active 2024 Ray Moreno MD [address], [address], [place], [address] , [employer] 5 17:02:26 Stasis dermatitis 13341274 Active 2024 Ray Moreno MD [address] [facility], [address], [place], [address] , [employer] [facility] 5 17:17:05 Insect bite of lower limb 690180307 Active 2024 Thad Kenny DPM [address] [facility], [address], [place], [address] , [employer] [facility] 5 14:16:52 Open wound of toe 696014571 Active 2024 Thad Kenny DPM [address] [facility], [address], [place], [address] , [employer] [facility] [employer] [facility] 5 09:20:59 Eczema of lower limb 289030733 Active 2024 Ray Moreno MD [address], [place] [address], [place], [address] , [employer] [facility] [employer] [facility] 5 17:16:58 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 591439731 Active 2024 Ray Moreno MD [address] [facility], [place] [address], [place], [address] , [employer] [facility] [employer] [facility] 5 17:19:16 Abnormal gait 22317656 Active 2024 Ray Moreno MD [address], [place] [address], [place], [address] , [employer] [facility] [employer] [facility] 5 17:40:46 Ulcer of toe of left foot Active 2024 Thad Kenny DPM [address] [facility], [place] [address], [place], [address] , [employer] [facility] 5 09:02:30 Notes:Ray Moreno MD [phone] [facility] home sleep study 01/02/23 AHI = [...] 5 Wound Care-Podiatry completed Celia Li RN [facility] [employer] [facility] 05/25/2025 12:24:51 5 Wound Care-Podiatry completed Celia Li RN [facility] [place] [facility] 05/11/2025 12:39:44 5 Wound Care-Podiatry completed Thad Kenny DPM [address], [address], [place], [address], [facility] [employer] [facility] [employer] [facility] 04/27/2025 13:57:28 5 Wound Care-Podiatry completed Thad Kenny DPM [address], [address], [place], [address], [facility] [employer] [facility] 04/21/2025 15:27:03 5 Wound Care-Podiatry completed Celia Li RN [facility] [employer] [facility] 04/13/2025 15:26:01 5 Transitional_C are_Management completed Tanya Moran RN [facility] [employer] [facility] 04/12/2025 17:03:42 5 Wound Care-Podiatry completed Thad Kenny DPM [address], [address], [place], [address], [facility] [employer] [facility] [employer] [facility] 04/04/2025 09:19:04 5 Wound Care-Podiatry completed Celia Li RN [facility] [employer] [facility] 03/23/2025 13:10:00 5 Wound Care-Podiatry completed Celia Li RN [facility] [employer] [facility] 03/16/2025 11:32:52 5 Wound Care-Podiatry completed Celia Li RN [facility] [employer] [facility] 03/09/2025 10:07:15 5 Wound Care-Podiatry completed Celia Li RN [facility] [employer] [facility] 03/02/2025 11:48:48 5 Wound Care-Podiatry completed Celia Li RN [facility] [employer] [facility] 02/23/2025 12:01:59 5 Wound Care-Podiatry completed Celia Li RN [facility] [employer] [facility] 02/16/2025 11:40:09 5 Wound Care-Podiatry completed Justice Dave RN [facility] [employer] [facility] 02/09/2025 10:23:16 5 Wound Care-Podiatry completed Thad Kenny DPM [address], [address], [place], [address], [facility] [employer] [facility] 02/02/2025 13:37:03 5 Wound Care-Podiatry completed Celia Li RN [facility] [employer] [facility] 01/26/2025 15:49:01 5 Wound Care-Podiatry completed Thad Kenny DPM [address], [address], [place], [address], [facility] [employer] [facility] 01/19/2025 13:31:19 5 Wound Care-Podiatry completed Justice Dave RN [facility] [employer] [facility] 01/17/2025 09:01:39 5 Wound Care-Podiatry completed Celia Li RN [facility] [employer] [facility] 01/05/2025 17:17:17 2 Hernia Surgery completed Not Available [facility] 09/18 07:26:20 Vasectomy completed Not Available [facility] 0 09/18/2022 07:26:20 Imaging Results None recorded. Procedure Notes None recorded. Medical Equipment None Reported. Allergies Allergen ID Allergen Name Allergen Category Reaction Reaction Severity Criticality Documentation Date Start Date Code Code System Note Provider Name and Address Organization Details Recorded Time 45412 peanut allergeni c extract food,medi cation itching mild Not available 09/18/2022 80437 8 RxNorm Not Available [facility] 07:34:13 33203 prednison e medicatio n other Not available high 12/28/20242019 8640 RxNorm Hyper glyce hipolito Blood sugar s shoot up to above 800 Tanya Moran RN null, [facility] [place] [facility] 17:32:35 80061 Betadine medicatio n other severe high 04/12/20252024 29549 0 RxNorm blist ers, sores Tanya Moran RN null, [facility] [place] [facility] 17:11:56 77556 prednisol one medicatio n Not available Not available Not available 06/03/20252024 8638 RxNorm Not Available more - External Data Service - prod 09:05:32 10405 iodine medicatio n Not available Not available Not available 06/03/20252024 5933 RxNorm sever e unrec ogniz ed react ion (text : Conta ct Peterson titis , code: 88823 004) (from [facility]) Not Available more - External Data [...] provider 11/25 completed [facility]: [phone] 11-07 Not Available Not Available [...] Recorded Body height Body temperature Respiratory rate Oxygen saturation Heart rate Systolic And Diastolic Provider Name and Address Organization Details Last Updated DateTime 5 175.26 cm 99.2 [degF] 18 /min 97 % 94 /min 142/87 mm[Hg] Justice Dave RN [place] [facility] [employer] 5 12:31:05 Social History Question Answer Notes LastModified by Organizat ion Details LastModified Time Tobacco Smoking Status Former Smoker quit in 2017 Not Available [employer] 09/18/2022 07:25:57 Do You Have An Advance Directive? No MIGRATION.53701 58894 Information not available 09/18/2022 Do You Wear A Helmet When Biking? No MIGRATION.24176 74632 Information not available 09/18/2022 What Is Your Level Of Caffeine Consumption? Moderate MIGRATION.31198 14286 Information not available 09/18/2022 In The 14 Days Before Symptom Onset, Have You Had Close Contact [facility] While That Case Was Ill? No MIGRATION.85892 88547 Information not available 09/18/2022 In The 14 Days Before Symptom Onset, Have You Had Close Contact With A Person Who Is Under Investigation For COVID-19 While That Person Was Ill? No MIGRATION.42109 23518 Information not available 09/18/2022 What Type Of Diet Are You Following? REGULAR MIGRATION.00293 06367 Information not available 09/18/2022 What Is The Highest Grade Or Level Of School You Have Completed Or The Highest Degree You Have Received? GW80118-7 MIGRATION.73009 69321 Information not available 09/18/2022 Have There Been Any Changes To Your Family Or Social Situation? No MIGRATION.99164 65088 Information not available 09/18/2022 When Did You Quit Smoking? 1-5yearssincelastc igarette MIGRATION.46892 45205 Information not available 09/18/2022 Are There Any Guns Present In Your Home? No MIGRATION.31963 23335 Information not available 09/18/2022 Do You Use Insect Repellent Routinely? No MIGRATION.55140 74402 Information not available 09/18/2022 Where Do You Live? [facility] MIGRATION.11444 57891 Information not available 09/18/2022 Do You Have A Medical Power Of Biometrics Analyst? No MIGRATION.39860 91101 Information not available 09/18/2022 Have You Ever Been Counseled For Unhealthy Alcohol Use? No MIGRATION.89984 39256 Information not available 09/18/2022 Do You Have Any Pets? Yes MIGRATION.67426 14919 Information not available 09/18/2022 What Is Your Relationship Status? MIGRATION.53963 21614 Information not available 09/18/2022 Do You Use Your Seat Belt Or Car Seat Routinely? Yes MIGRATION.11976 84917 Information not available 09/18/2022 Do You Have Smoke And Carbon Monoxide Detectors In Your Home? Yes MIGRATION.71158 92805 Information not available 09/18/2022 Are You Passively Exposed To Smoke? No MIGRATION.82048 38789 Information not available 09/18/2022 Are There Any Smokers In Your House? No MIGRATION.62933 42784 Information not available 09/18/2022 Do You Participate In Social Media? No MIGRATION.62769 95665 Information not available 09/18/2022 Do You Use Sunscreen Routinely? Yes MIGRATION.61318 90169 Information not available 09/18/2022 Has Tobacco Cessation Counseling Been Provided? No MIGRATION.00635 97961 Information not available 09/18/2022 Have You Recently Traveled Abroad? No MIGRATION.68887 82577 Information not available 09/18/2022 Are You Currently In School? No MIGRATION.55378 45911 Information not available 09/18/2022 Do You Have Any Dietary Restrictions? No MIGRATION.67616 21886 Information not available 09/18/2022 Sex: Male Functional Status Question Answer Note LastModified by Organizat ion Details LastModified Time Do you or have you ever used any other forms of tobacco or nicotine? No MIGRATION.14139683 26 Information not available 09/18/2022 What is your level of alcohol consumption? None MIGRATION.30800643 26 Information not available 09/18/2022 What is your exercise level? Occasional MIGRATION.74213296 26 Information not available 09/18/2022 Mental Status None recorded. Family History Relationship Description Onset Age of this Age Resolved Age Notes LastModified by Organization Details LastModified Time Sister Hypertensive disorder MIGRATION.251 [id number] Not available 09/18/2022 07:26:21 Maternal Grandfather Malignant neoplasm of prostate MIGRATION.287 3680360 Not available 09/18/2022 07:26:21 Mother Malignant neoplasm of breast MIGRATION.489 1685997 Not available 09/18/2022 07:26:21 Medical History Condition [...] HAVE YOU BEEN HOSPITALIZED OR SEEN IN [facility] IN THE PAST YEAR ? Y [...] Recorded Time HPV9 09/10/2021 completed Not Available [facility] 09/18/2022 07:34:06 Influenza, split virus, quadrivalent, PF 05/16/2020 completed Not Available [facility] 07:34:07 HPV9 05/16/2020 completed Not Available [facility] 09/18/2022 07:34:07 Tdap 09/16/2019 completed Not Available [facility] 09/18/2022 07:34:07 HPV9 12/18/2022 completed Karon Arredondo RN null, [facility] [employer] 12/18/2022 12:40:48 Influenza, split virus, trivalent, PF 07/01/2024 completed DARRICK May, ID [employer] [facility] [employer] 07/02/2024 10:32:24 Past Encounters Encounter ID Performer Location Encounter Start Date Encounter Closed Date Diagnosis/Indication Diagnosis SNOMED-CT Code Diagnosis ICD10 Code Diagnosis IMO Codes Diagnosis Note [id number] Thad Kenny DPM [facility] [address] [place] [address] 03/30/2025 14:25:49 04/04/2025 09:30:28 Open wound of lower limb 29640271 S81.801D S81.802D 0997083568 New compressio n dressings with right Profore is applied to lower extremitie sTubigrip applied left lower legVenous ultrasound reviewed negative for DVTfollow- up 1 week Peripheral venous insufficiency 94664499 I87.2 71811 continue chronic compressio nfollow-up with vascular Insect bit e of lower limb 660294862 S80.869D W57.XXXD 86084013 bilateral lower legsPET and house has been treated Open wound of toe 936282 002 S91.109A 47164266 left toesdaily dressingsm onitor for signs of infection at present seek medical attention immediatel y [id number] Ray Moreno MD [facility] [address] [address] 04/12/2025 16:59:42 04/13/2025 09:39:09 Transition of care 1489552839 105 Z75.8 Post-disch arge follow-up 150217904 Z09 086749 Eczema of lower limb 788 078889 L30.9 35526390 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 176559546 E09.9 T38.0X5D 8513739054 Morbid obesity 452267303 E66.01 26462 Abnormal gait 63404068 R 26.89 26630576 [id number] Thad Kenny DPM [facility] [address] [place] [address] 04/13/2025 14:10:54 04/14/2025 17:53:50 Open wound of lower limb 85322956 S81.801D S81.802D 2806811104 New compressio n dressings with right Profore is applied to lower extremitie sTubigrip applied left lower legVenous ultrasound reviewed negative for DVTfollow- up 1 week Peripheral venous insufficiency 86765311 I87.2 42236 continue chronic compressio nfollow-up with vascular Insect bit e of lower limb 785329065 S80.869D W57.XXXD 06143949 bilateral lower legsPET and house has been treated Ulcer of t oe of left foot 3206304909 3495868 L97.522 09952432 multiple- toesdaily dressingsm onitor for signs of infectionf ollow-up on week [id number] Thad Kenny DPM [facility] [address] [place] [address] 04/20/2025 12:05:06 04/21/2025 15:47:45 Open wound of lower limb 45436375 S81.801D S81.802D 8053036415 New compressio n dressings with bilateral Profore is applied to lower extremitie sTubigrip applied left lower legVenous ultrasound reviewed negative for DVTfollow- up 1 week Ulcer of t oe of left foot 3687729396 4040557 L97.522 61017116 multiple- toesdaily dressingsm onitor for signs of infectionf ollow-up on week Peripheral venous insufficiency 26439584 I87.2 82288 continue chronic compressio nfollow-up with vascular [id number] Thad Kenny DPM [facility] [address] [place] [address] 04/27/2025 11:55:42 04/27/2025 14:24:22 Open wound of lower limb 03119640 S81.801D S81.802D [id number] resolved Ulcer of t oe of left foot 1943053674 9241078 L97.522 48105817 multiple- toesdaily dressingsm onitor for signs of infectionf ollow-up on week Peripheral venous insufficiency 94800257 I87.2 65902 continue chronic compressio nfollow-up with vascular Health Concerns Section Related Observation LastModified by Organization Detai ls LastModified Time None Recorded Concern Status LastModified by Organization Details LastModified Time None Recorded Payers Encounter Date Sequence Insurance Name Policy Number Policy Leonard Covered Member ID Leonard Member ID Guarantor Name 04/27/2025 1 [facility] [id number] Zheng Carrizales [id number] Zheng Carrizales Notes Date Note Type Note Provider Name and Address Organization Details Recorded Time 04/27/2025 text/html . Patient is a 40-year-old male who returns the office for follow-up on venous insufficiency and wounds of his toes. Patient overall is doing well he is healed the lower extremity wound. Patient still has some open wounds of the toes which are non-infected with mild slough. Patient denies any new complaints. Thad Kenny DPM [address] [facility] [address], [place], [address], [facility] 04/27/2025 14:00:22
--- OUTSIDE RECORDS SUMMARY | 2025-06-15 01:23 | XMS_ITS | Encounter Summary ---
Author Organization [facility] Address [address] [place] [address] Care Team Providers Care Cloth Spreader Screen Printing Name Role Phone Ray Moreno MD Primary Care Provider Encounter Details Date Type Department Care Team (Late st Contact Info) Description 08/18/2019 Lab Requisition [facility] [address] [place] [address] Tenzin Berry MD [address] [id number] Social History Tobacco Use Types Packs/Day Years Used Date Smoking Tobacco: Never Assessed Sex and Gender Information Value Date Recorded Sex Assigned at Male 02/14/2024 3:53 PM CDT Legal Sex Male 3:47 PM FISH TENDER Gender Identity Male 02/14/2024 3:53 PM CDT Sexual Orientation Straight 02/14/2024 3: 53 PM CDT documented as of this encounter Plan of Treatment Not on file documented as of this encounter Procedures Procedure Name Priority Date/Time Associated Diagnosis Comments FLOW CYTOMETRY BONE MARROW Routine 08/18/2019 11:00 AM FISH TENDER documented in this encounter Results * FLOW CYTOMETRY BONE MARROW (08/18/2019 11:00 AM FISH TENDER) Case Report Flow Cytometry Case: [id number] Authorizing Provider: Tenzin Berry MD Collected: 08/18/2019 11:00 AM Ordering Location: [facility] Care Pathology Lab Received: 08/18/2019 03:49 PM Pathologist: Glenys Duffy MD Specimen: Bone Marrow 08/19/2019 11:09 AM [facility] Final Diagnosis Bone marrow, flow cytometric immunophenotypic analysis: - No evidence of non-Hodgkin lymphoma or high-grade myeloid neoplasm. - See interpretation. 08/19/2019 11:09 AM [facility] at [address] [employer] Flow Cytometry Interpretation The bone marrow specimen [...] flow cytometry specimen is reviewed for quality controller purposes. The bone marrow aspirate specimen shows no evidence of involvement by non-Hodgkin lymphoma or a high-grade myeloid neoplasm. Correlation with clinical findings, concurrent bone marrow core biopsy and relevant cytogenetic/molecu lar studies is required. 08/19/2019 11:09 AM [facility] Flow Cytometry Results Differential Result Comment Flow Cell Count /uL 31,200 Total Viability % 100.0 Lymphocytes % 13 Dim CD45 Region % 2 Monocytes % 8 Granulocytes % 76 08/19/2019 11:09 AM [facility] Reason for test 0 11:09 AM [facility] Client Specimen ID # [id number] 08/19/2019 11:09 AM [facility] Number of markers 10 were performed. A-2 Flow CD10 A-3 Flow CD13 A-5 Flow CD20 A-1 Flow CD5 A-4 Flow CD19 A-6 Flow CD33 A-7 Flow CD34 A-8 Flow CD45 A-9 Ihlen+CD19+ A-10 Lambda+CD19+ 08/19/2019 11:09 AM [facility] Disclaimer Test performed at [facility], [address] [place] [address], [id number]. *The established laboratory minimum viability is 70%. [...] high complexity clinical testing. 08/19/2019 11:09 AM FISH TENDER [facility] PATH[facility] Embedded Images 0 11:09 AM FISH TENDER [facility] PATH[facility] LAB Pathology/Cytolo gy BONE MARROW SPECIMEN / Unknown 08/18/2019 11:00 AM FISH TENDER 08/18/2019 3:49 PM FISH TENDER Tenzin Berry MD LAB - PATHOLOGY/CYTOLOGY ORDER DARCY Final Result [facility] [address] [phone] documented in this encounter Visit Diagnoses Not on filedocumented in this encounter Care Teams Cloth Spreader Screen Printing Relationship Specialty Start Date End Date Ray Moreno MD [address] [place] [phone] PCP - General Family Medicine 05/28/23 documented as of this encounter
--- OUTSIDE RECORDS SUMMARY | 2025-06-15 01:23 | XMS_ITS | Continuity of Care Document ---
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 Auger Press Operator variances may occur. Despite proofreading, typographical errors may occur. Occasional wrong-word or 'ruxue-v-sfwi' substitutions may have occurred due to the inherent limitations of voice recording. Read the chart carefully and recognize, using context, where substitutions have occurred. [email or web address] Not available 04/14/2025 09:02:06 Plan of Treatment Reminders Order Date Submit [...] XR, foot No observ ation record ed. [email or web address], [place], [address], 04/12/2025 17:16:09 04/06/20 25 04/06/2025 US, renal No observ ation record ed. [address], [place], [address], 04/12/2025 17:16:09 Result Notes None recorded. Problems Name Problem SNOMED Code Status Onset Date Resolution Date Notes Provider Name and Address Organization Details Recorded Time Morbid obesity 574163237 Active 2019 Ray Moreno MD [address], [facility] [address], [place], [address] , [employer] 5 17:50:52 Ex-smoker 1884761 Active 2019 Not Available [facility] 3 07:29:44 History of sepsis 9243116432266 00 Active 2019 Not Available [facility] 3 07:29:40 Acute kidney injury 35821465 Active 2019 Not Available [facility] 3 07:29:40 Persistent insomnia 009294231 Active 2019 Not Available [facility] 3 07:29:40 Steatotic liver disease 844252842 Active 2019 Not Available [facility] 3 07:29:40 Anemia 201969163 Active 2019 Ray Moreno MD [address] [facility], [facility] [address], [place], [address] , [employer] 5 17:04:16 Peripheral edema 728904746 Active 2019 Not Available [facility] 3 07:29:41 Cellulitis of lower limb 469940369 Active 2019 Not Available [facility] 3 07:29:43 Candidiasi s of mouth 12821702 Active 2019 Not Available [facility] 3 07:29:44 Umbilical hernia 445929389 Active 2019 Not Available [facility] 3 07:29:42 Uncontroll ed type 2 diabetes mellitus 303310486 Active 2019 Not Available [facility] 3 07:29:43 Microscopi c hematuria 885856272 Active 2019 Not Available [facility] 3 07:29:41 Vitamin D deficiency 22456995 Active 2019 Not Available [facility] 3 07:29:42 Autoimmune hemolytic anemia 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 Active 2019 Not Available [facility] 3 07:29:43 History of atrial fibrillati on 469231153 Active 2019 Not Available [facility] 3 07:29:42 Type 2 diabetes mellitus without complicati on 384497277 Active 2019 Not Available [facility] 3 07:29:42 History of diabetes mellitus 172268228 Active 2019 Not Available [facility] 3 07:29:40 Increased frequency of urination 176744813 Active 2021 Not Available [facility] 3 07:29:40 Kole hematuria 315204119 Active 2021 Not Available [facility] 3 07:29:41 Blood in urine 65090563 Active 2021 Not Available [facility] 3 07:29:42 Lower urinary tract symptoms due to benign prostatic hypertroph y 1424618667568 1 Active 2021 Not Available [facility] 3 07:29:41 Disorder of prostate 36104845 Active 2021 Not Available [facility] 3 07:29:42 Active or passive immunizati on Active 2021 Not Available [facility] 3 07:29:40 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 Not Available [facility] 3 07:29:41 Adult health examinatio n Active 2021 Not Available [facility] 3 07:29:41 Urethral stricture 01384497 Active 2021 Not Available [facility] 3 07:29:44 Pain in right sacroiliac joint 4237646766341 9107 Active 2021 Not Available [facility] 3 07:29:40 Hypothyroi dism 06150946 Active 2021 Not Available [facility] 3 07:29:43 Swelling of bilateral lower limbs 330346312 Active 2021 Not Available [facility] 3 07:29:44 Acute urinary tract infection 317690402 Active 2021 Not Available [facility] 3 07:29:43 Bronchitis 77704025 Active 2021 Not Available [facility] 3 07:29:42 Cough 38915654 Active 2021 Not Available [facility] 3 07:29:43 Nasal congestion 18655192 Active 2022 Ray Moreno MD [address], [address], [place], [address] , [place] [facility] 3 16:31:40 Seasonal allergic rhinitis 012635294 Active 2022 Ray Moreno MD [address], [address], [place], [address] , [place] [facility] 3 17:38:01 Lumbar spondylosi s 336378706 Active 2022 Ray Moreno MD [address], [address], [place], [address] , [place] [facility] 3 10:23:15 Sleep apnea 13533057 Active 2022 Ray Moreno MD [address], [address], [place], [address] , [place] [facility] 3 10:26:16 Hypertensi ve disorder 53020423 Active 2022 Ray Moreno MD [address], [address], [place], [address] , [place] [facility] 3 10:30:36 Pancreatit is 42089853 Active 2022 Ray Moreno MD [address], [address], [place], [address] , [place] [facility] 3 14:14:30 Liver enzymes level above reference range 630814195 Active 2022 Ray Moreno MD [address], [address], [place], [address] , [place] [facility] 3 14:26:53 Winnie palsy of left side of face 0968866775812 9103 Active 2023 Ray Moreno MD [address], [address], [place], [address] , [place] [facility] 4 12:52:16 Weakness of left facial muscle 758855911 Active 2023 Ray Moreno MD [address], [address], [place], [address] , [place] [facility] 4 12:54:06 Fatigue 51244594 Active 2023 Ray Moreno MD [address], [address], [place], [address] , [place] [facility] 4 14:59:09 COVID-19 961740317 Active 2024 Ray Moreno MD [address], [address], [place], [address] , [place] [facility] 5 09:41:43 Fever with chills 256908997 Active 2024 Ray Moreno MD [address], [address], [place], [address] , [place] [facility] 5 09:42:06 Open wound of left lower leg 5555596216849 9106 Active 2024 Ray Moreno MD [address], [address], [place], [address] , [place] [facility] 5 17:36:38 Open wound of lower limb 08468555 Active 2024 Ray Moreno MD [address], [address], [place], [address] , [place] [facility] 5 17:37:18 Ulcer of lower extremity 17894559 Active 2024 Ray Moreno MD [address], [address], [place], [address] , [employer] 17:39:05 Swelling of lower leg 785566404 Active 2024 Ray Moreno MD [address], [address], [place], [address] , [employer] 5 17:41:05 Open wound of lower limb 26261535 Active 2024 Thad Kenny DPM [address], [address], [place], [address] , [employer] 14:17:31 Lymphedema of limb 052425617 Active 2024 Thad Kenny DPM [address], [address], [place], [address] , [employer] 17:38:13 Peripheral venous insufficie ncy 23699155 Active 2024 Thad Kenny DPM [address], [address], [place], [address] , [employer] 15:36:51 Pruritic rash 20526577 Active 2024 Thad Kenny DPM [address], [address], [place], [address] , [employer] 5 12:15:14 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 sm 47677598 Active 2024 Ray Moreno MD [address], [address], [place], [address] , [employer] 16:31:18 Primary hypothyroi dism 05545116 Active 2024 Ray Moreno MD [address], [address], [place], [address] , [employer] [facility] [employer] 5 17:02:26 Stasis dermatitis 07962325 Active 2024 Ray Moreno MD [address] [facility], [address], [place], [address] , [employer] [facility] 5 17:17:05 Insect bite of lower limb 792180380 Active 2024 Thad Kenny DPM [address] [facility], [address], [place], [address] , [employer] [facility] 5 14:16:52 Open wound of toe 432599013 Active 2024 Thad Kenny DPM [address] [facility], [address], [place], [address] , [employer] [facility] [employer] 5 09:20:59 Eczema of lower limb 742342232 Active 2024 Ray Moreno MD [address] [employer], [address] [address], [place], [address] , [employer] [facility] 5 17:16:58 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 667753115 Active 2024 Ray Moreno MD [address] [facility], [address] [address], [place], [address] , [employer] [facility] [employer] 5 17:19:16 Abnormal gait 71718659 Active 2024 Ray Moreno MD [address], [address] [address], [place], [address] , [employer] [facility] [employer] [facility] 5 17:40:46 Ulcer of toe of left foot Active 2024 Thad Kenny DPM [address] [facility], [address] [address], [place], [address] , [employer] [facility] 5 09:02:30 Notes:Ray Moreno MD [phone] [facility] home sleep study 01/02/23 AHI = [...] 5 Wound Care-Podiatry completed Celia Li RN [facility] [employer] [facility] 05/25/2025 12:24:51 5 Wound Care-Podiatry completed Celia Li RN [facility] [employer] [facility] 05/11/2025 12:39:44 5 Wound Care-Podiatry completed Thad Kenny DPM [address], [place], [address], [facility] [employer] [facility] [employer] [facility] 04/27/2025 13:57:28 5 Wound Care-Podiatry completed Thad Kenyn DPM [address], [address], [place], [address], [facility] [employer] [facility] 04/21/2025 15:27:03 5 Wound Care-Podiatry completed Celia Li RN [facility] [employer] [facility] 04/13/2025 15:26:01 5 Transitional_C are_Management completed Tanya Moran RN [facility] [employer] [facility] 04/12/2025 17:03:42 5 Wound Care-Podiatry completed Thad Kenny DPM [address], [address], [place], [address], [facility] [employer] [facility] [employer] [facility] 04/04/2025 09:19:04 5 Wound Care-Podiatry completed Celia Li RN [facility] [employer] [facility] 03/23/2025 13:10:00 5 Wound Care-Podiatry completed Celia Li RN [facility] [employer] [facility] 03/16/2025 11:32:52 5 Wound Care-Podiatry completed Celia Li RN [facility] [employer] [facility] 03/09/2025 10:07:15 5 Wound Care-Podiatry completed Celia Li RN [facility] [employer] [facility] 03/02/2025 11:48:48 5 Wound Care-Podiatry completed Celia Li RN [facility] [employer] [facility] 02/23/2025 12:01:59 5 Wound Care-Podiatry completed Celia Li RN [facility] [employer] [facility] 02/16/2025 11:40:09 5 Wound Care-Podiatry completed Justice Dave RN [facility] [employer] [facility] 02/09/2025 10:23:16 5 Wound Care-Podiatry completed Thad Kenny DPM [address], [place], [address], [facility] [employer] [facility] 02/02/2025 13:37:03 5 Wound Care-Podiatry completed Celia Li RN [facility] [employer] [facility] 01/26/2025 15:49:01 5 Wound Care-Podiatry completed Thad Kenny DPM [address], [place], [address], [facility] [employer] [facility] 01/19/2025 13:31:19 5 Wound Care-Podiatry completed Justice Dave RN [facility] [employer] [facility] 01/17/2025 09:01:39 5 Wound Care-Podiatry completed Celia Li RN [facility] [employer] [facility] 01/05/2025 17:17:17 2 Hernia Surgery completed Not Available [facility] 09/18 07:26:20 Vasectomy completed Not Available [facility] 0 09/18/2022 07:26:20 Imaging Results None recorded. Procedure Notes None recorded. Medical Equipment None Reported. Allergies Allergen ID Allergen Name Allergen Category Reaction Reaction Severity Criticality Documentation Date Start Date Code Code System Note Provider Name and Address Organization Details Recorded Time 30170 peanut allergeni c extract food,medi cation itching mild Not available 09/18/2022 31520 8 RxNorm Not Available [facility] 07:34:13 22649 prednison e medicatio n other Not available high 12/28/20242019 8640 RxNorm Hyper glyce hipolito Blood sugar s shoot up to above 800 Tanya Moran RN null, [facility] [employer] [facility] 17:32:35 52109 Betadine medicatio n other severe high 04/12/20252024 81956 0 RxNorm blist ers, sores Tanya Moran RN null, [facility] [employer] [facility] 17:11:56 32799 prednisol one medicatio n Not available Not available Not available 06/03/20252024 8638 RxNorm Not Available more - External Data Service - prod 09:05:32 62452 iodine medicatio n Not available Not available Not available 06/03/20252024 5933 RxNorm sever e unrec ogniz ed react ion (text : Conta ct Ostrander titis , code: 18660 004) (from [facility]) Not Available more - External Data [...] administ ered by the provider 11/25 completed [facility]: 0003-049 11-07 Not Available Not Available Not [...] Not Available Vitals Date Recorded Body height Heart rate Oxygen saturation Body temperature Respiratory rate Systolic And Diastolic Provider Name and Address Organization Details Last Updated DateTime 5 175.26 cm 67 /min 96 % 98.7 [degF] 18 /min 113/82 mm[Hg] Celia Li RN [place] [facility] 5 14:23:17 Social History Question Answer Notes LastModified by Organizat ion Details LastModified Time Tobacco Smoking Status Former Smoker quit in 2017 Not Available [facility] 09/18/2022 07:25:57 Do You Have An Advance Directive? No MIGRATION.07800 95630 Information not available 09/18/2022 Do You Wear A Helmet When Biking? No MIGRATION.16376 18867 Information not available 09/18/2022 What Is Your Level Of Caffeine Consumption? Moderate MIGRATION.63750 50229 Information not available 09/18/2022 In The 14 Days Before Symptom Onset, Have You Had Close Contact [facility] While That Case Was Ill? No MIGRATION.62443 41120 Information not available 09/18/2022 In The 14 Days Before Symptom Onset, Have You Had Close Contact With A Person Who Is Under Investigation For COVID-19 While That Person Was Ill? No MIGRATION.14968 47487 Information not available 09/18/2022 What Type Of Diet Are You Following? REGULAR MIGRATION.12173 23113 Information not available 09/18/2022 What Is The Highest Grade Or Level Of School You Have Completed Or The Highest Degree You Have Received? [id number] MIGRATION.12159 37910 Information not available 09/18/2022 Have There Been Any Changes To Your Family Or Social Situation? No MIGRATION.35510 94931 Information not available 09/18/2022 When Did You Quit Smoking? 1-5yearssincelastc igarette MIGRATION.27753 84422 Information not available 09/18/2022 Are There Any Guns Present In Your Home? No MIGRATION.80693 99605 Information not available 09/18/2022 Do You Use Insect Repellent Routinely? No MIGRATION.26101 81310 Information not available 09/18/2022 Where Do You Live? [facility] MIGRATION.09836 05431 Information not available 09/18/2022 Do You Have A Medical Power Of Nurse Intern? No MIGRATION.72868 51254 Information not available 09/18/2022 Have You Ever Been Counseled For Unhealthy Alcohol Use? No MIGRATION.95437 06783 Information not available 09/18/2022 Do You Have Any Pets? Yes MIGRATION.30167 92143 Information not available 09/18/2022 What Is Your Relationship Status? MIGRATION.64522 38429 Information not available 09/18/2022 Do You Use Your Seat Belt Or Car Seat Routinely? Yes MIGRATION.21642 67498 Information not available 09/18/2022 Do You Have Smoke And Carbon Monoxide Detectors In Your Home? Yes MIGRATION.44098 47098 Information not available 09/18/2022 Are You Passively Exposed To Smoke? No MIGRATION.78725 30359 Information not available 09/18/2022 Are There Any Smokers In Your House? No MIGRATION.91155 11292 Information not available 09/18/2022 Do You Participate In Social Media? No MIGRATION.66055 86198 Information not available 09/18/2022 Do You Use Sunscreen Routinely? Yes MIGRATION.21255 11877 Information not available 09/18/2022 Has Tobacco Cessation Counseling Been Provided? No MIGRATION.20960 11015 Information not available 09/18/2022 Have You Recently Traveled Abroad? No MIGRATION.97099 62978 Information not available 09/18/2022 Are You Currently In School? No MIGRATION.82840 81132 Information not available 09/18/2022 Do You Have Any Dietary Restrictions? No MIGRATION.77803 42851 Information not available 09/18/2022 Sex: Male Functional Status Question Answer Note LastModified by Organizat ion Details LastModified Time Do you or have you ever used any other forms of tobacco or nicotine? No MIGRATION.61641934 26 Information not available 09/18/2022 What is your level of alcohol consumption? None MIGRATION.43391022 26 Information not available 09/18/2022 What is your exercise level? Occasional MIGRATION.30832962 26 Information not available 09/18/2022 Mental Status None recorded. Family History Relationship Description Onset Age of this Age Resolved Age Notes LastModified by Organization Details LastModified Time Sister Hypertensive disorder MIGRATION.605 [id number] Not available 09/18/2022 07:26:21 Maternal Grandfather Malignant neoplasm of prostate MIGRATION.309 2971078 Not available 09/18/2022 07:26:21 Mother Malignant neoplasm of breast MIGRATION.180 0251059 Not available 09/18/2022 07:26:21 Medical History Condition [...] HAVE YOU BEEN HOSPITALIZED OR SEEN IN [facility] ER IN THE PAST YEAR ? Y [...] Recorded Time HPV9 09/10/2021 completed Not Available [facility] 09/18/2022 07:34:06 Influenza, split virus, quadrivalent, PF 05/16/2020 completed Not Available [facility] 07:34:07 HPV9 05/16/2020 completed Not Available [facility] 09/18/2022 07:34:07 Tdap 09/16/2019 completed Not Available [facility] 09/18/2022 07:34:07 HPV9 12/18/2022 completed Karon Arredondo RN null, [facility] [employer] [facility] [employer] 12/18/2022 12:40:48 Influenza, split virus, trivalent, PF 07/01/2024 completed DARRICK May, [facility] [employer] [facility] [employer] 07/02/2024 10:32:24 Past Encounters Encounter ID Performer Location Encounter Start Date Encounter Closed Date Diagnosis/Indication Diagnosis SNOMED-CT Code Diagnosis ICD10 Code Diagnosis IMO Codes Diagnosis Note [id number] Thad Kenny DPM [facility] [address] [place] [address] 03/16/2025 11:01:43 03/16/2025 17:01:40 Open wound of lower limb 22633334 S81.801D S81.802D 1818289169 two wounds- right lower legNew compressio n dressings with right Profore is applied to lower extremitie sTubigrip applied left lower legVenous ultrasound reviewed negative for DVTfollow- up 1 week Peripheral venous insufficiency 06210123 I87.2 41377 continue chronic compressio nfollow-up with vascular Pruritic rash 28969281 L 28.2 835350 bilateral feet- resolving [id number] Thad Kenny DPM [facility] [address] [place] [address] 03/23/2025 12:31:42 03/23/2025 17:19:50 Open wound of lower limb 15642974 S81.801D S81.802D 4665404334 two wounds- right lower legNew compressio n dressings with right Profore is applied to lower extremitie sTubigrip applied left lower legVenous ultrasound reviewed negative for DVTfollow- up 1 week Peripheral venous insufficiency 67968193 I87.2 64206 continue chronic compressio nfollow-up with vascular Insect bit e of lower limb 953312379 S80.869D W57.XXXD 30080855 bilateral lower legsPET and house has been treated [id number] Thad Kenny DPM [facility] [address] [place] [address] 03/30/2025 14:25:49 04/04/2025 09:30:28 Open wound of lower limb 10526813 S81.801D S81.802D 1566626372 New compressio n dressings with right Profore is applied to lower extremitie sTubigrip applied left lower legVenous ultrasound reviewed negative for DVTfollow- up 1 week Peripheral venous insufficiency 05433996 I87.2 88445 continue chronic compressio nfollow-up with vascular Insect bit e of lower limb 621771451 S80.869D W57.XXXD [id number] bilateral lower legsPET and house has been treated Open wound of toe 520948 002 S91.109A 11325636 left toesdaily dressingsm onitor for signs of infection at present seek medical attention immediatel y [id number] Ray Moreno MD [facility] [address] [address] 04/12/2025 16:59:42 04/13/2025 09:39:09 Transition of care 5739785049 105 Z75.8 Post-disch arge follow-up 369451147 Z09 849192 Eczema of lower limb 788 440061 L30.9 00001679 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 085592331 E09.9 T38.0X5D 0461818001 Morbid obesity 010784970 E66.01 51165 Abnormal gait 57014067 R 26.89 [id number] Thad Kenny DPM [facility] [address] [place] [address] 04/13/2025 14:10:54 04/14/2025 17:53:50 Open wound of lower limb 26295574 S81.801D S81.802D 1248407146 New compressio n dressings with right Profore is applied to lower extremitie sTubigrip applied left lower legVenous ultrasound reviewed negative for DVTfollow- up 1 week Peripheral venous insufficiency 09280998 I87.2 65010 continue chronic compressio nfollow-up with vascular Insect bit e of lower limb 344382186 S80.869D W57.XXXD [id number] bilateral lower legsPET and house has been treated Ulcer of t oe of left foot 7549884143 0929835 L97.522 86287774 multiple- toesdaily dressingsm onitor for signs of infectionf ollow-up on week Health Concerns Section Related Observation LastModified by Organization Detai ls LastModified Time None Recorded Concern Status LastModified by Organization Details LastModified Time None Recorded Payers Encounter Date Sequence Insurance Name Policy Number Policy Leonard Covered Member ID Leonard Member ID Guarantor Name 04/13/2025 1 [employer]) [id number] Zheng Carrizales [id number] Zheng Carrizales Notes Date Note Type Note Provider Name and Address Organization Details Recorded Time 04/13/2025 text/html ROS as noted in the HPI . Patient is a 40-year-old male who returns the office for follow-up on venous wounds of the lower leg. Patient continues have small eruptions that are healing. Patient had a biopsy from an outside clinic which he states they just showed inflammatory tissue and was not recommended to do anything else. Patient has 2 areas of biopsy with sutures intact. Patient denies any fever, chills, nausea or vomiting. Thad Kenny DPM [address] [facility], [facility] [address], [place], [address], [facility] 04/14/2025 09:04:03
--- OUTSIDE RECORDS SUMMARY | 2025-06-15 01:23 | XMS_ITS | Continuity of Care Document ---
Author Organization [place] [facility] [employer] [facility], [facility] Address [address] [place] [address] Care Team Providers Care Tool Filer Name Role Phone RAY MORENO Primary Care Provider Assessment Encounter Date Assessment Date Assessment LastModified by Organization Details LastModified Time 03/30/2025 03/30/2025 This note is dictated and transcribed by [employer]. Yield Clerk variances may occur. Despite proofreading, typographical errors may occur. Occasional wrong-word or 'kqeny-c-lwqk' substitutions may have occurred due to the inherent limitations of voice recording. Read the chart carefully and recognize, using context, where substitutions have occurred. [email or web address] Not available 04/04/2025 09:20:42 Plan of Treatment Reminders Order Date Submit [...] XR, foot No observ ation record ed. [address], [place], [address], 04/12/2025 17:16:09 04/06/20 25 04/06/2025 US, renal No observ ation record ed. [email or web address], [place], [address], 04/12/2025 17:16:09 Result Notes None recorded. Problems Name Problem SNOMED Code Status Onset Date Resolution Date Notes Provider Name and Address Organization Details Recorded Time Morbid obesity 849392782 Active 2019 Ray Moreno MD [address], [facility] [address], [place], [address] , [facility] 5 17:50:52 Ex-smoker 4422492 Active 2019 Not Available [facility] 3 07:29:44 History of sepsis 2746404282366 00 Active 2019 Not Available [facility] 3 07:29:40 Acute kidney injury 22694272 Active 2019 Not Available [facility] 3 07:29:40 Persistent insomnia 039884303 Active 2019 Not Available [facility] 3 07:29:40 Steatotic liver disease 976259088 Active 2019 Not Available [facility] 3 07:29:40 Anemia 983954033 Active 2019 Ray Moreno MD [address] [facility], [facility] [address], [place], [address] , [facility] 5 17:04:16 Peripheral edema 256449993 Active 2019 Not Available [facility] 3 07:29:41 Cellulitis of lower limb 756494412 Active 2019 Not Available [facility] 3 07:29:43 Candidiasi s of mouth 46356511 Active 2019 Not Available [facility] 3 07:29:44 Umbilical hernia 114818172 Active 2019 Not Available [facility] 3 07:29:42 Uncontroll ed type 2 diabetes mellitus 812257832 Active 2019 Not Available [facility] 3 07:29:43 Microscopi c hematuria 006497804 Active 2019 Not Available [facility] 3 07:29:41 Vitamin D deficiency 40178638 Active 2019 Not Available [facility] 3 07:29:42 Autoimmune hemolytic anemia 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 Active 2019 Not Available [facility] 3 07:29:43 History of atrial fibrillati on 121602855 Active 2019 Not Available [facility] 3 07:29:42 Type 2 diabetes mellitus without complicati on 097536867 Active 2019 Not Available [facility] 3 07:29:42 History of diabetes mellitus 816117267 Active 2019 Not Available [facility] 3 07:29:40 Increased frequency of urination 496969614 Active 2021 Not Available [facility] 3 07:29:40 Kole hematuria 064511513 Active 2021 Not Available [facility] 3 07:29:41 Blood in urine 37065874 Active 2021 Not Available [facility] 3 07:29:42 Lower urinary tract symptoms due to benign prostatic hypertroph y 4551566450067 1 Active 2021 Not Available [facility] 3 07:29:41 Disorder of prostate 40024474 Active 2021 Not Available [facility] 3 07:29:42 Active or passive immunizati on Active 2021 Not Available [facility] 3 07:29:40 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 Not Available [facility] 3 07:29:41 Adult health examinatio n Active 2021 Not Available [facility] 3 07:29:41 Urethral stricture 03367839 Active 2021 Not Available [facility] 3 07:29:44 Pain in right sacroiliac joint 1855126418681 9107 Active 2021 Not Available [facility] 3 07:29:40 Hypothyroi dism 82870649 Active 2021 Not Available [facility] 3 07:29:43 Swelling of bilateral lower limbs 151010771 Active 2021 Not Available [facility] 3 07:29:44 Acute urinary tract infection 402351546 Active 2021 Not Available [facility] 3 07:29:43 Bronchitis 57030410 Active 2021 Not Available [facility] 3 07:29:42 Cough 49193445 Active 2021 Not Available [facility] 3 07:29:43 Nasal congestion 10687279 Active 2022 Ray Moreno MD [address], [address], [place], [address] , [place] [facility] 3 16:31:40 Seasonal allergic rhinitis 022498169 Active 2022 Ray Moreno MD [address], [address], [place], [address] , [place] [facility] 3 17:38:01 Lumbar spondylosi s 988573170 Active 2022 Ray Moreno MD [address], [address], [place], [address] , [place] [facility] 3 10:23:15 Sleep apnea 48566985 Active 2022 Ray Moreno MD [address], [address], [place], [address] , [place] [facility] 3 10:26:16 Hypertensi ve disorder 78811440 Active 2022 Ray Moreno MD [address], [address], [place], [address] , [place] [facility] 3 10:30:36 Pancreatit is 26612825 Active 2022 Ray Moreno MD [address], [address], [place], [address] , [place] [facility] 3 14:14:30 Liver enzymes level above reference range 923161067 Active 2022 Ray Moreno MD [address], [address], [place], [address] , [place] [facility] 3 14:26:53 [place] palsy of left side of face 3475707288949 9103 Active 2023 Ray Moreno MD [address], [address], [place], [address] , [place] [facility] 4 12:52:16 Weakness of left facial muscle 154370325 Active 2023 Ray Moreno MD [address], [address], [place], [address] , [place] [facility] 4 12:54:06 Fatigue 34481163 Active 2023 Ray Moreno MD [address], [address], [place], [address] , [place] [facility] 4 14:59:09 COVID-19 300518332 Active 2024 Ray Moreno MD [address], [address], [place], [address] , [place] [facility] 5 09:41:43 Fever with chills 741261436 Active 2024 Ray Moreno MD [address], [address], [place], [address] , [place] [facility] 5 09:42:06 Open wound of left lower leg 5669998837181 9106 Active 2024 Ray Moreno MD [address], [address], [place], [address] , [place] [facility] 5 17:36:38 Open wound of lower limb 60639190 Active 2024 Ray Moreno MD [address], [address], [place], [address] , [place] [facility] 5 17:37:18 Ulcer of lower extremity 63242682 Active 2024 Ray Moreno MD [address], [address], [place], [address] , [facility] 17:39:05 Swelling of lower leg 388648841 Active 2024 Ray Moreno MD [address], [address], [place], [address] , [employer] [facility] 5 17:41:05 Open wound of lower limb 19436289 Active 2024 Thad Kenny DPM [address], [address], [place], [address] , [employer] [facility] 14:17:31 Lymphedema of limb 393673620 Active 2024 Thad Kenny DPM [address], [address], [place], [address] , [facility] 17:38:13 Peripheral venous insufficie ncy 08104985 Active 2024 Thad Kenny DPM [address], [address], [place], [address] , [facility] 15:36:51 Pruritic rash 56934236 Active 2024 Thad Kenny DPM [address], [address], [place], [address] , [facility] 5 12:15:14 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 sm 01962562 Active 2024 Ray Moreno MD [address], [address], [place], [address] , [employer] [facility] 16:31:18 Primary hypothyroi dism 03804946 Active 2024 Ray Moreno MD [address], [address], [place], [address] , [employer] [facility] 5 17:02:26 Stasis dermatitis 07254838 Active 2024 Ray Moreno MD [address] [facility], [address], [place], [address] , [employer] [facility] 5 17:17:05 Insect bite of lower limb 136222579 Active 2024 Thad Kenny DPM [address] [facility], [address], [place], [address] , [employer] [facility] 5 14:16:52 Open wound of toe 017480132 Active 2024 Thad Kenny DPM [address] [facility], [address], [place], [address] , [employer] [facility] [employer] [facility] 5 09:20:59 Eczema of lower limb 286335385 Active 2024 Ray Moreno MD [address] [address], [place], [address] , [employer] [facility] [employer] [facility] 5 17:16:58 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 389984270 Active 2024 Ray Moreno MD [address] [facility], [address] [address], [place], [address] , [employer] [facility] [employer] [facility] 5 17:19:16 Abnormal gait 11724089 Active 2024 Ray Moreno MD [address], [address] [address], [place], [address] , [employer] [facility] [employer] [facility] 5 17:40:46 Ulcer of toe of left foot Active 2024 Thad Kenny DPM [address] [facility], [address] [address], [place], [address] , [employer] [facility] 5 09:02:30 Notes:Ray Moreno MD [facility] home sleep study 01/02/23 AHI = 41, [...] 5 Wound Care-Podiatry completed Celia Li RN [facility] [employer] [facility] 05/25/2025 12:24:51 5 Wound Care-Podiatry completed Celia Li RN [facility] [employer] [facility] 05/11/2025 12:39:44 5 Wound Care-Podiatry completed Thad Kenny DPM [address], [address], [place], [address], [facility] [employer] [facility] [employer] [facility] 04/27/2025 13:57:28 5 Wound Care-Podiatry completed Thad Kenny DPM [address], [address], [place], [address], [facility] [employer] [facility] 04/21/2025 15:27:03 5 Wound Care-Podiatry completed Celia Li RN [facility] [employer] [facility] 04/13/2025 15:26:01 5 Transitional_C are_Management completed Tanya Moran RN [facility] [employer] [facility] 04/12/2025 17:03:42 5 Wound Care-Podiatry completed Thad Kenny DPM [address], [address], [place], [address], [facility] [employer] [facility] [employer] [facility] 04/04/2025 09:19:04 5 Wound Care-Podiatry completed Celia Li RN [facility] [employer] [facility] 03/23/2025 13:10:00 5 Wound Care-Podiatry completed Celia Li RN [facility] [employer] [facility] 03/16/2025 11:32:52 5 Wound Care-Podiatry completed Celia Li RN [facility] [employer] [facility] 03/09/2025 10:07:15 5 Wound Care-Podiatry completed Celia Li RN [facility] [employer] [facility] 03/02/2025 11:48:48 5 Wound Care-Podiatry completed Celia Li RN [facility] [employer] [facility] 02/23/2025 12:01:59 5 Wound Care-Podiatry completed Celia Li RN [facility] [employer] [facility] 02/16/2025 11:40:09 5 Wound Care-Podiatry completed Justice Dave RN [facility] [employer] [facility] 02/09/2025 10:23:16 5 Wound Care-Podiatry completed Thad Kenny DPM [address], [address], [place], [address], [facility] [employer] [facility] 02/02/2025 13:37:03 5 Wound Care-Podiatry completed Celia Li RN [facility] [employer] [facility] 01/26/2025 15:49:01 5 Wound Care-Podiatry completed Thad Kenny DPM [address], [address], [place], [address], [facility] [employer] [facility] 01/19/2025 13:31:19 5 Wound Care-Podiatry completed Justice Dave RN [facility] [employer] [facility] 01/17/2025 09:01:39 5 Wound Care-Podiatry completed Celia Li RN [facility] [employer] [facility] 01/05/2025 17:17:17 2 Hernia Surgery completed Not Available [facility] 09/18 07:26:20 Vasectomy completed Not Available [facility] 0 09/18/2022 07:26:20 Imaging Results None recorded. Procedure Notes None recorded. Medical Equipment None Reported. Allergies Allergen ID Allergen Name Allergen Category Reaction Reaction Severity Criticality Documentation Date Start Date Code Code System Note Provider Name and Address Organization Details Recorded Time 56071 peanut allergeni c extract food,medi cation itching mild Not available 09/18/2022 96258 8 RxNorm Not Available [facility] 07:34:13 28710 prednison e medicatio n other Not available high 12/28/20242019 8640 RxNorm Hyper glyce hipolito Blood sugar s shoot up to above 800 Tanya Moran RN null, [facility] [employer] [facility] 17:32:35 37968 Betadine medicatio n other severe high 04/12/20252024 36926 0 RxNorm blist ers, sores Tanya Moran RN null, [facility] [employer] [facility] 17:11:56 49957 prednisol one medicatio n Not available Not available Not available 06/03/20252024 8638 RxNorm Not Available more - External Data Service - prod 09:05:32 46381 iodine medicatio n Not available Not available Not available 06/03/20252024 5933 RxNorm sever e unrec ogniz ed react ion (text : Conta ct [employer] titis , code: 56927 004) (from exter [facility] e) Not Available mroe - External Data Service - prod 09:05:33 [...] Vitals Date Recorded Body height Body temperature Oxygen saturation Heart rate Respiratory rate Systolic And Diastolic Provider Name and Address Organization Details Last Updated DateTime 5 175.26 cm 98.2 [degF] 95 % 69 /min 18 /min 139/68 mm[Hg] Justice Dave RN [place] [facility] 5 14:48:42 Social History Question Answer Notes LastModified by Organizat ion Details LastModified Time Tobacco Smoking Status Former Smoker quit in 2017 Not Available [facility] 09/18/2022 07:25:57 Do You Have An Advance Directive? No MIGRATION.36768 61476 Information not available 09/18/2022 Do You Wear A Helmet When Biking? No MIGRATION.73172 76047 Information not available 09/18/2022 What Is Your Level Of Caffeine Consumption? Moderate MIGRATION.09445 14371 Information not available 09/18/2022 In The 14 Days Before Symptom Onset, Have You Had Close Contact With A [facility] While That Case Was Ill? No MIGRATION.70364 93330 Information not available 09/18/2022 In The 14 Days Before Symptom Onset, Have You Had Close Contact With A Person Who Is Under Investigation For COVID-19 While That Person Was Ill? No MIGRATION.33813 01870 Information not available 09/18/2022 What Type Of Diet Are You Following? REGULAR MIGRATION.59518 51651 Information not available 09/18/2022 What Is The Highest Grade Or Level Of School You Have Completed Or The Highest Degree You Have Received? KO31492-4 MIGRATION.74792 76748 Information not available 09/18/2022 Have There Been Any Changes To Your Family Or Social Situation? No MIGRATION.58387 49706 Information not available 09/18/2022 When Did You Quit Smoking? 1-5yearssincelastc igarette MIGRATION.46816 10543 Information not available 09/18/2022 Are There Any Guns Present In Your Home? No MIGRATION.31475 23570 Information not available 09/18/2022 Do You Use Insect Repellent Routinely? No MIGRATION.37810 58707 Information not available 09/18/2022 Where Do You Live? [facility] MIGRATION.69117 20215 Information not available 09/18/2022 Do You Have A Medical Power Of [place]ing [place]? No MIGRATION.36280 62044 Information not available 09/18/2022 Have You Ever Been Counseled For Unhealthy Alcohol Use? No MIGRATION.92584 54587 Information not available 09/18/2022 Do You Have Any Pets? Yes MIGRATION.23803 26543 Information not available 09/18/2022 What Is Your Relationship Status? MIGRATION.63083 39941 Information not available 09/18/2022 Do You Use Your Seat Belt Or Car Seat Routinely? Yes MIGRATION.30265 03401 Information not available 09/18/2022 Do You Have Smoke And Carbon Monoxide Detectors In Your Home? Yes MIGRATION.48689 67926 Information not available 09/18/2022 Are You Passively Exposed To Smoke? No MIGRATION.07160 17424 Information not available 09/18/2022 Are There Any Smokers In Your House? No MIGRATION.15636 68033 Information not available 09/18/2022 Do You Participate In Social Media? No MIGRATION.94431 77619 Information not available 09/18/2022 Do You Use Sunscreen Routinely? Yes MIGRATION.25447 94006 Information not available 09/18/2022 Has Tobacco Cessation Counseling Been Provided? No MIGRATION.73032 36386 Information not available 09/18/2022 Have You Recently Traveled Abroad? No MIGRATION.83277 28606 Information not available 09/18/2022 Are You Currently In School? No MIGRATION.55596 30360 Information not available 09/18/2022 Do You Have Any Dietary Restrictions? No MIGRATION.39463 39649 Information not available 09/18/2022 Sex: Male Functional Status Question Answer Note LastModified by Organizat ion Details LastModified Time Do you or have you ever used any other forms of tobacco or nicotine? No MIGRATION.58348707 26 Information not available 09/18/2022 What is your level of alcohol consumption? None MIGRATION.13354457 26 Information not available 09/18/2022 What is your exercise level? Occasional MIGRATION.31516395 26 Information not available 09/18/2022 Mental Status None recorded. Family History Relationship Description Onset Age of this Age Resolved Age Notes LastModified by Organization Details LastModified Time Sister Hypertensive disorder MIGRATION.695 [id number] Not available 09/18/2022 07:26:21 Maternal Grandfather Malignant neoplasm of prostate MIGRATION.034 4538325 Not available 09/18/2022 07:26:21 Mother Malignant neoplasm of breast MIGRATION.008 3777060 Not available 09/18/2022 07:26:21 Medical History Condition [...] HAVE YOU BEEN HOSPITALIZED OR SEEN IN [facility] IN THE PAST YEAR ? Y [...] Recorded Time HPV9 09/10/2021 completed Not Available [facility] 09/18/2022 07:34:06 Influenza, split virus, quadrivalent, PF 05/16/2020 completed Not Available [facility] 07:34:07 HPV9 05/16/2020 completed Not Available [facility] 09/18/2022 07:34:07 Tdap 09/16/2019 completed Not Available [facility] 09/18/2022 07:34:07 HPV9 12/18/2022 completed Karon Arredondo RN null, [facility] 12/18/2022 12:40:48 Influenza, split virus, trivalent, PF 07/01/2024 completed DARRICK May, [place] [employer] [facility] 07/02/2024 10:32:24 Past Encounters Encounter ID Performer Location Encounter Start Date Encounter Closed Date Diagnosis/Indication Diagnosis SNOMED-CT Code Diagnosis ICD10 Code Diagnosis IMO Codes Diagnosis Note [id number] Thad Kenny DPM [facility] [address] [place] [address] 03/02/2025 11:27:04 03/02/2025 13:48:36 Open wound of lower limb 06264926 S81.801D S81.802D [id number] continue daily wound careNew compressio n dressings with bilateral Profore is applied to lower extremitie sVenous ultrasound reviewed negative for DVTfollow- up 1 week for Nurse visit and 2 weeks for doctor visits Swelling o f bilateral lower limbs 946782535 M79.89 Secondary to above Peripheral venous insufficiency 13398817 I87.2 84959 continue chronic compressio nfollow-up with vascular Pruritic rash 41077053 L 28.2 755829 bilateral feet [id number] Thad Kenny DPM [facility] [address] [place] [address] 03/09/2025 09:54:18 03/09/2025 14:57:21 Open wound of lower limb 89384143 S81.801D S81.802D [id number] continue daily wound careNew compressio n dressings with bilateral Profore is applied to lower extremitie sVenous ultrasound reviewed negative for DVTfollow- up 1 week Swelling o f bilateral lower limbs 284681619 M79.89 Secondary to above Peripheral venous insufficiency 00119779 I87.2 13258 continue chronic compressio nfollow-up with vascular Pruritic rash 58254467 L 28.2 483370 bilateral feet [id number] Ray Moreno MD [facility] [address] [address] 03/09/2025 16:47:13 03/09/2025 17:13:43 Liver enzymes level above reference range 583907441 R74.01 Improved Hypertensive disorder 38 131663 I10 History of diabetes mellitus 301253644 Z86.39 Morbid obesity 297957466 E66.01 Vitamin D deficiency 347 76677 E55.9 Weakness o f left facial muscle 171760851 R29.810 Fatigue 76581224 R53.83 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sm 855260 06 E29.1 85833299 Primary hypothyroidism 66574459 E03.9 70436 Anemia 710257856 D64.9 4949159 Ex-cigarette smoker 2810 24736 Z87.891 810636 Stasis dermatitis 582689 05 I87.2 83074425 B/l legs [id number] Thad Kenny DPM [facility] [address] [place] [address] 03/16/2025 11:01:43 03/16/2025 17:01:40 Open wound of lower limb 64209705 S81.801D S81.802D [id number] two wounds- right lower legNew compressio n dressings with right Profore is applied to lower extremitie sTubigrip applied left lower legVenous ultrasound reviewed negative for DVTfollow- up 1 week Peripheral venous insufficiency 38835566 I87.2 90943 continue chronic compressio nfollow-up with vascular Pruritic rash 18753193 L 28.2 692065 bilateral feet- resolving [id number] [facility] [address] [place] [address] 03/23/2025 12:31:42 03/23/2025 17:19:50 Open wound of lower limb 84105947 S81.801D S81.802D 5729001370 two wounds- right lower legNew compressio n dressings with right Profore is applied to lower extremitie sTubigrip applied left lower legVenous ultrasound reviewed negative for DVTfollow- up 1 week Peripheral venous insufficiency 18756660 I87.2 71704 continue chronic compressio nfollow-up with vascular Insect bit e of lower limb 990987776 S80.869D W57.XXXD [id number] bilateral lower legsPET and house has been treated [id number] [facility] [address] [place] [address] 03/30/2025 14:25:49 04/04/2025 09:30:28 Open wound of lower limb 56356413 S81.801D S81.802D [id number] New compressio n dressings with right Profore is applied to lower extremitie sTubigrip applied left lower legVenous ultrasound reviewed negative for DVTfollow- up 1 week Peripheral venous insufficiency 86112020 I87.2 59359 continue chronic compressio nfollow-up with vascular Insect bit e of lower limb 899836247 S80.869D W57.XXXD 73094866 bilateral lower legsPET and house has been treated Open wound of toe 175240 002 S91.109A 35972066 left toesdaily dressingsm onitor for signs of infection at present seek medical attention immediatel y Health Concerns Section Related Observation LastModified by Organization Detai ls LastModified Time None Recorded Concern Status LastModified by Organization Details LastModified Time None Recorded Payers Encounter Date Sequence Insurance Name Policy Number Policy Leonard Covered Member ID Leonard Member ID Guarantor Name 03/30/2025 1 [facility] (O) [id number] Zheng Carrizales [id number] Zheng Carrizales Notes Date Note Type Note Provider Name and Address Organization Details Recorded Time 03/30/2025 text/html . Patient is a 40-year-old male who returns the office for follow-up on lower leg wounds. Patient has several new wounds secondary to the healing flea bites. Patient has some partial-thickness wounds of the toes now. Patient denies any acute signs of infection. Patient states that he also was doing a lot a yd work and wearing boots which caused significant rubbing to the anterior lower leg of both lower legs worse to the left. Patient has bruising which could potentially turned into wounds secondary to the frictional rubbing. Patient has healed the lateral right lower leg wounds with eschar and has continued stable full-thickness wounds of the left lower leg. Thad Kenny DPM [address] [place] [id number], [place], [id number], [facility] 04/04/2025 09:22:19
--- OUTSIDE RECORDS SUMMARY | 2025-06-15 01:23 | XMS_ITS | Continuity of Care Document ---
Author Organization [place] - [facility], [facility] Address [address] [place] [address] Care Team Providers Care Pe Manager Name Role Phone RAY MORENO Primary Care Provider [phone] Assessment Encounter Date Assessment Date Assessment LastModified by Organization Details LastModified Time 04/12/2025 04/12/2025 I have reconciled the patient's medications post their discharge from inpatient facility. [email or web address] Not available 04/12/2025 17:03:42 Plan of Treatment Reminders Order Date Submit Date Provider Last Modified By Organization Details Last Modified Time Details Appointments Follow Up 15 2025 09:00A M Ray Moreno MD Not available Not available Not available Lab None recorded. Referral bariatric surgery referral - Please call patient to schedule an appointme nt. Thank you. 2024 025 [facility], [address], [address], [place], [address], 04/15/2025 11:35:27 Procedures None recorded. Surgeries None recorded. Imaging None recorded. Medication Orders tramadol 50 mg tablet 2024 025 [id number], [address], [place], [id number], 04/26/2025 05:02:11 Lantus Solostar U-100 Insulin 100 unit/mL (3 mL) subcutane ous pen 2024 025 [facility] #[id number], [address] [facility], [place], [place], [id number], 04/12/2025 17:26:17 Humalog KwikPen U-200 Insulin 200 unit/mL (3 mL) subcutane ous 2024 025 [id number], [address] [facility], [place], [place], [id number], 04/12/2025 17:26:17 Patient TargetsNo targets recorded. Patient Instructions Encounter Date Encounter Id Patient Instructions Last Modified By Organization Details Last Modified Time 04/12/2025 [id number] Thank you for your visit to our office today. We would like to request that you reach out to your referring or previous provider and request that they send us a Summary of Care in electronic form, so that we may have it on file in your medical record. At your visit, we had the medical records we needed to provide you with the best possible care; however, for insurance purposes, an electronic Summary of Care is beneficial. Thank you for your assistance in obtaining this information and we look forward to providing continued care to you. Please review your medication list from the Summary of Care for this visit. If there are any differences from what you are currently taking at home, please call us to discuss. Not available 04/12/2025 17:03:42 Reason for Referral Bariatric Surgery Referral f or Morbid obesity Please call patient to schedule an appointment. Thank you. Referring Physician: Ray Moreno, Family Medicine, Encounter Date: 04/12/2025 Results Created Date Observation Date Name Description Value Unit Range Abnormal Flag Note LastModifiedBy Organization Detail LastModifiedTime 04/05/2004/05/2025 XR, foot No observ ation record ed. [place] [id number] [facility] [address], [place], [address], 04/12/2025 17:16:09 04/06/20 25 04/06/2025 US, renal No observ ation record ed. [email or web address] [place] [address] [facility] [address], [place], [address], 04/12/2025 17:16:09 Result Notes None recorded. Problems Name Problem SNOMED Code Status Onset Date Resolution Date Notes Provider Name and Address Organization Details Recorded Time Morbid obesity 209391329 Active 2019 Ray Moreno MD [address], [address], [place], [address] , [employer] 5 17:50:52 Ex-smoker 4707208 Active 2019 Not Available [facility] 3 07:29:44 History of sepsis 9903967853709 00 Active 2019 Not Available [facility] 3 07:29:40 Acute kidney injury 29917686 Active 2019 Not Available [facility] 3 07:29:40 Persistent insomnia 688203299 Active 2019 Not Available [facility] 3 07:29:40 Steatotic liver disease 197477456 Active 2019 Not Available [facility] 3 07:29:40 Anemia 479682774 Active 2019 Ray Moreno MD [address], [place], [address] , [employer] 5 17:04:16 Peripheral edema 645720589 Active 2019 Not Available [facility] 3 07:29:41 Cellulitis of lower limb 747210394 Active 2019 Not Available [facility] 3 07:29:43 Candidiasi s of mouth 67172034 Active 2019 Not Available [facility] 3 07:29:44 Umbilical hernia 719870597 Active 2019 Not Available [facility] 3 07:29:42 Uncontroll ed type 2 diabetes mellitus 016174272 Active 2019 Not Available [facility] 3 07:29:43 Microscopi c hematuria 395507320 Active 2019 Not Available [facility] 3 07:29:41 Vitamin D deficiency 16233072 Active 2019 Not Available [facility] 3 07:29:42 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 Not Available [facility] 3 07:29:43 History of atrial fibrillati on 596299607 Active 2019 Not Available [facility] 3 07:29:42 Type 2 diabetes mellitus without complicati on 384885177 Active 2019 Not Available [facility] 3 07:29:42 History of diabetes mellitus 403298601 Active 2019 Not Available [facility] 3 07:29:40 Increased frequency of urination 263069871 Active 2021 Not Available [facility] 3 07:29:40 Kole hematuria 125306442 Active 2021 Not Available [facility] 3 07:29:41 Blood in urine 00211369 Active 2021 Not Available [facility] 3 07:29:42 Lower urinary tract symptoms due to benign prostatic hypertroph y 7061003231923 1 Active 2021 Not Available [facility] 3 07:29:41 Disorder of prostate 94864432 Active 2021 Not Available [facility] 3 07:29:42 Active or passive immunizati on Active 2021 Not Available [facility] 3 07:29:40 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 Not Available [facility] 3 07:29:41 Adult health examinatio n Active 2021 Not Available [facility] 3 07:29:41 Urethral stricture 36630039 Active 2021 Not Available [facility] 3 07:29:44 Pain in right sacroiliac joint 8554064036561 9107 Active 2021 Not Available [facility] 3 07:29:40 Hypothyroi dism 27666555 Active 2021 Not Available [facility] 3 07:29:43 Swelling of bilateral lower limbs 476759186 Active 2021 Not Available [facility] 3 07:29:44 Acute urinary tract infection 007030282 Active 2021 Not Available [facility] 3 07:29:43 Bronchitis 94133700 Active 2021 Not Available [facility] 3 07:29:42 Cough 01610152 Active 2021 Not Available [facility] 3 07:29:43 Nasal congestion 23364705 Active 2022 Ray Moreno MD [address], [address], [place], [address] , [place] [facility] 3 16:31:40 Seasonal allergic rhinitis 216031041 Active 2022 Ray Moreno MD [address], [place], [address] , [place] [facility] 3 17:38:01 Lumbar spondylosi s 890904313 Active 2022 Ray Moreno MD [address], [place], [address] , [place] [facility] 3 10:23:15 Sleep apnea 48240015 Active 2022 Ray Moreno MD [address], [place], [address] , [place] [facility] 3 10:26:16 Hypertensi ve disorder 93151345 Active 2022 Ray Moreno MD [address], [place], [address] , [place] [facility] 3 10:30:36 Pancreatit is 33832896 Active 2022 Ray Moreno MD [address], [place], [address] , [place] [facility] 3 14:14:30 Liver enzymes level above reference range 433037019 Active 2022 Ray Moreno MD [address], [place], [address] , [place] [facility] 3 14:26:53 [place] palsy of left side of face 7329054203527 9103 Active 2023 Ray Moreno MD [address], [place], [address] , [place] [facility] 4 12:52:16 Weakness of left facial muscle 410173858 Active 2023 Ray Moreno MD [address], [place], [address] , [facility] 4 12:54:06 Fatigue 83001672 Active 2023 Ray Moreno MD [address], [place], [address] , [facility] 4 14:59:09 COVID-19 615962954 Active 2024 Ray Moreno MD [address], [place], [address] , [facility] 5 09:41:43 Fever with chills 392279150 Active 2024 Ray Moreno MD [address], [place], [address] , [facility] 5 09:42:06 Open wound of left lower leg 3299927907808 9106 Active 2024 Ray Moreno MD [address], [place], [address] , [facility] 5 17:36:38 Open wound of lower limb 28095973 Active 2024 Ray Moreno MD [address], [place], [address] , [facility] 5 17:37:18 Ulcer of lower extremity 08469518 Active 2024 Ray Moreno MD [address], [place], [address] , [employer] [facility] [employer] [facility] 5 17:39:05 Swelling of lower leg 269235049 Active 2024 Ray Moreno MD [address], [address], [place], [address] , [employer] [employer] [facility] [employer] [facility] 5 17:41:05 Open wound of lower limb 22103753 Active 2024 Thad Kenny DPM [address], [address], [place], [address] , [employer] [facility] [employer] 5 14:17:31 Lymphedema of limb 557959101 Active 2024 Thad Kenny DPM [address], [address], [place], [address] , [employer] [facility] [employer] 5 17:38:13 Peripheral venous insufficie ncy 69380881 Active 2024 Thad Kenny DPM [address], [place], [address] , [employer] [facility] [employer] 5 15:36:51 Pruritic rash 93924246 Active 2024 Thad Kenny DPM [address], [place], [address] , [employer] [facility] [employer] 5 12:15:14 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 sm 24200897 Active 2024 Ray Moreno MD [address], [address], [place], [address] , [employer] [facility] [employer] 5 16:31:18 Primary hypothyroi dism 12328665 Active 2024 Ray Moreno MD [address], [address], [place], [address] , [employer] [facility] [employer] 5 17:02:26 Stasis dermatitis 61335315 Active 2024 Ray Moreno MD [address], [place], [address] , [facility] [employer] [facility] 5 17:17:05 Insect bite of lower limb 606182862 Active 2024 Thad Kenny DPM [address], [place], [address] , [facility] [employer] [facility] 5 14:16:52 Open wound of toe 812045950 Active 2024 Thad Kenny DPM [address], [place], [address] , [facility] [employer] [facility] 5 09:20:59 Eczema of lower limb 605018494 Active 2024 Ray Moreno MD [address], [place], [address] , [facility] [employer] [facility] 5 17:16:58 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 463483063 Active 2024 Ray Moreno MD [address], [address] [address], [place], [address] , [facility] [employer] [facility] 5 17:19:16 Abnormal gait 16342344 Active 2024 Ray Moreno MD [address], [address] [address], [place], [address] , [facility] [employer] [facility] 5 17:40:46 Ulcer of toe of left foot Active 2024 Thad Kenny DPM [address], [address] , [facility] [employer] [facility] 5 09:02:30 Notes:Ray Moreno MD [facility] home sleep study 01/02/23 AHI = 41, [...] 5 Wound Care-Podiatry completed Celia Li RN [place] [employer] [facility] 05/25/2025 12:24:51 5 Wound Care-Podiatry completed Celia Li RN [facility] [employer] [facility] 05/11/2025 12:39:44 5 Wound Care-Podiatry completed Thad Kenny DPM [address], [place], [address], [employer] 04/27/2025 13:57:28 5 Wound Care-Podiatry completed Thad Kenny DPM [address], [place], [address], [employer] 04/21/2025 15:27:03 5 Wound Care-Podiatry completed Celia Li RN [facility] [employer] 04/13/2025 15:26:01 5 Transitional_C are_Management completed Tanya Moran RN [place] [employer] [facility] [employer] 04/12/2025 17:03:42 5 Wound Care-Podiatry completed Thad Kenny DPM [address], [place], [address], [employer] 04/04/2025 09:19:04 5 Wound Care-Podiatry completed Celia Li RN [facility] [employer] 03/23/2025 13:10:00 5 Wound Care-Podiatry completed Celia Li RN [facility] [employer] [facility] 03/16/2025 11:32:52 5 Wound Care-Podiatry completed Celia Li RN [facility] [employer] 03/09/2025 10:07:15 5 Wound Care-Podiatry completed Celia Li RN [facility] [employer] 03/02/2025 11:48:48 5 Wound Care-Podiatry completed Celia Li RN [facility] [employer] 02/23/2025 12:01:59 5 Wound Care-Podiatry completed Celia Li RN [facility] [employer] 02/16/2025 11:40:09 5 Wound Care-Podiatry completed Justice Dave RN [facility] [employer] 02/09/2025 10:23:16 5 Wound Care-Podiatry completed Thad Kenny DPM [address], [place], [address], [facility] [employer] 02/02/2025 13:37:03 5 Wound Care-Podiatry completed Celia Li RN [facility] [employer] 01/26/2025 15:49:01 5 Wound Care-Podiatry completed Thad Kenny DPM [address], [place], [address], [facility] [employer] 01/19/2025 13:31:19 5 Wound Care-Podiatry completed Justice Dave RN [facility] [employer] 01/17/2025 09:01:39 5 Wound Care-Podiatry completed Celia Li RN [facility] [employer] 01/05/2025 17:17:17 2 Hernia Surgery completed Not Available [facility] 09/18 07:26:20 Vasectomy completed Not Available [facility] 0 09/18/2022 07:26:20 Imaging Results None recorded. Procedure Notes None recorded. Medical Equipment None Reported. Allergies Allergen ID Allergen Name Allergen Category Reaction Reaction Severity Criticality Documentation Date Start Date Code Code System Note Provider Name and Address Organization Details Recorded Time 46386 peanut allergeni c extract food,medi cation itching mild Not available 09/18/2022 12658 8 RxNorm Not Available [facility] 07:34:13 27489 prednison e medicatio n other Not available [facility] 12/28/20242019 8640 RxNorm Hyper glyce hipolito Blood sugar s shoot up to above 800 Tanya Moran RN null, [facility] [employer] 17:32:35 33165 Betadine medicatio n other severe high 04/12/20252024 96460 0 RxNorm blist ers, sores Tanya Moran RN null, [facility] [employer] 17:11:56 77823 prednisol one medicatio n Not available Not available Not available 06/03/20252024 8638 RxNorm Not Available more - [employer] 09:05:32 57841 iodine medicatio n Not available Not available Not available 06/03/20252024 5933 RxNorm sever e unrec ogniz ed react ion (text : Conta ct [place] titis , code: 60228 004) (from [facility] e) Not Available [employer] 09:05:33 Medications Name Sig Start Date Stop [...] administ ered by the provider 11/25 completed [facility]: 0003-049 11-07 Not Available Not Available Not [...] active Not Available Not Available Not [employer] labcolt methylpre dnisolone 4 mg tablets in a [...] 2024 active Not Available Not Available Not Jaylanai lable metformin ER 500 mg tablet,ex tended [...] Details Last Updated DateTime 5 175.26 cm 60.7 kg/m2 919917. 86 g 99.5 [degF] 96 % 75 /min 138/84 mm[Hg] Tanya MoranRN [place] [facility] [employer] 5 17:09:47 Social History Question Answer Notes LastModified by Organizat ion Details LastModified Time Tobacco Smoking Status Former Smoker quit in 2017 Not Available [facility] 09/18/2022 07:25:57 Do You Have An Advance Directive? No MIGRATION.23524 10685 Information not available 09/18/2022 Do You Wear A Helmet When Biking? No MIGRATION.30663 42900 Information not available 09/18/2022 What Is Your Level Of Caffeine Consumption? Moderate MIGRATION.12272 98960 Information not available 09/18/2022 In The 14 Days Before Symptom Onset, Have You Had Close Contact With A Laboratory-touro infirmaryed COVID-19 While That Case Was Ill? No MIGRATION.55564 45019 Information not available 09/18/2022 In The 14 Days Before Symptom Onset, Have You Had Close Contact With A Person Who Is Under Investigation For COVID-19 While That Person Was Ill? No MIGRATION.38239 64349 Information not available 09/18/2022 What Type Of Diet Are You Following? REGULAR MIGRATION.20194 14114 Information not available 09/18/2022 What Is The Highest Grade Or Level Of School You Have Completed Or The Highest Degree You Have Received? BL85579-1 MIGRATION.90839 38640 Information not available 09/18/2022 Have There Been Any Changes To Your Family Or Social Situation? No MIGRATION.89949 78496 Information not available 09/18/2022 When Did You Quit Smoking? 1-5yearssincelastc igarette MIGRATION.00114 87560 Information not available 09/18/2022 Are There Any Guns Present In Your Home? No MIGRATION.87908 39431 Information not available 09/18/2022 Do You Use Insect Repellent Routinely? No MIGRATION.96650 57373 Information not available 09/18/2022 Where Do You Live? [facility] MIGRATION.85222 26040 Information not available 09/18/2022 Do You Have A Medical Power Of Mortgage Coordinator? No MIGRATION.01438 48088 Information not available 09/18/2022 Have You Ever Been Counseled For Unhealthy Alcohol Use? No MIGRATION.73964 65762 Information not available 09/18/2022 Do You Have Any Pets? Yes MIGRATION.06376 40957 Information not available 09/18/2022 What Is Your Relationship Status? MIGRATION.92542 57909 Information not available 09/18/2022 Do You Use Your Seat Belt Or Car Seat Routinely? Yes MIGRATION.84786 42564 Information not available 09/18/2022 Do You Have Smoke And Carbon Monoxide Detectors In Your Home? Yes MIGRATION.38767 38905 Information not available 09/18/2022 Are You Passively Exposed To Smoke? No MIGRATION.45191 91871 Information not available 09/18/2022 Are There Any Smokers In Your House? No MIGRATION.09534 12215 Information not available 09/18/2022 Do You Participate In Social Media? No MIGRATION.48904 36579 Information not available 09/18/2022 Do You Use Sunscreen Routinely? Yes MIGRATION.32729 46106 Information not available 09/18/2022 Has Tobacco Cessation Counseling Been Provided? No MIGRATION.46844 37578 Information not available 09/18/2022 Have You Recently Traveled Abroad? No MIGRATION.73844 63749 Information not available 09/18/2022 Are You Currently In School? No MIGRATION.51923 57825 Information not available 09/18/2022 Do You Have Any Dietary Restrictions? No MIGRATION.56889 69507 Information not available 09/18/2022 Sex: Male Functional Status Question Answer Note LastModified by Organizat ion Details LastModified Time Do you or have you ever used any other forms of tobacco or nicotine? No MIGRATION.07567535 26 Information not available 09/18/2022 What is your level of alcohol consumption? None MIGRATION.74783753 26 Information not available 09/18/2022 What is your exercise level? Occasional MIGRATION.47555891 26 Information not available 09/18/2022 Mental Status None recorded. Family History Relationship Description Onset Age of this Age Resolved Age Notes LastModified by Organization Details LastModified Time Sister Hypertensive disorder MIGRATION.775 [id number] Not available 09/18/2022 07:26:21 Maternal Grandfather Malignant neoplasm of prostate MIGRATION.146 5270754 Not available 09/18/2022 07:26:21 Mother Malignant neoplasm of breast MIGRATION.201 4651081 Not available 09/18/2022 07:26:21 Medical History Condition [...] HAVE YOU BEEN HOSPITALIZED OR SEEN IN [facility] IN THE PAST YEAR ? Y ATHEROSCLEROSIS [...] HPV9 09/10/2021 completed Not Available [facility] 09/18/2022 07:34:06 Influenza, split virus, quadrivalent, PF 05/16/2020 completed Not Available [facility] 07:34:07 HPV9 05/16/2020 completed Not Available [facility] 09/18/2022 07:34:07 Tdap 09/16/2019 completed Not Available [facility] 09/18/2022 07:34:07 HPV9 12/18/2022 completed Karon Arredondo RN null, [place] [employer] [facility] [employer] 12/18/2022 12:40:48 Influenza, split virus, trivalent, PF 07/01/2024 completed DARRICK May, [employer] [facility] [employer] 07/02/2024 10:32:24 Past Encounters Encounter ID Performer Location Encounter Start Date Encounter Closed Date Diagnosis/Indication Diagnosis SNOMED-CT Code Diagnosis ICD10 Code Diagnosis IMO Codes Diagnosis Note [id number] Thad Kenny DPM [facility] [address] [place] [address] 03/16/2025 11:01:43 03/16/2025 17:01:40 Open wound of lower limb 50844887 S81.801D S81.802D 9996867413 two wounds- right lower legNew compressio n dressings with right Profore is applied to lower extremitie sTubigrip applied left lower legVenous ultrasound reviewed negative for DVTfollow- up 1 week Peripheral venous insufficiency 58050633 I87.2 65095 continue chronic compressio nfollow-up with vascular Pruritic rash 93764334 L 28.2 517866 bilateral feet- resolving [id number] Thad Kenny DPM [facility] [address] [place] [address] 03/23/2025 12:31:42 03/23/2025 17:19:50 Open wound of lower limb 58077888 S81.801D S81.802D 8260420266 two wounds- right lower legNew compressio n dressings with right Profore is applied to lower extremitie sTubigrip applied left lower legVenous ultrasound reviewed negative for DVTfollow- up 1 week Peripheral venous insufficiency 72433417 I87.2 62430 continue chronic compressio nfollow-up with vascular Insect bit e of lower limb 980162357 S80.869D W57.XXXD 99725096 bilateral lower legsPET and house has been treated [id number] Thad Kenny DPM [facility] [address] [place] [address] 03/30/2025 14:25:49 04/04/2025 09:30:28 Open wound of lower limb 69671280 S81.801D S81.802D 4918207313 New compressio n dressings with right Profore is applied to lower extremitie sTubigrip applied left lower legVenous ultrasound reviewed negative for DVTfollow- up 1 week Peripheral venous insufficiency 43744563 I87.2 26464 continue chronic compressio nfollow-up with vascular Insect bit e of lower limb 169725335 S80.869D W57.XXXD 61261684 bilateral lower legsPET and house has been treated Open wound of toe 787864 002 S91.109A 93775881 left toesdaily dressingsm onitor for signs of infection at present seek medical attention immediatel y [id number] Ray Moreno MD [facility] [address] [address] 04/12/2025 16:59:42 04/13/2025 09:39:09 Transition of care 1515085055 105 Z75.8 Post-disch arge follow-up 693392963 Z09 725700 Eczema of lower limb 788 666275 L30.9 18818935 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 248079165 E09.9 T38.0X5D 6120536086 Morbid obesity 799797947 E66.01 87308 Abnormal gait 70860400 R 26.89 69367582 Health Concerns Section Related Observation LastModified by Organization Detai ls LastModified Time None Recorded Concern Status LastModified by Organization Details LastModified Time None Recorded Payers Encounter Date Sequence Insurance Name Policy Number Policy Leonard Covered Member ID Leonard Member ID Guarantor Name 04/12/2025 1 [place] [id number] Zheng Carrizales [id number] Zheng Carrizales Notes Date Note Type Note Provider Name and Address Organization Details Recorded Time 04/12/2025 text/html Hospital fuv: Pt was admitted to [facility] due to leg wounds and was seen by Surg for Biopsy and he was found to have allergic dermatitis. So pt was started on Prednisone and his sugars are high again. This has happened in the past with him and he had DM and was on Insulin and after few months, it got better. So he stopped all his DM meds and he is doing good. Pt will be seeing Wound clinic next week. Pt will be seeing his Cardio for any possible vascular intervention for his chronic leg wounds in few weeks. Ray Moreno MD [address] [place] [address], [id number], [facility] [employer] 04/12/2025 17:41:32
--- OUTSIDE RECORDS SUMMARY | 2025-06-15 01:23 | XMS_ITS | Continuity of Care Document ---
Author Organization [place] [facility] [employer], [facility] Address [address] [place] [address] Care Team Providers Care Community Education Specialist Name Role Phone RAY MORENO Primary Care Provider Assessment Encounter Date Assessment Date Assessment LastModified by Organization Details LastModified Time 04/20/2025 04/20/2025 This note is dictated and transcribed by [employer]. 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 Despite proofreading, typographical errors may occur. Occasional wrong-word or 'nckgh-c-jekb' substitutions may have occurred due to the inherent limitations of voice recording. Read the chart carefully and recognize, using context, where substitutions have occurred. [email or web address] Not available 04/21/2025 15:23:42 Plan of Treatment Reminders Order Date Submit [...] XR, foot No observ ation record ed. [address], [place], [address], 04/12/2025 17:16:09 04/06/20 25 04/06/2025 US, renal No observ ation record ed. [address], [place], [address], 04/12/2025 17:16:09 Result Notes None recorded. Problems Name Problem SNOMED Code Status Onset Date Resolution Date Notes Provider Name and Address Organization Details Recorded Time Morbid obesity 235533710 Active 2019 Ray Moreno MD [address], [facility] [address], [place], [address] , [employer] 5 17:50:52 Ex-smoker 8614621 Active 2019 Not Available [employer] 3 07:29:44 History of sepsis 6197993476604 00 Active 2019 Not Available [employer] 3 07:29:40 Acute kidney injury 24913571 Active 2019 Not Available [employer] 3 07:29:40 Persistent insomnia 033639124 Active 2019 Not Available [employer] 3 07:29:40 Steatotic liver disease 996010232 Active 2019 Not Available [employer] 3 07:29:40 Anemia 502489442 Active 2019 Ray Moreno MD [address] [facility], [facility] [address], [place], [address] , [employer] 5 17:04:16 Peripheral edema 200922999 Active 2019 Not Available [employer] 3 07:29:41 Cellulitis of lower limb 946297246 Active 2019 Not Available [employer] 3 07:29:43 Candidiasi s of mouth 51309016 Active 2019 Not Available [employer] 3 07:29:44 Umbilical hernia 429108066 Active 2019 Not Available [employer] 3 07:29:42 Uncontroll ed type 2 diabetes mellitus 769657320 Active 2019 Not Available [employer] 3 07:29:43 Microscopi c hematuria 149061071 Active 2019 Not Available [employer] 3 07:29:41 Vitamin D deficiency 13070735 Active 2019 Not Available [employer] 3 07:29:42 Autoimmune hemolytic anemia 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 Active 2019 Not Available [employer] 3 07:29:43 History of atrial fibrillati on 727194318 Active 2019 Not Available [employer] 3 07:29:42 Type 2 diabetes mellitus without complicati on 249792958 Active 2019 Not Available [employer] 3 07:29:42 History of diabetes mellitus 193362005 Active 2019 Not Available [employer] 3 07:29:40 Increased frequency of urination 895272456 Active 2021 Not Available [employer] 3 07:29:40 Kole hematuria 723075855 Active 2021 Not Available [employer] 3 07:29:41 Blood in urine 62362921 Active 2021 Not Available [employer] 3 07:29:42 Lower urinary tract symptoms due to benign prostatic hypertroph y 7071500723707 1 Active 2021 Not Available [employer] 3 07:29:41 Disorder of prostate 37459863 Active 2021 Not Available [employer] 3 07:29:42 Active or passive immunizati on Active 2021 Not Available [employer] 3 07:29:40 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 Not Available [employer] 3 07:29:41 Adult health examinatio n Active 2021 Not Available [employer] 3 07:29:41 Urethral stricture 73762853 Active 2021 Not Available [employer] 3 07:29:44 Pain in right sacroiliac joint 2484303541738 9107 Active 2021 Not Available [employer] 3 07:29:40 Hypothyroi dism 83274015 Active 2021 Not Available [employer] 3 07:29:43 Swelling of bilateral lower limbs 112951333 Active 2021 Not Available [facility] 3 07:29:44 Acute urinary tract infection 580273283 Active 2021 Not Available [facility] 3 07:29:43 Bronchitis 67631730 Active 2021 Not Available [facility] 3 07:29:42 Cough 70215391 Active 2021 Not Available [facility] 3 07:29:43 Nasal congestion 81230155 Active 2022 Ray Moreno MD [address], [address], [place], [address] , [place] [facility] 3 16:31:40 Seasonal allergic rhinitis 127803106 Active 2022 Ray Moreno MD [address], [address], [place], [address] , [place] [facility] 3 17:38:01 Lumbar spondylosi s 819554028 Active 2022 Ray Moreno MD [address], [address], [place], [address] , [place] [facility] 3 10:23:15 Sleep apnea 63126900 Active 2022 Ray Moreno MD [address], [address], [place], [address] , [place] [facility] 3 10:26:16 Hypertensi ve disorder 98773650 Active 2022 Ray Moreno MD [address], [address], [place], [address] , [place] [facility] 3 10:30:36 Pancreatit is 26865139 Active 2022 Ray Moreno MD [address], [address], [place], [address] , [place] [facility] 3 14:14:30 Liver enzymes level above reference range 961561812 Active 2022 Ray Moreno MD [address], [address], [place], [address] , [place] [facility] 3 14:26:53 [place] palsy of left side of face 5892658776629 9103 Active 2023 Ray Moreno MD [address], [address], [place], [address] , [place] [facility] 4 12:52:16 Weakness of left facial muscle 757633880 Active 2023 Ray Moreno MD [address], [address], [place], [address] , [place] [facility] 4 12:54:06 Fatigue 98056806 Active 2023 Ray Moreno MD [address], [address], [place], [address] , [place] [facility] 4 14:59:09 COVID-19 588125051 Active 2024 Ray Moreno MD [address], [address], [place], [address] , [place] [facility] 5 09:41:43 Fever with chills 396831781 Active 2024 Ray Moreno MD [address], [address], [place], [address] , [place] [facility] 5 09:42:06 Open wound of left lower leg 0455149370480 9106 Active 2024 Ray Moreno MD [address], [address], [place], [address] , [place] [facility] 5 17:36:38 Open wound of lower limb 71716110 Active 2024 Ray Moreno MD [address], [address], [place], [address] , [place] [facility] 5 17:37:18 Ulcer of lower extremity 02609752 Active 2024 Ray Moreno MD [address], [address], [place], [address] , [employer] 17:39:05 Swelling of lower leg 831862588 Active 2024 Ray Moreno MD [address], [address], [place], [address] , [employer] 5 17:41:05 Open wound of lower limb 24427404 Active 2024 Thad Kenny DPM [address], [address], [place], [address] , [employer] [facility] [employer] 14:17:31 Lymphedema of limb 349140558 Active 2024 Thad Kenny DPM [address], [address], [place], [address] , [employer] 17:38:13 Peripheral venous insufficie ncy 84789739 Active 2024 Thad Kenny DPM [address], [address], [place], [address] , [employer] 15:36:51 Pruritic rash 41914792 Active 2024 Thad Kenny DPM [address], [address], [place], [address] , [employer] 5 12:15:14 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 sm 67450192 Active 2024 Ray Moreno MD [address], [address], [place], [address] , [employer] [facility] [employer] 16:31:18 Primary hypothyroi dism 23602974 Active 2024 Ray Moreno MD [address], [address], [place], [address] , [employer] [facility] [employer] 5 17:02:26 Stasis dermatitis 75262505 Active 2024 Ray Moreno MD [address] [facility], [address], [place], [address] , [employer] [facility] 5 17:17:05 Insect bite of lower limb 099813680 Active 2024 Thad Kenny DPM [address] [facility] [address], [address], [place], [address] , [employer] [facility] 5 14:16:52 Open wound of toe 486668042 Active 2024 Thad Kenny DPM [address] [facility], [address], [place], [address] , [employer] [facility] [employer] [facility] 5 09:20:59 Eczema of lower limb 199840587 Active 2024 Ray Moreno MD [address] [employer], [address] [address], [place], [address] , [employer] [facility] [employer] [facility] 5 17:16:58 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 874704899 Active 2024 Ray Moreno MD [address] [facility], [place] [address], [place], [address] , [employer] [facility] [employer] [facility] 5 17:19:16 Abnormal gait 61649556 Active 2024 Ray Moreno MD [address] [employer], [address] [address], [place], [address] , [employer] [facility] [employer] [facility] 5 17:40:46 Ulcer of toe of left foot Active 2024 Thad Kenny DPM [address] [facility], [address] [address], [place], [address] , [employer] [facility] 5 09:02:30 Notes:Ray Moreno MD [phone] [facility] home sleep study 01/02/23 AHI = 41, [...] 5 Wound Care-Podiatry completed Celia Li RN [facility] [employer] [facility] 05/25/2025 12:24:51 5 Wound Care-Podiatry completed Celia Li RN [facility] [employer] [facility] 05/11/2025 12:39:44 5 Wound Care-Podiatry completed Thad Kenny DPM [address], [address], [place], [address], [facility] [employer] [facility] [employer] [facility] 04/27/2025 13:57:28 5 Wound Care-Podiatry completed Thad Kenny DPM [address], [address], [place], [address], [facility] [employer] [facility] 04/21/2025 15:27:03 5 Wound Care-Podiatry completed Celia Li RN [facility] [employer] [facility] 04/13/2025 15:26:01 5 Transitional_C are_Management completed Tanya Moran RN [facility] [employer] [facility] 04/12/2025 17:03:42 5 Wound Care-Podiatry completed Thad Kenny DPM [address], [address], [place], [address], [facility] [employer] [facility] [employer] [facility] 04/04/2025 09:19:04 5 Wound Care-Podiatry completed Celia Li RN [facility] [employer] [facility] 03/23/2025 13:10:00 5 Wound Care-Podiatry completed Celia Li RN [facility] [employer] [facility] 03/16/2025 11:32:52 5 Wound Care-Podiatry completed Celia Li RN [facility] [employer] [facility] 03/09/2025 10:07:15 5 Wound Care-Podiatry completed Celia Li RN [facility] [employer] [facility] 03/02/2025 11:48:48 5 Wound Care-Podiatry completed Celia Li RN [facility] [employer] [facility] 02/23/2025 12:01:59 5 Wound Care-Podiatry completed Celia Li RN [facility] [employer] [facility] 02/16/2025 11:40:09 5 Wound Care-Podiatry completed Justice Dave RN [facility] [employer] [facility] 02/09/2025 10:23:16 5 Wound Care-Podiatry completed Thad Kenny DPM [address], [place], [address], [facility] [employer] [facility] 02/02/2025 13:37:03 5 Wound Care-Podiatry completed Celia Li RN [facility] [employer] [facility] 01/26/2025 15:49:01 5 Wound Care-Podiatry completed Thad Kenny DPM [address], [place], [address], [facility] [employer] [facility] 01/19/2025 13:31:19 5 Wound Care-Podiatry completed Justice Dave RN [facility] [employer] [facility] 01/17/2025 09:01:39 5 Wound Care-Podiatry completed Celia Li RN [facility] [employer] [facility] 01/05/2025 17:17:17 2 Hernia Surgery completed Not Available [facility] 09/18 07:26:20 Vasectomy completed Not Available [facility] 0 09/18/2022 07:26:20 Imaging Results None recorded. Procedure Notes None recorded. Medical Equipment None Reported. Allergies Allergen ID Allergen Name Allergen Category Reaction Reaction Severity Criticality Documentation Date Start Date Code Code System Note Provider Name and Address Organization Details Recorded Time 63565 peanut allergeni c extract food,medi cation itching mild Not available 09/18/2022 23311 8 RxNorm Not Available [facility] 07:34:13 58181 prednison e medicatio n other Not available high 12/28/20242019 8640 RxNorm Hyper glyce hipolito Blood sugar s shoot up to above 800 Tanya Moran RN null, [facility] [employer] [facility] 17:32:35 67775 Betadine medicatio n other severe high 04/12/20252024 47550 0 RxNorm blist ers, sores Tanya Moran RN null, [facility] [employer] [facility] 17:11:56 36823 prednisol one medicatio n Not available Not available Not available 06/03/20252024 8638 RxNorm Not Available more - External Data Service - prod 09:05:32 95521 iodine medicatio n Not available Not available Not available 06/03/20252024 5933 RxNorm sever e unrec ogniz ed react ion (text : Conta ct [place] titis , code: 59606 004) (from [facility] e) Not Available more - External Data [...] ered by the provider 11/25 completed [facility]: [id number] 11-07 Not Available Not Available [...] height Heart rate Oxygen saturation Body temperature Provider Name and Address Organization Details Last Updated DateTime 04/20/2025 175.26 cm 79 /min 93 % 99.3 [degF] Justice Dave RN [place] [employer] 04/20/2025 12:36:12 Social History Question Answer Notes LastModified by Organizat ion Details LastModified Time Tobacco Smoking Status Former Smoker quit in 2017 Not Available [employer] 09/18/2022 07:25:57 Do You Have An Advance Directive? No MIGRATION.95971 06231 Information not available 09/18/2022 Do You Wear A Helmet When Biking? No MIGRATION.46832 03170 Information not available 09/18/2022 What Is Your Level Of Caffeine Consumption? Moderate MIGRATION.45545 68440 Information not available 09/18/2022 In The 14 Days Before Symptom Onset, Have You Had Close Contact With A [facility] While That Case Was Ill? No MIGRATION.23137 75214 Information not available 09/18/2022 In The 14 Days Before Symptom Onset, Have You Had Close Contact With A Person Who Is Under Investigation For COVID-19 While That Person Was Ill? No MIGRATION.32592 17018 Information not available 09/18/2022 What Type Of Diet Are You Following? REGULAR MIGRATION.88647 17186 Information not available 09/18/2022 What Is The Highest Grade Or Level Of School You Have Completed Or The Highest Degree You Have Received? CU05945-4 MIGRATION.27191 55824 Information not available 09/18/2022 Have There Been Any Changes To Your Family Or Social Situation? No MIGRATION.08459 05114 Information not available 09/18/2022 When Did You Quit Smoking? 1-5yearssincelastc igarette MIGRATION.57102 13100 Information not available 09/18/2022 Are There Any Guns Present In Your Home? No MIGRATION.59640 98463 Information not available 09/18/2022 Do You Use Insect Repellent Routinely? No MIGRATION.71274 76112 Information not available 09/18/2022 Where Do You Live? [facility] MIGRATION.14409 37990 Information not available 09/18/2022 Do You Have A Medical Power Of Dispenser Operator? No MIGRATION.49679 78368 Information not available 09/18/2022 Have You Ever Been Counseled For Unhealthy Alcohol Use? No MIGRATION.77162 80959 Information not available 09/18/2022 Do You Have Any Pets? Yes MIGRATION.42540 60870 Information not available 09/18/2022 What Is Your Relationship Status? MIGRATION.12981 98317 Information not available 09/18/2022 Do You Use Your Seat Belt Or Car Seat Routinely? Yes MIGRATION.51315 14602 Information not available 09/18/2022 Do You Have Smoke And Carbon Monoxide Detectors In Your Home? Yes MIGRATION.04117 33386 Information not available 09/18/2022 Are You Passively Exposed To Smoke? No MIGRATION.22230 46921 Information not available 09/18/2022 Are There Any Smokers In Your House? No MIGRATION.03439 43509 Information not available 09/18/2022 Do You Participate In Social Media? No MIGRATION.80734 42333 Information not available 09/18/2022 Do You Use Sunscreen Routinely? Yes MIGRATION.46971 40452 Information not available 09/18/2022 Has Tobacco Cessation Counseling Been Provided? No MIGRATION.12539 61363 Information not available 09/18/2022 Have You Recently Traveled Abroad? No MIGRATION.62590 34512 Information not available 09/18/2022 Are You Currently In School? No MIGRATION.11886 52235 Information not available 09/18/2022 Do You Have Any Dietary Restrictions? No MIGRATION.97088 44165 Information not available 09/18/2022 Sex: Male Functional Status Question Answer Note LastModified by Organizat ion Details LastModified Time Do you or have you ever used any other forms of tobacco or nicotine? No MIGRATION.12169634 26 Information not available 09/18/2022 What is your level of alcohol consumption? None MIGRATION.66240577 26 Information not available 09/18/2022 What is your exercise level? Occasional MIGRATION.05978515 26 Information not available 09/18/2022 Mental Status None recorded. Family History Relationship Description Onset Age of this Age Resolved Age Notes LastModified by Organization Details LastModified Time Sister Hypertensive disorder MIGRATION.791 [id number] Not available 09/18/2022 07:26:21 Maternal Grandfather Malignant neoplasm of prostate MIGRATION.387 4002668 Not available 09/18/2022 07:26:21 Mother Malignant neoplasm of breast MIGRATION.279 1031571 Not available 09/18/2022 07:26:21 Medical History Condition [...] HAVE YOU BEEN HOSPITALIZED OR SEEN IN [facility] IN THE PAST YEAR ? [...] Recorded Time HPV9 09/10/2021 completed Not Available [facility] 09/18/2022 07:34:06 Influenza, split virus, quadrivalent, PF 05/16/2020 completed Not Available [facility] 07:34:07 HPV9 05/16/2020 completed Not Available [facility] 09/18/2022 07:34:07 Tdap 09/16/2019 completed Not Available [facility] 09/18/2022 07:34:07 HPV9 12/18/2022 completed Karon Arredondo RN null, [place] [employer] [facility] [employer] 12/18/2022 12:40:48 Influenza, split virus, trivalent, PF 07/01/2024 completed DARRICK May, [place] [employer] [facility] [employer] 07/02/2024 10:32:24 Past Encounters Encounter ID Performer Location Encounter Start Date Encounter Closed Date Diagnosis/Indication Diagnosis SNOMED-CT Code Diagnosis ICD10 Code Diagnosis IMO Codes Diagnosis Note [id number] Thad Kenny DPM [facility] [address] [place] [address] 03/23/2025 12:31:42 03/23/2025 17:19:50 Open wound of lower limb 94563358 S81.801D S81.802D 1745126390 two wounds- right lower legNew compressio n dressings with right Profore is applied to lower extremitie sTubigrip applied left lower legVenous ultrasound reviewed negative for DVTfollow- up 1 week Peripheral venous insufficiency 15910766 I87.2 73751 continue chronic compressio nfollow-up with vascular Insect bit e of lower limb 873190097 S80.869D W57.XXXD 21076613 bilateral lower legsPET and house has been treated [id number] [facility] [address] [place] [address] 03/30/2025 14:25:49 04/04/2025 09:30:28 Open wound of lower limb 19827910 S81.801D S81.802D 8645466104 New compressio n dressings with right Profore is applied to lower extremitie sTubigrip applied left lower legVenous ultrasound reviewed negative for DVTfollow- up 1 week Peripheral venous insufficiency 86163844 I87.2 36637 continue chronic compressio nfollow-up with vascular Insect bit e of lower limb 685339363 S80.869D W57.XXXD [id number] bilateral lower legsPET and house has been treated Open wound of toe 223195 002 S91.109A 56235863 left toesdaily dressingsm onitor for signs of infection at present seek medical attention immediatel y [id number] Ray Moreno MD [facility] [address] [address] 04/12/2025 16:59:42 04/13/2025 09:39:09 Transition of care 8088945972 105 Z75.8 Post-disch arge follow-up 983846955 Z09 286143 Eczema of lower limb 788 827628 L30.9 88481917 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 422172028 E09.9 T38.0X5D 4338421200 Morbid obesity 489319772 E66.01 40768 Abnormal gait 31260150 R 26.89 49399841 [id number] Thad Kenny DPM [facility] [address] [place] [address] 04/13/2025 14:10:54 04/14/2025 17:53:50 Open wound of lower limb 17684152 S81.801D S81.802D [id number] New compressio n dressings with right Profore is applied to lower extremitie sTubigrip applied left lower legVenous ultrasound reviewed negative for DVTfollow- up 1 week Peripheral venous insufficiency 69545801 I87.2 90329 continue chronic compressio nfollow-up with vascular Insect bit e of lower limb 995705325 S80.869D W57.XXXD 87023160 bilateral lower legsPET and house has been treated Ulcer of t oe of left foot 9718736767 1507619 L97.522 39342539 multiple- toesdaily dressingsm onitor for signs of infectionf ollow-up on week [id number] Thad Kenny DPM [facility] [address] [place] [address] 04/20/2025 12:05:06 04/21/2025 15:47:45 Open wound of lower limb 99354841 S81.801D S81.802D 3747511563 New compressio n dressings with bilateral Profore is applied to lower extremitie sTubigrip applied left lower legVenous ultrasound reviewed negative for DVTfollow- up 1 week Ulcer of t oe of left foot 2966645820 9663156 L97.522 78574579 multiple- toesdaily dressingsm onitor for signs of infectionf ollow-up on week Peripheral venous insufficiency 33971417 I87.2 35585 continue chronic compressio nfollow-up with vascular Health Concerns Section Related Observation LastModified by Organization Shira vazquez LastModified Time None Recorded Concern Status LastModified by Organization Details LastModified Time None Recorded Payers Encounter Date Sequence Insurance Name Policy Number Policy Leonard Covered Member ID Leonard Member ID Guarantor Name 04/20/2025 1 [place] [id number] Zheng Carrizales [id number] Zheng Carrizales Notes Date Note Type Note Provider Name and Address Organization Details Recorded Time 04/20/2025 text/html . Patient is a 40-year-old male who returns the office for follow-up on wound care. Patient overall is doing well he is almost completely healed to the lower extremity wounds he still has some healing wounds of the toes which are also improving. Patient denies any other complaints. Thad Kenny DPM [address] [place] [address], [place], [address], [facility] [employer] 04/21/2025 15:29:54
--- OUTSIDE RECORDS SUMMARY | 2025-06-15 01:23 | XMS_ITS | Data Portability ---
Author Organization [facility], Main Office Address [address] [place] [address] Care Team Providers Care Abstract Writer Name Role Phone RAY MORENO Primary Care Provider [phone] Assessment Encounter Date Assessment Date Assessment LastModified by Organization Details LastModified Time 05/11/2025 05/11/2025 This note is dictated and transcribed by [employer]. [employer] Fl[employer] Layer variances may occur. Despite proofreading, typographical errors may occur. Occasional wrong-word or 'ynupw-n-wwep' substitutions may have occurred due to the inherent limitations of voice recording. Read the chart carefully and recognize, using context, where substitutions have occurred. Not available 05/11/2025 14:17:29 05/25/2025 05/25/2025 This note is dictated and transcribed by [employer]. [employer] variances may occur. Despite proofreading, typographical errors may occur. Occasional wrong-word or 'qqeyx-b-saul' substitutions may have occurred due to the inherent limitations of voice recording. Read the chart carefully and recognize, using context, where substitutions have occurred. Not available 06/01/2025 14:18:22 06/06/2025 06/06/2025 40 yo M with - [...] per schedule. Cont f/u with Hemat at [place] as per schedule. Cont f/u with Cardio at [place] as per schedule. Cont f/u with Bariatric surgeon at [facility] as per schedule. Advised to refer to Endo; but pt declined. Advised to refer for sleep study; but pt declined. HM: Flu - Pt declined. Tdap - 09/16/19. Gardasil - 05/16/20, 09/10/21, 12/18/22. F/u in 3 months. T-level, TSH, A1c in 09/15. Annual labs in 02/12. [email or web address] Not available 06/06/2025 12:12:37 Plan of Treatment Reminders Order Date Submit Date Provider Last Modified By Organization Details Last Modified Time Details Appointments Follow Up 15 2025 09:00A M Ray Moreno MD Not available Not available Not available Lab TSH, serum, reflex free T4 [address] ([facility]), [address] [place], [address], 06/06/2025 11:58:44 testoster one, free + total, serum [address] ([facility]), [address] [place], [address], 06/06/2025 11:58:44 HbA1c (hemoglob in A1c), blood [address] ([facility]), [address] [place], [address], 06/06/2025 11:58:44 Referral None recorded. Procedures None recorded. Surgeries None recorded. Imaging None recorded. Medication Orders levothyro xine 25 mcg tablet 2024 [id number], [address] [place], [place], [id number], 06/06/2025 11:59:30 Contrave 8 mg-90 mg tablet,ex tended release 2024 [facility], [address] [facility], [place], [place], [id number], 06/06/2025 19:16:08 testoster one cypionate 200 mg/mL intramusc ular oil 2024 [facility] #[id number], [address], [place], [id number], 06/06/2025 11:59:41 ferrous sulfate 325 mg (65 mg iron) tablet 2024 025 [facility] #[id number], [address] [facility], [place], [place], [id number], 06/06/2025 11:59:28 ergocalci ferol (vitamin D2) 1,250 mcg (50,000 unit) capsule 2024 025 [id number], [address] [facility], [place], [place], [id number], 06/06/2025 11:59:44 Patient TargetsNo targets recorded. Patient Instructions Encounter Date Encounter Id Patient Instructions Last Modified By Organization Details Last Modified Time 06/06/2025 [id number] high blood pressure: care instructions [email or web address] Not available 06/06/2025 11:58:44 dash diet: care instructions [email or web address] Not available 06/06/2025 11:58:44 learning about obesity [email or web address] Not available 06/06/2025 11:58:44 Starting a Weight-Loss Plan: Care Instructions [email or web address] Not available 06/06/2025 11:58:44 body mass index: care instructions [email or web address] Not available 06/06/2025 11:58:44 Reason for Referral None Reported. Results Created Date Observation Date Name Description Value Unit Range Abnormal Flag Note LastModifiedBy Organization Detail LastModifiedTime 06/03/2006/03/2025 CBC/C OMPLE TE BLD COUNT W/DIF F white blood cells 7.5 x10'3 /uL 4.2-10 .8 Not Available [facility] (Lab) [address] [place], [address], 06/03/2025 12:26:43 06/03/20 25 06/03/2025 CBC/C OMPLE TE BLD COUNT W/DIF F red blood cells 5.24 x10'6 /uL 4.10-5 .80 Not Available [facility] (Lab) [address] [place], [address], 06/03/2025 12:26:43 06/03/20 25 06/03/2025 CBC/C OMPLE TE BLD COUNT W/DIF F hemoglobin 13.9 g/dL 13.2-1 7.0 Not Available [facility] (Lab) [address] [place], [address], 06/03/2025 12:26:43 06/03/20 25 06/03/2025 CBC/C OMPLE TE BLD COUNT W/DIF F hematocrit 44.7 % 39.3-5 0.0 Not Available [facility] (Lab) [address] [place], [address], 06/03/2025 12:26:43 06/03/20 25 06/03/2025 CBC/C OMPLE TE BLD COUNT W/DIF F mean red cell volume 85.3 fL 80.0-9 7.0 Not Available [facility] (Lab) [address] [place], [address], 06/03/2025 12:26:43 06/03/20 25 06/03/2025 CBC/C OMPLE TE BLD COUNT W/DIF F mean red cell hemoglobin 26.5 pg 27.0-3 3.0 low Not Available [facility] (Lab) [address] [place], [address], 06/03/2025 12:26:43 06/03/20 25 06/03/2025 CBC/C OMPLE TE BLD COUNT W/DIF F mean RBC HGB concentratio n 31.1 g/dL 31.0-3 6.0 Not Available [facility] (Lab) [address] [place], [address], 06/03/2025 12:26:43 06/03/20 25 06/03/2025 CBC/C OMPLE TE BLD COUNT W/DIF F red cell distribution width 15.9 % 11.8-1 5.5 high Not Available [facility] (Lab) [address] [place], [address], 06/03/2025 12:26:43 06/03/20 25 06/03/2025 CBC/C OMPLE TE BLD COUNT W/DIF F platelets 232 x10'3 /uL 150-40 0 Not Available [facility] (Lab) [address] [place], [address], 06/03/2025 12:26:43 06/03/20 25 06/03/2025 CBC/C OMPLE TE BLD COUNT W/DIF F mean platelet volume 10.6 fL 9.0-12 .4 Not Available [facility] (Lab) [address] [place], [address], 06/03/2025 12:26:43 06/03/20 25 06/03/2025 CBC/C OMPLE TE BLD COUNT W/DIF F neutrophils 77.7 % 39.0-7 2.0 high Not Available [facility] (Lab) [address] [place], [address], 06/03/2025 12:26:43 06/03/20 25 06/03/2025 CBC/C OMPLE TE BLD COUNT W/DIF F lymphocytes 14.2 % 16.0-4 7.0 low Not Available [facility] (Lab) [address] [place], [address], 06/03/2025 12:26:43 06/03/20 25 06/03/2025 CBC/C OMPLE TE BLD COUNT W/DIF F monocytes 5.5 % 5.0-12 .0 Not Available [facility] (Lab) [address] [place], [address], 06/03/2025 12:26:43 06/03/20 25 06/03/2025 CBC/C OMPLE TE BLD COUNT W/DIF F eosinophils 1.5 % 1.0-7. 0 Not Available [facility] (Lab) [address] [place], [address], 06/03/2025 12:26:43 06/03/20 25 06/03/2025 CBC/C OMPLE TE BLD COUNT W/DIF F basophils 0.7 % 0.0-2. 0 Not Available [facility] (Lab) [address] [place], [address], 06/03/2025 12:26:43 06/03/20 25 06/03/2025 CBC/C OMPLE TE BLD COUNT W/DIF F immature granulocytes 0.4 % 0.00-0 .50 Not Available [facility] (Lab) [address] [place], [address], 06/03/2025 12:26:43 06/03/20 25 06/03/2025 CBC/C OMPLE TE BLD COUNT W/DIF F neutrophils, absolute count 5.85 x10'3 /uL 1.5-8. 0 Not Available [facility] (Lab) [address] [place], [address], 06/03/2025 12:26:43 06/03/20 25 06/03/2025 CBC/C OMPLE TE BLD COUNT W/DIF F lymphocytes, absolute count 1.07 x10'3 /uL 1.07-3 .43 Not Available [facility] (Lab) [address] [place], [address], 06/03/2025 12:26:43 06/03/20 25 06/03/2025 CBC/C OMPLE TE BLD COUNT W/DIF F monocytes, absolute count 0.41 x10'3 /uL 0.29-0 .99 Not Available [facility] (Lab) [address] [place], [address], 06/03/2025 12:26:43 06/03/20 25 06/03/2025 CBC/C OMPLE TE BLD COUNT W/DIF F eosinophils, absolute count 0.11 x10'3 /uL 0.02-0 .53 Not Available [facility] (Lab) [address] [place], [address], 06/03/2025 12:26:43 06/03/20 25 06/03/2025 CBC/C OMPLE TE BLD COUNT W/DIF F basophils, absolute count 0.05 x10'3 /uL 0.01-0 .08 Not Available [facility] (Lab) [address] [place], [address], 06/03/2025 12:26:43 06/03/20 25 06/03/2025 CBC/C OMPLE TE BLD COUNT W/DIF F immature granulocytes ,absolute 0.03 x10'3 /uL 0.00-0 .05 Not Available [facility] (Lab) [address] [place], [address], 06/03/2025 12:26:43 06/03/20 25 06/03/2025 CBC/C OMPLE TE BLD COUNT W/DIF F nucleated red blood cells 0.0 % -0 Not Available [facility] (Lab) [address] [place], [address], 06/03/2025 12:26:43 06/03/20 25 06/03/2025 CBC/C OMPLE TE BLD COUNT W/DIF F NRBC# 0.00 x10'3 /uL Not Available [facility] (Lab) [address] [place], [address], 06/03/2025 12:26:43 06/03/20 25 06/03/2025 TSH thyroid-stim ulating hormone 2.400 uIU/m L 0.465- 4.680 Not Available [facility] (Lab) [address] [place], [address], 06/03/2025 13:06:33 06/03/20 25 06/03/2025 T4 FREE free T4 1.33 NG/dL 0.78-2 .19 Not Available [facility] (Lab) [address] [facility] [place], [address], 06/03/2025 13:06:49 Result Notes None recorded. Problems Name Problem SNOMED Code Status Onset Date Resolution Date Notes Provider Name and Address Organization Details Recorded Time Morbid obesity 053573458 Active 2019 Ray Moreno MD [address] [facility] [address], [place], [address] , [employer] 5 17:50:52 Ex-smoker 4881717 Active 2019 Not Available [employer] 3 07:29:44 History of sepsis 8504827863066 00 Active 2019 Not Available [employer] 3 07:29:40 Acute kidney injury 40247450 Active 2019 Not Available [employer] 3 07:29:40 Persistent insomnia 075409567 Active 2019 Not Available [employer] 3 07:29:40 Steatotic liver disease 426700989 Active 2019 Not Available [employer] 3 07:29:40 Anemia 253204005 Active 2019 Ray Moreno MD [address] [facility], [facility] [address], [place], [address] , [employer] 5 17:04:16 Peripheral edema 737830392 Active 2019 Not Available [employer] 3 07:29:41 Cellulitis of lower limb 403153260 Active 2019 Not Available [employer] 3 07:29:43 Candidiasi s of mouth 15501778 Active 2019 Not Available [employer] 3 07:29:44 Umbilical hernia 539813478 Active 2019 Not Available [employer] 3 07:29:42 Uncontroll ed type 2 diabetes mellitus 449471479 Active 2019 Not Available [employer] 3 07:29:43 Microscopi c hematuria 156683403 Active 2019 Not Available [employer] 3 07:29:41 Vitamin D deficiency 85476310 Active 2019 Not Available [employer] 3 07:29:42 Autoimmune hemolytic anemia 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 Active 2019 Not Available [employer] 3 07:29:43 History of atrial fibrillati on 919848252 Active 2019 Not Available [employer] 3 07:29:42 Type 2 diabetes mellitus without complicati on 839396892 Active 2019 Not Available [employer] 3 07:29:42 History of diabetes mellitus 433947366 Active 2019 Not Available [employer] 3 07:29:40 Increased frequency of urination 693913836 Active 2021 Not Available [employer] 3 07:29:40 Kole hematuria 837854750 Active 2021 Not Available [employer] 3 07:29:41 Blood in urine 35711468 Active 2021 Not Available [employer] 3 07:29:42 Lower urinary tract symptoms due to benign prostatic hypertroph y 5122401436595 1 Active 2021 Not Available [employer] 3 07:29:41 Disorder of prostate 97835143 Active 2021 Not Available [employer] 3 07:29:42 Active or passive immunizati on Active 2021 Not Available [employer] 3 07:29:40 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 2021 Not Available [employer] 3 07:29:41 Adult health examinatio n Active 2021 Not Available [employer] 3 07:29:41 Urethral stricture 78162841 Active 2021 Not Available [employer] 3 07:29:44 Pain in right sacroiliac joint 9009469095361 9107 Active 2021 Not Available [employer] 3 07:29:40 Hypothyroi dism 99491456 Active 2021 Not Available [facility] 3 07:29:43 Swelling of bilateral lower limbs 756711778 Active 2021 Not Available [facility] 3 07:29:44 Acute urinary tract infection 548447330 Active 2021 Not Available [facility] 3 07:29:43 Bronchitis 14421301 Active 2021 Not Available [facility] 3 07:29:42 Cough 47063194 Active 2021 Not Available [facility] 3 07:29:43 Nasal congestion 36731696 Active 2022 Ray Moreno MD [address], [address], [place], [address] , [facility] 3 16:31:40 Seasonal allergic rhinitis 937541146 Active 2022 Ray Moreno MD [address], [address], [place], [address] , [facility] 3 17:38:01 Lumbar spondylosi s 487377342 Active 2022 Ray Moreno MD [address], [address], [place], [address] , [facility] 3 10:23:15 Sleep apnea 21989641 Active 2022 Ray Moreno MD [address], [place], [address] , [facility] 3 10:26:16 Hypertensi ve disorder 51695205 Active 2022 MD Jairo Dickens [address], [place], [address] , [facility] 3 10:30:36 Pancreatit is 96443729 Active 2022 Ray Moreno MD [address], [place], [address] , [place] [facility] 3 14:14:30 Liver enzymes level above reference range 522309025 Active 2022 Ray Moreno MD [address], [address], [place], [address] , [place] [facility] 3 14:26:53 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 8745529115193 9103 Active 2023 Ray Moreno MD [address], [address], [place], [address] , [place] [facility] 4 12:52:16 Weakness of left facial muscle 264967515 Active 2023 Ray Moreno MD [address], [address], [place], [address] , [place] [facility] 4 12:54:06 Fatigue 16885453 Active 2023 Ray Moreno MD [address], [address], [place], [address] , [place] [facility] 4 14:59:09 COVID-19 450221920 Active 2024 Ray Moreno MD [address], [address], [place], [address] , [place] [facility] 5 09:41:43 Fever with chills 272423190 Active 2024 Ray Moreno MD [address], [place], [address] , [place] [facility] 5 09:42:06 Open wound of left lower leg 5473948702310 9106 Active 2024 Ray Moreno MD [address], [place], [address] , [place] [facility] 5 17:36:38 Open wound of lower limb 02144696 Active 2024 Ray Moreno MD [address], [place], [address] , [employer] [facility] [email or web address] [facility] 5 17:37:18 Ulcer of lower extremity 07753400 Active 2024 Ray Moreno MD [address], [address], [place], [address] , [facility] [employer] [facility] [employer] [facility] 5 17:39:05 Swelling of lower leg 220548667 Active 2024 Ray Moreno MD [address], [address], [place], [address] , [facility] [employer] [facility] [email or web address] [facility] 5 17:41:05 Open wound of lower limb 36939126 Active 2024 Thad Kenny DPM [address], [address], [place], [address] , [facility] [employer] [facility] [email or web address] [facility] 5 14:17:31 Lymphedema of limb 522381246 Active 2024 Thad Kenny DPM [address], [address], [place], [address] , [employer] [facility] [email or web address] [facility] 5 17:38:13 Peripheral venous insufficie ncy 96538532 Active 2024 Thad Kenny DPM [address], [address], [place], [address] , [employer] [facility] [email or web address] [facility] 5 15:36:51 Pruritic rash 65709702 Active 2024 Thad Kenny DPM [address], [address], [place], [address] , [employer] [facility] [email or web address] [facility] 5 12:15:14 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 sm 52929937 Active 2024 Ray Moreno MD [address], [address], [place], [address] , [facility] [employer] [facility] [employer] [facility] 5 16:31:18 Primary hypothyroi dism 78136130 Active 2024 Ray Moreno MD [address], [address], [place], [address] , [facility] 5 17:02:26 Stasis dermatitis 51514163 Active 2024 Ray Moreno MD [address], [address], [place], [address] , [facility] [employer] [facility] 5 17:17:05 Insect bite of lower limb 476708696 Active 2024 Thad Kenny DPM [address], [address], [place], [address] , [facility] [employer] [facility] 14:16:52 Open wound of toe 855340507 Active 2024 Thad Kenny DPM [address], [address], [place], [address] , [facility] [employer] [facility] 09:20:59 Eczema of lower limb 926759773 Active 2024 Ray Moreno MD [address], [address], [place], [address] , [facility] [employer] [facility] 5 17:16:58 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 861882791 Active 2024 Ray Moreno MD [address], [address], [place], [address] , [facility] [employer] [facility] 5 17:19:16 Abnormal gait 09546138 Active 2024 Ray Moreno MD [address], [place], [address] , [facility] [employer] [facility] 5 17:40:46 Ulcer of toe of left foot Active 2024 Thad Kenny DPM [address] [place], [address] , [facility] [employer] [facility] 5 09:02:30 Notes:Ray Moreno MD [phone] [facility] home sleep study 01/02/23 AHI = [...] 5 Wound Care-Podiatry completed Celia Li RN [facility] [email or web address] [facility] 05/25/2025 12:24:51 5 Wound Care-Podiatry completed Celia Li RN [facility] [email or web address] [facility] 05/11/2025 12:39:44 5 Wound Care-Podiatry completed Thad Kenny DPM [address], [address], [place], [address], [facility] [email or web address] [facility] 04/27/2025 13:57:28 5 Wound Care-Podiatry completed Thad Kenny DPM [address], [address], [place], [address], [facility] [email or web address] [facility] 04/21/2025 15:27:03 5 Wound Care-Podiatry completed Celia Li RN [facility] [employer] [facility] 04/13/2025 15:26:01 5 Transitional_C are_Management completed Tanya Moran RN [facility] [email or web address] [facility] 04/12/2025 17:03:42 5 Wound Care-Podiatry completed Thad Kenny DPM [address], [address], [place], [address], [facility] [employer] [facility] [email or web address] [facility] 04/04/2025 09:19:04 5 Wound Care-Podiatry completed Celia Li RN [facility] [email or web address] [facility] 03/23/2025 13:10:00 5 Wound Care-Podiatry completed Celia Li RN [facility] [email or web address] [facility] 03/16/2025 11:32:52 5 Wound Care-Podiatry completed Celia Li RN [facility] [employer] [facility] 03/09/2025 10:07:15 5 Wound Care-Podiatry completed Celia Li RN [facility] [employer] [facility] 03/02/2025 11:48:48 5 Wound Care-Podiatry completed Celia Li RN [facility] [employer] [facility] 02/23/2025 12:01:59 5 Wound Care-Podiatry completed Celia Li RN [facility] [employer] [facility] 02/16/2025 11:40:09 5 Wound Care-Podiatry completed Justice Dave RN [facility] [employer] [facility] 02/09/2025 10:23:16 5 Wound Care-Podiatry completed Thad Kenny DPM [address] [facility], [address], [place], [address], [facility] [employer] [facility] 02/02/2025 13:37:03 5 Wound Care-Podiatry completed Celia Li RN [facility] [employer] [facility] 01/26/2025 15:49:01 5 Wound Care-Podiatry completed Thad Kenny DPM [address] [facility], [address], [place], [address], [facility] [employer] [facility] 01/19/2025 13:31:19 5 Wound Care-Podiatry completed Justice Dave RN [facility] [employer] [facility] 01/17/2025 09:01:39 5 Wound Care-Podiatry completed Celia Li RN [facility] [employer] [facility] 01/05/2025 17:17:17 2 Hernia Surgery completed Not Available [facility] 09/18 07:26:20 Vasectomy completed Not Available [facility] 0 09/18/2022 07:26:20 Imaging Results None recorded. Procedure Notes None recorded. Medical Equipment None Reported. Allergies Allergen ID Allergen Name Allergen Category Reaction Reaction Severity Criticality Documentation Date Start Date Code Code System Note Provider Name and Address Organization Details Recorded Time 45799 peanut allergeni c extract food,medi cation itching mild Not available 09/18/2022 62993 8 RxNorm Not Available [facility] 3 07:34:13 59484 prednison e medicatio n other Not available high 12/28/20242019 8640 RxNorm Hyper glyce hipolito Blood sugar s shoot up to above 800 Tanya Moran RN null, [facility] [employer] [facility] 17:32:35 08915 Betadine medicatio n other severe high 04/12/2025202475 0 RxNorm blist ers, sores Tanya Moran RN null, [facility] [employer] [facility] 17:11:56 00592 prednisol one medicatio n Not available Not available Not available 06/03/20252024 8638 RxNorm Not Available [employer] - prod 09:05:32 58399 iodine medicatio n Not available Not available Not available 06/03/20252024 5933 RxNorm sever e unrec ogniz ed react ion (text : Conta ct Matewan titis , code: 88807 004) [facility] Not Available Location [facility] [employer] - prod 09:05:33 Medications Name [...] oral route as needed for 7 days. 04/265 completed Not Available Not Available Not Available [...] administ ered by the provider 11/25 completed [facility]: [phone] 11-07 Not Available Not Available Not [...] Details Last Updated DateTime 5 175.26 cm 99.1 [degF] 76 /min 18 /min 93 % 125/78 mm[Hg] Celia Li RN [facility] [employer] 5 12:19:47 Date Recorded Body height Body temperature Respiratory rate Heart rate Oxygen saturation Systolic And Diastolic Provider Name and Address Organization Details Last Updated DateTime 5 175.26 cm 98.5 [degF] 18 /min 70 /min 96 % 142/79 mm[Hg] Celia Li RN [facility] [employer] [facility] 5 12:22:02 Date Recorded Body height Body mass index (BMI) Body weight Body temperature Oxygen saturation Heart rate Systolic And Diastolic Provider Name and Address Organization Details Last Updated DateTime 5 175.26 cm 53.6 kg/m2 530569. 03 g 98.1 [degF] 99 % 81 /min 142/80 mm[Hg] Tanya Moran RN [place] [facility] [place] [employer] 5 11:52:08 Social History Question Answer Notes LastModified by Organizat ion Details LastModified Time Tobacco Smoking Status Former Smoker quit in 2017 Not Available [employer] 09/18/2022 07:25:57 Do You Have An Advance Directive? No [id number] Information not available 09/18/2022 Do You Wear A Helmet When Biking? No [id number] Information not available 09/18/2022 What Is Your Level Of Caffeine Consumption? Moderate MIGRATION.70323 [id number] Information not available 09/18/2022 In The 14 Days Before Symptom Onset, Have You Had Close Contact With A Laboratory-confi rmed COVID-19 While That Case Was Ill? No MIGRATION.75787 05422 Information not available 09/18/2022 In The 14 Days Before Symptom Onset, Have You Had Close Contact With A Person Who Is Under Investigation For COVID-19 While That Person Was Ill? No MIGRATION.94646 35210 Information not available 09/18/2022 What Type Of Diet Are You Following? REGULAR MIGRATION.24061 85370 Information not available 09/18/2022 What Is The Highest Grade Or Level Of School You Have Completed Or The Highest Degree You Have Received? [id number] MIGRATION.96729 16497 Information not available 09/18/2022 Have There Been Any Changes To Your Family Or Social Situation? No MIGRATION.72899 76669 Information not available 09/18/2022 When Did You Quit Smoking? 1-5yearssincelastc igarette MIGRATION.60665 62747 Information not available 09/18/2022 Are There Any Guns Present In Your Home? No MIGRATION.65050 40639 Information not available 09/18/2022 Do You Use Insect Repellent Routinely? No MIGRATION.60272 24928 Information not available 09/18/2022 Where Do You Live? [facility] MIGRATION.68010 65744 Information not available 09/18/2022 Do You Have A Medical Power Of Manager Medical Affairs? No MIGRATION.77569 05813 Information not available 09/18/2022 Have You Ever Been Counseled For Unhealthy Alcohol Use? No MIGRATION.67062 22797 Information not available 09/18/2022 Do You Have Any Pets? Yes MIGRATION.81455 41628 Information not available 09/18/2022 What Is Your Relationship Status? MIGRATION.63794 45587 Information not available 09/18/2022 Do You Use Your Seat Belt Or Car Seat Routinely? Yes MIGRATION.96226 81732 Information not available 09/18/2022 Do You Have Smoke And Carbon Monoxide Detectors In Your Home? Yes MIGRATION.77578 76328 Information not available 09/18/2022 Are You Passively Exposed To Smoke? No MIGRATION.12158 52492 Information not available 09/18/2022 Are There Any Smokers In Your House? No MIGRATION.16456 66775 Information not available 09/18/2022 Do You Participate In Social Media? No MIGRATION.89299 13323 Information not available 09/18/2022 Do You Use Sunscreen Routinely? Yes MIGRATION.05839 62184 Information not available 09/18/2022 Has Tobacco Cessation Counseling Been Provided? No MIGRATION.94864 42307 Information not available 09/18/2022 Have You Recently Traveled Abroad? No MIGRATION.65221 45413 Information not available 09/18/2022 Are You Currently In School? No MIGRATION.75858 87438 Information not available 09/18/2022 Do You Have Any Dietary Restrictions? No MIGRATION.82817 72217 Information not available 09/18/2022 Sex: Male Functional Status Question Answer Note LastModified by Organizat ion Details LastModified Time Do you or have you ever used any other forms of tobacco or nicotine? No MIGRATION.57033271 26 Information not available 09/18/2022 What is your level of alcohol consumption? None MIGRATION.00633996 26 Information not available 09/18/2022 What is your exercise level? Occasional MIGRATION.06605602 26 Information not available 09/18/2022 Mental Status None recorded. Family History Relationship Description Onset Age of this Age Resolved Age Notes LastModified by Organization Details LastModified Time Sister Hypertensive disorder MIGRATION.678 [id number] Not available 09/18/2022 07:26:21 Maternal Grandfather Malignant neoplasm of prostate MIGRATION.351 [id number] Not available 09/18/2022 07:26:21 Mother Malignant neoplasm of breast MIGRATION.353 [id number] Not available 09/18/2022 07:26:21 Medical History Condition [...] HAVE YOU BEEN HOSPITALIZED OR SEEN IN [facility] IN THE PAST YEAR ? Y [...] Recorded Time HPV9 09/10/2021 completed Not Available [facility] 09/18/2022 07:34:06 Influenza, split virus, quadrivalent, PF 05/16/2020 completed Not Available [facility] 07:34:07 HPV9 05/16/2020 completed Not Available [facility] 09/18/2022 07:34:07 Tdap 09/16/2019 completed Not Available [facility] 09/18/2022 07:34:07 HPV9 12/18/2022 completed Karon Arredondo RN null, [place] [employer] [facility] 12/18/2022 12:40:48 Influenza, split virus, trivalent, PF 07/01/2024 completed Tanya Moran RN null, [place] [employer] [facility] 07/02/2024 10:32:24 Past Encounters Encounter ID Performer Location Encounter Start Date Encounter Closed Date Diagnosis/Indication Diagnosis SNOMED-CT Code Diagnosis ICD10 Code Diagnosis IMO Codes Diagnosis Note [id number] Ray Moreno MD [address] [address] 1 05/30/2021 00:00:00 05/30/2021 09:39:10 [id number] Ray Moreno MD [address] [address] 1 08/29/2021 00:00:00 08/29/2021 16:10:30 [id number] Dale Valle MD [facility] Urology [address] [place] [address] 1 08/31/2021 00:00:00 08/31/2021 16:45:09 [id number] Ray Moreno MD [address] [address] 09/10/2021 00:00:00 09/10/2021 10:47:39 [id number] Dale Valle MD [facility] Urology [address] [place] [address] 1 09/14/2021 00:00:00 09/14/2021 16:30:56 [id number] Gabriel Boyd MD [facility] Ortho [place] [address] [facility] [address] [place] [address] 09/24/2021 00:00:00 09/24/2021 11:16:24 [id number] Ray Moreno MD [facility] [address] [place] [address] 1 09/24/2021 00:00:00 09/24/2021 17:16:31 [id number] Corey betts MD [facility] General Surgery [address] [facility], [address] [address] 09/25/2021 00:00:00 09/25/2021 14:37:28 [id number] Dale Valle MD [facility] Urology [address] [address] 1 10/03/2021 00:00:00 10/26/2021 16:02:45 [id number] Corey betts MD [facility] General Surgery [address] [address] 1 11/15/2021 00:00:00 11/15/2021 12:45:39 [id number] Ray Moreno MD [address] [address] 1 11/19/2021 00:00:00 11/19/2021 14:43:53 [id number] Ray Moreno MD [address] [address] 1 11/25/2022 17:20:45 11/25/2022 17:42:43 Bronchitis 62400489 J40 Cough 02653672 R05.9 Nasal congestion 6809998 0 R09.81 Morbid obesity 777049091 E66.01 Seasonal a llergic rhinitis 702197827 J30.2 [id number] Ray Moreno MD [address] [address] 1 12/18/2022 10:02:04 12/18/2022 10:51:34 Adult health examination 606351616 Z00.00 Anemia 815316753 D64.9 History of diabetes mellitus 754913455 Z86.39 Morbid obesity 519701585 E66.01 Vitamin D deficiency 347 86965 E55.[address] 669401052 Z76.89 Lumbar spondylosis 85915 0009 M47.896 Sleep apnea 96223164 G47 .30 Active or passive immunization 354127892 Z23 Hypertensive disorder 38 409227 I10 [id number] Ray Moreno MD [place] [address] 1 12/31/2022 10:26:23 12/31/2022 11:05:55 Anemia 090595907 D64.9 History of diabetes mellitus 725350166 Z86.39 Morbid obesity 272442379 E66.01 Vitamin D deficiency 347 64690 E55.9 Lumbar spondylosis 60552 0009 M47.896 Sleep apnea 74479851 G47 .30 Hypertensive disorder 38 546264 I10 Pain in ri t sacroiliac joint 7340835526 3447499 M53.3 [id number] Ray Moreno MD [place] [address] 1 02/25/2023 11:33:39 02/25/2023 12:01:11 History of diabetes mellitus 312515783 Z86.39 Morbid obesity 378692359 E66.01 Hypertensive disorder 38 574729 I10 [id number] Ray Moreno MD [address] [address] 1 06/17/2023 14:00:29 06/17/2023 14:30:04 Hypertensive disorder 57678167 I10 History of diabetes mellitus 277668618 Z86.39 Morbid obesity 306819275 E66.01 Hospital i npatient stay within past 30 days 3373001519 106 Z76.89 Pancreatitis 47707593 K8 5.90 Liver enzy mes level above reference range 983671325 R74.01 Ex-smoker 9171292 Z87.89 1 [id number] Ray Moreno MD [address] [address] 1 05/24/2024 12:11:51 05/24/2024 13:58:04 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 9518936883 0328829 G51.0 Morbid obesity 015371776 E66.01 Weakness o f left facial muscle 574235679 R29.443 [id number] Ray Moreno MD [address] [address] 1 07/01/2024 14:32:31 07/01/2024 15:12:40 Liver enzymes level above reference range 094283473 R74.01 Hypertensive disorder 38 133898 I10 History of diabetes mellitus 158901289 Z86.39 Morbid obesity 135015694 E66.01 Ex-smoker 2678772 Z87.89 1 Adult [facility] th examination 373618284 Z00.00 Vitamin D deficiency 347 22179 E55.9 Weakness o f left facial muscle 955515870 R29.810 Administra tion of influenza vaccine 22875717 Z23 Fatigue 79006259 R53.83 [id number] Ray Moreno MD [address] [address] 1 08/17/2024 17:26:50 08/17/2024 17:56:15 Exposure to Influenza A virus subtype H1N1 352781132 Z20.828 Nasal congestion 3355797 0 R09.81 Cough 97703829 R05.9 Fatigue 13933784 R53.83 [id number] Ray Moreno MD [address] [address] 1 09/06/2024 09:35:38 09/06/2024 10:06:34 COVID-19 757887665 U07.1 Cough 27529743 R05.9 Fever with chills 801914 006 R50.9 Fatigue 94050872 R53.83 [id number] Ray Moreno MD [address] [address] 1 12/28/2024 17:11:22 12/28/2024 18:00:43 Open wound of left lower leg 6559151745 1086007 S81.802A 5440549 Open wound of lower limb 90637614 S81.801A 07771157 Ulcer of l ower extremity 50994831 L97.912 L97.922 71342197 Swelling of lower leg 44 0091314 M79.89 1906631206 Morbid obesity 280777773 E66.01 94908 History of diabetes mellitus 719846168 Z86.39 [id number] Thad Kenny DPM [facility] [address] [place] [address] 01/05/2025 15:45:14 01/05/2025 17:41:02 Open wound of lower limb 93136496 S81.801A S81.802A 7988925116 educated on wound careEducat ed on compressio nCultures orderedFol low-up in 2 weeks- multilayer compressio n dressings applied bilateral with Profore Lymphedema of limb 31491 0002 I89.0 4632738 as above [id number] Thad Kenny DPM [facility] [address] [place] [address] 01/12/2025 10:55:42 01/17/2025 10:28:08 [id number] Ray Moreno MD [facility] [address] [address] 01/13/2025 16:01:28 01/13/2025 16:46:22 Open wound of left lower leg 3857681404 8078437 S81.802A 1389413 Open wound of lower limb 89845409 S81.801A 16171627 Ulcer of l ower extremity 12648484 L97.912 L97.922 80269605 Swelling of lower leg 44 4643640 M79.89 4634130928 Morbid obesity 148372972 E66.01 64338 History of diabetes mellitus 762178575 Z86.39 [id number] [facility] [address] [place] [address] 01/19/2025 11:46:16 01/19/2025 14:15:13 Open wound of lower limb 52858046 S81.801D S81.802D 7875642265 continue daily wound careNew compressio n dressings with bilateral Profore is applied to lower extremitie sVenous ultrasound reviewed negative for DVTfollow- up 1 week for continued wound care Swelling o f bilateral lower limbs 593384135 M79.89 Secondary to above [id number] Thad Kenny DPM [facility] [address] [place] [address] 01/26/2025 14:49:54 01/31/2025 14:22:25 Open wound of lower limb 83625265 S81.801D S81.802D 0439173189 continue daily wound careNew compressio n dressings with bilateral Profore is applied to lower extremitie sVenous ultrasound reviewed negative for DVTfollow- up 1 week for continued wound care Swelling o f bilateral lower limbs 417085757 M79.89 Secondary to above Peripheral venous insufficiency 28546768 I87.2 87546 [id number] Thad Kenny DPM [facility] [address] [place] [address] 02/02/2025 12:03:45 02/02/2025 16:24:27 Open wound of lower limb 89148102 S81.801D S81.802D 9917309770 continue daily wound careNew compressio n dressings with bilateral Profore is applied to lower extremitie sVenous ultrasound reviewed negative for DVTfollow- up 1 week for continued wound care Swelling o f bilateral lower limbs 657811159 M79.89 Secondary to above Peripheral venous insufficiency 52993223 I87.2 54025 continue chronic compressio nfollow-up with vascular [id number] Thad Kenny DPM [facility] [address] [place] [address] 02/09/2025 10:05:30 02/09/2025 17:07:38 Open wound of lower limb 15901553 S81.801D S81.802D 7740700103 continue daily wound careNew compressio n dressings with bilateral Profore is applied to lower extremitie sVenous ultrasound reviewed negative for DVTfollow- up 1 week for continued wound care Swelling o f bilateral lower limbs 376323968 M79.89 Secondary to above Peripheral venous insufficiency 97666481 I87.2 85083 continue chronic compressio nfollow-up with vascular [id number] [facility] [address] [place] [address] 02/16/2025 11:25:35 02/16/2025 15:16:34 Open wound of lower limb 60659928 S81.801D S81.802D 5558846401 continue daily wound careNew compressio n dressings with bilateral Profore is applied to lower extremitie sVenous ultrasound reviewed negative for DVTfollow- up 1 week for Nurse visit and 2 weeks for doctor visits Swelling o f bilateral lower limbs 712244230 M79.89 Secondary to above Peripheral venous insufficiency 26029927 I87.2 46108 continue chronic compressio nfollow-up with vascular [id number] Ray Moreno MD [facility] [address] [address] 02/17/2025 08:39:38 02/17/2025 10:01:33 [id number] [facility] [address] [place] [address] 02/23/2025 10:59:39 02/26/2025 04:03:15 [id number] [facility] [address] [place] [address] 03/02/2025 11:27:04 03/02/2025 13:48:36 Open wound of lower limb 99190763 S81.801D S81.802D 8559711236 continue daily wound careNew compressio n dressings with bilateral Profore is applied to lower extremitie sVenous ultrasound reviewed negative for DVTfollow- up 1 week for Nurse visit and 2 weeks for doctor visits Swelling o f bilateral lower limbs 240126259 M79.89 Secondary to above Peripheral venous insufficiency 48155094 I87.2 56554 continue chronic compressio nfollow-up with vascular Pruritic rash 15126894 L 28.2 996414 bilateral feet [id number] Thad Kenny DPM [facility] [address] [place] [address] 03/09/2025 09:54:18 03/09/2025 14:57:21 Open wound of lower limb 31091363 S81.801D S81.802D 2734306441 continue daily wound careNew compressio n dressings with bilateral Profore is applied to lower extremitie sVenous ultrasound reviewed negative for DVTfollow- up 1 week Swelling o f bilateral lower limbs 202297854 M79.89 Secondary to above Peripheral venous insufficiency 52277640 I87.2 01018 continue chronic compressio nfollow-up with vascular Pruritic rash 92976270 L 28.2 754337 bilateral feet [id number] Ray Moreno MD [facility] [address] [address] 03/09/2025 16:47:13 03/09/2025 17:13:43 Liver enzymes level above reference range 683662147 R74.01 Improved Hypertensive disorder 38 858778 I10 History of diabetes mellitus 800299854 Z86.39 Morbid obesity 393275771 E66.01 Vitamin D deficiency 347 76035 E55.9 Weakness o f left facial muscle 523297393 R29.810 Fatigue 17266006 R53.83 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sm 407071 06 E29.1 34534659 Primary hypothyroidism 29168075 E03.9 27748 Anemia 236164721 D64.9 4652777 Ex-cigarette smoker 2810 11018 Z87.891 657768 Stasis dermatitis 301602 05 I87.2 24360150 B/l legs [id number] Thad Kenny DPM [facility] [address] [place] [address] 03/16/2025 11:01:43 03/16/2025 17:01:40 Open wound of lower limb 25033282 S81.801D S81.802D 3161937775 two wounds- right lower legNew compressio n dressings with right Profore is applied to lower extremitie sTubigrip applied left lower legVenous ultrasound reviewed negative for DVTfollow- up 1 week Peripheral venous insufficiency 34675641 I87.2 73187 continue chronic compressio nfollow-up with vascular Pruritic rash 09796882 L 28.2 420183 bilateral feet- resolving [id number] Thad Kenny DPM [facility] [address] [place] [address] 03/23/2025 12:31:42 03/23/2025 17:19:50 Open wound of lower limb 91635164 S81.801D S81.802D 7701163514 two wounds- right lower legNew compressio n dressings with right Profore is applied to lower extremitie sTubigrip applied left lower legVenous ultrasound reviewed negative for DVTfollow- up 1 week Peripheral venous insufficiency 96289299 I87.2 26763 continue chronic compressio nfollow-up with vascular Insect bit e of lower limb 070321882 S80.869D W57.XXXD 96985730 bilateral lower legsPET and house has been treated [id number] Thad Kenny DPM [facility] [address] [place] [address] 03/30/2025 14:25:49 04/04/2025 09:30:28 Open wound of lower limb 62334431 S81.801D S81.802D 5485419265 New compressio n dressings with right Profore is applied to lower extremitie sTubigrip applied left lower legVenous ultrasound reviewed negative for DVTfollow- up 1 week Peripheral venous insufficiency 65602601 I87.2 98276 continue chronic compressio nfollow-up with vascular Insect bit e of lower limb 799477781 S80.869D W57.XXXD 02537677 bilateral lower legsPET and house has been treated Open wound of toe 231003 002 S91.109A 77804482 left toesdaily dressingsm onitor for signs of infection at present seek medical attention immediatel y [id number] Ray Moreno MD [facility] [address] [address] 04/12/2025 16:59:42 04/13/2025 09:39:09 Transition of care 2178088655 105 Z75.8 Post-disch arge follow-up 079686136 Z09 835338 Eczema of lower limb 788 714573 L30.9 32686747 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 118482099 E09.9 T38.0X5D 9811397983 Morbid obesity 666574873 E66.01 16439 Abnormal gait 17943999 R 26.89 08110652 [id number] [facility] [address] [place] [address] 04/13/2025 14:10:54 04/14/2025 17:53:50 Open wound of lower limb 15678932 S81.801D S81.802D 1792803767 New compressio n dressings with right Profore is applied to lower extremitie sTubigrip applied left lower legVenous ultrasound reviewed negative for DVTfollow- up 1 week Peripheral venous insufficiency 65113097 I87.2 57827 continue chronic compressio nfollow-up with vascular Insect bit e of lower limb 313914137 S80.869D W57.XXXD 90377039 bilateral lower legsPET and house has been treated Ulcer of t oe of left foot 3391917638 9461200 L97.522 74961796 multiple- toesdaily dressingsm onitor for signs of infectionf ollow-up on week [id number] [facility] [address] [place] [address] 04/20/2025 12:05:06 04/21/2025 15:47:45 Open wound of lower limb 34186971 S81.801D S81.802D 6120860981 New compressio n dressings with bilateral Profore is applied to lower extremitie sTubigrip applied left lower legVenous ultrasound reviewed negative for DVTfollow- up 1 week Ulcer of t oe of left foot 5638967246 5821667 L97.522 71088199 multiple- toesdaily dressingsm onitor for signs of infectionf ollow-up on week Peripheral venous insufficiency 93004135 I87.2 86165 continue chronic compressio nfollow-up with vascular [id number] [facility] [address] [place] [address] 04/27/2025 11:55:42 04/27/2025 14:24:22 Open wound of lower limb 50412595 S81.801D S81.802D 5998509703 resolved Ulcer of t oe of left foot 0522341372 7116034 L97.522 34703976 multiple- toesdaily dressingsm onitor for signs of infectionf ollow-up on week Peripheral venous insufficiency 85412476 I87.2 96335 continue chronic compressio nfollow-up with vascular [id number] Thad Kenny DPM [facility] [address] [place] [address] 05/11/2025 12:08:02 05/11/2025 14:19:43 Ulcer of toe of left foot 1468650914 7221349 L97.522 66696324 3 woundsdail y dressingsm onitor for signs of infectionf ollow-up on week Peripheral venous insufficiency 76949839 I87.2 78512 continue chronic compressio nfollow-up with vascular [id number] Ray Moreno MD [address] [address] 05/18/2025 09:19:01 05/18/2025 09:43:37 [id number] Thad Kenny DPM [facility] [address] [place] [address] 05/25/2025 11:59:24 06/01/2025 14:59:23 Ulcer of toe of left foot 9028742616 2731480 L97.522 85009044 Healedfoll ow-up as needed Peripheral venous insufficiency 24974001 I87.2 51994 continue chronic compressio nfollow-up with vascular [id number] Ray Moreno MD [address] [address] 06/03/2025 09:04:28 06/03/2025 09:26:11 [id number] Ray Moreno MD [address] [address] 06/06/2025 11:43:59 06/06/2025 12:14:07 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sm 49573519 E29.1 08208613 Liver enzy mes level above reference range 105104033 R74.01 Improved Hypertensive disorder 38 172094 I10 History of diabetes mellitus 483200081 Z86.39 Morbid obesity 125516700 E66.01 Ex-cigarette smoker 2810 67473 Z87.891 974011 Vitamin D deficiency 347 41800 E55.9 Weakness o f left facial muscle 090240265 R29.810 Fatigue 94648140 R53.83 Primary hypothyroidism 00064572 E03.9 74011 Anemia 409391573 D64.9 8088575 Stasis dermatitis 456499 05 I87.2 31404962 B/l legs Health Concerns Section Related Observation LastModified by Organization Detai ls LastModified Time None Recorded Concern Status LastModified by Organization Details LastModified Time None Recorded Advance Directives Directive N: Payers Insurance Date Sequence Insurance Name Policy Number Policy Leonard Covered Member ID Leonard Member ID Guarantor Name 05/25/2025 1 [id number] Zheng Carrizales [id number] Zheng Carrizales 06/03/2025 1 [place] [id number] Zheng Carrizales [id number] Zheng Carrizales Notes Date Note Type [...] or signs of infection. Thad Kenny DPM [address], [place], [place], [address], [employer] 05/11/2025 14:18:06 05/25/2025 text/html . Patient is a 40-year-old male who returns the office for follow-up on wounds which are completely healed he denies any new complaints. Thad Kenny DPM [address], [address], [place], [address], [employer] 06/01/2025 14:19:00 06/06/2025 text/html Pt is here for f/u on labs and chronic conditions. Doing overall much better. Denies any new concern. Pt is f/u with wound clinic and vascular doctor for her chronic b/l leg wounds and its all resolved now. Pt is f/u with Bariatric clinic at [place] and he needs to do some wt loss by himself first before they can offer any surgery for him. 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 [facility] to pancreatitis and was seen by GI there and was [facility] So he has stopped taking it.Pt was [facility] from 08/[facility]/19 to 08/23/19 due to Sepsis, acute renal failure, anemia, Pneumonia, rhabdomyolysis & UTI. Pt was seen by Hemat at the hospital and he had bone marrow biopsy done and was also seen by Nephro. Ray Moreno MD [address] [place] [address], [facility] [address], [place], [address], [place] - [facility] 06/06/2025 12:13:18
--- OUTSIDE RECORDS SUMMARY | 2025-06-15 01:23 | XMS_ITS | Encounter Summary ---
Author Organization [facility] Address [address] [place] [address] Care Team Providers Care Coffee Sampler Name Role Phone Ray Moreno MD Primary Care Provider Encounter Details Date Type Department Care Team (Late st Contact Info) Description 08/20/2019 Lab Requisition [facility] Care Pathology Lab [address] [place] [address] Tenzin Berry MD [id number] [id number] Social History Tobacco Use Types Packs/Day Years Used Date Smoking Tobacco: Never Assessed Sex and Gender Information Value Date Recorded Sex Assigned at Male 02/14/2024 3:53 PM CDT Legal Sex Male 3:47 PM MEDICAL MASSAGE THERAPIST Gender Identity Male 02/14/2024 3:53 PM CDT Sexual Orientation Straight 02/14/2024 3: 53 PM CDT documented as of this encounter Plan of Treatment Not on file documented as of this encounter Procedures Procedure Name Priority Date/Time Associated Diagnosis Comments BONE MARROW BIOPSY (STL) Routine 08/20/2019 8:21 AM MEDICAL MASSAGE THERAPIST documented in this encounter Results * BONE MARROW BIOPSY (STL) (08/20/2019 8:21 AM MEDICAL MASSAGE THERAPIST) Case Report Bone Marrow Patholog y Report Case: [id number] Authorizing Provider: Tenzin Berry MD Collected: 08/20/2019 08:21 AM Ordering Location: [facility] Received: 08/20/2019 08:22 AM Pathologist: Patricia Irwin MD Specimens: A) - Bone Marrow Core, AB20-5 B) - Bone Marrow Clot, AB20-5 C) - Blood Peripheral, AB20-5 D) - Bone Marrow Aspirate, AB20-5 08/20/2019 6:42 PM [facility] Final Diagnosis Bone marrow, aspirate, clot section, and core biopsy: - Normocellular marrow with maturing trilineage hematopoiesis. - No evidence of lymphoma or high-grade myeloid neoplasm. - See description. Peripheral blood smear: - Hypochromic, normocytic anemia. - See description. 08/20/2019 6:42 PM [facility] at 1842 MEDICAL MASSAGE THERAPIST AP Comment Overall, the bone marrow specimen is normocellular for age with maturing trilineage hematopoiesis and no evidence of lymphoma, a high-grade myeloid neoplasm, or significant dyspoiesis. Correlation with clinical findings and relevant cytogenetic/molecular testing is required. KR/MM 08/20/2019 6:42 PM [facility] Peripheral [...] normal. Platelet morphology: normal. 08/20/2019 6:42 PM [facility] Bone Marrow Aspirate Differential count (200 cells): 1% blasts, 61% maturing myeloid precursors, 25% erythroid progenitors, 1% monocytes, 1% eosinophils, 10% lymphocytes, and 1% plasma cells. Specimen quality: suboptimal. Spicules: absent. Trilineage Hematopoiesis: present. Myeloid:Erythroid ratio: 2.6:1. Myeloid Maturation: Normal. Erythroid Maturation: Normal. Megakaryocyte morphology: too few to adequately assess. 08/20/2019 6:42 PM [facility] Bone [...] performed on the core biopsy in the [facility] Department of Pathology, with appropriately reactive control, to assess for immaturity given the aspiculate aspirate smears and highlights no increase in blasts (less than 5% of the marrow cellularity). 08/20/2019 6:42 PM [facility] Flow Cytometry Summary Concurrent flow cytometry ([id number]) shows no evidence of non-Hodgkin lymphoma or high-grade myeloid neoplasm. 08/20/2019 6:42 PM [facility] Clinical History Anemia. 08/20/2019 6:42 PM [facility] Materials Received Received are 17 slides and 3 blocks labeled as AB20-5 along with the outside pathology report. [place] [address]. All materials are returned to the referring institution, along with a copy of our final report. 08/20/2019 6:42 PM [facility] Disclaimer The performance characteristics of all immunohistochemical and indirect immunofluorescence stains (if any) cited in this report were determined by the Histopathology Laboratory of [facility]. Some of these tests were developed [...] the attending (teaching) pathologist. 08/20/2019 6:42 PM [facility] Embedded Images 08/20/2019 6:42 PM [facility] Pathology/Cytology SPECIMEN FROM BONE MARROW OBTAINED BY ASPIRATION / Unknown 08/20/2019 8:21 AM MEDICAL MASSAGE THERAPIST 08/20/2019 8:22 AM MEDICAL MASSAGE THERAPIST Miscellaneous samples (specimen) BONE MARROW CLOT SPECIMEN / Unknown 08/20/2019 8:21 AM MEDICAL MASSAGE THERAPIST 08/20/2019 8:22 AM MEDICAL MASSAGE THERAPIST Miscellaneous samples (specimen) PERIPHERAL BLOOD / Unknown 08/20/2019 8:21 AM MEDICAL MASSAGE THERAPIST 08/20/2019 8:22 AM MEDICAL MASSAGE THERAPIST Miscellaneous samples (specimen) SPECIMEN FROM BONE MARROW OBTAINED BY ASPIRATION / Unknown 08/20/2019 8:21 AM MEDICAL MASSAGE THERAPIST 08/20/2019 8:22 AM MEDICAL MASSAGE THERAPIST us Tenzin Berry MD LAB - PATHOLOGY/CYTOLOGY ORDER DARCY Final Result Performing Organization Address City/State/[facility] Co de Phone Number [facility] [address] [phone] documented in this encounter Visit Diagnoses Not on filedocumented in this encounter Care Teams Coffee Sampler Relationship Specialty Start Date End Date Ray Moreno MD [address] [place] [phone] PCP - General Family Medicine 05/28/23 documented as of this encounter
--- NOTE | 2025-06-15 01:43 | ED.SKABFB ---
HPI - Skin/Abscess/Foreign Bdy General Chief complaint: Extremity Problem,Nontraumatic <Marcela Carias APRN - Last Filed: 06/15/25 04:34> Stated complaint: swollen legs <Marcela Carias APRN - Last Filed: 06/15/25 04:34> Time Seen by Provider: 06/15/25 00:51 <Marcela Carias APRN - Last Filed: 06/15/25 04:34> History of Present Illness HPI narrative: Patient is a 40-year-old male who presents to the ER with complaints of lower extremity burning, swelling and rash. He reports he noticed spots on his legs this morning but they have since returned ?purple.Patient endorses burning up near his right upper thigh and left lower calf. He also reports he has started noticing a rash in his groin/lower abdomen and left upper arm. Patient denies itching to the sites. He reports this morning he noticed an open site on the back his right leg that started ?leaking yellow fluid. Patient endorses a history of diabetes, cellulitis, acute kidney injury, and high blood pressure. He reports he has not been on antibiotics since March when he was hospitalized at this facility. <Marcela Carias APRN - Last Filed: 06/15/25 04:34> Related Data Home medications: Home Medications ?Medication ?Instructions ?Recorded ?Confirmed ?Last Taken ?Type cyclobenzaprine 5 mg tablet 10 mg PO HS PRN muscle spasm 05/24/23 06/15/25 04/04/25 History ergocalciferol (vitamin D2) 50,000 50,000 unit PO WEEKLY 05/24/23 06/15/25 06/10/25 History unit tablet 50,000 units ferrous sulfate 325 mg (65 mg 325 mg PO DAILY 04/05/25 06/15/25 06/14/25 14:00 History iron) tablet (FeroSul) 325 mg levothyroxine 25 mcg tablet 25 mcg PO DAILY@0630 04/05/25 06/15/25 06/14/25 09:30 History 25 mcg testosterone cypionate 200 mg/mL 200 mg IM .biweekly 04/05/25 06/15/25 06/03/25 History intramuscular oil <Marcela Carias APRN - Last Filed: 06/15/25 04:34> Allergies/Adverse reactions: Allergies Allergy/AdvReac Type Severity Reaction Status Date / Time cefepime Allergy Intermediate Rash Verified 06/15/25 06:25 peanut Allergy Unknown Itching Verified 06/15/25 06:25 iodine AdvReac Intermediate Blister Verified 06/15/25 06:25 <Marcela Carias APRN - Last Filed: 06/15/25 04:34> Review of Systems Review of Systems: All systems reviewed & are unremarkable except as noted in HPI and below <Marcela Carias APRN - Last Filed: 06/15/25 04:34> [facility] Past Medical History Medical History: Medical History History of acute pancreatitis (2022) Hypertriglyceridemia Steroid-induced diabetes mellitus (2019) As part of treatment for COVID in 2019 (A1c of 9.6) and in August 2024 (glucoses of 600) Atrial fibrillation with RVR 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 He denies alcohol or drug use. Lives at home with his 2 sons. He is . Children currently staying with his ex-. Patient is a full code. He nominates his ex- Karla be the individual would make medical decisions for him if he is unable. Smoking packs per day: 1 Smoking cigarettes per day: 20.0 Years smoked: 20 Smoking pack-years: 20.00 Smoking status: Former smoker Second hand tobacco smoke exposure: Yes Alcohol intake: never Drinks per week: 0 Substance use: never Lack of Transportation: No Lack of Food: Never True Current Housing: I Have Housing Concerned About Future Housing: No Difficulty Paying Gas/Electric Bills: No Difficulty Paying for Meds: No Currently Unemployed: No Education: Bachelor's Degree Difficulty w/ Childcare or Family Care: No Gender identity (if verbalized by the patient): Male Spiritual care concerns: No Agree to blood products: Yes <Marcela Carias APRN - Last Filed: 06/15/25 04:34> Exam Narrative: GENERAL: Well appearing, obese, non-toxic, in no acute distress. HEAD: Normocephalic, atraumatic. NECK: Supple. No adenopathy, no masses. RESPIRATORY: Airway patent, respirations nonlabored. Clear to auscultation bilaterally, no rales, rhonchi, wheezing. CARDIOVASCULAR: Regular rate and rhythm without murmurs, rubs, or gallops. Peripheral pulses 2+ and equal bilaterally. ABDOMINAL: Soft, nontender, nondistended, no hepatosplenomegaly. Normoactive BS. MUSCULOSKELETAL: Moves all extremities. Strength/ROM intact without gross deformities. SKIN: Warm, dry, normal color. Palpable purpura bilateral lower extremities with most dense areas on LLE calf, travels up to lower abdomen and present on L upper arm, mild weeping to one spot on posterior RLE NEURO: A&O X3. Speech clear. Cranial nerves II-XII intact. No ataxic movements. PSYCHIATRIC: Appropriate mood and affect. Normal interaction. <Marcela Carias, WIND TURBINE ENGINEER - Last Filed: 06/15/25 04:34> Course BOOK COVERER/PA Physician Supervision This visit was performed by both a physician and an Advanced Practice Provider. I performed all aspects of the Medical Decision Making as documented. <Shant Zaidi MD - Last Filed: 06/15/25 06:49> Vital Signs Vital signs: Vital Signs Temperature 36.9 C 06/14/25 22:55 Pulse Rate 100 06/14/25 22:55 Respiratory Rate 18 06/14/25 22:55 Blood Pressure 154/94 H 06/14/25 22:55 Pulse Oximetry 98 06/14/25 22:55 Oxygen Delivery Room Air 06/14/25 22:55 Temperature 36.0 C L 06/15/25 06:28 Pulse Rate 68 06/15/25 06:28 Respiratory Rate 16 06/15/25 06:28 Blood Pressure 125/62 06/15/25 06:28 Pulse Oximetry 97 06/15/25 06:28 Oxygen Delivery Room Air 06/14/25 22:55 <Marcela Carias APRN - Last Filed: 06/15/25 04:34> Vital Signs Temperature 36.9 C 06/14/25 22:55 Pulse Rate 100 06/14/25 22:55 Respiratory Rate 18 06/14/25 22:55 Blood Pressure 154/94 H 06/14/25 22:55 Pulse Oximetry 98 06/14/25 22:55 Oxygen Delivery Room Air 06/14/25 22:55 Temperature 36.0 C L 06/15/25 06:28 Pulse Rate 68 06/15/25 06:28 Respiratory Rate 16 06/15/25 06:28 Blood Pressure 125/62 06/15/25 06:28 Pulse Oximetry 97 06/15/25 06:28 Oxygen Delivery Room Air 06/14/25 22:55 <Shant Zaidi MD - Last Filed: 06/15/25 06:49> MDM - Skin/Abscess/Foreign Bdy MDM Narrative Medical decision making narrative: Patient is a 40-year-old male who presents to the ER with complaints of lower extremity burning, swelling and rash. He reports he noticed spots on his legs this morning but they have since returned ?purple. Patient endorses burning up near his right upper thigh and left lower calf. He also reports he has started noticing a rash in his groin/lower abdomen and left upper arm. Patient denies itching to the sites. He reports this morning he noticed an open site on the back his right leg that started ?leaking yellow fluid. Patient endorses a history of diabetes, cellulitis, acute kidney injury, and high blood pressure. He reports he has not been on antibiotics since March when he was hospitalized at this facility. Labs Ordered: CBC, CMP, UA, PTT, INR, sodium urine random, creatinine urine, calcium creatinine ratio urine, total protein urine, CK Imaging Ordered: Renal ultrasound bilaterally (per Nephrology request) Medications Ordered: Morphine 4 mg IV, Dilaudid 0.5 mg IV, 1 L normal saline IV bolus x2 Results: Patient's platelets were 166. His PTT is 14.0 seconds, APTT is 30.9 seconds, INR is 1.1. Patient's BUN is 23, creatinine 2.18, GFR 33. Patient's urinalysis indicates 3+ urine, trace glucose, trace ketones, 3+ blood, 1+ bilirubin, 1+ leukocytes, 51-100 rbcs, 21-50 wbcs Diagnosis: palpable purpura, LEONEL Consults: 0400- Spoke with nephrology, Dr. Feldman, who would like pt to be admitted to the hospital. He would like further urine studies performed along with a kidney ultrasound. Dr. Feldman will consult on pt tomorrow. MDM: Pt will receive a dose of Prednisone 20mg (per up-to-date guidelines). Results of imaging and lab work shared with patient. It was advised patient be admitted to the hospital for further evaluation and treatment. Patient verbalized understanding and are in agreement with plan. 0415- Spoke with hospitalist, Dr. Chadwick, who was in agreement with plan for admission. She requests an order for high dose sliding scale insulin, as pt's blood sugars will be elevated after steroid administration. Pt will also be provided with an order for pain medication PRN, so she requests pt have an order for Narcan PRN also. <Marcela Carias WIND TURBINE ENGINEER - Last Filed: 06/15/25 04:34> Differential Diagnosis Differential diagnosis: Likely urticaria, cellulitis, contact dermatitis and other (palpable purpura) <Marcela Carias WIND TURBINE ENGINEER - Last Filed: 06/15/25 04:34> Lab Data Attestation: I reviewed the patient's lab results. <Marcela Carias APRN - Last Filed: 06/15/25 04:34> Result diagrams: 06/15/25 01:33 06/15/25 01:33 <Marcela Carias APRN - Last Filed: 06/15/25 04:34> Labs: Lab Results 06/15/25 06/15/25 Range/Units 01:33 01:41 WBC 8.8 (4.5-10.0) K/mm3 RBC 4.96 (4.6-6.20) M/mm3 Hgb 13.0 L (14.0-18.0) g/dL Hct 41.7 L (42.0-52.0) % MCV 84.1 (80-100) fl MCH 26.2 (26-34) pg MCHC 31.2 L (32-36) g/dl RDW 15.9 H (11.5-14.5) % Plt Count 166 (150-375) k/mm3 MPV 11.5 H (7.4-10.4) fl Immature Gran % (Auto) 0.2 (0-0.5) % Neut % (Auto) 74.6 H (45.5-73.1) % Lymph % (Auto) 15.4 L (18.3-44.2) % Cameron % (Auto) 8.7 H (2.6-8.5) % Eos % (Auto) 0.8 (0-4.4) % Baso % (Auto) 0.3 (0.2-1.2) % Lymph # (Auto) 1.36 (0.9-3.2) K/mm3 Cameron # (Auto) 0.8 H (0.1-0.6) K/mm3 Eos # (Auto) 0.1 (0-0.3) K/mm3 Baso # (Auto) 0.0 (0.0-0.1) K/mm3 Abs Immat Gran (auto) 0.02 (0.00-0.031) K/mm3 Absolute Neuts (auto) 6.6 (1.3-6.7) K/mm3 Absolute Nucleated RBC 0.000 (0.0-0.012) K/mm3 Nucleated RBC % 0.0 (0.0-0.2) % % Immature Plt Fraction 6.4 (0.9-11.2) % PT 14.0 (11.1-14.7) Seconds INR 1.1 APTT 30.9 (22.3-36.8) Seconds Sodium 136 L (137-145) mmol/L Potassium 3.5 (3.4-5.0) mmol/L Chloride 102 (98-107) mmol/L Carbon Dioxide 27 (22-30) mmol/L Anion Gap 7 (4-12) mmol/L BUN 23 H D (9-20) mg/dL Creatinine 2.18 H (0.7-1.3) mg/dL Estim Creat Clear Calc 62 ml/min Estimated GFR 33 L (59 - ) Glucose 102 (65-110) mg/dL Calcium 8.6 (8.4-10.2) mg/dL Total Bilirubin 0.6 (0.2-1.3) mg/dL AST 24 (17-59) U/L ALT 20 (6-50) U/L Alkaline Phosphatase 65 (38-126) U/L Total Creatine Kinase 67 (55-170) U/L Total Protein 6.9 (6.3-8.2) g/dL Albumin 3.9 (3.5-5.1) g/dL Urine Color Dark yellow (Yellow) Urine Appearance Turbid H (Clear) Urine pH 5.0 (5.0-9.0) Ur Specific [place] 1.022 (1.001-1.035) Urine Protein 3+ H (Negative) mg/dL Urine Glucose (UA) Trace H (Negative) mg/dL Urine Ketones Trace H (Negative) mg/dL Ur Blood (Man) 3+ H (Negative) Urine Nitrate Negative (Negative) Urine Bilirubin 1+ H (Negative) Urine Urobilinogen 1.0 (<2.0) mg/dL Add Ur Microanalysis Reviewed Leukocyte Esterase Rfl 1+ H (Negative) MESSI/UL Urine RBC 51-100 H (0-2) /hpf Urine WBC 21-50 H (0-3) /hpf Ur Squamous Epith Cells Few (Few) /hpf Urine Bacteria Trace /hpf Urine Casts >20 Ur Random Creatinine Cancelled U Random Total Protein 423 mg/dL Ur Random Sodium 49 meq/L Ur Random Calcium Cancelled Urine Creatinine 467.3 mg/dL Calcium/Creat Ratio Cancelled Miscellaneous Test Pending <Marcela Carias, WIND TURBINE ENGINEER - Last Filed: 06/15/25 04:34> Lab Results 06/15/25 06/15/25 Range/Units 01:33 01:41 WBC 8.8 (4.5-10.0) K/mm3 RBC 4.96 (4.6-6.20) M/mm3 Hgb 13.0 L (14.0-18.0) g/dL Hct 41.7 L (42.0-52.0) % MCV 84.1 (80-100) fl MCH 26.2 (26-34) pg MCHC 31.2 L (32-36) g/dl RDW 15.9 H (11.5-14.5) % Plt Count 166 (150-375) k/mm3 MPV 11.5 H (7.4-10.4) fl Immature Gran % (Auto) 0.2 (0-0.5) % Neut % (Auto) 74.6 H (45.5-73.1) % Lymph % (Auto) 15.4 L (18.3-44.2) % Cameron % (Auto) 8.7 H (2.6-8.5) % Eos % (Auto) 0.8 (0-4.4) % Baso % (Auto) 0.3 (0.2-1.2) % Lymph # (Auto) 1.36 (0.9-3.2) K/mm3 Cameron # (Auto) 0.8 H (0.1-0.6) K/mm3 Eos # (Auto) 0.1 (0-0.3) K/mm3 Baso # (Auto) 0.0 (0.0-0.1) K/mm3 Abs Immat Gran (auto) 0.02 (0.00-0.031) K/mm3 Absolute Neuts (auto) 6.6 (1.3-6.7) K/mm3 Absolute Nucleated RBC 0.000 (0.0-0.012) K/mm3 Nucleated RBC % 0.0 (0.0-0.2) % % Immature Plt Fraction 6.4 (0.9-11.2) % PT 14.0 (11.1-14.7) Seconds INR 1.1 APTT 30.9 (22.3-36.8) Seconds Sodium 136 L (137-145) mmol/L Potassium 3.5 (3.4-5.0) mmol/L Chloride 102 (98-107) mmol/L Carbon Dioxide 27 (22-30) mmol/L Anion Gap 7 (4-12) mmol/L BUN 23 H D (9-20) mg/dL Creatinine 2.18 H (0.7-1.3) mg/dL Estim Creat Clear Calc 62 ml/min Estimated GFR 33 L (59 - ) Glucose 102 (65-110) mg/dL Calcium 8.6 (8.4-10.2) mg/dL Total Bilirubin 0.6 (0.2-1.3) mg/dL AST 24 (17-59) U/L ALT 20 (6-50) U/L Alkaline Phosphatase 65 (38-126) U/L Total Creatine Kinase 67 (55-170) U/L Total Protein 6.9 (6.3-8.2) g/dL Albumin 3.9 (3.5-5.1) g/dL Urine Color Dark yellow (Yellow) Urine Appearance Turbid H (Clear) Urine pH 5.0 (5.0-9.0) Ur Specific [place] 1.022 (1.001-1.035) Urine Protein 3+ H (Negative) mg/dL Urine Glucose (UA) Trace H (Negative) mg/dL Urine Ketones Trace H (Negative) mg/dL Ur Blood (Man) 3+ H (Negative) Urine Nitrate Negative (Negative) Urine Bilirubin 1+ H (Negative) Urine Urobilinogen 1.0 (<2.0) mg/dL Add Ur Microanalysis Reviewed Leukocyte Esterase Rfl 1+ H (Negative) MESSI/UL Urine RBC 51-100 H (0-2) /hpf Urine WBC 21-50 H (0-3) /hpf Ur Squamous Epith Cells Few (Few) /hpf Urine Bacteria Trace /hpf Urine Casts >20 Ur Random Creatinine Cancelled U Random Total Protein 423 mg/dL Ur Random Sodium 49 meq/L Ur Random Calcium Cancelled Urine Creatinine 467.3 mg/dL Calcium/Creat Ratio Cancelled Miscellaneous Test Pending <Shant Zaidi MD - Last Filed: 06/15/25 06:49> Discharge Plan Discharge Clinical Impression: Palpable purpura, Proteinuria, Acute kidney injury, Morbid obesity with body mass index (BMI) greater than or equal to 50, Lower extremity edema <Marcela Carias APRN - Last Filed: 06/15/25 04:34> Patient Disposition: Still a Patient <Marcela Carias APRN - Last Filed: 06/15/25 04:34> Condition: Stable <Marcela Carias APRN - Last Filed: 06/15/25 04:34>
[2025-06-15] MEDS: MORPHINE SULFATE (*CRX) 4 MG/ML INJ IV PUSH ×3 (01:46→09:41)
[2025-06-15] MEDS: SODIUM CHLORIDE 0.9% IV 1,000 ML 999 ML IV CONT ×2 (01:46→04:17)
[2025-06-15 02:14] LABS: Hematocrit 41.7 % (42.0-52.0); Hemoglobin 13.0 g/dL (14.0-18.0); Immature Granulocyte Percent A 0.2 % (0-0.5); Immature Platelet Fraction Pct 6.4 % (0.9-11.2); Lymphocytes Absolute Auto 1.36 K/mm3 (0.9-3.2); Mean Corpuscular HGB Conc 31.2 g/dl (32-36); Mean Corpuscular Hemoglobin 26.2 pg (26-34); Mean Corpuscular Volume 84.1 fl (80-100); Nucleated Red Blood Cells Absolute Auto 0.000 K/mm3 (0.0-0.012); Nucleated Red Blood Cells Perc 0.0 % (0.0-0.2); Platelet Count Result 166 k/mm3 (150-375); Red Blood Count 4.96 M/mm3 (4.6-6.20); White Blood Count 8.8 K/mm3 (4.5-10.0)
[2025-06-15 02:23] LABS: Alanine Aminotransferase 20 U/L (6-50); Albumin Level 3.9 g/dL (3.5-5.1); Alkaline Phosphatase 65 U/L (38-126); Anion Gap 7 mmol/L (4-12); Aspartate Amino Transferase 24 U/L (17-59); Bilirubin,Total 0.6 mg/dL (0.2-1.3); Blood Urea Nitrogen 23 mg/dL (9-20); Calcium 8.6 mg/dL (8.4-10.2); Carbon Dioxide 27 mmol/L (22-30); Chloride 102 mmol/L (98-107); Estimated CRCL calculation 62 ml/min; Estimated Glomerular Filt Rate 33; Glucose 102 mg/dL (65-110); Potassium 3.5 mmol/L (3.4-5.0); Sodium 136 mmol/L (137-145); Total Protein 6.9 g/dL (6.3-8.2)
[2025-06-15 02:26] LABS: INR 1.1; Prothrombin Time 14.0 Seconds (11.1-14.7)
[2025-06-15 02:27] LABS: Partial Thromboplastin Time 30.9 Seconds (22.3-36.8)
[2025-06-15 02:38] LABS: Add Urine Microscopic? YES; Appearance Urine Turbid (Clear); Glucose Urine UA Trace mg/dL (Negative); Leukocyte Esterase Ur 1+ LEU/UL (Negative); Need Manual Microscopic Reviewed; Nitrate Urine Negative (Negative); Non Pathogenic Casts >20; Specific Grav Ur 1.022 (1.001-1.035)
[2025-06-15] MEDS: HYDROmorphone HCL INJ (*CRX) 1 MG/ML SYR 0.5 MG IV PUSH (02:54)
[2025-06-15 04:24] LABS: Creatine Kinase 67 U/L (55-170)
[2025-06-15] MEDS: SODIUM CHLORIDE 0.9% IV 1,000 ML 125 ML IV CONT (05:12)
--- NOTE | 2025-06-15 05:16 | WPCEDHO ---
ED Hand Off Checklist All vitals saved:Y IV Site documented:Y All med administrations documented:Y Triage Note Triage Note Pt arrives w/ c/o ilya leg 06/15/25 00:05 swelling and rash that began today. Pt [place] that [place] the [place] and began to feel tightness in his lower legs and then noticed a purple/ red rash on ilya leg and lower abd . Agree with triage note. Allergies cefepime Allergy (Intermediate, Verified 06/14/25 22:47) Rash peanut Allergy (Unknown, Verified 06/14/25 22:47) Itching iodine Adverse Reaction (Intermediate, Verified 06/14/25 22:47) Blister Family History (Last Reviewed 06/15/25 @ 04:09 by Marcela Carias APRN) Mother Skin cancer Active Medications including assessments/comments Sodium Chloride (Normal Saline Iv) 1,000 mls @ 125 mls/hr IV CONT .Q8H LEROY Last Admin: 06/15/25 05:12 Dose: 125 mls/hr Documented By: CASE Infusion/Titration Document 06/15/25 05:12 PENDING SALE TO [facility] (Rec: 06/15/25 05:12 PENDING SALE TO [facility] [id number]) Intake IV Site Peripheral Access Left Hand Container Volume 1,000 Waste Amount 0 Dosing Infusion Rate 125 Cumulative Dose Not Applicable Increase/Decrease Started Elapsed Time Elapsed Time ( 0m minutes) Morphine Sulfate (Morphine Sulfate (*Crx) 4 Mg/Ml Inj) 4 mg IV PUSH Q2H PRN PRN Reason: Pain Rated 7-10 Last Admin: 06/15/25 05:12 Dose: 4 mg Documented By: CASE MAR Pain Assessment Document 06/15/25 05:12 PENDING SALE TO [facility] (Rec: 06/15/25 05:12 PENDING SALE TO [facility] [id number]) Pain Evaluation Pain Evaluation Assessment Pain Scale Pain Scale Used Numeric (1 - 10) Self Report Pain Assessment Reported Pain Level 8 Pain Score Pain Score 8: Self Report Administered/Completed Medications Discontinued Medications Hydromorphone HCl (Hydromorphone Hcl Inj (*Crx) 1 Mg/Ml Syr) 0.5 mg IV PUSH ONCE STA Stop: 06/15/25 02:44 Last Admin: 06/15/25 02:54 Dose: 0.5 mg Documented By: CASE Sodium Chloride (Normal Saline Iv) 1,000 mls @ 999 mls/hr IV CONT .Q1H1M STA Stop: 06/15/25 02:13 Last Infusion: 06/15/25 02:50 Dose: Infused Documented By: Admin: 06/15/25 01:46 Dose: 999 mls/hr Documented By: CASE Sodium Chloride (Normal Saline Iv) 1,000 mls @ 999 mls/hr IV CONT .Q1H1M STA Stop: 06/15/25 05:14 Last Infusion: 06/15/25 05:12 Dose: Infused Documented By: Admin: 06/15/25 04:17 Dose: 999 mls/hr Documented By: CASE Morphine Sulfate (Morphine Sulfate (*Crx) 4 Mg/Ml Inj) 4 mg IV PUSH ONCE STA Stop: 06/15/25 01:14 Last Admin: 06/15/25 01:46 Dose: 4 mg Documented By: CASE Prednisone (Prednisone 20 Mg Tablet) 20 mg PO ONCE ONE Stop: 06/15/25 04:39 Last Admin: 06/15/25 05:12 Dose: 20 mg Documented By: CASE Interventions/Assessments IV / Saline Lock, Insert Start: 06/15/25 01:34 Freq: Status: Active Protocol: Document 06/15/25 02:40 PENDING SALE TO [facility] (Rec: 06/15/25 02:40 PENDING SALE TO [facility] [id number]) IV Assessment Peripheral Access Left Hand IV Catheter Access Initiated IV Insertion Date 06/15/25 IV Insertion Time 02:40 Catheter Gauge 18 IV Insertion 1 Attempts Ultrasound Used for No Placement IV Site Assessment WNL IV Care and WNL Maintenance Last Vital Signs Temperature 98.4 F 06/14/25 22:55 Pulse Rate 73 06/15/25 05:01 Respiratory Rate 18 06/15/25 05:01 Pulse Oximetry 95 06/15/25 05:01 Blood Pressure 121/70 06/15/25 05:01 Blood Pressure Mean 84 06/15/25 05:01 Blood Pressure Position Sitting 06/14/25 22:55 Oxygen Delivery Room Air 06/14/25 22:55 Weight 164.4 kg 06/14/25 22:55 Last Result - Abnormals Only Hgb 13.0 g/dL (14.0-18.0) L 06/15/25 01:33 Hct 41.7 % (42.0-52.0) L 06/15/25 01:33 MCHC 31.2 g/dl (32-36) L 06/15/25 01:33 RDW 15.9 % (11.5-14.5) H 06/15/25 01:33 MPV 11.5 fl (7.4-10.4) H 06/15/25 01:33 Neut % (Auto) 74.6 % (45.5-73.1) H 06/15/25 01:33 Lymph % (Auto) 15.4 % (18.3-44.2) L 06/15/25 01:33 [place] % (Auto) 8.7 % (2.6-8.5) H 06/15/25 01:33 [place] # (Auto) 0.8 K/mm3 (0.1-0.6) H 06/15/25 01:33 Sodium 136 mmol/L (137-145) L 06/15/25 01:33 BUN 23 mg/dL (9-20) H D 06/15/25 01:33 Creatinine 2.18 mg/dL (0.7-1.3) H 06/15/25 01:33 Estimated GFR 33 (59-) L 06/15/25 01:33 Urine Appearance Turbid (Clear) H 06/15/25 01:41 Urine Protein 3+ mg/dL (Negative) H 06/15/25 01:41 Urine Glucose (UA) Trace mg/dL (Negative) H 06/15/25 01:41 Urine Ketones Trace mg/dL (Negative) H 06/15/25 01:41 Ur Blood (Man) 3+ (Negative) H 06/15/25 01:41 Urine Bilirubin 1+ (Negative) H 06/15/25 01:41 Leukocyte Esterase Rfl 1+ MESSI/UL (Negative) H 06/15/25 01:41 Urine RBC 51-100 /hpf (0-2) H 06/15/25 01:41 Urine WBC 21-50 /hpf (0-3) H 06/15/25 01:41 Most Recent Suicide Severity Rating Suicide Severity Rating NO RISK INDICATED 06/15/25 00:05
[2025-06-15 05:42] LABS: Total Protein Urine Random 423 mg/dL
--- NOTE | 2025-06-15 06:24 | ADMGEN ---
This patient, Zheng Carrizales, was admitted to 3 Med Surg Room 309-01. Patient/family oriented to hospital policies and general routines including ID bracelet, bed and alarms, visiting hours, pain management, procedures, bathroom and other care routines, personal items, smoking policy, room service/diet, and visiting hours. Information on how to activate the Rapid Response Team has been discussed. Patient/Family are encouraged to report perceived risks to care and to ask questions if they do not understand what they are told or what they should do.
--- NOTE | 2025-06-15 09:28 | PM.CNNEP ---
Assessment and Plan Assessment and plan (1) Acute kidney injury: Code(s): N17.9 - Acute kidney failure, unspecified Status: Acute Assessment and Plan: The patient has acute kidney injury. Looking back in the records it looks like every urinalysis has shown blood. Sometimes he has pus and sometimes he does not. He has had at least 2 episodes of gross hematuria were self-limited. And of course he has this severe palpable purpuric rash. This fits the pattern of Henoch-Schoenlein purpura. Each of the other 2 times his creatinine worsened it got better on its own, although he was also given prednisone for the skin rash in March he had received cefepime, Flagyl, and vancomycin back then.. To the story is a little bit complex. I think the best thing to do right now would be to do a kidney biopsy today. I am going to hold off on steroids because of the sore on his alston. Will recheck a creatinine tomorrow after he has gotten some IV fluid and if the number is worse we can start steroids then. His sugars will probably become a problem then. Even though he seems to have these periodic episodes of LEONEL, even when his kidney function is normal, he seems to have some proteinuria and hematuria so just for that reason he would need a biopsy anyway. In the meantime I am going to get serology to rule out vasculitic issues. Will get cultures of the blood and urine. I will let hospitalist decide if he needs antibiotics for the sore on his alston The patient and I discussed the renal biopsy. The patient will get a CT scan or ultrasound to localize the kidneys.? The patient will get local injection of lidocaine for anesthesia.? A needle will be placed through the skin and will enter the kidney.? One or more small pieces of the kidney will be removed, less than 1mm wide by about 5mm long. The patient will be told to lie on the back for a couple of hours to make sure no bleeding occurs.? We can't put a finger on the kidney hole so we rely on the intestines, etc. pushing on the kidney to stop the bleeding.? Everybody bleeds a little to cause the scab but a few will experience more bleeding.? In some it will be more serious.? 1/100 may need a blood transfusion and 1/500-1000 will need to have someone go in and stop the bleeding and possibly remove the kidney.? This is very rare and has only happened to myself once in the 30 plus years I have been referring for biopsies.? The patient agrees to proceed. (2) Palpable purpura: Code(s): D69.2 - Other nonthrombocytopenic purpura Status: Acute Assessment and Plan: Possibly HSP. (3) Proteinuria: Code(s): R80.9 - Proteinuria, unspecified Status: Acute Assessment and Plan: This could be from being overweight, his underlying diet-controlled diabetes, or whatever is going on in the kidneys now. (4) Anemia: Qualifiers: Anemia type: unspecified type Qualified Code(s): D64.9 - Anemia, unspecified Code(s): D64.9 - Anemia, unspecified Status: Acute Assessment and Plan: Hemoglobin is slightly low. He does take iron as an outpatient. (5) Morbid obesity with body mass index (BMI) greater than or equal to 50: Code(s): E66.01 - Morbid (severe) obesity due to excess calories Status: Acute Assessment and Plan: He just started taking the weight loss drug about 2 weeks ago. He can not remember the name of this medication but he will find out and let me know. History of Present Illness Reason for Consult Consult date: 06/15/25 Chief Complaint Chief complaint: palpable purpura, LEONEL, proteinuria History of Present Illness Narrative: Zheng is a very pleasant 40-year-old gentleman who has multiple medical problems including longstanding hematuria, 2 episodes of LEONEL with intervening normal creatinine, steroid induced hyperglycemia but does not take any medication for sugar when not on steroids and his A1c runs in the 4s, history of atrial fibrillation with RVR, autoimmune hemolytic anemia back in 2019, hypertriglyceridemia, high body mass index, history of acute pancreatitis. In 2019 the patient came into the hospital with autoimmune hemolytic anemia, AFib with RVR, DKA, and a high creatinine. The patient was treated supportively and his creatinine improved. Sugars improved. [place] to be diabetic then. Apparently over the years the patient has been able to get off of all diabetic medication and he has had really good A1cs. In 2021 the patient had gross hematuria. He went to an emergency room near by I believe [facility]. He was tested and things were ?fine? and was told to follow-up with his kidney doctor. The next day the hematuria disappeared and so he did not follow-up with anybody. He has seen a urologist who did a scope and found a urethral stricture but nothing to explain the hematuria. In March the patient came in with a rash. He also had renal failure. The patient was admitted and given fluids and his creatinine improved. He had the rash biopsied and this did not show vasculitis. There was some question of flea bites, but also some question of a reaction to antibiotics he was on. He received prednisone in everything got better within a day or 2. This rash was nothing like the 1 that he has now. A couple of weeks ago the patient had blood work drawn and his kidney function was normal again so he was told he did not need to come back to the kidney doctor. Yesterday morning the patient woke up and was feeling fine he got dressed and went to work. Last night he got home at about 9:00 p.m. and took his jeans on and found a diffuse rash on his legs only. He did not feel bad otherwise although he had some burning on his legs at various parts of the rash. He came to the ER. His creatinine is up again, UA shows blood and pus in his urine, and he had the diffuse severe rash on his legs. He says he had a blister on his right alston which developed a few weeks ago and he has been caring for with just topical [id number] medications. However yesterday it broke open and started leaking yellow fluid. Now there is a scab over this area. Patient denies any rash anywhere else. No malodor rash. No sores in his mouth. He does not cough up blood or blow blood out of his nose. No pulmonary or GI issues The patient does not smoke or drink Review of Systems Constitutional: Constitutional: Reports no additional constitutional complaints Eyes: Eyes: Reports no additional eye complaints ENT: Reports system reviewed and no additional complaints, except as documented Cardiovascular: Cardiovascular: Reports no additional cardiovascular complaints Respiratory: Respiratory: Reports no additional respiratory complaints Gastrointestinal: Gastrointestinal: Reports no additional gastrointestinal complaints Genitourinary: Genitourinary: Reports no additional male genitourinary complaints Musculoskeletal: Musculoskeletal: Reports no additional musculoskeletal complaints Integumentary/Breasts: Skin/Breast: Reports system reviewed and no additional complaints, except as docu Neurologic: Reports system reviewed and no additional complaints, except as documented Psychiatric: Psychiatric: Reports no additional psychiatric complaints Endocrine: Endocrine: Reports no additional endocrine complaints PMFSH Past Medical History Medical History History of acute pancreatitis (2022) Steroid-induced diabetes mellitus (2019) As part of treatment for COVID in 2019 (A1c of 9.6) and in August 2024 (glucoses of 600) Hypertriglyceridemia Atrial fibrillation with RVR Autoimmune hemolytic anemia (08/15/19) Surgical History Surgical History H/O vasectomy Family History Family History Mother Skin cancer Social History Social History Social History: Patient quit smoking about 5 years ago after smoking a pack a day for about 12 years. He denies alcohol or drug use. Lives at home with his 2 sons. He is . Children currently staying with his ex-. Patient is a full code. He nominates his ex- Karla be the individual would make medical decisions for him if he is unable. Smoking packs per day: 1 Smoking cigarettes per day: 20.0 Years smoked: 20 Smoking pack-years: 20.00 Smoking status: Former smoker Second hand tobacco smoke exposure: Yes Alcohol intake: never Drinks per week: 0 Substance use: never Lack of Transportation: No Lack of Food: Never True Current Housing: I Have Housing Concerned About Future Housing: No Difficulty Paying Gas/Electric Bills: No Difficulty Paying for Meds: No Currently Unemployed: No Education: Bachelor's Degree Difficulty w/ Childcare or Family Care: No Gender identity (if verbalized by the patient): Male Spiritual care concerns: No Agree to blood products: Yes Meds Home Medications and Allergies Home Medications ?Medication ?Instructions ?Recorded ?Confirmed ?Type cyclobenzaprine 5 mg tablet 10 mg PO HS PRN muscle spasm 05/24/23 06/15/25 History ergocalciferol (vitamin D2) 50,000 50,000 unit PO WEEKLY 05/24/23 06/15/25 History unit tablet ferrous sulfate 325 mg (65 mg 325 mg PO DAILY 04/05/25 06/15/25 History iron) tablet (FeroSul) levothyroxine 25 mcg tablet 25 mcg PO DAILY@0630 04/05/25 06/15/25 History testosterone cypionate 200 mg/mL 200 mg IM .biweekly 04/05/25 06/15/25 History intramuscular oil amlodipine 5 mg tablet 5 mg PO DAILY 30 days #30 tabs 04/11/25 06/15/25 Rx Allergies Allergy/AdvReac Type Severity Reaction Status Date / Time cefepime Allergy Intermediate Rash Verified 06/15/25 06:25 peanut Allergy Unknown Itching Verified 06/15/25 06:25 iodine AdvReac Intermediate Blister Verified 06/15/25 06:25 Vital Signs Vital Signs - 24 hr 06/14/25 22:55 06/15/25 00:05 06/15/25 00:16 Temperature 98.4 F Pulse Rate 100 85 78 Respiratory Rate 18 19 21 H Blood Pressure 154/94 H 121/75 107/69 Pulse Oximetry 98 97 96 Oxygen Delivery Room Air 06/15/25 00:31 06/15/25 00:46 06/15/25 01:01 Temperature Pulse Rate 79 75 76 Respiratory Rate 25 H 26 H 25 H Blood Pressure 108/74 111/73 131/84 Pulse Oximetry 97 96 97 Oxygen Delivery 06/15/25 01:16 06/15/25 01:34 06/15/25 01:46 Temperature Pulse Rate 78 75 77 Respiratory Rate 23 H 22 H 16 Blood Pressure 126/81 122/86 116/74 Pulse Oximetry 98 96 98 Oxygen Delivery 06/15/25 02:01 06/15/25 02:16 06/15/25 02:55 Temperature Pulse Rate 77 76 75 Respiratory Rate 19 16 15 Blood Pressure 135/90 132/87 127/81 Pulse Oximetry 100 94 97 Oxygen Delivery 06/15/25 03:01 06/15/25 03:15 06/15/25 03:31 Temperature Pulse Rate 78 78 76 Respiratory Rate 14 21 H 14 Blood Pressure 98/87 L 134/87 131/83 Pulse Oximetry 98 95 97 Oxygen Delivery 06/15/25 03:46 06/15/25 04:01 06/15/25 04:16 Temperature Pulse Rate 75 71 77 Respiratory Rate 17 15 23 H Blood Pressure 133/79 134/77 132/81 Pulse Oximetry 96 99 96 Oxygen Delivery 06/15/25 04:31 06/15/25 04:46 06/15/25 05:01 Temperature Pulse Rate 70 71 73 Respiratory Rate 20 22 H 18 Blood Pressure 129/71 124/67 121/70 Pulse Oximetry 96 98 95 Oxygen Delivery 06/15/25 06:28 Temperature 96.8 F L Pulse Rate 68 Respiratory Rate 16 Blood Pressure 125/62 Pulse Oximetry 97 Oxygen Delivery Exam Narrative: Exam Narrative: Well developed well-nourished male in no acute distress Skin is warm and dry with severe palpable purpura on lower extremities Head normocephalic atraumatic Eyes normal sclerae and conjunctivae Mouth normal lips teeth and gums Neck no nodes no thyromegaly no carotid bruits Axillae no nodes Back no CVA tenderness Lungs symmetric and clear to auscultation and percussion Heart regular rate and rhythm without rub or gallop Abdomen bowel sounds positive soft nontender, no HSM, masses, or bruits. Extremities no cyanosis, clubbing, and 1-2+ edema Pulses 2+ equal in radial arteries Psychological not anxious or depressed Neuro alert and oriented x3 motor 5/5 cranial nerves 2-12 intact reflexes 2+ and equal in the biceps and patellar tendons cerebellar normal rapid alternating movements Results Lab Results 06/15/25 01:33 06/15/25 01:33 Lab results: Most recent lab results Calcium 8.6 mg/dL (8.4-10.2) 06/15/25 01:33 Urine Creatinine 467.3 mg/dL 06/15/25 01:41
[2025-06-15 11:07] LABS: Immature Reticulocyte Fraction 16.7 % (3.0-15.9); Reticulocyte Hemoglobin Conten 26.9 pg (28.2-36.6); Reticulocytes Absolute 0.08 10^6/uL (0.02-0.10)
[2025-06-15 12:01] LABS: Creatine Kinase 52 U/L (55-170)
--- NOTE | 2025-06-15 13:19 | PM.IMHP ---
H&P: HPI History of Present Illness Date/Time: 06/15/25 13:19 Chief Complaint: leg swelling/rash Narrative: Patient with history of CKD, hypothyroidism, DM 2, HTN recently has been treated for possible cellulitis presented with few days with spots on his legs initially started on his groin area and moving down. Denies any pain/teaching but has been having bilateral leg swelling denies any fever or chills. Patient has been having episodes of hematuria the past couple of weeks Patient notes that recently has been having hives on upper and lower extremity and has been treated for possible cellulitis (reviewed the chart, has been treated with cefepime Flagyl and vancomycin in March) without improvement. Finally he received prednisone and symptoms improved. Patient presents to ER for further management. Patient received prednisone. Nephrology was consulted. Recommended to hold off prednisone .Recommended kidney biopsy. Review of Systems Review of Systems: All systems reviewed & are unremarkable except as noted in HPI and below Constitutional: Constitutional: Reports no additional constitutional complaints Eyes: Eyes: Reports no additional eye complaints ENT: Reports system reviewed and no additional complaints, except as documented Cardiovascular: Cardiovascular: Reports no additional cardiovascular complaints Respiratory: Respiratory: Reports no additional respiratory complaints Gastrointestinal: Gastrointestinal: Reports no additional gastrointestinal complaints Genitourinary: Genitourinary: Reports no additional male genitourinary complaints Musculoskeletal: Musculoskeletal: Reports no additional musculoskeletal complaints Integumentary/Breasts: Skin/Breast: Reports system reviewed and no additional complaints, except as docu Neurologic: Reports system reviewed and no additional complaints, except as documented Psychiatric: Psychiatric: Reports no additional psychiatric complaints Endocrine: Endocrine: Reports no additional endocrine complaints [facility] Past Medical History Medical History History of acute pancreatitis (2022) Steroid-induced diabetes mellitus (2019) As part of treatment for COVID in 2019 (A1c of 9.6) and in August 2024 (glucoses of 600) Hypertriglyceridemia Atrial fibrillation with RVR Autoimmune hemolytic anemia (08/15/19) Surgical History Surgical History H/O vasectomy Family History Family History Mother Skin cancer Social History Social History Social History: Patient quit smoking about 5 years ago after smoking a pack a day for about 12 years. He denies alcohol or drug use. Lives at home with his 2 sons. He is . Children currently staying with his ex-. Patient is a full code. He nominates his ex- Karla be the individual would make medical decisions for him if he is unable. Smoking packs per day: 1 Smoking cigarettes per day: 20.0 Years smoked: 20 Smoking pack-years: 20.00 Smoking status: Former smoker Second hand tobacco smoke exposure: Yes Alcohol intake: never Drinks per week: 0 Substance use: never Lack of Transportation: No Lack of Food: Never True Current Housing: I Have Housing Concerned About Future Housing: No Difficulty Paying Gas/Electric Bills: No Difficulty Paying for Meds: No Currently Unemployed: No Education: Bachelor's Degree Difficulty w/ Childcare or Family Care: No Gender identity (if verbalized by the patient): Male Spiritual care concerns: No Agree to blood products: Yes Meds Home Medications and Allergies Home Medications ?Medication ?Instructions ?Recorded ?Confirmed ?Type cyclobenzaprine 5 mg tablet 10 mg PO HS PRN muscle spasm 05/24/23 06/15/25 History ergocalciferol (vitamin D2) 50,000 50,000 unit PO WEEKLY 05/24/23 06/15/25 History unit tablet ferrous sulfate 325 mg (65 mg 325 mg PO DAILY 04/05/25 06/15/25 History iron) tablet (FeroSul) levothyroxine 25 mcg tablet 25 mcg PO DAILY@0630 04/05/25 06/15/25 History testosterone cypionate 200 mg/mL 200 mg IM .biweekly 04/05/25 06/15/25 History intramuscular oil amlodipine 5 mg tablet 5 mg PO DAILY 30 days #30 tabs 04/11/25 06/15/25 Rx Allergies Allergy/AdvReac Type Severity Reaction Status Date / Time cefepime Allergy Intermediate Rash Verified 06/15/25 06:25 peanut Allergy Unknown Itching Verified 06/15/25 06:25 iodine AdvReac Intermediate Blister Verified 06/15/25 06:25 Vital Signs Vital Signs - 24 hr 06/14/25 22:55 06/15/25 00:05 06/15/25 00:16 Temperature 98.4 F Pulse Rate 100 85 78 Respiratory Rate 18 19 21 H Blood Pressure 154/94 H 121/75 107/69 Pulse Oximetry 98 97 96 Oxygen Delivery Room Air 06/15/25 00:31 06/15/25 00:46 06/15/25 01:01 Temperature Pulse Rate 79 75 76 Respiratory Rate 25 H 26 H 25 H Blood Pressure 108/74 111/73 131/84 Pulse Oximetry 97 96 97 Oxygen Delivery 06/15/25 01:16 06/15/25 01:34 06/15/25 01:46 Temperature Pulse Rate 78 75 77 Respiratory Rate 23 H 22 H 16 Blood Pressure 126/81 122/86 116/74 Pulse Oximetry 98 96 98 Oxygen Delivery 06/15/25 02:01 06/15/25 02:16 06/15/25 02:55 Temperature Pulse Rate 77 76 75 Respiratory Rate 19 16 15 Blood Pressure 135/90 132/87 127/81 Pulse Oximetry 100 94 97 Oxygen Delivery 06/15/25 03:01 06/15/25 03:15 06/15/25 03:31 Temperature Pulse Rate 78 78 76 Respiratory Rate 14 21 H 14 Blood Pressure 98/87 L 134/87 131/83 Pulse Oximetry 98 95 97 Oxygen Delivery 06/15/25 03:46 06/15/25 04:01 06/15/25 04:16 Temperature Pulse Rate 75 71 77 Respiratory Rate 17 15 23 H Blood Pressure 133/79 134/77 132/81 Pulse Oximetry 96 99 96 Oxygen Delivery 06/15/25 04:31 06/15/25 04:46 06/15/25 05:01 Temperature Pulse Rate 70 71 73 Respiratory Rate 20 22 H 18 Blood Pressure 129/71 124/67 121/70 Pulse Oximetry 96 98 95 Oxygen Delivery 06/15/25 06:28 06/15/25 08:00 Temperature 96.8 F L Pulse Rate 68 Respiratory Rate 16 Blood Pressure 125/62 Pulse Oximetry 97 Oxygen Delivery Room Air Exam Narrative: Exam Narrative: Well developed well-nourished male in no acute distress Skin is warm and dry with severe palpable purpura on lower extremities Head normocephalic atraumatic Eyes normal sclerae and conjunctivae Mouth normal lips teeth and gums Neck no nodes no thyromegaly no carotid bruits Axillae no nodes Back no CVA tenderness Lungs symmetric and clear to auscultation and percussion Heart regular rate and rhythm without rub or gallop Abdomen bowel sounds positive soft nontender, no HSM, masses, or bruits. Extremities no cyanosis, clubbing, and 1-2+ edema Pulses 2+ equal in radial arteries Psychological not anxious or depressed Neuro alert and oriented x3 motor 5/5 cranial nerves 2-12 intact reflexes 2+ and equal in the biceps and patellar tendons cerebellar normal rapid alternating movements H&P: Results Labs Labs: Short CBC 06/15/25 Range/Units 01:33 WBC 8.8 (4.5-10.0) K/mm3 Hgb 13.0 L (14.0-18.0) g/dL Hct 41.7 L (42.0-52.0) % Plt Count 166 (150-375) k/mm3 BMP 06/15/25 01:33 Sodium 136 L Potassium 3.5 Chloride 102 Carbon Dioxide 27 BUN 23 H D Creatinine 2.18 H Glucose 102 Calcium 8.6 Cardiac Enzymes 06/15/25 06/15/25 Range/Units 01:33 10:31 Total Creatine Kinase 67 52 L (55-170) U/L Liver Function 06/15/25 Range/Units 01:33 Total Bilirubin 0.6 (0.2-1.3) mg/dL AST 24 (17-59) U/L ALT 20 (6-50) U/L Alkaline Phosphatase 65 (38-126) U/L Albumin 3.9 (3.5-5.1) g/dL Urine 06/15/25 Range/Units 01:41 Urine Color Dark yellow (Yellow) Urine Appearance Turbid H (Clear) Urine pH 5.0 (5.0-9.0) Ur Specific [place] 1.022 (1.001-1.035) Urine Protein 3+ H (Negative) mg/dL Urine Glucose (UA) Trace H (Negative) mg/dL Assessment and Plan Assessment and plan (1) Acute kidney injury: Code(s): N17.9 - Acute kidney failure, unspecified Status: Acute Assessment and Plan: Concern for vasculitis Plan for ultrasound of kidney and possible biopsy next Friday Hold off prednisone for now Nephrology team on board Monitor kidney function (2) Palpable purpura: Code(s): D69.2 - Other nonthrombocytopenic purpura Status: Acute Assessment and Plan: Possibly HSP. Plan for kidney biopsy on Friday Hold off prednisone Blood culture pending Continue monitor (3) Proteinuria: Code(s): R80.9 - Proteinuria, unspecified Status: Acute Assessment and Plan: Follow nephrology recommendation (4) Anemia: Qualifiers: Anemia type: unspecified type Qualified Code(s): D64.9 - Anemia, unspecified Code(s): D64.9 - Anemia, unspecified Status: Acute Assessment and Plan: Monitor H&H Transfuse if hemoglobin less than 7 Will check iron panel (5) Morbid obesity with body mass index (BMI) greater than or equal to 50: Code(s): E66.01 - Morbid (severe) obesity due to excess calories Status: Acute Assessment and Plan: . Plan Bilateral leg swelling/wound Hold of IV fluids Will start antibiotic continue to monitor
--- NOTE | 2025-06-15 15:04 | PM.DS ---
DS: Admitting Diagnosis Discharge Date 06/15/25 Admitting Diagnosis Bilateral leg rashes, consult for vasculitis DS: Discharge Diagnosis Discharge Diagnosis (1) Acute kidney injury: Code(s): N17.9 - Acute kidney failure, unspecified Status: Acute Assessment and Plan: Concern for vasculitis Plan for ultrasound of kidney and possible biopsy next Friday. Patient left AMA and wanted to go to another hospital to get biopsy sooner Hold off prednisone for now Nephrology team on board Monitor kidney function (2) Palpable purpura: Code(s): D69.2 - Other nonthrombocytopenic purpura Status: Acute Assessment and Plan: Possibly HSP. Plan for kidney biopsy on Friday Hold off prednisone Blood culture pending Continue monitor (3) Proteinuria: Code(s): R80.9 - Proteinuria, unspecified Status: Acute Assessment and Plan: Follow nephrology recommendation (4) Anemia: Qualifiers: Anemia type: unspecified type Qualified Code(s): D64.9 - Anemia, unspecified Code(s): D64.9 - Anemia, unspecified Status: Acute Assessment and Plan: Monitor H&H Transfuse if hemoglobin less than 7 Will check iron panel (5) Morbid obesity with body mass index (BMI) greater than or equal to 50: Code(s): E66.01 - Morbid (severe) obesity due to excess calories Status: Acute Assessment and Plan: . Plan Bilateral leg swelling/wound Hold of IV fluids Will start antibiotic continue to monitor DS: Summary Hospital Course Hospital Course: Patient with history of CKD, hypothyroidism, DM 2, HTN recently has been treated for possible cellulitis presented with few days with spots on his legs initially started on his groin area and moving down. Denies any pain/teaching but has been having bilateral leg swelling denies any fever or chills. Patient has been having episodes of hematuria the past couple of weeks Patient notes that recently has been having hives on upper and lower extremity and has been treated for possible cellulitis (reviewed the chart, has been treated with cefepime Flagyl and vancomycin in March) without improvement. Finally he received prednisone and symptoms improved. Patient presents to ER for further management. Patient received prednisone. Nephrology was consulted. Recommended to hold off prednisone .Recommended kidney biopsy. 06/15/25 Patient left AMA. He wanted to to go to another hospital to get biopsies sooner. Status at Discharge Overall status at discharge: patient is progressing back to baseline Time Spent with Patient Time attestation: Total time spent providing and/or coordinating discharge services: Time spent: Greater than 30 minutes Exam Narrative: Exam Narrative: Well developed well-nourished male in no acute distress Skin is warm and dry with severe palpable purpura on lower extremities Head normocephalic atraumatic Eyes normal sclerae and conjunctivae Mouth normal lips teeth and gums Neck no nodes no thyromegaly no carotid bruits Axillae no nodes Back no CVA tenderness Lungs symmetric and clear to auscultation and percussion Heart regular rate and rhythm without rub or gallop Abdomen bowel sounds positive soft nontender, no HSM, masses, or bruits. Extremities no cyanosis, clubbing, and 1-2+ edema Pulses 2+ equal in radial arteries Psychological not anxious or depressed Neuro alert and oriented x3 motor 5/5 cranial nerves 2-12 intact reflexes 2+ and equal in the biceps and patellar tendons cerebellar normal rapid alternating movements DS: Data Data Completed and Pending Labs on day of discharge: Labs from last 24 hours 06/15/25 06/15/25 06/15/25 13:21 11:49 10:31 WBC RBC Hgb Hct MCV MCH MCHC RDW Plt Count MPV Immature Gran % (Auto) Neut % (Auto) Lymph % (Auto) [place] % (Auto) Eos % (Auto) Baso % (Auto) Lymph # (Auto) [place] # (Auto) Eos # (Auto) Baso # (Auto) Abs Immat Gran (auto) Absolute Neuts (auto) Absolute Nucleated RBC Nucleated RBC % % Immature Plt Fraction ESR Absolute Retic Percent Retic Immature Retic Fraction Retic Hgb Content PT INR APTT Sodium Potassium Chloride Carbon Dioxide Anion Gap BUN Creatinine Estim Creat Clear Calc Estimated GFR Glucose POC Capillary Glucose 126 H Calcium Iron TIBC % Saturation Ferritin Cancelled Total Bilirubin AST ALT Alkaline Phosphatase Total Creatine Kinase 52 L Total Protein Albumin Urine Color Urine Appearance Urine pH Ur Specific [place] Urine Protein Urine Glucose (UA) Urine Ketones Ur Blood (Man) Urine Nitrate Urine Bilirubin Urine Urobilinogen Add Ur Microanalysis Leukocyte Esterase Rfl Urine RBC Urine WBC Ur Squamous Epith Cells Urine Bacteria Urine Casts Urine Osmolality Pending Ur Random Creatinine U Random Total Protein Ur Random Sodium Ur Random Calcium Urine Creatinine Calcium/Creat Ratio IgG Pending IgA Pending IgM Pending DIDIER Interpretation Pending OLGA LIDIA Screen Cancelled OLGA LIDIA Titer Cancelled OLGA LIDIA Titer 2 Cancelled OLGA LIDIA Titer 3 Cancelled OLGA LIDIA Pattern Cancelled OLGA LIDIA Pattern 2 Cancelled OLGA LIDIA Pattern 3 Cancelled OLGA LIDIA Comment Cancelled Glomerular Base Memb Ab Cancelled Complement C3 Pending Complement C4 Pending Tot Complement (CH50) Pending Miscellaneous Test 06/15/25 06/15/25 06/15/25 10:31 10:18 06:37 WBC RBC Hgb Hct MCV MCH MCHC RDW Plt Count MPV Immature Gran % (Auto) Neut % (Auto) Lymph % (Auto) [place] % (Auto) Eos % (Auto) Baso % (Auto) Lymph # (Auto) [place] # (Auto) Eos # (Auto) Baso # (Auto) Abs Immat Gran (auto) Absolute Neuts (auto) Absolute Nucleated RBC Nucleated RBC % % Immature Plt Fraction ESR 17 Absolute Retic 0.08 Percent Retic 1.78 Immature Retic Fraction 16.7 H Retic Hgb Content 26.9 L PT INR APTT Sodium Potassium Chloride Carbon Dioxide Anion Gap BUN Creatinine Estim Creat Clear Calc Estimated GFR Glucose POC Capillary Glucose 98 Calcium Iron Pending TIBC Pending % Saturation Pending Ferritin Pending Total Bilirubin AST ALT Alkaline Phosphatase Total Creatine Kinase Total Protein Albumin Urine Color Urine Appearance Urine pH Ur Specific [place] Urine Protein Urine Glucose (UA) Urine Ketones Ur Blood (Man) Urine Nitrate Urine Bilirubin Urine Urobilinogen Add Ur Microanalysis Leukocyte Esterase Rfl Urine RBC Urine WBC Ur Squamous Epith Cells Urine Bacteria Urine Casts Urine Osmolality Ur Random Creatinine U Random Total Protein Ur Random Sodium Ur Random Calcium Urine Creatinine Calcium/Creat Ratio IgG IgA IgM DIDIER Interpretation OLGA LIDIA Screen Pending OLGA LIDIA Titer OLGA LIDIA Titer 2 OLGA LIDIA Titer 3 OLGA LIDIA Pattern OLGA LIDIA Pattern 2 OLGA LIDIA Pattern 3 OLGA LIDIA Comment Glomerular Base Memb Ab Pending Complement C3 Complement C4 Tot Complement (CH50) Miscellaneous Test 06/15/25 06/15/25 01:41 01:33 WBC 8.8 RBC 4.96 Hgb 13.0 L Hct 41.7 L MCV 84.1 MCH 26.2 MCHC 31.2 L RDW 15.9 H Plt Count 166 MPV 11.5 H Immature Gran % (Auto) 0.2 Neut % (Auto) 74.6 H Lymph % (Auto) 15.4 L [place] % (Auto) 8.7 H Eos % (Auto) 0.8 Baso % (Auto) 0.3 Lymph # (Auto) 1.36 [place] # (Auto) 0.8 H Eos # (Auto) 0.1 Baso # (Auto) 0.0 Abs Immat Gran (auto) 0.02 Absolute Neuts (auto) 6.6 Absolute Nucleated RBC 0.000 Nucleated RBC % 0.0 % Immature Plt Fraction 6.4 ESR Absolute Retic Percent Retic Immature Retic Fraction Retic Hgb Content PT 14.0 INR 1.1 APTT 30.9 Sodium 136 L Potassium 3.5 Chloride 102 Carbon Dioxide 27 Anion Gap 7 BUN 23 H D Creatinine 2.18 H Estim Creat Clear Calc 62 Estimated GFR 33 L Glucose 102 POC Capillary Glucose Calcium 8.6 Iron TIBC % Saturation Ferritin Total Bilirubin 0.6 AST 24 ALT 20 Alkaline Phosphatase 65 Total Creatine Kinase 67 Total Protein 6.9 Albumin 3.9 Urine Color Dark yellow Urine Appearance Turbid H Urine pH 5.0 Ur Specific [place] 1.022 Urine Protein 3+ H Urine Glucose (UA) Trace H Urine Ketones Trace H Ur Blood (Man) 3+ H Urine Nitrate Negative Urine Bilirubin 1+ H Urine Urobilinogen 1.0 Add Ur Microanalysis Reviewed Leukocyte Esterase Rfl 1+ H Urine RBC 51-100 H Urine WBC 21-50 H Ur Squamous Epith Cells Few Urine Bacteria Trace Urine Casts >20 Urine Osmolality Ur Random Creatinine Cancelled U Random Total Protein 423 Ur Random Sodium 49 Ur Random Calcium Cancelled Urine Creatinine 467.3 Calcium/Creat Ratio Cancelled IgG IgA IgM DIDIER Interpretation OLGA LIDIA Screen OLGA LIDIA Titer OLGA LIDIA Titer 2 OLGA LIDIA Titer 3 OLGA LIDIA Pattern OLGA LIDIA Pattern 2 OLGA LIDIA Pattern 3 OLGA LIDIA Comment Glomerular Base Memb Ab Complement C3 Complement C4 Tot Complement (CH50) Miscellaneous Test Pending Discharge Plan Discharge Attending physician on discharge: Felipe Narayan Consulting providers: Miki Feldman; Felipe Narayan Discharging Clinician: Felipe Narayan Anticipated Discharge Date/Time: 06/15/25 16:03 Patient Disposition: Left Against Medical Advice Activity: as tolerated Diet: as tolerated and heart healthy Patient Language: Icelandic Discharge Medications: No Action ferrous sulfate [FeroSul] 325 mg (65 mg iron) tablet 325 mg PO DAILY testosterone cypionate 200 mg/mL oil 200 mg IM .biweekly Patient Comments: every other friday levothyroxine 25 mcg tablet 25 mcg PO DAILY@0630 amlodipine 5 mg tablet 5 mg PO DAILY 30 Days Qty: 30 0RF ergocalciferol (vitamin D2) 50,000 unit Tablet 50,000 unit PO WEEKLY Rx Instructions: Takes med on friday cyclobenzaprine 5 mg tablet 10 mg PO HS PRN (Reason: muscle spasm) Date of admission: 06/15/25 04:34 Primary Care Provider: Josh,[facility] Admitting Provider: Dunia Chadwick Attending physician on admission: Dunia Chadwick Condition: Stable
[2025-06-17 11:59] LABS: Iron 24 ug/dL (49-181)
[2025-06-17 12:56] LABS: Ferritin 49.20 ng/mL (17.9-464)
[2025-06-17 13:02] LABS: Percent Iron Saturation 11 % (20-50)
[2025-06-18 18:08] LABS: Anti-GBM Antibodies <0.2 units (0.0-0.9)
[2025-06-19 01:07] LABS: Osmolality, Urine 436 mOsmol/kg (.)
[2025-06-20 10:08] LABS: Immunoglobulin A, Qn 293 mg/dL (90-386); Immunoglobulin G, Qn 968 mg/dL (603-1613); Immunoglobulin M, Qn 111 mg/dL (20-172)
[2025-06-20 14:08] LABS: ANA by IFA Rfx Titer/Pattern Negative (.)
== END 2025-06-15 15:12 | disposition left against medical advice (07) ==
LOC: ANHED 06-15 04:34 → ANH3MEDSUR 06-15 07:09
PROVIDERS: Internal Medicine Nephrology; Admitting Provider Internal Medicine; Emergency Provider Registered Nurse; PCP Family Medicine; Visit Provider Internal Medicine
DX: N17.9 Acute kidney failure, unspecified (principal); D69.2 Other nonthrombocytopenic purpura; D80.9 Immunodeficiency with predominantly antibody defects, unspecified; D64.9 Anemia, unspecified; I48.91 Unspecified atrial fibrillation; E11.22 Type 2 diabetes mellitus with diabetic chronic kidney disease; N18.9 Chronic kidney disease, unspecified; E03.9 Hypothyroidism, unspecified; I12.9 Hypertensive chronic kidney disease with stage 1 through stage 4 chronic kidney disease, or unspecified chronic kidney disease; Z53.29 Procedure and treatment not carried out because of patient's decision for other reasons; R82.90 Unspecified abnormal findings in urine; E66.01 Morbid (severe) obesity due to excess calories; Z68.43 Body mass index [BMI] 50.0-59.9, adult; Z87.891 Personal history of nicotine dependence
CPT/HCPCS: 36415; 76770; 80053; 81001; 81050; 82550; 82570; 82728; 82784; 82948; 83540; 83550; 83935; 84156; 84300; 85025; 85046; 85055; 85610; 85652; 85730; 86038; 86160; 86162; 86334; 86364; 87040; 87086; 96361; 96374; 96375; 96376; 99285; G0378; J1171; J2270; J7030; J7512